=== PATIENT | female | born 1960 | race Caucasian/White ===

== ENCOUNTER 2016-07-05 06:22 | Inpatient (IN) ==
[2016-07-05] MEDS ORDERED: Ipratropium/Albuterol Neb 3 ML IH ONE (06:27)
[2016-07-05] MEDS ORDERED: methylPREDNISolone 125 MG/2 ML VIAL IVP ONE (06:27)
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
[2016-07-05 07:10] LABS: Basophils % 0.4 %; Eosinophils # 0.1 K/mcL (0.0-0.6); Eosinophils % 1.3 %; Hematocrit 39.7 % (35.3-44.9); Hemoglobin 12.1 g/dL (11.5-15.4); Immature Granulocytes % 0.7 % (0-4); Lymphocytes # 1.3 K/mcL (0.6-4.6); Lymphocytes % 15.2 %; Mean Corpuscular HGB Conc 30.5 g/dL (31.6-35.5); Mean Corpuscular Hemoglobin 30.9 pg (28.0-33.3); Mean Corpuscular Volume 101.3 fL (83.0-100.0); Mean Platelet Volume 9.6 fL (9.4-12.4); Monocytes # 0.5 K/mcL (0.0-1.3); Monocytes % 5.8 %; Neutrophils # 6.4 K/mcL (1.6-8.9); Nucleated Red Blood Cells 0.2 /100 WBC (0); Platelet Count 272 K/mcL (140-400); Red Blood Count 3.92 M/mcL (3.82-4.97); Red Cell Distribution Width 14.8 % (11.5-14.5); Segmented Neutrophils % 76.6 %
[2016-07-05 07:27] LABS: BUN/Creatinine Ratio 23 (6-26); Blood Urea Nitrogen 18 mg/dL (7-20); Calcium 8.9 mg/dL (8.6-10.8); Carbon Dioxide 30 mEq/L (19-29); Chloride 105 mEq/L (98-109); Glucose 136 mg/dL (70-99); Osmolality,Calculated 300 (280-300); Sodium 143 mEq/L (136-145); eGFR For African Americans > 60 (> 60); eGFR For Non-African Americans > 60 (> 60)
[2016-07-05] MEDS ORDERED: Furosemide 40 MG/4 ML VIAL IVP ONE (07:47)
[2016-07-05] MEDS ORDERED: Naloxone 0.4 MG/ML INJ IVP PRN (08:41)
[2016-07-05] MEDS ORDERED: *HR* Morphine 2 MG/ML SYRINGE IVP PRN (08:41)
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
[2016-07-05] MEDS: Aspirin 325 MG TABLET PO SCH (10:37)
[2016-07-05] MEDS: Diltiazem CD (24hr) 180 MG CAPSULE PO SCH (10:38)
[2016-07-05] MEDS: Levofloxacin 750 MG/150 ML 750 MG/150 ML BAG IVPB SCH (10:38)
[2016-07-05] MEDS: Furosemide 40 MG TABLET PO SCH (10:38)
[2016-07-05] MEDS: Ipratropium/Albuterol Neb 3 ML IH SCH ×5 (10:43→23:29)
[2016-07-05] MEDS: Acetaminophen 325 MG TABLET PO PRN (12:38)
--- NOTE | 2016-07-05 16:41 | Electrocardiograph Report ---
[address] [address] Test Date: 2016-07-05 Pat Name: Shanda Mccormick Department: 105 Room: 2A Gender: F Manager Federal: : 1960 Requested By: Azam Barillas Order Number: [id number] Reading MD: Mp Shafer Measurements Intervals [place] Rate: 89 P: NE: 0 QRS: 27 QRSD: 91 T: 42 QT: 365 QTc: 412 Interpretive Statements ATRIAL FIBRILLATION LOW QRS VOLTAGE Electronically Signed On 07-05-2016 16:40:05 EST by Mp Shafer
[2016-07-05] MEDS: *HR* Heparin 5,000 UNIT/ML VIAL SQ SCH (16:59)
[2016-07-05] MEDS: MethylPREDNISolone 40 MG/ML VIAL IVP SCH (16:59)
[2016-07-06] MEDS: MethylPREDNISolone 40 MG/ML VIAL IVP SCH ×4 (00:25→21:35)
[2016-07-06] MEDS: *HR* Heparin 5,000 UNIT/ML VIAL SQ SCH ×4 (00:26→21:35)
[2016-07-06] MEDS: Ipratropium/Albuterol Neb 3 ML IH SCH ×7 (00:45→23:14)
[2016-07-06 07:11] LABS: Basophils % 0.1 %; Hematocrit 38.1 % (35.3-44.9); Hemoglobin 11.8 g/dL (11.5-15.4); Immature Granulocytes % 0.9 % (0-4); Mean Corpuscular Hemoglobin 30.8 pg (28.0-33.3); Mean Corpuscular Volume 99.5 fL (83.0-100.0); Mean Platelet Volume 9.8 fL (9.4-12.4); Monocytes # 0.3 K/mcL (0.0-1.3); Monocytes % 3.1 %; Neutrophils # 7.8 K/mcL (1.6-8.9); Nucleated Red Blood Cells 0.2 /100 WBC (0); Platelet Count 289 K/mcL (140-400); Red Blood Count 3.83 M/mcL (3.82-4.97); Red Cell Distribution Width 14.5 % (11.5-14.5); Segmented Neutrophils % 84.9 %
[2016-07-06 07:30] LABS: Alanine Aminotransferase 14 Units/L (0-55); Albumin 2.9 g/dL (3.5-5.0); Albumin/Globulin Ratio 0.6 (1.1-2.2); Alkaline Phosphatase 96 Units/L (38-126); Aspartate Amino Transferase 15 Units/L (5-34); BUN/Creatinine Ratio 22 (6-26); Bilirubin,Total 0.4 mg/dL (0.2-1.2); Blood Urea Nitrogen 16 mg/dL (7-20); Calcium 8.7 mg/dL (8.6-10.8); Carbon Dioxide 29 mEq/L (19-29); Chloride 103 mEq/L (98-109); Cholesterol 104 mg/dL (< 200); Globulin 4.5 g/dL (2.4-3.5); Glucose 179 mg/dL (70-99); HDL Cholesterol 35 mg/dL (40-59); LDL Cholesterol,Calculated 51 mg/dL (0-99); Magnesium 1.9 mg/dL (1.6-2.6); Osmolality,Calculated 300 (280-300); Phosphorous 3.3 mg/dL (2.3-4.7); Potassium 4.1 mEq/L (3.5-4.5); Sodium 142 mEq/L (136-145); Total Protein 7.4 g/dL (6.0-8.3); Triglycerides 92 mg/dL (< 150); eGFR For African Americans > 60 (> 60); eGFR For Non-African Americans > 60 (> 60)
[2016-07-06] MEDS: Diltiazem CD (24hr) 180 MG CAPSULE PO SCH (09:36)
[2016-07-06] MEDS: Furosemide 40 MG TABLET PO SCH (09:36)
[2016-07-06] MEDS: Aspirin 325 MG TABLET PO SCH (09:37)
[2016-07-06] MEDS: Levofloxacin 750 MG/150 ML 750 MG/150 ML BAG IVPB SCH (09:37)
--- NOTE | 2016-07-06 16:38 | Internal Med Progress Note ---
Date of Encounter: 07/06/16 Time of Encounter: 16:35 - Assessment and plan (1) COPD exacerbation Current Visit: Yes Status: Acute Assessment and plan: Continue treatment for COPD exacerbation with systemic steroids, IV Levaquin, nebulizer therapy. Patient is at high risk of developing respiratory failure due to severe COPD. Continue with long-term oxygen therapy. DVT prophylaxis. Patient has a villagomez placed, will d/c villagomez today. Evaluation by physical therapy and local patient had therapy, might benefit from placement upon discharge. (2) TYE (obstructive sleep apnea) Current Visit: Yes Status: Acute Assessment and plan: Will try to qualify her for bipap. Not formally diagnosed with TYE yet. (3) Acute and chronic respiratory failure Current Visit: No Status: Acute Qualifiers: Respiratory failure complication: hypoxia and hypercapnia Qualified Code(s) : J96.21 - Acute and chronic respiratory failure with hypoxia; J96.22 - Acute and chronic respiratory failure with hypercapnia (4) Atrial fibrillation Current Visit: No Status: Acute Qualifiers: Atrial fibrillation type: unspecified Qualified Code(s): I48.91 - Unspecified atrial fibrillation (5) Tobacco use disorder Current Visit: No Status: Acute (6) Morbid obesity Current Visit: Yes Status: Acute Qualifiers: Obesity type: unspecified obesity type Qualified Code(s): E66.01 - Morbid ( severe) obesity due to excess calories - Time Spent With Patient 25 - 35 minutes - Subjective Interval history: 1st encounter with the patient. Still SOB. no fever, no chest pain. - Constitutional Vitals: Temp Pulse Resp BP Pulse Ox 98.2 F 95 22 128/77 92 L 07/06/16 15:49 07/06/16 15:49 07/06/16 15:49 07/06/16 15:49 07/06/16 15:49 General appearance: Present: A&O X 3, morbidly obese, pleasant, no acute distress, answers questions appropriately - Head Head exam: Present: atraumatic, normocephalic - Eye Eye exam: Present: PERRL, conjuntiva pink, sclera anicteric Pupils: Present: PERRL - Neck Neck exam general surgery: Present: supple, trachea midline. Absent: lymphadenopathy - Respiratory Respiratory exam: Present: decreased breath sounds, wheezes. Absent: accessory muscle use, rales, rhonchi - Cardiovascular Cardiovascular exam: Present: RRR, +S1, +S2. Absent: diastolic murmur, gallop, rubs, systolic murmur - GI/Abdominal GI/Abdominal exam: Present: normal bowel sounds, soft, no peritoneal signs. Absent: distended, tenderness - Extremities Exam Extremities exam: Present: warm, radial pulses palpable and symetrical. Absent : calf tenderness, cyanotic, pedal edema - Neurological Exam Neurological exam: Present: CN II-XII intact, oriented X3, no focal deficits. Absent: pronater drift, facial droop, speech deficit - Skin Skin exam: Present: dry, intact Internal Medicine: Result - Labs CBC & Chem 7: 07/06/16 06:03 07/06/16 06:03 Labs: Short CBC 07/06/16 Range/Units 06:03 WBC 9.2 (4.3-11.1) K/mcL Hgb 11.8 (11.5-15.4) g/dL Hct 38.1 (35.3-44.9) % Plt Count 289 (140-400) K/mcL Neutrophils # 7.8 (1.6-8.9) K/mcL BMP 07/06/16 06:03 Sodium 142 Potassium 4.1 Chloride 103 Carbon Dioxide 29 BUN 16 Creatinine 0.73 Glucose 179 H Calcium 8.7 Cardiac Enzymes 07/05/16 Range/Units 21:04 Troponin I 0.00 (0-0.03) ng/mL Liver Function 07/06/16 Range/Units 06:03 Total Bilirubin 0.4 (0.2-1.2) mg/dL AST 15 (5-34) Units/L ALT 14 (0-55) Units/L Alkaline Phosphatase 96 (38-126) Units/L Albumin 2.9 L (3.5-5.0) g/dL Consult Discharge Plan - Plan Referrals: Blanche Caro CNP [Primary Care Provider] - 07/12/16 1:30 pm ()
[2016-07-07] MEDS: Ipratropium/Albuterol Neb 3 ML IH SCH ×6 (04:00→23:20)
[2016-07-07 05:16] LABS: Bilirubin,Urine Negative (Negative); Blood,Urine Negative (Negative); Clarity,Urine Cloudy (Clear); Color,Urine Yellow (Yellow); Glucose,Urine (UA) Normal (Normal); Ketones,Urine Negative (Negative); Leukocyte Esterase,Urine Negative (Negative); Nitrite,Urine Negative (Negative); Protein,Urine Trace mg/dL (Neg-Trace); Specific Gravity,Urine > 1.030 (1.010-1.025); Urobilinogen,Urine Normal (Normal)
[2016-07-07 05:18] LABS: Bacteria,Urine Few per hpf (None-Few); Hyaline Casts,Urine None Seen per lpf (None-Few); RBC,Urine 0-3 per hpf (0-3); Squamous Epithelial Cell,Urine Many per lpf (None-Few)
[2016-07-07] MEDS: Aspirin 325 MG TABLET PO SCH (10:12)
[2016-07-07] MEDS: Diltiazem CD (24hr) 180 MG CAPSULE PO SCH (10:12)
[2016-07-07] MEDS: Levofloxacin 750 MG/150 ML 750 MG/150 ML BAG IVPB SCH (10:13)
[2016-07-07] MEDS: Furosemide 40 MG TABLET PO SCH (10:13)
[2016-07-07] MEDS: *HR* Heparin 5,000 UNIT/ML VIAL SQ SCH ×2 (10:13→17:16)
[2016-07-07] MEDS: MethylPREDNISolone 40 MG/ML VIAL IVP SCH ×2 (10:13→17:16)
--- NOTE | 2016-07-07 15:32 | Internal Med Progress Note ---
Date of Encounter: 07/07/16 Time of Encounter: 15:30 - Assessment and plan (1) COPD exacerbation Current Visit: Yes Status: Acute Assessment and plan: Continue treatment for COPD exacerbation with systemic steroids, IV Levaquin, nebulizer therapy. Patient is at high risk of developing respiratory failure due to severe COPD and morbid obesity with a likely component of TYE.. Continue with long-term oxygen therapy. DVT prophylaxis. Leigh was removed yesterday. Evaluation by physical therapy and occupational therapy noted, they recommend ECF upon discharge. D/W patient. (2) TYE (obstructive sleep apnea) Current Visit: Yes Status: Acute (3) Acute and chronic respiratory failure Current Visit: No Status: Acute Qualifiers: Respiratory failure complication: hypoxia and hypercapnia Qualified Code(s) : J96.21 - Acute and chronic respiratory failure with hypoxia; J96.22 - Acute and chronic respiratory failure with hypercapnia (4) Atrial fibrillation Current Visit: No Status: Acute Qualifiers: Atrial fibrillation type: unspecified Qualified Code(s): I48.91 - Unspecified atrial fibrillation (5) Tobacco use disorder Current Visit: No Status: Acute Assessment and plan: Smoking cessation counselling provided. (6) Morbid obesity Current Visit: Yes Status: Acute Qualifiers: Obesity type: unspecified obesity type Qualified Code(s): E66.01 - Morbid ( severe) obesity due to excess calories - Time Spent With Patient 25 - 35 minutes - Subjective Interval history: Still SOB but better than yesterday.. no fever, no chest pain. PT eval noted. - Constitutional Vitals: Temp Pulse Resp BP Pulse Ox 97.8 F 80 16 129/74 92 L 07/07/16 11:19 07/07/16 11:19 07/07/16 11:19 07/07/16 11:19 07/07/16 11:19 General appearance: Present: A&O X 3, morbidly obese, pleasant, no acute distress, answers questions appropriately - Head Head exam: Present: atraumatic, normocephalic - Eye Eye exam: Present: PERRL, conjuntiva pink, sclera anicteric Pupils: Present: PERRL - Neck Neck exam general surgery: Present: supple, trachea midline. Absent: lymphadenopathy - Respiratory Respiratory exam: Present: decreased breath sounds, wheezes. Absent: accessory muscle use, rales, rhonchi - Cardiovascular Cardiovascular exam: Present: RRR, +S1, +S2. Absent: diastolic murmur, gallop, rubs, systolic murmur - GI/Abdominal GI/Abdominal exam: Present: normal bowel sounds, soft, no peritoneal signs. Absent: distended, tenderness - Extremities Exam Extremities exam: Present: warm, radial pulses palpable and symetrical. Absent : calf tenderness, cyanotic, pedal edema - Neurological Exam Neurological exam: Present: CN II-XII intact, oriented X3, no focal deficits. Absent: pronater drift, facial droop, speech deficit - Skin Skin exam: Present: dry, intact Internal Medicine: Result - Labs CBC & Chem 7: 07/06/16 06:03 07/06/16 06:03 Labs: Urine 07/07/16 Range/Units 04:45 Urine Color Yellow (Yellow) Urine Clarity Cloudy A (Clear) Urine pH 6.0 (5.0-8.0) pH Units Ur Specific [place] > 1.030 H (1.010-1.025) Urine Protein Trace (Neg-Trace) mg/dL Urine Glucose (UA) Normal (Normal) mg/dL Consult Discharge Plan - Plan Referrals: Blanche Caro, PATIENCE [Primary Care Provider] - 07/12/16 1:30 pm ()
[2016-07-08] MEDS: *HR* Heparin 5,000 UNIT/ML VIAL SQ SCH ×4 (00:22→23:34)
[2016-07-08] MEDS: MethylPREDNISolone 40 MG/ML VIAL IVP SCH ×4 (00:23→23:34)
[2016-07-08] MEDS: Ipratropium/Albuterol Neb 3 ML IH SCH ×5 (04:08→20:35)
[2016-07-08 06:55] LABS: Basophils % 0.1 %; Hematocrit 38.9 % (35.3-44.9); Hemoglobin 11.8 g/dL (11.5-15.4); Immature Granulocytes % 0.9 % (0-4); Lymphocytes # 1.2 K/mcL (0.6-4.6); Lymphocytes % 7.6 %; Mean Corpuscular HGB Conc 30.3 g/dL (31.6-35.5); Mean Corpuscular Volume 102.1 fL (83.0-100.0); Mean Platelet Volume 9.8 fL (9.4-12.4); Monocytes # 0.5 K/mcL (0.0-1.3); Monocytes % 3.5 %; Neutrophils # 13.5 K/mcL (1.6-8.9); Platelet Count 294 K/mcL (140-400); Red Blood Count 3.81 M/mcL (3.82-4.97); Red Cell Distribution Width 14.7 % (11.5-14.5); Segmented Neutrophils % 87.9 %
[2016-07-08 07:09] LABS: BUN/Creatinine Ratio 28 (6-26); Blood Urea Nitrogen 23 mg/dL (7-20); Calcium 8.7 mg/dL (8.6-10.8); Carbon Dioxide 30 mEq/L (19-29); Chloride 103 mEq/L (98-109); Glucose 127 mg/dL (70-99); Osmolality,Calculated 299 (280-300); Potassium 4.7 mEq/L (3.5-4.5); Sodium 142 mEq/L (136-145); eGFR For African Americans > 60 (> 60); eGFR For Non-African Americans > 60 (> 60)
[2016-07-08] MEDS: levoFLOXacin 750 MG TABLET PO SCH (09:10)
[2016-07-08] MEDS: Diltiazem CD (24hr) 180 MG CAPSULE PO SCH (09:10)
[2016-07-08] MEDS: Furosemide 40 MG TABLET PO SCH (09:11)
[2016-07-08] MEDS: Aspirin 325 MG TABLET PO SCH (09:11)
--- NOTE | 2016-07-08 10:46 | Discharge Summary ---
Date of Encounter: 07/08/16 Time of Encounter: 10:42 - Discharge Diagnosis (1) COPD exacerbation Priority: Primary Status: Acute (2) TYE (obstructive sleep apnea) Priority: Secondary Status: Acute (3) Acute and chronic respiratory failure Priority: Secondary Status: Acute Qualifiers: Respiratory failure complication: hypoxia and hypercapnia Qualified Code(s) : J96.21 - Acute and chronic respiratory failure with hypoxia; J96.22 - Acute and chronic respiratory failure with hypercapnia (4) Atrial fibrillation Priority: Secondary Status: Acute Qualifiers: Atrial fibrillation type: unspecified Qualified Code(s): I48.91 - Unspecified atrial fibrillation (5) Tobacco use disorder Priority: Secondary Status: Acute (6) Morbid obesity Priority: Secondary Status: Acute Qualifiers: Obesity type: unspecified obesity type Qualified Code(s): E66.01 - Morbid ( severe) obesity due to excess calories - Discharge Medications Prescriptions: Levofloxacin 750 mg PO DAILY #5 tablet PredniSONE [Prednisone] 10 mg PO DAILY #42 tab.ds.pk Home Medications: Aclidinium [place] [Tudorza Pressair] 1 puff IH BID 09/08/15 [History] Albuterol Sulfate [Proair Hfa] 2 puff IH Q4H PRN 09/08/15 [History] Budesonide/Formoterol 160/4.5 [Symbicort 160/4.5] 2 puff IH BIDR 09/08/15 [ History] Furosemide [Lasix] 40 mg PO DAILY 09/08/15 [History] Simvastatin [Zocor] 40 mg PO HS 09/08/15 [History] Aspirin 325 mg PO DAILY #60 tablet 09/19/15 [Rx] Diltiazem CD (24hr) [Cardizem CD] 360 mg PO DAILY #30 cap.er.24h 09/19/15 [Rx] Metoprolol [Lopressor] 50 mg PO BID #60 tablet 09/19/15 [Rx] Albuterol Neb [Proventil Neb] 2.5 mg IH Q4HR 07/05/16 [History] GuaiFENesin ER [Mucinex] 600 mg PO Q12H PRN 07/05/16 [History] Levofloxacin 750 mg PO DAILY #5 tablet 07/08/16 [Rx] PredniSONE [Prednisone] 10 mg PO DAILY #42 tab.ds.pk 07/08/16 [Rx] Allergies/Adverse Reactions: Allergies Penicillins Allergy (Verified 07/05/16 08:16) Rash Date of admission: 07/05/16 08:41 Primary care physician: Blanche Caro CNP Consults: 07/06/16 09:14 Consult to Occupational Therapy [CONS] Routine Comment: Evaluate, develop and implement POC Consult to Physical Therapy [CONS] Routine Comment: Evaluate, develop and implement POC Discharging clinician: Noe Pepe Anticipated date of discharge: 07/08/16 - Patient Status Disposition: Transfer SNF Condition: Good Functional capacity at discharge: uses cane/walker Overall status at discharge: patient is progressing back to baseline - Discharge Instructions Follow Up With: Blanche Caro CNP [Primary Care Provider] - 07/12/16 1:30 pm () Additional Instructions: Follow up with pcp and pulmonology. Needs sleep study as outpatient. - Diet and Activity Activity: as per physical therapy Diet: low salt diet Interval History: PCP: Dr Gatica Claims Adjuster Supervisor : Dr Razo/Dr Ritter. Brief PMH : PreDM, HTN, Dyslipidemia, Paroxysmal Afib not on anticoagulation ( CHADsVaSc 3 but not on A/C as she is non complaint and history of ETOH abuse: risk of fall, Discussed previously by cardiology), morbid obesity. HPI: patient was not feeling well for past 3 days. she has ongoing cough along with SOB. she had also yellowish sputum production. Last night her daughter made chicken at home and as per patient and her daughter there were lot of fumes which made her difficulty in breathing. patient denies chest pain, diarrhea, vomiting or dizziness. Course in ER: noted that basic work up along with Carboxy Hb was done and appears to be in normal limits. Off note : Live bed was found crawling on her body in ER. reason for admission: COPD exacerbation precipitated by Fumes at home. family history non contributory. Hospital course: Ms. Mccormick is a 55 year old female admitted due to COPD exacerbation improved with treatment which included systemic steroids, IV Levaquin, nebulizer therapy. No evidence of pneumonia. Patient is at high risk of developing respiratory failure due to severe COPD and morbid obesity with a likely component of TYE.. Continue with long-term oxygen therapy. Recommend outpatient sleep study and follow up with pulmonology and pcp. Leigh was removed 2 days ago. Leukocytosis likely induced by steroids. Complete course of po levaquin. Resume home meds. Will switch to po prednisone and discharge her today to ECF as recommended by PT. Patient agreed. - Time Spent with Patient Total time spent providing and/or coordinating discharge services: Greater than 30 minutes - Constitutional Vitals: Temp Pulse Resp BP Pulse Ox 98.5 F 87 16 137/85 93 L 07/08/16 07:14 07/08/16 07:14 07/08/16 08:11 07/08/16 07:14 07/08/16 08:11 General appearance: Present: A&O X 3, morbidly obese, pleasant, no acute distress, answers questions appropriately - Head Head exam: Present: atraumatic, normocephalic - Eye Eye exam: Present: PERRL, conjuntiva pink, sclera anicteric Pupils: Present: PERRL - Neck Neck exam general surgery: Present: supple, trachea midline. Absent: lymphadenopathy - Respiratory Respiratory exam: Present: decreased breath sounds. Absent: accessory muscle use, rales, rhonchi, wheezes - Cardiovascular Cardiovascular exam: Present: RRR, +S1, +S2. Absent: diastolic murmur, gallop, rubs, systolic murmur - GI/Abdominal GI/Abdominal exam: Present: normal bowel sounds, soft, no peritoneal signs. Absent: distended, tenderness - Extremities Exam Extremities exam: Present: warm, radial pulses palpable and symetrical. Absent : calf tenderness, cyanotic, pedal edema - Neurological Exam Neurological exam: Present: CN II-XII intact, oriented X3, no focal deficits. Absent: pronater drift, facial droop, speech deficit - Skin Skin exam: Present: dry, intact
--- NOTE | 2016-07-08 10:51 | Physician Discharge Referral ---
ExtendedCare Referral Info Transfer To: ECF Provider in Charge after Transfer: PCP Institutional Level of Care: Skilled - Diagnosis (1) COPD exacerbation Status: Acute (2) TYE (obstructive sleep apnea) Status: Acute (3) Acute and chronic respiratory failure Status: Acute (4) Atrial fibrillation Status: Acute (5) Tobacco use disorder Status: Acute (6) Morbid obesity Status: Acute - Transfer Medications Prescriptions: Levofloxacin 750 mg PO DAILY #5 tablet PredniSONE [Prednisone] 10 mg PO DAILY #42 tab.ds.pk Home Medications: Aclidinium [place] [Tudorza Pressair] 1 puff IH BID 09/08/15 [History] Albuterol Sulfate [Proair Hfa] 2 puff IH Q4H PRN 09/08/15 [History] Budesonide/Formoterol 160/4.5 [Symbicort 160/4.5] 2 puff IH BIDR 09/08/15 [ History] Furosemide [Lasix] 40 mg PO DAILY 09/08/15 [History] Simvastatin [Zocor] 40 mg PO HS 09/08/15 [History] Aspirin 325 mg PO DAILY #60 tablet 09/19/15 [Rx] Diltiazem CD (24hr) [Cardizem CD] 360 mg PO DAILY #30 cap.er.24h 09/19/15 [Rx] Metoprolol [Lopressor] 50 mg PO BID #60 tablet 09/19/15 [Rx] Albuterol Neb [Proventil Neb] 2.5 mg IH Q4HR 07/05/16 [History] GuaiFENesin ER [Mucinex] 600 mg PO Q12H PRN 07/05/16 [History] Levofloxacin 750 mg PO DAILY #5 tablet 07/08/16 [Rx] PredniSONE [Prednisone] 10 mg PO DAILY #42 tab.ds.pk 07/08/16 [Rx] Allergies/Adverse Reactions: Allergies Penicillins Allergy (Verified 07/05/16 08:16) Rash - Respiratory Orders Oxygen / L per min Smoking Cessation: Smoking cessation has been advised. For more information, call the [place] Tobacco Quit Line at 1-394-TWBV-NOW. - Ancillary Orders May use pressure relief devices daily prn, May go on KACY w/family/respon democrat w /meds at nurse discretion PRN, May consult with Dentist, Jacquard Loom Heddles Tier, Cloth Doffer PRN - Advance Directives Code Status: Full Code - Mobility Orders Other ( per PT. Fall precautions.) - Rehabiliation Orders Rehab Orders: ROM Exercises, Evaluation for Physical Therapy, Evaluation for Occupational Therapy - Diet Orders Cardiac CERTIFICATION: I certify that the transfer of the above named patient to an Extended Care Facility is necessary for the continuing treatment of the diagnosis listed. The above information is true and accurate reflection of patient's current condition. Confidential - Redisclosure prohibited without a patient's written consent.
[2016-07-09] MEDS: Ipratropium/Albuterol Neb 3 ML IH SCH ×7 (00:18→22:25)
[2016-07-09 07:06] LABS: Basophils % 0.1 %; Immature Granulocytes % 1.1 % (0-4); Lymphocytes # 1.1 K/mcL (0.6-4.6); Lymphocytes % 8.3 %; Mean Corpuscular HGB Conc 31.6 g/dL (31.6-35.5); Mean Corpuscular Hemoglobin 31.5 pg (28.0-33.3); Mean Corpuscular Volume 99.7 fL (83.0-100.0); Mean Platelet Volume 9.8 fL (9.4-12.4); Monocytes # 0.4 K/mcL (0.0-1.3); Monocytes % 3.3 %; Neutrophils # 11.5 K/mcL (1.6-8.9); Platelet Count 268 K/mcL (140-400); Red Blood Count 3.81 M/mcL (3.82-4.97); Red Cell Distribution Width 14.4 % (11.5-14.5); Segmented Neutrophils % 87.2 %
[2016-07-09 07:29] LABS: BUN/Creatinine Ratio 26 (6-26); Blood Urea Nitrogen 22 mg/dL (7-20); Carbon Dioxide 31 mEq/L (19-29); Chloride 100 mEq/L (98-109); Glucose 150 mg/dL (70-99); Osmolality,Calculated 298 (280-300); Potassium 4.7 mEq/L (3.5-4.5); Sodium 141 mEq/L (136-145); eGFR For African Americans > 60 (> 60); eGFR For Non-African Americans > 60 (> 60)
[2016-07-09] MEDS: Diltiazem CD (24hr) 180 MG CAPSULE PO SCH (09:30)
[2016-07-09] MEDS: *HR* Heparin 5,000 UNIT/ML VIAL SQ SCH ×3 (09:30→23:39)
[2016-07-09] MEDS: levoFLOXacin 750 MG TABLET PO SCH (09:30)
[2016-07-09] MEDS: Aspirin 325 MG TABLET PO SCH (09:30)
[2016-07-09] MEDS: Furosemide 40 MG TABLET PO SCH (09:30)
[2016-07-09] MEDS: MethylPREDNISolone 40 MG/ML VIAL IVP SCH ×3 (09:30→23:39)
--- NOTE | 2016-07-09 15:52 | Internal Med Progress Note ---
Date of Encounter: 07/09/16 Time of Encounter: 07:55 - Assessment and plan (1) COPD exacerbation Current Visit: Yes Status: Acute Assessment and plan: Admitted due to COPD exacerbation responded well to treatment with systemic steroids, IV Levaquin, nebulizer therapy. Patient is at high risk of developing respiratory failure due to severe COPD and morbid obesity with a likely component of TYE.. Continue with long-term oxygen therapy. DVT prophylaxis. Leigh was removed. Evaluation by physical therapy and occupational therapy noted, they recommend ECF upon discharge.Patient was medically discharged yesterday, awaiting placement. Non tachycardic today, afebrile. D/W patient. (2) TYE (obstructive sleep apnea) Current Visit: Yes Status: Acute (3) Acute and chronic respiratory failure Current Visit: No Status: Acute Qualifiers: Respiratory failure complication: hypoxia and hypercapnia Qualified Code(s) : J96.21 - Acute and chronic respiratory failure with hypoxia; J96.22 - Acute and chronic respiratory failure with hypercapnia (4) Atrial fibrillation Current Visit: No Status: Acute Qualifiers: Atrial fibrillation type: unspecified Qualified Code(s): I48.91 - Unspecified atrial fibrillation (5) Tobacco use disorder Current Visit: No Status: Acute (6) Morbid obesity Current Visit: Yes Status: Acute Qualifiers: Obesity type: unspecified obesity type Qualified Code(s): E66.01 - Morbid ( severe) obesity due to excess calories - Subjective Interval history: Still SOB but better than yesterday.. no fever, no chest pain. PT eval noted. - Constitutional Vitals: Temp Pulse Resp BP Pulse Ox 98.4 F 81 18 121/80 94 L 07/09/16 04:16 07/09/16 09:48 07/09/16 12:04 07/09/16 04:16 07/09/16 12:04 General appearance: Present: A&O X 3, morbidly obese, pleasant, no acute distress, answers questions appropriately - Head Head exam: Present: atraumatic, normocephalic - Eye Eye exam: Present: PERRL, conjuntiva pink, sclera anicteric Pupils: Present: PERRL - Neck Neck exam general surgery: Present: supple, trachea midline. Absent: lymphadenopathy - Respiratory Respiratory exam: Present: CTAB. Absent: accessory muscle use, rales, rhonchi, wheezes - Cardiovascular Cardiovascular exam: Present: RRR, +S1, +S2. Absent: diastolic murmur, gallop, rubs, systolic murmur - GI/Abdominal GI/Abdominal exam: Present: normal bowel sounds, soft, no peritoneal signs. Absent: distended, tenderness - Extremities Exam Extremities exam: Present: warm, radial pulses palpable and symetrical. Absent : calf tenderness, cyanotic, pedal edema - Neurological Exam Neurological exam: Present: CN II-XII intact, oriented X3, no focal deficits. Absent: pronater drift, facial droop, speech deficit - Skin Skin exam: Present: dry, intact Internal Medicine: Result - Labs CBC & Chem 7: 07/09/16 06:32 07/09/16 06:32 Labs: Short CBC 07/09/16 Range/Units 06:32 WBC 13.2 H (4.3-11.1) K/mcL Hgb 12.0 (11.5-15.4) g/dL Hct 38.0 (35.3-44.9) % Plt Count 268 (140-400) K/mcL Neutrophils # 11.5 H (1.6-8.9) K/mcL BMP 07/09/16 06:32 Sodium 141 Potassium 4.7 H Chloride 100 Carbon Dioxide 31 H BUN 22 H Creatinine 0.84 Glucose 150 H Calcium 9.0 Consult Discharge Plan - Plan Additional Instructions: Follow up with pcp and pulmonology. Needs sleep study as outpatient. Referrals: Blanche Caro, COFFEE URN ATTENDANT [Primary Care Provider] - (Please follow up with PCP at [facility]) Prescriptions: Levofloxacin 750 mg PO DAILY #5 tablet PredniSONE [Prednisone] 10 mg PO DAILY #42 tab.ds.pk
[2016-07-10] MEDS: Acetaminophen 325 MG TABLET PO PRN (04:09)
[2016-07-10] MEDS: Ipratropium/Albuterol Neb 3 ML IH SCH ×6 (04:31→23:59)
[2016-07-10 07:50] LABS: Basophils % 0.1 %; Hematocrit 37.7 % (35.3-44.9); Hemoglobin 11.7 g/dL (11.5-15.4); Immature Granulocytes % 1.5 % (0-4); Lymphocytes # 0.9 K/mcL (0.6-4.6); Lymphocytes % 7.4 %; Mean Corpuscular Volume 99.7 fL (83.0-100.0); Mean Platelet Volume 9.8 fL (9.4-12.4); Monocytes # 0.4 K/mcL (0.0-1.3); Monocytes % 3.3 %; Neutrophils # 10.1 K/mcL (1.6-8.9); Platelet Count 253 K/mcL (140-400); Red Blood Count 3.78 M/mcL (3.82-4.97); Red Cell Distribution Width 14.1 % (11.5-14.5); Segmented Neutrophils % 87.7 %
[2016-07-10 08:01] LABS: BUN/Creatinine Ratio 30 (6-26); Blood Urea Nitrogen 25 mg/dL (7-20); Calcium 8.5 mg/dL (8.6-10.8); Carbon Dioxide 32 mEq/L (19-29); Chloride 100 mEq/L (98-109); Glucose 146 mg/dL (70-99); Osmolality,Calculated 297 (280-300); Potassium 4.5 mEq/L (3.5-4.5); Sodium 140 mEq/L (136-145); eGFR For African Americans > 60 (> 60); eGFR For Non-African Americans > 60 (> 60)
[2016-07-10] MEDS: Diltiazem CD (24hr) 180 MG CAPSULE PO SCH (09:13)
[2016-07-10] MEDS: Aspirin 325 MG TABLET PO SCH (09:13)
[2016-07-10] MEDS: Furosemide 40 MG TABLET PO SCH (09:13)
[2016-07-10] MEDS: levoFLOXacin 750 MG TABLET PO SCH (09:13)
[2016-07-10] MEDS: MethylPREDNISolone 40 MG/ML VIAL IVP SCH ×2 (09:14→16:50)
[2016-07-10] MEDS: *HR* Heparin 5,000 UNIT/ML VIAL SQ SCH ×2 (09:14→16:50)
--- NOTE | 2016-07-10 13:26 | Internal Med Progress Note ---
Date of Encounter: 07/10/16 Time of Encounter: 09:00 - Assessment and plan (1) COPD exacerbation Current Visit: Yes Status: Acute Assessment and plan: Admitted due to COPD exacerbation responded well to treatment with systemic steroids, IV Levaquin, nebulizer therapy. Patient is at high risk of developing respiratory failure due to severe COPD and morbid obesity with a likely component of TYE.. Continue with long-term oxygen therapy. DVT prophylaxis. Leigh was removed. Evaluation by physical therapy and occupational therapy noted, they recommend ECF upon discharge.Patient was medically discharged 2 days ago, awaiting placement. Non tachycardic today, afebrile. D/W patient. (2) TYE (obstructive sleep apnea) Current Visit: Yes Status: Acute (3) Acute and chronic respiratory failure Current Visit: No Status: Acute Qualifiers: Respiratory failure complication: hypoxia and hypercapnia Qualified Code(s) : J96.21 - Acute and chronic respiratory failure with hypoxia; J96.22 - Acute and chronic respiratory failure with hypercapnia (4) Atrial fibrillation Current Visit: No Status: Acute Qualifiers: Atrial fibrillation type: unspecified Qualified Code(s): I48.91 - Unspecified atrial fibrillation (5) Tobacco use disorder Current Visit: No Status: Acute (6) Morbid obesity Current Visit: Yes Status: Acute Qualifiers: Obesity type: unspecified obesity type Qualified Code(s): E66.01 - Morbid ( severe) obesity due to excess calories - Subjective Interval history: Mils sob, her baseline as per patient. no fever, no chest pain. PT eval noted. - Constitutional Vitals: Temp Pulse Resp BP Pulse Ox 98.2 F 81 16 142/94 94 L 07/10/16 11:50 07/10/16 11:50 07/10/16 11:50 07/10/16 11:50 07/10/16 11:50 General appearance: Present: A&O X 3, morbidly obese, pleasant, no acute distress, answers questions appropriately - Head Head exam: Present: atraumatic, normocephalic - Eye Eye exam: Present: PERRL, conjuntiva pink, sclera anicteric Pupils: Present: PERRL - Neck Neck exam general surgery: Present: supple, trachea midline. Absent: lymphadenopathy - Respiratory Respiratory exam: Present: decreased breath sounds. Absent: accessory muscle use, rales, rhonchi, wheezes - Cardiovascular Cardiovascular exam: Present: RRR, +S1, +S2. Absent: diastolic murmur, gallop, rubs, systolic murmur - GI/Abdominal GI/Abdominal exam: Present: normal bowel sounds, soft, no peritoneal signs. Absent: distended, tenderness - Extremities Exam Extremities exam: Present: warm, radial pulses palpable and symetrical. Absent : calf tenderness, cyanotic, pedal edema - Neurological Exam Neurological exam: Present: CN II-XII intact, oriented X3, no focal deficits. Absent: pronater drift, facial droop, speech deficit - Skin Skin exam: Present: dry, intact Internal Medicine: Result - Labs CBC & Chem 7: 07/10/16 07:09 07/10/16 07:09 Labs: Short CBC 07/10/16 Range/Units 07:09 WBC 11.5 H (4.3-11.1) K/mcL Hgb 11.7 (11.5-15.4) g/dL Hct 37.7 (35.3-44.9) % Plt Count 253 (140-400) K/mcL Neutrophils # 10.1 H (1.6-8.9) K/mcL BMP 07/10/16 07:09 Sodium 140 Potassium 4.5 Chloride 100 Carbon Dioxide 32 H BUN 25 H Creatinine 0.82 Glucose 146 H Calcium 8.5 L Consult Discharge Plan - Plan Additional Instructions: Follow up with pcp and pulmonology. Needs sleep study as outpatient. Referrals: Blanche Caro, RESIDENTIAL INSTRUCTOR [Primary Care Provider] - (Please follow up with PCP at [facility]) Prescriptions: Levofloxacin 750 mg PO DAILY #5 tablet PredniSONE [Prednisone] 10 mg PO DAILY #42 tab.ds.pk
[2016-07-11] MEDS: MethylPREDNISolone 40 MG/ML VIAL IVP SCH ×2 (00:41→09:04)
[2016-07-11] MEDS: *HR* Heparin 5,000 UNIT/ML VIAL SQ SCH ×2 (00:42→09:04)
[2016-07-11] MEDS: Ipratropium/Albuterol Neb 3 ML IH SCH ×3 (03:35→11:37)
[2016-07-11 07:49] LABS: Basophils % 0.2 %; Hematocrit 36.9 % (35.3-44.9); Hemoglobin 11.9 g/dL (11.5-15.4); Immature Granulocytes % 1.7 % (0-4); Lymphocytes # 0.8 K/mcL (0.6-4.6); Lymphocytes % 5.9 %; Mean Corpuscular HGB Conc 32.2 g/dL (31.6-35.5); Mean Corpuscular Hemoglobin 31.9 pg (28.0-33.3); Mean Corpuscular Volume 98.9 fL (83.0-100.0); Mean Platelet Volume 10.2 fL (9.4-12.4); Monocytes # 0.5 K/mcL (0.0-1.3); Monocytes % 3.5 %; Neutrophils # 11.9 K/mcL (1.6-8.9); Platelet Count 254 K/mcL (140-400); Red Blood Count 3.73 M/mcL (3.82-4.97); Red Cell Distribution Width 13.9 % (11.5-14.5); Segmented Neutrophils % 88.7 %
[2016-07-11 08:16] LABS: BUN/Creatinine Ratio 32 (6-26); Blood Urea Nitrogen 24 mg/dL (7-20); Calcium 8.5 mg/dL (8.6-10.8); Carbon Dioxide 32 mEq/L (19-29); Chloride 99 mEq/L (98-109); Glucose 159 mg/dL (70-99); Osmolality,Calculated 297 (280-300); Sodium 140 mEq/L (136-145); eGFR For African Americans > 60 (> 60); eGFR For Non-African Americans > 60 (> 60)
[2016-07-11 08:17] LABS: Potassium 4.6 mEq/L (3.5-4.5)
[2016-07-11] MEDS: Aspirin 325 MG TABLET PO SCH (09:03)
[2016-07-11] MEDS: Furosemide 40 MG TABLET PO SCH (09:03)
[2016-07-11] MEDS: Diltiazem CD (24hr) 180 MG CAPSULE PO SCH (09:04)
[2016-07-11] MEDS: levoFLOXacin 750 MG TABLET PO SCH (09:04)
--- NOTE | 2016-07-11 09:56 | Internal Med Progress Note ---
Date of Encounter: 07/11/16 Time of Encounter: 09:56 - Assessment and plan (1) COPD exacerbation Current Visit: Yes Status: Acute Assessment and plan: Admitted due to COPD exacerbation responded well to treatment with systemic steroids, IV Levaquin, nebulizer therapy. Patient is at high risk of developing respiratory failure due to severe COPD and morbid obesity with a likely component of TYE.. Continue with long-term oxygen therapy. DVT prophylaxis. Leigh was removed. Evaluation by physical therapy and occupational therapy noted, they recommend ECF upon discharge.Patient was medically discharged 3 days ago, awaiting placement. Non tachycardic today, afebrile. D/W patient. (2) TYE (obstructive sleep apnea) Current Visit: Yes Status: Acute (3) Acute and chronic respiratory failure Current Visit: No Status: Acute Qualifiers: Respiratory failure complication: hypoxia and hypercapnia Qualified Code(s) : J96.21 - Acute and chronic respiratory failure with hypoxia; J96.22 - Acute and chronic respiratory failure with hypercapnia (4) Atrial fibrillation Current Visit: No Status: Acute Qualifiers: Atrial fibrillation type: unspecified Qualified Code(s): I48.91 - Unspecified atrial fibrillation (5) Tobacco use disorder Current Visit: No Status: Acute (6) Morbid obesity Current Visit: Yes Status: Acute Qualifiers: Obesity type: unspecified obesity type Qualified Code(s): E66.01 - Morbid ( severe) obesity due to excess calories - Subjective Interval history: No sob, her baseline as per patient. no fever, no chest pain. PT eval noted. - Constitutional Vitals: Temp Pulse Resp BP Pulse Ox 97.5 F L 84 19 144/84 98 07/11/16 07:49 07/11/16 07:49 07/11/16 07:49 07/11/16 07:49 07/11/16 07:49 General appearance: Present: A&O X 3, morbidly obese, pleasant, no acute distress, answers questions appropriately - Head Head exam: Present: atraumatic, normocephalic - Eye Eye exam: Present: PERRL, conjuntiva pink, sclera anicteric Pupils: Present: PERRL - Neck Neck exam general surgery: Present: supple, trachea midline. Absent: lymphadenopathy - Respiratory Respiratory exam: Present: CTAB. Absent: accessory muscle use, rales, rhonchi, wheezes - Cardiovascular Cardiovascular exam: Present: RRR, +S1, +S2. Absent: diastolic murmur, gallop, rubs, systolic murmur - GI/Abdominal GI/Abdominal exam: Present: normal bowel sounds, soft, no peritoneal signs. Absent: distended, tenderness - Extremities Exam Extremities exam: Present: warm, radial pulses palpable and symetrical. Absent : calf tenderness, cyanotic, pedal edema - Neurological Exam Neurological exam: Present: CN II-XII intact, oriented X3, no focal deficits. Absent: pronater drift, facial droop, speech deficit - Skin Skin exam: Present: dry, intact Internal Medicine: Result - Labs CBC & Chem 7: 07/11/16 06:24 07/11/16 06:24 Labs: Short CBC 07/11/16 Range/Units 06:24 WBC 13.4 H (4.3-11.1) K/mcL Hgb 11.9 (11.5-15.4) g/dL Hct 36.9 (35.3-44.9) % Plt Count 254 (140-400) K/mcL Neutrophils # 11.9 H (1.6-8.9) K/mcL BMP 07/11/16 06:24 Sodium 140 Potassium 4.6 H Chloride 99 Carbon Dioxide 32 H BUN 24 H Creatinine 0.76 Glucose 159 H Calcium 8.5 L Consult Discharge Plan - Plan Additional Instructions: Follow up with pcp and pulmonology. Needs sleep study as outpatient. Referrals: Blanche Caro, WRAPPER CASER [Primary Care Provider] - (Please follow up with PCP at [facility]) Prescriptions: Levofloxacin 750 mg PO DAILY #5 tablet PredniSONE [Prednisone] 10 mg PO DAILY #42 tab.ds.pk
[2016-07-11 11:47] VITALS: BP 143/87
--- NOTE | 2016-07-11 15:00 | Physician Discharge Referral ---
Home Health/Hosp Referral Info Transfer to: Home Health Provider in Charge Post Discharge: PCP - Diagnosis (1) COPD exacerbation Status: Acute (2) TYE (obstructive sleep apnea) Status: Acute (3) Acute and chronic respiratory failure Status: Acute (4) Atrial fibrillation Status: Acute (5) Tobacco use disorder Status: Acute (6) Morbid obesity Status: Acute - Respiratory Orders Oxygen / L per min (3) Smoking Cessation: Smoking cessation has been advised. For more information, call the [employer] Quit Line at 5-311-FNEV-NOW. - Diet/Nutrition Diet/Nutrition Orders: Cardiac - Activity Activity Orders: Ambulate (As per PT. Fall precautions) - Services Needed Following services are medically necessary services: Nursing, Home Health Aide, Physical Therapy - Transfer Medications Prescriptions: Levofloxacin 750 mg PO DAILY #5 tablet PredniSONE [Prednisone] 10 mg PO DAILY #42 tab.ds.pk Home Medications: Aclidinium [place] [Tudorza Pressair] 1 puff IH BID 09/08/15 [History] Albuterol Sulfate [Proair Hfa] 2 puff IH Q4H PRN 09/08/15 [History] Budesonide/Formoterol 160/4.5 [Symbicort 160/4.5] 2 puff IH BIDR 09/08/15 [ History] Furosemide [Lasix] 40 mg PO DAILY 09/08/15 [History] Simvastatin [Zocor] 40 mg PO HS 09/08/15 [History] Aspirin 325 mg PO DAILY #60 tablet 09/19/15 [Rx] Diltiazem CD (24hr) [Cardizem CD] 360 mg PO DAILY #30 cap.er.24h 09/19/15 [Rx] Metoprolol [Lopressor] 50 mg PO BID #60 tablet 09/19/15 [Rx] Albuterol Neb [Proventil Neb] 2.5 mg IH Q4HR 07/05/16 [History] GuaiFENesin ER [Mucinex] 600 mg PO Q12H PRN 07/05/16 [History] Levofloxacin 750 mg PO DAILY #5 tablet 07/08/16 [Rx] PredniSONE [Prednisone] 10 mg PO DAILY #42 tab.ds.pk 07/08/16 [Rx] Allergies/Adverse Reactions: Allergies Penicillins Allergy (Verified 07/05/16 08:16) Rash Certification: Further, I certify that my clinical findings support that this patient is homebound (i.e. absences from home require considerable and taxing effort and are for medical reasons or quaker services or infrequently or short duration when for other reasons) because: Homebound Reason: Patient requires assistance of a person or device to safely leave home, Leaving home requires considerable and taxing effort due to condition, Severity of cardiac or pulmonary status limits activity tolerance Attestation: My signature below is to certify that this patient is under my care and that I, or nurse practitioner, or a physician's bindery assistant working with me, has a face-to -face encounter with this patient.
== END 2016-07-11 15:47 | DRG 140 ==
LOC: 2ANU 06:22 → EMEROO 06:22 → SUATTDRO 08:41 → 2ANU 08:51
PROVIDERS: ADMIT Internal Medicine; ATTEND Internal Medicine

== ENCOUNTER 2016-08-04 07:06 | Inpatient (IN) ==
[2016-08-04] MEDS ORDERED: methylPREDNISolone 125 MG/2 ML VIAL IVP ONE (07:11)
[2016-08-04] MEDS ORDERED: Albuterol 2.5 MG/3 ML NEBULIZER IH ONE (07:11)
[2016-08-04] MEDS ORDERED: Albuterol 2.5 MG/3 ML NEBULIZER ONE (07:12)
--- NOTE | 2016-08-04 07:15 | Emergency Department Note ---
Disposition Clinical Impression: Acute exacerbation of chronic obstructive airways disease Disposition: Admitted As Inpatient Condition: Undetermined Referrals: Blanche Caro CNP [Primary Care Provider] - Forms: ED Satisfaction Letter Time of Disposition: 11:22 SOB HPI - General Chief Complaint: ED Shortness of Breath/Dyspnea Stated Complaint: MARICEL Time Seen by Provider: 08/04/16 07:10 Source: patient Mode of arrival: EMS Limitations: no limitations Nursing Notes Reviewed: Yes Vital Signs Reviewed: Yes - History of Present Illness 55-year-old female with extensive history of COPD wearing home oxygen at roughly 3.5 L continuously arrives to [facility] emergency department after experiencing dyspnea over the past 2448 hrs. The patient states that she typically gets to this point has to be brought into the emergency department for further workup. She states that she does want to bother to other people so she does not take care of herself very well. The patient called EMS after having difficulty breathing this morning with an O2 sat initially by EMS of 85%. The patient's face was cyanotic. She was tachypneic and was tripoding. The patient was given 4 DuoNeb prior to arrival in the emergency department which brought her O2 sat very quickly into the upper 80s to low 90s. EMS stated that with any movement of the patient she would desaturate quickly. Upon a transition the patient from the EMS cot to the bed in the emergency department her O2 sat dropped to 80%. The patient remained tachypneic but was able to speak in 2-3 word sentences. The patient denies any chest pain, abdominal pain, focalized weakness, cough, fever, chills. The patient denies any other complaints at this time other than being dyspneic. 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 Severity: moderate, severe Consistency/Duration: constant Improves with: oxygen, rest, bronchodilators Worsens with: movement Known history of: COPD Associated symptoms: Reports: wheezing Treatment prior to arrival: oxygen, bronchodilator Cough present: No Sputum production: No - Related Data Home oxygen amount: 3 liters (3.5 L) Home Medications Medication Instructions Recorded Confirmed Aclidinium [place] [Tudorza 1 puff IH BID 09/08/15 07/05/16 Pressair] Albuterol Sulfate [Proair Hfa] 2 puff IH Q4H PRN 09/08/15 07/05/16 Budesonide/Formoterol 160/4.5 2 puff IH BIDR 09/08/15 07/05/16 [Symbicort 160/4.5] Furosemide [Lasix] 40 mg PO DAILY 09/08/15 07/05/16 Simvastatin [Zocor] 40 mg PO HS 09/08/15 07/05/16 Albuterol Neb [Proventil Neb] 2.5 mg IH Q4HR 07/05/16 07/05/16 GuaiFENesin ER [Mucinex] 600 mg PO Q12H PRN 07/05/16 07/05/16 Previous Rx's Medication Instructions Recorded Aspirin 325 mg PO DAILY #60 tablet 09/19/15 Diltiazem CD (24hr) [Cardizem CD] 360 mg PO DAILY #30 cap.er.24h 09/19/15 Metoprolol [Lopressor] 50 mg PO BID #60 tablet 09/19/15 Levofloxacin 750 mg PO DAILY #5 tablet 07/08/16 PredniSONE [Prednisone] 10 mg PO DAILY #42 tab.ds.pk 07/08/16 Allergies Allergy/AdvReac Type Severity Reaction Status Date / Time Penicillins Allergy Rash Verified 07/05/16 08:16 Review of Systems: Review of Systems Constitutional: Denies fevers, chills, HEENT: Denies headache, Respiratory: Denies cough, sputum change, hemoptysis, admits to dyspnea Cardiac: Denies chest pain, pressure, palpitations, admits to dyspnea on exertion, pedal edema Gastrointestinal: Denies abdominal pain, changes in bowel habits, vomiting, nausea, Genitourinary: Denies dysuria, change in frequency, urgency, Neurologic: Denies headaches, dizziness, syncope, focalized weakness, paraesthesias, weakness Musculoskeletal: Denies back pain, joint pain, myalgias All systems ED: reviewed and negative except as stated. Past Medical History - Past Medical History Attestation: Yes The following information was validated with the patient. Source: patient, old records reviewed Medical history: Reports: COPD, hyperlipidemia, other (CHF) Surgical history: Reports: non-contributory Psychiatric history: Reports: other - Social History Smoking Status: Unknown if ever smoked Smokeless Tobacco Status: No Alcohol use: Reports: unknown Drug use: Reports: unknown Physical Exam Physical Exam: General: Patient alert, in moderate acute respiratory distress, not lethargic HEENT: Head normal inspection, atraumatic, PERRLA, oropharynx grossly intact and normal, trachea midline, no JVD Chest: Nontraumatic, nontender, normal chest rise CV: RRR with no murmurs, rubs, gallops Respiratory: Coarse breath sounds bilaterally with bilateral wheezing, without rhonchi or rales noted. Patient is tachypneic and using accessory muscles. Abdomen: Normal inspection, Normal bowel sounds 4 quadrants, nontender to palpation : Patient deferred Extremities: Normal inspection, full range of motion, appropriate pulses, capillary refill under 2 seconds Neurological: Patient alert and oriented 3, cranial nerves II through XII grossly intact, GCS 15 Skin: Warm, intact, no rashes noted, patient is cyanotic face and the tips of her fingers bilaterally Course Course Narrative: 55-year-old female with extensive history of COPD arrives and O2 sat of 85%. She improved with for a duo nebs in route. In addition that the patient improved very quickly on BiPAP once in the emergency department. EKG does demonstrate atrial fibrillation which is noted previously on EKG from July 05, 2016. The patient denies any known history of atrial fibrillation. - Reevaluation(s) Reevaluation #1: Patient's O2 sat is currently 97% on BiPAP as well as heart rate 88 bpm. The patient feels much better. Awaiting Labs. The Patient Was Given 3 Albuterol Nebulizers As Well As Solu-Medrol. The Patient's Chest X-Ray Demonstrates Improved Markings from Previous Chest X-Ray. The patient does have blunting slightly over the bilateral costophrenic angles but is improved from previous chest x-ray. The patient is doing well on BiPAP. We will admit the patient to the hospital given her hypoxia and severity of symptoms. Patient's EKG does demonstrate atrial fibrillation which is known. Previous analysis and note reviewed the patient's medical record which does state that the patient was not a candidate for anticoagulation given her fall risk, alcohol abuse previously noted on note, and noncompliance with medications. Time: 07:45 Vital Signs Temperature 97.4 F L 08/04/16 07:13 Pulse Rate 109 08/04/16 07:13 Respiratory Rate 37 08/04/16 07:13 Blood Pressure 157/123 08/04/16 07:13 O2 Sat by Pulse Oximetry 85 L 08/04/16 07:13 Temperature 97.4 F L 08/04/16 07:13 Pulse Rate 85 08/04/16 11:00 Respiratory Rate 18 08/04/16 11:00 Blood Pressure 100/69 08/04/16 11:00 O2 Sat by Pulse Oximetry 95 08/04/16 11:00 Oxygen Delivery Oxygen Delivery Bipap Shortness of Breath/Dyspnea - MDM Narrative Medical decision making narrative: Appears to be COPD exacerbation. Patient's CT of the chest was negative. At this time given the patient's hypoxia upon arrival we will admit the patient to the hospital. Accepted by Dr. Bruno. - Medical Records Medical records reviewed: Yes I reviewed the patient's medical records. - Lab Data Lab results reviewed: Yes I reviewed the patient's lab results. Result diagrams: 08/04/16 07:31 08/04/16 07:31 Lab Results 08/04/16 08/04/16 08/04/16 Range/Units 07:31 07:31 07:31 WBC 7.3 (4.3-11.1) K/mcL RBC 4.24 (3.82-4.97) M/mcL Hgb 13.3 (11.5-15.4) g/dL Hct 42.2 (35.3-44.9) % MCV 99.5 (83.0-100.0) fL MCH 31.4 (28.0-33.3) pg MCHC 31.5 L (31.6-35.5) g/dL RDW 15.8 H (11.5-14.5) % Plt Count 230 (140-400) K/mcL MPV 9.9 (9.4-12.4) fL Seg Neutrophils % 66.0 % Band Neutrophils % 10.0 H (0-4) % Lymphocytes % 16.0 % Monocytes % 5.0 % Eosinophils % 2.0 % Metamyelocytes % 1.0 H (0) % Neutrophils # 5.6 (1.6-8.9) K/mcL Lymphocytes # 1.2 (0.6-4.6) K/mcL Monocytes # 0.4 (0.0-1.3) K/mcL Eosinophils # 0.2 (0.0-0.6) K/mcL Hyposegmented Neuts Present A (Not Present) Reactive Lymphocytes Present A (Not Present) Platelet Estimate Normal (Normal) D-Dimer (0-500) ng/mLFEU Sodium 142 (136-145) mEq/L Potassium 4.1 (3.5-4.5) mEq/L Chloride 102 (98-109) mEq/L Carbon Dioxide 32 H (19-29) mEq/L BUN 20 (7-20) mg/dL Creatinine 0.73 (0.57-1.11) mg/dL Est GFR ( Amer) > 60 (> 60) Est GFR (Non-Af Amer) > 60 (> 60) BUN/Creatinine Ratio 27 H (6-26) Glucose 135 H (70-99) mg/dL Calculated Osmolality 299 (280-300) Calcium 9.1 (8.6-10.8) mg/dL Troponin I 0.00 (0-0.03) ng/mL 08/04/16 Range/Units 07:37 WBC (4.3-11.1) K/mcL RBC (3.82-4.97) M/mcL Hgb (11.5-15.4) g/dL Hct (35.3-44.9) % MCV (83.0-100.0) fL MCH (28.0-33.3) pg MCHC (31.6-35.5) g/dL RDW (11.5-14.5) % Plt Count (140-400) K/mcL MPV (9.4-12.4) fL Seg Neutrophils % % Band Neutrophils % (0-4) % Lymphocytes % % Monocytes % % Eosinophils % % Metamyelocytes % (0) % Neutrophils # (1.6-8.9) K/mcL Lymphocytes # (0.6-4.6) K/mcL Monocytes # (0.0-1.3) K/mcL Eosinophils # (0.0-0.6) K/mcL Hyposegmented Neuts (Not Present) Reactive Lymphocytes (Not Present) Platelet Estimate (Normal) D-Dimer 794 H (0-500) ng/mLFEU Sodium (136-145) mEq/L Potassium (3.5-4.5) mEq/L Chloride (98-109) mEq/L Carbon Dioxide (19-29) mEq/L BUN (7-20) mg/dL Creatinine (0.57-1.11) mg/dL Est GFR ( Amer) (> 60) Est GFR (Non-Af Amer) (> 60) BUN/Creatinine Ratio (6-26) Glucose (70-99) mg/dL Calculated Osmolality (280-300) Calcium (8.6-10.8) mg/dL Troponin I (0-0.03) ng/mL - Radiology Data Radiology results reviewed: Yes I reviewed the patient's radiology results.
[2016-08-04 07:54] LABS: BUN/Creatinine Ratio 27 (6-26); Blood Urea Nitrogen 20 mg/dL (7-20); Calcium 9.1 mg/dL (8.6-10.8); Carbon Dioxide 32 mEq/L (19-29); Chloride 102 mEq/L (98-109); Glucose 135 mg/dL (70-99); Osmolality,Calculated 299 (280-300); Potassium 4.1 mEq/L (3.5-4.5); Sodium 142 mEq/L (136-145); eGFR For African Americans > 60 (> 60); eGFR For Non-African Americans > 60 (> 60)
[2016-08-04 07:58] LABS: Hematocrit 42.2 % (35.3-44.9); Hemoglobin 13.3 g/dL (11.5-15.4); Mean Corpuscular HGB Conc 31.5 g/dL (31.6-35.5); Mean Corpuscular Hemoglobin 31.4 pg (28.0-33.3); Mean Corpuscular Volume 99.5 fL (83.0-100.0); Mean Platelet Volume 9.9 fL (9.4-12.4); Monocytes # 0.4 K/mcL (0.0-1.3); Platelet Count 230 K/mcL (140-400); Red Blood Count 4.24 M/mcL (3.82-4.97); Red Cell Distribution Width 15.8 % (11.5-14.5)
--- NOTE | 2016-08-04 08:12 | Emergency Department Note ---
START Narrative - START START: I examined this patient and my medical decision-making was reviewed with the SUPERVISORY CBP OFFICER/PA/Advanced Practice Nurse/Resident Physician. I agree with the documented findings, disposition and treatment plan as described except to the extent set forth below. ED attending note: Patient seen with emergency medicine resident Dr. Pratt. Please see a copy of his note for details of the H&P, evaluation, management and disposition of this patient. We independently had [id number] contact with the patient Briefly: A 55-year-old by EMS history of COPD. Obese. Also CHF. Once 2 days of increasing shortness of breath. Patient was satting 84% And tachycardic. Emergent application of BiPAP in the ED patient vital signs are improving. She is tight and wheezing bilaterally. Laboratory testing pending. Admission anticipated. Triple albuterol as being administered. Provided 45 minutes of critical care services for this patient. Disposition pending
[2016-08-04] MEDS ORDERED: 0.9 % Sodium Chloride 1,000 ML IVC ONE (08:28)
[2016-08-04 08:54] LABS: Eosinophils # 0.2 K/mcL (0.0-0.6); Lymphocytes # 1.2 K/mcL (0.6-4.6); Neutrophils # 5.6 K/mcL (1.6-8.9); Platelet Estimate Normal (Normal)
[2016-08-04 08:55] LABS: Reactive Lymphocytes Present (Not Present)
--- NOTE | 2016-08-04 12:51 | Internal Med History&Physical ---
Date of Encounter: 08/04/16 Time of Encounter: 12:49 Assessment and Plan (1) Acute diastolic (congestive) heart failure Current visit: Yes Status: Acute I will start the patient only 60 mg intravenous daily 1st does now. Leigh catheter will be placed. Strict intake and output. (2) Acute respiratory failure with hypoxia Current visit: Yes Status: Acute Patient is currently on BiPAP FIO2 60% arterial blood gas will be performed now (3) Atrial fibrillation with rapid ventricular response Current visit: Yes Status: Acute Rate is better controlled after improvement of oxygenation. Continue her Cardizem. (4) Acute exacerbation of chronic obstructive airways disease Current visit: Yes Status: Acute Will start the patient on IV steroids Q3 our nebulizer treatments. I will also give the patient Levaquin for acute bronchitis. Internal Medicine - H&P: HPI Chief complaint: sob History of present illness: Ms. Mccormick is a 55 year old female with history of COPD on 3 1/2 L home oxygen presents to the emergency room today with the main complaining of shortness of breath. For the past 5 days patient has been noticing increasing shortness of breath to the point where she was short of breath rest in addition to productive cough will be yellowish sputum and increased chest leaving. Her daughter noted this morning that she is Distressed so she brought her to the emergency room. She was saturating in the 80s on arrival paramedics and ER and therefore she has been placed on BiPAP. She has been more sleepy. During my interview patients is somewhat sleepy but arousal to verbal stimuli oriented times 3 and able to obey orders. She was on 60% FI02. Patient continues to smoke however she mentioned that she had significantly cut down on alcohol drinking. Past Med Surg Social Fam HX - Past Medical History Medical history: COPD, hyperlipidemia, other (CHF) Psychiatric history: other - Past Surgical History Surgical History: non-contributory - Social History Smoking Status: Unknown if ever smoked Smokeless Tobacco Status: No Alcohol use: unknown Drug use: unknown - Family History Mother Living Status: Hx Family Cardiac Disorders: Yes (murmur, HTN) Hx Family Endocrine Disorder: Yes (Hypothyroid, DM) Father Living Status: Hx Family Respiratory Disorders: Yes (Asthma, COPD, Emphysema) Internal Medicine - H&P: Meds Aclidinium [place] [Tudorza Pressair] 1 puff IH BID 09/08/15 [History] Albuterol Sulfate [Proair Hfa] 2 puff IH Q4H PRN 09/08/15 [History] Budesonide/Formoterol 160/4.5 [Symbicort 160/4.5] 2 puff IH BIDR 09/08/15 [ History] Furosemide [Lasix] 40 mg PO DAILY 09/08/15 [History] Simvastatin [Zocor] 40 mg PO HS 09/08/15 [History] Aspirin 325 mg PO DAILY #60 tablet 09/19/15 [Rx] Diltiazem CD (24hr) [Cardizem CD] 360 mg PO DAILY #30 cap.er.24h 09/19/15 [Rx] Metoprolol [Lopressor] 50 mg PO BID #60 tablet 09/19/15 [Rx] Albuterol Neb [Proventil Neb] 2.5 mg IH Q4HR 07/05/16 [History] Allergies Penicillins Allergy (Verified 07/05/16 08:16) Rash All Systems PM: A 10-system review of systems was performed and is negative for pertinent findings except as documented above in the HPI. Review of systems: 10 POINT rview systems is negative except for HPI - Constitutional Vitals: Temp Pulse Resp BP Pulse Ox 97.4 F L 91 28 87/72 95 08/04/16 07:13 08/04/16 12:00 08/04/16 12:00 08/04/16 12:00 08/04/16 12:00 Exam: Gen.: patient is alert oriented not in distress. Cardiac: Normal S1 S2 no additional sounds or murmurs chest: DIMINISHED AIR ENTRY, CHEST WHEEZING EXPIRATORY. Bilateral basal crackles abdomen soft nontender nondistended normal bowel sounds lower extremity: lax calf muscles neuro no focal deficit Internal Med - H&P Results - Labs CBC & Chem 7: 08/04/16 07:31 08/04/16 07:31
[2016-08-04] MEDS: Ipratropium/Albuterol Neb 3 ML IH SCH ×4 (15:15→20:40)
[2016-08-04] MEDS: *HR* Heparin 5,000 UNIT/ML VIAL SQ SCH ×2 (15:48→22:48)
[2016-08-04] MEDS: Furosemide 40 MG/4 ML VIAL IVP SCH (15:48)
[2016-08-04] MEDS: Levofloxacin 750 MG/150 ML 750 MG/150 ML BAG IVPB SCH (15:48)
[2016-08-04 17:10] LABS: Bilirubin,Urine Negative (Negative); Blood,Urine Negative (Negative); Clarity,Urine Clear (Clear); Color,Urine Yellow (Yellow); Glucose,Urine (UA) Normal (Normal); Ketones,Urine Negative (Negative); Leukocyte Esterase,Urine Negative (Negative); Nitrite,Urine Negative (Negative); Protein,Urine Negative (Neg-Trace); Specific Gravity,Urine 1.026 (1.010-1.025); Urobilinogen,Urine Normal (Normal)
[2016-08-04] MEDS: methylPREDNISolone 125 MG/2 ML VIAL IVP SCH ×2 (17:22→22:49)
[2016-08-04 17:54] LABS: ABG Base Excess 8.2 mEq/L (-2.0 to 3.0); ABG HCO3 36.9 mEQ/L (21-27); ABG Oxygen Saturation 100 % (95-98); ABG PH 7.33 pH Units (7.32-7.45); ABG PO2 176 mmHg (85-104)
[2016-08-04 17:55] LABS: ABG PCO2 70 mmHg (35-45); Blood Gas FiO2 60 %
--- NOTE | 2016-08-04 18:40 | Electrocardiograph Report ---
[employer] [facility] Test Date: 2016-08-04 Pat Name: Shanda Mccormick Department: 104 Room: 2N03 Gender: F Commissions Specialist: : [id number] Requested By: Zach Pratt Order Number: [id number] Reading MD: Sana Austin DO Measurements Intervals [place] Rate: 100 P: [place]: 0 QRS: 20 QRSD: 88 T: 36 QT: 367 QTc: 424 Interpretive Statements ATRIAL FIBRILLATION WITH RAPID VENTRICULAR RESPONSE LOW QRS VOLTAGE IN PRECORDIAL LEADS SEPTAL MYOCARDIAL INFARCTION, OF INDETERMINATE AGE Electronically Signed On 08-04-2016 18:38:28 EDT by Sana Austin DO
[2016-08-04] MEDS: Budesonide/Formoterol 160/4.5 MDI IH SCH (20:40)
[2016-08-05] MEDS: Ipratropium/Albuterol Neb 3 ML IH SCH ×9 (00:55→23:55)
[2016-08-05] MEDS: methylPREDNISolone 125 MG/2 ML VIAL IVP SCH ×3 (05:44→21:32)
[2016-08-05] MEDS: *HR* Heparin 5,000 UNIT/ML VIAL SQ SCH ×3 (05:44→21:35)
[2016-08-05 06:00] LABS: Basophils % 0.3 %; Hematocrit 39.8 % (35.3-44.9); Hemoglobin 12.5 g/dL (11.5-15.4); Lymphocytes # 1.1 K/mcL (0.6-4.6); Lymphocytes % 17.6 %; Mean Corpuscular HGB Conc 31.4 g/dL (31.6-35.5); Mean Corpuscular Hemoglobin 31.6 pg (28.0-33.3); Mean Corpuscular Volume 100.5 fL (83.0-100.0); Monocytes # 0.2 K/mcL (0.0-1.3); Monocytes % 2.6 %; Neutrophils # 4.8 K/mcL (1.6-8.9); Platelet Count 227 K/mcL (140-400); Red Blood Count 3.96 M/mcL (3.82-4.97); Red Cell Distribution Width 15.5 % (11.5-14.5); Segmented Neutrophils % 78.5 %
[2016-08-05 06:22] LABS: Macrocytosis Present (Not Present); Reactive Lymphocytes Present (Not Present)
[2016-08-05 06:23] LABS: Polychromasia 1+ (Not Present)
[2016-08-05 06:24] LABS: BUN/Creatinine Ratio 23 (6-26); Blood Urea Nitrogen 16 mg/dL (7-20); Calcium 8.7 mg/dL (8.6-10.8); Carbon Dioxide 30 mEq/L (19-29); Chloride 102 mEq/L (98-109); Glucose 173 mg/dL (70-99); Magnesium 1.8 mg/dL (1.6-2.6); Osmolality,Calculated 293 (280-300); Potassium 4.3 mEq/L (3.5-4.5); Sodium 139 mEq/L (136-145); eGFR For African Americans > 60 (> 60); eGFR For Non-African Americans > 60 (> 60)
[2016-08-05] MEDS: Budesonide/Formoterol 160/4.5 MDI IH SCH (07:50)
[2016-08-05] MEDS ORDERED: Famotidine 20 MG/2 ML VIAL IVP SCH (09:00)
[2016-08-05] MEDS: Diltiazem CD (24hr) 180 MG CAPSULE PO SCH (09:52)
[2016-08-05] MEDS: Aspirin 325 MG TABLET PO SCH (09:52)
[2016-08-05] MEDS: Levofloxacin 750 MG/150 ML 750 MG/150 ML BAG IVPB SCH (09:52)
[2016-08-05] MEDS: Furosemide 40 MG/4 ML VIAL IVP SCH (09:52)
--- NOTE | 2016-08-05 12:59 | Internal Med Progress Note ---
Date of Encounter: 08/04/16 Time of Encounter: 12:57 - Assessment and plan (1) Acute and chronic respiratory failure Current Visit: No Status: Acute Assessment and plan: Likely multifactorial-secondary to COPD exacerbation combined with CHF decompensation Pt improved clinically with aggressive Diuretic and steroid therapy Continue IV steroids and bronchodilator support IV diuresis monitor O2 sat, goal O2 sat: 89-92% monitor daily weights, strict I/Os fluid restricted diet bipap as needed Serial ABG as needed IV abx f/u 2D echo Qualifiers: Respiratory failure complication: hypoxia and hypercapnia Qualified Code(s) : J96.21 - Acute and chronic respiratory failure with hypoxia; J96.22 - Acute and chronic respiratory failure with hypercapnia (2) Acute exacerbation of chronic obstructive airways disease Current Visit: Yes Status: Acute Assessment and plan: as listed above (3) Acute diastolic (congestive) heart failure Current Visit: Yes Status: Acute Assessment and plan: as listed above (4) Atrial fibrillation with rapid ventricular response Current Visit: Yes Status: Acute Assessment and plan: Rate controlled with Cardizem, will continue Patient reports of never being started on any anticoagulation (5) DVT prophylaxis Current Visit: Yes Status: Acute Assessment and plan: Heparin SQ (6) Morbid obesity with BMI of 60.0-69.9, adult Current Visit: Yes Status: Chronic - Subjective Interval history: Pt seen and examined at bedside. Resting in bed, currently saturating well on nasal cannula. Reports of feeling better since admission but still not at baseline. States she has episodes of severe cough with severe respiratory distress. Denies any such episodes since hospitalization but states she does feel that she is having difficulty cough up the mucus. Denies any SOB or chest pain at rest. - Constitutional Vitals: Temp Pulse Resp BP Pulse Ox 97.9 F 86 18 117/82 100 08/05/16 11:29 08/05/16 12:20 08/05/16 11:46 08/05/16 11:29 08/05/16 11:46 General appearance: Present: A&O X 3, morbidly obese, no acute distress, answers questions appropriately - Head Head exam: Present: atraumatic, normocephalic - Eye Eye exam: Present: normal appearance, conjuntiva pink, sclera anicteric - Respiratory Respiratory exam: Absent: respiratory distress, wheezes (bibasilar crackles) - Cardiovascular Cardiovascular exam: Present: RRR, +S1, +S2. Absent: diastolic murmur, gallop, rubs, systolic murmur - GI/Abdominal GI/Abdominal exam: Present: normal bowel sounds, soft, no peritoneal signs. Absent: distended, tenderness - Extremities Exam Extremities exam: Present: warm, radial pulses palpable and symetrical. Absent : calf tenderness (bilateral lower extremity edema), tenderness - Neurological Exam Neurological exam: Present: alert, oriented X3 - Psychiatric Psychiatric exam: Present: normal affect, normal mood Internal Medicine: Result - Labs CBC & Chem 7: 08/05/16 05:33 08/05/16 05:33 Labs: Short CBC 08/05/16 Range/Units 05:33 WBC 6.1 (4.3-11.1) K/mcL Hgb 12.5 (11.5-15.4) g/dL Hct 39.8 (35.3-44.9) % Plt Count 227 (140-400) K/mcL Neutrophils # 4.8 (1.6-8.9) K/mcL BMP 08/05/16 05:33 Sodium 139 Potassium 4.3 Chloride 102 Carbon Dioxide 30 H BUN 16 Creatinine 0.69 Glucose 173 H Calcium 8.7 Cardiac Enzymes 08/04/16 Range/Units 16:30 Troponin I 0.00 (0-0.03) ng/mL Urine 08/04/16 Range/Units 17:06 Urine Color Yellow (Yellow) Urine Clarity Clear (Clear) Urine pH 6.0 (5.0-8.0) pH Units Ur Specific [place] 1.026 H (1.010-1.025) Urine Protein Negative (Neg-Trace) mg/dL Urine Glucose (UA) Normal (Normal) mg/dL - ABG Interpretation ABG results: ABG ABG pH 7.33 pH Units (7.32-7.45) 08/04/16 17:44 ABG pCO2 70 mmHg (35-45) H* 08/04/16 17:44 ABG pO2 176 mmHg (85-104) H 08/04/16 17:44 ABG O2 Saturation 100 % (95-98) H 08/04/16 17:44 PT/INR, D-dimer D-Dimer 794 ng/mLFEU (0-500) H 08/04/16 07:37 Consult Discharge Plan - Plan Referrals: Blanche Caro, TECHNICAL SALES ADVISOR [Primary Care Provider] - (SENT WEB REQUEST ON 08-05-16 @ 3112)
[2016-08-05] MEDS ORDERED: D5% in Water 1,000 ML IVC PRN (15:26)
[2016-08-05] MEDS ORDERED: *HR* Dextrose 50 % in Water (Syg) 50 ML SYRINGE IVP PRN (15:26)
[2016-08-05] MEDS ORDERED: Dextrose Gel 15 GM PO PRN ×2 (15:26)
[2016-08-05] MEDS: Insulin LISPRO 300 UNITS/3 ML VIAL SQ SCH ×2 (16:25→21:33)
[2016-08-05] MEDS: Nystatin POWDER 30 GM BOTTLE TP SCH ×2 (16:25→21:34)
[2016-08-05] MEDS ORDERED: Perflutren Lipid Microsphere 1.3 ML in 0.9 % Sodium Chloride 8.7 ML IVP ONE (17:51)
[2016-08-05] MEDS: Famotidine 20 MG/2 ML VIAL IVP SCH (21:34)
[2016-08-06] MEDS: Ipratropium/Albuterol Neb 3 ML IH SCH ×8 (04:35→23:03)
[2016-08-06] MEDS: *HR* Heparin 5,000 UNIT/ML VIAL SQ SCH ×3 (05:56→20:40)
[2016-08-06] MEDS: methylPREDNISolone 125 MG/2 ML VIAL IVP SCH ×2 (05:56→17:36)
[2016-08-06 07:33] LABS: Basophils % 0.2 %; Eosinophils % 0.4 %; Hematocrit 39.1 % (35.3-44.9); Hemoglobin 11.9 g/dL (11.5-15.4); Immature Granulocytes % 1.5 % (0-4); Lymphocytes # 0.9 K/mcL (0.6-4.6); Lymphocytes % 8.7 %; Mean Corpuscular HGB Conc 30.4 g/dL (31.6-35.5); Mean Corpuscular Hemoglobin 30.7 pg (28.0-33.3); Mean Corpuscular Volume 100.8 fL (83.0-100.0); Mean Platelet Volume 10.4 fL (9.4-12.4); Monocytes # 0.4 K/mcL (0.0-1.3); Monocytes % 3.5 %; Neutrophils # 8.6 K/mcL (1.6-8.9); Platelet Count 246 K/mcL (140-400); Red Blood Count 3.88 M/mcL (3.82-4.97); Red Cell Distribution Width 15.6 % (11.5-14.5); Segmented Neutrophils % 85.7 %
[2016-08-06 07:39] LABS: BUN/Creatinine Ratio 30 (6-26); Blood Urea Nitrogen 24 mg/dL (7-20); Calcium 9.1 mg/dL (8.6-10.8); Carbon Dioxide 29 mEq/L (19-29); Chloride 102 mEq/L (98-109); Glucose 158 mg/dL (70-99); Magnesium 2.1 mg/dL (1.6-2.6); Osmolality,Calculated 299 (280-300); Phosphorous 3.9 mg/dL (2.3-4.7); Sodium 141 mEq/L (136-145); eGFR For African Americans > 60 (> 60); eGFR For Non-African Americans > 60 (> 60)
[2016-08-06 07:44] LABS: Potassium 4.8 mEq/L (3.5-4.5)
[2016-08-06] MEDS: Famotidine 20 MG/2 ML VIAL IVP SCH ×2 (09:02→20:35)
[2016-08-06] MEDS: Aspirin 325 MG TABLET PO SCH (09:02)
[2016-08-06] MEDS: Diltiazem CD (24hr) 180 MG CAPSULE PO SCH (09:03)
[2016-08-06] MEDS: Levofloxacin 750 MG/150 ML 750 MG/150 ML BAG IVPB SCH (09:03)
[2016-08-06] MEDS: Furosemide 40 MG/4 ML VIAL IVP SCH (09:03)
[2016-08-06] MEDS: Nystatin POWDER 30 GM BOTTLE TP SCH ×3 (09:04→20:43)
[2016-08-06] MEDS: Insulin LISPRO 300 UNITS/3 ML VIAL SQ SCH ×4 (09:05→20:43)
[2016-08-06 09:30] LABS: Platelet Estimate Normal (Normal)
--- NOTE | 2016-08-06 09:57 | Internal Med Progress Note ---
Date of Encounter: 08/06/16 Time of Encounter: 09:30 - Assessment and plan (1) Acute and chronic respiratory failure Current Visit: No Status: Acute Assessment and plan: Likely multifactorial-secondary to COPD exacerbation combined with CHF decompensation Pt improved clinically with aggressive Diuretic and steroid therapy Continue IV steroids and bronchodilator support IV diuresis monitor O2 sat, goal O2 sat: 89-92% monitor daily weights, strict I/Os fluid restricted diet bipap as needed Serial ABG as needed IV abx 2D echo done-awaiting report Qualifiers: Respiratory failure complication: hypoxia and hypercapnia Qualified Code(s) : J96.21 - Acute and chronic respiratory failure with hypoxia; J96.22 - Acute and chronic respiratory failure with hypercapnia (2) Acute exacerbation of chronic obstructive airways disease Current Visit: Yes Status: Acute Assessment and plan: as listed above (3) Acute diastolic (congestive) heart failure Current Visit: Yes Status: Acute Assessment and plan: as listed above (4) Atrial fibrillation with rapid ventricular response Current Visit: Yes Status: Acute Assessment and plan: Rate controlled with Cardizem, will continue On asa for anticoagulation (5) DVT prophylaxis Current Visit: Yes Status: Acute Assessment and plan: Heparin SQ (6) Morbid obesity with BMI of 60.0-69.9, adult Current Visit: Yes Status: Chronic - Subjective Interval history: Pt seen and examined at bedside. Resting in bed, currently saturating well on nasal cannula. Reports of feeling better compared to previous day. Patient was evaluated by Physical therapy however patient refused and does not want any further physical therapy evaluation or home health services at this time. - Constitutional Vitals: Temp Pulse Resp BP Pulse Ox 98.8 F 111 16 120/91 96 08/06/16 07:41 08/06/16 07:41 08/06/16 07:44 08/06/16 07:44 08/06/16 07:44 General appearance: Present: A&O X 3, morbidly obese, no acute distress, answers questions appropriately - Head Head exam: Present: atraumatic, normocephalic - Eye Eye exam: Present: conjuntiva pink, sclera anicteric - Respiratory Respiratory exam: Present: wheezes (mild bilateraly expiratory wheezing). Absent: respiratory distress - Cardiovascular Cardiovascular exam: Present: RRR, +S1, +S2. Absent: diastolic murmur, gallop, rubs, systolic murmur - GI/Abdominal GI/Abdominal exam: Present: normal bowel sounds, soft. Absent: tenderness - Extremities Exam Extremities exam: Present: pedal edema, warm, radial pulses palpable and symetrical. Absent: calf tenderness - Neurological Exam Neurological exam: Present: oriented X3 - Psychiatric Psychiatric exam: Present: normal affect, normal mood Internal Medicine: Result - Labs CBC & Chem 7: 08/06/16 06:11 08/06/16 06:11 Labs: Short CBC 08/06/16 Range/Units 06:11 WBC 10.0 D (4.3-11.1) K/mcL Hgb 11.9 (11.5-15.4) g/dL Hct 39.1 (35.3-44.9) % Plt Count 246 (140-400) K/mcL Neutrophils # 8.6 (1.6-8.9) K/mcL BMP 08/06/16 06:11 Sodium 141 Potassium 4.8 H Chloride 102 Carbon Dioxide 29 BUN 24 H Creatinine 0.79 Glucose 158 H Calcium 9.1 - ABG Interpretation ABG results: ABG ABG pH 7.33 pH Units (7.32-7.45) 08/04/16 17:44 ABG pCO2 70 mmHg (35-45) H* 08/04/16 17:44 ABG pO2 176 mmHg (85-104) H 08/04/16 17:44 ABG O2 Saturation 100 % (95-98) H 08/04/16 17:44 PT/INR, D-dimer D-Dimer 794 ng/mLFEU (0-500) H 08/04/16 07:37 Consult Discharge Plan - Plan Referrals: Blanche Caro, STOCK CAR DRIVER [Primary Care Provider] - (SENT WEB REQUEST ON 08-05-16 @ 0495)
--- NOTE | 2016-08-06 11:09 | ECHO - Doppler Report ---
Echo with Imaging Enhancement Agent Name: Shanda Mccormick Date of Study: 08/05/2016 Date: 1960 Ht: 67.0 in Medical Record#: [id number] Age: 55 Wt: 403.0 lb Gender: Female BSA: 2.72 Order #: [id number] Location: [facility] Room #: 2N3 Reading Physician: Ranjana Gifford DO Pricing Strategist: Janett Levy RVT Ordering Physician: Francesca Xavier MD Primary Physician: Blanche Caro CNP Indications: Congestive heart failure, LVEF Impressions: LVEF 65-70%. Normal left ventricular size and systolic function. Definity was given. Indeterminate left venticular diastoic function Mildly dilated RV with normal function. Mild-moderate mitral regurgitation. Moderate tricuspid regurgitation. Severe pulmonary hypertension. Estimated RVSP was 60 mmHg. IVC is dilated. Left Ventricular Wall Motion: Rest Echo Findings All wall segments showed normal motion. Findings: Study Quality * Technically sub-optimal due to body habitus. Left Ventricle * Normal LV chamber size, wall thickness and function. * Indeterminate diastolic function. * LVEF 65-70%. * Definity echo contrast was used. Left Atrium * Normal left atrial size. Aorta * Normally sized aortic root. ECG Findings * Atrial fibrillation. Aortic Valve * No aortic regurgitation. * Aortic valve not well visualized. * No aortic stenosis. Mitral Valve * Normal mitral valve structure. * No mitral stenosis. * Mild-moderate mitral regurgitation. Tricuspid Valve * Tricuspid valve not well visualized. * Moderate tricuspid regurgitation. * Estimated RA pressure is 15 mmHg. * Estimated RVSP is 60 mmHg. * Severe pulmonary hypertension. Pulmonic Valve * Pulmonic valve is not well visualized. * No pulmonic stenosis. * Trace pulmonic regurgitation. Pulmonary Artery * Pulmonary artery not well visualized. Right Ventricle * Mildly dilated with normal function. Right Atrium * Normal right atrial size. Interatrial Septum * No evidence of PFO by color Doppler. IVC * The IVC is dilated. * < 50% respiratory change. Pericardium * There is no pericardial effusion present. History History of Smoking Years 32 Packs 1 09-06-2015 a Previous Echo was performed. Contrast: Definity 1.3 ml in 8.7 ml of saline 2 ml. Measurements: BP: 95/ 73 2D Normal Values IVSd: 1.10 cm 0.6 - 1.0 cm LVIDd: 6.00 cm 3.7 - 5.6 cm LVPWd: .90 cm 0.6 - 1.1 cm LVIDs: 4.80 cm 1.5 - 3.6 cm AO: 2.60 cm < 4.0 cm %FS: 23.80 cm >25 % LA volume: Mitral Valve Peak E:1.07 m/sec Peak E' Lat Keith:14.1 cm/s Peak E' Med Keith:10.7 cm/s E/E' Lat Ratio:7.6 E/E' Med Ratio:10 Tricuspid Valve TV Regurg Peak Grad: 45.00mmHg TV Regurg Peak Keith: 3.36m/sec Updated by Ranjana Gifford on 08/06/2016 11:03:16 AM electronically signed on 08/06/2016 11:05:39 AM with status of Final Wall Motion [place]: 1=Normal, 2=Hypokinesis, 3=Akinesis, 4=Dyskinesis, 5=Aneurysmal, 6=Hyperkinetic, X=Not Visualized (Blank)=Missing
[2016-08-06] MEDS: Budesonide/Formoterol 160/4.5 MDI IH SCH (19:59)
[2016-08-07 03:31] LABS: Basophils % 0.2 %; Hematocrit 38.8 % (35.3-44.9); Hemoglobin 12.2 g/dL (11.5-15.4); Immature Granulocytes % 1.9 % (0-4); Lymphocytes # 1.1 K/mcL (0.6-4.6); Mean Corpuscular HGB Conc 31.4 g/dL (31.6-35.5); Mean Corpuscular Hemoglobin 31.4 pg (28.0-33.3); Mean Platelet Volume 10.2 fL (9.4-12.4); Monocytes # 0.3 K/mcL (0.0-1.3); Monocytes % 3.2 %; Platelet Count 289 K/mcL (140-400); Red Blood Count 3.88 M/mcL (3.82-4.97); Red Cell Distribution Width 15.7 % (11.5-14.5); Segmented Neutrophils % 84.7 %
[2016-08-07 03:46] LABS: BUN/Creatinine Ratio 34 (6-26); Blood Urea Nitrogen 28 mg/dL (7-20); Calcium 9.1 mg/dL (8.6-10.8); Carbon Dioxide 30 mEq/L (19-29); Chloride 101 mEq/L (98-109); Glucose 176 mg/dL (70-99); Magnesium 2.1 mg/dL (1.6-2.6); Osmolality,Calculated 300 (280-300); Phosphorous 4.4 mg/dL (2.3-4.7); Potassium 4.8 mEq/L (3.5-4.5); Sodium 140 mEq/L (136-145); eGFR For African Americans > 60 (> 60); eGFR For Non-African Americans > 60 (> 60)
[2016-08-07] MEDS: Ipratropium/Albuterol Neb 3 ML IH SCH ×5 (04:07→20:33)
[2016-08-07] MEDS: methylPREDNISolone 125 MG/2 ML VIAL IVP SCH ×2 (06:39→17:39)
[2016-08-07] MEDS: *HR* Heparin 5,000 UNIT/ML VIAL SQ SCH ×3 (06:39→21:56)
[2016-08-07] MEDS: Budesonide/Formoterol 160/4.5 MDI IH SCH ×2 (08:26→20:34)
[2016-08-07] MEDS: Insulin LISPRO 300 UNITS/3 ML VIAL SQ SCH ×4 (09:18→21:54)
[2016-08-07] MEDS: Diltiazem CD (24hr) 180 MG CAPSULE PO SCH (09:19)
[2016-08-07] MEDS: Famotidine 20 MG/2 ML VIAL IVP SCH ×2 (09:19→21:57)
[2016-08-07] MEDS: Furosemide 40 MG/4 ML VIAL IVP SCH (09:19)
[2016-08-07] MEDS: Aspirin 325 MG TABLET PO SCH (09:20)
[2016-08-07] MEDS: Levofloxacin 750 MG/150 ML 750 MG/150 ML BAG IVPB SCH (09:20)
--- NOTE | 2016-08-07 09:20 | Internal Med Progress Note ---
Date of Encounter: 08/07/16 Time of Encounter: 09:17 - Assessment and plan (1) Acute and chronic respiratory failure Current Visit: No Status: Acute Assessment and plan: Likely multifactorial-secondary to COPD exacerbation combined with CHF decompensation Pt improved clinically with aggressive Diuretic and steroid therapy Continue IV steroids and bronchodilator support IV diuresis monitor O2 sat, goal O2 sat: 89-92% monitor daily weights, strict I/Os fluid restricted diet bipap as needed Serial ABG as needed IV abx 2D echo: LVEF 65-70%, normal LV size and systolic function. Indeterminate LV diastolic function. Mild to moderate Mitral regurgitation, moderate-TR, severe pulmonary hypertension Likely d/c in am Qualifiers: Respiratory failure complication: hypoxia and hypercapnia Qualified Code(s) : J96.21 - Acute and chronic respiratory failure with hypoxia; J96.22 - Acute and chronic respiratory failure with hypercapnia (2) Acute exacerbation of chronic obstructive airways disease Current Visit: Yes Status: Acute Assessment and plan: as listed above (3) Acute diastolic (congestive) heart failure Current Visit: Yes Status: Acute Assessment and plan: as listed above (4) Atrial fibrillation with rapid ventricular response Current Visit: Yes Status: Acute Assessment and plan: Rate controlled with Cardizem, will continue On asa for anticoagulation (5) DVT prophylaxis Current Visit: Yes Status: Acute Assessment and plan: Heparin SQ (6) Morbid obesity with BMI of 60.0-69.9, adult Current Visit: Yes Status: Chronic - Subjective Interval history: Pt seen and examined at bedside. Resting in bed, currently saturating well on nasal cannula. Reports of feeling better compared to previous day. States she feels better but still not at baseline. Reports of having bed bugs infestation at home, which her daughter is taking care of. Offered marine services technician, but patient declining at this time. Only requesting a ride upon discharge. Patient was evaluated by Physical therapy however patient refused and does not want any further physical therapy evaluation or home health services at this time. - Constitutional Vitals: Temp Pulse Resp BP Pulse Ox 97.8 F 84 16 122/94 93 08/07/16 07:06 08/07/16 07:06 08/07/16 08:29 08/07/16 07:06 08/07/16 08:29 General appearance: Present: A&O X 3, morbidly obese, no acute distress, answers questions appropriately - Head Head exam: Present: atraumatic, normocephalic - Eye Eye exam: Present: normal appearance, conjuntiva pink, sclera anicteric - Respiratory Respiratory exam: Absent: respiratory distress, wheezes (bibasilar crackles) - Cardiovascular Cardiovascular exam: Present: RRR, +S1, +S2. Absent: diastolic murmur, gallop, rubs, systolic murmur - GI/Abdominal GI/Abdominal exam: Present: normal bowel sounds, soft, no peritoneal signs. Absent: distended, tenderness - Extremities Exam Extremities exam: Present: pedal edema, warm, radial pulses palpable and symetrical. Absent: calf tenderness - Neurological Exam Neurological exam: Present: alert, oriented X3 - Psychiatric Psychiatric exam: Present: normal affect, normal mood Internal Medicine: Result - Labs CBC & Chem 7: 08/07/16 02:26 08/07/16 02:35 Labs: Short CBC 08/06/16 08/07/16 Range/Units 06:11 02:26 WBC 10.0 D 10.7 (4.3-11.1) K/mcL Hgb 11.9 12.2 (11.5-15.4) g/dL Hct 39.1 38.8 (35.3-44.9) % Plt Count 246 289 (140-400) K/mcL Neutrophils # 8.6 9.0 H (1.6-8.9) K/mcL BMP 08/07/16 02:35 Sodium 140 Potassium 4.8 H Chloride 101 Carbon Dioxide 30 H BUN 28 H Creatinine 0.82 Glucose 176 H Calcium 9.1 - ABG Interpretation ABG results: ABG ABG pH 7.33 pH Units (7.32-7.45) 08/04/16 17:44 ABG pCO2 70 mmHg (35-45) H* 08/04/16 17:44 ABG pO2 176 mmHg (85-104) H 08/04/16 17:44 ABG O2 Saturation 100 % (95-98) H 08/04/16 17:44 PT/INR, D-dimer D-Dimer 794 ng/mLFEU (0-500) H 08/04/16 07:37 Consult Discharge Plan - Plan Referrals: Blanche Caro, [employer] ROUND LOGGER [Primary Care Provider] - (SENT WEB REQUEST ON 08-05-16 @ 1946)
[2016-08-07] MEDS: Nystatin POWDER 30 GM BOTTLE TP SCH ×3 (09:21→22:12)
[2016-08-08] MEDS: Ipratropium/Albuterol Neb 3 ML IH SCH ×4 (01:14→11:48)
[2016-08-08 03:39] LABS: Basophils # 0.1 K/mcL (0.0-0.2); Basophils % 0.5 %; Hemoglobin 12.5 g/dL (11.5-15.4); Immature Granulocytes % 3.3 % (0-4); Mean Corpuscular HGB Conc 32.1 g/dL (31.6-35.5); Mean Corpuscular Hemoglobin 31.8 pg (28.0-33.3); Mean Corpuscular Volume 99.2 fL (83.0-100.0); Mean Platelet Volume 9.9 fL (9.4-12.4); Monocytes # 0.6 K/mcL (0.0-1.3); Monocytes % 5.4 %; Neutrophils # 9.1 K/mcL (1.6-8.9); Platelet Count 289 K/mcL (140-400); Red Blood Count 3.93 M/mcL (3.82-4.97); Red Cell Distribution Width 15.5 % (11.5-14.5); Segmented Neutrophils % 81.8 %
[2016-08-08 03:56] LABS: BUN/Creatinine Ratio 36 (6-26); Blood Urea Nitrogen 29 mg/dL (7-20); Calcium 9.3 mg/dL (8.6-10.8); Carbon Dioxide 32 mEq/L (19-29); Chloride 102 mEq/L (98-109); Glucose 179 mg/dL (70-99); Magnesium 2.4 mg/dL (1.6-2.6); Osmolality,Calculated 302 (280-300); Phosphorous 4.2 mg/dL (2.3-4.7); Sodium 141 mEq/L (136-145); eGFR For African Americans > 60 (> 60); eGFR For Non-African Americans > 60 (> 60)
[2016-08-08] MEDS: *HR* Heparin 5,000 UNIT/ML VIAL SQ SCH (05:46)
[2016-08-08] MEDS: methylPREDNISolone 125 MG/2 ML VIAL IVP SCH (05:46)
[2016-08-08 07:26] VITALS: BP 108/89
[2016-08-08] MEDS: Furosemide 40 MG/4 ML VIAL IVP SCH (08:17)
[2016-08-08] MEDS: Famotidine 20 MG/2 ML VIAL IVP SCH (08:17)
[2016-08-08] MEDS: Diltiazem CD (24hr) 180 MG CAPSULE PO SCH (08:17)
[2016-08-08] MEDS: Aspirin 325 MG TABLET PO SCH (08:17)
[2016-08-08] MEDS: Levofloxacin 750 MG/150 ML 750 MG/150 ML BAG IVPB SCH (08:18)
[2016-08-08] MEDS: Nystatin POWDER 30 GM BOTTLE TP SCH (08:18)
[2016-08-08] MEDS: Insulin LISPRO 300 UNITS/3 ML VIAL SQ SCH ×2 (08:19→12:05)
[2016-08-08] MEDS: Budesonide/Formoterol 160/4.5 MDI IH SCH (08:52)
--- NOTE | 2016-08-08 10:15 | Discharge Summary ---
Date of Encounter: 08/08/16 Time of Encounter: 09:00 - Discharge Diagnosis (1) Acute and chronic respiratory failure Priority: Primary Status: Acute Qualifiers: Respiratory failure complication: hypoxia and hypercapnia Qualified Code(s) : J96.21 - Acute and chronic respiratory failure with hypoxia; J96.22 - Acute and chronic respiratory failure with hypercapnia (2) Acute exacerbation of chronic obstructive airways disease Priority: Primary Status: Acute (3) Acute diastolic (congestive) heart failure Priority: Primary Status: Acute (4) Atrial fibrillation with rapid ventricular response Priority: Secondary Status: Acute (5) DVT prophylaxis Priority: Secondary Status: Acute (6) Morbid obesity with BMI of 60.0-69.9, adult Priority: Secondary Status: Chronic - Discharge Medications Prescriptions: Furosemide [Lasix] 40 mg PO BID #20 tablet PredniSONE 40 mg PO DAILY #7 tablet Home Medications: Aclidinium [place] [Tudorza Pressair] 1 puff IH BID 09/08/15 [History] Albuterol Sulfate [Proair Hfa] 2 puff IH Q4H PRN 09/08/15 [History] Budesonide/Formoterol 160/4.5 [Symbicort 160/4.5] 2 puff IH BIDR 09/08/15 [ History] Simvastatin [Zocor] 40 mg PO HS 09/08/15 [History] Aspirin 325 mg PO DAILY #60 tablet 09/19/15 [Rx] Diltiazem CD (24hr) [Cardizem CD] 360 mg PO DAILY #30 cap.er.24h 09/19/15 [Rx] Metoprolol [Lopressor] 50 mg PO BID #60 tablet 09/19/15 [Rx] Albuterol Neb [Proventil Neb] 2.5 mg IH Q4HR 07/05/16 [History] Furosemide [Lasix] 40 mg PO BID #20 tablet 08/08/16 [Rx] PredniSONE 40 mg PO DAILY #7 tablet 08/08/16 [Rx] Allergies/Adverse Reactions: Allergies Penicillins Allergy (Verified 07/05/16 08:16) Rash Procedures/tests Complete & Pending: Procedures Performed prior 72 hours Category Date Time Status EV echocardiogram w enhance Routine Y 08/05/16 13:06 Completed Date of admission: 08/04/16 12:48 Primary care physician: Blanche Caro CNP Discharging clinician: Francesca Xavier Anticipated date of discharge: 08/08/16 - Patient Status Disposition: Home, Self-Care Condition: Good Functional capacity at discharge: uses cane/walker Overall status at discharge: patient is back to baseline - Discharge Instructions Follow Up With: Walter Interiano MD [Partnered Physician] - 09/08/16 2:00 pm Blanche Caro CNP [Primary Care Provider] - 08/12/16 9:40 am () Additional Instructions: Please follow up with your primary care physician within one week after your discharge from the hospital. Please follow up with your security incident response specialist within one to two weeks after your discharge from the hospital. Please continue to take oral Prednisone as prescribed. Your home dose of Lasix has been increased to 40mg twice a day, please inform your primary care physician of this change. Please resume all your home medications as prescribed by your primary care physician. Please continue to use Oxygen therapy continuously. - Diet and Activity Activity: resume usual activities as tolerated, wear oxygen at all times Diet: low salt diet Hospital course: Ms. Mccormick is a 55 year old female with PMH of COPD on LTOT, CHF, HLD, Afib, morbid obesity who was admitted for management of respiratory failure secondary to COPD exacerbation and CHF decompensation. She was started on systemic steroids, IV diuretic therapy, IV abx, and bipap support to which she responded well. She was also evaluated by physical therapy but refused further consultation or outpatient services. She was also noted to have bed bugs infestation at home but refused any social media assistant assistance. At this time she is hemodynamically stable, finished 5 days of IV abx, and respiratory status back to baseline. She will be discharged to home with oral steroids and follow up with PCP and security incident response specialist. Patient demonstrates understanding of her diagnosis and agrees with the discharge care plan. - Time Spent with Patient Total time spent providing and/or coordinating discharge services: Greater than 30 minutes - Constitutional Vitals: Temp Pulse Resp BP Pulse Ox 97.9 F 67 22 108/89 92 08/08/16 07:17 08/08/16 07:08/08/16 08:55 08/08/16 07:08/08/16 08:55 General appearance: Present: A&O X 3, morbidly obese, no acute distress, answers questions appropriately - Head Head exam: Present: atraumatic, normocephalic - Eye Eye exam: Present: normal appearance, conjuntiva pink, sclera anicteric - Respiratory Respiratory exam: Present: CTAB. Absent: respiratory distress, wheezes - Cardiovascular Cardiovascular exam: Present: RRR, +S1, +S2. Absent: diastolic murmur, gallop, rubs, systolic murmur - GI/Abdominal GI/Abdominal exam: Present: normal bowel sounds, soft, no peritoneal signs. Absent: distended, tenderness - Extremities Exam Extremities exam: Present: pedal edema, warm, radial pulses palpable and symetrical. Absent: calf tenderness, tenderness - Neurological Exam Neurological exam: Present: alert, oriented X3 - Psychiatric Psychiatric exam: Present: normal affect, normal mood
[2016-08-08 11:31] LABS: CK-MB (CK isoenzymes) 0 % (0-4); CK-MM (CK-isoenzymes) 100 % (96-100)
[2016-08-08] MEDS ORDERED: Famotidine 20 MG TABLET PO SCH (21:00)
[2016-08-09 07:16] LABS: CK Total (Ck Isoenzymes) 32 U/L (20-180); CK-BB (CK isoenzymes) 0 % (0-0)
== END 2016-08-08 12:53 | disposition home or self-care (01) | DRG 194 ==
LOC: EMEROO 07:06 → 2NENU 07:06 → SUATTDRO 12:48 → 2NNU 13:37
PROVIDERS: ADMIT Hospitalist; ATTEND Internal Medicine

== ENCOUNTER 2016-09-03 22:31 | Inpatient (IN) ==
[2016-09-03] MEDS ORDERED: Ipratropium/Albuterol Neb 3 ML IH ONE (22:57)
[2016-09-03] MEDS ORDERED: methylPREDNISolone 125 MG/2 ML VIAL IVP ONE (22:57)
[2016-09-03] MEDS ORDERED: Ipratropium/Albuterol Neb 3 ML ONE (22:58)
[2016-09-03] MEDS ORDERED: 0.9 % Sodium Chloride 500 ML IVC ONE (23:00)
--- NOTE | 2016-09-03 23:09 | Emergency Department Note ---
Disposition Clinical Impression: COPD (chronic obstructive pulmonary disease) Qualifiers: COPD type: unspecified COPD Qualified Code(s): J44.9 - Chronic obstructive pulmonary disease, unspecified Disposition: Admitted As Inpatient Condition: Fair SOB HPI - General Chief Complaint: ED Shortness of Breath/Dyspnea Stated Complaint: SOB Time Seen by Provider: 09/03/16 22:57 Source: patient, EMS Mode of arrival: EMS Limitations: no limitations Nursing Notes Reviewed: Yes Vital Signs Reviewed: Yes - History of Present Illness 55 female history of COPD, diabetes presents for evaluation of shortness of breath. Patient states shortness of breath started approximately 3 or 4 days ago. Notes recent hospitalization and admission over a month ago. Patient's typical and 3/2 L home oxygen. Patient has had a cough. No fevers. No chest pain. Patient has been using her home aerosols as directed without significant relief. No nausea or vomiting. No other symptoms. Patient was hypoxic with saturations in the 70s upon EMS arrival. Improved with 15L NR. Pt Subjective Complaint: shortness of breath, cough Onset (ago): day(s) - Related Data Home Medications Medication Instructions Recorded Confirmed Aclidinium Curlew [Tudorza 1 puff IH BID 09/08/15 09/04/16 Pressair] Albuterol Sulfate [Proair Hfa] 2 puff IH Q4H PRN 09/08/15 09/04/16 Budesonide/Formoterol 160/4.5 2 puff IH BIDR 09/08/15 09/04/16 [Symbicort 160/4.5] Simvastatin [Zocor] 40 mg PO HS 09/08/15 09/04/16 Albuterol Neb [Proventil Neb] 2.5 mg IH Q4HR 07/05/16 09/04/16 Previous Rx's Medication Instructions Recorded Aspirin 325 mg PO DAILY #60 tablet 09/19/15 Diltiazem CD (24hr) [Cardizem CD] 360 mg PO DAILY #30 cap.er.24h 09/19/15 Metoprolol [Lopressor] 50 mg PO BID #60 tablet 09/19/15 Furosemide [Lasix] 40 mg PO BID #20 tablet 08/08/16 Allergies Allergy/AdvReac Type Severity Reaction Status Date / Time Penicillins Allergy Rash Verified 09/03/16 22:33 All systems ED: reviewed and negative except as stated. Constitutional: Reports: as per HPI. Denies: fever Eyes: Reports: as per HPI ENT ED: Reports: as per HPI Cardiovascular: Reports: as per HPI. Denies: chest pain Respiratory: Reports: as per HPI, cough, dyspnea, wheezes Gastrointestinal: Reports: as per HPI. Denies: abdominal pain, nausea, vomiting Genitourinary: Reports: as per HPI Musculoskeletal: Reports: as per HPI Integumentary: Reports: as per HPI Neurological: Reports: as per HPI Psychiatric: Reports: as per HPI Endocrine: Reports: as per HPI Past Medical History - Past Medical History Medical history: Reports: atrial fibrillation, CHF, COPD, hyperlipidemia, other Surgical history: Reports: non-contributory Psychiatric history: Reports: no psych history, other - Social History Smoking Status: Current every day smoker Smokeless Tobacco Status: No Alcohol use: Reports: unknown Drug use: Reports: unknown Physical Exam - General Limitations: no limitations General appearance: alert, obese, other (moderate distress) - Head Head exam: atraumatic, normocephalic, normal inspection - Eye Eye exam: Present: normal appearance, EOMI - ENT ENT exam: normal exam, mucous membranes moist - Neck Neck exam: Present: normal inspection - Chest Chest inspection: Present: normal inspection, symmetric chest wall rise - Respiratory Respiratory exam: Present: wheezes (Diffuse expiratory wheezes with right sided ronchi), accessory muscle use, prolonged expiratory phase - Cardiovascular Cardiovascular exam: Present: tachycardia, irregular rhythm - Abdominal Exam Abdominal exam: Present: soft, Non-Tender - Extremities Exam Extremities exam: Present: normal inspection. Absent: pedal edema - Back Exam Back exam: Present: normal inspection - Neurological Exam Neurological exam: Present: alert, oriented X3 - Skin Skin exam: Present: warm, dry, intact, normal color Course Course Narrative: Patient seen and examined upon arrival via EMS. Patient's oxygen saturation improved with DuoNeb as well as 15 L nonrebreather and round. Patient is not conversational dyspnea. Patient has a long-standing history of COPD. Patient will get basic lab work, EKG, chest x-ray DuoNeb's steroids. Disposition likely admission. - Reevaluation(s) Reevaluation #1: Patient had tachypnea and had increased work of breathing. Patient was placed on BiPAP. Time: 00:14 Reevaluation #2: Patient updated on plan of care. Time: 00:50 Vital Signs Temperature 99.0 F 09/03/16 22:33 Pulse Rate 104 09/03/16 22:33 Respiratory Rate 22 09/03/16 22:33 Blood Pressure 143/89 09/03/16 22:33 O2 Sat by Pulse Oximetry 96 09/03/16 22:33 Temperature 97.4 F L 09/04/16 02:58 Pulse Rate 95 09/04/16 02:58 Respiratory Rate 23 09/04/16 02:58 Blood Pressure 110/75 09/04/16 02:58 O2 Sat by Pulse Oximetry 97 09/04/16 02:58 Oxygen Delivery Oxygen Delivery Bipap Shortness of Breath/Dyspnea - MDM Narrative Medical decision making narrative: 55-year-old female history of COPD presents for evaluation of shortness of breath. Patient responded to aerosols. Patient was given IV steroids. His chest x-ray shows no acute normality. Patient has been admitted for similar symptoms in the past. Patient's EKG shows no acute changes. Patient's lab work shows no leukocytosis. Does have baseline BNP elevation. Patient was given by mouth antibiotics. Given the patient's increased work of breathing and respiratory distress the patient will be admitted to the hospital service for COPD exacerbation. Patient has no risk factors that would suggest any other pathology. Less likely it is a pulmonary embolism or ACS. Patient's symptoms appear to be more consistent with COPD than her BNP. Patient did have an EF of 65% during last hospitalization. - Lab Data Lab results reviewed: Yes I reviewed the patient's lab results. Result diagrams: 09/03/16 23:34 09/03/16 23:34 Lab Results 09/03/16 09/03/16 09/03/16 Range/Units 23:34 23:34 23:34 WBC 10.2 (4.3-11.1) K/mcL RBC 3.86 (3.82-4.97) M/mcL Hgb 12.1 (11.5-15.4) g/dL Hct 38.9 (35.3-44.9) % MCV 100.8 H (83.0-100.0) fL MCH 31.3 (28.0-33.3) pg MCHC 31.1 L (31.6-35.5) g/dL RDW 18.7 H (11.5-14.5) % Plt Count 264 (140-400) K/mcL MPV 9.6 (9.4-12.4) fL Immature Gran % 1.0 (0-4) % Seg Neutrophils % 77.9 % Lymphocytes % 13.3 % Monocytes % 6.5 % Eosinophils % 1.0 % Basophils % 0.3 % Neutrophils # 8.0 (1.6-8.9) K/mcL Lymphocytes # 1.4 (0.6-4.6) K/mcL Monocytes # 0.7 (0.0-1.3) K/mcL Eosinophils # 0.1 (0.0-0.6) K/mcL Basophils # 0.0 (0.0-0.2) K/mcL Nucleated RBCs/100 WBC 1.3 H (0) /100 WBC PT 16.2 H (9.4-12.1) Seconds INR 1.5 APTT 27.0 (26.0-36.0) Seconds VBG pH (7.32-7.42) pH Units VBG pCO2 (41-51) mmHg VBG pO2 (25-40) mmHg VBG HCO3 (21-27) mEq/L Sodium 142 (136-145) mEq/L Potassium 3.5 (3.5-4.5) mEq/L Chloride 101 (98-109) mEq/L Carbon Dioxide 32 H (19-29) mEq/L BUN 19 (7-20) mg/dL Creatinine 0.80 (0.57-1.11) mg/dL Est GFR ( Amer) > 60 (> 60) Est GFR (Non-Af Amer) > 60 (> 60) BUN/Creatinine Ratio 24 (6-26) Glucose 179 H (70-99) mg/dL Calculated Osmolality 301 H (280-300) Calcium 9.1 (8.6-10.8) mg/dL Troponin I (0-0.03) ng/mL B-Natriuretic Peptide (0-100) pg/mL 09/03/16 09/03/16 09/03/16 Range/Units 23:34 23:34 23:34 WBC (4.3-11.1) K/mcL RBC (3.82-4.97) M/mcL Hgb (11.5-15.4) g/dL Hct (35.3-44.9) % MCV (83.0-100.0) fL MCH (28.0-33.3) pg MCHC (31.6-35.5) g/dL RDW (11.5-14.5) % Plt Count (140-400) K/mcL MPV (9.4-12.4) fL Immature Gran % (0-4) % Seg Neutrophils % % Lymphocytes % % Monocytes % % Eosinophils % % Basophils % % Neutrophils # (1.6-8.9) K/mcL Lymphocytes # (0.6-4.6) K/mcL Monocytes # (0.0-1.3) K/mcL Eosinophils # (0.0-0.6) K/mcL Basophils # (0.0-0.2) K/mcL Nucleated RBCs/100 WBC (0) /100 WBC PT (9.4-12.1) Seconds INR APTT (26.0-36.0) Seconds VBG pH 7.32 (7.32-7.42) pH Units VBG pCO2 72 H (41-51) mmHg VBG pO2 70 H (25-40) mmHg VBG HCO3 37.1 H (21-27) mEq/L Sodium (136-145) mEq/L Potassium (3.5-4.5) mEq/L Chloride (98-109) mEq/L Carbon Dioxide (19-29) mEq/L BUN (7-20) mg/dL Creatinine (0.57-1.11) mg/dL Est GFR ( Amer) (> 60) Est GFR (Non-Af Amer) (> 60) BUN/Creatinine Ratio (6-26) Glucose (70-99) mg/dL Calculated Osmolality (280-300) Calcium (8.6-10.8) mg/dL Troponin I 0.00 (0-0.03) ng/mL B-Natriuretic Peptide 425 H (0-100) pg/mL - Radiology Data Radiology results reviewed: Yes I reviewed the patient's radiology results. Chest X-Ray 09/03/16 22:57 IMPRESSION: Mild atelectatic changes and cardiomegaly. No significant worsening since the previous evaluation. D/ / Justyna Molina MD / Justyna Molina MD Interpreting Provider: Justyna Molina MD - EKG Data EKG attestation: Yes I reviewed and interpreted this EKG. Rate: Reports: tachycardia Rhythm: Reports: A.Fib [place]/QRS: Reports: normal Q waves: Reports: v1, v2 Interpretation: Reports: unchanged when compared to prior tracing (date), nonspecific ST-T wave changes Critical Care Time Critical Care Time: Yes Total Critical Care Time: 40 Attestation: Critical care performed: Time is exclusive of separately billable procedures. Time includes: direct patient care, patient reassessment, coordination of patient care, interpretation of data (laboratory data, radiology data, and respiratory data), review of patient's medical records, medical consultation and documentation of patient care. Procedures included in critical care time: Procedures excluded from critical care time: Amy.Latia - [place] Situation: Demographics Background: Presenting Complaint Assessment: Vital Signs, Course and respsone to treatment, Patient/Family Expectation, Pertinant Lab Results Recommendation: Barrier(s) to disposition, Recommendation based on pending studies, treatments, or consults [place] Report Given to: Dr. Chaparro Robbins Repor Time: 00:50 Attestation Statement - Attestation Attestation: I, Nick Pablo MD, personally evaluated this patient and discussed their management with the resident physician. I reviewed the resident's note and agree with the documented findings, medical decision making, and plan of care. 55-year-old female with history of COPD presents to the emergency department by EMS with a complaint of increased difficulty breathing over the past several days but acutely worse this evening. EMS reports on their arrival that the patient's pulse oximetry was in the 70s. She received an albuterol treatment and oxygen in route to the hospital. Patient states that she has had some increased cough. No definite fever. She was last admitted about 3-4 weeks ago for her COPD. She is on home oxygen at 3-1/2 L and uses nebulizer treatments at home. On examination patient is a well-developed morbidly obese female in moderate respiratory distress. She is alert and oriented 3. There is no cyanosis or diaphoresis. Breath sounds are decreased bilaterally with diffuse bilateral expiratory wheezes. Heart is irregularly irregular with a mild tachycardia. Abdomen is soft with normal bowel sounds. Chest x-ray shows some atelectatic changes and cardiomegaly, no significant change from prior chest x-ray. EKG shows atrial fibrillation with RVR with a heart rate of about 110, no significant change from prior EKG. Labs reviewed. Patient received 3 DuoNeb treatments and IV Solu-Medrol here in the emergency department. She was also placed on BiPAP.
[2016-09-03 23:41] LABS: Basophils % 0.3 %; Eosinophils # 0.1 K/mcL (0.0-0.6); Hematocrit 38.9 % (35.3-44.9); Hemoglobin 12.1 g/dL (11.5-15.4); Lymphocytes # 1.4 K/mcL (0.6-4.6); Lymphocytes % 13.3 %; Mean Corpuscular HGB Conc 31.1 g/dL (31.6-35.5); Mean Corpuscular Hemoglobin 31.3 pg (28.0-33.3); Mean Corpuscular Volume 100.8 fL (83.0-100.0); Mean Platelet Volume 9.6 fL (9.4-12.4); Monocytes # 0.7 K/mcL (0.0-1.3); Monocytes % 6.5 %; Nucleated Red Blood Cells 1.3 /100 WBC (0); Platelet Count 264 K/mcL (140-400); Red Blood Count 3.86 M/mcL (3.82-4.97); Red Cell Distribution Width 18.7 % (11.5-14.5); Segmented Neutrophils % 77.9 %
[2016-09-03 23:46] LABS: INR 1.5; Prothrombin Time 16.2 Seconds (9.4-12.1); VBG HCO3 37.1 mEq/L (21-27); VBG PH 7.32 pH Units (7.32-7.42)
[2016-09-03 23:55] LABS: BUN/Creatinine Ratio 24 (6-26); Blood Urea Nitrogen 19 mg/dL (7-20); Calcium 9.1 mg/dL (8.6-10.8); Carbon Dioxide 32 mEq/L (19-29); Chloride 101 mEq/L (98-109); Glucose 179 mg/dL (70-99); Osmolality,Calculated 301 (280-300); Potassium 3.5 mEq/L (3.5-4.5); Sodium 142 mEq/L (136-145); eGFR For African Americans > 60 (> 60); eGFR For Non-African Americans > 60 (> 60)
[2016-09-04] MEDS ORDERED: levoFLOXacin 500 MG TABLET PO ONE (00:11)
[2016-09-04] MEDS: Nystatin POWDER 30 GM BOTTLE TP SCH ×4 (03:16→23:44)
[2016-09-04] MEDS ORDERED: Naloxone 0.4 MG/ML INJ IVP PRN (05:03)
[2016-09-04] MEDS ORDERED: *HR* Morphine 2 MG/ML SYRINGE IVP PRN (05:03)
[2016-09-04] MEDS ORDERED: *HR* Promethazine 25 MG/ML VIAL IVP PRN (05:03)
[2016-09-04] MEDS ORDERED: Bumetanide 1 MG/4 ML VIAL IVP ONE (05:03)
[2016-09-04] MEDS ORDERED: Benzonatate 100 MG CAPSULE PO PRN (05:03)
[2016-09-04] MEDS ORDERED: *HR* LORazepam 0.5 MG TABLET PO PRN (05:03)
[2016-09-04] MEDS ORDERED: Ipratropium Neb 0.5 MG NEBULIZER IH PRN (05:03)
[2016-09-04] MEDS ORDERED: metOLazone 2.5 MG TABLET PO STA (05:03)
--- NOTE | 2016-09-04 05:20 | Internal Med History&Physical ---
Date of Encounter: 09/04/16 Time of Encounter: 05:00 Assessment and Plan (1) Acute exacerbation of chronic obstructive airways disease Current visit: Yes Status: Acute . (2) Acute and chronic respiratory failure with hypercapnia Current visit: Yes Status: Acute . (3) Acute diastolic (congestive) heart failure Current visit: Yes Status: Acute . (4) Atrial fibrillation with rapid ventricular response Current visit: Yes Status: Acute . (5) Morbid obesity with BMI of 60.0-69.9, adult Current visit: Yes Status: Chronic . (6) H/O noncompliance with medical treatment, presenting hazards to health Current visit: Yes Status: Acute . Internal Medicine - H&P: HPI Chief complaint: Difficulty breathing Admitted From: Emergency Dept Plans for Post Hospital Care: Home History of present illness: Ms. Mccormick is a 55 year old female with history significant of COPD/O2 dependent chronic respiratory failure, hypercapnic hypoxic respiratory failure, hypertension, dyslipidemia, paroxysmal atrial fibrillation, diastolic CHF, OA/OP , TYE/OHS, morbid obesity, nicotine dependency, etc.. Patient is admitted to [facility] via emergency department when she presents by EMS services from home with complaints of some decline in ability to breathe in spite of home oxygen therapy and bronchodilator therapies. She was last hospitalized proximately at 3 weeks to this presentation. Diagnoses of admission were similar to today's presentation. She states that her current symptoms progressed over the last several days but acutely worsened on the evening of presentation. She denies currently any fevers chills or sweats. Acknowledges a cough. Denies chest pain. Denies nausea vomiting diarrhea. EMS services at the time of transport noted the patient to be acutely hypoxic with saturations by pulse oximetry in the 70s% range spite of home O2 set at 3.5 L/m nasal cannula. O2 saturations improved with oxygen delivery changed to 15 L per nonrebreather mask and DuoNeb administration. At time of arrival to the ED she was no longer conversationally dyspneic. Findings in the ED: Temperature 99 pulse 79-114 respirations 20-22 BP 112-143/61-89 O2 saturation 96 % on BiPAP. Telemetry and EKG showed no acute ischemic changes. Atrial fibrillation with tachycardic rate nonspecific ST-T wave changes. WBC 10 point hemoglobin 12.1 platelets 264,000. Differential was normal. PT 16.2 INR 1.5 PTT 27. Metabolic panel noted CO2 of 32. BUN 19 creatinine 0.8. Glucose 179 osmolality 301. Venous blood gas pH 7.32 PCO2 72 PO2 70 bicarbonate 37.1. Troponin 0.00 BNP 425. Chest x-ray demonstrated mild atelectatic changes. Cardiomegaly. No significant worsening his previous evaluation. Preliminary impression suggests acute on chronic hypoxic-hypercapnic respiratory failure in a patient with well-defined O2 dependent chronic respiratory failure treated by super-morbid obesity, TYE/OHS, and diastolic CHF. She presents with acute exacerbation of COPD and acute on chronic exacerbation of diastolic CHF in the setting of atrial fibrillation RVR. The patient presents a significant risk to clinically decline and morbidity given her significant history of medical treatment noncompliance, presenting chief complaint and findings and comorbid conditions. Workup and treatments will proceed comprehensively. The patient was visited and interviewed and examined. Cumulative laboratory and radiographic data base will be considered and discussed. Pertinent ancillary medical records including ECW and PCI documentation when available was reviewed and considered. Given the patient's presenting concerns, past medical history, clinical findings and symptoms, she is admitted at this time will undergo further evaluation and disposition. Orders were written as per the computerized physician supervisor order takers system.......................................................................... .................... Consultative opinions will be sought as clinical circumstances justify. Pain management needs will be addressed. Laboratory=radiographic data base will be updated as appropriate. Studies include: Cultures of blood urine sputum, UA, UDS, pt/inr, aptt, ddimer, cardiac injury panel, BNP, metabolic and hematologic panel, magnesium phosphorus, ionized calcium, thyroid panel lipid profile, A1c C-peptide, CRP sedimentation rate, respiratory infection profile, respiratory virus panel, blood gas, lactic acid, serologies, etc. Precautions: Aspiration, fall, delirium protocol/surveillance initiated. Telemetry with continuous hemodynamic monitoring and pulse oximetry initiated. Orthostatic vital signs. Empiric antibiotic coverage: Intravenous Rocephin and azithromycin pending culture data. Special studies: CT/CTA chest, chest x-ray, telemetry, EKG, 2D echo. Pulmonary toilet: Incentive spirometry, aerosol bronchodilator, mucolytic, antitussive, supplemental oxygen. Corticosteroid therapy. CPAP/BiPAP supplemental oxygen delivery. Aerosol Mucomyst therapy. Fluid and electrolyte repletion efforts will proceed. Careful attention to fluid balance and renal recovery will be emphasized. Avoidance of nephrotoxic exposure and adverse drug drug interaction in the setting of impaired renal function will be monitored closely. Acute coronary syndrome protocol/surveillance initiated. Acute heart failure decompensation protocol/surveillance initiated. 7339-6167 mL fluid restriction per 24 hours. No added salt/heart healthy diet restriction. Gentle diuresis with careful attention to total fluid balance and stable hemodynamics. DVT and PUD prophylaxis initiated: PPI therapy, intermittent pneumatic cuffs. Subcutaneous heparin/Lovenox. Early ambulation will be encouraged. Immunization updates recommended. Influenza and pneumococcal vaccinations as part of ongoing preventative healthcare recommendations strongly recommended. Smoking cessation counseling briefly addressed. Patient accepts nicotine substitution during this hospitalization . Advanced care directive discussion briefly addressed. Patient does not declare any healthcare restrictions at this time. Cardiovascular risk appraisal and cardiovascular risk reduction efforts will be emphasized. Physical= occupational therapy may be counseled to evaluate patient's function capacity and progressive mobility if her circumstances justify. Nutrition/dietary education and supplementary diet options counseling may be considered as circumstances justify. Outpatient medication schedules will be reviewed, confirmed and facilitated as appropriate. Reconciliation of home treatments including adjustments, substitutions and reintroduction into the treatment regimen will address necessary maintenance therapies for chronic pre-existing medical conditions. Plan of care has been reviewed and discussed in detail with the patient. Questions addressed. Hospital course dictated by clinical findings, treatment response and potential consultative interventions. Patient is at risk for further acute clinical decline due to her presenting chief complaints and comorbid conditions. Condition is serious. Prognosis is guarded. CODE STATUS is full. Past Med Surg Social Fam HX - Past Medical History Source: old records reviewed Medical history: arthritis, asthma, atrial fibrillation, CHF, COPD (OHS. TYE. O2 dep chronic respiratory failure.), diabetes, GERD, hyperlipidemia, hypertension, osteoporosis, valvular heart disease, other Psychiatric history: no psych history, other - Past Surgical History Surgical History: non-contributory, other - Social History Smoking Status: Current every day smoker Smokeless Tobacco Status: No Alcohol use: rarely Drug use: none, unknown Occupational status: unemployed Current living situation: Home, With Family Activity Level: Independent ambulation, Mostly sedentary Recent Out of Country Travel Within the Last 8 Weeks: No Exposure or Possible Exposure to Illness During Travel: No - Family History Mother Living Status: Hx Family Cardiac Disorders: Yes Hx Family Endocrine Disorder: Yes (Hypothyroid, DM) Father Living Status: Hx Family Respiratory Disorders: Yes (Asthma, COPD, Emphysema) Internal Medicine - H&P: Meds Aclidinium Vernalis [Tudorza Pressair] 1 puff IH BID 09/08/15 [History] Albuterol Sulfate [Proair Hfa] 2 puff IH Q4H PRN 09/08/15 [History] Budesonide/Formoterol 160/4.5 [Symbicort 160/4.5] 2 puff IH BIDR 09/08/15 [ History] Simvastatin [Zocor] 40 mg PO HS 09/08/15 [History] Aspirin 325 mg PO DAILY #60 tablet 09/19/15 [Rx] Diltiazem CD (24hr) [Cardizem CD] 360 mg PO DAILY #30 cap.er.24h 09/19/15 [Rx] Metoprolol [Lopressor] 50 mg PO BID #60 tablet 09/19/15 [Rx] Albuterol Neb [Proventil Neb] 2.5 mg IH Q4HR 07/05/16 [History] Furosemide [Lasix] 40 mg PO DAILY 09/04/16 [History] Allergies Penicillins Allergy (Verified 09/03/16 22:33) Rash All Systems PM: A 10-system review of systems was performed and is negative for pertinent findings except as documented above in the HPI. - Constitutional Constitutional: as per HPI, fatigue, malaise, no chills, no fever(s), no night sweats - EENT Eyes: as per HPI, no change in vision, no discharge, no pain, no photophobia Ears: as per HPI, no ear discharge, no ear pain, no tinnitus Nose, mouth and throat: as per HPI, nasal congestion, post-nasal drip, no dysphagia, no nasal discharge, no neck pain, no sore throat - Cardiovascular Cardiovascular ROS IM: as per HPI, dyspnea, dyspnea on exertion, edema, orthopnea, paroxysmal nocturnal dyspnea, other, no chest pain, no diaphoresis, no lightheadedness, no palpitations, no syncope - Respiratory Respiratory: as per HPI, cough, dyspnea on exertion, wheezing, chest congestion , other, no dyspnea, no excessive phlegm production - Gastrointestinal Gastrointestinal: as per HPI, no abdominal pain, no diarrhea, no hematemesis, no hematochezia, no melena, no nausea, no vomiting - Genitourinary Genitourinary: as per HPI, no change in urinary stream, no dysuria, no flank pain, no hematuria - Musculoskeletal Musculoskeletal ROS IM: as per HPI, no numbness, no tingling - Integumentary Integumentary IM: as per HPI, no rash, no unusual bruising - Neurological Neurological ROS: as per HPI, no confusion, no convulsions, no focal weakness, no numbness, no tingling, no tremor(s) - Psychiatric Psychiatric: as per HPI - Endocrine Endocrine IM: as per HPI - Hematologic/Lymphatic Hematologic/Lymphatic: as per HPI, no easy bruising - Allergic/Immunologic Allergic/Immunologic: as per HPI - Constitutional Vitals: Temp Pulse Resp BP Pulse Ox 97.4 F L 95 23 110/75 97 09/04/16 02:58 09/04/16 02:58 09/04/16 02:58 09/04/16 02:58 09/04/16 02:58 Vital Signs Temp Pulse Resp BP Pulse Ox 09/04/16 02:58 97.4 F L 95 23 110/75 97 09/04/16 01:47 24 112/72 09/04/16 00:15 79 20 112/61 95 09/03/16 23:48 29 95 09/03/16 23:23 98 28 120/84 100 09/03/16 23:01 26 95 09/03/16 22:33 99.0 F 104 22 143/89 96 Intake and Output 09/03/16 09/03/16 09/04/16 15:59 23:59 07:59 Intake Total 500 / 500 Balance 500 / 500 Intake: IV Fluids 500 / 500 0.9 % Sodium Chloride 500 500 / 500 ML @ 1875 mls/hr IVC . Q16M ONE Rx#:[id number] Oral 0 / 0 Other: Weight 170.097 kg 191.6 kg Patient Weight 09/04/16 23:59 Weight 191.6 kg General appearance: Present: mild distress, A&O X 3, obese, answers questions appropriately - Head Head exam: Present: atraumatic, normocephalic - Eye Eye exam: Present: EOMI, PERRL, conjuntiva pink, sclera anicteric Pupils: Present: normal accommodation, PERRL - ENT ENT exam: Present: mucous membranes moist, normal oropharynx - Neck Neck exam general surgery: Present: full ROM, supple, trachea midline. Absent: lymphadenopathy - Respiratory Respiratory exam: Present: accessory muscle use, chest wall tenderness, decreased breath sounds, prolonged expiratory phase, rhonchi, wheezes, tachypnea. Absent: CTAB, rales, stridor - Cardiovascular Cardiovascular exam: Present: distant heart sounds, irregular rhythm, +S1, +S2, tachycardia. Absent: diastolic murmur, gallop, rubs, systolic murmur - GI/Abdominal GI/Abdominal exam: Present: normal bowel sounds, soft, no peritoneal signs. Absent: distended, tenderness - Extremities Exam Extremities exam: Present: warm, radial pulses palpable and symetrical. Absent : calf tenderness, cyanotic, pedal edema - Neurological Exam Neurological exam: Present: alert, altered, CN II-XII intact, oriented X3, no focal deficits. Absent: pronater drift, facial droop, speech deficit - Psychiatric Psychiatric exam: Present: anxious, normal affect, normal mood - Skin Skin exam: Present: dry, intact, warm. Absent: petechiae, rash, urticaria, vesicles Internal Med - H&P Results - Labs CBC & Chem 7: 09/07/16 03:40 09/07/16 03:40 Labs: Short CBC 09/03/16 Range/Units 23:34 WBC 10.2 (4.3-11.1) K/mcL Hgb 12.1 (11.5-15.4) g/dL Hct 38.9 (35.3-44.9) % Plt Count 264 (140-400) K/mcL Neutrophils # 8.0 (1.6-8.9) K/mcL BMP 09/03/16 Range/Units 23:34 Sodium 142 (136-145) mEq/L Potassium 3.5 (3.5-4.5) mEq/L Chloride 101 (98-109) mEq/L Carbon Dioxide 32 H (19-29) mEq/L BUN 19 (7-20) mg/dL Creatinine 0.80 (0.57-1.11) mg/dL Glucose 179 H (70-99) mg/dL Calcium 9.1 (8.6-10.8) mg/dL Cardiac Enzymes 09/03/16 Range/Units 23:34 Troponin I 0.00 (0-0.03) ng/mL Abnormal lab results MCV 100.8 fL (83.0-100.0) H 09/03/16 23:34 MCHC 31.1 g/dL (31.6-35.5) L 09/03/16 23:34 RDW 18.7 % (11.5-14.5) H 09/03/16 23:34 Nucleated RBCs/100 WBC 1.3 /100 WBC (0) H 09/03/16 23:34 PT 16.2 Seconds (9.4-12.1) H 09/03/16 23:34 VBG pCO2 72 mmHg (41-51) H 09/03/16 23:34 VBG pO2 70 mmHg (25-40) H 09/03/16 23:34 VBG HCO3 37.1 mEq/L (21-27) H 09/03/16 23:34 Carbon Dioxide 32 mEq/L (19-29) H 09/03/16 23:34 Glucose 179 mg/dL (70-99) H 09/03/16 23:34 Calculated Osmolality 301 (280-300) H 09/03/16 23:34 B-Natriuretic Peptide 425 pg/mL (0-100) H 09/03/16 23:34 Laboratory Results WBC 10.2 K/mcL (4.3-11.1) 09/03/16 23:34 RBC 3.86 M/mcL (3.82-4.97) 09/03/16 23:34 Hgb 12.1 g/dL (11.5-15.4) 09/03/16 23:34 Hct 38.9 % (35.3-44.9) 09/03/16 23:34 MCV 100.8 fL (83.0-100.0) H 09/03/16 23:34 MCH 31.3 pg (28.0-33.3) 09/03/16 23:34 MCHC 31.1 g/dL (31.6-35.5) L 09/03/16 23:34 RDW 18.7 % (11.5-14.5) H 09/03/16 23:34 Plt Count 264 K/mcL (140-400) 09/03/16 23:34 MPV 9.6 fL (9.4-12.4) 09/03/16 23:34 Immature Gran % 1.0 % (0-4) 09/03/16 23:34 Seg Neutrophils % 77.9 % 09/03/16 23:34 Lymphocytes % 13.3 % 09/03/16 23:34 Monocytes % 6.5 % 09/03/16 23:34 Eosinophils % 1.0 % 09/03/16 23:34 Basophils % 0.3 % 09/03/16 23:34 Neutrophils # 8.0 K/mcL (1.6-8.9) 09/03/16 23:34 Lymphocytes # 1.4 K/mcL (0.6-4.6) 09/03/16 23:34 Monocytes # 0.7 K/mcL (0.0-1.3) 09/03/16 23:34 Eosinophils # 0.1 K/mcL (0.0-0.6) 09/03/16 23:34 Basophils # 0.0 K/mcL (0.0-0.2) 09/03/16 23:34 Nucleated RBCs/100 WBC 1.3 /100 WBC (0) H 09/03/16 23:34 PT 16.2 Seconds (9.4-12.1) H 09/03/16 23:34 INR 1.5 09/03/16 23:34 APTT 27.0 Seconds (26.0-36.0) 09/03/16 23:34 VBG pH 7.32 pH Units (7.32-7.42) 09/03/16 23:34 VBG pCO2 72 mmHg (41-51) H 09/03/16 23:34 VBG pO2 70 mmHg (25-40) H 09/03/16 23:34 VBG HCO3 37.1 mEq/L (21-27) H 09/03/16 23:34 Sodium 142 mEq/L (136-145) 09/03/16 23:34 Potassium 3.5 mEq/L (3.5-4.5) 09/03/16 23:34 Chloride 101 mEq/L (98-109) 09/03/16 23:34 Carbon Dioxide 32 mEq/L (19-29) H 09/03/16 23:34 BUN 19 mg/dL (7-20) 09/03/16 23:34 Creatinine 0.80 mg/dL (0.57-1.11) 09/03/16 23:34 Est GFR ( Amer) > 60 (> 60) 09/03/16 23:34 Est GFR (Non-Af Amer) > 60 (> 60) 09/03/16 23:34 BUN/Creatinine Ratio 24 (6-26) 09/03/16 23:34 Glucose 179 mg/dL (70-99) H 09/03/16 23:34 Calculated Osmolality 301 (280-300) H 09/03/16 23:34 Calcium 9.1 mg/dL (8.6-10.8) 09/03/16 23:34 Troponin I 0.00 ng/mL (0-0.03) 09/03/16 23:34 B-Natriuretic Peptide 425 pg/mL (0-100) H 09/03/16 23:34 Impressions Chest X-Ray 09/03/16 22:57 IMPRESSION: Mild atelectatic changes and cardiomegaly. No significant worsening since the previous evaluation. D/ / Justyna Molina MD / Justyna Molina MD Interpreting Provider: Justyna Molina MD
[2016-09-04] MEDS ORDERED: Promethazine 12.5 MG in 0.9 % Sodium Chloride 50 ML IVPB PRN (05:30)
[2016-09-04 05:47] LABS: Magnesium 1.7 mg/dL (1.6-2.6); Phosphorous 4.8 mg/dL (2.3-4.7)
[2016-09-04] MEDS: *HR* Enoxaparin 40 MG/0.4 ML SYRINGE SQ SCH (05:57)
[2016-09-04] MEDS: methylPREDNISolone 125 MG/2 ML VIAL IVP SCH ×4 (05:57→23:43)
[2016-09-04 06:05] LABS: Amphetamine Screen,Urine Negative ng/mL (Cutoff=1000); Barbiturate Screen,Urine Negative ng/mL (Cutoff=200); Benzodiazepines Screen,Urine Negative ng/mL (Cutoff=200); Cannabinoid Screen,Urine Negative ng/mL (Cutoff = 50); Cocaine Screen,Urine Negative ng/mL (Cutoff= 300); Opiate Screen,Urine Negative ng/mL (Cutoff=300); Phencyclidine Screen,Urine Negative ng/mL (Cutoff=25)
[2016-09-04 06:09] LABS: Thyroid Stimulating Hormone 1.547 mcIU/mL (0.350-4.840)
[2016-09-04 06:32] LABS: Alanine Aminotransferase 11 Units/L (0-55); Albumin 2.7 g/dL (3.5-5.0); Albumin/Globulin Ratio 0.5 (1.1-2.2); Alkaline Phosphatase 108 Units/L (38-126); Bilirubin,Indirect 0.3 mg/dL (0.0-1.2); Bilirubin,Total 0.6 mg/dL (0.2-1.2); Globulin 5.1 g/dL (2.4-3.5); Total Protein 7.8 g/dL (6.0-8.3)
[2016-09-04 06:34] LABS: Aspartate Amino Transferase 26 Units/L (5-34); Bilirubin,Direct 0.3 mg/dL (0.0-0.5); Ethanol < 10 mg/dL (0-10)
[2016-09-04] MEDS: Albuterol 2.5 MG/3 ML NEBULIZER IH SCH ×5 (08:17→23:59)
[2016-09-04] MEDS: (Aclidinium Bromide [Tudorza Pressair] 1 PUFF) IH SCH ×2 (09:00→20:50)
[2016-09-04] MEDS: Nicotine 21 MG PATCH.TD24 TD SCH (09:06)
[2016-09-04] MEDS: Aspirin 325 MG TABLET PO SCH (09:06)
[2016-09-04] MEDS: Furosemide 40 MG TABLET PO SCH ×2 (09:06→20:50)
[2016-09-04] MEDS: Famotidine 20 MG TABLET PO SCH ×2 (09:07→20:50)
[2016-09-04] MEDS: Diltiazem CD (24hr) 180 MG CAPSULE PO SCH (09:07)
[2016-09-04] MEDS ORDERED: Furosemide 40 MG/4 ML VIAL IVP ONE (10:26)
[2016-09-04 11:12] LABS: Bilirubin,Urine Negative (Negative); Blood,Urine Negative (Negative); Clarity,Urine Clear (Clear); Color,Urine Yellow (Yellow); Glucose,Urine (UA) Normal (Normal); Ketones,Urine Negative (Negative); Leukocyte Esterase,Urine Negative (Negative); Nitrite,Urine Negative (Negative); Protein,Urine Negative (Neg-Trace); Specific Gravity,Urine 1.014 (1.010-1.025); Urobilinogen,Urine Normal (Normal)
--- NOTE | 2016-09-04 12:46 | Event Note ---
Date of Encounter: 09/04/16 Time of Encounter: 12:44 Patient is a 55y/o morbidly obese female admitted for acute respiratory distress secondary to COPD exacerbation. Patient seen and examined at bedside. Reports of improvement in her respiratory status. She has underlying CHF for which she is to continue on diuretic therapy. Received one time dose of IV lasix with good urine output. Currently saturating well on nasal cannula and not in any respiratory distress. Asked about her discharge planning and states she feels better since her admission.
--- NOTE | 2016-09-04 17:59 | Electrocardiograph Report ---
[place] [id number] Test Date: 2016-09-03 Pat Name: Shanda Mccormick Department: [id number] Room: 2A38 Gender: F Head Sampler: SAMEER : 1960 Requested By: Paul Jorge Order Number: [id number] Reading MD: Ally Shafer Measurements Intervals [place] Rate: 109 P: OR: 0 QRS: 21 QRSD: 98 T: 85 QT: 323 QTc: 387 Interpretive Statements ATRIAL FIBRILLATION WITH RAPID VENTRICULAR RESPONSE LOW QRS VOLTAGE ANTEROSEPTAL MYOCARDIAL INFARCTION, PROBABLY OLD Electronically Signed On 09-04-2016 17:58:06 EDT by Ally Shafer
[2016-09-04] MEDS: Melatonin 3 MG TABLET PO SCH (20:50)
[2016-09-05 03:10] LABS: Basophils % 0.3 %; Hematocrit 37.6 % (35.3-44.9); Hemoglobin 11.5 g/dL (11.5-15.4); Immature Granulocytes % 1.5 % (0-4); Lymphocytes # 1.1 K/mcL (0.6-4.6); Lymphocytes % 9.4 %; Mean Corpuscular HGB Conc 30.6 g/dL (31.6-35.5); Mean Corpuscular Hemoglobin 31.3 pg (28.0-33.3); Mean Corpuscular Volume 102.2 fL (83.0-100.0); Monocytes # 0.4 K/mcL (0.0-1.3); Monocytes % 3.7 %; Nucleated Red Blood Cells 0.8 /100 WBC (0); Platelet Count 308 K/mcL (140-400); Red Blood Count 3.68 M/mcL (3.82-4.97); Red Cell Distribution Width 17.6 % (11.5-14.5); Segmented Neutrophils % 85.1 %
[2016-09-05 03:25] LABS: BUN/Creatinine Ratio 30 (6-26); Blood Urea Nitrogen 26 mg/dL (7-20); Calcium 9.3 mg/dL (8.6-10.8); Carbon Dioxide 35 mEq/L (19-29); Chloride 96 mEq/L (98-109); Chol/HDL Ratio 3.8 (0-4.9); Cholesterol 98 mg/dL (< 200); Glucose 196 mg/dL (70-99); HDL Cholesterol 26 mg/dL (40-59); LDL Cholesterol,Calculated 59 mg/dL (0-99); Magnesium 1.8 mg/dL (1.6-2.6); Osmolality,Calculated 300 (280-300); Phosphorous 4.4 mg/dL (2.3-4.7); Potassium 3.8 mEq/L (3.5-4.5); Sodium 140 mEq/L (136-145); Triglycerides 63 mg/dL (< 150); eGFR For African Americans > 60 (> 60); eGFR For Non-African Americans > 60 (> 60)
[2016-09-05] MEDS: Albuterol 2.5 MG/3 ML NEBULIZER IH SCH ×6 (03:37→23:43)
[2016-09-05] MEDS: methylPREDNISolone 125 MG/2 ML VIAL IVP SCH ×2 (05:56→12:22)
[2016-09-05] MEDS: *HR* Enoxaparin 40 MG/0.4 ML SYRINGE SQ SCH (05:56)
[2016-09-05] MEDS: *HR* OxyCODONE Immed Rel 5 MG TABLET PO PRN (05:58)
[2016-09-05] MEDS: Diltiazem CD (24hr) 180 MG CAPSULE PO SCH (08:47)
[2016-09-05] MEDS: Famotidine 20 MG TABLET PO SCH ×2 (08:47→21:56)
[2016-09-05] MEDS: Aspirin 325 MG TABLET PO SCH (08:47)
[2016-09-05] MEDS: Furosemide 40 MG TABLET PO SCH (08:47)
[2016-09-05] MEDS: Nicotine 21 MG PATCH.TD24 TD SCH (08:48)
[2016-09-05] MEDS: (Aclidinium Bromide [Tudorza Pressair] 1 PUFF) IH SCH ×2 (08:48→21:58)
[2016-09-05] MEDS: Nystatin POWDER 30 GM BOTTLE TP SCH ×3 (08:49→21:57)
[2016-09-05] MEDS ORDERED: Furosemide 40 MG/4 ML VIAL IVP ONE (12:02)
--- NOTE | 2016-09-05 15:24 | Internal Med Progress Note ---
Date of Encounter: 09/05/16 Time of Encounter: 11:30 - Assessment and plan (1) Acute and chronic respiratory failure with hypercapnia Current Visit: Yes Status: Acute Assessment and plan: Likely multifactorial-secondary to COPD exacerbation combined with CHF decompensation Pt improved clinically with aggressive Diuretic and steroid therapy Continue IV steroids and bronchodilator support IV diuresis monitor O2 sat, goal O2 sat: 89-92% monitor daily weights, strict I/Os fluid restricted diet bipap as needed Serial ABG as needed IV abx 2D echo: LVEF 65-70%, normal LV size and systolic function. Indeterminate LV diastolic function. Mild to moderate Mitral regurgitation, moderate-TR, severe pulmonary hypertension (2) Acute diastolic (congestive) heart failure Current Visit: Yes Status: Acute Assessment and plan: as listed above (3) Acute exacerbation of chronic obstructive airways disease Current Visit: Yes Status: Acute Assessment and plan: as listed above (4) Atrial fibrillation with rapid ventricular response Current Visit: Yes Status: Acute Assessment and plan: Rate controlled with Cardizem ASA for anticoagulation (5) DVT prophylaxis Current Visit: No Status: Acute Assessment and plan: Lovenox SQ (6) Morbid obesity with BMI of 60.0-69.9, adult Current Visit: Yes Status: Chronic (7) TYE (obstructive sleep apnea) Current Visit: No Status: Acute Assessment and plan: bipap at bedtime - Subjective Interval history: Patient seen and examined at bedside. Reports of feeling slightly better however continues to require 6-7L of oxygen while she is reported to be on 3L at home. No overnight issues reported. - Constitutional Vitals: Temp Pulse Resp BP Pulse Ox 97.9 F 93 17 106/70 93 09/05/16 10:32 09/05/16 10:32 09/05/16 10:32 09/05/16 10:32 09/05/16 10:32 General appearance: Present: A&O X 3, morbidly obese, no acute distress, answers questions appropriately - Head Head exam: Present: atraumatic, normocephalic - Eye Eye exam: Present: normal appearance, conjuntiva pink, sclera anicteric - Respiratory Respiratory exam: Absent: respiratory distress, wheezes (bilateral bibasilar crackles) - Cardiovascular Cardiovascular exam: Present: RRR, +S1, +S2. Absent: diastolic murmur, gallop, rubs, systolic murmur - GI/Abdominal GI/Abdominal exam: Present: distended (obese), normal bowel sounds, soft. Absent: tenderness - Extremities Exam Extremities exam: Present: pedal edema, warm, radial pulses palpable and symetrical. Absent: calf tenderness - Neurological Exam Neurological exam: Present: alert, oriented X3 - Psychiatric Psychiatric exam: Present: normal affect, normal mood Internal Medicine: Result - Labs CBC & Chem 7: 09/05/16 02:35 09/05/16 02:35 - ABG Interpretation ABG results: PT/INR, D-dimer PT 16.2 Seconds (9.4-12.1) H 09/03/16 23:34 Consult Discharge Plan - Plan Referrals: Danitza De Leon AU PAIR [Advanced Practice Nurse] - 09/12/16 1:00 pm (Please follow up as schedule...) Blanche Caro, PATIENCE [Advanced Practice Nurse] -
[2016-09-05] MEDS: Furosemide 40 MG/4 ML VIAL IVP SCH (17:53)
[2016-09-05] MEDS: Melatonin 3 MG TABLET PO SCH (21:56)
[2016-09-05] MEDS: MethylPREDNISolone 40 MG/ML VIAL IVP SCH (21:56)
[2016-09-06] MEDS: Albuterol 2.5 MG/3 ML NEBULIZER IH SCH ×5 (04:20→20:30)
[2016-09-06 04:28] LABS: Basophils % 0.2 %; Hematocrit 35.2 % (35.3-44.9); Immature Granulocytes % 1.5 % (0-4); Lymphocytes # 1.2 K/mcL (0.6-4.6); Lymphocytes % 7.6 %; Mean Corpuscular HGB Conc 31.3 g/dL (31.6-35.5); Mean Corpuscular Hemoglobin 31.8 pg (28.0-33.3); Mean Corpuscular Volume 101.7 fL (83.0-100.0); Mean Platelet Volume 10.3 fL (9.4-12.4); Monocytes # 0.7 K/mcL (0.0-1.3); Monocytes % 4.4 %; Neutrophils # 13.6 K/mcL (1.6-8.9); Nucleated Red Blood Cells 0.3 /100 WBC (0); Platelet Count 308 K/mcL (140-400); Red Blood Count 3.46 M/mcL (3.82-4.97); Red Cell Distribution Width 17.6 % (11.5-14.5); Segmented Neutrophils % 86.3 %
[2016-09-06 04:47] LABS: BUN/Creatinine Ratio 39 (6-26); Blood Urea Nitrogen 34 mg/dL (7-20); Calcium 9.2 mg/dL (8.6-10.8); Carbon Dioxide 37 mEq/L (19-29); Chloride 93 mEq/L (98-109); Glucose 184 mg/dL (70-99); Magnesium 1.9 mg/dL (1.6-2.6); Osmolality,Calculated 302 (280-300); Phosphorous 3.3 mg/dL (2.3-4.7); Potassium 3.4 mEq/L (3.5-4.5); Sodium 140 mEq/L (136-145); eGFR For African Americans > 60 (> 60); eGFR For Non-African Americans > 60 (> 60)
[2016-09-06] MEDS: MethylPREDNISolone 40 MG/ML VIAL IVP SCH ×3 (05:03→22:10)
[2016-09-06] MEDS: *HR* OxyCODONE Immed Rel 5 MG TABLET PO PRN (05:06)
[2016-09-06] MEDS: *HR* Enoxaparin 40 MG/0.4 ML SYRINGE SQ SCH (05:06)
[2016-09-06] MEDS: (Aclidinium Bromide [Tudorza Pressair] 1 PUFF) IH SCH ×2 (08:23→20:04)
[2016-09-06] MEDS: Nicotine 21 MG PATCH.TD24 TD SCH (08:23)
[2016-09-06] MEDS: Diltiazem CD (24hr) 180 MG CAPSULE PO SCH (08:35)
[2016-09-06] MEDS: Aspirin 325 MG TABLET PO SCH (08:35)
[2016-09-06] MEDS: Furosemide 40 MG/4 ML VIAL IVP SCH ×2 (08:35→16:07)
[2016-09-06] MEDS: Famotidine 20 MG TABLET PO SCH ×2 (08:36→20:04)
[2016-09-06] MEDS: Nystatin POWDER 30 GM BOTTLE TP SCH ×3 (08:36→20:05)
--- NOTE | 2016-09-06 12:10 | Internal Med Progress Note ---
Date of Encounter: 09/06/16 Time of Encounter: 12:07 - Assessment and plan (1) Acute and chronic respiratory failure with hypercapnia Current Visit: Yes Status: Acute Assessment and plan: Likely multifactorial-secondary to COPD exacerbation combined with CHF decompensation Pt improved clinically with aggressive Diuretic and steroid therapy (continue to taper down steroids, changed to IV q12h) Continue IV steroids and bronchodilator support IV diuresis monitor O2 sat, goal O2 sat: 89-92% monitor daily weights, strict I/Os fluid restricted diet bipap as needed Serial ABG as needed IV abx 2D echo: LVEF 65-70%, normal LV size and systolic function. Indeterminate LV diastolic function. Mild to moderate Mitral regurgitation, moderate-TR, severe pulmonary hypertension (2) Acute diastolic (congestive) heart failure Current Visit: Yes Status: Acute Assessment and plan: as listed above (3) Acute exacerbation of chronic obstructive airways disease Current Visit: Yes Status: Acute Assessment and plan: as listed above (4) Atrial fibrillation with rapid ventricular response Current Visit: Yes Status: Acute Assessment and plan: Rate controlled with Cardizem ASA for anticoagulation (5) DVT prophylaxis Current Visit: No Status: Acute Assessment and plan: Lovenox SQ (6) Morbid obesity with BMI of 60.0-69.9, adult Current Visit: Yes Status: Chronic (7) TYE (obstructive sleep apnea) Current Visit: No Status: Acute Assessment and plan: bipap at bedtime (8) Hypokalemia Current Visit: Yes Status: Acute Assessment and plan: K supplemented continue to monitor electrolytes and replace as needed - Subjective Interval history: Patient seen and examined at bedside. Reports of feeling better compared to previous day. O2 demand is decreasing and getting close to baseline. Patient reports of being on 3.5L O2 at home. No overnight issues reported. - Constitutional Vitals: Temp Pulse Resp BP Pulse Ox 97.8 F 75 18 116/67 91 09/06/16 10:50 09/06/16 10:50 09/06/16 11:50 09/06/16 10:50 09/06/16 11:50 General appearance: Present: A&O X 3, morbidly obese, no acute distress, answers questions appropriately - Head Head exam: Present: atraumatic, normocephalic - Eye Eye exam: Present: normal appearance, conjuntiva pink, sclera anicteric - Respiratory Respiratory exam: Present: decreased breath sounds. Absent: respiratory distress, wheezes - Cardiovascular Cardiovascular exam: Present: RRR, +S1, +S2. Absent: diastolic murmur, gallop, rubs, systolic murmur - GI/Abdominal GI/Abdominal exam: Present: normal bowel sounds, soft, no peritoneal signs. Absent: distended, tenderness - Extremities Exam Extremities exam: Present: warm, radial pulses palpable and symetrical. Absent : calf tenderness, cyanotic, pedal edema - Neurological Exam Neurological exam: Present: alert, oriented X3 - Psychiatric Psychiatric exam: Present: normal affect, normal mood Internal Medicine: Result - Labs CBC & Chem 7: 09/06/16 03:41 09/06/16 03:41 Labs: Short CBC 09/06/16 Range/Units 03:41 WBC 15.8 H (4.3-11.1) K/mcL Hgb 11.0 L (11.5-15.4) g/dL Hct 35.2 L (35.3-44.9) % Plt Count 308 (140-400) K/mcL Neutrophils # 13.6 H (1.6-8.9) K/mcL BMP 09/06/16 03:41 Sodium 140 Potassium 3.4 L Chloride 93 L Carbon Dioxide 37 H BUN 34 H Creatinine 0.87 Glucose 184 H Calcium 9.2 - ABG Interpretation ABG results: PT/INR, D-dimer PT 16.2 Seconds (9.4-12.1) H 09/03/16 23:34 - VTE Documentation of Mechanical Device: Intermittent pneumatic compression device Consult Discharge Plan - Plan Referrals: Danitza De Leon, TERMINOLOGIST [Advanced Practice Nurse] - 09/12/16 1:00 pm (Please follow up as schedule...)
[2016-09-06] MEDS: Melatonin 3 MG TABLET PO SCH (20:04)
[2016-09-07] MEDS: Albuterol 2.5 MG/3 ML NEBULIZER IH SCH ×4 (00:15→14:24)
[2016-09-07 04:21] LABS: Basophils % 0.2 %; Hematocrit 36.3 % (35.3-44.9); Hemoglobin 11.5 g/dL (11.5-15.4); Immature Granulocytes % 2.4 % (0-4); Lymphocytes # 1.2 K/mcL (0.6-4.6); Lymphocytes % 7.7 %; Mean Corpuscular HGB Conc 31.7 g/dL (31.6-35.5); Mean Corpuscular Hemoglobin 32.4 pg (28.0-33.3); Mean Corpuscular Volume 102.3 fL (83.0-100.0); Mean Platelet Volume 10.2 fL (9.4-12.4); Monocytes # 0.6 K/mcL (0.0-1.3); Monocytes % 4.2 %; Neutrophils # 12.8 K/mcL (1.6-8.9); Nucleated Red Blood Cells 0.1 /100 WBC (0); Platelet Count 306 K/mcL (140-400); Red Blood Count 3.55 M/mcL (3.82-4.97); Red Cell Distribution Width 17.7 % (11.5-14.5); Segmented Neutrophils % 85.5 %
[2016-09-07 04:34] LABS: BUN/Creatinine Ratio 40 (6-26); Blood Urea Nitrogen 33 mg/dL (7-20); Calcium 9.2 mg/dL (8.6-10.8); Chloride 91 mEq/L (98-109); Glucose 201 mg/dL (70-99); Magnesium 2.2 mg/dL (1.6-2.6); Osmolality,Calculated 305 (280-300); Phosphorous 4.2 mg/dL (2.3-4.7); Potassium 3.8 mEq/L (3.5-4.5); Sodium 141 mEq/L (136-145); eGFR For African Americans > 60 (> 60); eGFR For Non-African Americans > 60 (> 60)
[2016-09-07 05:00] LABS: Carbon Dioxide 42 mEq/L (19-29)
[2016-09-07] MEDS: Acetaminophen 325 MG TABLET PO PRN (05:45)
[2016-09-07] MEDS: *HR* Enoxaparin 40 MG/0.4 ML SYRINGE SQ SCH (05:45)
[2016-09-07] MEDS: Aspirin 325 MG TABLET PO SCH (08:26)
[2016-09-07] MEDS: Furosemide 40 MG/4 ML VIAL IVP SCH (08:27)
[2016-09-07] MEDS: Diltiazem CD (24hr) 180 MG CAPSULE PO SCH (08:27)
[2016-09-07] MEDS: Nicotine 21 MG PATCH.TD24 TD SCH (08:27)
[2016-09-07] MEDS: (Aclidinium Bromide [Tudorza Pressair] 1 PUFF) IH SCH (08:29)
[2016-09-07] MEDS: Famotidine 20 MG TABLET PO SCH ×2 (08:30→21:16)
[2016-09-07] MEDS: MethylPREDNISolone 40 MG/ML VIAL IVP SCH ×2 (11:07→21:17)
[2016-09-07] MEDS: Nystatin POWDER 30 GM BOTTLE TP SCH ×3 (11:07→21:16)
[2016-09-07] MEDS ORDERED: Albuterol 2.5 MG/3 ML NEBULIZER IH PRN (13:15)
[2016-09-07] MEDS ORDERED: *HR* OxyCODONE Immed Rel 5 MG TABLET PO PRN (13:16)
--- NOTE | 2016-09-07 14:51 | Electrocardiograph Report ---
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
--- NOTE | 2016-09-07 15:20 | Internal Med Progress Note ---
Date of Encounter: 09/07/16 Time of Encounter: 15:18 - Assessment and plan (1) Acute and chronic respiratory failure with hypercapnia Current Visit: Yes Status: Acute Assessment and plan: Likely multifactorial-secondary to COPD exacerbation combined with CHF decompensation Pt improved clinically with aggressive Diuretic and steroid therapy (continue to taper down steroids, changed to IV q12h) Continue IV steroids and bronchodilator support will change to PO diuretics monitor O2 sat, goal O2 sat: 89-92% monitor daily weights, strict I/Os fluid restricted diet bipap as needed Serial ABG as needed IV abx 2D echo: LVEF 65-70%, normal LV size and systolic function. Indeterminate LV diastolic function. Mild to moderate Mitral regurgitation, moderate-TR, severe pulmonary hypertension Noted to have worsening of hypercapnia likely due to noncompliance with bipap support. Patient willing to comply at this time Clinically improving and reports of feeling better (2) Acute diastolic (congestive) heart failure Current Visit: Yes Status: Acute Assessment and plan: as listed above (3) Acute exacerbation of chronic obstructive airways disease Current Visit: Yes Status: Acute Assessment and plan: as listed above (4) Atrial fibrillation with rapid ventricular response Current Visit: Yes Status: Acute Assessment and plan: Rate controlled with Cardizem ASA for anticoagulation (5) DVT prophylaxis Current Visit: No Status: Acute Assessment and plan: Lovenox SQ (6) Morbid obesity with BMI of 60.0-69.9, adult Current Visit: Yes Status: Chronic (7) TYE (obstructive sleep apnea) Current Visit: No Status: Acute Assessment and plan: bipap at bedtime (8) Hypokalemia Current Visit: Yes Status: Resolved - Subjective Interval history: Patient seen and examined at bedside. Reports of feeling better compared to previous day. Noted to be not compliant with bipap support overnight. States she feels better but noted to be hypercapnic on morning labs. Pt educated about the need to be compliant with bipap support and is willing to comply at this time. - Constitutional Vitals: Temp Pulse Resp BP Pulse Ox 97.7 F 85 18 96/68 91 09/07/16 10:55 09/07/16 10:55 09/07/16 10:55 09/07/16 10:55 09/07/16 10:55 General appearance: Present: A&O X 3, morbidly obese, no acute distress, answers questions appropriately - Head Head exam: Present: atraumatic, normocephalic - Eye Eye exam: Present: normal appearance, conjuntiva pink, sclera anicteric - Respiratory Respiratory exam: Absent: respiratory distress, wheezes Additional comments: equal air entry bilaterally - Cardiovascular Cardiovascular exam: Present: RRR, +S1, +S2. Absent: diastolic murmur, gallop, rubs, systolic murmur - GI/Abdominal GI/Abdominal exam: Present: normal bowel sounds, soft, no peritoneal signs. Absent: distended, tenderness - Extremities Exam Extremities exam: Present: pedal edema, warm, radial pulses palpable and symetrical. Absent: calf tenderness, tenderness - Neurological Exam Neurological exam: Present: alert, oriented X3 - Psychiatric Psychiatric exam: Present: normal affect, normal mood Internal Medicine: Result - Labs CBC & Chem 7: 09/07/16 03:40 09/07/16 03:40 Labs: Short CBC 09/07/16 Range/Units 03:40 WBC 15.0 H (4.3-11.1) K/mcL Hgb 11.5 (11.5-15.4) g/dL Hct 36.3 (35.3-44.9) % Plt Count 306 (140-400) K/mcL Neutrophils # 12.8 H (1.6-8.9) K/mcL BMP 09/07/16 03:40 Sodium 141 Potassium 3.8 Chloride 91 L Carbon Dioxide 42 H* BUN 33 H Creatinine 0.83 Glucose 201 H Calcium 9.2 - ABG Interpretation ABG results: PT/INR, D-dimer PT 16.2 Seconds (9.4-12.1) H 09/03/16 23:34 - VTE Documentation of Mechanical Device: Intermittent pneumatic compression device Consult Discharge Plan - Plan Referrals: Danitza De Leon LOCOMOTIVE REPAIRER DIESEL [Advanced Practice Nurse] - 09/12/16 1:00 pm (Please follow up as schedule...)
[2016-09-07] MEDS: Ipratropium/Albuterol Neb 3 ML IH SCH ×3 (16:25→23:12)
[2016-09-07] MEDS: Furosemide 40 MG TABLET PO SCH (16:45)
[2016-09-07] MEDS: Melatonin 3 MG TABLET PO SCH (21:15)
[2016-09-08 03:43] LABS: Basophils # 0.1 K/mcL (0.0-0.2); Basophils % 0.3 %; Hematocrit 36.6 % (35.3-44.9); Hemoglobin 11.7 g/dL (11.5-15.4); Immature Granulocytes % 4.3 % (0-4); Lymphocytes # 1.1 K/mcL (0.6-4.6); Lymphocytes % 7.5 %; Mean Corpuscular Hemoglobin 32.4 pg (28.0-33.3); Mean Corpuscular Volume 101.4 fL (83.0-100.0); Monocytes # 0.7 K/mcL (0.0-1.3); Monocytes % 4.7 %; Platelet Count 303 K/mcL (140-400); Red Blood Count 3.61 M/mcL (3.82-4.97); Red Cell Distribution Width 17.6 % (11.5-14.5); Segmented Neutrophils % 83.2 %
[2016-09-08 03:53] LABS: BUN/Creatinine Ratio 38 (6-26); Blood Urea Nitrogen 30 mg/dL (7-20); Calcium 9.2 mg/dL (8.6-10.8); Carbon Dioxide 39 mEq/L (19-29); Chloride 93 mEq/L (98-109); Glucose 217 mg/dL (70-99); Magnesium 2.5 mg/dL (1.6-2.6); Osmolality,Calculated 305 (280-300); Phosphorous 4.1 mg/dL (2.3-4.7); Sodium 141 mEq/L (136-145); eGFR For African Americans > 60 (> 60); eGFR For Non-African Americans > 60 (> 60)
[2016-09-08 03:57] LABS: Potassium 4.1 mEq/L (3.5-4.5)
[2016-09-08] MEDS: *HR* Enoxaparin 40 MG/0.4 ML SYRINGE SQ SCH (04:59)
[2016-09-08] MEDS: Acetaminophen 325 MG TABLET PO PRN (05:00)
[2016-09-08] MEDS: Ipratropium/Albuterol Neb 3 ML IH SCH ×5 (05:16→20:52)
[2016-09-08] MEDS: Diltiazem CD (24hr) 180 MG CAPSULE PO SCH (09:00)
[2016-09-08] MEDS: Aspirin Enteric Coated 325 MG Tablet PO SCH (09:01)
[2016-09-08] MEDS: Furosemide 40 MG TABLET PO SCH ×2 (09:01→17:12)
[2016-09-08] MEDS: Nicotine 21 MG PATCH.TD24 TD SCH (09:01)
[2016-09-08] MEDS: Famotidine 20 MG TABLET PO SCH ×2 (09:01→20:31)
[2016-09-08] MEDS: MethylPREDNISolone 40 MG/ML VIAL IVP SCH ×2 (09:02→21:15)
[2016-09-08] MEDS: Nystatin POWDER 30 GM BOTTLE TP SCH ×3 (09:03→20:32)
--- NOTE | 2016-09-08 11:27 | Internal Med Progress Note ---
Date of Encounter: 09/08/16 Time of Encounter: 11:05 - Assessment and plan (1) Acute and chronic respiratory failure with hypercapnia Current Visit: Yes Status: Acute (2) Acute diastolic (congestive) heart failure Current Visit: Yes Status: Acute (3) Acute exacerbation of chronic obstructive airways disease Current Visit: Yes Status: Acute (4) Atrial fibrillation with rapid ventricular response Current Visit: Yes Status: Acute (5) DVT prophylaxis Current Visit: No Status: Acute (6) Morbid obesity with BMI of 60.0-69.9, adult Current Visit: Yes Status: Chronic (7) TYE (obstructive sleep apnea) Current Visit: No Status: Acute (8) Hypokalemia Current Visit: Yes Status: Resolved - Subjective Interval history: Patient seen and examined at bedside. Reports of feeling better compared to previous day. Noted to be not compliant with bipap support overnight. States she feels better but noted to be hypercapnic on morning labs. Pt educated about the need to be compliant with bipap support and is willing to comply at this time. - Constitutional Vitals: Temp Pulse Resp BP Pulse Ox 97.6 F 89 18 137/82 92 09/08/16 07:39 09/08/16 07:39 09/08/16 10:58 09/08/16 07:39 09/08/16 10:58 General appearance: Present: A&O X 3, morbidly obese, no acute distress, answers questions appropriately - Head Head exam: Present: atraumatic, normocephalic - Eye Eye exam: Present: normal appearance, conjuntiva pink, sclera anicteric - Respiratory Respiratory exam: Present: decreased breath sounds. Absent: respiratory distress, wheezes - Cardiovascular Cardiovascular exam: Present: RRR, +S1, +S2. Absent: diastolic murmur, gallop, rubs, systolic murmur - GI/Abdominal GI/Abdominal exam: Present: normal bowel sounds, soft, no peritoneal signs. Absent: distended, tenderness - Extremities Exam Extremities exam: Present: pedal edema, warm, radial pulses palpable and symetrical. Absent: calf tenderness - Neurological Exam Neurological exam: Present: alert, oriented X3 - Psychiatric Psychiatric exam: Present: normal affect, normal mood Internal Medicine: Result - Labs CBC & Chem 7: 09/08/16 03:12 09/08/16 03:12 Labs: Short CBC 09/08/16 Range/Units 03:12 WBC 14.5 H (4.3-11.1) K/mcL Hgb 11.7 (11.5-15.4) g/dL Hct 36.6 (35.3-44.9) % Plt Count 303 (140-400) K/mcL Neutrophils # 12.0 H (1.6-8.9) K/mcL BMP 09/08/16 03:12 Sodium 141 Potassium 4.1 Chloride 93 L Carbon Dioxide 39 H BUN 30 H Creatinine 0.79 Glucose 217 H Calcium 9.2 - ABG Interpretation ABG results: PT/INR, D-dimer PT 16.2 Seconds (9.4-12.1) H 09/03/16 23:34 - VTE Documentation of Mechanical Device: Intermittent pneumatic compression device Consult Discharge Plan - Plan Referrals: Danitza De Leon RESIDENTIAL SPECIALIST [Advanced Practice Nurse] - 09/12/16 1:00 pm (Please follow up as schedule...)
--- NOTE | 2016-09-08 13:31 | Internal Med Progress Note ---
Date of Encounter: 09/08/16 Time of Encounter: 13:29 - Assessment and plan (1) Acute and chronic respiratory failure with hypercapnia Current Visit: Yes Status: Acute Assessment and plan: Likely multifactorial-secondary to COPD exacerbation combined with CHF decompensation Pt improved clinically with aggressive Diuretic and steroid therapy (continue to taper down steroids) Continue IV steroids and bronchodilator support Continue PO diuretics monitor O2 sat, goal O2 sat: 89-92% monitor daily weights, strict I/Os fluid restricted diet bipap as needed Serial ABG as needed IV abx 2D echo: LVEF 65-70%, normal LV size and systolic function. Indeterminate LV diastolic function. Mild to moderate Mitral regurgitation, moderate-TR, severe pulmonary hypertension Hypercapnia improving, continue bipap support (2) Acute diastolic (congestive) heart failure Current Visit: Yes Status: Acute Assessment and plan: as listed above (3) Acute exacerbation of chronic obstructive airways disease Current Visit: Yes Status: Acute Assessment and plan: as listed above (4) Atrial fibrillation with rapid ventricular response Current Visit: Yes Status: Acute Assessment and plan: Rate controlled with Cardizem ASA for anticoagulation (5) DVT prophylaxis Current Visit: No Status: Acute Assessment and plan: Lovenox SQ (6) Morbid obesity with BMI of 60.0-69.9, adult Current Visit: Yes Status: Chronic (7) TYE (obstructive sleep apnea) Current Visit: No Status: Acute Assessment and plan: bipap at bedtime (8) Hypokalemia Current Visit: Yes Status: Resolved - Subjective Interval history: Patient seen and examined at bedside. Resting in bed and saturating well on nasal cannula. Reports of being more compliant with bipap which is reflective in her BMP values. Will do bipap qualification testing overnight and if remains stable, likely discharge in am. - Constitutional Vitals: Temp Pulse Resp BP Pulse Ox 98.1 F 86 16 148/79 91 09/08/16 11:52 09/08/16 11:52 09/08/16 11:52 09/08/16 11:52 09/08/16 11:52 General appearance: Present: A&O X 3, morbidly obese, no acute distress, answers questions appropriately - Head Head exam: Present: atraumatic, normocephalic - Eye Eye exam: Present: normal appearance, conjuntiva pink, sclera anicteric - Respiratory Respiratory exam: Present: decreased breath sounds. Absent: respiratory distress, wheezes - Cardiovascular Cardiovascular exam: Present: RRR, +S1, +S2. Absent: diastolic murmur, gallop, rubs, systolic murmur - GI/Abdominal GI/Abdominal exam: Present: normal bowel sounds, soft, no peritoneal signs. Absent: distended, tenderness - Extremities Exam Extremities exam: Present: pedal edema, warm, radial pulses palpable and symetrical. Absent: calf tenderness - Neurological Exam Neurological exam: Present: alert, oriented X3 - Psychiatric Psychiatric exam: Present: normal affect, normal mood Internal Medicine: Result - Labs CBC & Chem 7: 09/08/16 03:12 09/08/16 03:12 Labs: Short CBC 09/08/16 Range/Units 03:12 WBC 14.5 H (4.3-11.1) K/mcL Hgb 11.7 (11.5-15.4) g/dL Hct 36.6 (35.3-44.9) % Plt Count 303 (140-400) K/mcL Neutrophils # 12.0 H (1.6-8.9) K/mcL BMP 09/08/16 03:12 Sodium 141 Potassium 4.1 Chloride 93 L Carbon Dioxide 39 H BUN 30 H Creatinine 0.79 Glucose 217 H Calcium 9.2 - ABG Interpretation ABG results: PT/INR, D-dimer PT 16.2 Seconds (9.4-12.1) H 09/03/16 23:34 - VTE Documentation of Mechanical Device: Intermittent pneumatic compression device Consult Discharge Plan - Plan Referrals: Danitza De Leon TECHNICIAN CHEMICAL CLEANING [Advanced Practice Nurse] - 09/12/16 1:00 pm (Please follow up as schedule...)
[2016-09-08] MEDS: Melatonin 3 MG TABLET PO SCH (20:31)
[2016-09-09] MEDS: Ipratropium/Albuterol Neb 3 ML IH SCH ×7 (00:11→23:57)
[2016-09-09 04:56] LABS: Basophils # 0.1 K/mcL (0.0-0.2); Basophils % 0.3 %; Hematocrit 38.3 % (35.3-44.9); Hemoglobin 11.7 g/dL (11.5-15.4); Immature Granulocytes % 4.8 % (0-4); Lymphocytes # 1.1 K/mcL (0.6-4.6); Lymphocytes % 6.6 %; Mean Corpuscular HGB Conc 30.5 g/dL (31.6-35.5); Mean Corpuscular Volume 101.6 fL (83.0-100.0); Mean Platelet Volume 9.9 fL (9.4-12.4); Monocytes # 0.7 K/mcL (0.0-1.3); Neutrophils # 14.2 K/mcL (1.6-8.9); Platelet Count 299 K/mcL (140-400); Red Blood Count 3.77 M/mcL (3.82-4.97); Red Cell Distribution Width 17.2 % (11.5-14.5); Segmented Neutrophils % 84.3 %
[2016-09-09 05:11] LABS: BUN/Creatinine Ratio 36 (6-26); Blood Urea Nitrogen 28 mg/dL (7-20); Calcium 9.2 mg/dL (8.6-10.8); Chloride 93 mEq/L (98-109); Glucose 202 mg/dL (70-99); Magnesium 2.1 mg/dL (1.6-2.6); Osmolality,Calculated 303 (280-300); Phosphorous 4.6 mg/dL (2.3-4.7); Potassium 4.3 mEq/L (3.5-4.5); Sodium 141 mEq/L (136-145); eGFR For African Americans > 60 (> 60); eGFR For Non-African Americans > 60 (> 60)
[2016-09-09 05:24] LABS: Carbon Dioxide 41 mEq/L (19-29)
[2016-09-09] MEDS: *HR* Enoxaparin 40 MG/0.4 ML SYRINGE SQ SCH (05:58)
[2016-09-09] MEDS: Diltiazem CD (24hr) 180 MG CAPSULE PO SCH (07:50)
[2016-09-09] MEDS: Famotidine 20 MG TABLET PO SCH ×2 (07:50→20:27)
[2016-09-09] MEDS: Furosemide 40 MG TABLET PO SCH ×2 (07:50→17:13)
[2016-09-09] MEDS: Nicotine 21 MG PATCH.TD24 TD SCH (07:51)
[2016-09-09] MEDS: Aspirin Enteric Coated 325 MG Tablet PO SCH (07:51)
[2016-09-09] MEDS: Nystatin POWDER 30 GM BOTTLE TP SCH ×3 (08:01→20:28)
[2016-09-09] MEDS: MethylPREDNISolone 40 MG/ML VIAL IVP SCH ×2 (09:56→21:30)
[2016-09-09] MEDS ORDERED: D5% in Water 1,000 ML IVC PRN (11:52)
[2016-09-09] MEDS ORDERED: Dextrose Gel 15 GM PO PRN ×2 (11:52)
[2016-09-09] MEDS ORDERED: *HR* Dextrose 50 % in Water (Syg) 50 ML SYRINGE IVP PRN (11:52)
[2016-09-09 12:17] LABS: Hemoglobin A1C 6.9 %
--- NOTE | 2016-09-09 13:18 | Internal Med Progress Note ---
Date of Encounter: 09/09/16 Time of Encounter: 10:32 - Assessment and plan (1) Acute and chronic respiratory failure with hypercapnia Current Visit: Yes Status: Acute Assessment and plan: Likely multifactorial-secondary to COPD exacerbation combined with CHF decompensation Pt improved clinically with aggressive Diuretic and steroid therapy (continue to taper down steroids) Continue IV steroids and bronchodilator support Continue PO diuretics monitor O2 sat, goal O2 sat: 89-92% monitor daily weights, strict I/Os fluid restricted diet bipap as needed Serial ABG as needed IV abx 2D echo: LVEF 65-70%, normal LV size and systolic function. Indeterminate LV diastolic function. Mild to moderate Mitral regurgitation, moderate-TR, severe pulmonary hypertension Hypercapnia persists continue bipap support Bipap qualification study overnight Depending on clinical response, will switch to PO prednisone in am. Pt will need long Prednisone taper repeat CXR shows improvement with no pleural effusions (2) Acute diastolic (congestive) heart failure Current Visit: Yes Status: Acute Assessment and plan: as listed above (3) Acute exacerbation of chronic obstructive airways disease Current Visit: Yes Status: Acute Assessment and plan: as listed above (4) Atrial fibrillation with rapid ventricular response Current Visit: Yes Status: Acute Assessment and plan: Rate controlled with Cardizem ASA for anticoagulation (5) DVT prophylaxis Current Visit: No Status: Acute Assessment and plan: Lovenox SQ (6) Morbid obesity with BMI of 60.0-69.9, adult Current Visit: Yes Status: Chronic (7) TYE (obstructive sleep apnea) Current Visit: No Status: Acute Assessment and plan: bipap at bedtime (8) Hypokalemia Current Visit: Yes Status: Resolved - Subjective Interval history: Patient seen and examined with family present at bedside. reported of undergoing bipap study overnight due to which she did not wear [place] bipap which is reflective in her BMP this morning. As per respiratory therapist, the bipap study was done inacurately and she will need to redo the study tonight. This was discussed with the patient. she is to remain on bipap during the day with breaks for meals and undergo bipap qualification study overnight. She agrees with the plan and denies any discomfort at this time. - Constitutional Vitals: Temp Pulse Resp BP Pulse Ox 98.3 F 96 18 118/79 92 09/09/16 10:30 09/09/16 10:30 09/09/16 11:28 09/09/16 10:30 09/09/16 11:28 General appearance: Present: A&O X 3, morbidly obese, no acute distress, answers questions appropriately - Head Head exam: Present: atraumatic, normocephalic - Eye Eye exam: Present: normal appearance, conjuntiva pink, sclera anicteric - Respiratory Respiratory exam: Present: decreased breath sounds. Absent: respiratory distress, wheezes, tachypnea - Cardiovascular Cardiovascular exam: Present: RRR, +S1, +S2. Absent: diastolic murmur, gallop, rubs, systolic murmur - GI/Abdominal GI/Abdominal exam: Present: distended (obese), normal bowel sounds, soft, no peritoneal signs. Absent: tenderness - Extremities Exam Extremities exam: Present: pedal edema, warm, radial pulses palpable and symetrical. Absent: calf tenderness - Neurological Exam Neurological exam: Present: alert, oriented X3 - Psychiatric Psychiatric exam: Present: normal affect, normal mood Internal Medicine: Result - Labs CBC & Chem 7: 09/09/16 04:31 09/09/16 04:31 Labs: Short CBC 09/09/16 Range/Units 04:31 WBC 16.8 H (4.3-11.1) K/mcL Hgb 11.7 (11.5-15.4) g/dL Hct 38.3 (35.3-44.9) % Plt Count 299 (140-400) K/mcL Neutrophils # 14.2 H (1.6-8.9) K/mcL BMP 09/09/16 04:31 Sodium 141 Potassium 4.3 Chloride 93 L Carbon Dioxide 41 H* BUN 28 H Creatinine 0.78 Glucose 202 H Calcium 9.2 - ABG Interpretation ABG results: PT/INR, D-dimer PT 16.2 Seconds (9.4-12.1) H 09/03/16 23:34 - Impressions Impressions Chest X-Ray 09/09/16 08:08 IMPRESSION: 1. Persistently enlarged cardiac silhouette. 2. With minimal prominence of the pulmonary vasculature. 3. No convincing evidence of pleural effusion. D/ / Ivan Breaux MD / Ivan Breaux MD Interpreting Provider: Ivan Breaux MD - VTE Documentation of Mechanical Device: Intermittent pneumatic compression device Consult Discharge Plan - Plan Referrals: Danitza De Leon CNP [Advanced Practice Nurse] - 09/12/16 1:00 pm (Please follow up as schedule...)
[2016-09-09] MEDS: Insulin LISPRO 300 UNITS/3 ML VIAL SQ SCH ×2 (17:13→21:28)
[2016-09-09] MEDS: Melatonin 3 MG TABLET PO SCH (20:27)
[2016-09-10] MEDS: Ipratropium/Albuterol Neb 3 ML IH SCH ×5 (03:53→19:48)
[2016-09-10] MEDS: *HR* Enoxaparin 40 MG/0.4 ML SYRINGE SQ SCH (06:12)
[2016-09-10 08:07] LABS: Basophils # 0.1 K/mcL (0.0-0.2); Basophils % 0.3 %; Eosinophils % 0.1 %; Hemoglobin 12.3 g/dL (11.5-15.4); Immature Granulocytes % 4.2 % (0-4); Lymphocytes % 5.9 %; Mean Corpuscular HGB Conc 32.4 g/dL (31.6-35.5); Mean Corpuscular Hemoglobin 31.3 pg (28.0-33.3); Mean Corpuscular Volume 96.7 fL (83.0-100.0); Mean Platelet Volume 10.1 fL (9.4-12.4); Monocytes # 0.7 K/mcL (0.0-1.3); Monocytes % 3.4 %; Neutrophils # 16.7 K/mcL (1.6-8.9); Platelet Count 298 K/mcL (140-400); Red Blood Count 3.93 M/mcL (3.82-4.97); Red Cell Distribution Width 17.2 % (11.5-14.5); Segmented Neutrophils % 86.1 %
[2016-09-10 08:11] LABS: Lymphocytes # 1.1 K/mcL (0.6-4.6)
[2016-09-10 08:23] LABS: BUN/Creatinine Ratio 38 (6-26); Blood Urea Nitrogen 27 mg/dL (7-20); Calcium 9.2 mg/dL (8.6-10.8); Carbon Dioxide 38 mEq/L (19-29); Chloride 95 mEq/L (98-109); Glucose 161 mg/dL (70-99); Magnesium 2.4 mg/dL (1.6-2.6); Osmolality,Calculated 299 (280-300); Phosphorous 4.2 mg/dL (2.3-4.7); Potassium 4.7 mEq/L (3.5-4.5); Sodium 140 mEq/L (136-145); eGFR For African Americans > 60 (> 60); eGFR For Non-African Americans > 60 (> 60)
[2016-09-10] MEDS: Diltiazem CD (24hr) 180 MG CAPSULE PO SCH (10:18)
[2016-09-10] MEDS: Furosemide 40 MG TABLET PO SCH ×2 (10:18→17:14)
[2016-09-10] MEDS: Aspirin Enteric Coated 325 MG Tablet PO SCH (10:19)
[2016-09-10] MEDS: Famotidine 20 MG TABLET PO SCH ×2 (10:19→22:15)
[2016-09-10] MEDS: Nicotine 21 MG PATCH.TD24 TD SCH (10:20)
[2016-09-10] MEDS: Insulin LISPRO 300 UNITS/3 ML VIAL SQ SCH ×4 (10:20→22:18)
[2016-09-10] MEDS: MethylPREDNISolone 40 MG/ML VIAL IVP SCH ×2 (10:20→22:15)
[2016-09-10] MEDS: Nystatin POWDER 30 GM BOTTLE TP SCH ×3 (10:20→22:17)
--- NOTE | 2016-09-10 14:12 | Internal Med Progress Note ---
Date of Encounter: 09/10/16 Time of Encounter: 12:30 - Assessment and plan (1) Acute and chronic respiratory failure with hypercapnia Current Visit: Yes Status: Acute Assessment and plan: Likely multifactorial-secondary to COPD exacerbation combined with CHF decompensation Pt improved clinically with aggressive Diuretic and steroid therapy (continue to taper down steroids-Will start Prednisone in am) Continue steroids and bronchodilator support Continue PO diuretics monitor O2 sat, goal O2 sat: 89-92% monitor daily weights, strict I/Os fluid restricted diet bipap as needed Serial ABG as needed IV abx 2D echo: LVEF 65-70%, normal LV size and systolic function. Indeterminate LV diastolic function. Mild to moderate Mitral regurgitation, moderate-TR, severe pulmonary hypertension Hypercapnia persists, continue bipap support Bipap qualification study overnight (2) Acute diastolic (congestive) heart failure Current Visit: Yes Status: Acute Assessment and plan: as listed above (3) Acute exacerbation of chronic obstructive airways disease Current Visit: Yes Status: Acute Assessment and plan: as listed above (4) Atrial fibrillation with rapid ventricular response Current Visit: Yes Status: Acute Assessment and plan: Rate controlled with Cardizem ASA for anticoagulation (5) DVT prophylaxis Current Visit: No Status: Acute Assessment and plan: Lovenox SQ (6) Morbid obesity with BMI of 60.0-69.9, adult Current Visit: Yes Status: Chronic (7) TYE (obstructive sleep apnea) Current Visit: No Status: Acute Assessment and plan: bipap at bedtime (8) Hypokalemia Current Visit: Yes Status: Resolved - Subjective Interval history: Patient seen and examined at bedside. Noted to refuse bipap during the day yesterday. Currently in agreement to using bipap. Unable to do the bipap study overnight and will be obtained tonight. Pt clinically improving. Bipap study overnight and likely d/c in am. - Constitutional Vitals: Temp Pulse Resp BP Pulse Ox 98.2 F 73 18 114/77 96 09/10/16 12:05 09/10/16 12:05 09/10/16 12:05 09/10/16 12:05 09/10/16 12:05 General appearance: Present: A&O X 3, morbidly obese, no acute distress, answers questions appropriately - Head Head exam: Present: atraumatic, normocephalic - Eye Eye exam: Present: normal appearance, conjuntiva pink, sclera anicteric - Respiratory Respiratory exam: Present: decreased breath sounds. Absent: respiratory distress, wheezes Additional comments: equal air entry bilaterally-improved from previous day - Cardiovascular Cardiovascular exam: Present: RRR, +S1, +S2. Absent: diastolic murmur, gallop, rubs, systolic murmur - GI/Abdominal GI/Abdominal exam: Present: normal bowel sounds, soft, no peritoneal signs. Absent: distended, tenderness - Extremities Exam Extremities exam: Present: pedal edema, warm, radial pulses palpable and symetrical. Absent: calf tenderness - Neurological Exam Neurological exam: Present: alert, oriented X3 - Psychiatric Psychiatric exam: Present: normal affect, normal mood Internal Medicine: Result - Labs CBC & Chem 7: 09/10/16 07:57 09/10/16 07:57 Labs: Short CBC 09/10/16 Range/Units 07:57 WBC 19.4 H (4.3-11.1) K/mcL Hgb 12.3 (11.5-15.4) g/dL Hct 38.0 (35.3-44.9) % Plt Count 298 (140-400) K/mcL Neutrophils # 16.7 H (1.6-8.9) K/mcL BMP 09/10/16 07:57 Sodium 140 Potassium 4.7 H Chloride 95 L Carbon Dioxide 38 H BUN 27 H Creatinine 0.72 Glucose 161 H Calcium 9.2 - ABG Interpretation ABG results: PT/INR, D-dimer PT 16.2 Seconds (9.4-12.1) H 09/03/16 23:34 - VTE Documentation of Mechanical Device: Intermittent pneumatic compression device Consult Discharge Plan - Plan Referrals: Danitza De Leon PAID SEARCH MARKETING ANALYST [Advanced Practice Nurse] - 09/12/16 1:00 pm (Please follow up as schedule...)
[2016-09-10] MEDS: Melatonin 3 MG TABLET PO SCH (22:15)
[2016-09-10] MEDS: Acetaminophen 325 MG TABLET PO PRN (22:53)
[2016-09-11] MEDS: Ipratropium/Albuterol Neb 3 ML IH SCH ×7 (00:13→23:05)
[2016-09-11] MEDS: *HR* Enoxaparin 40 MG/0.4 ML SYRINGE SQ SCH (05:49)
[2016-09-11 06:12] LABS: Basophils # 0.1 K/mcL (0.0-0.2); Basophils % 0.3 %; Hematocrit 38.4 % (35.3-44.9); Hemoglobin 12.1 g/dL (11.5-15.4); Immature Granulocytes % 3.8 % (0-4); Lymphocytes % 5.2 %; Mean Corpuscular HGB Conc 31.5 g/dL (31.6-35.5); Mean Corpuscular Hemoglobin 31.3 pg (28.0-33.3); Mean Corpuscular Volume 99.2 fL (83.0-100.0); Mean Platelet Volume 9.9 fL (9.4-12.4); Monocytes # 0.5 K/mcL (0.0-1.3); Monocytes % 2.3 %; Neutrophils # 17.7 K/mcL (1.6-8.9); Platelet Count 310 K/mcL (140-400); Red Blood Count 3.87 M/mcL (3.82-4.97); Red Cell Distribution Width 17.3 % (11.5-14.5); Segmented Neutrophils % 88.4 %
[2016-09-11 06:22] LABS: BUN/Creatinine Ratio 37 (6-26); Blood Urea Nitrogen 27 mg/dL (7-20); Carbon Dioxide 36 mEq/L (19-29); Chloride 94 mEq/L (98-109); Glucose 201 mg/dL (70-99); Magnesium 2.3 mg/dL (1.6-2.6); Osmolality,Calculated 299 (280-300); Phosphorous 4.6 mg/dL (2.3-4.7); Potassium 4.5 mEq/L (3.5-4.5); Sodium 139 mEq/L (136-145); eGFR For African Americans > 60 (> 60); eGFR For Non-African Americans > 60 (> 60)
[2016-09-11] MEDS: Diltiazem CD (24hr) 180 MG CAPSULE PO SCH (08:21)
[2016-09-11] MEDS: Furosemide 40 MG TABLET PO SCH ×2 (08:22→16:47)
[2016-09-11] MEDS: Aspirin Enteric Coated 325 MG Tablet PO SCH (08:22)
[2016-09-11] MEDS: predniSONE 20 MG TABLET PO SCH (08:22)
[2016-09-11] MEDS: Famotidine 20 MG TABLET PO SCH ×2 (08:22→21:23)
[2016-09-11] MEDS: Nystatin POWDER 30 GM BOTTLE TP SCH ×3 (08:23→21:24)
[2016-09-11] MEDS: Insulin LISPRO 300 UNITS/3 ML VIAL SQ SCH ×4 (08:23→21:24)
[2016-09-11] MEDS: Nicotine 21 MG PATCH.TD24 TD SCH (08:23)
--- NOTE | 2016-09-11 14:48 | Internal Med Progress Note ---
Date of Encounter: 09/11/16 Time of Encounter: 11:20 - Assessment and plan (1) Acute and chronic respiratory failure with hypercapnia Current Visit: Yes Status: Acute Assessment and plan: Likely multifactorial-secondary to COPD exacerbation combined with CHF decompensation Started Prednisone, will continue long taper Continue steroids and bronchodilator support Continue PO diuretics monitor O2 sat, goal O2 sat: 89-92% monitor daily weights, strict I/Os fluid restricted diet bipap as needed Serial ABG as needed IV abx 2D echo: LVEF 65-70%, normal LV size and systolic function. Indeterminate LV diastolic function. Mild to moderate Mitral regurgitation, moderate-TR, severe pulmonary hypertension Hypercapnia improving, currently at baseline discharge pending Bipap arrangement (2) Acute diastolic (congestive) heart failure Current Visit: Yes Status: Acute Assessment and plan: as listed above (3) Acute exacerbation of chronic obstructive airways disease Current Visit: Yes Status: Acute Assessment and plan: as listed above (4) Atrial fibrillation with rapid ventricular response Current Visit: Yes Status: Acute Assessment and plan: Rate controlled with Cardizem ASA for anticoagulation (5) DVT prophylaxis Current Visit: No Status: Acute Assessment and plan: Lovenox SQ (6) Morbid obesity with BMI of 60.0-69.9, adult Current Visit: Yes Status: Chronic (7) TYE (obstructive sleep apnea) Current Visit: No Status: Acute Assessment and plan: bipap at bedtime (8) Hypokalemia Current Visit: Yes Status: Resolved - Subjective Interval history: Patient seen and examined at bedside. Qualified for home bipap. Currently saturating well on nasal cannula. Discharge pending home bipap arrangement Pt wearing the bipap at bedtime - Constitutional Vitals: Temp Pulse Resp BP Pulse Ox 97.9 F 79 16 123/77 93 09/11/16 10:54 09/11/16 10:54 09/11/16 11:39 09/11/16 10:54 09/11/16 11:39 General appearance: Present: A&O X 3, morbidly obese, no acute distress, answers questions appropriately - Head Head exam: Present: atraumatic, normocephalic - Eye Eye exam: Present: normal appearance, conjuntiva pink, sclera anicteric - Respiratory Respiratory exam: Absent: respiratory distress, wheezes - Cardiovascular Cardiovascular exam: Present: RRR, +S1, +S2. Absent: diastolic murmur, gallop, rubs, systolic murmur - GI/Abdominal GI/Abdominal exam: Present: normal bowel sounds, soft, no peritoneal signs. Absent: distended, tenderness - Extremities Exam Extremities exam: Present: pedal edema, warm, radial pulses palpable and symetrical. Absent: calf tenderness - Neurological Exam Neurological exam: Present: alert, oriented X3 - Psychiatric Psychiatric exam: Present: normal affect, normal mood Internal Medicine: Result - Labs CBC & Chem 7: 09/11/16 05:15 09/11/16 05:15 Labs: Short CBC 09/11/16 Range/Units 05:15 WBC 20.0 H (4.3-11.1) K/mcL Hgb 12.1 (11.5-15.4) g/dL Hct 38.4 (35.3-44.9) % Plt Count 310 (140-400) K/mcL Neutrophils # 17.7 H (1.6-8.9) K/mcL BMP 09/11/16 05:15 Sodium 139 Potassium 4.5 Chloride 94 L Carbon Dioxide 36 H BUN 27 H Creatinine 0.73 Glucose 201 H Calcium 9.0 - ABG Interpretation ABG results: PT/INR, D-dimer PT 16.2 Seconds (9.4-12.1) H 09/03/16 23:34 - VTE Documentation of Mechanical Device: Intermittent pneumatic compression device Consult Discharge Plan - Plan Referrals: Danitza De Leon SEED BUYER [Advanced Practice Nurse] - 09/12/16 1:00 pm (Please follow up as schedule...)
[2016-09-11] MEDS: Melatonin 3 MG TABLET PO SCH (21:23)
[2016-09-11] MEDS: Acetaminophen 325 MG TABLET PO PRN (21:38)
[2016-09-12] MEDS: Ipratropium/Albuterol Neb 3 ML IH SCH ×3 (03:49→11:06)
[2016-09-12 05:02] LABS: Basophils # 0.1 K/mcL (0.0-0.2); Basophils % 0.3 %; Eosinophils % 0.1 %; Hematocrit 36.3 % (35.3-44.9); Hemoglobin 11.4 g/dL (11.5-15.4); Immature Granulocytes % 2.5 % (0-4); Lymphocytes # 2.2 K/mcL (0.6-4.6); Lymphocytes % 11.1 %; Mean Corpuscular HGB Conc 31.4 g/dL (31.6-35.5); Mean Corpuscular Hemoglobin 31.8 pg (28.0-33.3); Mean Corpuscular Volume 101.1 fL (83.0-100.0); Mean Platelet Volume 10.2 fL (9.4-12.4); Monocytes # 1.1 K/mcL (0.0-1.3); Monocytes % 5.6 %; Neutrophils # 15.6 K/mcL (1.6-8.9); Platelet Count 287 K/mcL (140-400); Red Blood Count 3.59 M/mcL (3.82-4.97); Red Cell Distribution Width 17.5 % (11.5-14.5); Segmented Neutrophils % 80.4 %
[2016-09-12 05:15] LABS: BUN/Creatinine Ratio 41 (6-26); Blood Urea Nitrogen 31 mg/dL (7-20); Calcium 8.9 mg/dL (8.6-10.8); Carbon Dioxide 37 mEq/L (19-29); Chloride 97 mEq/L (98-109); Glucose 99 mg/dL (70-99); Magnesium 2.3 mg/dL (1.6-2.6); Osmolality,Calculated 301 (280-300); Phosphorous 4.6 mg/dL (2.3-4.7); Potassium 4.1 mEq/L (3.5-4.5); Sodium 142 mEq/L (136-145); eGFR For African Americans > 60 (> 60); eGFR For Non-African Americans > 60 (> 60)
[2016-09-12] MEDS: *HR* Enoxaparin 40 MG/0.4 ML SYRINGE SQ SCH (06:12)
[2016-09-12] MEDS: Insulin LISPRO 300 UNITS/3 ML VIAL SQ SCH ×2 (08:22→11:44)
[2016-09-12] MEDS: predniSONE 20 MG TABLET PO SCH (08:25)
[2016-09-12] MEDS: Aspirin Enteric Coated 325 MG Tablet PO SCH (08:26)
[2016-09-12] MEDS: Famotidine 20 MG TABLET PO SCH (08:26)
[2016-09-12] MEDS: Nystatin POWDER 30 GM BOTTLE TP SCH (08:27)
[2016-09-12] MEDS: Nicotine 21 MG PATCH.TD24 TD SCH (08:27)
[2016-09-12] MEDS ORDERED: 0.9 % Sodium Chloride 250 ML ONE (08:47)
[2016-09-12 10:18] LABS: ABG Base Excess 12.4 mEq/L (-2.0 to 3.0); ABG HCO3 38.7 mEQ/L (21-27); ABG Oxygen Saturation 96 % (95-98); ABG PCO2 57 mmHg (35-45); ABG PH 7.44 pH Units (7.32-7.45); ABG PO2 80 mmHg (85-104); ABG TCO2 40.4 mEq/L (20-26); Blood Gas Liter Flow 4 L/MIN
--- NOTE | 2016-09-12 11:03 | Discharge Summary ---
Date of Encounter: 09/12/16 Time of Encounter: 09:30 - Discharge Diagnosis (1) Acute and chronic respiratory failure with hypercapnia Priority: Primary Status: Acute (2) Acute diastolic (congestive) heart failure Priority: Secondary Status: Acute (3) Acute exacerbation of chronic obstructive airways disease Priority: Primary Status: Acute (4) Atrial fibrillation with rapid ventricular response Priority: Secondary Status: Chronic (5) DVT prophylaxis Priority: Secondary Status: Acute (6) Morbid obesity with BMI of 60.0-69.9, adult Priority: Secondary Status: Chronic (7) TYE (obstructive sleep apnea) Priority: Secondary Status: Chronic (8) Hypokalemia Priority: Secondary Status: Resolved - Discharge Medications Prescriptions: Pseudoephedrine [Sudafed] 30 mg PO Q4HR PRN #20 tablet PRN Reason: Congestion Furosemide [Lasix] 40 mg PO BIDDIURETIC #20 tablet Home Medications: Aclidinium [place] [Tudorza Pressair] 1 puff IH BID 09/08/15 [History] Albuterol Sulfate [Proair Hfa] 2 puff IH Q4H PRN 09/08/15 [History] Budesonide/Formoterol 160/4.5 [Symbicort 160/4.5] 2 puff IH BIDR 09/08/15 [ History] Simvastatin [Zocor] 40 mg PO HS 09/08/15 [History] Aspirin 325 mg PO DAILY #60 tablet 09/19/15 [Rx] Diltiazem CD (24hr) [Cardizem CD] 360 mg PO DAILY #30 cap.er.24h 09/19/15 [Rx] Metoprolol [Lopressor] 50 mg PO BID #60 tablet 09/19/15 [Rx] Albuterol Neb [Proventil Neb] 2.5 mg IH Q4HR 07/05/16 [History] Furosemide [Lasix] 40 mg PO BIDDIURETIC #20 tablet 09/12/16 [Rx] Pseudoephedrine [Sudafed] 30 mg PO Q4HR PRN #20 tablet 09/12/16 [Rx] Allergies/Adverse Reactions: Allergies Penicillins Allergy (Verified 09/03/16 22:33) Rash Date of admission: 09/05/16 08:09 Primary care physician: PCP NO Discharging clinician: Francesca Xavier Anticipated date of discharge: 09/12/16 - Patient Status Disposition: Home Health Service Condition: Fair Functional capacity at discharge: uses cane/walker Overall status at discharge: patient is back to baseline - Discharge Instructions Follow Up With: Danitza De Leon CNP [Advanced Practice Nurse] - 09/19/16 9:45 am (Please follow up as schedule...) Additional Instructions: Please follow up with your primary care physician within one week after your discharge from the hospital. Please follow up with pulmonology on September 27 at 345pm. Please continue Prednisone as prescribed. Your home dose of lasix has been changed to twice a day. Closely monitor your blood pressure. Hold Metoprolol if your SBP<120. Hold Lasix dose if your SBP<100 Resume all other home medications as prescribed by your primary care physician. Continue bipap support as needed during the day continue bipap support at night. - Diet and Activity Activity: as per physical therapy, wear oxygen at all times Diet: low fat, low cholesterol, low salt diet Hospital course: Ms. Mccormick is a 55 year old female with PMH of COPD on LTOT, CHF, HLD, Afib, morbid obesity who was admitted for management of respiratory failure secondary to COPD exacerbation and CHF decompensation. She was started on systemic steroids, IV diuretic therapy, IV abx, and bipap support to which she responded well. She was noted to have persistent hypercapnia and responded well to bipap support. She qualified for home bipap and will be discharged with bipap. She was noted to be hypotensive but remained clinically asymptomatic. Her repeat BP at this time is 105/70 and she is breathing comfortably on nasal cannula. She is hemodynamically stable and in no respiratory distress. She will be discharged to home with follow up with PCP and Pulmonology. Patient demonstrates understanding of her diagnosis and agree with the discharge care and plan. - Time Spent with Patient Total time spent providing and/or coordinating discharge services: Greater than 30 minutes - Constitutional Vitals: Temp Pulse Resp BP Pulse Ox 98.0 F 74 18 89/63 98 09/12/16 07:44 09/12/16 07:44 09/12/16 07:44 09/12/16 07:44 09/12/16 07:44 General appearance: Present: A&O X 3, morbidly obese, no acute distress, answers questions appropriately - Head Head exam: Present: atraumatic, normocephalic - Eye Eye exam: Present: normal appearance, conjuntiva pink, sclera anicteric - Respiratory Respiratory exam: Present: CTAB. Absent: accessory muscle use, rales, rhonchi, wheezes - Cardiovascular Cardiovascular exam: Present: RRR, +S1, +S2. Absent: diastolic murmur, gallop, rubs, systolic murmur - GI/Abdominal GI/Abdominal exam: Present: normal bowel sounds, soft, no peritoneal signs. Absent: distended, tenderness - Extremities Exam Extremities exam: Present: pedal edema, warm, radial pulses palpable and symetrical. Absent: calf tenderness - Neurological Exam Neurological exam: Present: alert, oriented X3 - Psychiatric Psychiatric exam: Present: normal affect, normal mood - VTE Documentation of Mechanical Device: Intermittent pneumatic compression device
[2016-09-12 11:12] VITALS: BP 96/69
--- NOTE | 2016-09-12 11:15 | Physician Discharge Referral ---
Home Health/Hosp Referral Info Transfer to: Home Health Provider in Charge Post Discharge: PCP - Diagnosis (1) Acute and chronic respiratory failure with hypercapnia Priority: Primary Status: Acute (2) Acute diastolic (congestive) heart failure Priority: Secondary Status: Acute (3) Acute exacerbation of chronic obstructive airways disease Priority: Primary Status: Acute (4) Atrial fibrillation with rapid ventricular response Priority: Secondary Status: Chronic (5) DVT prophylaxis Priority: Secondary Status: Acute (6) Morbid obesity with BMI of 60.0-69.9, adult Priority: Secondary Status: Chronic (7) TYE (obstructive sleep apnea) Priority: Secondary Status: Chronic (8) Hypokalemia Priority: Secondary Status: Resolved - Respiratory Orders Smoking Cessation: Smoking cessation has been advised. For more information, call the [employer] Quit Line at 2-173-PNHZ-NOW. - Services Needed Following services are medically necessary services: Nursing, Home Health Aide, Physical Therapy, Occupational Therapy - Transfer Medications Prescriptions: Pseudoephedrine [Sudafed] 30 mg PO Q4HR PRN #20 tablet PRN Reason: Congestion Furosemide [Lasix] 40 mg PO BIDDIURETIC #20 tablet Home Medications: Aclidinium [place] [Tudorza Pressair] 1 puff IH BID 09/08/15 [History] Albuterol Sulfate [Proair Hfa] 2 puff IH Q4H PRN 09/08/15 [History] Budesonide/Formoterol 160/4.5 [Symbicort 160/4.5] 2 puff IH BIDR 09/08/15 [ History] Simvastatin [Zocor] 40 mg PO HS 09/08/15 [History] Aspirin 325 mg PO DAILY #60 tablet 09/19/15 [Rx] Diltiazem CD (24hr) [Cardizem CD] 360 mg PO DAILY #30 cap.er.24h 09/19/15 [Rx] Metoprolol [Lopressor] 50 mg PO BID #60 tablet 09/19/15 [Rx] Albuterol Neb [Proventil Neb] 2.5 mg IH Q4HR 07/05/16 [History] Furosemide [Lasix] 40 mg PO BIDDIURETIC #20 tablet 09/12/16 [Rx] Pseudoephedrine [Sudafed] 30 mg PO Q4HR PRN #20 tablet 09/12/16 [Rx] Allergies/Adverse Reactions: Allergies Penicillins Allergy (Verified 04/29/17 22:33) Rash Certification: Further, I certify that my clinical findings support that this patient is homebound (i.e. absences from home require considerable and taxing effort and are for medical reasons or bahai services or infrequently or short duration when for other reasons) because: Homebound Reason: Patient requires assistance of a person or device to safely leave home Attestation: My signature below is to certify that this patient is under my care and that I, or nurse practitioner, or a physician's personal assistant working with me, has a face-to -face encounter with this patient.
[2016-09-12] MEDS: Diltiazem CD (24hr) 180 MG CAPSULE PO SCH (11:42)
[2016-09-12] MEDS: Furosemide 40 MG TABLET PO SCH (11:42)
== END 2016-09-12 14:10 | disposition home health service (06) | DRG 140 ==
LOC: EMEROO 22:31 → 2ANU 22:31
PROVIDERS: ADMIT Internal Medicine; ATTEND Internal Medicine

== ENCOUNTER 2016-12-05 | Inpatient (IN) ==
[2016-12-05] MEDS ORDERED: Furosemide 40 MG/4 ML VIAL IVP ONE (00:13)
[2016-12-05] MEDS ORDERED: Ipratropium/Albuterol Neb 3 ML IH ONE (00:13)
[2016-12-05] MEDS ORDERED: methylPREDNISolone 125 MG/2 ML VIAL IVP ONE (00:13)
--- NOTE | 2016-12-05 00:23 | Emergency Department Note ---
Disposition Clinical Impression: Acute exacerbation of chronic obstructive airways disease, Infestation by bed bug Atrial fibrillation Qualifiers: Atrial fibrillation type: chronic Qualified Code(s): I48.2 - Chronic atrial fibrillation Congestive heart failure Qualifiers: Congestive heart failure type: unspecified congestive heart failure type Congestive heart failure chronicity: acute on chronic Qualified Code(s): I50.9 - Heart failure, unspecified Anemia Qualifiers: Anemia type: unspecified type Qualified Code(s): D64.9 - Anemia, unspecified Disposition: Admitted As Inpatient Condition: Fair Forms: ED Satisfaction Letter SOB HPI - General Chief Complaint: ED Shortness of Breath/Dyspnea Stated Complaint: MARICEL Time Seen by Provider: 12/05/16 00:11 Source: patient, family, EMS Mode of arrival: EMS - Related Data Home Medications Medication Instructions Recorded Confirmed Aclidinium [place] [Tudorza 1 puff IH BID 09/08/15 09/04/16 Pressair] Albuterol Sulfate [Proair Hfa] 2 puff IH Q4H PRN 09/08/15 09/04/16 Budesonide/Formoterol 160/4.5 2 puff IH BIDR 09/08/15 09/04/16 [Symbicort 160/4.5] Simvastatin [Zocor] 40 mg PO HS 09/08/15 09/04/16 Albuterol Neb [Proventil Neb] 2.5 mg IH Q4HR 07/05/16 09/04/16 Previous Rx's Medication Instructions Recorded Aspirin 325 mg PO DAILY #60 tablet 09/19/15 Diltiazem CD (24hr) [Cardizem CD] 360 mg PO DAILY #30 cap.er.24h 09/19/15 Metoprolol [Lopressor] 50 mg PO BID #60 tablet 09/19/15 Furosemide [Lasix] 40 mg PO BIDDIURETIC #20 tablet 09/12/16 Pseudoephedrine [Sudafed] 30 mg PO Q4HR PRN #20 tablet 09/12/16 Allergies Allergy/AdvReac Type Severity Reaction Status Date / Time Penicillins Allergy Rash Verified 09/03/16 22:33 Past Medical History - Past Medical History Medical history: Reports: arthritis, asthma, atrial fibrillation, CHF, COPD ( OHS. TYE. O2 dep chronic respiratory failure.), diabetes, GERD, hyperlipidemia, hypertension, osteoporosis, valvular heart disease, other Surgical history: Reports: non-contributory, other Psychiatric history: Reports: no psych history, other - Social History Smoking Status: Current every day smoker Smokeless Tobacco Status: No Alcohol use: Reports: rarely Drug use: Reports: none, unknown Course Course Narrative: Patient presents by squad for treatment of "COPD exacerbation." She states that she has had trouble breathing for the past two days. She also describes chest heaviness that has been constant for the past two days. She denies radiation of this heaviness. She denies numbness or tingling in the extremities. She has had increased lower extremity edema. She denies cough, fever, chills, nausea or vomiting. Per EMS, the patient has a current active bedbug infestation. She has multiple excoriation dorado on her extremities, but no signs of cellulitis. She has diffuse wheezing and decreased air movement bilaterally. She has 2+ pitting edema bilateral feet, knees. Legs do appear to be symmetric. Labs, EKG and x-ray have been ordered. Patient is receiving a DuoNeb treatment that the paramedics started. Another DuoNeb has been ordered as well as Solu-Medrol. Patient's EKG shows atrial fibrillation. This is unchanged compared to previous. Chest x-ray shows stable cardiomegaly and pulmonary vascular congestion. BNP is elevated. H&H are lower than usual. Patient does not have history of anemia. Renal function is normal. Troponin is normal. Oxygen saturation has been above 96% on 2 L. Since receiving the DuoNeb treatments. She has symptomatic improvement. However, given the extensive lower extremity pitting edema, as well as her history of previous respiratory failure. I do feel that this two day COPD exacerbation will not be remedied by one dose of steroids and two DuoNebs. Case was discussed with Dr. Herrera. He has seen the patient and agrees with the assessment and plan to admit. Hospitalist has been contacted. Shortness of Breath/Dyspnea - Medical Records Medical records reviewed: Yes I reviewed the patient's medical records. - Lab Data Lab results reviewed: Yes I reviewed the patient's lab results. Lab results narrative: Laboratory Last Values WBC 11.1 K/mcL (4.3-11.1) 12/05/16 00:58 RBC 3.07 M/mcL (3.82-4.97) L 12/05/16 00:58 Hgb 9.0 g/dL (11.5-15.4) L 12/05/16 00:58 Hct 30.2 % (35.3-44.9) L 12/05/16 00:58 MCV 98.4 fL (83.0-100.0) 12/05/16 00:58 MCH 29.3 pg (28.0-33.3) 12/05/16 00:58 MCHC 29.8 g/dL (31.6-35.5) L 12/05/16 00:58 RDW 15.6 % (11.5-14.5) H 12/05/16 00:58 Plt Count 378 K/mcL (140-400) 12/05/16 00:58 MPV 9.2 fL (9.4-12.4) L 12/05/16 00:58 Immature Gran % 0.7 % (0-4) 12/05/16 00:58 Seg Neutrophils % 80.6 % 12/05/16 00:58 Lymphocytes % 9.9 % 12/05/16 00:58 Monocytes % 6.0 % 12/05/16 00:58 Eosinophils % 2.5 % 12/05/16 00:58 Basophils % 0.3 % 12/05/16 00:58 Neutrophils # 8.9 K/mcL (1.6-8.9) 12/05/16 00:58 Lymphocytes # 1.1 K/mcL (0.6-4.6) 12/05/16 00:58 Monocytes # 0.7 K/mcL (0.0-1.3) 12/05/16 00:58 Eosinophils # 0.3 K/mcL (0.0-0.6) 12/05/16 00:58 Basophils # 0.0 K/mcL (0.0-0.2) 12/05/16 00:58 Nucleated RBCs/100 WBC 0.5 /100 WBC (0) H 12/05/16 00:58 Sodium 142 mEq/L (136-145) 12/05/16 00:58 Potassium 3.9 mEq/L (3.5-4.5) 12/05/16 00:58 Chloride 104 mEq/L (98-109) 12/05/16 00:58 Carbon Dioxide 29 mEq/L (19-29) 12/05/16 00:58 BUN 17 mg/dL (7-20) 12/05/16 00:58 Creatinine 0.78 mg/dL (0.57-1.11) 12/05/16 00:58 Est GFR ( Amer) > 60 (> 60) 12/05/16 00:58 Est GFR (Non-Af Amer) > 60 (> 60) 12/05/16 00:58 BUN/Creatinine Ratio 22 (6-26) 12/05/16 00:58 Glucose 137 mg/dL (70-99) H 12/05/16 00:58 Calculated Osmolality 298 (280-300) 12/05/16 00:58 Calcium 8.8 mg/dL (8.6-10.8) 12/05/16 00:58 Total Bilirubin 0.4 mg/dL (0.2-1.2) 12/05/16 00:58 Direct Bilirubin 0.2 mg/dL (0.0-0.5) 12/05/16 00:58 Indirect Bilirubin 0.2 mg/dL (0.0-1.2) 12/05/16 00:58 AST 17 Units/L (5-34) 12/05/16 00:58 ALT 11 Units/L (0-55) 12/05/16 00:58 Alkaline Phosphatase 93 Units/L (38-126) 12/05/16 00:58 Troponin I 0.00 ng/mL (0-0.03) 12/05/16 00:58 B-Natriuretic Peptide 471 pg/mL (0-100) H 12/05/16 00:58 Serum Total Protein 7.2 g/dL (6.0-8.3) 12/05/16 00:58 Albumin 2.7 g/dL (3.5-5.0) L 12/05/16 00:58 Globulin 4.5 g/dL (2.4-3.5) H 12/05/16 00:58 Albumin/Globulin Ratio 0.6 (1.1-2.2) L 12/05/16 00:58 - Radiology Data Radiology results reviewed: Yes I reviewed the patient's radiology results. Chest X-Ray 12/05/16 00:13 IMPRESSION: Stable cardiomegaly and pulmonary vascular congestion. D/ / Tami Mckeon MD / Tami Mckeon MD Interpreting Provider: Tami Mckeon MD - EKG Data EKG attestation: Yes I reviewed and interpreted this EKG. Rate: Reports: normal Rhythm: Reports: A.Fib When compared to previous EKG there are: no significant changes Interpretation: Reports: unchanged when compared to prior tracing (date), nonspecific ST-T wave changes
[2016-12-05 01:03] LABS: Basophils % 0.3 %; Eosinophils # 0.3 K/mcL (0.0-0.6); Eosinophils % 2.5 %; Hematocrit 30.2 % (35.3-44.9); Immature Granulocytes % 0.7 % (0-4); Lymphocytes # 1.1 K/mcL (0.6-4.6); Lymphocytes % 9.9 %; Mean Corpuscular HGB Conc 29.8 g/dL (31.6-35.5); Mean Corpuscular Hemoglobin 29.3 pg (28.0-33.3); Mean Corpuscular Volume 98.4 fL (83.0-100.0); Mean Platelet Volume 9.2 fL (9.4-12.4); Monocytes # 0.7 K/mcL (0.0-1.3); Neutrophils # 8.9 K/mcL (1.6-8.9); Nucleated Red Blood Cells 0.5 /100 WBC (0); Platelet Count 378 K/mcL (140-400); Red Blood Count 3.07 M/mcL (3.82-4.97); Red Cell Distribution Width 15.6 % (11.5-14.5); Segmented Neutrophils % 80.6 %
[2016-12-05 01:19] LABS: Alanine Aminotransferase 11 Units/L (0-55); Albumin 2.7 g/dL (3.5-5.0); Albumin/Globulin Ratio 0.6 (1.1-2.2); Alkaline Phosphatase 93 Units/L (38-126); Aspartate Amino Transferase 17 Units/L (5-34); BUN/Creatinine Ratio 22 (6-26); Bilirubin,Direct 0.2 mg/dL (0.0-0.5); Bilirubin,Indirect 0.2 mg/dL (0.0-1.2); Bilirubin,Total 0.4 mg/dL (0.2-1.2); Blood Urea Nitrogen 17 mg/dL (7-20); Calcium 8.8 mg/dL (8.6-10.8); Carbon Dioxide 29 mEq/L (19-29); Chloride 104 mEq/L (98-109); Globulin 4.5 g/dL (2.4-3.5); Glucose 137 mg/dL (70-99); Osmolality,Calculated 298 (280-300); Potassium 3.9 mEq/L (3.5-4.5); Sodium 142 mEq/L (136-145); Total Protein 7.2 g/dL (6.0-8.3); eGFR For African Americans > 60 (> 60); eGFR For Non-African Americans > 60 (> 60)
--- NOTE | 2016-12-05 01:32 | Emergency Department Note ---
START Narrative - START START: I examined this patient and my medical decision-making was reviewed with the Resident Physician. I agree with the documented findings, disposition and treatment plan as described except to the extent set forth below. 55-year-old female presents emergency room for shortness of breath. Patient has a history of COPD, active smoker, congestive heart failure. Patient was also found to have bedbugs upon arrival. Patient be admitted for further COPD treatment.
[2016-12-05] MEDS ORDERED: Ipratropium/Albuterol Neb 3 ML IH PRN (02:28)
[2016-12-05] MEDS ORDERED: Naloxone 0.4 MG/ML INJ IVP PRN (02:29)
--- NOTE | 2016-12-05 02:35 | Internal Med History&Physical ---
Date of Encounter: 12/05/16 Time of Encounter: 02:32 Assessment and Plan (1) Acute exacerbation of chronic obstructive airways disease Current visit: Yes Status: Acute duoneb, IV solumedrol, azithromycin (2) CHF (congestive heart failure) Current visit: No Status: Suspected I&O, lasix BID 40mg IV, trend Cr Qualifiers: Congestive heart failure type: diastolic Congestive heart failure chronicity: chronic Qualified Code(s): I50.32 - Chronic diastolic (congestive ) heart failure (3) Acute and chronic respiratory failure Current visit: No Status: Acute uses CPAP evening, NC daytime, treat CHF and COPD Qualifiers: Respiratory failure complication: hypoxia and hypercapnia Qualified Code(s) : J96.21 - Acute and chronic respiratory failure with hypoxia; J96.22 - Acute and chronic respiratory failure with hypercapnia (4) Atrial fibrillation Current visit: Yes Status: Acute continue cardiac meds. Not on AC at home Qualifiers: Atrial fibrillation type: chronic Qualified Code(s): I48.2 - Chronic atrial fibrillation (5) Tobacco use disorder Current visit: No Status: Acute cessation discussed. trial of nicotine patch Internal Medicine - H&P: HPI Chief complaint: SOB History of present illness: Ms. Mccormick is a 55 year old female with hx of AFib, COPD, CHF, Morbid obesity, who presents with acute on chronic respiratory failure 2/2 COPD and CHF exacerbation. At baseline, she uses 2.5 L NC daytime and CPAP qHS. In the last few days, she developed worsening SOB at rest, worse on exertion and needing to bump up her oxygen requirement and duration. She also noticed that she was not urinating as much as prior while on home 40mg BID lasix. She still smokes and requested trial of nicotine patch. In the ED, EKG reviewed by self with AFib rate 96, CXR with interstitial edema. Past Med Surg Social Fam HX - Past Medical History Medical history: arthritis, asthma, atrial fibrillation, CHF, COPD (OHS. TYE. O2 dep chronic respiratory failure.), diabetes, GERD, hyperlipidemia, hypertension, osteoporosis, valvular heart disease, other Psychiatric history: no psych history, other - Past Surgical History Surgical History: non-contributory, other - Social History Smoking Status: Current every day smoker Smokeless Tobacco Status: No Alcohol use: rarely Drug use: none, unknown - Family History Mother Living Status: Hx Family Cardiac Disorders: Yes Hx Family Endocrine Disorder: Yes (Hypothyroid, DM) Father Living Status: Hx Family Respiratory Disorders: Yes (Asthma, COPD, Emphysema) Internal Medicine - H&P: Meds Aclidinium [place] [Tudorza Pressair] 1 puff IH BID 09/08/15 [History] Albuterol Sulfate [Proair Hfa] 2 puff IH Q4H PRN 09/08/15 [History] Budesonide/Formoterol 160/4.5 [Symbicort 160/4.5] 2 puff IH BIDR 09/08/15 [ History] Simvastatin [Zocor] 40 mg PO HS 09/08/15 [History] Aspirin 325 mg PO DAILY #60 tablet 09/19/15 [Rx] Diltiazem CD (24hr) [Cardizem CD] 360 mg PO DAILY #30 cap.er.24h 09/19/15 [Rx] Metoprolol [Lopressor] 50 mg PO BID #60 tablet 09/19/15 [Rx] Albuterol Neb [Proventil Neb] 2.5 mg IH Q4HR 07/05/16 [History] Furosemide [Lasix] 40 mg PO BIDDIURETIC #20 tablet 09/12/16 [Rx] Pseudoephedrine [Sudafed] 30 mg PO Q4HR PRN #20 tablet 09/12/16 [Rx] Allergies Penicillins Allergy (Verified 09/03/16 22:33) Rash All Systems PM: A 10-system review of systems was performed and is negative for pertinent findings except as documented above in the HPI. Review of systems: ROS 14 point review of systems reviewed as best as possible given presentation. Pertinent positive or negative as per HPI or otherwise reviewed as negative - Constitutional Vitals: Temp Pulse Resp BP Pulse Ox 98 F 78 20 121/78 100 12/05/16 00:59 12/05/16 00:59 12/05/16 01:17 12/05/16 00:59 12/05/16 01:17 Exam: General - AAO x 3 Psych - Appropriate affect/speech. No agitation Eyes - LULU. Eye lids intact. No scleral icterus ENT - Oral mucosa pink, dentition intact. External ear clear/dry/intact. No thyromegaly Lymphatics - No cervical/inguinal lympadenopathy Neuro - No gross peripheral or central neuro deficits with intact CN 2-12 exam Heart - Sinus. RRR. S1 and S2 present. No added HS/murmurs appreciated. No elevated JVD appreciated. Lung - Adequate air entry b/l, diffuse wheezes and bibasilar crackles GI - Soft, non-tender. No hepatosplenomegaly/ascities. BS+ - No CVA/suprapubic tenderness or palpable bladder distension Skin - Intact. No rash/petechiae/ecchymosis. Chronic lower extremity edema or skin changes Internal Med - H&P Results - Labs CBC & Chem 7: 12/05/16 00:58 12/05/16 00:58 Labs: Short CBC 12/05/16 Range/Units 00:58 WBC 11.1 (4.3-11.1) K/mcL Hgb 9.0 L (11.5-15.4) g/dL Hct 30.2 L (35.3-44.9) % Plt Count 378 (140-400) K/mcL Neutrophils # 8.9 (1.6-8.9) K/mcL BMP 12/05/16 00:58 Sodium 142 Potassium 3.9 Chloride 104 Carbon Dioxide 29 BUN 17 Creatinine 0.78 Glucose 137 H Calcium 8.8 Cardiac Enzymes 12/05/16 Range/Units 00:58 Troponin I 0.00 (0-0.03) ng/mL Liver Function 12/05/16 Range/Units 00:58 Total Bilirubin 0.4 (0.2-1.2) mg/dL Direct Bilirubin 0.2 (0.0-0.5) mg/dL AST 17 (5-34) Units/L ALT 11 (0-55) Units/L Alkaline Phosphatase 93 (38-126) Units/L Albumin 2.7 L (3.5-5.0) g/dL - Impressions ITS Impressions Chest X-Ray 12/05/16 00:13 IMPRESSION: Stable cardiomegaly and pulmonary vascular congestion. D/ / Tami Mckeon MD / Tami Mckeon MD Interpreting Provider: Tami Mckeon MD
[2016-12-05 02:47] LABS: Bilirubin,Urine Negative (Negative); Blood,Urine Negative (Negative); Clarity,Urine Clear (Clear); Color,Urine Yellow (Yellow); Glucose,Urine (UA) Normal (Normal); Ketones,Urine Negative (Negative); Leukocyte Esterase,Urine Negative (Negative); Nitrite,Urine Negative (Negative); PH,Urine 6.5 pH Units (5.0-8.0); Protein,Urine Negative (Neg-Trace); Specific Gravity,Urine 1.011 (1.010-1.025); Urobilinogen,Urine Normal (Normal)
[2016-12-05] MEDS: Ipratropium/Albuterol Neb 3 ML IH SCH ×4 (04:16→22:15)
[2016-12-05 05:09] LABS: Basophils % 0.3 %; Eosinophils # 0.3 K/mcL (0.0-0.6); Eosinophils % 2.6 %; Hematocrit 29.2 % (35.3-44.9); Immature Granulocytes % 0.7 % (0-4); Lymphocytes # 1.2 K/mcL (0.6-4.6); Lymphocytes % 11.2 %; Mean Corpuscular HGB Conc 30.8 g/dL (31.6-35.5); Mean Corpuscular Hemoglobin 30.5 pg (28.0-33.3); Mean Platelet Volume 9.6 fL (9.4-12.4); Monocytes # 0.7 K/mcL (0.0-1.3); Monocytes % 6.1 %; Neutrophils # 8.7 K/mcL (1.6-8.9); Nucleated Red Blood Cells 0.6 /100 WBC (0); Platelet Count 387 K/mcL (140-400); Red Blood Count 2.95 M/mcL (3.82-4.97); Red Cell Distribution Width 15.6 % (11.5-14.5); Segmented Neutrophils % 79.1 %
[2016-12-05 05:29] LABS: BUN/Creatinine Ratio 19 (6-26); Blood Urea Nitrogen 14 mg/dL (7-20); Calcium 8.7 mg/dL (8.6-10.8); Carbon Dioxide 30 mEq/L (19-29); Chloride 105 mEq/L (98-109); Glucose 122 mg/dL (70-99); Magnesium 1.8 mg/dL (1.6-2.6); Osmolality,Calculated 298 (280-300); Sodium 143 mEq/L (136-145); eGFR For African Americans > 60 (> 60); eGFR For Non-African Americans > 60 (> 60)
[2016-12-05] MEDS: Azithromycin 500 MG in D5% in Water 250 ML IVPB SCH (05:57)
[2016-12-05] MEDS: MethylPREDNISolone 40 MG/ML VIAL IVP SCH ×3 (05:58→17:58)
[2016-12-05] MEDS: *HR* Enoxaparin 40 MG/0.4 ML SYRINGE SQ SCH (05:58)
[2016-12-05] MEDS: Diltiazem CD (24hr) 180 MG CAPSULE PO SCH (09:02)
[2016-12-05] MEDS: Nicotine 14 MG PATCH.TD24 TD SCH (09:02)
[2016-12-05] MEDS: Aspirin 325 MG TABLET PO SCH (09:02)
[2016-12-05] MEDS: Budesonide/Formoterol 160/4.5 MDI IH SCH ×2 (10:46→22:16)
[2016-12-05] MEDS ORDERED: Magnesium Sulfate 2 GM in D5% in Water 100 ML IVPB ONE (11:49)
--- NOTE | 2016-12-05 14:02 | Internal Med Progress Note ---
Date of Encounter: 12/05/16 Time of Encounter: 08:00 - Assessment and plan (1) Acute exacerbation of chronic obstructive airways disease Current Visit: Yes Status: Acute Assessment and plan: We will continue antibiotic, steroid, bronchodilator. Closely monitor patient. O2 supportive treatment. (2) Acute and chronic respiratory failure Current Visit: No Status: Acute Assessment and plan: Due to COPD exacerbation. Treatment as above. Qualifiers: Respiratory failure complication: hypoxia and hypercapnia Qualified Code(s) : J96.21 - Acute and chronic respiratory failure with hypoxia; J96.22 - Acute and chronic respiratory failure with hypercapnia (3) CHF (congestive heart failure) Current Visit: No Status: Suspected Assessment and plan: Previous echo reviewed. EF 65-70%. Continue Lasix, change it to IV 40 mg twice a day. Qualifiers: Congestive heart failure type: diastolic Congestive heart failure chronicity: chronic Qualified Code(s): I50.32 - Chronic diastolic (congestive ) heart failure (4) DVT prophylaxis Current Visit: No Status: Acute Assessment and plan: Lovenox sc (5) Atrial fibrillation Current Visit: Yes Status: Acute Assessment and plan: Patient has a history of chronic A. fib. Heart rate is well controlled. On aspirin 325 mg by mouth daily for anti-coagulation per cardio consult previously (09/11/15). Qualifiers: Atrial fibrillation type: chronic Qualified Code(s): I48.2 - Chronic atrial fibrillation (6) TYE (obstructive sleep apnea) Current Visit: No Status: Chronic Assessment and plan: Continue CPAP during the night (7) Tobacco abuse Current Visit: Yes Status: Acute Assessment and plan: Smoking cessation education. Patient is on nicotine patch - Time Spent With Patient 25 - 35 minutes - Subjective Interval history: Patient is a 55-year-old female admitted for COPD exacerbation. Her past medical history is significant for COPD, CHF, A. fib, tobacco abuse. Patient was seen and examined. She feels that shortness of breath is getting less after treatment. But still in acute respiratory distress. Denies chest pain. Vitals are stable. Will continue current treatment, give magnesium 2 g IV for bronchial spasm. - Constitutional Vitals: Temp Pulse Resp BP Pulse Ox 97.9 F 81 20 108/85 90 12/05/16 11:42 12/05/16 13:31 12/05/16 11:42 12/05/16 11:42 12/05/16 13:31 General appearance: Present: mild distress, A&O X 3, answers questions appropriately - Head Head exam: Present: atraumatic, normocephalic - Eye Eye exam: Present: PERRL, conjuntiva pink, sclera anicteric Pupils: Present: PERRL - Neck Neck exam general surgery: Present: supple, trachea midline. Absent: lymphadenopathy - Respiratory Respiratory exam: Present: CTAB, wheezes (Diffused wheezes bilaterally). Absent : accessory muscle use, rales, rhonchi - Cardiovascular Cardiovascular exam: Present: RRR, +S1, +S2. Absent: diastolic murmur, gallop, rubs, systolic murmur - GI/Abdominal GI/Abdominal exam: Present: normal bowel sounds, soft, no peritoneal signs. Absent: distended, tenderness - Extremities Exam Extremities exam: Present: warm, radial pulses palpable and symetrical. Absent : calf tenderness, cyanotic, pedal edema - Neurological Exam Neurological exam: Present: CN II-XII intact, oriented X3, no focal deficits. Absent: pronater drift, facial droop, speech deficit - Skin Skin exam: Present: dry, intact Internal Medicine: Result - Labs CBC & Chem 7: 12/05/16 04:42 12/05/16 04:42 Labs: Short CBC 12/05/16 Range/Units 04:42 WBC 11.1 (4.3-11.1) K/mcL Hgb 9.0 L (11.5-15.4) g/dL Hct 29.2 L (35.3-44.9) % Plt Count 387 (140-400) K/mcL Neutrophils # 8.7 (1.6-8.9) K/mcL BMP 12/05/16 04:42 Sodium 143 Potassium 4.0 Chloride 105 Carbon Dioxide 30 H BUN 14 Creatinine 0.72 Glucose 122 H Calcium 8.7 Consult Discharge Plan - Plan Referrals: Blanche Caro, [facility] [Primary Care Provider] - (SENT WEB REQUEST ON 12-05-16 @ [id number])
--- NOTE | 2016-12-05 17:57 | Electrocardiograph Report ---
[address] [place] [address] Test Date: 2016-12-05 Pat Name: Shanda Mccormick Department: 103 Room: 2N07 Gender: F Ios Developer: KULWANT : 1960 Requested By: Lynn Travis Order Number: [id number] Reading MD: Ranjana Gifford Measurements Intervals [place] Rate: 96 P: NV: 0 QRS: 29 QRSD: 93 T: 13 QT: 396 QTc: 450 Interpretive Statements ATRIAL FIBRILLATION LOW QRS VOLTAGE POSSIBLE ANTERIOR MYOCARDIAL INFARCTION, PROBABLY OLD ARTIFACT Electronically Signed On 12-05-2016 17:55:47 EDT by Ranjana Gifford
[2016-12-05] MEDS: Furosemide 40 MG/4 ML VIAL IVP SCH (22:22)
[2016-12-06] MEDS: Nystatin POWDER 30 GM BOTTLE TP SCH ×3 (00:11→22:13)
[2016-12-06] MEDS: MethylPREDNISolone 40 MG/ML VIAL IVP SCH ×3 (00:11→22:11)
[2016-12-06] MEDS: Ipratropium/Albuterol Neb 3 ML IH SCH ×4 (03:57→21:41)
[2016-12-06] MEDS: Azithromycin 500 MG in D5% in Water 250 ML IVPB SCH (05:23)
[2016-12-06] MEDS: *HR* Enoxaparin 40 MG/0.4 ML SYRINGE SQ SCH (05:23)
[2016-12-06 06:13] LABS: Hematocrit 28.4 % (35.3-44.9); Hemoglobin 8.5 g/dL (11.5-15.4); Immature Granulocytes % 0.9 % (0-4); Lymphocytes # 0.9 K/mcL (0.6-4.6); Lymphocytes % 7.8 %; Mean Corpuscular HGB Conc 29.9 g/dL (31.6-35.5); Mean Corpuscular Hemoglobin 29.8 pg (28.0-33.3); Mean Corpuscular Volume 99.6 fL (83.0-100.0); Mean Platelet Volume 9.3 fL (9.4-12.4); Monocytes # 0.2 K/mcL (0.0-1.3); Neutrophils # 10.4 K/mcL (1.6-8.9); Nucleated Red Blood Cells 0.2 /100 WBC (0); Platelet Count 359 K/mcL (140-400); Red Blood Count 2.85 M/mcL (3.82-4.97); Red Cell Distribution Width 15.4 % (11.5-14.5); Segmented Neutrophils % 89.3 %
[2016-12-06 06:30] LABS: Hemoglobin A1C 6.3 %
[2016-12-06 06:33] LABS: BUN/Creatinine Ratio 24 (6-26); Blood Urea Nitrogen 18 mg/dL (7-20); Calcium 8.7 mg/dL (8.6-10.8); Carbon Dioxide 32 mEq/L (19-29); Chloride 102 mEq/L (98-109); Glucose 196 mg/dL (70-99); Osmolality,Calculated 297 (280-300); Potassium 4.5 mEq/L (3.5-4.5); Sodium 140 mEq/L (136-145); eGFR For African Americans > 60 (> 60); eGFR For Non-African Americans > 60 (> 60)
[2016-12-06] MEDS: Diltiazem CD (24hr) 180 MG CAPSULE PO SCH (08:06)
[2016-12-06] MEDS: Nicotine 14 MG PATCH.TD24 TD SCH (08:06)
[2016-12-06] MEDS: Aspirin 325 MG TABLET PO SCH (08:06)
[2016-12-06] MEDS: Furosemide 40 MG/4 ML VIAL IVP SCH ×2 (08:07→22:11)
[2016-12-06] MEDS: Budesonide/Formoterol 160/4.5 MDI IH SCH ×2 (10:28→21:41)
--- NOTE | 2016-12-06 14:20 | Cardiology Consult Note ---
Date of Encounter: 12/06/16 Time of Encounter: 14:09 Assessment and Plan (1) Atrial fibrillation Current Visit: Yes Status: Acute Pt is chronically in atrial fibrillation and is rate controlled at this time at 83 bpm per telemetry and there were no signs of RVR during her stay. She is controlled on Diltiazem 360 mg Daily and 50 mg Lopressor BID. She should continue that current afib regimen, For anticoagulation she is on 325mg Daily ASA as she has a history of poor f/u so no other anticoagulation has been set up at this time. Her CHADS-Vasc score is 2 so she is very lost risk. I would recommend she f/u with cardiology in the outpatient setting to talk with her more about anti-coagulation options if she has better compliance of f/u. At this point the afib is rate controlled and she is anticoagulated so there are no other recommendations at this time other than cardiology f/u in the outpatient setting. Cardiology can sign off this patient. Qualifiers: Atrial fibrillation type: chronic Qualified Code(s): I48.2 - Chronic atrial fibrillation (2) Diastolic CHF Current Visit: No Status: Acute She has a chronic history of diastolic CHF due to pulmonary HTN which is controlled with her 40mg lasix BID. She is still on those here and has undergoing adequte diuresis. Would recommend continued diuresis with lasix and for her to continue her lasix regimen and f/u with cardiology about this issue. At this time cardiology can sign off this patient for this problem. Qualifiers: Congestive heart failure chronicity: chronic Qualified Code(s): I50.32 - Chronic diastolic (congestive) heart failure Discussion w patient/family: The assessment and plan as outlined above was discussed with the patient and/or family members who expressed understanding and agreement. All questions were answered. Thank you for involving us in the care of your patient. Please call with any questions. History of Present Illness Consult date: 12/06/16 Requesting physician: Nayely Virgen Consult reason: AFib with RVR Chief complaint: MARICEL History of present illness: Ms. Mccormick is a 55 year old female with PMH of chronic Afib, CHF, hyperlipidemia, COPD who presented to the ED with difficulty breathing. She was diagnosed with an acute COPD exacerbation due to her not taking her medicatios regularly. She states she had a little chest pressure when seen in the ED but has not had any since then. She currently complains of no chest pain today. She does have chronic history of always being in Afib but is rate controlled with Diltiazem and Metoprolol. Due to poor f/u with cardiology she was only placed on 325mg ASA for anticoagulation. For her CHF she is always on 40 mg Lasix BID and that has been continued since her admission. She had a Echo in 2016 that shows 60-70% EF. She states that she continues to smoke cigarettes but has not drank alcohol in 1 month. She has been better about her pcp apointments but has had to reschedule her recent cardiology appointments. She states she is set to f/u with cardiology here in the next month or two and does plan attend that appointment. Pt states her breathing is better now after a few breathing treatments and she has been urinating quite a bit but she has no other complaints today. Past Med Surg Social Fam HX - Past Medical History Medical history: arthritis, asthma, atrial fibrillation, CHF, COPD, diabetes, GERD, hyperlipidemia, hypertension, osteoporosis, valvular heart disease, other Psychiatric history: no psych history, other - Past Surgical History Surgical History: non-contributory, other - Social History Smoking Status: Current every day smoker Packs per day: 1 Smokeless Tobacco Status: No Alcohol use: rarely Drug use: none - Family History Mother Living Status: Hx Family Cardiac Disorders: Yes Hx Family Endocrine Disorder: Yes (Hypothyroid, DM) Father Living Status: Hx Family Respiratory Disorders: Yes (Asthma, COPD, Emphysema) Medications and Allergies Aclidinium [place]rike [Tudorza Pressair] 1 puff IH BID 09/08/15 [History] Albuterol Sulfate [Proair Hfa] 2 puff IH Q4H PRN 09/08/15 [History] Budesonide/Formoterol 160/4.5 [Symbicort 160/4.5] 2 puff IH BIDR 09/08/15 [ History] Simvastatin [Zocor] 40 mg PO HS 09/08/15 [History] Aspirin 325 mg PO DAILY #60 tablet 09/19/15 [Rx] Diltiazem CD (24hr) [Cardizem CD] 360 mg PO DAILY #30 cap.er.24h 09/19/15 [Rx] Metoprolol [Lopressor] 50 mg PO BID #60 tablet 09/19/15 [Rx] Albuterol Neb [Proventil Neb] 2.5 mg IH Q4HR 07/05/16 [History] Furosemide [Lasix] 40 mg PO BIDDIURETIC #20 tablet 09/12/16 [Rx] Pseudoephedrine [Sudafed] 30 mg PO Q4HR PRN #20 tablet 09/12/16 [Rx] Oxygen 4 l .ROUTE AD 12/05/16 [History] Allergies Penicillins Allergy (Verified 09/03/16 22:33) Rash All Systems Review: A 10-system review of systems was performed and is negative for pertinent findings except as documented above in the HPI. - Constitutional Constitutional: no chills, no fatigue, no headache(s), no weakness, no weight gain - EENT Eyes: no blurred vision, no loss of vision Nose, mouth and throat: no dysphagia, no mouth pain, no sore throat - Cardiovascular Cardiovascular: dyspnea on exertion, irregular heart rhythm, leg edema, orthopnea, no chest pain at rest, no chest pain with exertion, no diaphoresis, no lightheadedness, no palpitations, no rapid heart rate, no syncope - Respiratory Respiratory: dyspnea, wheezing, no cough, no hemoptysis - Gastrointestinal Gastrointestinal: no abdominal pain, no constipation, no diarrhea, no hematemesis, no nausea - Genitourinary Genitourinary: no dysuria - Musculoskeletal Musculoskeletal: no abnormal gait, no arthralgias, no back pain - Integumentary Integumentary: no erythema, no rash - Neurological Neurological: no abnormal speech, no dizziness, no focal weakness, no loss of vision - Psychiatric Psychiatric: no anxiety, no depression - Hematological/Lymphatic Hematologic/Lymphatic: no easy bleeding Physical Examination Vital Signs, Last 4 Hours Temp Pulse Resp BP Pulse Ox 12/06/16 11:11 67 12/06/16 11:06 98.5 F 76 16 96/63 4 12/06/16 10:30 20 92 General: Conversant, No Apparent Distress HEENT: Atraumatic, Normocephaly, Mucus Membranes Moist Neck: No JVD, Normal carotid pulses Cardiac: Normal S1 and S2, No Murmur, Other (Irregular rhythm but normal rate) Lungs: Normal Breath Sounds, No Wheeze, Rales, Rhonchi Neuro: Alert and responsive, No focal deficits noted Abdomen: Soft, Non-Tender Skin: No rashes noted on visualized skin Musculoskeletal: No Chest Wall Tenderness Extremities: No Clubbing, No Cyanosis, Normal Pulses, Other (1+ bilateral tibial pitting edema that she states is chronic) Results 12/06/16 05:58 12/06/16 05:58 Lab Results 12/06/16 12/06/16 05:58 05:58 WBC 11.6 H Hgb 8.5 L Hct 28.4 L Plt Count 359 Sodium 140 Potassium 4.5 Chloride 102 Carbon Dioxide 32 H BUN 18 Creatinine 0.75 Glucose 196 H Calcium 8.7 - Imaging and Cardiology Chest Xray: report reviewed, image reviewed - EKG Interpretation EKG results cardiology: personally reviewed, normal ECG, other (Atrial fibrillation rate controlled at 83 bpm) Consult Discharge Plan - Plan Referrals: Walter Interiano MD [Partnered Physician] - 02/08/17 1:00 pm Blanche Caro CNP [Primary Care Provider] - (SENT WEB REQUEST ON 12-05-16 @ [phone])
--- NOTE | 2016-12-06 17:47 | Internal Med Progress Note ---
Date of Encounter: 12/06/16 Time of Encounter: 09:30 - Assessment and plan (1) Acute exacerbation of chronic obstructive airways disease Current Visit: Yes Status: Acute Assessment and plan: Improving slowly O2 is at 4 lit now..usually she take 3.5 at home start tapering IV steroids cont Duoneb no need of abx now..no signs of infection noticed (2) Acute and chronic respiratory failure Current Visit: No Status: Acute Assessment and plan: Due to COPD exacerbation. Treatment as above. improving Qualifiers: Respiratory failure complication: hypoxia and hypercapnia Qualified Code(s) : J96.21 - Acute and chronic respiratory failure with hypoxia; J96.22 - Acute and chronic respiratory failure with hypercapnia (3) Morbid obesity with BMI of 70 and over, adult Current Visit: No Status: Acute (4) Diastolic CHF Current Visit: No Status: Acute Assessment and plan: Improving Echo from 07/22 showed LVEF 65- 70%, Diastolic dysfunction cont IV diuresis with Lasix 40mg BID cont Metoprolol, ASA and statin Qualifiers: Congestive heart failure chronicity: chronic Qualified Code(s): I50.32 - Chronic diastolic (congestive) heart failure (5) Atrial fibrillation Current Visit: Yes Status: Acute Assessment and plan: Chroic permanent A fib rate controlled with Cardizem and Metoprolol her CHADSVAC score 2 - may get benefit anticoagulation Consulted timber estimator to guide us regarding anticoag options nieto mean while cont ASA 325mg Qualifiers: Atrial fibrillation type: chronic Qualified Code(s): I48.2 - Chronic atrial fibrillation (6) Eczema Current Visit: Yes Status: Acute Assessment and plan: started her on hydrocortisone cream Qualifiers: Qualified Code(s): L30.9 - Dermatitis, unspecified (7) DVT prophylaxis Current Visit: No Status: Acute Assessment and plan: on Lovenox - Subjective Interval history: Ms. Mccormikc is a 55 year old female with PMH of chronic Afib, CHF, hyperlipidemia, COPD who presented to the ED with difficulty breathing. She does have COPD exacerbation and CHF exacerbation. Pt was started on aggressive IV diuresis and IV steroids. Pt stated she is feeling little better today, her swelling in the legs also little better. No CP . Still has some SOB and DALE - Constitutional Vitals: Temp Pulse Resp BP Pulse Ox 98.4 F 89 37 90/74 99 12/06/16 16:16 12/06/16 16:16 12/06/16 16:16 12/06/16 16:16 12/06/16 16:16 General appearance: Present: mild distress, A&O X 3, answers questions appropriately - Head Head exam: Present: atraumatic, normal inspection - Neck Neck exam general surgery: Present: supple. Absent: tenderness - Respiratory Respiratory exam: Present: decreased breath sounds, rales, wheezes. Absent: respiratory distress, rhonchi - Cardiovascular Cardiovascular exam: Present: irregular rhythm, +S1, +S2. Absent: systolic murmur - GI/Abdominal GI/Abdominal exam: Present: distended, normal bowel sounds, soft. Absent: tenderness - Extremities Exam Extremities exam: Present: pedal edema (3 + pitting edema), warm. Absent: calf tenderness, tenderness - Neurological Exam Neurological exam: Present: alert, oriented X3 - Psychiatric Psychiatric exam: Present: normal affect, normal mood - Skin Skin exam: Present: excoriation, rash (eczematous raash all extremeties) Internal Medicine: Result - Labs CBC & Chem 7: 12/06/16 05:58 12/06/16 05:58 Labs: Short CBC 12/06/16 Range/Units 05:58 WBC 11.6 H (4.3-11.1) K/mcL Hgb 8.5 L (11.5-15.4) g/dL Hct 28.4 L (35.3-44.9) % Plt Count 359 (140-400) K/mcL Neutrophils # 10.4 H (1.6-8.9) K/mcL BMP 12/06/16 05:58 Sodium 140 Potassium 4.5 Chloride 102 Carbon Dioxide 32 H BUN 18 Creatinine 0.75 Glucose 196 H Calcium 8.7 Consult Discharge Plan - Plan Referrals: Walter Interiano MD [Partnered Physician] - 02/08/17 1:00 pm Blanche Caro CNP [Primary Care Provider] - (SENT WEB REQUEST ON 12-05-16 @ 0862)
[2016-12-06] MEDS ORDERED: Acetaminophen 325 MG TABLET PO PRN (17:58)
[2016-12-07] MEDS: Ipratropium/Albuterol Neb 3 ML IH SCH ×4 (03:44→23:28)
[2016-12-07 05:30] LABS: Basophils % 0.1 %; Hematocrit 28.4 % (35.3-44.9); Hemoglobin 8.3 g/dL (11.5-15.4); Immature Granulocytes % 0.7 % (0-4); Lymphocytes % 5.9 %; Mean Corpuscular HGB Conc 29.2 g/dL (31.6-35.5); Mean Corpuscular Volume 99.3 fL (83.0-100.0); Mean Platelet Volume 9.3 fL (9.4-12.4); Monocytes # 0.5 K/mcL (0.0-1.3); Monocytes % 2.9 %; Neutrophils # 14.5 K/mcL (1.6-8.9); Nucleated Red Blood Cells 0.1 /100 WBC (0); Platelet Count 360 K/mcL (140-400); Red Blood Count 2.86 M/mcL (3.82-4.97); Red Cell Distribution Width 15.4 % (11.5-14.5); Segmented Neutrophils % 90.4 %
[2016-12-07 05:46] LABS: BUN/Creatinine Ratio 31 (6-26); Blood Urea Nitrogen 24 mg/dL (7-20); Calcium 8.6 mg/dL (8.6-10.8); Carbon Dioxide 33 mEq/L (19-29); Chloride 100 mEq/L (98-109); Glucose 171 mg/dL (70-99); Osmolality,Calculated 296 (280-300); Potassium 4.7 mEq/L (3.5-4.5); Sodium 139 mEq/L (136-145); eGFR For African Americans > 60 (> 60); eGFR For Non-African Americans > 60 (> 60)
[2016-12-07] MEDS: *HR* Enoxaparin 40 MG/0.4 ML SYRINGE SQ SCH (06:17)
[2016-12-07] MEDS: Diltiazem CD (24hr) 180 MG CAPSULE PO SCH (09:18)
[2016-12-07] MEDS: Nicotine 14 MG PATCH.TD24 TD SCH (09:19)
[2016-12-07] MEDS: Aspirin 325 MG TABLET PO SCH (09:19)
[2016-12-07] MEDS: MethylPREDNISolone 40 MG/ML VIAL IVP SCH (09:20)
[2016-12-07] MEDS: Furosemide 40 MG/4 ML VIAL IVP SCH ×2 (09:20→19:54)
[2016-12-07] MEDS: Nystatin POWDER 30 GM BOTTLE TP SCH ×2 (09:21→21:01)
[2016-12-07] MEDS: Budesonide/Formoterol 160/4.5 MDI IH SCH ×2 (10:46→23:28)
--- NOTE | 2016-12-07 11:56 | Internal Med Progress Note ---
Date of Encounter: 12/07/16 Time of Encounter: 11:53 - Assessment and plan (1) Acute exacerbation of chronic obstructive airways disease Current Visit: Yes Status: Acute Assessment and plan: Improving slowly O2 is at 4 lit now..usually she take 3.5 at home Cont tapering IV steroids cont Duoneb Pt does have signs of purulent bronchitis , cough with yellowish expectoration, her WBC went up so will start her on Doxycycline x 5 days course (2) Acute and chronic respiratory failure Current Visit: No Status: Acute Assessment and plan: Due to COPD exacerbation. Treatment as above. improving Qualifiers: Respiratory failure complication: hypoxia and hypercapnia Qualified Code(s) : J96.21 - Acute and chronic respiratory failure with hypoxia; J96.22 - Acute and chronic respiratory failure with hypercapnia (3) Bronchitis Current Visit: Yes Status: Acute Assessment and plan: Pt does have signs of purulent bronchitis , cough with yellowish expectoration, her WBC went up so will start her on Doxycycline x 5 days course (4) Diastolic CHF Current Visit: No Status: Acute Assessment and plan: Improving had -2858 -ve fluid balance Echo from 07/22 showed LVEF 65- 70%, Diastolic dysfunction cont IV diuresis with Lasix 40mg BID cont Metoprolol, ASA and statin Qualifiers: Congestive heart failure chronicity: chronic Qualified Code(s): I50.32 - Chronic diastolic (congestive) heart failure (5) Atrial fibrillation Current Visit: Yes Status: Acute Assessment and plan: Chroic permanent A fib rate controlled with Cardizem and Metoprolol her CHADSVAC score 4 with Female, HTN, CHF and DM2 ( HbA1C 6.3) - may get benefit anticoagulation Twister Doffer did evaluate the pt, since she has compliance issues, recommend to cont ASA 325mg now and f/u with Card as an out pt to discuss about anticoag options Pt did mention she stop drinking alcohol for a month Qualifiers: Atrial fibrillation type: chronic Qualified Code(s): I48.2 - Chronic atrial fibrillation (6) Eczema Current Visit: Yes Status: Acute Assessment and plan: cont her on hydrocortisone cream Qualifiers: Qualified Code(s): L30.9 - Dermatitis, unspecified (7) DVT prophylaxis Current Visit: No Status: Acute Assessment and plan: on Lovenox (8) Morbid obesity with BMI of 70 and over, adult Current Visit: No Status: Acute (9) Tobacco dependence Current Visit: Yes Status: Acute Assessment and plan: counseled to quit on nicotine patch (10) Physical deconditioning Current Visit: Yes Status: Acute Assessment and plan: PT / OT eval need SNF placement for short tem PT / OT CM / SW working on it possible d/c in AM - Subjective Interval history: Ms. Mccormick is a 55 year old female with PMH of chronic Afib, CHF, hyperlipidemia, COPD who presented to the ED with difficulty breathing. She does have COPD exacerbation and CHF exacerbation. Pt was started on aggressive IV diuresis and IV steroids. Pt stated she is feeling little better today, her swelling in the legs also little better. No CP . Still has some SOB and DALE. C/ o chills. Still has cough with yellowish expectoration - Constitutional Vitals: Temp Pulse Resp BP Pulse Ox 97.6 F 88 16 115/86 98 12/07/16 10:21 12/07/16 10:21 12/07/16 10:46 12/07/16 10:21 12/07/16 10:46 General appearance: Present: A&O X 3, answers questions appropriately - Head Head exam: Present: atraumatic, normal inspection - Neck Neck exam general surgery: Present: supple. Absent: lymphadenopathy - Respiratory Respiratory exam: Present: decreased breath sounds, rales, wheezes. Absent: respiratory distress, rhonchi - Cardiovascular Cardiovascular exam: Present: irregular rhythm, +S1, +S2. Absent: systolic murmur - GI/Abdominal GI/Abdominal exam: Present: distended, normal bowel sounds, soft. Absent: tenderness - Extremities Exam Extremities exam: Present: pedal edema (3+). Absent: calf tenderness, tenderness - Psychiatric Psychiatric exam: Present: normal affect, normal mood - Skin Skin exam: Present: rash (eczematous) Internal Medicine: Result - Labs CBC & Chem 7: 12/07/16 04:48 12/07/16 04:48 Labs: Short CBC 12/07/16 Range/Units 04:48 WBC 16.1 H (4.3-11.1) K/mcL Hgb 8.3 L (11.5-15.4) g/dL Hct 28.4 L (35.3-44.9) % Plt Count 360 (140-400) K/mcL Neutrophils # 14.5 H (1.6-8.9) K/mcL BMP 12/07/16 04:48 Sodium 139 Potassium 4.7 H Chloride 100 Carbon Dioxide 33 H BUN 24 H Creatinine 0.77 Glucose 171 H Calcium 8.6 - Impressions Impressions Chest X-Ray 12/07/16 08:00 IMPRESSION: Mild congestive heart failure. D/ / 12/07/2016 08:17:24 Jaun Smith MD / carmine Interpreting Provider: Jaun Smith MD Consult Discharge Plan - Plan Referrals: Walter Interiano MD [Partnered Physician] - 02/08/17 1:00 pm Blanche Caro CNP [Primary Care Provider] - (SENT WEB REQUEST ON 12-05-16 @ 1038)
[2016-12-07] MEDS: Doxycycline 100 MG in 0.9 % Sodium Chloride Mini Bag 100 ML IVPB SCH ×2 (12:34→23:24)
[2016-12-08] MEDS: Ipratropium/Albuterol Neb 3 ML IH SCH ×4 (04:34→21:54)
[2016-12-08 05:35] LABS: Basophils % 0.1 %; Hematocrit 29.5 % (35.3-44.9); Hemoglobin 8.7 g/dL (11.5-15.4); Immature Granulocytes % 0.7 % (0-4); Lymphocytes # 1.5 K/mcL (0.6-4.6); Lymphocytes % 9.9 %; Mean Corpuscular HGB Conc 29.5 g/dL (31.6-35.5); Mean Corpuscular Hemoglobin 29.2 pg (28.0-33.3); Mean Platelet Volume 9.4 fL (9.4-12.4); Monocytes # 0.9 K/mcL (0.0-1.3); Monocytes % 6.1 %; Neutrophils # 12.5 K/mcL (1.6-8.9); Nucleated Red Blood Cells 0.1 /100 WBC (0); Platelet Count 370 K/mcL (140-400); Red Blood Count 2.98 M/mcL (3.82-4.97); Red Cell Distribution Width 15.5 % (11.5-14.5); Segmented Neutrophils % 83.2 %
[2016-12-08 05:48] LABS: BUN/Creatinine Ratio 33 (6-26); Blood Urea Nitrogen 27 mg/dL (7-20); Calcium 8.8 mg/dL (8.6-10.8); Chloride 98 mEq/L (98-109); Glucose 167 mg/dL (70-99); Magnesium 2.1 mg/dL (1.6-2.6); Osmolality,Calculated 301 (280-300); Potassium 4.3 mEq/L (3.5-4.5); Sodium 141 mEq/L (136-145); eGFR For African Americans > 60 (> 60); eGFR For Non-African Americans > 60 (> 60)
[2016-12-08 05:50] LABS: Carbon Dioxide 40 mEq/L (19-29)
[2016-12-08] MEDS: *HR* Enoxaparin 40 MG/0.4 ML SYRINGE SQ SCH (06:25)
[2016-12-08] MEDS: Furosemide 40 MG/4 ML VIAL IVP SCH ×2 (08:14→21:19)
[2016-12-08] MEDS: Nicotine 14 MG PATCH.TD24 TD SCH (08:15)
[2016-12-08] MEDS: Aspirin 325 MG TABLET PO SCH (08:15)
[2016-12-08] MEDS: Diltiazem CD (24hr) 180 MG CAPSULE PO SCH (08:15)
[2016-12-08] MEDS: MethylPREDNISolone 40 MG/ML VIAL IVP SCH (08:15)
[2016-12-08] MEDS: Nystatin POWDER 30 GM BOTTLE TP SCH ×2 (08:17→21:20)
[2016-12-08] MEDS: Budesonide/Formoterol 160/4.5 MDI IH SCH ×2 (10:37→21:54)
[2016-12-08] MEDS: Doxycycline 100 MG in 0.9 % Sodium Chloride Mini Bag 100 ML IVPB SCH (11:23)
--- NOTE | 2016-12-08 12:36 | Discharge Summary ---
Date of Encounter: 12/08/16 Time of Encounter: 12:29 - Discharge Diagnosis (1) Acute exacerbation of chronic obstructive airways disease Priority: Primary Status: Acute (2) Acute and chronic respiratory failure Priority: Secondary Status: Acute Qualifiers: Respiratory failure complication: hypoxia and hypercapnia Qualified Code(s) : J96.21 - Acute and chronic respiratory failure with hypoxia; J96.22 - Acute and chronic respiratory failure with hypercapnia (3) Bronchitis Priority: Primary Status: Acute (4) Diastolic CHF Priority: Primary Status: Acute Qualifiers: Congestive heart failure chronicity: chronic Qualified Code(s): I50.32 - Chronic diastolic (congestive) heart failure (5) Atrial fibrillation Priority: Secondary Status: Acute Qualifiers: Atrial fibrillation type: chronic Qualified Code(s): I48.2 - Chronic atrial fibrillation (6) Eczema Priority: Secondary Status: Acute Qualifiers: Qualified Code(s): L30.9 - Dermatitis, unspecified (7) Morbid obesity with BMI of 70 and over, adult Priority: Secondary Status: Acute (8) Tobacco dependence Priority: Secondary Status: Acute (9) Physical deconditioning Priority: Secondary Status: Acute - Discharge Medications Prescriptions: Doxycycline Hyclate 100 mg PO BID #8 tablet predniSONE [PredniSONE] 40 mg PO DAILY #10 tablet Home Medications: Aclidinium [place] [Tudorza Pressair] 1 puff IH BID 09/08/15 [History] Albuterol Sulfate [Proair Hfa] 2 puff IH Q4H PRN 09/08/15 [History] Budesonide/Formoterol 160/4.5 [Symbicort 160/4.5] 2 puff IH BIDR 09/08/15 [ History] Simvastatin [Zocor] 40 mg PO HS 09/08/15 [History] Aspirin 325 mg PO DAILY #60 tablet 09/19/15 [Rx] Diltiazem CD (24hr) [Cardizem CD] 360 mg PO DAILY #30 cap.er.24h 09/19/15 [Rx] Metoprolol [Lopressor] 50 mg PO BID #60 tablet 09/19/15 [Rx] Albuterol Neb [Proventil Neb] 2.5 mg IH Q4HR 07/05/16 [History] Furosemide [Lasix] 40 mg PO BIDDIURETIC #20 tablet 09/12/16 [Rx] Pseudoephedrine [Sudafed] 30 mg PO Q4HR PRN #20 tablet 09/12/16 [Rx] Oxygen 4 l .ROUTE AD 12/05/16 [History] Doxycycline Hyclate 100 mg PO BID #8 tablet 12/08/16 [Rx] Hydrocortisone 1% CREAM [Cortaid] 1 appl TP BID 14 Days 12/08/16 [Rx] Ipratropium/Albuterol Neb [Duoneb] 3 ml IH [id number] PRN inh 12/08/16 [Rx] Nicotine Patch [Nicoderm] 14 mg TD DAILY 12/08/16 [Rx] Nystatin POWDER [Nystop] 1 appl TP BID bottle 12/08/16 [Rx] predniSONE [PredniSONE] 40 mg PO DAILY #10 tablet 12/08/16 [Rx] Allergies/Adverse Reactions: Allergies Penicillins Allergy (Verified 09/03/16 22:33) Rash Date of admission: 12/05/16 03:02 Primary care physician: Blanche Caro CNP Consults: 12/05/16 04:44 Consult to Critical Care Transport Nurse [CONS] Routine Reason for SW Consult: Possible home health needs. 12/06/16 09:35 Consult to Occupational Therapy [CONS] Routine Comment: Evaluate, develop and implement POC Reason for Consult: eval Consult to Physical Therapy [CONS] Routine Comment: Evaluate, develop and implement POC Reason for Consult: eval 12/06/16 10:22 Consult to Cardiology [CONS] Routine Comment: Consulting Provider: Cardiology Christin Reason for Consult: A fib with RVR Call Completed: No - Patient Status Disposition: Transfer SNF Condition: Fair Overall status at discharge: patient is back to baseline - Discharge Instructions Follow Up With: Walter Interiano MD [Partnered Physician] - 02/08/17 1:00 pm Blanche Caro CNP [Primary Care Provider] - (SENT WEB REQUEST ON 12-05-16 @ 0441) Mp Shafer MD [Partnered Physician] - Additional Instructions: need t f/u with PCP in one week Need to f/u with Cardiology in one week Need to f/u with Pulmonary in 1- 2 weeks - Diet and Activity Activity: as per physical therapy Diet: low salt diet Hospital course: Ms. Mccormick is a 55 year old female with PMH of chronic Afib, CHF, hyperlipidemia, COPD who presented to the ED with difficulty breathing. Patient was admitted in the hospital for severe COPD exacerbation as well as acute diastolic heart failure exacerbation. Patient was started on high-dose IV steroids and frequent duonebs. Also she looks severe volume overload, so started her on aggressive IV diuresis with Lasix. Her SOB improved now. She also seems to be having cough with yellowish expectoration with possible purulent bronchitis. So I placed her on Doxycyline 100mg PO BID x 5 days course. She does have chronic A fib which is rate controlled with Cardizem and Metoprolol. However her CHADSVASC score 4, So I consulted Card for anticoagulation options. Pt does have non compliance history , and Chronic alcohol dependence history, so they recommend to continue ASA 325mg for now and follow up with them as an out pt to discuss about further options. Pt was seen by PT / OT here for deconditioning, who recommend ECF placement. So will d/c her to ECF in stable condition today. - Time Spent with Patient Total time spent providing and/or coordinating discharge services: Greater than 30 minutes (Spent 45 minutes on this patient's discharge summary due to complex medical problems and patient needed a lot of education regarding discharge instructions) - Constitutional Vitals: Temp Pulse Resp BP Pulse Ox 98.2 F 74 15 110/78 92 12/08/16 11:45 12/08/16 11:45 12/08/16 11:45 12/08/16 11:45 12/08/16 11:45 General appearance: Present: A&O X 3, answers questions appropriately - Head Head exam: Present: atraumatic, normal inspection, normocephalic - Neck Neck exam general surgery: Present: supple - Respiratory Respiratory exam: Present: decreased breath sounds, wheezes. Absent: respiratory distress, rhonchi - Cardiovascular Cardiovascular exam: Present: irregular rhythm, +S1, +S2. Absent: systolic murmur - GI/Abdominal GI/Abdominal exam: Present: distended, soft. Absent: guarding, rebound, rigid, tenderness - Extremities Exam Extremities exam: Present: pedal edema (improving swelling in both legs). Absent: calf tenderness, tenderness - Neurological Exam Neurological exam: Present: alert, oriented X3 - Psychiatric Psychiatric exam: Present: normal affect, normal mood - Skin Additional comments: eczematous rash
--- NOTE | 2016-12-08 12:40 | Physician Discharge Referral ---
ExtendedCare Referral Info Transfer To: F Provider in Charge after Transfer: PCP Institutional Level of Care: Skilled - Diagnosis (1) Acute exacerbation of chronic obstructive airways disease Status: Acute (2) Acute and chronic respiratory failure Status: Acute (3) Bronchitis Status: Acute (4) Diastolic CHF Status: Acute (5) Atrial fibrillation Status: Acute (6) Eczema Status: Acute (7) Morbid obesity with BMI of 70 and over, adult Status: Acute (8) Tobacco dependence Status: Acute (9) Physical deconditioning Status: Acute - Transfer Medications Prescriptions: Doxycycline Hyclate 100 mg PO BID #8 tablet predniSONE [PredniSONE] 40 mg PO DAILY #10 tablet Home Medications: Aclidinium [place] [Tudorza Pressair] 1 puff IH BID 09/08/15 [History] Albuterol Sulfate [Proair Hfa] 2 puff IH Q4H PRN 09/08/15 [History] Budesonide/Formoterol 160/4.5 [Symbicort 160/4.5] 2 puff IH BIDR 09/08/15 [ History] Simvastatin [Zocor] 40 mg PO HS 09/08/15 [History] Aspirin 325 mg PO DAILY #60 tablet 09/19/15 [Rx] Diltiazem CD (24hr) [Cardizem CD] 360 mg PO DAILY #30 cap.er.24h 09/19/15 [Rx] Metoprolol [Lopressor] 50 mg PO BID #60 tablet 09/19/15 [Rx] Albuterol Neb [Proventil Neb] 2.5 mg IH Q4HR 07/05/16 [History] Furosemide [Lasix] 40 mg PO BIDDIURETIC #20 tablet 09/12/16 [Rx] Pseudoephedrine [Sudafed] 30 mg PO Q4HR PRN #20 tablet 09/12/16 [Rx] Oxygen 4 l .ROUTE AD 12/05/16 [History] Doxycycline Hyclate 100 mg PO BID #8 tablet 12/08/16 [Rx] Hydrocortisone 1% CREAM [Cortaid] 1 appl TP BID 14 Days 12/08/16 [Rx] Ipratropium/Albuterol Neb [Duoneb] 3 ml IH [id number] PRN inh 12/08/16 [Rx] Nicotine Patch [Nicoderm] 14 mg TD DAILY 12/08/16 [Rx] Nystatin POWDER [Nystop] 1 appl TP BID bottle 12/08/16 [Rx] predniSONE [PredniSONE] 40 mg PO DAILY #10 tablet 12/08/16 [Rx] Allergies/Adverse Reactions: Allergies Penicillins Allergy (Verified 09/03/16 22:33) Rash - Respiratory Orders Smoking Cessation: Smoking cessation has been advised. For more information, call the [place] Tobacco Quit Line at 6-853-OFED-NOW. CERTIFICATION: I certify that the transfer of the above named patient to an Extended Care Facility is necessary for the continuing treatment of the diagnosis listed. The above information is true and accurate reflection of patient's current condition. Confidential - Redisclosure prohibited without a patient's written consent.
[2016-12-09] MEDS: Ipratropium/Albuterol Neb 3 ML IH SCH ×2 (04:12→10:07)
[2016-12-09] MEDS: *HR* Enoxaparin 40 MG/0.4 ML SYRINGE SQ SCH (06:49)
[2016-12-09] MEDS: Aspirin 325 MG TABLET PO SCH (09:58)
[2016-12-09] MEDS: Diltiazem CD (24hr) 180 MG CAPSULE PO SCH (09:58)
[2016-12-09] MEDS: Nicotine 14 MG PATCH.TD24 TD SCH (09:59)
[2016-12-09] MEDS: Nystatin POWDER 30 GM BOTTLE TP SCH (10:00)
[2016-12-09] MEDS ORDERED: Furosemide 40 MG TABLET PO SCH (10:00)
[2016-12-09] MEDS: MethylPREDNISolone 40 MG/ML VIAL IVP SCH (10:00)
[2016-12-09] MEDS: Budesonide/Formoterol 160/4.5 MDI IH SCH (10:07)
--- NOTE | 2016-12-09 11:32 | Internal Med Progress Note ---
Date of Encounter: 12/09/16 Time of Encounter: 11:30 - Assessment and plan (1) Acute exacerbation of chronic obstructive airways disease Current Visit: Yes Status: Acute Assessment and plan: Improved..back to baseline O2 is at 3 lit now..usually she take 3.5 at home switched to PO steroids cont Duoneb Cont Doxycycline x 5 days course (2) Acute and chronic respiratory failure Current Visit: No Status: Acute Assessment and plan: Due to COPD exacerbation. Treatment as above. improving Qualifiers: Respiratory failure complication: hypoxia and hypercapnia Qualified Code(s) : J96.21 - Acute and chronic respiratory failure with hypoxia; J96.22 - Acute and chronic respiratory failure with hypercapnia (3) Bronchitis Current Visit: Yes Status: Acute Assessment and plan: Pt does have signs of purulent bronchitis , cough with yellowish expectoration, her WBC went up Cont Doxycycline x 5 days course (4) Diastolic CHF Current Visit: No Status: Acute Assessment and plan: Improved had -4635 -ve fluid balance y/d too changed to PO Lasix Echo from 07/22 showed LVEF 65- 70%, Diastolic dysfunction cont Metoprolol, ASA and statin Qualifiers: Congestive heart failure chronicity: chronic Qualified Code(s): I50.32 - Chronic diastolic (congestive) heart failure (5) Atrial fibrillation Current Visit: Yes Status: Acute Assessment and plan: Chroic permanent A fib rate controlled with Cardizem and Metoprolol her CHADSVAC score 4 with Female, HTN, CHF and DM2 ( HbA1C 6.3) - may get benefit anticoagulation Capacity Management Specialist did evaluate the pt, since she has compliance issues, recommend to cont ASA 325mg now and f/u with Card as an out pt to discuss about anticoag options Pt did mention she stop drinking alcohol for a month Qualifiers: Atrial fibrillation type: chronic Qualified Code(s): I48.2 - Chronic atrial fibrillation (6) Eczema Current Visit: Yes Status: Acute Assessment and plan: cont her on hydrocortisone cream Qualifiers: Qualified Code(s): L30.9 - Dermatitis, unspecified (7) Morbid obesity with BMI of 70 and over, adult Current Visit: No Status: Acute (8) Tobacco dependence Current Visit: Yes Status: Acute Assessment and plan: counseled to quit on nicotine patch (9) Physical deconditioning Current Visit: Yes Status: Acute Assessment and plan: need SNF placement for short tem PT / OT Pt is medically stable to d/c to ECF whenever her pre cert gets approved CM / SW working on it - Subjective Interval history: Ms. Mccormick is a 55 year old female with PMH of chronic Afib, CHF, hyperlipidemia, COPD who presented to the ED with difficulty breathing. She does have COPD exacerbation and CHF exacerbation. Pt was started on aggressive IV diuresis and IV steroids. Pt stated she is feeling little better today, her swelling in the legs also better. No CP . Still has some DALE. Denied any more cough with expectoration. Denied any new complaints. Pt was ready to go to ECF yesterday, but waiting on insurance pre cert. - Constitutional Vitals: Temp Pulse Resp BP Pulse Ox 97.8 F 79 21 126/78 94 12/09/16 07:18 12/09/16 09:55 12/09/16 07:18 12/09/16 07:18 12/09/16 10:41 General appearance: Present: A&O X 3, no acute distress, answers questions appropriately - Head Head exam: Present: atraumatic, normal inspection - Respiratory Respiratory exam: Present: decreased breath sounds, wheezes. Absent: respiratory distress, rhonchi, tachypnea - Cardiovascular Cardiovascular exam: Present: irregular rhythm, +S1, +S2. Absent: systolic murmur - GI/Abdominal GI/Abdominal exam: Present: soft. Absent: guarding, rebound, rigid, tenderness - Extremities Exam Extremities exam: Present: pedal edema (improving edema). Absent: calf tenderness, tenderness - Back Exam Back exam: Absent: CVA tenderness (L), CVA tenderness (R) - Psychiatric Psychiatric exam: Present: normal affect, normal mood Internal Medicine: Result - Labs CBC & Chem 7: 12/08/16 04:43 12/08/16 04:43 Consult Discharge Plan - Plan Additional Instructions: need t f/u with PCP in one week Need to f/u with Cardiology in one week Need to f/u with Pulmonary in 1- 2 weeks Referrals: Walter Interiano MD [Partnered Physician] - 02/08/17 1:00 pm Mp Shafer MD [Partnered Physician] - Blanche Caro CNP [Primary Care Provider] - (SENT WEB REQUEST ON 12-05-16 @ 3521) Prescriptions: Doxycycline Hyclate 100 mg PO BID #8 tablet predniSONE [PredniSONE] 40 mg PO DAILY #10 tablet
[2016-12-09 11:34] VITALS: BP 122/73
[2016-12-09] MEDS: Doxycycline 100 MG in 0.9 % Sodium Chloride Mini Bag 100 ML IVPB SCH ×2 (12:30)
[2016-12-10] MEDS ORDERED: predniSONE 20 MG TABLET PO SCH (09:00)
== END 2016-12-09 15:02 | DRG 140 ==
LOC: 2NNU → EMEROO → 2NNU 04:10
PROVIDERS: ADMIT Internal Medicine Hematology & Oncology; ATTEND Internal Medicine

== ENCOUNTER 2017-01-03 10:57 | Inpatient (IN) ==
[2017-01-03] MEDS ORDERED: Ipratropium/Albuterol Neb 3 ML IH ONE (11:14)
[2017-01-03] MEDS ORDERED: Ipratropium/Albuterol Neb 3 ML ONE (11:20)
--- NOTE | 2017-01-03 11:37 | Emergency Department Note ---
Disposition Clinical Impression: COPD exacerbation Acute respiratory failure Qualifiers: Respiratory failure complication: hypoxia Qualified Code(s): J96.01 - Acute respiratory failure with hypoxia Disposition: Admitted As Inpatient Condition: Fair Referrals: NONE,PCP [Primary Care Provider] - Forms: ED Satisfaction Letter Time of Disposition: 13:54 SOB HPI - General Chief Complaint: ED Shortness of Breath/Dyspnea Stated Complaint: MARICEL Time Seen by Provider: 01/03/17 11:01 Source: patient Limitations: no limitations Nursing Notes Reviewed: Yes Vital Signs Reviewed: Yes - History of Present Illness Patient to the ED with a chief complaint of shortness of breath. Onset last night. Coughing up brown phlegm. No chest pain. History of COPD and CHF. Patient with recent admission for same. EMS states that found her with an O2 sat in the 70s. She improved after 1 DuoNeb and a nonrebreather. - Related Data Home Medications Medication Instructions Recorded Confirmed Aclidinium [place] [Tudorza 1 puff IH BID 09/08/15 12/05/16 Pressair] Albuterol Sulfate [Proair Hfa] 2 puff IH Q4H PRN 09/08/15 12/05/16 Budesonide/Formoterol 160/4.5 2 puff IH BIDR 09/08/15 12/05/16 [Symbicort 160/4.5] Simvastatin [Zocor] 40 mg PO HS 09/08/15 12/05/16 Albuterol Neb [Proventil Neb] 2.5 mg IH Q4HR 07/05/16 12/05/16 Oxygen 4 l .ROUTE AD 12/05/16 12/05/16 Previous Rx's Medication Instructions Recorded Aspirin 325 mg PO DAILY #60 tablet 09/19/15 Diltiazem CD (24hr) [Cardizem CD] 360 mg PO DAILY #30 cap.er.24h 09/19/15 Metoprolol [Lopressor] 50 mg PO BID #60 tablet 09/19/15 Furosemide [Lasix] 40 mg PO BIDDIURETIC #20 tablet 09/12/16 Pseudoephedrine [Sudafed] 30 mg PO Q4HR PRN #20 tablet 09/12/16 Doxycycline Hyclate 100 mg PO BID #8 tablet 12/08/16 Hydrocortisone 1% CREAM [Cortaid] 1 appl TP BID 14 Days 12/08/16 Ipratropium/Albuterol Neb [Duoneb] 3 ml IH [id number] PRN inh 12/08/16 Nicotine Patch [Nicoderm] 14 mg TD DAILY 12/08/16 Nystatin POWDER [Nystop] 1 appl TP BID bottle 12/08/16 predniSONE [PredniSONE] 40 mg PO DAILY #10 tablet 12/08/16 Allergies Allergy/AdvReac Type Severity Reaction Status Date / Time Penicillins Allergy Rash Verified 09/03/16 22:33 All systems ED: reviewed and negative except as stated. Constitutional: Denies: fever Cardiovascular: Denies: chest pain, palpitations Respiratory: Reports: cough, dyspnea, wheezes. Denies: hemoptysis Gastrointestinal: Denies: abdominal pain, vomiting, diarrhea Past Medical History - Past Medical History Medical history: Reports: arthritis, asthma, atrial fibrillation, CHF, COPD, diabetes, GERD, hyperlipidemia, hypertension, osteoporosis, valvular heart disease, other Surgical history: Reports: non-contributory, other Psychiatric history: Reports: no psych history, other - Social History Smoking Status: Current every day smoker Smokeless Tobacco Status: No Alcohol use: Reports: rarely Drug use: Reports: none Physical Exam - General Limitations: no limitations General appearance: alert, in no apparent distress Course Course Narrative: Patient better after nebs, however she still has accessory muscle use and tachypnea. We will trial BiPAP. - Reevaluation(s) Reevaluation #1: Dr Merida accepts Time: 13:43 Reevaluation #2: Patient much improved on BiPAP. More comfortable. Speaking full sentences. Admitted to medicine. Vital Signs Temperature 98.1 F 01/03/17 11:05 Pulse Rate 81 01/03/17 11:05 Respiratory Rate 20 01/03/17 11:05 Blood Pressure 137/80 01/03/17 11:05 O2 Sat by Pulse Oximetry 99 01/03/17 11:05 Temperature 98.1 F 01/03/17 11:05 Pulse Rate 63 01/03/17 13:33 Respiratory Rate 22 01/03/17 13:33 Blood Pressure 137/80 01/03/17 13:33 O2 Sat by Pulse Oximetry 98 01/03/17 13:33 Oxygen Delivery Oxygen Delivery Bipap Shortness of Breath/Dyspnea - Lab Data Result diagrams: 01/03/17 12:55 01/03/17 12:03 Lab Results 01/03/17 01/03/17 01/03/17 Range/Units 12:03 12:03 12:03 WBC (4.3-11.1) K/mcL RBC (3.82-4.97) M/mcL Hgb (11.5-15.4) g/dL Hct (35.3-44.9) % MCV (83.0-100.0) fL MCH (28.0-33.3) pg MCHC (31.6-35.5) g/dL RDW (11.5-14.5) % Plt Count (140-400) K/mcL MPV (9.4-12.4) fL Immature Gran % (0-4) % Seg Neutrophils % % Lymphocytes % % Monocytes % % Eosinophils % % Basophils % % Neutrophils # (1.6-8.9) K/mcL Lymphocytes # (0.6-4.6) K/mcL Monocytes # (0.0-1.3) K/mcL Eosinophils # (0.0-0.6) K/mcL Basophils # (0.0-0.2) K/mcL Nucleated RBCs/100 WBC (0) /100 WBC Immature Plt Fraction (1.1-6.1) % Sodium 144 (136-145) mEq/L Potassium 3.6 (3.5-4.5) mEq/L Chloride 103 (98-109) mEq/L Carbon Dioxide 34 H (19-29) mEq/L BUN 12 (7-20) mg/dL Creatinine 0.76 (0.57-1.11) mg/dL Est GFR ( Amer) > 60 (> 60) Est GFR (Non-Af Amer) > 60 (> 60) BUN/Creatinine Ratio 16 (6-26) Glucose 134 H (70-99) mg/dL Calculated Osmolality 300 (280-300) Lactic Acid 1.1 (0.5-2.2) mmol/L Calcium 9.1 (8.6-10.8) mg/dL Troponin I 0.00 (0-0.03) ng/mL B-Natriuretic Peptide (0-100) pg/mL Ur Specimen Adequacy Urine Color (Yellow) Urine Clarity (Clear) Urine pH (5.0-8.0) pH Units Ur Specific [place] (1.010-1.025) Urine Protein (Neg-Trace) mg/dL Urine Glucose (UA) (Normal) mg/dL Urine Ketones (Negative) mg/dL Urine Blood (Negative) Urine Nitrite (Negative) Urine Bilirubin (Negative) Urine Urobilinogen (Normal) mg/dL Ur Leukocyte Esterase (Negative) Urine Microscopic RBC (0-3) per hpf Urine Microscopic WBC (0-3) per hpf Ur Squamous Epith Cells (None-Few) per lpf Ur Transition Epith Cell (None-Few) per hpf Ur Renal Epithelial Cell (None-Few) per hpf Urine Bacteria (None-Few) per hpf Hyaline Casts Urine Mucus (Few) Ur Culture Indicated? (NO) Specimen Rejected 01/03/17 01/03/17 01/03/17 Range/Units 12:03 12:07 12:15 WBC (4.3-11.1) K/mcL RBC (3.82-4.97) M/mcL Hgb (11.5-15.4) g/dL Hct (35.3-44.9) % MCV (83.0-100.0) fL MCH (28.0-33.3) pg MCHC (31.6-35.5) g/dL RDW (11.5-14.5) % Plt Count (140-400) K/mcL MPV (9.4-12.4) fL Immature Gran % (0-4) % Seg Neutrophils % % Lymphocytes % % Monocytes % % Eosinophils % % Basophils % % Neutrophils # (1.6-8.9) K/mcL Lymphocytes # (0.6-4.6) K/mcL Monocytes # (0.0-1.3) K/mcL Eosinophils # (0.0-0.6) K/mcL Basophils # (0.0-0.2) K/mcL Nucleated RBCs/100 WBC (0) /100 WBC Immature Plt Fraction (1.1-6.1) % Sodium (136-145) mEq/L Potassium (3.5-4.5) mEq/L Chloride (98-109) mEq/L Carbon Dioxide (19-29) mEq/L BUN (7-20) mg/dL Creatinine (0.57-1.11) mg/dL Est GFR ( Amer) (> 60) Est GFR (Non-Af Amer) (> 60) BUN/Creatinine Ratio (6-26) Glucose (70-99) mg/dL Calculated Osmolality (280-300) Lactic Acid (0.5-2.2) mmol/L Calcium (8.6-10.8) mg/dL Troponin I (0-0.03) ng/mL B-Natriuretic Peptide 436 H (0-100) pg/mL Ur Specimen Adequacy Urine Color Yellow (Yellow) Urine Clarity Clear (Clear) Urine pH 7.0 (5.0-8.0) pH Units Ur Specific [place] 1.025 (1.010-1.025) Urine Protein 100 H (Neg-Trace) mg/dL Urine Glucose (UA) Normal (Normal) mg/dL Urine Ketones Trace H (Negative) mg/dL Urine Blood Negative (Negative) Urine Nitrite Negative (Negative) Urine Bilirubin Small H (Negative) Urine Urobilinogen Normal (Normal) mg/dL Ur Leukocyte Esterase Trace H (Negative) Urine Microscopic RBC 0-3 (0-3) per hpf Urine Microscopic WBC 3-5 H (0-3) per hpf Ur Squamous Epith Cells Many H (None-Few) per lpf Ur Transition Epith Cell Few (None-Few) per hpf Ur Renal Epithelial Cell Moderate H (None-Few) per hpf Urine Bacteria Few (None-Few) per hpf Hyaline Casts Test Not Performed Urine Mucus Many H (Few) Ur Culture Indicated? YES A (NO) Specimen Rejected MCV Delta 01/03/17 Range/Units 12:55 WBC 10.1 (4.3-11.1) K/mcL RBC 3.46 L (3.82-4.97) M/mcL Hgb 9.4 L (11.5-15.4) g/dL Hct 32.4 L (35.3-44.9) % MCV 93.6 (83.0-100.0) fL MCH 27.2 L (28.0-33.3) pg MCHC 29.0 L (31.6-35.5) g/dL RDW 16.9 H (11.5-14.5) % Plt Count 404 H (140-400) K/mcL MPV 9.2 L (9.4-12.4) fL Immature Gran % 0.5 (0-4) % Seg Neutrophils % 80.9 % Lymphocytes % 12.4 % Monocytes % 5.0 % Eosinophils % 1.0 % Basophils % 0.2 % Neutrophils # 8.2 (1.6-8.9) K/mcL Lymphocytes # 1.3 (0.6-4.6) K/mcL Monocytes # 0.5 (0.0-1.3) K/mcL Eosinophils # 0.1 (0.0-0.6) K/mcL Basophils # 0.0 (0.0-0.2) K/mcL Nucleated RBCs/100 WBC 0.6 H (0) /100 WBC Immature Plt Fraction 2.1 (1.1-6.1) % Sodium (136-145) mEq/L Potassium (3.5-4.5) mEq/L Chloride (98-109) mEq/L Carbon Dioxide (19-29) mEq/L BUN (7-20) mg/dL Creatinine (0.57-1.11) mg/dL Est GFR ( Amer) (> 60) Est GFR (Non-Af Amer) (> 60) BUN/Creatinine Ratio (6-26) Glucose (70-99) mg/dL Calculated Osmolality (280-300) Lactic Acid (0.5-2.2) mmol/L Calcium (8.6-10.8) mg/dL Troponin I (0-0.03) ng/mL B-Natriuretic Peptide (0-100) pg/mL Ur Specimen Adequacy Urine Color (Yellow) Urine Clarity (Clear) Urine pH (5.0-8.0) pH Units Ur Specific [place] (1.010-1.025) Urine Protein (Neg-Trace) mg/dL Urine Glucose (UA) (Normal) mg/dL Urine Ketones (Negative) mg/dL Urine Blood (Negative) Urine Nitrite (Negative) Urine Bilirubin (Negative) Urine Urobilinogen (Normal) mg/dL Ur Leukocyte Esterase (Negative) Urine Microscopic RBC (0-3) per hpf Urine Microscopic WBC (0-3) per hpf Ur Squamous Epith Cells (None-Few) per lpf Ur Transition Epith Cell (None-Few) per hpf Ur Renal Epithelial Cell (None-Few) per hpf Urine Bacteria (None-Few) per hpf Hyaline Casts Urine Mucus (Few) Ur Culture Indicated? (NO) Specimen Rejected Critical Care Time Critical Care Time: Yes Total Critical Care Time: 40 Attestation: Critical care performed: Time is exclusive of separately billable procedures. Time includes: direct patient care, patient reassessment, coordination of patient care, interpretation of data (laboratory data, radiology data, and respiratory data), review of patient's medical records, medical consultation and documentation of patient care. Procedures included in critical care time: Procedures excluded from critical care time:
[2017-01-03] MEDS ORDERED: methylPREDNISolone 125 MG/2 ML VIAL IVP ONE (11:39)
[2017-01-03 12:16] LABS: Bilirubin,Urine Small (Negative); Blood,Urine Negative (Negative); Clarity,Urine Clear (Clear); Color,Urine Yellow (Yellow); Glucose,Urine (UA) Normal (Normal); Ketones,Urine Trace mg/dL (Negative); Leukocyte Esterase,Urine Trace (Negative); Nitrite,Urine Negative (Negative); Protein,Urine 100 mg/dL (Neg-Trace); Specific Gravity,Urine 1.025 (1.010-1.025); Urobilinogen,Urine Normal (Normal)
[2017-01-03 12:19] LABS: Squamous Epithelial Cell,Urine Many per lpf (None-Few)
[2017-01-03 12:35] LABS: BUN/Creatinine Ratio 16 (6-26); Blood Urea Nitrogen 12 mg/dL (7-20); Calcium 9.1 mg/dL (8.6-10.8); Carbon Dioxide 34 mEq/L (19-29); Chloride 103 mEq/L (98-109); Glucose 134 mg/dL (70-99); Osmolality,Calculated 300 (280-300); Potassium 3.6 mEq/L (3.5-4.5); Sodium 144 mEq/L (136-145); eGFR For African Americans > 60 (> 60); eGFR For Non-African Americans > 60 (> 60)
[2017-01-03 12:39] LABS: Transitional Epi Cells,Urine Few per hpf (None-Few)
[2017-01-03 12:40] LABS: Renal Epithelial Cells,Urine Moderate per hpf (None-Few)
[2017-01-03 12:41] LABS: Mucus,Urine Many (Few)
[2017-01-03 12:42] LABS: Bacteria,Urine Few per hpf (None-Few); RBC,Urine 0-3 per hpf (0-3)
[2017-01-03 13:03] LABS: Basophils % 0.2 %; Eosinophils # 0.1 K/mcL (0.0-0.6); Hematocrit 32.4 % (35.3-44.9); Hemoglobin 9.4 g/dL (11.5-15.4); Immature Granulocytes % 0.5 % (0-4); Immature Platelets 2.1 % (1.1-6.1); Lymphocytes # 1.3 K/mcL (0.6-4.6); Lymphocytes % 12.4 %; Mean Corpuscular Hemoglobin 27.2 pg (28.0-33.3); Mean Corpuscular Volume 93.6 fL (83.0-100.0); Mean Platelet Volume 9.2 fL (9.4-12.4); Monocytes # 0.5 K/mcL (0.0-1.3); Neutrophils # 8.2 K/mcL (1.6-8.9); Nucleated Red Blood Cells 0.6 /100 WBC (0); Platelet Count 404 K/mcL (140-400); Red Blood Count 3.46 M/mcL (3.82-4.97); Red Cell Distribution Width 16.9 % (11.5-14.5); Segmented Neutrophils % 80.9 %
[2017-01-03] MEDS ORDERED: Ondansetron 4 MG/2 ML VIAL IVP PRN (14:42)
[2017-01-03] MEDS ORDERED: Naloxone 0.4 MG/ML INJ IVP PRN (14:42)
[2017-01-03] MEDS ORDERED: D5% in Water 1,000 ML IVC PRN (14:47)
[2017-01-03] MEDS ORDERED: *HR* Dextrose 50 % in Water (Syg) 50 ML SYRINGE IVP PRN (14:47)
[2017-01-03] MEDS ORDERED: Dextrose Gel 15 GM PO PRN ×2 (14:47)
--- NOTE | 2017-01-03 15:01 | Internal Med History&Physical ---
<Sheila Trujillo - Last Filed: 01/03/17 16:13> Date of Encounter: 01/03/17 Time of Encounter: 14:59 Assessment and Plan (1) Acute and chronic respiratory failure Current visit: Yes Status: Acute 1 upon arrival of EMS patient was 70% SPO2. After breathing treatments and oxygen she did improve. Suspect this is related to COPD exacerbation. We will continue with bronchodilators and oxygen as well as steroids 2 patient continues to smoke and encourage patient to stop smoking Qualifiers: Respiratory failure complication: hypoxia and hypercapnia Qualified Code(s) : J96.21 - Acute and chronic respiratory failure with hypoxia; J96.22 - Acute and chronic respiratory failure with hypercapnia (2) Acute exacerbation of chronic obstructive airways disease Current visit: Yes Status: Acute 1 the patient has been expressing increasing shortness of breath for past 24 hours she does continue to smoke and has a history of COPD and CHF. Upon arrival of EMS SPO2 was 70% improved after bronchodilators and oxygen. Encouraged patient to stop smoking. 2 we will continue patient's on BiPAP and titrate to maintain SPO2 greater than 92% 3 continue with bronchodilators 4 continue with steroids IV taper (3) Atrial fibrillation Current visit: No Status: Acute 1 she is rate controlled. We will continue with aspirin cardiazem and metoprolol Qualifiers: Atrial fibrillation type: chronic Qualified Code(s): I48.2 - Chronic atrial fibrillation (4) Congestive heart failure Current visit: No Status: Chronic 1 BNP was 436 chest x-ray did show some central congestion without overt pulmonary edema. We will give 1 dose IV Lasix 80 mg once and continue with oral Lasix 40 mg twice a day 2 continue with oxygen Qualifiers: Congestive heart failure type: unspecified congestive heart failure type Congestive heart failure chronicity: acute on chronic Qualified Code(s): I50.9 - Heart failure, unspecified (5) Tobacco use disorder Current visit: No Status: Acute Encourage patient to stop smoking-nicotine patch (6) TYE (obstructive sleep apnea) Current visit: No Status: Chronic 1 BiPAP (7) DVT prophylaxis Current visit: Yes Status: Acute Lovenox subcutaneous Internal Medicine - H&P: HPI Chief complaint: SOB Admitted From: Emergency Dept Plans for Post Hospital Care: Home History of present illness: Ms. Mccormick is a 56 year old female past medical history of congestive heart failure diastolic COPD I will see dependent atrial fibrillation diabetes GERD hypertension hyperlipidemia.heart disease. This patient was recently admitted in with discharge from this facility on 12/08/16 for COPD exacerbation. According to the patient she began to experience increasing shortness of breath as last night. She is dependent upon oxygen as well as she has used breathing treatments with no improvement of symptoms. She does have a productive cough of brown sputum. She denies any chest pain fevers chills nausea vomiting diarrhea. She did call EMS and upon arrival reported that her oxygen saturation was 70%. Her SPO2 did improve after duoneb and placed on nonrebreather. Upon arrival to the ER SPO2 was 99% on nonrebreather. Lab work was obtained there was no leukocytosis BNP was 436 lactate is 1.1 troponin was 0 chemistry within normal limits chest x-ray showed stable moderate and large cardiac silhouette mild basilar atelectasis central congestion without overt pulmonary edema. She was given steroids placed on BiPAP as well as more breathing treatments. Her respiratory status improved and she has been admitted for further workup and evaluation. Presently patient is not [employer] distress she is on nasal cannula now however her SPO2 is low 90s upper 80s. Lung sounds with scattered expiratory wheezes throughout heart sounds are regular S1-S2 with no rubs clicks gallops murmurs noted. Abdomen soft nontender pedal edema to lower extremities bilaterally however patient states this is chronic. She is hemodynamically stable this time. I reviewed case with who agrees with plan Past Med Surg Social Fam HX - Past Medical History Medical history: arthritis, asthma, atrial fibrillation, CHF, COPD, diabetes, GERD, hyperlipidemia, hypertension, osteoporosis, valvular heart disease, other Psychiatric history: no psych history, other - Past Surgical History Surgical History: non-contributory, other - Social History Smoking Status: Current every day smoker Smokeless Tobacco Status: No Alcohol use: rarely Drug use: none - Family History Mother Living Status: Hx Family Cardiac Disorders: Yes Hx Family Endocrine Disorder: Yes (Hypothyroid, DM) Father Living Status: Hx Family Respiratory Disorders: Yes (Asthma, COPD, Emphysema) Internal Medicine - H&P: Meds Aclidinium [place] [Tudorza Pressair] 1 puff IH BID 09/08/15 [History] Albuterol Sulfate [Proair Hfa] 2 puff IH Q4H PRN 09/08/15 [History] Budesonide/Formoterol 160/4.5 [Symbicort 160/4.5] 2 puff IH BIDR 09/08/15 [ History] Simvastatin [Zocor] 40 mg PO HS 09/08/15 [History] Aspirin 325 mg PO DAILY #60 tablet 09/19/15 [Rx] Diltiazem CD (24hr) [Cardizem CD] 360 mg PO DAILY #30 cap.er.24h 09/19/15 [Rx] Metoprolol [Lopressor] 50 mg PO BID #60 tablet 09/19/15 [Rx] Albuterol Neb [Proventil Neb] 2.5 mg IH Q4HR 07/05/16 [History] Furosemide [Lasix] 40 mg PO BIDDIURETIC #20 tablet 09/12/16 [Rx] Oxygen 4 l .ROUTE AD 12/05/16 [History] Ipratropium/Albuterol Neb [Duoneb] 3 ml IH [id number] PRN inh 12/08/16 [Rx] Nicotine Patch [Nicoderm] 14 mg TD DAILY 12/08/16 [Rx] 3 Allergy/AdvReac Type Severity Reaction Status Date / Time Penicillins Allergy Rash Verified 09/03/16 22:33 All Systems PM: A 10-system review of systems was performed and is negative for pertinent findings except as documented above in the HPI. - Constitutional Constitutional: no chills, no fever(s), no night sweats - EENT Eyes: no change in vision, no discharge, no pain, no photophobia Nose, mouth and throat: no dysphagia, no nasal discharge, no neck pain, no sore throat - Cardiovascular Cardiovascular ROS IM: no chest pain, no diaphoresis, no dyspnea, no lightheadedness, no palpitations, no syncope - Respiratory Respiratory: cough, dyspnea on exertion, change in phlegm color - Gastrointestinal Gastrointestinal: no abdominal pain, no diarrhea, no hematemesis, no hematochezia, no melena, no nausea, no vomiting - Genitourinary Genitourinary: no change in urinary stream, no dysuria, no flank pain, no hematuria - Musculoskeletal Musculoskeletal ROS IM: no numbness, no tingling - Integumentary Integumentary IM: no rash, no unusual bruising - Neurological Neurological ROS: no confusion, no convulsions, no focal weakness, no numbness, no tingling, no tremor(s) - Hematologic/Lymphatic Hematologic/Lymphatic: no easy bruising - Constitutional Vitals: Temp Pulse Resp BP Pulse Ox 98.2 F 63 20 137/80 98 01/03/17 14:28 01/03/17 13:33 01/03/17 14:28 01/03/17 14:28 01/03/17 13:33 General appearance: Present: A&O X 3, answers questions appropriately - Head Head exam: Present: atraumatic, normocephalic - Eye Eye exam: Present: PERRL, conjuntiva pink, sclera anicteric Pupils: Present: PERRL - Neck Neck exam general surgery: Present: supple, trachea midline. Absent: lymphadenopathy - Respiratory Respiratory exam: Present: wheezes. Absent: accessory muscle use, rales, rhonchi - Cardiovascular Cardiovascular exam: Present: RRR, +S1, +S2. Absent: diastolic murmur, gallop, rubs, systolic murmur - GI/Abdominal GI/Abdominal exam: Present: normal bowel sounds, soft, no peritoneal signs. Absent: distended, tenderness - Extremities Exam Extremities exam: Present: warm, radial pulses palpable and symmetrical. Absent : calf tenderness, cyanotic, pedal edema - Neurological Exam Neurological exam: Present: CN II-XII intact, oriented X3, no focal deficits. Absent: pronater drift, facial droop, speech deficit - Skin Skin exam: Present: dry, intact Internal Med - H&P Results - Labs CBC & Chem 7: 01/03/17 12:55 01/03/17 12:03 - Diagnostic Studies Other Images Additional comments: Chest X-Ray 01/03/17 11:14 IMPRESSION: 1. Stable mild to moderate enlargement the cardiac silhouette. 2. Mild basilar atelectasis. 3. Central congestion without overt pulmonary edema. D/ / Erasto Reid MD / Erasto Reid MD Interpreting Provider: Erasto Reid MD <Les Merida - Last Filed: 01/03/17 18:38> Date of Encounter: 01/03/17 Internal Medicine - H&P: HPI History of present illness: Ms. Mccormick is a 56 year old female All Systems PM: A 10-system review of systems was performed and is negative for pertinent findings except as documented above in the HPI. - Constitutional Vitals: Temp Pulse Resp BP Pulse Ox 98.3 F 85 22 106/78 89 01/03/17 15:56 01/03/17 17:03 01/03/17 16:24 01/03/17 16:24 01/03/17 17:03 Internal Med - H&P Results - Labs CBC & Chem 7: 01/03/17 12:55 01/03/17 12:03 - Attending Attestation I have personally seen and examined the patient. Patient is morbidly obese and unfortunately still smokes and highly noncompliant as I suspect. Came in with dyspnea however while she is on BiPAP her lungs sound much better than I expected and there is scattered wheezing and clear chest. I think we should continue the current plan with IV antibiotics and IV steroids and nebulizers. Counseling regarding nicotine abuse provided. Plan discussed with advanced nurse practitioner and agreed
[2017-01-03] MEDS ORDERED: Furosemide 40 MG/4 ML VIAL IVP STA (15:56)
[2017-01-03] MEDS ORDERED: Ipratropium/Albuterol Neb 3 ML IH SCH (16:00)
[2017-01-03] MEDS: Ipratropium/Albuterol Neb 3 ML IH SCH ×2 (16:21→23:55)
[2017-01-03] MEDS: Levofloxacin 750 MG/150 ML 750 MG/150 ML BAG IVPB SCH (16:26)
[2017-01-03] MEDS ORDERED: Furosemide 40 MG TABLET PO SCH (17:00)
--- NOTE | 2017-01-03 17:10 | Electrocardiograph Report ---
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
[2017-01-03] MEDS: methylPREDNISolone 125 MG/2 ML VIAL IVP SCH ×2 (17:24→23:26)
[2017-01-03] MEDS: Insulin LISPRO 300 UNITS/3 ML VIAL SQ SCH ×2 (17:25→20:54)
[2017-01-03] MEDS: (Aclidinium Bromide [Tudorza Pressair] 1 PUFF) IH SCH (20:52)
[2017-01-03] MEDS: Albuterol 2.5 MG/3 ML NEBULIZER IH PRN (21:15)
[2017-01-03] MEDS ORDERED: Budesonide/Formoterol 160/4.5 MDI IH SCH (22:00)
[2017-01-03] MEDS: Melatonin 3 MG TABLET PO PRN (23:26)
[2017-01-04] MEDS: Ipratropium/Albuterol Neb 3 ML IH SCH ×4 (04:24→23:30)
[2017-01-04] MEDS: *HR* Enoxaparin 40 MG/0.4 ML SYRINGE SQ SCH (05:51)
[2017-01-04] MEDS: methylPREDNISolone 125 MG/2 ML VIAL IVP SCH ×4 (05:52→23:49)
[2017-01-04 06:35] LABS: Basophils % 0.1 %
[2017-01-04 06:37] LABS: Hematocrit 31.8 % (35.3-44.9); Hemoglobin 9.4 g/dL (11.5-15.4); Immature Granulocytes % 1.2 % (0-4); Lymphocytes # 0.9 K/mcL (0.6-4.6); Lymphocytes % 8.8 %; Mean Corpuscular HGB Conc 29.6 g/dL (31.6-35.5); Mean Corpuscular Hemoglobin 27.3 pg (28.0-33.3); Mean Corpuscular Volume 92.4 fL (83.0-100.0); Mean Platelet Volume 9.6 fL (9.4-12.4); Monocytes # 0.1 K/mcL (0.0-1.3); Nucleated Red Blood Cells 0.6 /100 WBC (0); Platelet Count 342 K/mcL (140-400); Red Blood Count 3.44 M/mcL (3.82-4.97); Red Cell Distribution Width 16.8 % (11.5-14.5); Segmented Neutrophils % 88.9 %
[2017-01-04 06:40] LABS: BUN/Creatinine Ratio 18 (6-26); Blood Urea Nitrogen 15 mg/dL (7-20); Calcium 9.1 mg/dL (8.6-10.8); Carbon Dioxide 36 mEq/L (19-29); Chloride 101 mEq/L (98-109); Glucose 183 mg/dL (70-99); Magnesium 1.9 mg/dL (1.6-2.6); Osmolality,Calculated 302 (280-300); Potassium 4.3 mEq/L (3.5-4.5); Sodium 143 mEq/L (136-145); eGFR For African Americans > 60 (> 60); eGFR For Non-African Americans > 60 (> 60)
[2017-01-04 06:46] LABS: Neutrophils # 9.1 K/mcL (1.6-8.9)
[2017-01-04 07:58] LABS: Anisocytosis 1+ (Not Present); Hypochromasia Present (Not Present); Platelet Estimate Normal (Normal)
[2017-01-04] MEDS: Albuterol 2.5 MG/3 ML NEBULIZER IH PRN ×2 (08:04→21:16)
[2017-01-04] MEDS: Insulin LISPRO 300 UNITS/3 ML VIAL SQ SCH ×4 (08:59→21:04)
[2017-01-04] MEDS: Diltiazem CD (24hr) 180 MG CAPSULE PO SCH (08:59)
[2017-01-04] MEDS: Levofloxacin 750 MG/150 ML 750 MG/150 ML BAG IVPB SCH (08:59)
[2017-01-04] MEDS: Aspirin 325 MG TABLET PO SCH (09:00)
[2017-01-04] MEDS: (Aclidinium Bromide [Tudorza Pressair] 1 PUFF) IH SCH (09:00)
[2017-01-04] MEDS: Nicotine 14 MG PATCH.TD24 TD SCH (09:00)
[2017-01-04] MEDS: Furosemide 40 MG TABLET PO SCH ×2 (09:00→16:57)
--- NOTE | 2017-01-04 09:17 | Internal Med Progress Note ---
Date of Encounter: 01/04/17 Time of Encounter: 09:15 - Assessment and plan (1) Acute exacerbation of chronic obstructive airways disease Current Visit: Yes Status: Acute Assessment and plan: Acute on chronic hypoxic respiratory failure likely secondary to combination of acute COPD exacerbation due to acute severe bacterial bronchitis with also acute diastolic CHF exacerbation Continue Lasix, strict I's and O's BiPAP as needed Solu-Medrol, duo nebs, Levaquin day 2 (2) Acute and chronic respiratory failure Current Visit: Yes Status: Acute Qualifiers: Respiratory failure complication: hypoxia and hypercapnia Qualified Code(s) : J96.21 - Acute and chronic respiratory failure with hypoxia; J96.22 - Acute and chronic respiratory failure with hypercapnia (3) CHF (congestive heart failure) Current Visit: No Status: Suspected Qualifiers: Congestive heart failure type: diastolic Congestive heart failure chronicity: acute on chronic Qualified Code(s): I50.33 - Acute on chronic diastolic (congestive) heart failure (4) Atrial fibrillation Current Visit: No Status: Acute Assessment and plan: Continue metoprolol and Cardizem Qualifiers: Atrial fibrillation type: chronic Qualified Code(s): I48.2 - Chronic atrial fibrillation (5) Tobacco use disorder Current Visit: No Status: Acute (6) Morbid obesity Current Visit: No Status: Acute (7) TYE (obstructive sleep apnea) Current Visit: No Status: Chronic (8) Acute diastolic (congestive) heart failure Current Visit: No Status: Acute (9) Infestation by bed bug Current Visit: No Status: Acute - Subjective Interval history: Feeling less short of breath, denies any chest pain, no fevers overnight, still bringing up some brownish yellowish phlegm, denies any dysuria, no diarrhea or abdominal pain. No headaches - Constitutional Vitals: Temp Pulse Resp BP Pulse Ox 97.5 F L 82 16 102/64 95 01/04/17 06:58 01/04/17 06:58 01/04/17 08:07 01/04/17 06:58 01/04/17 08:07 General appearance: Present: A&O X 3, morbidly obese, answers questions appropriately - Head Head exam: Present: atraumatic, normocephalic - Eye Eye exam: Present: PERRL, conjuntiva pink, sclera anicteric Pupils: Present: PERRL - Neck Neck exam general surgery: Present: supple, trachea midline. Absent: lymphadenopathy - Respiratory Respiratory exam: Present: decreased breath sounds, CTAB, rales, wheezes. Absent: accessory muscle use, rhonchi - Cardiovascular Cardiovascular exam: Present: RRR, +S1, +S2. Absent: diastolic murmur, gallop, rubs, systolic murmur - GI/Abdominal GI/Abdominal exam: Present: distended, normal bowel sounds, soft, no peritoneal signs. Absent: tenderness - Extremities Exam Extremities exam: Present: pedal edema (Bilateral lower extremity lymphedema), warm, radial pulses palpable and symmetrical. Absent: calf tenderness, cyanotic - Neurological Exam Neurological exam: Present: CN II-XII intact, oriented X3, no focal deficits. Absent: pronater drift, facial droop, speech deficit - Skin Skin exam: Present: dry, intact Internal Medicine: Result - Labs CBC & Chem 7: 01/04/17 06:16 01/04/17 06:16 Labs: Short CBC 01/04/17 Range/Units 06:16 WBC 10.2 (4.3-11.1) K/mcL Hgb 9.4 L (11.5-15.4) g/dL Hct 31.8 L (35.3-44.9) % Plt Count 342 (140-400) K/mcL Neutrophils # 9.1 H (1.6-8.9) K/mcL BMP 01/04/17 06:16 Sodium 143 Potassium 4.3 Chloride 101 Carbon Dioxide 36 H BUN 15 Creatinine 0.82 Glucose 183 H Calcium 9.1 Consult Discharge Plan - Plan Referrals: NONE,PCP [Primary Care Provider] -
[2017-01-04] MEDS: Melatonin 3 MG TABLET PO PRN (23:50)
[2017-01-05] MEDS: Ipratropium/Albuterol Neb 3 ML IH SCH ×2 (04:51→10:23)
[2017-01-05] MEDS: *HR* Enoxaparin 40 MG/0.4 ML SYRINGE SQ SCH (05:46)
[2017-01-05] MEDS: methylPREDNISolone 125 MG/2 ML VIAL IVP SCH (05:46)
--- NOTE | 2017-01-05 07:47 | Discharge Summary ---
Date of Encounter: 01/05/17 Time of Encounter: 07:43 - Discharge Diagnosis (1) Acute exacerbation of chronic obstructive airways disease Priority: Primary Status: Acute Comments: Acute on chronic hypoxic respiratory failure likely secondary to combination of acute COPD exacerbation due to acute severe bacterial bronchitis with also acute diastolic CHF exacerbation (2) Acute and chronic respiratory failure Priority: Primary Status: Acute Qualifiers: Respiratory failure complication: hypoxia and hypercapnia Qualified Code(s) : J96.21 - Acute and chronic respiratory failure with hypoxia; J96.22 - Acute and chronic respiratory failure with hypercapnia (3) CHF (congestive heart failure) Priority: Primary Status: Suspected Qualifiers: Congestive heart failure type: diastolic Congestive heart failure chronicity: acute on chronic Qualified Code(s): I50.33 - Acute on chronic diastolic (congestive) heart failure (4) Atrial fibrillation Priority: Secondary Status: Acute Qualifiers: Atrial fibrillation type: chronic Qualified Code(s): I48.2 - Chronic atrial fibrillation (5) Tobacco use disorder Priority: Secondary Status: Acute (6) Morbid obesity Priority: Secondary Status: Acute (7) TYE (obstructive sleep apnea) Priority: Secondary Status: Chronic (8) Acute diastolic (congestive) heart failure Priority: Primary Status: Acute (9) Infestation by bed bug Priority: Secondary Status: Acute - Discharge Medications Prescriptions: Furosemide [Lasix] 40 mg PO BIDDIURETIC #60 tablet levoFLOXacin [Levaquin] 750 mg PO DAILY #4 tablet predniSONE [PredniSONE] 10 mg PO DAILY 20 Days Home Medications: Aclidinium [address] [Tudorza Pressair] 1 puff IH BID 09/08/15 [History] Albuterol Sulfate [Proair Hfa] 2 puff IH Q4H PRN 09/08/15 [History] Budesonide/Formoterol 160/4.5 [Symbicort 160/4.5] 2 puff IH BIDR 09/08/15 [ History] Simvastatin [Zocor] 40 mg PO HS 09/08/15 [History] Aspirin 325 mg PO DAILY #60 tablet 09/19/15 [Rx] Diltiazem CD (24hr) [Cardizem CD] 360 mg PO DAILY #30 cap.er.24h 09/19/15 [Rx] Metoprolol [Lopressor] 50 mg PO BID #60 tablet 09/19/15 [Rx] Albuterol Neb [Proventil Neb] 2.5 mg IH Q4HR 07/05/16 [History] Oxygen 4 l .ROUTE AD 12/05/16 [History] Ipratropium/Albuterol Neb [Duoneb] 3 ml IH [id number] PRN inh 12/08/16 [Rx] Nicotine Patch [Nicoderm] 14 mg TD DAILY 12/08/16 [Rx] Furosemide [Lasix] 40 mg PO BIDDIURETIC #60 tablet 01/05/17 [Rx] levoFLOXacin [Levaquin] 750 mg PO DAILY #4 tablet 01/05/17 [Rx] predniSONE [PredniSONE] 10 mg PO DAILY 20 Days 01/05/17 [Rx] Allergies/Adverse Reactions: 3 Allergy/AdvReac Type Severity Reaction Status Date / Time Penicillins Allergy Rash Verified 09/03/16 22:33 Date of admission: 01/04/17 10:29 Primary care physician: PCP NONE - Patient Status Disposition: Home, Self-Care Condition: Good Overall status at discharge: patient is back to baseline - Discharge Instructions Follow Up With: NONE,PCP [Primary Care Provider] - Additional Instructions: Follow-up with primary care physician within the next 7 days. Continue prednisone taper, completed 4 more days of Levaquin, continue Lasix at home, oxygen therapy and quit smoking - Diet and Activity Activity: increase activity as tolerated, wear oxygen at all times Diet: diabetic diet Hospital course: Ms. Mccormick is a 56 year old female with a past medical history of diastolic congestive heart failure , COPD oxygen dependent, atrial fibrillation not on anticoagulation, diabetes not insulin-dependent, GERD, hypertension, hyperlipidemia, bedbug infestation ( was on isolation) who was recently admitted and discharged from this facility on 12/08/16 for COPD exacerbation. According to the patient, she began to experience increasing shortness of breath as last night. She is dependent upon oxygen as well as she has used breathing treatments with no improvement of symptoms. She did have a productive cough of brown sputum. She denied any chest pain fevers chills nausea vomiting diarrhea. She did call EMS and upon arrival reported that her oxygen saturation was 70%. Her SPO2 did improve after duoneb and placed on nonrebreather. Upon arrival to the ER SPO2 was 99% on nonrebreather. Lab work was obtained there was no leukocytosis BNP was 436 lactate is 1.1 troponin was 0 chemistry within normal limits chest x-ray showed stable moderate and large cardiac silhouette mild basilar atelectasis central congestion without overt pulmonary edema. She was given Solu-Medrol and placed on BiPAP as well as more breathing treatments. Her respiratory status improved also with the use of Lasix, has received 3 days of Levaquin and is a stable to be discharged. Time spent discussing smoking cessation with patient: 3 to 10 minutes - Time Spent with Patient Total time spent providing and/or coordinating discharge services: Greater than 30 minutes (40 min) - Constitutional Vitals: Temp Pulse Resp BP Pulse Ox 97.8 F 82 16 126/78 96 01/05/17 06:50 01/05/17 06:50 01/05/17 06:50 01/05/17 06:50 01/05/17 06:50 General appearance: Present: A&O X 3, morbidly obese, answers questions appropriately - Head Head exam: Present: atraumatic, normocephalic - Eye Eye exam: Present: PERRL, conjuntiva pink, sclera anicteric Pupils: Present: PERRL - Neck Neck exam general surgery: Present: supple, trachea midline. Absent: lymphadenopathy - Respiratory Respiratory exam: Present: decreased breath sounds, CTAB. Absent: accessory muscle use, rales, rhonchi, wheezes - Cardiovascular Cardiovascular exam: Present: RRR, +S1, +S2. Absent: diastolic murmur, gallop, rubs, systolic murmur - GI/Abdominal GI/Abdominal exam: Present: normal bowel sounds, soft, no peritoneal signs. Absent: distended, tenderness - Extremities Exam Extremities exam: Present: warm, radial pulses palpable and symmetrical. Absent : calf tenderness, cyanotic, pedal edema - Neurological Exam Neurological exam: Present: CN II-XII intact, oriented X3, no focal deficits. Absent: pronater drift, facial droop, speech deficit - Skin Skin exam: Present: dry, intact
--- NOTE | 2017-01-05 07:52 | Physician Discharge Referral ---
Home Health/Hosp Referral Info Transfer to: Home Health Provider in Charge Post Discharge: PCP - Diagnosis (1) Acute exacerbation of chronic obstructive airways disease Status: Acute (2) Acute and chronic respiratory failure Status: Acute (3) CHF (congestive heart failure) Status: Suspected (4) Atrial fibrillation Status: Acute (5) Tobacco use disorder Status: Acute (6) Morbid obesity Status: Acute (7) TYE (obstructive sleep apnea) Status: Chronic (8) Acute diastolic (congestive) heart failure Status: Acute (9) Infestation by bed bug Status: Acute - Respiratory Orders Oxygen / L per min Smoking Cessation: Smoking cessation has been advised. For more information, call the [place] Tobacco Quit Line at 0-545-ERDW-NOW. - Diet/Nutrition Diet/Nutrition Orders: No Added Salt (SELIN) (Diabetic diet) - Services Needed Following services are medically necessary services: Home Health Aide, Physical Therapy Home Care Orders: Follow-up with primary care physician within the next 7 days. Continue prednisone taper, completed 4 more days of Levaquin, continue Lasix at home, oxygen therapy and quit smoking - Transfer Medications Prescriptions: Furosemide [Lasix] 40 mg PO BIDDIURETIC #60 tablet levoFLOXacin [Levaquin] 750 mg PO DAILY #4 tablet predniSONE [PredniSONE] 10 mg PO DAILY 20 Days Home Medications: Aclidinium [place] [Tudorza Pressair] 1 puff IH BID 09/08/15 [History] Albuterol Sulfate [Proair Hfa] 2 puff IH Q4H PRN 09/08/15 [History] Budesonide/Formoterol 160/4.5 [Symbicort 160/4.5] 2 puff IH BIDR 09/08/15 [ History] Simvastatin [Zocor] 40 mg PO HS 09/08/15 [History] Aspirin 325 mg PO DAILY #60 tablet 09/19/15 [Rx] Diltiazem CD (24hr) [Cardizem CD] 360 mg PO DAILY #30 cap.er.24h 09/19/15 [Rx] Metoprolol [Lopressor] 50 mg PO BID #60 tablet 09/19/15 [Rx] Albuterol Neb [Proventil Neb] 2.5 mg IH Q4HR 07/05/16 [History] Oxygen 4 l .ROUTE AD 12/05/16 [History] Ipratropium/Albuterol Neb [Duoneb] 3 ml IH [id number] PRN inh 12/08/16 [Rx] Nicotine Patch [Nicoderm] 14 mg TD DAILY 12/08/16 [Rx] Furosemide [Lasix] 40 mg PO BIDDIURETIC #60 tablet 01/05/17 [Rx] levoFLOXacin [Levaquin] 750 mg PO DAILY #4 tablet 01/05/17 [Rx] predniSONE [PredniSONE] 10 mg PO DAILY 20 Days 01/05/17 [Rx] Allergies/Adverse Reactions: 3 Allergy/AdvReac Type Severity Reaction Status Date / Time Penicillins Allergy Rash Verified 09/03/16 22:33 Certification: Further, I certify that my clinical findings support that this patient is homebound (i.e. absences from home require considerable and taxing effort and are for medical reasons or caodaism services or infrequently or short duration when for other reasons) because: Homebound Reason: Patient requires assistance of a person or device to safely leave home Attestation: My signature below is to certify that this patient is under my care and that I, or nurse practitioner, or a physician's operations and intelligence assistant working with me, has a face-to -face encounter with this patient.
[2017-01-05] MEDS: Nicotine 14 MG PATCH.TD24 TD SCH (08:06)
[2017-01-05] MEDS: Aspirin 325 MG TABLET PO SCH (08:06)
[2017-01-05] MEDS: Furosemide 40 MG TABLET PO SCH (08:06)
[2017-01-05] MEDS: Diltiazem CD (24hr) 180 MG CAPSULE PO SCH (08:06)
[2017-01-05] MEDS: Insulin LISPRO 300 UNITS/3 ML VIAL SQ SCH (08:07)
[2017-01-05] MEDS ORDERED: Levofloxacin 500 MG/100 ML 500 MG/100 ML BAG IVPB SCH (09:00)
[2017-01-05 10:43] VITALS: BP 106/65
== END 2017-01-05 13:52 | disposition home or self-care (01) | DRG 140 ==
LOC: 2NNU 10:57 → EMEROO 10:57 → 2NNU 14:39
PROVIDERS: ADMIT Internal Medicine; ATTEND Internal Medicine

== ENCOUNTER 2017-01-23 09:18 | Inpatient (IN) ==
[2017-01-23] MEDS ORDERED: Ipratropium/Albuterol Neb 3 ML IH ONE (09:19)
--- NOTE | 2017-01-23 09:24 | Emergency Department Note ---
Disposition Clinical Impression: Acute exacerbation of chronic obstructive airways disease Disposition: Admitted As Inpatient Condition: Fair Referrals: NONE,PCP [Primary Care Provider] - Forms: ED Satisfaction Letter Time of Disposition: 10:32 SOB HPI - General Chief Complaint: ED Shortness of Breath/Dyspnea Stated Complaint: MARICEL/COPD Time Seen by Provider: 01/23/17 09:19 Source: patient, EMS Mode of arrival: EMS Limitations: no limitations Nursing Notes Reviewed: Yes Vital Signs Reviewed: Yes - History of Present Illness 56-year-old with a history COPD who has had increasing shortness of breath for the last several days. Patient continues to smoke. On squad arrival significantly dyspneic and placed on BiPAP. Patient has had a cough denies fevers. Patient was given a breathing treatment and Solu-Medrol 125 mg IV by squad Pt Subjective Complaint: shortness of breath, cough Onset (ago): day(s) (Several) Context: recent illness, smoke/fume exposure (Continues to smoke) Severity: moderate Consistency/Duration: constant Improves with: nothing Worsens with: exertion Known history of: COPD Associated symptoms: Reports: cough Treatment prior to arrival: oxygen, bronchodilator, NIPPV, other (Solu-Medrol 125 mg) Cough present: Yes Cough Description: Involuntary Cough Frequency: Intermittent - Related Data Home Medications Medication Instructions Recorded Confirmed Aclidinium [place] [Tudorza 1 puff IH BID 09/08/15 01/23/17 Pressair] Albuterol Sulfate [Proair Hfa] 2 puff IH Q4H PRN 09/08/15 01/23/17 Budesonide/Formoterol 160/4.5 2 puff IH BIDR 09/08/15 01/23/17 [Symbicort 160/4.5] Simvastatin [Zocor] 40 mg PO HS 09/08/15 01/23/17 Albuterol Neb [Proventil Neb] 2.5 mg IH Q4HR 07/05/16 01/23/17 Oxygen 4 l .ROUTE AD 12/05/16 01/23/17 Previous Rx's Medication Instructions Recorded Aspirin 325 mg PO DAILY #60 tablet 09/19/15 Diltiazem CD (24hr) [Cardizem CD] 360 mg PO DAILY #30 cap.er.24h 09/19/15 Metoprolol [Lopressor] 50 mg PO BID #60 tablet 09/19/15 Ipratropium/Albuterol Neb [Duoneb] 3 ml IH [id number] PRN inh 12/08/16 Furosemide [Lasix] 40 mg PO BIDDIURETIC #60 tablet 01/05/17 predniSONE [PredniSONE] 10 mg PO DAILY 20 Days 01/05/17 Allergies Allergy/AdvReac Type Severity Reaction Status Date / Time Penicillins Allergy Rash Verified 09/03/16 22:33 All systems ED: reviewed and negative except as stated. Constitutional: Denies: fever, chills, weakness, weight change Eyes: Denies: eye pain, eye discharge, vision change ENT ED: Denies: ear pain, throat pain, dental pain, hearing loss, epistaxis, congestion, dysphagia Cardiovascular: Denies: chest pain, palpitations, dyspnea on exertion, edema, syncope Respiratory: Reports: cough, dyspnea, wheezes. Denies: hemoptysis, stridor Gastrointestinal: Denies: abdominal pain, nausea, vomiting, diarrhea, constipation, hematemesis, melena, hematochezia Genitourinary: Denies: dysuria, frequency, hematuria, discharge Musculoskeletal: Denies: back pain, neck pain, arthralgia, myalgia Integumentary: Denies: rash, abrasion, lesions Neurological: Denies: headache, weakness, numbness, paresthesias, confusion, abnormal gait, vertigo Psychiatric: Denies: anxiety, depression, suicidal thoughts, homicidal thoughts , auditory hallucinations, visual hallucinations Endocrine: Denies: fatigue Hematological/Lymphatic: Denies: easy bleeding, easy bruising Allergic/Immunologic: Denies: facial swelling, urticaria Past Medical History - Past Medical History Medical history: Reports: arthritis, asthma, atrial fibrillation, CHF, COPD, diabetes, GERD, hyperlipidemia, hypertension, osteoporosis, valvular heart disease, other Surgical history: Reports: non-contributory, other Psychiatric history: Reports: no psych history, other - Social History Smoking Status: Current every day smoker Smokeless Tobacco Status: No Alcohol use: Reports: rarely Drug use: Reports: none Physical Exam - General Limitations: no limitations General appearance: alert, in no apparent distress - Head Head exam: atraumatic, normocephalic, normal inspection - Eye Eye exam: Present: normal appearance, PERRL, EOMI - ENT ENT exam: normal exam, normal oropharynx, mucous membranes moist - Neck Neck exam: Present: normal inspection, full ROM, trachea midline - Chest Chest inspection: Present: normal inspection, symmetric chest wall rise - Respiratory Respiratory exam: Present: wheezes - Cardiovascular Cardiovascular exam: Present: regular rate, normal rhythm, normal heart sounds - Abdominal Exam Abdominal exam: Present: soft, Non-Tender. Absent: tenderness, distention, guarding, rebound, rigidity - Extremities Exam Extremities exam: Present: normal inspection, full ROM. Absent: tenderness, pedal edema - Expanded Lower Extremity Exam Neurovascular/Tendon exam: Absent: motor deficit, sensory deficit, tendon deficit Gait: observed and normal - Back Exam Back exam: Present: normal inspection, full ROM. Absent: tenderness - Neurological Exam Neurological exam: Present: alert, oriented X3 - Psychiatric Psychiatric exam: Present: normal affect, normal mood - Skin Skin exam: Present: warm, dry, intact, normal color Course - Reevaluation(s) Reevaluation #1: 56-year-old with history COPD comes in with increasing shortness of breath. Patient is pulse ox was in the 70s when the squad picked her up and placed her on BiPAP she did improve. Patient will be admitted for further evaluation and treatment. Time: 10:32 - Consultations Consultation #1: Discussed with Dr. Hand, admit Time: 11:09 Vital Signs Temperature 97.9 F 01/23/17 09:19 Pulse Rate 90 01/23/17 09:19 Respiratory Rate 33 01/23/17 09:19 Blood Pressure 131/83 01/23/17 09:19 O2 Sat by Pulse Oximetry 100 01/23/17 09:19 Temperature 97.9 F 01/23/17 09:19 Pulse Rate 92 01/23/17 11:00 Respiratory Rate 30 01/23/17 11:00 Blood Pressure 105/77 01/23/17 11:00 O2 Sat by Pulse Oximetry 99 01/23/17 11:00 Oxygen Delivery Oxygen Delivery Bipap Shortness of Breath/Dyspnea - Lab Data Lab results reviewed: Yes I reviewed the patient's lab results. Result diagrams: 01/23/17 09:46 01/23/17 09:46 Lab Results 01/23/17 01/23/17 01/23/17 Range/Units 09:46 09:46 09:46 WBC 12.1 H (4.3-11.1) K/mcL RBC 3.83 (3.82-4.97) M/mcL Hgb 9.9 L (11.5-15.4) g/dL Hct 35.3 (35.3-44.9) % MCV 92.2 (83.0-100.0) fL MCH 25.8 L (28.0-33.3) pg MCHC 28.0 L (31.6-35.5) g/dL RDW 17.9 H (11.5-14.5) % Plt Count 302 (140-400) K/mcL MPV 9.5 (9.4-12.4) fL Immature Gran % 0.6 (0-4) % Seg Neutrophils % 80.2 % Lymphocytes % 13.2 % Monocytes % 4.6 % Eosinophils % 1.2 % Basophils % 0.2 % Neutrophils # 9.7 H (1.6-8.9) K/mcL Lymphocytes # 1.6 (0.6-4.6) K/mcL Monocytes # 0.6 (0.0-1.3) K/mcL Eosinophils # 0.2 (0.0-0.6) K/mcL Basophils # 0.0 (0.0-0.2) K/mcL Nucleated RBCs/100 WBC 0.2 H (0) /100 WBC ABG pH (7.32-7.45) pH Units ABG pCO2 (35-45) mmHg ABG pO2 (85-104) mmHg ABG HCO3 (21-27) mEq/L ABG Total CO2 (20-26) mEq/L ABG O2 Saturation (95-98) % ABG Base Excess (-2.0 to 3.0) mEq/L Blood Gas Modality Inspired O2 % Sodium 143 (136-145) mEq/L Potassium 4.0 (3.5-4.5) mEq/L Chloride 102 (98-109) mEq/L Carbon Dioxide 35 H (19-29) mEq/L BUN 16 (7-20) mg/dL Creatinine 0.83 (0.57-1.11) mg/dL Est GFR ( Amer) > 60 (> 60) Est GFR (Non-Af Amer) > 60 (> 60) BUN/Creatinine Ratio 19 (6-26) Glucose 149 H (70-99) mg/dL Calculated Osmolality 300 (280-300) Lactic Acid 1.1 (0.5-2.2) mmol/L Calcium 9.1 (8.6-10.8) mg/dL Troponin I (0-0.03) ng/mL B-Natriuretic Peptide (0-100) pg/mL 01/23/17 01/23/17 01/23/17 Range/Units 09:46 09:46 10:02 WBC (4.3-11.1) K/mcL RBC (3.82-4.97) M/mcL Hgb (11.5-15.4) g/dL Hct (35.3-44.9) % MCV (83.0-100.0) fL MCH (28.0-33.3) pg MCHC (31.6-35.5) g/dL RDW (11.5-14.5) % Plt Count (140-400) K/mcL MPV (9.4-12.4) fL Immature Gran % (0-4) % Seg Neutrophils % % Lymphocytes % % Monocytes % % Eosinophils % % Basophils % % Neutrophils # (1.6-8.9) K/mcL Lymphocytes # (0.6-4.6) K/mcL Monocytes # (0.0-1.3) K/mcL Eosinophils # (0.0-0.6) K/mcL Basophils # (0.0-0.2) K/mcL Nucleated RBCs/100 WBC (0) /100 WBC ABG pH 7.34 (7.32-7.45) pH Units ABG pCO2 68 H (35-45) mmHg ABG pO2 192 H (85-104) mmHg ABG HCO3 37 H (21-27) mEq/L ABG Total CO2 38.8 H (20-26) mEq/L ABG O2 Saturation 100 H (95-98) % ABG Base Excess 8.9 H (-2.0 to 3.0) mEq/L Blood Gas Modality BIPAP Inspired O2 60 % Sodium (136-145) mEq/L Potassium (3.5-4.5) mEq/L Chloride (98-109) mEq/L Carbon Dioxide (19-29) mEq/L BUN (7-20) mg/dL Creatinine (0.57-1.11) mg/dL Est GFR ( Amer) (> 60) Est GFR (Non-Af Amer) (> 60) BUN/Creatinine Ratio (6-26) Glucose (70-99) mg/dL Calculated Osmolality (280-300) Lactic Acid (0.5-2.2) mmol/L Calcium (8.6-10.8) mg/dL Troponin I 0.00 (0-0.03) ng/mL B-Natriuretic Peptide 312 H (0-100) pg/mL - Radiology Data Radiology results reviewed: Yes I reviewed the patient's radiology results. Chest X-Ray 01/23/17 09:19 IMPRESSION: Cardiomegaly with mild interstitial pulmonary edema suggesting mild CHF. D/ / Diomeeds Sifuentes MD / Diomedes Sifuentes MD Interpreting Provider: Diomedes Sifuentes MD - EKG Data EKG attestation: Yes I reviewed and interpreted this EKG. Rate: Reports: normal Rhythm: Reports: A.Fib When compared to previous EKG there are: no significant changes (01/03/2017) Interpretation: Reports: no acute changes
[2017-01-23 09:59] LABS: Basophils % 0.2 %; Eosinophils % 1.2 %; Hemoglobin 9.9 g/dL (11.5-15.4); Mean Platelet Volume 9.5 fL (9.4-12.4); Nucleated Red Blood Cells 0.2 /100 WBC (0)
[2017-01-23 10:00] LABS: Hematocrit 35.3 % (35.3-44.9); Immature Granulocytes % 0.6 % (0-4); Lymphocytes # 1.6 K/mcL (0.6-4.6); Lymphocytes % 13.2 %; Mean Corpuscular Hemoglobin 25.8 pg (28.0-33.3); Mean Corpuscular Volume 92.2 fL (83.0-100.0); Monocytes # 0.6 K/mcL (0.0-1.3); Monocytes % 4.6 %; Neutrophils # 9.7 K/mcL (1.6-8.9); Platelet Count 302 K/mcL (140-400); Red Blood Count 3.83 M/mcL (3.82-4.97); Red Cell Distribution Width 17.9 % (11.5-14.5); Segmented Neutrophils % 80.2 %
[2017-01-23 10:02] LABS: Eosinophils # 0.2 K/mcL (0.0-0.6)
[2017-01-23 10:08] LABS: ABG Base Excess 8.9 mEq/L (-2.0 to 3.0); ABG HCO3 37 mEq/L (21-27); ABG Oxygen Saturation 100 % (95-98); ABG PCO2 68 mmHg (35-45); ABG PH 7.34 pH Units (7.32-7.45); ABG PO2 192 mmHg (85-104); ABG TCO2 38.8 mEq/L (20-26)
[2017-01-23 10:09] LABS: Blood Gas FiO2 60 %
[2017-01-23 10:12] LABS: BUN/Creatinine Ratio 19 (6-26); Blood Urea Nitrogen 16 mg/dL (7-20); Calcium 9.1 mg/dL (8.6-10.8); Carbon Dioxide 35 mEq/L (19-29); Chloride 102 mEq/L (98-109); Glucose 149 mg/dL (70-99); Osmolality,Calculated 300 (280-300); Sodium 143 mEq/L (136-145); eGFR For African Americans > 60 (> 60); eGFR For Non-African Americans > 60 (> 60)
[2017-01-23] MEDS ORDERED: Furosemide 40 MG/4 ML VIAL IVP ONE (10:20)
[2017-01-23] MEDS ORDERED: NON-FORMULARY MEDICATION 1 EACH EACH (Oxygen [Oxygen] 4 L) SCH (11:45)
--- NOTE | 2017-01-23 11:55 | Internal Med History&Physical ---
Date of Encounter: 01/23/17 Time of Encounter: 11:00 Assessment and Plan (1) Acute respiratory failure with hypoxia and hypercapnia Current visit: Yes Status: Acute Multi-factorial respiratory failure: 1) acute and chronic diastolic CHF 2) hypertension 3) COPD but no obvious acute exacerbation 4) ongoing tobacco abuse 5) morbid obesity with suspected obesity hypoventilation syndrome I do not see an obvious bacterial infection. Please see discussion below (2) Acute on chronic diastolic CHF (congestive heart failure) Current visit: Yes Status: Acute Patient is acutely in congestive heart failure. Predominantly diastolic type heart failure as indicated above, she also has pulmonary hypertension. She is receiving BiPAP. I increased her Lasix to 80 mg IV twice a day, I also uptitrated her beta thad to Lopressor 50 mg by mouth twice a day. We will continue with BiPAP. She is improving. Need to closely monitor input and output. (3) COPD (chronic obstructive pulmonary disease) Current visit: No Status: Acute She is in respiratory distress but I suspect this is more due to CHF and COPD. She was recently treated for a COPD exacerbation. I do not see wheezing on my exam. I am not convinced she is having further COPD exacerbation. Will attempt diuresis, and reserve further steroids if she does not improve or if her condition worsens. We will use aggressive bronchodilator therapy, add mucolytic's, titrate O2 sat to a level of 90-91%. I would not go much higher than this. Qualifiers: COPD type: unspecified COPD Qualified Code(s): J44.9 - Chronic obstructive pulmonary disease, unspecified (4) TYE (obstructive sleep apnea) Current visit: No Status: Chronic states she has been compliant with her CPAP at night. We will need to continue this. (5) Tobacco abuse Current visit: Yes Status: Acute NicoDerm patch, will need extensive counseling as she absolutely has to quit. I did not psychosocial rehabilitation counselor her in her current state of distress. (6) Hypertension Current visit: Yes Status: Acute I did increase her beta thad as mentioned above, will need to continue to closely monitor and uptitrate medications as able Qualifiers: Hypertension type: essential hypertension Qualified Code(s): I10 - Essential (primary) hypertension (7) Morbid obesity Current visit: No Status: Acute Internal Medicine - H&P: HPI Admitted From: Emergency Dept Plans for Post Hospital Care: Home History of present illness: Ms. Mccormick is a 56 year old female This is a 56-year-old female with multiple medical problems who was just discharged from our facility on 01/05/2017. Please see below for hospital course;; Ms. Mccormick is a 56 year old female with a past medical history of diastolic congestive heart failure , COPD oxygen dependent, atrial fibrillation not on anticoagulation, diabetes not insulin-dependent, GERD, hypertension, hyperlipidemia, bedbug infestation ( was on isolation) who was recently admitted and discharged from this facility on 12/08/16 for COPD exacerbation. According to the patient, she began to experience increasing shortness of breath as last night. She is dependent upon oxygen as well as she has used breathing treatments with no improvement of symptoms. She did have a productive cough of brown sputum. She denied any chest pain fevers chills nausea vomiting diarrhea. She did call EMS and upon arrival reported that her oxygen saturation was 70%. Her SPO2 did improve after duoneb and placed on nonrebreather. Upon arrival to the ER SPO2 was 99% on nonrebreather. Lab work was obtained there was no leukocytosis BNP was 436 lactate is 1.1 troponin was 0 chemistry within normal limits chest x-ray showed stable moderate and large cardiac silhouette mild basilar atelectasis central congestion without overt pulmonary edema. She was given Solu-Medrol and placed on BiPAP as well as more breathing treatments. Her respiratory status improved also with the use of Lasix, has received 3 days of Levaquin and is a stable to be discharged. 01/23: Patient presents with a 3 to four-day history of progressive shortness of breath. She has had a cough productive of white sometimes yellow sputum. No fevers or chills. No chest pain. She states that she has gained lots of weight with increased swelling in her extremities. Patient claims to have been compliant with all her medication and nocturnal CPAP for her sleep apnea. Admit that she does not follow a particular diet. Patient presented to the emergency department in fulminant respiratory distress with vital signs otherwise been fairly stable, requiring BiPAP to maintain sats in the 90s. On exam she was diaphoretic and in respiratory distress. Poor hygiene. Lungs showed crackles bilaterally and occasional rhonchi, heart regular rate and rhythm, extremities showed massive edema with chronic venous stasis changes. Labs showed a white count of 12.1, hemoglobin 9.9. Blood gas 7.34, PO2 68. BUN /creatinine 16 over 0.83, serum bicarbonate 35. Chest x-ray showed mild CHF. Troponin negative. BNP elevated at 312. Review of last echo in July 2016 showed EF of 65-70%, with a dilated right ventricle and pulmonic pressures estimated at 60 mmHg. Patient admits she continues to smoke. Patient is now admitted for acute on chronic diastolic CHF, no obvious evidence of pneumonia, not convinced she is having a COPD exacerbation. It appears to be primarily a fluid issue today, but will reconsider digital steroids if she does not improve. A total of 51 m in critical care time was spent in care and managment of this pt. Past Med Surg Social Fam HX - Past Medical History Medical history: arthritis, asthma, atrial fibrillation, CHF, COPD, diabetes, GERD, hyperlipidemia, hypertension, osteoporosis, valvular heart disease, other Psychiatric history: no psych history, other - Past Surgical History Surgical History: non-contributory, other - Social History Smoking Status: Current every day smoker Smokeless Tobacco Status: No Alcohol use: rarely Drug use: none - Family History Mother Living Status: Hx Family Cardiac Disorders: Yes Hx Family Endocrine Disorder: Yes (Hypothyroid, DM) Father Living Status: Hx Family Respiratory Disorders: Yes (Asthma, COPD, Emphysema) Internal Medicine - H&P: Meds Aclidinium [place] [Tudorza Pressair] 1 puff IH BID 09/08/15 [History] Albuterol Sulfate [Proair Hfa] 2 puff IH Q4H PRN 09/08/15 [History] Budesonide/Formoterol 160/4.5 [Symbicort 160/4.5] 2 puff IH BIDR 09/08/15 [ History] Simvastatin [Zocor] 40 mg PO HS 09/08/15 [History] Aspirin 325 mg PO DAILY #60 tablet 09/19/15 [Rx] Diltiazem CD (24hr) [Cardizem CD] 360 mg PO DAILY #30 cap.er.24h 09/19/15 [Rx] Metoprolol [Lopressor] 50 mg PO BID #60 tablet 09/19/15 [Rx] Albuterol Neb [Proventil Neb] 2.5 mg IH Q4HR 07/05/16 [History] Oxygen 4 l .ROUTE AD 12/05/16 [History] Ipratropium/Albuterol Neb [Duoneb] 3 ml IH [id number] PRN inh 12/08/16 [Rx] Furosemide [Lasix] 40 mg PO BIDDIURETIC #60 tablet 01/05/17 [Rx] predniSONE [PredniSONE] 10 mg PO DAILY 20 Days 01/05/17 [Rx] 3 Allergy/AdvReac Type Severity Reaction Status Date / Time Penicillins Allergy Rash Verified 09/03/16 22:33 All Systems PM: A 10-system review of systems was performed and is negative for pertinent findings except as documented above in the HPI. - Constitutional Vitals: Temp Pulse Resp BP Pulse Ox 97.9 F 92 30 105/77 99 01/23/17 09:19 01/23/17 11:00 01/23/17 11:00 01/23/17 11:00 01/23/17 11:00 General appearance: Present: A&O X 3, morbidly obese Exam: Mod distress wiht increased work of breathing, wearing bipap mask - Head Head exam: Present: atraumatic, normocephalic - Eye Eye exam: Present: PERRL, conjuntiva pink, sclera anicteric Pupils: Present: PERRL - Neck Neck exam general surgery: Present: supple, trachea midline. Absent: lymphadenopathy - Respiratory Respiratory exam: Present: accessory muscle use, rales, respiratory distress, rhonchi. Absent: wheezes - Cardiovascular Cardiovascular exam: Present: RRR, +S1, +S2. Absent: diastolic murmur, gallop, rubs, systolic murmur - GI/Abdominal GI/Abdominal exam: Present: normal bowel sounds, soft, no peritoneal signs. Absent: distended, tenderness - Extremities Exam Extremities exam: Present: pedal edema (tense ptting edema, chronic venous stasis changes, flaking skin), warm, radial pulses palpable and symmetrical. Absent: calf tenderness, cyanotic - Neurological Exam Neurological exam: Present: CN II-XII intact, oriented X3, no focal deficits. Absent: pronater drift, facial droop, speech deficit - Skin Skin exam: Present: diaphoretic, intact Internal Med - H&P Results - Labs CBC & Chem 7: 01/23/17 09:46 01/23/17 09:46 Labs: Short CBC 01/23/17 Range/Units 09:46 WBC 12.1 H (4.3-11.1) K/mcL Hgb 9.9 L (11.5-15.4) g/dL Hct 35.3 (35.3-44.9) % Plt Count 302 (140-400) K/mcL Neutrophils # 9.7 H (1.6-8.9) K/mcL BMP 01/23/17 09:46 Sodium 143 Potassium 4.0 Chloride 102 Carbon Dioxide 35 H BUN 16 Creatinine 0.83 Glucose 149 H Calcium 9.1 Cardiac Enzymes 01/23/17 Range/Units 09:46 Troponin I 0.00 (0-0.03) ng/mL - ABG Interpretation ABG results: 01/23/17 10:02 ABG pH 7.34 ABG pCO2 68 H ABG pO2 192 H ABG HCO3 37 H ABG Total CO2 38.8 H ABG O2 Saturation 100 H ABG Base Excess 8.9 H - Impressions ITS Impressions Chest X-Ray 01/23/17 09:19 IMPRESSION: Cardiomegaly with mild interstitial pulmonary edema suggesting mild CHF. D/ / Diomedes Sifuentes MD / Diomedes Sifuentes MD Interpreting Provider: Diomedes Sifuentes MD
[2017-01-23] MEDS: Nicotine 21 MG PATCH.TD24 TD SCH (14:09)
[2017-01-23] MEDS ORDERED: Furosemide 40 MG/4 ML VIAL IVP SCH (17:00)
[2017-01-23] MEDS: Ipratropium/Albuterol Neb 3 ML IH PRN (17:39)
[2017-01-23] MEDS ORDERED: Furosemide 80 MG in 0.9 % Sodium Chloride 50 ML IVPB SCH (18:00)
[2017-01-23] MEDS: Furosemide 40 MG/4 ML VIAL IVP SCH (18:04)
[2017-01-23] MEDS: Budesonide/Formoterol 160/4.5 MDI IH SCH (20:31)
[2017-01-23] MEDS ORDERED: Melatonin 3 MG TABLET PO ONE (23:10)
[2017-01-24] MEDS: Ipratropium/Albuterol Neb 3 ML IH PRN (04:28)
[2017-01-24] MEDS: *HR* Enoxaparin 40 MG/0.4 ML SYRINGE SQ SCH (05:37)
[2017-01-24 07:23] LABS: Lymphocytes % 7.7 %; Red Cell Distribution Width 17.4 % (11.5-14.5)
[2017-01-24 07:25] LABS: Basophils % 0.1 %; Hematocrit 33.4 % (35.3-44.9); Hemoglobin 9.2 g/dL (11.5-15.4); Immature Granulocytes % 0.6 % (0-4); Lymphocytes # 0.9 K/mcL (0.6-4.6); Mean Corpuscular HGB Conc 27.5 g/dL (31.6-35.5); Mean Corpuscular Hemoglobin 25.2 pg (28.0-33.3); Mean Corpuscular Volume 91.5 fL (83.0-100.0); Mean Platelet Volume 9.9 fL (9.4-12.4); Monocytes # 0.4 K/mcL (0.0-1.3); Monocytes % 3.9 %; Platelet Count 302 K/mcL (140-400); Red Blood Count 3.65 M/mcL (3.82-4.97); Segmented Neutrophils % 87.7 %
[2017-01-24 07:37] LABS: BUN/Creatinine Ratio 24 (6-26); Blood Urea Nitrogen 18 mg/dL (7-20); Carbon Dioxide 30 mEq/L (19-29); Chloride 104 mEq/L (98-109); Glucose 151 mg/dL (70-99); Osmolality,Calculated 301 (280-300); Potassium 4.2 mEq/L (3.5-4.5); Sodium 143 mEq/L (136-145); eGFR For African Americans > 60 (> 60); eGFR For Non-African Americans > 60 (> 60)
[2017-01-24 08:05] LABS: Anisocytosis 1+ (Not Present); Hypochromasia Present (Not Present); Platelet Estimate Normal (Normal)
[2017-01-24] MEDS: Ipratropium/Albuterol Neb 3 ML IH SCH ×5 (08:40→23:20)
[2017-01-24] MEDS: Budesonide/Formoterol 160/4.5 MDI IH SCH ×2 (08:40→20:28)
[2017-01-24] MEDS ORDERED: predniSONE 10 MG TABLET PO SCH (09:00)
[2017-01-24] MEDS: Furosemide 40 MG/4 ML VIAL IVP SCH ×2 (09:25→17:08)
[2017-01-24] MEDS: Aspirin 325 MG TABLET PO SCH (09:25)
[2017-01-24] MEDS: Diltiazem CD (24hr) 180 MG CAPSULE PO SCH (09:25)
[2017-01-24] MEDS: Nicotine 21 MG PATCH.TD24 TD SCH (09:25)
[2017-01-24] MEDS ORDERED: Benzonatate 100 MG CAPSULE PO PRN (10:04)
--- NOTE | 2017-01-24 10:08 | Internal Med Progress Note ---
Date of Encounter: 01/24/17 Time of Encounter: 09:40 - Assessment and plan (1) Acute exacerbation of chronic obstructive airways disease Current Visit: Yes Status: Acute Assessment and plan: Patient noted to have medical noncompliance, did not complete the steroid taper which was prescribed at the time of previous discharge. Noted to be wheezing today. Will start IV steroids along with inhalational acetylcysteine and when necessary Tessalon for hacking cough. Continue scheduled bronchodilators along with supplemental oxygen. Noted to be on 5 L/m via nasal cannula at home. Continue nocturnal CPAP. Supportive care. Patient will likely benefit from home health services with visiting nurse, will consult social work professor. (2) Acute and chronic respiratory failure Current Visit: Yes Status: Acute Assessment and plan: ABG revealed PCO2 of 68. Continue supplemental oxygen along with nocturnal CPAP. Noted to be on home oxygen due to underlying COPD and CHF. Qualifiers: Respiratory failure complication: hypoxia and hypercapnia Qualified Code(s) : J96.21 - Acute and chronic respiratory failure with hypoxia; J96.22 - Acute and chronic respiratory failure with hypercapnia (3) CHF (congestive heart failure) Current Visit: Yes Status: Acute Assessment and plan: Likely has volume overload due to acute on chronic diastolic CHF. Continue IV Lasix along with fluid restriction and urine output monitoring. Noted to have appropriate urine output with net negative fluid balance. Continue beta thad. Telemetry monitoring. Qualifiers: Congestive heart failure type: diastolic Congestive heart failure chronicity: acute on chronic Qualified Code(s): I50.33 - Acute on chronic diastolic (congestive) heart failure (4) Atrial fibrillation Current Visit: Yes Status: Chronic Assessment and plan: Was evaluated by cardiology during her previous admission. Continue Cardizem and metoprolol for rate control. Has not been started on anticoagulation at this time due to noncompliance. Telemetry monitoring. Qualifiers: Atrial fibrillation type: chronic Qualified Code(s): I48.2 - Chronic atrial fibrillation (5) Tobacco use disorder Current Visit: Yes Status: Chronic Assessment and plan: Smoking cessation advised. Continue nicotine transdermal patch as needed. (6) TYE (obstructive sleep apnea) Current Visit: Yes Status: Chronic (7) Hypertension Current Visit: Yes Status: Chronic Qualifiers: Hypertension type: essential hypertension Qualified Code(s): I10 - Essential (primary) hypertension - Subjective Interval history: Reports shortness of breath at rest, coughing bouts, copious uncleared mucus in her airways; no fever/chills, chest pain; - Constitutional Vitals: Temp Pulse Resp BP Pulse Ox 97.8 F 76 21 108/68 96 01/24/17 06:39 01/24/17 06:39 01/24/17 06:39 01/24/17 06:39 01/24/17 09:40 General appearance: Present: A&O X 3, morbidly obese, answers questions appropriately - Respiratory Respiratory exam: Present: rhonchi, wheezes (B/L diffuse wheezing and rhonchi). Absent: accessory muscle use, rales - Cardiovascular Cardiovascular exam: Present: irregular rhythm, +S1, +S2. Absent: diastolic murmur, gallop, rubs, systolic murmur - GI/Abdominal GI/Abdominal exam: Present: normal bowel sounds, soft, no peritoneal signs. Absent: distended, tenderness - Extremities Exam Extremities exam: Present: full ROM, pedal edema (2+ pedal edema B/L), warm, radial pulses palpable and symmetrical. Absent: calf tenderness, cyanotic - Neurological Exam Neurological exam: Present: CN II-XII intact, oriented X3, no focal deficits. Absent: pronater drift, facial droop, speech deficit - Skin Skin exam: Present: dry, intact Internal Medicine: Result - Labs CBC & Chem 7: 01/25/17 07:00 01/25/17 07:00 Labs: Short CBC 01/24/17 Range/Units 06:55 WBC 11.4 H (4.3-11.1) K/mcL Hgb 9.2 L (11.5-15.4) g/dL Hct 33.4 L (35.3-44.9) % Plt Count 302 (140-400) K/mcL Neutrophils # 10.0 H (1.6-8.9) K/mcL BMP 01/24/17 06:55 Sodium 143 Potassium 4.2 Chloride 104 Carbon Dioxide 30 H BUN 18 Creatinine 0.76 Glucose 151 H Calcium 9.0 - ABG Interpretation ABG results: ABG ABG pH 7.34 pH Units (7.32-7.45) 01/23/17 10:02 ABG pCO2 68 mmHg (35-45) H 01/23/17 10:02 ABG pO2 192 mmHg (85-104) H 01/23/17 10:02 ABG O2 Saturation 100 % (95-98) H 01/23/17 10:02 Consult Discharge Plan - Plan Referrals: NONE,PCP [Primary Care Provider] -
[2017-01-24] MEDS: Acetylcysteine 10% 2 ML INHSOL IH SCH ×4 (11:39→23:20)
[2017-01-24] MEDS ORDERED: Ipratropium/Albuterol Neb 3 ML IH SCH (12:00)
[2017-01-24] MEDS: MethylPREDNISolone 40 MG/ML VIAL IVP SCH ×2 (17:08→23:43)
--- NOTE | 2017-01-24 18:28 | Electrocardiograph Report ---
[place] [id number] Test Date: 2017-01-23 Pat Name: Shanda Kyle Department: 104 Room: 2A48 Gender: F [employer] Driver: ANA M : 1960 Requested By: Prudencio Kaplan Order Number: [id number] Reading MD: Ally Shafer Measurements Intervals [place] Rate: 95 P: LA: 0 QRS: 32 QRSD: 87 T: -30 QT: 354 QTc: 407 Interpretive Statements ATRIAL FIBRILLATION LOW QRS VOLTAGE IN PRECORDIAL LEADS POSSIBLE ANTERIOR MYOCARDIAL INFARCTION, PROBABLY OLD ABNORMAL RHYTHM ECG Electronically Signed On 01-24-2017 18:27:09 EDT by Ally Shafer
[2017-01-24] MEDS ORDERED: Melatonin 3 MG TABLET PO ONE ×2 (22:00→23:10)
[2017-01-25] MEDS: Ipratropium/Albuterol Neb 3 ML IH SCH ×5 (04:27→20:23)
[2017-01-25] MEDS: *HR* Enoxaparin 40 MG/0.4 ML SYRINGE SQ SCH (05:10)
[2017-01-25] MEDS: Acetylcysteine 10% 2 ML INHSOL IH SCH ×5 (06:16→20:23)
[2017-01-25 07:44] LABS: BUN/Creatinine Ratio 32 (6-26); Blood Urea Nitrogen 25 mg/dL (7-20); Calcium 9.2 mg/dL (8.6-10.8); Carbon Dioxide 31 mEq/L (19-29); Chloride 98 mEq/L (98-109); Glucose 168 mg/dL (70-99); Osmolality,Calculated 300 (280-300); Potassium 4.2 mEq/L (3.5-4.5); Sodium 141 mEq/L (136-145); eGFR For African Americans > 60 (> 60); eGFR For Non-African Americans > 60 (> 60)
[2017-01-25 07:48] LABS: Basophils % 0.1 %
[2017-01-25 07:49] LABS: Hematocrit 32.1 % (35.3-44.9); Hemoglobin 9.3 g/dL (11.5-15.4); Immature Granulocytes % 0.3 % (0-4); Lymphocytes # 0.8 K/mcL (0.6-4.6); Lymphocytes % 5.6 %; Mean Corpuscular Hemoglobin 26.1 pg (28.0-33.3); Mean Corpuscular Volume 89.9 fL (83.0-100.0); Mean Platelet Volume 9.9 fL (9.4-12.4); Monocytes # 0.2 K/mcL (0.0-1.3); Monocytes % 1.3 %; Neutrophils # 13.4 K/mcL (1.6-8.9); Platelet Count 312 K/mcL (140-400); Red Blood Count 3.57 M/mcL (3.82-4.97); Red Cell Distribution Width 17.4 % (11.5-14.5); Segmented Neutrophils % 92.7 %
[2017-01-25] MEDS: MethylPREDNISolone 40 MG/ML VIAL IVP SCH ×3 (08:41→23:57)
[2017-01-25] MEDS: Nicotine 21 MG PATCH.TD24 TD SCH (08:41)
[2017-01-25] MEDS: Diltiazem CD (24hr) 180 MG CAPSULE PO SCH (08:41)
[2017-01-25] MEDS: Aspirin 325 MG TABLET PO SCH (08:41)
[2017-01-25] MEDS: Furosemide 40 MG/4 ML VIAL IVP SCH ×2 (08:41→16:35)
[2017-01-25] MEDS: Budesonide/Formoterol 160/4.5 MDI IH SCH ×2 (08:53→20:23)
[2017-01-25 09:16] LABS: Hypochromasia Present (Not Present); Platelet Estimate Normal (Normal)
--- NOTE | 2017-01-25 10:03 | Internal Med Progress Note ---
Date of Encounter: 01/25/17 Time of Encounter: 10:01 - Assessment and plan (1) Acute exacerbation of chronic obstructive airways disease Current Visit: Yes Status: Acute Assessment and plan: Improving slowly. Continue IV steroids along with inhalational acetylcysteine and when necessary Tessalon for hacking cough. Continue scheduled bronchodilators along with supplemental oxygen. Leukocytosis noted, likely secondary to IV steroids. Preliminary blood cultures remain negative. Noted to be on 5 L/m via nasal cannula at home. Continue nocturnal CPAP. Supportive care. (2) Acute and chronic respiratory failure Current Visit: Yes Status: Acute Assessment and plan: Continue supplemental oxygen along with nocturnal CPAP. Noted to be on home oxygen due to underlying COPD and CHF. Qualifiers: Respiratory failure complication: hypoxia and hypercapnia Qualified Code(s) : J96.21 - Acute and chronic respiratory failure with hypoxia; J96.22 - Acute and chronic respiratory failure with hypercapnia (3) CHF (congestive heart failure) Current Visit: Yes Status: Acute Assessment and plan: Likely has volume overload due to acute on chronic diastolic CHF. Continue IV Lasix along with fluid restriction and urine output monitoring. Noted to have appropriate urine output with net negative fluid balance. Continue beta thad. Telemetry monitoring. Qualifiers: Congestive heart failure type: diastolic Congestive heart failure chronicity: acute on chronic Qualified Code(s): I50.33 - Acute on chronic diastolic (congestive) heart failure (4) Atrial fibrillation Current Visit: Yes Status: Chronic Assessment and plan: Continue Cardizem and metoprolol for rate control. Has not been started on anticoagulation in the past due to noncompliance. Telemetry monitoring. Qualifiers: Atrial fibrillation type: chronic Qualified Code(s): I48.2 - Chronic atrial fibrillation (5) Tobacco use disorder Current Visit: Yes Status: Chronic (6) Diastolic CHF Current Visit: Yes Status: Chronic Qualifiers: Congestive heart failure chronicity: chronic Qualified Code(s): I50.32 - Chronic diastolic (congestive) heart failure (7) TYE (obstructive sleep apnea) Current Visit: Yes Status: Chronic (8) Hypertension Current Visit: Yes Status: Chronic Qualifiers: Hypertension type: essential hypertension Qualified Code(s): I10 - Essential (primary) hypertension (9) Diabetes mellitus Current Visit: Yes Status: Chronic Assessment and plan: Patient reports she has no history of diabetes, likely has steroid-induced hyperglycemia on glucose intolerance. Start Accu-Chek blood glucose monitoring with sliding scale insulin. Diabetic diet. Check hemoglobin A1c. 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 - Subjective Interval history: Reports improvement in shortness of breath and cough; continues to have intermittent cough; insists that she completed her steroid course at home although pharmacist confirmed she has not filled her prescriptions; no fever/ chills; - Constitutional Vitals: Temp Pulse Resp BP Pulse Ox 97.3 F L 84 18 115/75 92 01/25/17 06:39 01/25/17 06:39 01/25/17 08:57 01/25/17 06:39 01/25/17 08:57 General appearance: Present: A&O X 3, morbidly obese, answers questions appropriately - Respiratory Respiratory exam: Present: decreased breath sounds (coarse breath sounds B/L), rhonchi (B/L wheezing and scattered rhonchi- improving). Absent: accessory muscle use, rales, wheezes - Cardiovascular Cardiovascular exam: Present: irregular rhythm, +S1, +S2. Absent: diastolic murmur, gallop, rubs, systolic murmur - GI/Abdominal GI/Abdominal exam: Present: normal bowel sounds, soft, no peritoneal signs. Absent: distended, tenderness - Extremities Exam Extremities exam: Present: pedal edema, warm, radial pulses palpable and symmetrical. Absent: calf tenderness, cyanotic - Neurological Exam Neurological exam: Present: CN II-XII intact, oriented X3, no focal deficits. Absent: pronater drift, facial droop, speech deficit Internal Medicine: Result - Labs CBC & Chem 7: 01/27/17 05:43 01/27/17 05:43 Labs: Short CBC 01/25/17 Range/Units 07:00 WBC 14.5 H (4.3-11.1) K/mcL Hgb 9.3 L (11.5-15.4) g/dL Hct 32.1 L (35.3-44.9) % Plt Count 312 (140-400) K/mcL Neutrophils # 13.4 H (1.6-8.9) K/mcL BMP 01/25/17 07:00 Sodium 141 Potassium 4.2 Chloride 98 Carbon Dioxide 31 H BUN 25 H Creatinine 0.77 Glucose 168 H Calcium 9.2 - ABG Interpretation ABG results: ABG ABG pH 7.34 pH Units (7.32-7.45) 01/23/17 10:02 ABG pCO2 68 mmHg (35-45) H 01/23/17 10:02 ABG pO2 192 mmHg (85-104) H 01/23/17 10:02 ABG O2 Saturation 100 % (95-98) H 01/23/17 10:02 Consult Discharge Plan - Plan Instructions: How to Stop Smoking (GEN), Chronic Obstructive Pulmonary Disease (DC) Referrals: Anu Will MD [Resident] - 01/31/17 2:00 pm Prescriptions: metFORMIN [Glucophage] 500 mg PO BIDWM #60 tablet predniSONE [PredniSONE] 60 mg PO DAILY 18 Days tablet
[2017-01-25] MEDS ORDERED: Dextrose Gel 15 GM PO PRN ×2 (11:57)
[2017-01-25] MEDS ORDERED: D5% in Water 1,000 ML IVC PRN (11:57)
[2017-01-25] MEDS ORDERED: *HR* Dextrose 50 % in Water (Syg) 50 ML SYRINGE IVP PRN (11:57)
[2017-01-25] MEDS: Insulin LISPRO 300 UNITS/3 ML VIAL SQ SCH ×3 (13:05→22:15)
[2017-01-25 13:10] LABS: Hemoglobin A1C 6.9 %
[2017-01-25] MEDS: Acetaminophen 325 MG TABLET PO PRN (22:14)
[2017-01-25] MEDS: Melatonin 3 MG TABLET PO PRN (23:57)
[2017-01-26] MEDS: Ipratropium/Albuterol Neb 3 ML IH SCH ×7 (00:20→23:41)
[2017-01-26] MEDS: Acetylcysteine 10% 2 ML INHSOL IH SCH ×7 (00:20→23:42)
[2017-01-26 04:37] LABS: Basophils % 0.1 %; Eosinophils % 0.1 %; Hemoglobin 9.5 g/dL (11.5-15.4); Immature Granulocytes % 1.6 % (0-4); Lymphocytes # 1.2 K/mcL (0.6-4.6); Lymphocytes % 6.8 %; Mean Corpuscular HGB Conc 29.7 g/dL (31.6-35.5); Mean Corpuscular Hemoglobin 25.9 pg (28.0-33.3); Mean Corpuscular Volume 87.2 fL (83.0-100.0); Monocytes # 0.4 K/mcL (0.0-1.3); Monocytes % 2.2 %; Neutrophils # 15.3 K/mcL (1.6-8.9); Nucleated Red Blood Cells 0.6 /100 WBC (0); Platelet Count 349 K/mcL (140-400); Red Blood Count 3.67 M/mcL (3.82-4.97); Red Cell Distribution Width 17.5 % (11.5-14.5); Segmented Neutrophils % 89.2 %
[2017-01-26 04:57] LABS: BUN/Creatinine Ratio 35 (6-26); Blood Urea Nitrogen 28 mg/dL (7-20); Calcium 9.2 mg/dL (8.6-10.8); Carbon Dioxide 32 mEq/L (19-29); Chloride 99 mEq/L (98-109); Glucose 180 mg/dL (70-99); Osmolality,Calculated 300 (280-300); Sodium 140 mEq/L (136-145); eGFR For African Americans > 60 (> 60); eGFR For Non-African Americans > 60 (> 60)
[2017-01-26 05:02] LABS: Potassium 4.3 mEq/L (3.5-4.5)
[2017-01-26] MEDS: *HR* Enoxaparin 40 MG/0.4 ML SYRINGE SQ SCH (05:39)
[2017-01-26] MEDS: Budesonide/Formoterol 160/4.5 MDI IH SCH ×2 (08:02→19:35)
[2017-01-26] MEDS: Nicotine 21 MG PATCH.TD24 TD SCH (08:49)
[2017-01-26] MEDS: Diltiazem CD (24hr) 180 MG CAPSULE PO SCH (08:49)
[2017-01-26] MEDS: Aspirin 325 MG TABLET PO SCH (08:49)
[2017-01-26] MEDS: Furosemide 40 MG/4 ML VIAL IVP SCH ×2 (08:51→16:10)
[2017-01-26] MEDS: Insulin LISPRO 300 UNITS/3 ML VIAL SQ SCH ×4 (08:53→21:12)
[2017-01-26] MEDS: MethylPREDNISolone 40 MG/ML VIAL IVP SCH ×2 (09:02→21:12)
--- NOTE | 2017-01-26 09:25 | Internal Med Progress Note ---
Date of Encounter: 01/26/17 Time of Encounter: 09:23 - Assessment and plan (1) Acute exacerbation of chronic obstructive airways disease Status: Acute Assessment and plan: Improving slowly. Taper down IV steroids as tolerated. Continue inhalational acetylcysteine and when necessary Tessalon for hacking cough. Continue scheduled bronchodilators along with supplemental oxygen. Leukocytosis worsening, likely secondary to IV steroids. Preliminary blood cultures remain negative. Noted to be on 5 L/m via nasal cannula at home. Continue nocturnal CPAP. Supportive care. Physical and occupation therapy evaluation pending. shift manager on board. (2) Acute and chronic respiratory failure Status: Acute Assessment and plan: Continue supplemental oxygen along with nocturnal CPAP. Noted to be on home oxygen due to underlying COPD and CHF. Qualifiers: Respiratory failure complication: hypoxia and hypercapnia Qualified Code(s) : J96.21 - Acute and chronic respiratory failure with hypoxia; J96.22 - Acute and chronic respiratory failure with hypercapnia (3) CHF (congestive heart failure) Status: Acute Assessment and plan: Likely has volume overload due to acute on chronic diastolic CHF. Improving clinically. Continue IV Lasix along with fluid restriction and urine output monitoring. Noted to have appropriate urine output with net negative fluid balance. Continue beta thad. Telemetry monitoring. Qualifiers: Congestive heart failure type: diastolic Congestive heart failure chronicity: acute on chronic Qualified Code(s): I50.33 - Acute on chronic diastolic (congestive) heart failure (4) Atrial fibrillation Status: Chronic Assessment and plan: Continue Cardizem and metoprolol for rate control. Has not been started on anticoagulation in the past due to noncompliance. Telemetry monitoring. Qualifiers: Atrial fibrillation type: chronic Qualified Code(s): I48.2 - Chronic atrial fibrillation (5) Tobacco use disorder Status: Chronic (6) TYE (obstructive sleep apnea) Status: Chronic (7) Hypertension Status: Chronic Qualifiers: Hypertension type: essential hypertension Qualified Code(s): I10 - Essential (primary) hypertension (8) Diabetes mellitus Status: Chronic Assessment and plan: Patient reports she has no history of diabetes, likely has steroid-induced hyperglycemia on glucose intolerance. Continue Accu-Chek blood glucose monitoring with basal bolus insulin regimen. Diabetic diet. Blood sugars noted to be improving. Hemoglobin A1c noted to be 6.9%. 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 Absent: accessory muscle use, rales, rhonchi, wheezes - Cardiovascular Cardiovascular exam: Present: RRR, +S1, +S2. Absent: diastolic murmur, gallop, rubs, systolic murmur - GI/Abdominal GI/Abdominal exam: Present: normal bowel sounds, soft (obese), no peritoneal signs. Absent: distended, tenderness - Extremities Exam Extremities exam: Present: full ROM, pedal edema, warm, radial pulses palpable and symmetrical. Absent: calf tenderness, cyanotic - Neurological Exam Neurological exam: Present: CN II-XII intact, oriented X3, no focal deficits. Absent: pronater drift, facial droop, speech deficit Internal Medicine: Result - Labs CBC & Chem 7: 01/27/17 05:43 01/27/17 05:43 Labs: Short CBC 01/26/17 Range/Units 04:21 WBC 17.2 H (4.3-11.1) K/mcL Hgb 9.5 L (11.5-15.4) g/dL Hct 32.0 L (35.3-44.9) % Plt Count 349 (140-400) K/mcL Neutrophils # 15.3 H (1.6-8.9) K/mcL BMP 01/26/17 04:21 Sodium 140 Potassium 4.3 Chloride 99 Carbon Dioxide 32 H BUN 28 H Creatinine 0.79 Glucose 180 H Calcium 9.2 - ABG Interpretation ABG results: ABG ABG pH 7.34 pH Units (7.32-7.45) 01/23/17 10:02 ABG pCO2 68 mmHg (35-45) H 01/23/17 10:02 ABG pO2 192 mmHg (85-104) H 01/23/17 10:02 ABG O2 Saturation 100 % (95-98) H 01/23/17 10:02 Consult Discharge Plan - Plan Instructions: How to Stop Smoking (GEN), Chronic Obstructive Pulmonary Disease (DC) Referrals: Anu Will MD [Resident] - 01/31/17 2:00 pm Prescriptions: metFORMIN [Glucophage] 500 mg PO BIDWM #60 tablet predniSONE [PredniSONE] 60 mg PO DAILY 18 Days tablet
[2017-01-26] MEDS: *HR* Metformin 500 MG TABLET PO SCH ×2 (12:19→17:45)
[2017-01-26] MEDS: Acetaminophen 325 MG TABLET PO PRN (21:20)
[2017-01-26] MEDS: Melatonin 3 MG TABLET PO PRN (23:00)
[2017-01-27] MEDS: Ipratropium/Albuterol Neb 3 ML IH SCH ×4 (04:00→15:36)
[2017-01-27] MEDS: Acetylcysteine 10% 2 ML INHSOL IH SCH ×4 (04:00→15:36)
[2017-01-27 05:58] LABS: Basophils % 0.1 %; Hematocrit 31.7 % (35.3-44.9); Hemoglobin 9.2 g/dL (11.5-15.4); Immature Granulocytes % 0.6 % (0-4); Lymphocytes # 0.8 K/mcL (0.6-4.6); Lymphocytes % 5.3 %; Mean Corpuscular Hemoglobin 25.8 pg (28.0-33.3); Mean Corpuscular Volume 88.8 fL (83.0-100.0); Mean Platelet Volume 9.7 fL (9.4-12.4); Monocytes # 0.4 K/mcL (0.0-1.3); Monocytes % 2.6 %; Neutrophils # 14.2 K/mcL (1.6-8.9); Platelet Count 307 K/mcL (140-400); Red Blood Count 3.57 M/mcL (3.82-4.97); Red Cell Distribution Width 17.2 % (11.5-14.5); Segmented Neutrophils % 91.4 %
[2017-01-27 06:19] LABS: BUN/Creatinine Ratio 39 (6-26); Blood Urea Nitrogen 32 mg/dL (7-20); Calcium 9.2 mg/dL (8.6-10.8); Carbon Dioxide 35 mEq/L (19-29); Chloride 98 mEq/L (98-109); Glucose 178 mg/dL (70-99); Osmolality,Calculated 301 (280-300); Potassium 4.3 mEq/L (3.5-4.5); Sodium 140 mEq/L (136-145); eGFR For African Americans > 60 (> 60); eGFR For Non-African Americans > 60 (> 60)
[2017-01-27] MEDS: *HR* Enoxaparin 40 MG/0.4 ML SYRINGE SQ SCH (06:52)
[2017-01-27] MEDS: Budesonide/Formoterol 160/4.5 MDI IH SCH (07:44)
[2017-01-27] MEDS: MethylPREDNISolone 40 MG/ML VIAL IVP SCH (08:09)
[2017-01-27] MEDS: Aspirin 325 MG TABLET PO SCH (08:10)
[2017-01-27] MEDS: Furosemide 40 MG/4 ML VIAL IVP SCH (08:10)
[2017-01-27] MEDS: *HR* Metformin 500 MG TABLET PO SCH (08:10)
[2017-01-27] MEDS: Nicotine 21 MG PATCH.TD24 TD SCH (08:10)
[2017-01-27] MEDS: Diltiazem CD (24hr) 180 MG CAPSULE PO SCH (08:12)
[2017-01-27] MEDS: Insulin LISPRO 300 UNITS/3 ML VIAL SQ SCH ×2 (08:13→11:31)
[2017-01-27 11:16] VITALS: BP 115/64
--- NOTE | 2017-01-27 15:52 | Discharge Summary ---
Date of Encounter: 01/27/17 Time of Encounter: 15:47 - Discharge Diagnosis (1) Acute exacerbation of chronic obstructive airways disease Priority: Primary Status: Acute (2) Acute and chronic respiratory failure Priority: Primary Status: Acute Qualifiers: Respiratory failure complication: hypoxia and hypercapnia Qualified Code(s) : J96.21 - Acute and chronic respiratory failure with hypoxia; J96.22 - Acute and chronic respiratory failure with hypercapnia (3) CHF (congestive heart failure) Priority: Primary Status: Acute Qualifiers: Congestive heart failure type: diastolic Congestive heart failure chronicity: acute on chronic Qualified Code(s): I50.33 - Acute on chronic diastolic (congestive) heart failure (4) Atrial fibrillation Priority: Secondary Status: Chronic Qualifiers: Atrial fibrillation type: chronic Qualified Code(s): I48.2 - Chronic atrial fibrillation (5) Tobacco use disorder Priority: Secondary Status: Chronic (6) TYE (obstructive sleep apnea) Priority: Secondary Status: Chronic (7) Hypertension Priority: Secondary Status: Chronic Qualifiers: Hypertension type: essential hypertension Qualified Code(s): I10 - Essential (primary) hypertension - Discharge Medications Prescriptions: metFORMIN [Glucophage] 500 mg PO BIDWM #60 tablet predniSONE [PredniSONE] 60 mg PO DAILY 18 Days tablet Home Medications: Aclidinium [place] [Tudorza Pressair] 1 puff IH BID 09/08/15 [History] Albuterol Sulfate [Proair Hfa] 2 puff IH Q4H PRN 09/08/15 [History] Budesonide/Formoterol 160/4.5 [Symbicort 160/4.5] 2 puff IH BIDR 09/08/15 [ History] Simvastatin [Zocor] 40 mg PO HS 09/08/15 [History] Aspirin 325 mg PO DAILY #60 tablet 09/19/15 [Rx] Diltiazem CD (24hr) [Cardizem CD] 360 mg PO DAILY #30 cap.er.24h 09/19/15 [Rx] Metoprolol [Lopressor] 50 mg PO BID #60 tablet 09/19/15 [Rx] Albuterol Neb [Proventil Neb] 2.5 mg IH Q4HR 07/05/16 [History] Oxygen 4 l .ROUTE AD 12/05/16 [History] Ipratropium/Albuterol Neb [Duoneb] 3 ml IH [id number] PRN inh 12/08/16 [Rx] Furosemide [Lasix] 60 mg PO BIDDIURETIC #60 tablet 01/27/17 [Rx] metFORMIN [Glucophage] 500 mg PO BIDWM #60 tablet 01/27/17 [Rx] predniSONE [PredniSONE] 60 mg PO DAILY 18 Days tablet 01/27/17 [Rx] Allergies/Adverse Reactions: 3 Allergy/AdvReac Type Severity Reaction Status Date / Time Penicillins Allergy Rash Verified 09/03/16 22:33 Date of admission: 01/23/17 17:05 Primary care physician: PCP NONE Consults: 01/25/17 11:58 Consult to Science Specialist [CONS] Routine Reason for SW Consult: May need HHS; noncompliant, recurrent admissions 01/26/17 07:31 OT [Consult to Occupational Therapy] [CONS] Routine Comment: Evaluate, develop and implement POC Reason for Consult: Increased Weakness PT [Consult to Physical Therapy] [CONS] Routine Comment: Evaluate, develop and implement POC Reason for Consult: Increased Weakness Discharging clinician: Betty Gonzalez Anticipated date of discharge: 01/27/17 - Patient Status Disposition: Home Health Service Condition: Fair Functional capacity at discharge: uses cane/walker Overall status at discharge: patient is progressing back to baseline - Discharge Instructions Instructions: How to Stop Smoking (GEN), Chronic Obstructive Pulmonary Disease (DC) Follow Up With: Anu Will MD [Resident] - 01/31/17 2:00 pm - Diet and Activity Activity: as per physical therapy, wear oxygen at all times, other (wear CPAP at night) Diet: diabetic diet, low fat, low cholesterol, low salt diet Hospital course: Ms. Kyle is a 56 year old female with the above medical problems, admitted with dyspnea, orthopnea and cough. Patient was noted to be in acute exacerbation of COPD and CHF. Patient was recently discharged from the hospital after being treated for acute COPD on oral antibiotics and steroids, however it is unclear if she filled her prescriptions. No evidence of pneumonia during this admission. She was started on IV diuresis with Lasix along with fluid restriction and urine output monitoring, noted to have appropriate urine output with net negative fluid balance and improvement in her symptoms. Telemetry monitoring remained uneventful. She was also noted to have diffuse wheezing and rhonchi and was started on IV steroids along with bronchodilators, supplemental oxygen and when necessary antitussives and Mucomyst. Patient responded well to this regimen and is currently saturating well on 4 L/m nasal cannula, which is her baseline oxygen requirement at home. She also uses CPAP at nighttime. Medication compliance is reinforced. Smoking cessation was advised. Patient will consider quitting. Patient is noted to have steroid-induced hyperglycemia and hemoglobin A1c was noted to be 6.9%, and she is being discharged on Metformin. Patient is also noted to have multiple missed appointments in the past with her primary care provider and is encouraged to keep her upcoming appointment with the residency clinic. Physical and occupational therapy evaluation was done and recommended home health services, which can only be restarted after her primary care visit. She is otherwise medically stable for discharge. Time spent discussing smoking cessation with patient: 3 to 10 minutes - Time Spent with Patient Total time spent providing and/or coordinating discharge services: Greater than 30 minutes (45 min) - Constitutional Vitals: Temp Pulse Resp BP Pulse Ox 98.4 F 80 19 115/64 95 01/27/17 11:07 01/27/17 11:07 01/27/17 11:07 01/27/17 11:07 01/27/17 11:07 General appearance: Present: A&O X 3, morbidly obese, answers questions appropriately - Respiratory Respiratory exam: Present: CTAB. Absent: accessory muscle use, rales, rhonchi, wheezes
--- NOTE | 2017-01-27 15:54 | Physician Discharge Referral ---
Home Health/Hosp Referral Info Transfer to: Home Health Attending Provider: Betty Gonzalez Provider in Charge Post Discharge: PCP - Diagnosis (1) Acute exacerbation of chronic obstructive airways disease Priority: Primary Status: Acute (2) Acute and chronic respiratory failure Priority: Primary Status: Acute (3) CHF (congestive heart failure) Priority: Primary Status: Acute (4) Atrial fibrillation Priority: Secondary Status: Chronic (5) Tobacco use disorder Priority: Secondary Status: Chronic (6) TYE (obstructive sleep apnea) Priority: Secondary Status: Chronic (7) Hypertension Priority: Secondary Status: Chronic - Respiratory Orders Oxygen / L per min (4-5L/min via [place]) Smoking Cessation: Smoking cessation has been advised. For more information, call the [employer] Tobacco Quit Line at 3-194-MXIH-NOW. - Diet/Nutrition Diet/Nutrition Orders: No Added Salt (SELIN), Cardiac, No Concentrated Sweets ( diabetic) - Activity Activity Orders: Ambulate, Walker - Services Needed Following services are medically necessary services: Nursing, Physical Therapy, Occupational Therapy - Transfer Medications Prescriptions: metFORMIN [Glucophage] 500 mg PO BIDWM #60 tablet predniSONE [PredniSONE] 60 mg PO DAILY 18 Days tablet Home Medications: Aclidinium [place] [Tudorza Pressair] 1 puff IH BID 09/08/15 [History] Albuterol Sulfate [Proair Hfa] 2 puff IH Q4H PRN 09/08/15 [History] Budesonide/Formoterol 160/4.5 [Symbicort 160/4.5] 2 puff IH BIDR 09/08/15 [ History] Simvastatin [Zocor] 40 mg PO HS 09/08/15 [History] Aspirin 325 mg PO DAILY #60 tablet 09/19/15 [Rx] Diltiazem CD (24hr) [Cardizem CD] 360 mg PO DAILY #30 cap.er.24h 09/19/15 [Rx] Metoprolol [Lopressor] 50 mg PO BID #60 tablet 09/19/15 [Rx] Albuterol Neb [Proventil Neb] 2.5 mg IH Q4HR 07/05/16 [History] Oxygen 4 l .ROUTE AD 12/05/16 [History] Ipratropium/Albuterol Neb [Duoneb] 3 ml IH [id number] PRN inh 12/08/16 [Rx] Furosemide [Lasix] 60 mg PO BIDDIURETIC #60 tablet 01/27/17 [Rx] metFORMIN [Glucophage] 500 mg PO BIDWM #60 tablet 01/27/17 [Rx] predniSONE [PredniSONE] 60 mg PO DAILY 18 Days tablet 01/27/17 [Rx] Allergies/Adverse Reactions: 3 Allergy/AdvReac Type Severity Reaction Status Date / Time Penicillins Allergy Rash Verified 09/03/16 22:33 Certification: Further, I certify that my clinical findings support that this patient is homebound (i.e. absences from home require considerable and taxing effort and are for medical reasons or holiness services or infrequently or short duration when for other reasons) because: Homebound Reason: Patient requires assistance of a person or device to safely leave home, Leaving home requires considerable and taxing effort due to condition, Severity of cardiac or pulmonary status limits activity tolerance Attestation: My signature below is to certify that this patient is under my care and that I, or nurse practitioner, or a physician's child and youth program assistant working with me, has a face-to -face encounter with this patient.
[2017-01-27] MEDS ORDERED: FLUARIX QUAD 2017-18 36MOS UP/PF 0.5 ML SYRINGE IM ONE (16:17)
== END 2017-01-27 16:43 | disposition home health service (06) | DRG 194 ==
LOC: EMEROO 09:18 → 2ANU 09:18 → SUATTDRO 17:05
PROVIDERS: ADMIT Internal Medicine; ATTEND Internal Medicine

== ENCOUNTER 2017-02-17 15:41 | Inpatient (IN) ==
--- NOTE | 2017-02-17 15:45 | Emergency Department Note ---
Disposition Clinical Impression: Acute exacerbation of chronic obstructive airways disease, CHF (congestive heart failure) Disposition: Admitted As Inpatient Condition: Fair General Adult HPI - General Chief complaint: ED Shortness of Breath/Dyspnea Stated complaint: resp distress Time Seen by Provider: 02/17/17 15:42 - Related Data Home Medications Medication Instructions Recorded Confirmed Aclidinium [place] [Tudorza 1 puff IH BID 09/08/15 02/17/17 Pressair] Albuterol Sulfate [Proair Hfa] 2 puff IH Q4H PRN 09/08/15 02/17/17 Budesonide/Formoterol 160/4.5 2 puff IH BIDR 09/08/15 02/17/17 [Symbicort 160/4.5] Simvastatin [Zocor] 40 mg PO HS 09/08/15 02/17/17 Albuterol Neb [Proventil Neb] 2.5 mg IH Q4HR 07/05/16 02/17/17 Oxygen 4 l .ROUTE AD 12/05/16 02/17/17 Furosemide [Lasix] 40 mg PO BID 02/17/17 02/17/17 Previous Rx's Medication Instructions Recorded Aspirin 325 mg PO DAILY #60 tablet 09/19/15 Diltiazem CD (24hr) [Cardizem CD] 360 mg PO DAILY #30 cap.er.24h 09/19/15 Metoprolol [Lopressor] 50 mg PO BID #60 tablet 09/19/15 Ipratropium/Albuterol Neb [Duoneb] 3 ml IH [id number] PRN inh 12/08/16 metFORMIN [Glucophage] 500 mg PO BIDWM #60 tablet 01/27/17 Allergies Allergy/AdvReac Type Severity Reaction Status Date / Time Penicillins Allergy Rash Verified 09/03/16 22:33 Past Medical History - Past Medical History Medical history: Reports: arthritis, asthma, atrial fibrillation, CHF, COPD, diabetes, GERD, hyperlipidemia, hypertension, osteoporosis, valvular heart disease, other Surgical history: Reports: non-contributory, other Psychiatric history: Reports: no psych history, other - Social History Smoking Status: Current every day smoker Smokeless Tobacco Status: No Alcohol use: Reports: rarely Drug use: Reports: none Course Vital Signs Temperature 98.2 F 02/17/17 15:43 Pulse Rate 87 02/17/17 15:43 Respiratory Rate 32 02/17/17 15:43 Blood Pressure 114/86 02/17/17 15:43 O2 Sat by Pulse Oximetry 89 02/17/17 15:43 Temperature 96.7 F L 02/18/17 07:51 Pulse Rate 75 02/18/17 07:51 Respiratory Rate 18 02/18/17 08:25 Blood Pressure 111/79 02/18/17 07:51 O2 Sat by Pulse Oximetry 97 02/18/17 08:25 Oxygen Delivery Oxygen Delivery Bipap Medical Decision Making - Lab Data Result diagrams: 02/18/17 05:49 02/18/17 05:49 Lab Results 02/17/17 02/17/17 02/17/17 Range/Units 16:07 16:07 16:07 WBC 12.0 H (4.3-11.1) K/mcL RBC 3.79 L (3.82-4.97) M/mcL Hgb 10.0 L (11.5-15.4) g/dL Hct 34.6 L (35.3-44.9) % MCV 91.3 (83.0-100.0) fL MCH 26.4 L (28.0-33.3) pg MCHC 28.9 L (31.6-35.5) g/dL RDW 21.6 H (11.5-14.5) % Plt Count 268 (140-400) K/mcL MPV 9.7 (9.4-12.4) fL Immature Gran % 0.5 (0-4) % Seg Neutrophils % 77.2 % Lymphocytes % 16.1 % Monocytes % 5.0 % Eosinophils % 0.9 % Basophils % 0.3 % Neutrophils # 9.3 H (1.6-8.9) K/mcL Lymphocytes # 1.9 (0.6-4.6) K/mcL Monocytes # 0.6 (0.0-1.3) K/mcL Eosinophils # 0.1 (0.0-0.6) K/mcL Basophils # 0.0 (0.0-0.2) K/mcL Nucleated RBCs/100 WBC 0.3 H (0) /100 WBC Platelet Estimate Normal (Normal) Hypochromasia Present A (Not Present) Anisocytosis 2+ A (Not Present) PT 14.8 H (9.4-12.1) Seconds INR 1.4 APTT 24.9 L (26.0-36.0) Seconds ABG pH (7.32-7.45) pH Units ABG pCO2 (35-45) mmHg ABG pO2 (85-104) mmHg ABG HCO3 (21-27) mEq/L ABG Total CO2 (20-26) mEq/L ABG O2 Saturation (95-98) % ABG Base Excess (-2 to 3) mEq/L Sodium 144 (136-145) mEq/L Potassium 3.4 L (3.5-4.5) mEq/L Chloride 99 (98-109) mEq/L Carbon Dioxide 35 H (19-29) mEq/L BUN 15 (7-20) mg/dL Creatinine 0.79 (0.57-1.11) mg/dL Est GFR ( Amer) > 60 (> 60) Est GFR (Non-Af Amer) > 60 (> 60) BUN/Creatinine Ratio 19 (6-26) Glucose 169 H (70-99) mg/dL Calculated Osmolality 303 H (280-300) Lactic Acid (0.5-2.2) mmol/L Calcium 9.3 (8.6-10.8) mg/dL Total Bilirubin 0.6 (0.2-1.2) mg/dL Direct Bilirubin 0.3 (0.0-0.5) mg/dL Indirect Bilirubin 0.3 (0.0-1.2) mg/dL AST 11 (5-34) Units/L ALT 8 (0-55) Units/L Alkaline Phosphatase 107 (38-126) Units/L Troponin I (0-0.03) ng/mL B-Natriuretic Peptide (0-100) pg/mL Serum Total Protein 7.2 (6.0-8.3) g/dL Albumin 2.9 L (3.5-5.0) g/dL Globulin 4.3 H (2.4-3.5) g/dL Albumin/Globulin Ratio 0.7 L (1.1-2.2) Urine Color (Yellow) Urine Clarity (Clear) Urine pH (5.0-8.0) pH Units Ur Specific [place] (1.010-1.025) Urine Protein (Neg-Trace) mg/dL Urine Glucose (UA) (Normal) mg/dL Urine Ketones (Negative) mg/dL Urine Blood (Negative) Urine Nitrite (Negative) Urine Bilirubin (Negative) Urine Urobilinogen (Normal) mg/dL Ur Leukocyte Esterase (Negative) Ur Culture Indicated? (NO) 02/17/17 02/17/17 02/17/17 Range/Units 16:07 16:07 16:07 WBC (4.3-11.1) K/mcL RBC (3.82-4.97) M/mcL Hgb (11.5-15.4) g/dL Hct (35.3-44.9) % MCV (83.0-100.0) fL MCH (28.0-33.3) pg MCHC (31.6-35.5) g/dL RDW (11.5-14.5) % Plt Count (140-400) K/mcL MPV (9.4-12.4) fL Immature Gran % (0-4) % Seg Neutrophils % % Lymphocytes % % Monocytes % % Eosinophils % % Basophils % % Neutrophils # (1.6-8.9) K/mcL Lymphocytes # (0.6-4.6) K/mcL Monocytes # (0.0-1.3) K/mcL Eosinophils # (0.0-0.6) K/mcL Basophils # (0.0-0.2) K/mcL Nucleated RBCs/100 WBC (0) /100 WBC Platelet Estimate (Normal) Hypochromasia (Not Present) Anisocytosis (Not Present) PT (9.4-12.1) Seconds INR APTT (26.0-36.0) Seconds ABG pH (7.32-7.45) pH Units ABG pCO2 (35-45) mmHg ABG pO2 (85-104) mmHg ABG HCO3 (21-27) mEq/L ABG Total CO2 (20-26) mEq/L ABG O2 Saturation (95-98) % ABG Base Excess (-2 to 3) mEq/L Sodium (136-145) mEq/L Potassium (3.5-4.5) mEq/L Chloride (98-109) mEq/L Carbon Dioxide (19-29) mEq/L BUN (7-20) mg/dL Creatinine (0.57-1.11) mg/dL Est GFR ( Amer) (> 60) Est GFR (Non-Af Amer) (> 60) BUN/Creatinine Ratio (6-26) Glucose (70-99) mg/dL Calculated Osmolality (280-300) Lactic Acid 2.4 H (0.5-2.2) mmol/L Calcium (8.6-10.8) mg/dL Total Bilirubin (0.2-1.2) mg/dL Direct Bilirubin (0.0-0.5) mg/dL Indirect Bilirubin (0.0-1.2) mg/dL AST (5-34) Units/L ALT (0-55) Units/L Alkaline Phosphatase (38-126) Units/L Troponin I 0.00 (0-0.03) ng/mL B-Natriuretic Peptide 346 H (0-100) pg/mL Serum Total Protein (6.0-8.3) g/dL Albumin (3.5-5.0) g/dL Globulin (2.4-3.5) g/dL Albumin/Globulin Ratio (1.1-2.2) Urine Color (Yellow) Urine Clarity (Clear) Urine pH (5.0-8.0) pH Units Ur Specific [place] (1.010-1.025) Urine Protein (Neg-Trace) mg/dL Urine Glucose (UA) (Normal) mg/dL Urine Ketones (Negative) mg/dL Urine Blood (Negative) Urine Nitrite (Negative) Urine Bilirubin (Negative) Urine Urobilinogen (Normal) mg/dL Ur Leukocyte Esterase (Negative) Ur Culture Indicated? (NO) 02/17/17 02/17/17 02/17/17 Range/Units 16:14 17:45 19:32 WBC (4.3-11.1) K/mcL RBC (3.82-4.97) M/mcL Hgb (11.5-15.4) g/dL Hct (35.3-44.9) % MCV (83.0-100.0) fL MCH (28.0-33.3) pg MCHC (31.6-35.5) g/dL RDW (11.5-14.5) % Plt Count (140-400) K/mcL MPV (9.4-12.4) fL Immature Gran % (0-4) % Seg Neutrophils % % Lymphocytes % % Monocytes % % Eosinophils % % Basophils % % Neutrophils # (1.6-8.9) K/mcL Lymphocytes # (0.6-4.6) K/mcL Monocytes # (0.0-1.3) K/mcL Eosinophils # (0.0-0.6) K/mcL Basophils # (0.0-0.2) K/mcL Nucleated RBCs/100 WBC (0) /100 WBC Platelet Estimate (Normal) Hypochromasia (Not Present) Anisocytosis (Not Present) PT (9.4-12.1) Seconds INR APTT (26.0-36.0) Seconds ABG pH 7.39 (7.32-7.45) pH Units ABG pCO2 59 H (35-45) mmHg ABG pO2 131 H (85-104) mmHg ABG HCO3 36 H (21-27) mEq/L ABG Total CO2 38 H (20-26) mEq/L ABG O2 Saturation 99 H (95-98) % ABG Base Excess 9 H (-2 to 3) mEq/L Sodium (136-145) mEq/L Potassium (3.5-4.5) mEq/L Chloride (98-109) mEq/L Carbon Dioxide (19-29) mEq/L BUN (7-20) mg/dL Creatinine (0.57-1.11) mg/dL Est GFR ( Amer) (> 60) Est GFR (Non-Af Amer) (> 60) BUN/Creatinine Ratio (6-26) Glucose (70-99) mg/dL Calculated Osmolality (280-300) Lactic Acid 1.0 (0.5-2.2) mmol/L Calcium (8.6-10.8) mg/dL Total Bilirubin (0.2-1.2) mg/dL Direct Bilirubin (0.0-0.5) mg/dL Indirect Bilirubin (0.0-1.2) mg/dL AST (5-34) Units/L ALT (0-55) Units/L Alkaline Phosphatase (38-126) Units/L Troponin I (0-0.03) ng/mL B-Natriuretic Peptide (0-100) pg/mL Serum Total Protein (6.0-8.3) g/dL Albumin (3.5-5.0) g/dL Globulin (2.4-3.5) g/dL Albumin/Globulin Ratio (1.1-2.2) Urine Color Yellow (Yellow) Urine Clarity Clear (Clear) Urine pH 7.0 (5.0-8.0) pH Units Ur Specific [place] 1.016 (1.010-1.025) Urine Protein Negative (Neg-Trace) mg/dL Urine Glucose (UA) Normal (Normal) mg/dL Urine Ketones Negative (Negative) mg/dL Urine Blood Negative (Negative) Urine Nitrite Negative (Negative) Urine Bilirubin Negative (Negative) Urine Urobilinogen Normal (Normal) mg/dL Ur Leukocyte Esterase Negative (Negative) Ur Culture Indicated? NO (NO) Critical Care Time Critical Care Time: Yes Total Critical Care Time: 30 Attestation: Patient presented with dyspnea requiring BiPAP therapy. ABG interpretation. Admission Attestation Statement - Attestation Attestation: I examined this patient and my medical decision-making was reviewed with the Resident Physician. I agree with the documented findings, disposition and treatment plan as described except to the extent set forth below. Face to face time provided in conjunction with the resident physician Dr. Ramesh Patient arrives to the treatment area in a wheelchair. She has a history of COPD which is oxygen dependent as well as CHf. She was sent from the residency clinic due to a pulse ox of 78%. Patient is obese but no acute respirator distress on exam.
[2017-02-17] MEDS ORDERED: methylPREDNISolone 125 MG/2 ML VIAL IVP ONE (15:46)
[2017-02-17] MEDS ORDERED: Ipratropium/Albuterol Neb 3 ML IH ONE (15:46)
[2017-02-17] MEDS ORDERED: Furosemide 40 MG/4 ML VIAL IVP ONE (15:46)
[2017-02-17] MEDS ORDERED: Ipratropium/Albuterol Neb 3 ML ONE (15:47)
--- NOTE | 2017-02-17 15:54 | Emergency Department Note ---
Disposition Clinical Impression: Acute exacerbation of chronic obstructive airways disease CHF (congestive heart failure) Qualifiers: Congestive heart failure type: unspecified congestive heart failure type Congestive heart failure chronicity: acute on chronic Qualified Code(s): I50.9 - Heart failure, unspecified Disposition: Admitted As Inpatient Condition: Fair Forms: ED Satisfaction Letter Time of Disposition: 17:02 SOB HPI - General Chief Complaint: ED Shortness of Breath/Dyspnea Stated Complaint: resp distress Time Seen by Provider: 02/17/17 15:42 Nursing Notes Reviewed: Yes Vital Signs Reviewed: Yes - History of Present Illness 56-year-old female past medical history of COPD, CHF, diabetes, morbid obesity presents to the emergency department with what she feels like is a COPD exacerbation. She was sent from the residency clinic with a pulse ox of 78% on 4 L of oxygen via nasal cannula. Patient feels like she may have the flu as she is complaining of myalgias and cough. She also states that she has noticed and some increased swelling in the lower extremity as bilaterally. Patient's complaining of chest tightness and extreme shortness of breath. - Related Data Home Medications Medication Instructions Recorded Confirmed Aclidinium [place] [Tudorza 1 puff IH BID 09/08/15 01/23/17 Pressair] Albuterol Sulfate [Proair Hfa] 2 puff IH Q4H PRN 09/08/15 01/23/17 Budesonide/Formoterol 160/4.5 2 puff IH BIDR 09/08/15 01/23/17 [Symbicort 160/4.5] Simvastatin [Zocor] 40 mg PO HS 09/08/15 01/23/17 Albuterol Neb [Proventil Neb] 2.5 mg IH Q4HR 07/05/16 01/23/17 Oxygen 4 l .ROUTE AD 12/05/16 01/23/17 Furosemide [Lasix] 40 mg PO BID 02/17/17 02/17/17 Previous Rx's Medication Instructions Recorded Aspirin 325 mg PO DAILY #60 tablet 09/19/15 Diltiazem CD (24hr) [Cardizem CD] 360 mg PO DAILY #30 cap.er.24h 09/19/15 Metoprolol [Lopressor] 50 mg PO BID #60 tablet 09/19/15 Ipratropium/Albuterol Neb [Duoneb] 3 ml IH [id number] PRN inh 12/08/16 metFORMIN [Glucophage] 500 mg PO BIDWM #60 tablet 01/27/17 Allergies Allergy/AdvReac Type Severity Reaction Status Date / Time Penicillins Allergy Rash Verified 09/03/16 22:33 All systems ED: reviewed and negative except as stated. Review of Systems: As Per HPI Constitutional: Reports: chills, weakness Eyes: Denies: eye pain ENT ED: Denies: ear pain, congestion Cardiovascular: Reports: chest pain, palpitations, dyspnea on exertion Respiratory: Reports: cough, dyspnea, wheezes Gastrointestinal: Reports: nausea. Denies: vomiting Genitourinary: Denies: urgency, dysuria, frequency Musculoskeletal: Reports: myalgia. Denies: back pain Integumentary: Denies: rash Neurological: Reports: weakness. Denies: headache Endocrine: Reports: fatigue Past Medical History - Past Medical History Medical history: Reports: arthritis, asthma, atrial fibrillation, CHF, COPD, diabetes, GERD, hyperlipidemia, hypertension, osteoporosis, valvular heart disease, other Surgical history: Reports: non-contributory, other Psychiatric history: Reports: no psych history, other - Social History Smoking Status: Current every day smoker Smokeless Tobacco Status: No Alcohol use: Reports: rarely Drug use: Reports: none Physical Exam - General Limitations: other (Morbidly obese female in respiratory distress) General appearance: other (In respiratory distress) - Head Head exam: normocephalic - Eye Eye exam: Absent: scleral icterus, conjunctival injection - ENT ENT exam: mucous membranes moist, other (Poor dentition) - Neck Neck exam: Present: trachea midline. Absent: tenderness, meningismus - Chest Chest inspection: Present: symmetric chest wall rise - Respiratory Respiratory exam: Present: wheezes, accessory muscle use, prolonged expiratory phase - Cardiovascular Cardiovascular exam: Present: regular rate, irregular rhythm - Abdominal Exam Abdominal exam: Present: soft, Non-Tender - Extremities Exam Extremities exam: Present: normal capillary refill, pedal edema (3+ pitting) - Neurological Exam Neurological exam: Present: alert, oriented X3 - Skin Skin exam: Present: warm, dry, intact Course Course Narrative: 56-year-old female presented to the emergency department with shortness of breath and concern for what she thinks is a COPD exacerbation versus exacerbation of her congestive heart failure. As time obtained at electrocardiogram, chest x-ray, but respiratory down to administer 3 duo nebs, administered 125 Solu-Medrol as her physical exam HAD wheezes throughout. We will begin BiPAP as this patient is tACHYPNIC AND hypoxic. We are also obtaining CBC, CMP, troponin, BNP. Patient will require admission to the hospital. We will monitor her respiratory status in the emergency department. - Reevaluation(s) Reevaluation #1: Clinically, patient states that BiPAP HAS helped her with her symptoms and she is now breathing better. Patient does have an elevated BNP of 346. She has had at this level on previous admissions. Her arterial blood gas shows fully compensated respiratory acidosis that is chronic. At this time, I do not believe this patient requires intubation as early intervention by providing BiPAP has really assisted the patient. Patient does have a mild leukocytosis, but chest x-ray does not reveal a consolidation in its concerning for pneumonia at this point. Patient also does have a elevated lactic acid of 2.4, however, this is mildly elevated in this patient appears more wet and dry and she has bilateral pitting edema in the lower extremities. Given this patient 40 mg of Lasix as I believe she has both a mixed component of a CHF exacerbation and COPD exacerbation. Patient was provided 125 mg Solu-Medrol. Chest X-Ray 02/17/17 15:46 IMPRESSION: No acute cardiopulmonary process. D/ / Adele Powell MD / Adele Powell MD Interpreting Provider: Adele Powell MD Vital Signs Temperature 98.2 F 02/17/17 15:43 Pulse Rate 87 02/17/17 15:43 Respiratory Rate 32 02/17/17 15:43 Blood Pressure 114/86 02/17/17 15:43 O2 Sat by Pulse Oximetry 89 02/17/17 15:43 Temperature 98.2 F 02/17/17 15:43 Pulse Rate 87 02/17/17 15:43 Respiratory Rate 30 02/17/17 16:23 Blood Pressure 114/86 02/17/17 15:43 O2 Sat by Pulse Oximetry 96 02/17/17 16:23 Oxygen Delivery Oxygen Delivery Nasal Cannula Time: 16:45 Reevaluation #2: Patient continues to feel like she is improving while on the BiPAP. I will leave her on as we admit her to the floor. Spoke with the hospitalist and they agreed to accept the admission of this patient. I discussed this with the patient and she agreed as well. Patient is currently hemodynamically stable at this time. Her pulse ox is 96% on FiO2 of 30% on BiPAP. Time: 17:02 Vital Signs Temperature 98.2 F 02/17/17 15:43 Pulse Rate 87 02/17/17 15:43 Respiratory Rate 32 02/17/17 15:43 Blood Pressure 114/86 02/17/17 15:43 O2 Sat by Pulse Oximetry 89 02/17/17 15:43 Temperature 98.2 F 02/17/17 15:43 Pulse Rate 87 02/17/17 15:43 Respiratory Rate 30 02/17/17 16:23 Blood Pressure 114/86 02/17/17 15:43 O2 Sat by Pulse Oximetry 96 02/17/17 16:23 Oxygen Delivery Oxygen Delivery Nasal Cannula Shortness of Breath/Dyspnea - Medical Records Medical records reviewed: Yes I reviewed the patient's medical records. - Lab Data Lab results reviewed: Yes I reviewed the patient's lab results. Result diagrams: 02/17/17 16:07 02/17/17 16:07 Lab Results 02/17/17 02/17/17 02/17/17 Range/Units 16:07 16:07 16:07 WBC 12.0 H (4.3-11.1) K/mcL RBC 3.79 L (3.82-4.97) M/mcL Hgb 10.0 L (11.5-15.4) g/dL Hct 34.6 L (35.3-44.9) % MCV 91.3 (83.0-100.0) fL MCH 26.4 L (28.0-33.3) pg MCHC 28.9 L (31.6-35.5) g/dL RDW 21.6 H (11.5-14.5) % Plt Count 268 (140-400) K/mcL MPV 9.7 (9.4-12.4) fL Nucleated RBCs/100 WBC 0.3 H (0) /100 WBC PT 14.8 H (9.4-12.1) Seconds INR 1.4 APTT 24.9 L (26.0-36.0) Seconds ABG pH (7.32-7.45) pH Units ABG pCO2 (35-45) mmHg ABG pO2 (85-104) mmHg ABG HCO3 (21-27) mEq/L ABG Total CO2 (20-26) mEq/L ABG O2 Saturation (95-98) % ABG Base Excess (-2 to 3) mEq/L Sodium 144 (136-145) mEq/L Potassium 3.4 L (3.5-4.5) mEq/L Chloride 99 (98-109) mEq/L Carbon Dioxide 35 H (19-29) mEq/L BUN 15 (7-20) mg/dL Creatinine 0.79 (0.57-1.11) mg/dL Est GFR ( Amer) > 60 (> 60) Est GFR (Non-Af Amer) > 60 (> 60) BUN/Creatinine Ratio 19 (6-26) Glucose 169 H (70-99) mg/dL Calculated Osmolality 303 H (280-300) Lactic Acid (0.5-2.2) mmol/L Calcium 9.3 (8.6-10.8) mg/dL Total Bilirubin 0.6 (0.2-1.2) mg/dL Direct Bilirubin 0.3 (0.0-0.5) mg/dL Indirect Bilirubin 0.3 (0.0-1.2) mg/dL AST 11 (5-34) Units/L ALT 8 (0-55) Units/L Alkaline Phosphatase 107 (38-126) Units/L Troponin I (0-0.03) ng/mL B-Natriuretic Peptide (0-100) pg/mL Serum Total Protein 7.2 (6.0-8.3) g/dL Albumin 2.9 L (3.5-5.0) g/dL Globulin 4.3 H (2.4-3.5) g/dL Albumin/Globulin Ratio 0.7 L (1.1-2.2) 02/17/17 02/17/17 02/17/17 Range/Units 16:07 16:07 16:07 WBC (4.3-11.1) K/mcL RBC (3.82-4.97) M/mcL Hgb (11.5-15.4) g/dL Hct (35.3-44.9) % MCV (83.0-100.0) fL MCH (28.0-33.3) pg MCHC (31.6-35.5) g/dL RDW (11.5-14.5) % Plt Count (140-400) K/mcL MPV (9.4-12.4) fL Nucleated RBCs/100 WBC (0) /100 WBC PT (9.4-12.1) Seconds INR APTT (26.0-36.0) Seconds ABG pH (7.32-7.45) pH Units ABG pCO2 (35-45) mmHg ABG pO2 (85-104) mmHg ABG HCO3 (21-27) mEq/L ABG Total CO2 (20-26) mEq/L ABG O2 Saturation (95-98) % ABG Base Excess (-2 to 3) mEq/L Sodium (136-145) mEq/L Potassium (3.5-4.5) mEq/L Chloride (98-109) mEq/L Carbon Dioxide (19-29) mEq/L BUN (7-20) mg/dL Creatinine (0.57-1.11) mg/dL Est GFR ( Amer) (> 60) Est GFR (Non-Af Amer) (> 60) BUN/Creatinine Ratio (6-26) Glucose (70-99) mg/dL Calculated Osmolality (280-300) Lactic Acid 2.4 H (0.5-2.2) mmol/L Calcium (8.6-10.8) mg/dL Total Bilirubin (0.2-1.2) mg/dL Direct Bilirubin (0.0-0.5) mg/dL Indirect Bilirubin (0.0-1.2) mg/dL AST (5-34) Units/L ALT (0-55) Units/L Alkaline Phosphatase (38-126) Units/L Troponin I 0.00 (0-0.03) ng/mL B-Natriuretic Peptide 346 H (0-100) pg/mL Serum Total Protein (6.0-8.3) g/dL Albumin (3.5-5.0) g/dL Globulin (2.4-3.5) g/dL Albumin/Globulin Ratio (1.1-2.2) 02/17/17 Range/Units 16:14 WBC (4.3-11.1) K/mcL RBC (3.82-4.97) M/mcL Hgb (11.5-15.4) g/dL Hct (35.3-44.9) % MCV (83.0-100.0) fL MCH (28.0-33.3) pg MCHC (31.6-35.5) g/dL RDW (11.5-14.5) % Plt Count (140-400) K/mcL MPV (9.4-12.4) fL Nucleated RBCs/100 WBC (0) /100 WBC PT (9.4-12.1) Seconds INR APTT (26.0-36.0) Seconds ABG pH 7.39 (7.32-7.45) pH Units ABG pCO2 59 H (35-45) mmHg ABG pO2 131 H (85-104) mmHg ABG HCO3 36 H (21-27) mEq/L ABG Total CO2 38 H (20-26) mEq/L ABG O2 Saturation 99 H (95-98) % ABG Base Excess 9 H (-2 to 3) mEq/L Sodium (136-145) mEq/L Potassium (3.5-4.5) mEq/L Chloride (98-109) mEq/L Carbon Dioxide (19-29) mEq/L BUN (7-20) mg/dL Creatinine (0.57-1.11) mg/dL Est GFR ( Amer) (> 60) Est GFR (Non-Af Amer) (> 60) BUN/Creatinine Ratio (6-26) Glucose (70-99) mg/dL Calculated Osmolality (280-300) Lactic Acid (0.5-2.2) mmol/L Calcium (8.6-10.8) mg/dL Total Bilirubin (0.2-1.2) mg/dL Direct Bilirubin (0.0-0.5) mg/dL Indirect Bilirubin (0.0-1.2) mg/dL AST (5-34) Units/L ALT (0-55) Units/L Alkaline Phosphatase (38-126) Units/L Troponin I (0-0.03) ng/mL B-Natriuretic Peptide (0-100) pg/mL Serum Total Protein (6.0-8.3) g/dL Albumin (3.5-5.0) g/dL Globulin (2.4-3.5) g/dL Albumin/Globulin Ratio (1.1-2.2) - Radiology Data Radiology results reviewed: Yes I reviewed the patient's radiology results. - EKG Data EKG attestation: Yes I reviewed and interpreted this EKG. EKG results narrative: 15:52 Ventricular rate 92 bpm, QRS duration 94 ms, QT 374 ms, QTC 424 ms, normal axis. Atrial fibrillation with a ventricular rate of 93 bpm. There are no ischemic ST changes noted in this electrocardiogram. His EKG is nothing different from one performed on 01/23/2017.
[2017-02-17 16:17] LABS: ABG Base Excess 9 mEq/L (-2 to 3); ABG HCO3 36 mEq/L (21-27); ABG Oxygen Saturation 99 % (95-98); ABG PCO2 59 mmHg (35-45); ABG PH 7.39 pH Units (7.32-7.45); ABG PO2 131 mmHg (85-104); ABG TCO2 38 mEq/L (20-26)
[2017-02-17 16:20] LABS: Hematocrit 34.6 % (35.3-44.9); Mean Corpuscular HGB Conc 28.9 g/dL (31.6-35.5)
[2017-02-17 16:22] LABS: Basophils % 0.3 %; Eosinophils # 0.1 K/mcL (0.0-0.6); Eosinophils % 0.9 %; Immature Granulocytes % 0.5 % (0-4); Lymphocytes # 1.9 K/mcL (0.6-4.6); Lymphocytes % 16.1 %; Mean Corpuscular Hemoglobin 26.4 pg (28.0-33.3); Mean Corpuscular Volume 91.3 fL (83.0-100.0); Mean Platelet Volume 9.7 fL (9.4-12.4); Monocytes # 0.6 K/mcL (0.0-1.3); Neutrophils # 9.3 K/mcL (1.6-8.9); Nucleated Red Blood Cells 0.3 /100 WBC (0); Platelet Count 268 K/mcL (140-400); Red Blood Count 3.79 M/mcL (3.82-4.97); Red Cell Distribution Width 21.6 % (11.5-14.5); Segmented Neutrophils % 77.2 %
[2017-02-17 16:27] LABS: INR 1.4; Prothrombin Time 14.8 Seconds (9.4-12.1)
[2017-02-17 16:29] LABS: Activated Partial Thrombo Time 24.9 Seconds (26.0-36.0)
[2017-02-17 16:34] LABS: Alanine Aminotransferase 8 Units/L (0-55); Albumin 2.9 g/dL (3.5-5.0); Albumin/Globulin Ratio 0.7 (1.1-2.2); Alkaline Phosphatase 107 Units/L (38-126); Aspartate Amino Transferase 11 Units/L (5-34); BUN/Creatinine Ratio 19 (6-26); Bilirubin,Direct 0.3 mg/dL (0.0-0.5); Bilirubin,Indirect 0.3 mg/dL (0.0-1.2); Bilirubin,Total 0.6 mg/dL (0.2-1.2); Blood Urea Nitrogen 15 mg/dL (7-20); Calcium 9.3 mg/dL (8.6-10.8); Carbon Dioxide 35 mEq/L (19-29); Chloride 99 mEq/L (98-109); Globulin 4.3 g/dL (2.4-3.5); Glucose 169 mg/dL (70-99); Osmolality,Calculated 303 (280-300); Potassium 3.4 mEq/L (3.5-4.5); Sodium 144 mEq/L (136-145); Total Protein 7.2 g/dL (6.0-8.3); eGFR For African Americans > 60 (> 60); eGFR For Non-African Americans > 60 (> 60)
[2017-02-17 16:53] LABS: Anisocytosis 2+ (Not Present); Hypochromasia Present (Not Present); Platelet Estimate Normal (Normal)
[2017-02-17 17:55] LABS: Bilirubin,Urine Negative (Negative); Blood,Urine Negative (Negative); Clarity,Urine Clear (Clear); Color,Urine Yellow (Yellow); Glucose,Urine (UA) Normal (Normal); Ketones,Urine Negative (Negative); Leukocyte Esterase,Urine Negative (Negative); Nitrite,Urine Negative (Negative); Protein,Urine Negative (Neg-Trace); Specific Gravity,Urine 1.016 (1.010-1.025); Urobilinogen,Urine Normal (Normal)
[2017-02-17] MEDS ORDERED: *HR* Morphine 2 MG/ML SYRINGE IVP PRN (19:53)
[2017-02-17] MEDS ORDERED: Ondansetron 4 MG/2 ML VIAL IVP PRN (19:53)
[2017-02-17] MEDS ORDERED: Naloxone 0.4 MG/ML INJ IVP PRN (19:53)
[2017-02-17] MEDS ORDERED: Acetaminophen 325 MG TABLET PO PRN (19:53)
[2017-02-17] MEDS ORDERED: *HR* Dextrose 50 % in Water (Syg) 50 ML SYRINGE IVP PRN (19:59)
[2017-02-17] MEDS ORDERED: Dextrose Gel 15 GM PO PRN ×2 (19:59)
[2017-02-17] MEDS ORDERED: D5% in Water 1,000 ML IVC PRN (19:59)
--- NOTE | 2017-02-17 20:02 | Internal Med History&Physical ---
<Sheila Trujillo - Last Filed: 02/17/17 23:50> Date of Encounter: 02/17/17 Time of Encounter: 20:02 Assessment and Plan (1) Acute exacerbation of chronic obstructive airways disease Current visit: Yes Status: Acute Patient has been experiencing increasing shortness of breath over the past few days. She does have a history of COPD and she continues to smoke. She presented with oxygen saturation 78% chest x-ray no acute process she had some signs of leukocytosis. She is placed on BiPAP we will continue to wean oxygen down to her home oxygen 4 L nasal cannula to maintain SPO2 greater than 92% 2 continue with steroids to taper 3. Bronchodilators 4 patient was admitted last month for COPD exacerbation she feels once she is weaned off her steroids she is back into exacerbation. Consult pulmonology 5 encourage patient stopped smoking offered nicotine patch which she declined at this time (2) Acute and chronic respiratory failure Current visit: Yes Status: Acute Patient presented hypoxic with SPO2 78% on 4 L nasal cannula. Most likely secondary to COPD exacerbation. Patient does not appear to be fluid overloaded at this time BNP was 346 which is been higher in the past, chest x-ray no acute process, she has chronic lower extremity edema however she states has not been any worse than usual. Lung sounds with scattered wheezes throughout She was placed on BiPAP which we will continue to wean back to her home O2 4 L nasal cannula Consult pulmonology Qualifiers: Respiratory failure complication: hypoxia Qualified Code(s): J96.21 - Acute and chronic respiratory failure with hypoxia (3) CHF (congestive heart failure) Current visit: No Status: Acute 11 we will continue with Lasix 40 mg twice a day 2 low sodium diet 3 monitor intake output daily weights Qualifiers: Congestive heart failure type: diastolic Congestive heart failure chronicity: acute on chronic Qualified Code(s): I50.33 - Acute on chronic diastolic (congestive) heart failure (4) Atrial fibrillation Current visit: No Status: Chronic 1 presently rate controlled we will continue with Cardizem as well as aspirin Qualifiers: Atrial fibrillation type: chronic Qualified Code(s): I48.2 - Chronic atrial fibrillation (5) Tobacco use disorder Current visit: No Status: Chronic Encourage patient to stop smoking and offered nicotine patch which she declined at this time (6) TYE (obstructive sleep apnea) Current visit: No Status: Chronic Continue with BiPAP while sleeping (7) Hypertension Current visit: No Status: Chronic Presently controlled we will continue with home medications Qualifiers: Hypertension type: essential hypertension Qualified Code(s): I10 - Essential (primary) hypertension (8) Diabetes mellitus Current visit: No Status: Chronic Accu-Cheks before meals at bedtime insulin scale insulin will hold oral antidiabetics for now. 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 Kyle is a 56 year old female past medical history of COPD CHF diabetes morbid obesity. According to the patient she has been experiencing increasing shortness of breath on exertion over the past few days. She has chronic cough however she has had increasing sputum production with yellow thick sputum. She continues to smoke daily however since she has been short of breath she has not been able to smoke. She is on chronic oxygen use despite this she continues to be short of breath. She denies any fevers or chills weight loss or weight gain chest pain abdominal pain or lower extremity swelling. She has a state a history of COPD and has been on steroids treatment. She states once she stops taking her steroids about a week later she will have another exacerbation She presented to the residency clinic pulse ox of 78% on 4 L. She was transported over to the ER for further workup and evaluation. Patient was given aggressive breathing treatments as well as steroids and Lasix and placed on BiPAP Workup in the ER revealed CHF versus COPD exacerbation. She has been admitted for further work up evaluation. Presently patient is on BiPAP she does not appear to be any respiratory distress and denies any chest pain. She is hemodynamic in stable at this time. I did review this case with Dr. Acosta agrees with plan. Past Med Surg Social Fam HX - Past Medical History Medical history: arthritis, asthma, atrial fibrillation, CHF, COPD, diabetes, GERD, hyperlipidemia, hypertension, osteoporosis, valvular heart disease, other Psychiatric history: no psych history, other - Past Surgical History Surgical History: non-contributory, other - Social History Smoking Status: Current every day smoker Packs per day: 10 cigs/day Smokeless Tobacco Status: No Alcohol use: rarely Drug use: none - Family History Mother Living Status: Hx Family Cardiac Disorders: Yes Hx Family Endocrine Disorder: Yes (DM) Father Living Status: Hx Family Respiratory Disorders: Yes (Asthma, COPD, Emphysema) Internal Medicine - H&P: Meds Aclidinium [place] [Tudorza Pressair] 1 puff IH BID 09/08/15 [History] Albuterol Sulfate [Proair Hfa] 2 puff IH Q4H PRN 09/08/15 [History] Budesonide/Formoterol 160/4.5 [Symbicort 160/4.5] 2 puff IH BIDR 09/08/15 [ History] Simvastatin [Zocor] 40 mg PO HS 09/08/15 [History] Aspirin 325 mg PO DAILY #60 tablet 09/19/15 [Rx] Diltiazem CD (24hr) [Cardizem CD] 360 mg PO DAILY #30 cap.er.24h 09/19/15 [Rx] Metoprolol [Lopressor] 50 mg PO BID #60 tablet 09/19/15 [Rx] Albuterol Neb [Proventil Neb] 2.5 mg IH Q4HR 07/05/16 [History] Oxygen 4 l .ROUTE AD 12/05/16 [History] Ipratropium/Albuterol Neb [Duoneb] 3 ml IH [id number] PRN inh 12/08/16 [Rx] metFORMIN [Glucophage] 500 mg PO BIDWM #60 tablet 01/27/17 [Rx] Furosemide [Lasix] 40 mg PO BID 02/17/17 [History] 3 Allergy/AdvReac Type Severity Reaction Status Date / Time Penicillins Allergy Rash Verified 09/03/16 22:33 All Systems PM: A 10-system review of systems was performed and is negative for pertinent findings except as documented above in the HPI. - Constitutional Constitutional: excessive sweating, no chills, no fever(s), no night sweats - EENT Eyes: no change in vision, no discharge, no pain, no photophobia Nose, mouth and throat: no dysphagia, no nasal discharge, no neck pain, no sore throat - Cardiovascular Cardiovascular ROS IM: dyspnea, dyspnea on exertion, edema, no chest pain, no diaphoresis, no lightheadedness, no palpitations, no syncope - Respiratory Respiratory: cough, dyspnea on exertion, change in phlegm color - Gastrointestinal Gastrointestinal: no abdominal pain, no diarrhea, no hematemesis, no hematochezia, no melena, no nausea, no vomiting - Genitourinary Genitourinary: no change in urinary stream, no dysuria, no flank pain, no hematuria - Musculoskeletal Musculoskeletal ROS IM: no numbness, no tingling - Integumentary Integumentary IM: no rash, no unusual bruising - Neurological Neurological ROS: no confusion, no convulsions, no focal weakness, no numbness, no tingling, no tremor(s) - Hematologic/Lymphatic Hematologic/Lymphatic: no easy bruising - Constitutional Vitals: Temp Pulse Resp BP Pulse Ox 98.0 F 86 28 103/74 95 02/17/17 18:55 02/17/17 18:55 02/17/17 18:55 02/17/17 18:55 02/17/17 18:55 General appearance: Present: A&O X 3, morbidly obese - Head Head exam: Present: atraumatic, normocephalic - Eye Eye exam: Present: PERRL, conjuntiva pink, sclera anicteric Pupils: Present: PERRL - Neck Neck exam general surgery: Present: supple, trachea midline. Absent: lymphadenopathy - Respiratory Respiratory exam: Present: rhonchi, wheezes. Absent: accessory muscle use, rales - Cardiovascular Cardiovascular exam: Present: RRR, +S1, +S2. Absent: diastolic murmur, gallop, rubs, systolic murmur - GI/Abdominal GI/Abdominal exam: Present: normal bowel sounds, soft, no peritoneal signs. Absent: distended, tenderness - Extremities Exam Extremities exam: Present: warm, radial pulses palpable and symmetrical. Absent : calf tenderness, cyanotic, pedal edema - Neurological Exam Neurological exam: Present: CN II-XII intact, oriented X3, no focal deficits. Absent: pronater drift, facial droop, speech deficit - Skin Skin exam: Present: dry, intact Internal Med - H&P Results - Labs CBC & Chem 7: 02/17/17 16:07 02/17/17 16:07 Labs: Urine 02/17/17 Range/Units 17:45 Urine Color Yellow (Yellow) Urine Clarity Clear (Clear) Urine pH 7.0 (5.0-8.0) pH Units Ur Specific [place] 1.016 (1.010-1.025) Urine Protein Negative (Neg-Trace) mg/dL Urine Glucose (UA) Normal (Normal) mg/dL - Diagnostic Studies Chest x-ray Additional comments: Chest X-Ray 02/17/17 15:46 IMPRESSION: No acute cardiopulmonary process. D/ / Adele Powell MD / Adele Powell MD Interpreting Provider: Adele Powell MD <Olman Acosta - Last Filed: 02/18/17 03:33> Date of Encounter: 02/17/17 Assessment and Plan (1) Hypokalemia Current visit: Yes Status: Acute Likely from cellular shift from bronchodilator use, will replace and follow BMP Internal Medicine - H&P: HPI History of present illness: Ms. Kyle is a 56 year old female All Systems PM: A 10-system review of systems was performed and is negative for pertinent findings except as documented above in the HPI. - Constitutional Vitals: Temp Pulse Resp BP Pulse Ox 98.5 F 90 28 101/67 93 02/17/17 23:40 02/17/17 23:40 02/17/17 23:45 02/17/17 23:40 02/17/17 23:45 Internal Med - H&P Results - Labs CBC & Chem 7: 02/17/17 16:07 02/17/17 16:07 Labs: Cardiac Enzymes 02/17/17 Range/Units 21:35 Troponin I 0.00 (0-0.03) ng/mL Urine 02/17/17 Range/Units 17:45 Urine Color Yellow (Yellow) Urine Clarity Clear (Clear) Urine pH 7.0 (5.0-8.0) pH Units Ur Specific [place] 1.016 (1.010-1.025) Urine Protein Negative (Neg-Trace) mg/dL Urine Glucose (UA) Normal (Normal) mg/dL - Attending Attestation I examined this patient and my medical decision-making was reviewed with the Advanced Practice Nurse. I agree with the documented findings, disposition and treatment plan as described. Patient will require A prolonged course of steroid taper. Olman Acosta MD, MPH Hospitalist
[2017-02-17] MEDS: Budesonide/Formoterol 160/4.5 MDI IH SCH (20:56)
[2017-02-17] MEDS: Albuterol 2.5 MG/3 ML NEBULIZER IH SCH ×2 (20:56→23:45)
[2017-02-17] MEDS: Insulin LISPRO 300 UNITS/3 ML VIAL SQ SCH (21:44)
[2017-02-17] MEDS: Melatonin 3 MG TABLET PO PRN (23:22)
[2017-02-18] MEDS: methylPREDNISolone 125 MG/2 ML VIAL IVP SCH ×5 (00:05→23:22)
[2017-02-18] MEDS: Albuterol 2.5 MG/3 ML NEBULIZER IH SCH ×6 (04:00→23:10)
[2017-02-18] MEDS: *HR* Heparin 5,000 UNIT/ML VIAL SQ SCH ×2 (05:24→16:48)
[2017-02-18 06:03] LABS: Basophils % 0.1 %; Hemoglobin 9.8 g/dL (11.5-15.4)
[2017-02-18 06:04] LABS: Hematocrit 33.8 % (35.3-44.9); Immature Granulocytes % 0.5 % (0-4); Lymphocytes # 0.8 K/mcL (0.6-4.6); Lymphocytes % 8.3 %; Mean Corpuscular Hemoglobin 26.3 pg (28.0-33.3); Mean Corpuscular Volume 90.9 fL (83.0-100.0); Mean Platelet Volume 9.4 fL (9.4-12.4); Monocytes # 0.1 K/mcL (0.0-1.3); Monocytes % 0.9 %; Neutrophils # 9.1 K/mcL (1.6-8.9); Nucleated Red Blood Cells 0.4 /100 WBC (0); Platelet Count 279 K/mcL (140-400); Red Blood Count 3.72 M/mcL (3.82-4.97); Segmented Neutrophils % 90.2 %
[2017-02-18 06:18] LABS: BUN/Creatinine Ratio 24 (6-26); Blood Urea Nitrogen 19 mg/dL (7-20); Calcium 9.2 mg/dL (8.6-10.8); Carbon Dioxide 36 mEq/L (19-29); Chloride 101 mEq/L (98-109); Glucose 229 mg/dL (70-99); Magnesium 1.7 mg/dL (1.6-2.6); Osmolality,Calculated 310 (280-300); Potassium 3.8 mEq/L (3.5-4.5); Sodium 145 mEq/L (136-145); eGFR For African Americans > 60 (> 60); eGFR For Non-African Americans > 60 (> 60)
[2017-02-18 06:47] LABS: Anisocytosis 1+ (Not Present); Hypochromasia Present (Not Present); Macrocytosis Present (Not Present); Platelet Estimate Normal (Normal); Polychromasia 1+ (Not Present)
[2017-02-18] MEDS: Budesonide/Formoterol 160/4.5 MDI IH SCH ×2 (07:43→20:41)
--- NOTE | 2017-02-18 08:43 | Pulmonology Consult Note ---
Date of Encounter: 02/18/17 Time of Encounter: 08:00 Assessment and Plan (1) Acute exacerbation of chronic obstructive airways disease Current Visit: Yes Status: Acute I have explained to patient as long she smoked tobacco noncompliance she will have COPD exacerbation and she understands that. She is on systemic steroid and bronchodilators I will add Spiriva because she takes Tudorza at home and also had azithromycin even though her chest x-ray does not support any evidence of pneumonia but macrolides would help AECOPD. Thank you very much for the consultation and patient is already has a follow-up appointment in the clinic in April according to the patient. (2) Acute and chronic respiratory failure Current Visit: Yes Status: Acute Patient is on noninvasive ventilation/BiPAP and also long-term oxygen therapy to keep SPO2 around 90%. Qualifiers: Respiratory failure complication: hypoxia and hypercapnia Qualified Code(s) : J96.21 - Acute and chronic respiratory failure with hypoxia; J96.22 - Acute and chronic respiratory failure with hypercapnia; J96.22 - Acute and chronic respiratory failure with hypercapnia; J96.22 - Acute and chronic respiratory failure with hypercapnia (3) Morbid obesity Current Visit: No Status: Chronic Weight loss will help, I suspect there is also obesity hypoventilation syndrome (4) Tobacco abuse Current Visit: Yes Status: Chronic Advised patient to quit smoking. (5) Tobacco abuse counseling Current Visit: Yes Status: Chronic (6) Obesity hypoventilation syndrome Current Visit: Yes Status: Chronic Weight loss and patient is on noninvasive ventilation. History of Present Illness Consult date: 02/18/17 Requesting physician: Olman Acosta Reason for consult: COPD Chief complaint: Shortness of breath History of present illness: This is a pleasant 56-year-old female with significant smoking history and continues to smoke tobacco and also with obstructive sleep apnea on BiPAP at home as well as long-term oxygen therapy, was complaining of worsening of her shortness of breath for the past few days. She has been seen in the pulmonary clinic and she is on bronchodilators. She also has history of congestive heart failure and morbid obesity. She is feeling somewhat better this morning with current treatment. She was able to tolerate BiPAP last night. She was found to be hypoxic in the residency clinic. She has history of exacerbation in the past. She has history of noncompliance as well. At this time she denies any other symptoms. She denies any hemoptysis and she has worsening of her wheezing and productive cough. She denies any fevers or chills. She has dyspnea and exertional minimal activities. Past Med Surg Social Fam HX - Past Medical History Medical history: arthritis, asthma, atrial fibrillation, CHF, COPD, diabetes, GERD, hyperlipidemia, hypertension, osteoporosis, valvular heart disease, other Psychiatric history: no psych history, other - Past Surgical History Surgical History: non-contributory, other - Social History Smoking Status: Current every day smoker Packs per day: 10 cigs/day Smokeless Tobacco Status: No Alcohol use: rarely Drug use: none - Family History Mother Living Status: Hx Family Cardiac Disorders: Yes Hx Family Endocrine Disorder: Yes (DM) Father Living Status: Hx Family Respiratory Disorders: Yes (Asthma, COPD, Emphysema) Medications and Allergies Aclidinium [place] [Tudorza Pressair] 1 puff IH BID 09/08/15 [History] Albuterol Sulfate [Proair Hfa] 2 puff IH Q4H PRN 09/08/15 [History] Budesonide/Formoterol 160/4.5 [Symbicort 160/4.5] 2 puff IH BIDR 09/08/15 [ History] Simvastatin [Zocor] 40 mg PO HS 09/08/15 [History] Aspirin 325 mg PO DAILY #60 tablet 09/19/15 [Rx] Diltiazem CD (24hr) [Cardizem CD] 360 mg PO DAILY #30 cap.er.24h 09/19/15 [Rx] Metoprolol [Lopressor] 50 mg PO BID #60 tablet 09/19/15 [Rx] Albuterol Neb [Proventil Neb] 2.5 mg IH Q4HR 07/05/16 [History] Oxygen 4 l .ROUTE AD 12/05/16 [History] Ipratropium/Albuterol Neb [Duoneb] 3 ml IH [id number] PRN inh 12/08/16 [Rx] metFORMIN [Glucophage] 500 mg PO BIDWM #60 tablet 01/27/17 [Rx] Furosemide [Lasix] 40 mg PO BID 02/17/17 [History] 3 Allergy/AdvReac Type Severity Reaction Status Date / Time Penicillins Allergy Rash Verified 09/03/16 22:33 All Systems: A 10-system review of systems was performed and is negative for pertinent findings except as documented above in the HPI. Physical Examination Vital Signs: Vital Signs, Last 4 Hours Temp Pulse Resp BP Pulse Ox 02/18/17 08:25 18 97 02/18/17 07:51 96.7 F L 75 18 111/79 97 General appearance: no acute distress Eyes: nonicteric ENT: oropharynx moist Mallampati (class): 4 Neck: supple, no lymphadenopathy, no JVD Effort: mildly labored Inspection: other (Morbidly obese) Auscultation: bilateral: wheezes Percussion: bilateral: not dull Cardiovascular: regular rate and rhythm Gastrointestinal: normoactive bowel sounds, non-distended Extremities: cyanosis, edema normal mental status, non-focal exam mood appropriate Results - Laboratory Findings CBC and BMP: 02/18/17 05:49 02/18/17 05:49 ABG ABG pH 7.39 pH Units (7.32-7.45) 02/17/17 16:14 ABG pCO2 59 mmHg (35-45) H 02/17/17 16:14 ABG pO2 131 mmHg (85-104) H 02/17/17 16:14 ABG O2 Saturation 99 % (95-98) H 02/17/17 16:14 PT/INR, D-dimer PT 14.8 Seconds (9.4-12.1) H 02/17/17 16:07 Abnormal lab findings: Abnormal lab results RBC 3.72 M/mcL (3.82-4.97) L 02/18/17 05:49 Hgb 9.8 g/dL (11.5-15.4) L 02/18/17 05:49 Hct 33.8 % (35.3-44.9) L 02/18/17 05:49 MCH 26.3 pg (28.0-33.3) L 02/18/17 05:49 MCHC 29.0 g/dL (31.6-35.5) L 02/18/17 05:49 RDW 21.0 % (11.5-14.5) H 02/18/17 05:49 Neutrophils # 9.1 K/mcL (1.6-8.9) H 02/18/17 05:49 Nucleated RBCs/100 WBC 0.4 /100 WBC (0) H 02/18/17 05:49 Polychromasia 1+ (Not Present) A 02/18/17 05:49 Hypochromasia Present (Not Present) A 02/18/17 05:49 Anisocytosis 1+ (Not Present) A 02/18/17 05:49 Macrocytosis Present (Not Present) A 02/18/17 05:49 PT 14.8 Seconds (9.4-12.1) H 02/17/17 16:07 APTT 24.9 Seconds (26.0-36.0) L 02/17/17 16:07 ABG pCO2 59 mmHg (35-45) H 02/17/17 16:14 ABG pO2 131 mmHg (85-104) H 02/17/17 16:14 ABG HCO3 36 mEq/L (21-27) H 02/17/17 16:14 ABG Total CO2 38 mEq/L (20-26) H 02/17/17 16:14 ABG O2 Saturation 99 % (95-98) H 02/17/17 16:14 ABG Base Excess 9 mEq/L (-2 to 3) H 02/17/17 16:14 Carbon Dioxide 36 mEq/L (19-29) H 02/18/17 05:49 Glucose 229 mg/dL (70-99) H 02/18/17 05:49 Calculated Osmolality 310 (280-300) H 02/18/17 05:49 B-Natriuretic Peptide 346 pg/mL (0-100) H 02/17/17 16:07 Albumin 2.9 g/dL (3.5-5.0) L 02/17/17 16:07 Globulin 4.3 g/dL (2.4-3.5) H 02/17/17 16:07 Albumin/Globulin Ratio 0.7 (1.1-2.2) L 02/17/17 16:07 - Diagnostic Findings Chest x-ray: report reviewed, image reviewed Consult Discharge Plan - Plan Referrals: Aleksey Huggins DO [Primary Care Provider] -
[2017-02-18] MEDS: Insulin LISPRO 300 UNITS/3 ML VIAL SQ SCH ×4 (09:56→21:00)
[2017-02-18] MEDS: Diltiazem CD (24hr) 180 MG CAPSULE PO SCH (09:57)
[2017-02-18] MEDS: Azithromycin 250 MG TABLET PO SCH (09:58)
[2017-02-18] MEDS: Aspirin 325 MG TABLET PO SCH (09:58)
[2017-02-18] MEDS: Furosemide 40 MG TABLET PO SCH ×2 (09:58→16:49)
[2017-02-18] MEDS: Tiotropium 18 MCG inhalation IH SCH (11:40)
--- NOTE | 2017-02-18 18:38 | Internal Med Progress Note ---
Date of Encounter: 02/18/17 Time of Encounter: 10:30 - Assessment and plan (1) Acute and chronic respiratory failure Current Visit: Yes Status: Acute Assessment and plan: Continue Duo Nebs, Solu Medrol. Pulm following, appreciat recs, Azithro and Symbicort added. Will monitor respiratory status. Qualifiers: Respiratory failure complication: hypoxia and hypercapnia Qualified Code(s) : J96.21 - Acute and chronic respiratory failure with hypoxia; J96.22 - Acute and chronic respiratory failure with hypercapnia; J96.22 - Acute and chronic respiratory failure with hypercapnia; J96.22 - Acute and chronic respiratory failure with hypercapnia (2) Acute exacerbation of chronic obstructive airways disease Current Visit: Yes Status: Acute (3) Congestive heart failure Current Visit: Yes Status: Chronic Qualifiers: Congestive heart failure type: unspecified congestive heart failure type Congestive heart failure chronicity: acute on chronic Qualified Code(s): I50.9 - Heart failure, unspecified (4) Obesity hypoventilation syndrome Current Visit: Yes Status: Chronic (5) Tobacco abuse Current Visit: Yes Status: Chronic - Subjective Interval history: Patient states she is still short of breath. She had bipap which had no relief of symptoms. She feels most relief with Duo Nebs. - Constitutional Vitals: Temp Pulse Resp BP Pulse Ox 97.6 F 76 20 117/75 98 02/18/17 15:46 02/18/17 15:46 02/18/17 16:28 02/18/17 15:46 02/18/17 16:28 General appearance: Present: A&O X 3, morbidly obese Exam: Lungs: No acute respiratory distress at rest. Positive for dyspnea with prolonged conversation. Poor air exchange, tight breath sounds. CVS: Distant heart sounds, RRR, Ns1/s2 Ext: + bilateral non-pitting edema in lower extremities. Internal Medicine: Result - Labs CBC & Chem 7: 02/18/17 05:49 02/18/17 05:49 Labs: Short CBC 02/18/17 Range/Units 05:49 WBC 10.1 (4.3-11.1) K/mcL Hgb 9.8 L (11.5-15.4) g/dL Hct 33.8 L (35.3-44.9) % Plt Count 279 (140-400) K/mcL Neutrophils # 9.1 H (1.6-8.9) K/mcL BMP 02/18/17 05:49 Sodium 145 Potassium 3.8 Chloride 101 Carbon Dioxide 36 H BUN 19 Creatinine 0.79 Glucose 229 H Calcium 9.2 Cardiac Enzymes 02/17/17 02/18/17 Range/Units 21:35 05:49 Troponin I 0.00 0.00 (0-0.03) ng/mL - ABG Interpretation ABG results: ABG ABG pH 7.39 pH Units (7.32-7.45) 02/17/17 16:14 ABG pCO2 59 mmHg (35-45) H 02/17/17 16:14 ABG pO2 131 mmHg (85-104) H 02/17/17 16:14 ABG O2 Saturation 99 % (95-98) H 02/17/17 16:14 PT/INR, D-dimer PT 14.8 Seconds (9.4-12.1) H 02/17/17 16:07 Consult Discharge Plan - Plan Referrals: Aleksey Huggins DO [Primary Care Provider] -
[2017-02-18] MEDS: Melatonin 3 MG TABLET PO PRN (23:22)
[2017-02-19] MEDS: Albuterol 2.5 MG/3 ML NEBULIZER IH SCH ×6 (04:01→23:54)
[2017-02-19] MEDS: *HR* Heparin 5,000 UNIT/ML VIAL SQ SCH ×2 (06:56→17:17)
[2017-02-19] MEDS: methylPREDNISolone 125 MG/2 ML VIAL IVP SCH ×3 (06:57→17:18)
[2017-02-19 07:18] LABS: Basophils % 0.1 %; Hemoglobin 9.3 g/dL (11.5-15.4); Immature Granulocytes % 0.6 % (0-4); Lymphocytes % 6.3 %; Mean Corpuscular HGB Conc 29.1 g/dL (31.6-35.5); Mean Corpuscular Hemoglobin 26.9 pg (28.0-33.3); Mean Corpuscular Volume 92.5 fL (83.0-100.0); Mean Platelet Volume 9.9 fL (9.4-12.4); Monocytes # 0.4 K/mcL (0.0-1.3); Monocytes % 2.2 %; Neutrophils # 14.6 K/mcL (1.6-8.9); Nucleated Red Blood Cells 0.2 /100 WBC (0); Platelet Count 302 K/mcL (140-400); Red Blood Count 3.46 M/mcL (3.82-4.97); Red Cell Distribution Width 21.2 % (11.5-14.5); Segmented Neutrophils % 90.8 %
[2017-02-19 07:35] LABS: BUN/Creatinine Ratio 31 (6-26); Blood Urea Nitrogen 26 mg/dL (7-20); Calcium 9.6 mg/dL (8.6-10.8); Carbon Dioxide 37 mEq/L (19-29); Chloride 100 mEq/L (98-109); Glucose 229 mg/dL (70-99); Osmolality,Calculated 308 (280-300); Sodium 143 mEq/L (136-145); eGFR For African Americans > 60 (> 60); eGFR For Non-African Americans > 60 (> 60)
[2017-02-19] MEDS: Diltiazem CD (24hr) 180 MG CAPSULE PO SCH (09:51)
[2017-02-19] MEDS: Furosemide 40 MG TABLET PO SCH ×2 (09:52→17:17)
[2017-02-19] MEDS: Azithromycin 250 MG TABLET PO SCH (09:52)
[2017-02-19] MEDS: Aspirin 325 MG TABLET PO SCH (09:52)
[2017-02-19] MEDS: Insulin LISPRO 300 UNITS/3 ML VIAL SQ SCH ×4 (09:54→20:33)
[2017-02-19] MEDS: Budesonide/Formoterol 160/4.5 MDI IH SCH ×2 (10:19→21:40)
[2017-02-19] MEDS: Tiotropium 18 MCG inhalation IH SCH (10:19)
--- NOTE | 2017-02-19 11:14 | Electrocardiograph Report ---
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
--- NOTE | 2017-02-19 22:27 | Internal Med Progress Note ---
Date of Encounter: 02/19/17 Time of Encounter: 13:00 - Assessment and plan (1) Acute and chronic respiratory failure Current Visit: Yes Status: Acute Assessment and plan: Continue Duo Nebs, Solu Medrol, Symicort, azithromycin. Will monitor respiratory status. Anticipate 1-2 more days given patient respiratory status is currently poor. This is worsened by obesity hypoventilation syndrome. Qualifiers: Respiratory failure complication: hypoxia and hypercapnia Qualified Code(s) : J96.21 - Acute and chronic respiratory failure with hypoxia; J96.22 - Acute and chronic respiratory failure with hypercapnia; J96.22 - Acute and chronic respiratory failure with hypercapnia; J96.22 - Acute and chronic respiratory failure with hypercapnia (2) Acute exacerbation of chronic obstructive airways disease Current Visit: Yes Status: Acute Assessment and plan: As above (3) Congestive heart failure Current Visit: Yes Status: Chronic Qualifiers: Congestive heart failure type: unspecified congestive heart failure type Congestive heart failure chronicity: acute on chronic Qualified Code(s): I50.9 - Heart failure, unspecified (4) Obesity hypoventilation syndrome Current Visit: Yes Status: Chronic (5) Tobacco abuse Current Visit: Yes Status: Chronic Assessment and plan: Discussed tobacco cessation with patient. She states she is thinking about giving it up since she is in the hospital so much. - Subjective Interval history: Dyspnea persists. She feels improvement but states she is not ready to go home. She denies fevers/chills, n/v, cough. - Constitutional Vitals: Temp Pulse Resp BP Pulse Ox 97.9 F 92 18 119/55 92 02/19/17 19:18 02/19/17 19:18 02/19/17 19:18 02/19/17 19:18 02/19/17 19:18 General appearance: Present: A&O X 3, morbidly obese Exam: Gen: NAD CVS: RRR, no m/r/g, no JVD Lungs: Poor aeration of lungs, wheezing throughout all lung mcmahon. Breath sounds are absent at bases. Conversationally dyspneic. Abd: truncal obesity, non tender, non-distended. Ext: no edema Internal Medicine: Result - Labs CBC & Chem 7: 02/19/17 06:01 02/19/17 06:01 Labs: Short CBC 02/19/17 Range/Units 06:01 WBC 16.1 H D (4.3-11.1) K/mcL Hgb 9.3 L (11.5-15.4) g/dL Hct 32.0 L (35.3-44.9) % Plt Count 302 (140-400) K/mcL Neutrophils # 14.6 H (1.6-8.9) K/mcL BMP 02/19/17 06:01 Sodium 143 Potassium 5.0 H D Chloride 100 Carbon Dioxide 37 H BUN 26 H Creatinine 0.84 Glucose 229 H Calcium 9.6 - ABG Interpretation ABG results: ABG ABG pH 7.39 pH Units (7.32-7.45) 02/17/17 16:14 ABG pCO2 59 mmHg (35-45) H 02/17/17 16:14 ABG pO2 131 mmHg (85-104) H 02/17/17 16:14 ABG O2 Saturation 99 % (95-98) H 02/17/17 16:14 PT/INR, D-dimer PT 14.8 Seconds (9.4-12.1) H 02/17/17 16:07 Consult Discharge Plan - Plan Referrals: Aleksey Huggins DO [Primary Care Provider] -
[2017-02-19] MEDS: Melatonin 3 MG TABLET PO PRN (23:44)
[2017-02-20] MEDS: methylPREDNISolone 125 MG/2 ML VIAL IVP SCH ×3 (00:30→11:44)
[2017-02-20] MEDS: Albuterol 2.5 MG/3 ML NEBULIZER IH SCH ×3 (03:52→10:30)
[2017-02-20 05:47] LABS: Basophils % 0.1 %; Hematocrit 32.2 % (35.3-44.9); Hemoglobin 9.2 g/dL (11.5-15.4); Immature Granulocytes % 0.9 % (0-4); Lymphocytes # 0.8 K/mcL (0.6-4.6); Lymphocytes % 5.8 %; Mean Corpuscular HGB Conc 28.6 g/dL (31.6-35.5); Mean Corpuscular Hemoglobin 26.1 pg (28.0-33.3); Mean Corpuscular Volume 91.2 fL (83.0-100.0); Mean Platelet Volume 9.5 fL (9.4-12.4); Monocytes # 0.4 K/mcL (0.0-1.3); Monocytes % 2.4 %; Neutrophils # 13.2 K/mcL (1.6-8.9); Nucleated Red Blood Cells 0.1 /100 WBC (0); Platelet Count 274 K/mcL (140-400); Red Blood Count 3.53 M/mcL (3.82-4.97); Red Cell Distribution Width 21.2 % (11.5-14.5); Segmented Neutrophils % 90.8 %
[2017-02-20 05:59] LABS: BUN/Creatinine Ratio 40 (6-26); Blood Urea Nitrogen 32 mg/dL (7-20); Calcium 9.3 mg/dL (8.6-10.8); Carbon Dioxide 34 mEq/L (19-29); Chloride 101 mEq/L (98-109); Glucose 240 mg/dL (70-99); Osmolality,Calculated 309 (280-300); Sodium 142 mEq/L (136-145); eGFR For African Americans > 60 (> 60); eGFR For Non-African Americans > 60 (> 60)
[2017-02-20 06:00] LABS: Potassium 3.9 mEq/L (3.5-4.5)
[2017-02-20] MEDS: *HR* Heparin 5,000 UNIT/ML VIAL SQ SCH ×2 (06:09→18:09)
[2017-02-20 06:17] LABS: Anisocytosis 1+ (Not Present); Hypochromasia Present (Not Present); Polychromasia 1+ (Not Present)
[2017-02-20] MEDS: Insulin LISPRO 300 UNITS/3 ML VIAL SQ SCH ×4 (08:21→20:30)
[2017-02-20] MEDS: Furosemide 40 MG TABLET PO SCH ×2 (08:22→16:45)
[2017-02-20] MEDS: Diltiazem CD (24hr) 180 MG CAPSULE PO SCH (08:22)
[2017-02-20] MEDS: Aspirin 325 MG TABLET PO SCH (08:22)
[2017-02-20] MEDS: Azithromycin 250 MG TABLET PO SCH (08:22)
[2017-02-20] MEDS: Tiotropium 18 MCG inhalation IH SCH (10:30)
[2017-02-20] MEDS: Budesonide/Formoterol 160/4.5 MDI IH SCH ×2 (10:30→20:14)
[2017-02-20] MEDS: Ipratropium/Albuterol Neb 3 ML IH PRN ×2 (15:26→20:14)
[2017-02-20] MEDS: predniSONE 20 MG TABLET PO SCH (18:10)
[2017-02-20] MEDS: Melatonin 3 MG TABLET PO PRN (23:32)
--- NOTE | 2017-02-21 02:29 | Internal Med Progress Note ---
Date of Encounter: 02/20/17 Time of Encounter: 13:26 - Assessment and plan (1) Acute and chronic respiratory failure Current Visit: Yes Status: Acute Assessment and plan: She is near baseline. She has severe COPD and so has dyspnea with minimal exertion. Patient states she feels safe if shes discharged tomorrow. She continues to smoke. Pulmonology was consulted and they have an outpatient visit scheduled with her. She continues to smoke and we discussed cessation for 10 minutes. Qualifiers: Respiratory failure complication: hypoxia and hypercapnia Qualified Code(s) : J96.21 - Acute and chronic respiratory failure with hypoxia; J96.22 - Acute and chronic respiratory failure with hypercapnia; J96.22 - Acute and chronic respiratory failure with hypercapnia; J96.22 - Acute and chronic respiratory failure with hypercapnia (2) Acute exacerbation of chronic obstructive airways disease Current Visit: Yes Status: Acute (3) Congestive heart failure Current Visit: Yes Status: Chronic Qualifiers: Congestive heart failure type: unspecified congestive heart failure type Congestive heart failure chronicity: acute on chronic Qualified Code(s): I50.9 - Heart failure, unspecified (4) Obesity hypoventilation syndrome Current Visit: Yes Status: Chronic (5) Tobacco abuse Current Visit: Yes Status: Chronic - Subjective Interval history: Significantly better than yesterday. She is near her baseline respiratory status on 4L O2. She is not as conversationally dyspneic as yesterday. - Constitutional Vitals: Temp Pulse Resp BP Pulse Ox 97.5 F L 95 28 120/70 96 02/20/17 22:32 02/20/17 22:32 02/20/17 23:37 02/20/17 22:32 02/20/17 23:37 General appearance: Present: A&O X 3, morbidly obese - Head Head exam: Present: atraumatic, normocephalic - Respiratory Additional comments: Poor aeration of lungs, tight wheezing throughout, no rales. - Cardiovascular Cardiovascular exam: Present: RRR, +S1, +S2. Absent: diastolic murmur, gallop, rubs, systolic murmur Internal Medicine: Result - Labs CBC & Chem 7: 02/20/17 05:35 02/20/17 05:35 Labs: Short CBC 02/20/17 Range/Units 05:35 WBC 14.5 H (4.3-11.1) K/mcL Hgb 9.2 L (11.5-15.4) g/dL Hct 32.2 L (35.3-44.9) % Plt Count 274 (140-400) K/mcL Neutrophils # 13.2 H (1.6-8.9) K/mcL BMP 02/20/17 05:35 Sodium 142 Potassium 3.9 D Chloride 101 Carbon Dioxide 34 H BUN 32 H Creatinine 0.81 Glucose 240 H Calcium 9.3 - ABG Interpretation ABG results: ABG ABG pH 7.39 pH Units (7.32-7.45) 02/17/17 16:14 ABG pCO2 59 mmHg (35-45) H 02/17/17 16:14 ABG pO2 131 mmHg (85-104) H 02/17/17 16:14 ABG O2 Saturation 99 % (95-98) H 02/17/17 16:14 PT/INR, D-dimer PT 14.8 Seconds (9.4-12.1) H 02/17/17 16:07 Consult Discharge Plan - Plan Referrals: Aleksey Huggins DO [Primary Care Provider] -
[2017-02-21] MEDS: *HR* Heparin 5,000 UNIT/ML VIAL SQ SCH (06:23)
[2017-02-21 07:19] LABS: Hematocrit 32.7 % (35.3-44.9); Hemoglobin 9.4 g/dL (11.5-15.4); Mean Corpuscular HGB Conc 28.7 g/dL (31.6-35.5); Mean Corpuscular Hemoglobin 26.3 pg (28.0-33.3)
[2017-02-21 07:20] LABS: Mean Corpuscular Volume 91.3 fL (83.0-100.0); Mean Platelet Volume 9.6 fL (9.4-12.4); Nucleated Red Blood Cells 0.2 /100 WBC (0); Platelet Count 284 K/mcL (140-400); Red Blood Count 3.58 M/mcL (3.82-4.97); Red Cell Distribution Width 20.6 % (11.5-14.5)
[2017-02-21 07:23] LABS: BUN/Creatinine Ratio 37 (6-26); Blood Urea Nitrogen 30 mg/dL (7-20); Calcium 9.2 mg/dL (8.6-10.8); Carbon Dioxide 35 mEq/L (19-29); Chloride 100 mEq/L (98-109); Glucose 190 mg/dL (70-99); Osmolality,Calculated 307 (280-300); Potassium 3.9 mEq/L (3.5-4.5); Sodium 143 mEq/L (136-145); eGFR For African Americans > 60 (> 60); eGFR For Non-African Americans > 60 (> 60)
[2017-02-21] MEDS: Budesonide/Formoterol 160/4.5 MDI IH SCH (07:52)
[2017-02-21] MEDS: Ipratropium/Albuterol Neb 3 ML IH PRN ×2 (07:52→13:31)
[2017-02-21] MEDS: Tiotropium 18 MCG inhalation IH SCH (07:54)
[2017-02-21] MEDS: predniSONE 20 MG TABLET PO SCH (07:59)
[2017-02-21] MEDS: Diltiazem CD (24hr) 180 MG CAPSULE PO SCH (07:59)
[2017-02-21] MEDS: Azithromycin 250 MG TABLET PO SCH (07:59)
[2017-02-21] MEDS: Insulin LISPRO 300 UNITS/3 ML VIAL SQ SCH ×2 (07:59→12:37)
[2017-02-21] MEDS: Furosemide 40 MG TABLET PO SCH (07:59)
[2017-02-21] MEDS ORDERED: Aspirin Enteric Coated 325 MG Tablet PO SCH (09:00)
[2017-02-21 09:15] LABS: Lymphocytes # 0.7 K/mcL (0.6-4.6); Monocytes # 0.5 K/mcL (0.0-1.3); Neutrophils # 11.1 K/mcL (1.6-8.9)
[2017-02-21 09:16] LABS: Platelet Estimate Normal (Normal); Polychromasia 1+ (Not Present)
[2017-02-21 09:17] LABS: Anisocytosis 2+ (Not Present)
[2017-02-21 10:36] VITALS: BP 135/90
--- NOTE | 2017-02-21 13:10 | Discharge Summary ---
Date of Encounter: 02/21/17 Time of Encounter: 10:20 - Discharge Diagnosis (1) Acute and chronic respiratory failure Priority: Primary Status: Acute Qualifiers: Respiratory failure complication: hypoxia and hypercapnia Qualified Code(s) : J96.21 - Acute and chronic respiratory failure with hypoxia; J96.22 - Acute and chronic respiratory failure with hypercapnia; J96.22 - Acute and chronic respiratory failure with hypercapnia; J96.22 - Acute and chronic respiratory failure with hypercapnia (2) Acute exacerbation of chronic obstructive airways disease Priority: Secondary Status: Acute (3) Congestive heart failure Priority: Secondary Status: Chronic Qualifiers: Congestive heart failure type: diastolic Congestive heart failure chronicity: chronic Qualified Code(s): I50.32 - Chronic diastolic (congestive ) heart failure (4) Obesity hypoventilation syndrome Priority: Secondary Status: Chronic (5) Tobacco abuse Priority: Secondary Status: Acute - Discharge Medications Prescriptions: Azithromycin [Zithromax] 500 mg PO Q24H #10 tablet predniSONE [PredniSONE] 10 mg PO DAILY 10 Days tablet Home Medications: Aclidinium [place] [Tudorza Pressair] 1 puff IH BID 09/08/15 [History] Albuterol Sulfate [Proair Hfa] 2 puff IH Q4H PRN 09/08/15 [History] Budesonide/Formoterol 160/4.5 [Symbicort 160/4.5] 2 puff IH BIDR 09/08/15 [ History] Simvastatin [Zocor] 40 mg PO HS 09/08/15 [History] Aspirin 325 mg PO DAILY #60 tablet 09/19/15 [Rx] Diltiazem CD (24hr) [Cardizem CD] 360 mg PO DAILY #30 cap.er.24h 09/19/15 [Rx] Metoprolol [Lopressor] 50 mg PO BID #60 tablet 09/19/15 [Rx] Albuterol Neb [Proventil Neb] 2.5 mg IH Q4HR 07/05/16 [History] Oxygen 4 l .ROUTE AD 12/05/16 [History] Ipratropium/Albuterol Neb [Duoneb] 3 ml IH [id number] PRN inh 12/08/16 [Rx] metFORMIN [Glucophage] 500 mg PO BIDWM #60 tablet 01/27/17 [Rx] Furosemide [Lasix] 40 mg PO BID 02/17/17 [History] Azithromycin [Zithromax] 500 mg PO Q24H #10 tablet 02/21/17 [Rx] predniSONE [PredniSONE] 10 mg PO DAILY 10 Days tablet 02/21/17 [Rx] Allergies/Adverse Reactions: 3 Allergy/AdvReac Type Severity Reaction Status Date / Time Penicillins Allergy Rash Verified 09/03/16 22:33 Date of admission: 02/17/17 19:53 Primary care physician: Aleksey Huggins DO Consults: 02/18/17 00:07 Consult to Pulmonology [CONS] Routine Consulting Provider: [facility] [place] Reason for Consult: COPD Time Notified: 00:08 Call Completed: No Discharging clinician: Krystal Tavarez Anticipated date of discharge: 02/21/17 - Patient Status Disposition: Home, Self-Care Condition: Good Functional capacity at discharge: independent ambulation Overall status at discharge: patient is progressing back to baseline - Discharge Instructions Instructions: Acute Respiratory Distress Syndrome (DC), Chronic Obstructive Pulmonary Disease (DC) Follow Up With: Aleksey Huggins DO [Primary Care Provider] - 02/27/17 3:00 pm () Additional Instructions: Follow up with Pulmonology as scheduled - Diet and Activity Activity: increase activity as tolerated, wear oxygen at all times Diet: diabetic diet, low fat, low cholesterol, low salt diet Hospital course: Ms. Kyle is a 56 year old female patient with history of COPD, CHF was admitted with acute on chronic respiratory failure due to acute exacerbation of COPD and CHF. She was treated with Lasix, steroids, O2 supplementation and bronchodilators. She has slowly improved with this treatment regimen and is back on her baseline home oxygen level of 4 L/m. She is feeling much better now and is clinically stable for discharge. She will be discharged on steroid taper and a course of azithromycin. She will follow up with pulmonology after discharge. - Time Spent with Patient Total time spent providing and/or coordinating discharge services: Greater than 30 minutes (32 min) - Constitutional Vitals: Temp Pulse Resp BP Pulse Ox 97.8 F 79 19 135/90 94 02/21/17 10:35 02/21/17 10:35 02/21/17 10:35 02/21/17 10:35 02/21/17 10:35 General appearance: Present: cooperative, A&O X 3, morbidly obese, answers questions appropriately - Respiratory Respiratory exam: Present: decreased breath sounds (decreased air entry bilaterally), prolonged expiratory phase. Absent: accessory muscle use, rales, rhonchi, wheezes - Cardiovascular Cardiovascular exam: Present: RRR, +S1, +S2. Absent: diastolic murmur, gallop, rubs, systolic murmur - GI/Abdominal GI/Abdominal exam: Present: normal bowel sounds, soft, no peritoneal signs. Absent: distended, tenderness - Extremities Exam Extremities exam: Present: warm, radial pulses palpable and symmetrical. Absent : calf tenderness, cyanotic, pedal edema - Neurological Exam Neurological exam: Present: CN II-XII intact, oriented X3, no focal deficits. Absent: facial droop, speech deficit
--- NOTE | 2017-02-21 14:33 | Physician Discharge Referral ---
Home Health/Hosp Referral Info Transfer to: Home Health Provider in Charge Post Discharge: PCP - Diagnosis (1) Acute and chronic respiratory failure Priority: Primary Status: Acute (2) Acute exacerbation of chronic obstructive airways disease Priority: Secondary Status: Acute (3) Congestive heart failure Priority: Secondary Status: Chronic (4) Obesity hypoventilation syndrome Priority: Secondary Status: Chronic (5) Tobacco abuse Priority: Secondary Status: Acute - Respiratory Orders Oxygen / L per min (4) Smoking Cessation: Smoking cessation has been advised. For more information, call the [place] [employer] Quit Line at 7-684-LDGT-NOW. - Diet/Nutrition Diet/Nutrition Orders: Cardiac - Activity Activity Orders: Walker - Services Needed Following services are medically necessary services: Nursing, Physical Therapy, Occupational Therapy - Transfer Medications Prescriptions: Azithromycin [Zithromax] 500 mg PO Q24H #10 tablet predniSONE [PredniSONE] 10 mg PO DAILY 10 Days tablet Home Medications: Aclidinium [place] [Tudorza Pressair] 1 puff IH BID 09/08/15 [History] Albuterol Sulfate [Proair Hfa] 2 puff IH Q4H PRN 09/08/15 [History] Budesonide/Formoterol 160/4.5 [Symbicort 160/4.5] 2 puff IH BIDR 09/08/15 [ History] Simvastatin [Zocor] 40 mg PO HS 09/08/15 [History] Aspirin 325 mg PO DAILY #60 tablet 09/19/15 [Rx] Diltiazem CD (24hr) [Cardizem CD] 360 mg PO DAILY #30 cap.er.24h 09/19/15 [Rx] Metoprolol [Lopressor] 50 mg PO BID #60 tablet 09/19/15 [Rx] Albuterol Neb [Proventil Neb] 2.5 mg IH Q4HR 07/05/16 [History] Oxygen 4 l .ROUTE AD 12/05/16 [History] Ipratropium/Albuterol Neb [Duoneb] 3 ml IH [id number] PRN inh 12/08/16 [Rx] metFORMIN [Glucophage] 500 mg PO BIDWM #60 tablet 01/27/17 [Rx] Furosemide [Lasix] 40 mg PO BID 02/17/17 [History] Azithromycin [Zithromax] 500 mg PO Q24H #10 tablet 02/21/17 [Rx] predniSONE [PredniSONE] 10 mg PO DAILY 10 Days tablet 02/21/17 [Rx] Allergies/Adverse Reactions: 3 Allergy/AdvReac Type Severity Reaction Status Date / Time Penicillins Allergy Rash Verified 09/03/16 22:33 Certification: Further, I certify that my clinical findings support that this patient is homebound (i.e. absences from home require considerable and taxing effort and are for medical reasons or syn[employer] services or infrequently or short duration when for other reasons) because: Homebound Reason: Patient requires assistance of a person or device to safely leave home, Severity of cardiac or pulmonary status limits activity tolerance Attestation: My signature below is to certify that this patient is under my care and that I, or nurse practitioner, or a physician's purchasing administrative assistant working with me, has a face-to -face encounter with this patient.
== END 2017-02-21 14:57 | disposition home or self-care (01) | DRG 133 ==
LOC: 2ANU 15:41 → EMEROO 15:41 → 2ANU 18:11 → SUATTDRO 19:53
PROVIDERS: ADMIT Nurse Practitioner Acute Care; ATTEND Internal Medicine

== ENCOUNTER 2017-03-13 20:35 | Inpatient (IN) ==
[2017-03-13] MEDS ORDERED: methylPREDNISolone 125 MG/2 ML VIAL IVP ONE (20:42)
[2017-03-13] MEDS ORDERED: Ipratropium/Albuterol Neb 3 ML IH ONE (20:42)
[2017-03-13] MEDS ORDERED: Aspirin 81 MG TAB.CHEW PO ONE (20:42)
--- NOTE | 2017-03-13 20:46 | Emergency Department Note ---
Disposition Clinical Impression: COPD exacerbation, CHF exacerbation, Hypercapnic respiratory failure, TYE ( obstructive sleep apnea), Tobacco abuse Disposition: Admitted As Inpatient Condition: Fair Referrals: Aleksey Huggins DO [Primary Care Provider] - Forms: ED Satisfaction Letter Time of Disposition: 22:21 SOB HPI - General Chief Complaint: ED Shortness of Breath/Dyspnea Stated Complaint: ronan Time Seen by Provider: 03/13/17 20:44 Source: EMS Mode of arrival: EMS Limitations: physical limitation (morbid obesity) Nursing Notes Reviewed: Yes Vital Signs Reviewed: Yes - History of Present Illness This is a 56-year-old morbidly obese female presenting with shortness of breath. Patient states she has been getting worse over the last few days. Patient's been on her CPAP all day. Patient is a cigarette smoker with COPD and CHF. Patient does wear 4 L of oxygen at all times. Patient denies any fevers. Patient denies any new coughing. Patient denies any chest pain. Patient does have conversational dyspnea on exam. Patient denies any abdominal pain, vomiting, diarrhea, or urinary symptoms. Pt Subjective Complaint: shortness of breath - Related Data Home Medications Medication Instructions Recorded Confirmed Aclidinium [place] [Tudorza 1 puff IH BID 09/08/15 02/17/17 Pressair] Albuterol Sulfate [Proair Hfa] 2 puff IH Q4H PRN 09/08/15 02/17/17 Budesonide/Formoterol 160/4.5 2 puff IH BIDR 09/08/15 02/17/17 [Symbicort 160/4.5] Simvastatin [Zocor] 40 mg PO HS 09/08/15 02/17/17 Albuterol Neb [Proventil Neb] 2.5 mg IH Q4HR 07/05/16 02/17/17 Oxygen 4 l .ROUTE AD 12/05/16 02/17/17 Furosemide [Lasix] 40 mg PO BID 02/17/17 02/17/17 Previous Rx's Medication Instructions Recorded Aspirin 325 mg PO DAILY #60 tablet 09/19/15 Diltiazem CD (24hr) [Cardizem CD] 360 mg PO DAILY #30 cap.er.24h 09/19/15 Metoprolol [Lopressor] 50 mg PO BID #60 tablet 09/19/15 Ipratropium/Albuterol Neb [Duoneb] 3 ml IH [id number] PRN inh 12/08/16 metFORMIN [Glucophage] 500 mg PO BIDWM #60 tablet 01/27/17 Azithromycin [Zithromax] 500 mg PO Q24H #10 tablet 02/21/17 predniSONE [PredniSONE] 10 mg PO DAILY 10 Days tablet 02/21/17 Allergies Allergy/AdvReac Type Severity Reaction Status Date / Time Penicillins Allergy Rash Verified 09/03/16 22:33 All systems ED: reviewed and negative except as stated. Constitutional: Denies: fever, chills, weakness, weight change Eyes: Denies: eye pain, eye discharge, vision change ENT ED: Denies: ear pain, throat pain, dental pain, hearing loss, epistaxis, congestion, dysphagia Cardiovascular: Reports: dyspnea on exertion. Denies: chest pain, palpitations , edema, syncope Respiratory: Reports: dyspnea, wheezes. Denies: cough, hemoptysis, stridor Gastrointestinal: Denies: abdominal pain, nausea, vomiting, diarrhea, constipation, hematemesis, melena, hematochezia Genitourinary: Denies: dysuria, frequency, hematuria, discharge Musculoskeletal: Denies: back pain, neck pain, arthralgia, myalgia Integumentary: Denies: rash, abrasion, lesions Neurological: Denies: headache, weakness, numbness, paresthesias, confusion, abnormal gait, vertigo Psychiatric: Denies: anxiety, depression, suicidal thoughts, homicidal thoughts , auditory hallucinations, visual hallucinations Endocrine: Denies: fatigue Hematological/Lymphatic: Denies: easy bleeding, easy bruising Allergic/Immunologic: Denies: facial swelling, urticaria Past Medical History - Past Medical History Attestation: Yes The following information was validated with the patient. Source: patient Medical history: Reports: arthritis, asthma, atrial fibrillation, CHF, COPD, diabetes, GERD, hyperlipidemia, hypertension, osteoporosis, valvular heart disease, other Surgical history: Reports: non-contributory, other Psychiatric history: Reports: no psych history, other - Social History Smoking Status: Current every day smoker Smokeless Tobacco Status: No Alcohol use: Reports: rarely Drug use: Reports: none Physical Exam - General Limitations: physical limitation (morbid obesity) General appearance: alert, obese - Head Head exam: atraumatic, normocephalic, normal inspection - Eye Eye exam: Present: normal appearance, PERRL, EOMI - ENT ENT exam: normal exam, normal oropharynx, mucous membranes moist - Expanded ENT Exam External ear exam: Present: normal external inspection Mouth exam: Present: normal external inspection Teeth exam: Present: normal inspection Throat exam: Present: normal inspection - Neck Neck exam: Present: normal inspection, full ROM, trachea midline - Chest Chest inspection: Present: normal inspection, symmetric chest wall rise - Respiratory Respiratory exam: Present: respiratory distress, wheezes, other (rhonchi, conversational dyspnea) - Cardiovascular Cardiovascular exam: Present: normal rhythm, tachycardia, normal heart sounds - Abdominal Exam Abdominal exam: Present: soft, Non-Tender. Absent: tenderness, distention, guarding, rebound, rigidity - Extremities Exam Extremities exam: Present: normal inspection, full ROM, pedal edema. Absent: tenderness - Expanded Upper Extremity Exam Shoulder exam: Present: normal inspection, full ROM Arm exam: Present: normal inspection, full ROM Elbow exam: Present: normal inspection, full ROM Forearm/Wrist exam: Present: normal inspection, full ROM Hand exam: Present: normal inspection, full ROM Vascular exam: Normal: capillary refill, radial pulse - Expanded Lower Extremity Exam Hip/Pelvis exam: Present: normal inspection, full ROM Upper leg exam: Present: normal inspection, full ROM Knee exam: Present: normal inspection, full ROM Lower leg exam: Present: full ROM, swelling Ankle exam: Present: full ROM, swelling Foot/toe exam: Present: normal inspection, full ROM Neurovascular/Tendon exam: Absent: motor deficit, sensory deficit, tendon deficit - Back Exam Back exam: Present: normal inspection, full ROM. Absent: tenderness - Neurological Exam Neurological exam: Present: alert, oriented X3 - Expanded Neurological Exam Patient oriented to: Present: person, place, time Coma Scale Eye Opening: Spontaneous Coma Scale Motor Response: Obeys Commands Coma Scale Verbal Response: Oriented Coma Scale Total: 15 - Psychiatric Psychiatric exam: Present: normal affect, normal mood - Skin Skin exam: Present: warm, intact, normal color, diaphoresis Course - Consultations Consultation #1: I spoke with Dr. Mello white to admit. 22:10. Vital Signs Temperature 97.8 F 03/13/17 20:37 Pulse Rate 113 03/13/17 20:37 Respiratory Rate 38 03/13/17 20:37 Blood Pressure 147/88 03/13/17 20:37 O2 Sat by Pulse Oximetry 80 11/06/17 20:37 Temperature 97.8 F 03/13/17 20:37 Pulse Rate 113 03/13/17 20:37 Respiratory Rate 42 03/13/17 20:57 Blood Pressure 147/88 03/13/17 20:37 O2 Sat by Pulse Oximetry 96 03/13/17 20:57 Oxygen Delivery Oxygen Delivery Non Rebreather Mask Shortness of Breath/Dyspnea - Medical Records Medical records reviewed: Yes I reviewed the patient's medical records. - Lab Data Lab results reviewed: Yes I reviewed the patient's lab results. Result diagrams: 03/13/17 21:04 03/13/17 21:04 Lab Results 03/13/17 03/13/17 03/13/17 Range/Units 20:57 21:04 21:04 WBC 7.4 (4.3-11.1) K/mcL RBC 3.81 L (3.82-4.97) M/mcL Hgb 10.3 L (11.5-15.4) g/dL Hct 35.9 (35.3-44.9) % MCV 94.2 (83.0-100.0) fL MCH 27.0 L (28.0-33.3) pg MCHC 28.7 L (31.6-35.5) g/dL RDW 23.2 H (11.5-14.5) % Plt Count 288 (140-400) K/mcL MPV 9.5 (9.4-12.4) fL Immature Gran % 0.5 (0-4) % Seg Neutrophils % 79.3 % Lymphocytes % 12.5 % Monocytes % 6.3 % Eosinophils % 1.1 % Basophils % 0.3 % Neutrophils # 5.9 (1.6-8.9) K/mcL Lymphocytes # 0.9 (0.6-4.6) K/mcL Monocytes # 0.5 (0.0-1.3) K/mcL Eosinophils # 0.1 (0.0-0.6) K/mcL Basophils # 0.0 (0.0-0.2) K/mcL Nucleated RBCs/100 WBC 0.4 H (0) /100 WBC Platelet Estimate Normal (Normal) Hypochromasia Present A (Not Present) Anisocytosis 3+ A (Not Present) PT (9.4-12.1) Seconds INR APTT (26.0-36.0) Seconds ABG pH 7.23 L (7.32-7.45) pH Units ABG pCO2 90 H* (35-45) mmHg ABG pO2 140 H (85-104) mmHg ABG HCO3 38 H (21-27) mEq/L ABG Total CO2 41 H (20-26) mEq/L ABG O2 Saturation 98 (95-98) % ABG Base Excess 7 H (-2 to 3) mEq/L Sodium 142 (136-145) mEq/L Potassium 3.9 (3.5-4.5) mEq/L Chloride 100 (98-109) mEq/L Carbon Dioxide 33 H (19-29) mEq/L BUN 13 (7-20) mg/dL Creatinine 0.79 (0.57-1.11) mg/dL Est GFR ( Amer) > 60 (> 60) Est GFR (Non-Af Amer) > 60 (> 60) BUN/Creatinine Ratio 16 (6-26) Glucose 177 H (70-99) mg/dL Calculated Osmolality 298 (280-300) Lactic Acid (0.5-2.2) mmol/L Calcium 8.8 (8.6-10.8) mg/dL Total Bilirubin 0.6 (0.2-1.2) mg/dL AST 12 (5-34) Units/L ALT 10 (0-55) Units/L Alkaline Phosphatase 137 H (38-126) Units/L Troponin I (0-0.03) ng/mL B-Natriuretic Peptide (0-100) pg/mL Serum Total Protein 7.3 (6.0-8.3) g/dL Albumin 2.7 L (3.5-5.0) g/dL Globulin 4.6 H (2.4-3.5) g/dL Albumin/Globulin Ratio 0.6 L (1.1-2.2) Person Notif of Ralph Pablo 03/13/17 03/13/17 03/13/17 Range/Units 21:04 21:04 21:04 WBC (4.3-11.1) K/mcL RBC (3.82-4.97) M/mcL Hgb (11.5-15.4) g/dL Hct (35.3-44.9) % MCV (83.0-100.0) fL MCH (28.0-33.3) pg MCHC (31.6-35.5) g/dL RDW (11.5-14.5) % Plt Count (140-400) K/mcL MPV (9.4-12.4) fL Immature Gran % (0-4) % Seg Neutrophils % % Lymphocytes % % Monocytes % % Eosinophils % % Basophils % % Neutrophils # (1.6-8.9) K/mcL Lymphocytes # (0.6-4.6) K/mcL Monocytes # (0.0-1.3) K/mcL Eosinophils # (0.0-0.6) K/mcL Basophils # (0.0-0.2) K/mcL Nucleated RBCs/100 WBC (0) /100 WBC Platelet Estimate (Normal) Hypochromasia (Not Present) Anisocytosis (Not Present) PT (9.4-12.1) Seconds INR APTT (26.0-36.0) Seconds ABG pH (7.32-7.45) pH Units ABG pCO2 (35-45) mmHg ABG pO2 (85-104) mmHg ABG HCO3 (21-27) mEq/L ABG Total CO2 (20-26) mEq/L ABG O2 Saturation (95-98) % ABG Base Excess (-2 to 3) mEq/L Sodium (136-145) mEq/L Potassium (3.5-4.5) mEq/L Chloride (98-109) mEq/L Carbon Dioxide (19-29) mEq/L BUN (7-20) mg/dL Creatinine (0.57-1.11) mg/dL Est GFR ( Amer) (> 60) Est GFR (Non-Af Amer) (> 60) BUN/Creatinine Ratio (6-26) Glucose (70-99) mg/dL Calculated Osmolality (280-300) Lactic Acid 0.8 (0.5-2.2) mmol/L Calcium (8.6-10.8) mg/dL Total Bilirubin (0.2-1.2) mg/dL AST (5-34) Units/L ALT (0-55) Units/L Alkaline Phosphatase (38-126) Units/L Troponin I 0.00 (0-0.03) ng/mL B-Natriuretic Peptide 378 H (0-100) pg/mL Serum Total Protein (6.0-8.3) g/dL Albumin (3.5-5.0) g/dL Globulin (2.4-3.5) g/dL Albumin/Globulin Ratio (1.1-2.2) Person Notif of Crit 03/13/17 Range/Units 21:04 WBC (4.3-11.1) K/mcL RBC (3.82-4.97) M/mcL Hgb (11.5-15.4) g/dL Hct (35.3-44.9) % MCV (83.0-100.0) fL MCH (28.0-33.3) pg MCHC (31.6-35.5) g/dL RDW (11.5-14.5) % Plt Count (140-400) K/mcL MPV (9.4-12.4) fL Immature Gran % (0-4) % Seg Neutrophils % % Lymphocytes % % Monocytes % % Eosinophils % % Basophils % % Neutrophils # (1.6-8.9) K/mcL Lymphocytes # (0.6-4.6) K/mcL Monocytes # (0.0-1.3) K/mcL Eosinophils # (0.0-0.6) K/mcL Basophils # (0.0-0.2) K/mcL Nucleated RBCs/100 WBC (0) /100 WBC Platelet Estimate (Normal) Hypochromasia (Not Present) Anisocytosis (Not Present) PT 15.0 H (9.4-12.1) Seconds INR 1.4 APTT 26.8 (26.0-36.0) Seconds ABG pH (7.32-7.45) pH Units ABG pCO2 (35-45) mmHg ABG pO2 (85-104) mmHg ABG HCO3 (21-27) mEq/L ABG Total CO2 (20-26) mEq/L ABG O2 Saturation (95-98) % ABG Base Excess (-2 to 3) mEq/L Sodium (136-145) mEq/L Potassium (3.5-4.5) mEq/L Chloride (98-109) mEq/L Carbon Dioxide (19-29) mEq/L BUN (7-20) mg/dL Creatinine (0.57-1.11) mg/dL Est GFR ( Amer) (> 60) Est GFR (Non-Af Amer) (> 60) BUN/Creatinine Ratio (6-26) Glucose (70-99) mg/dL Calculated Osmolality (280-300) Lactic Acid (0.5-2.2) mmol/L Calcium (8.6-10.8) mg/dL Total Bilirubin (0.2-1.2) mg/dL AST (5-34) Units/L ALT (0-55) Units/L Alkaline Phosphatase (38-126) Units/L Troponin I (0-0.03) ng/mL B-Natriuretic Peptide (0-100) pg/mL Serum Total Protein (6.0-8.3) g/dL Albumin (3.5-5.0) g/dL Globulin (2.4-3.5) g/dL Albumin/Globulin Ratio (1.1-2.2) Person Notif of Crit - Radiology Data Radiology results reviewed: Yes I reviewed the patient's radiology results. - EKG Data EKG attestation: Yes I reviewed and interpreted this EKG. Rate: Reports: normal Rhythm: Reports: A.Fib [place]/QRS: Reports: normal Interpretation: Reports: nonspecific ST-T wave changes
[2017-03-13 21:03] LABS: ABG Base Excess 7 mEq/L (-2 to 3); ABG HCO3 38 mEq/L (21-27); ABG Oxygen Saturation 98 % (95-98); ABG PCO2 90 mmHg (35-45); ABG PH 7.23 pH Units (7.32-7.45); ABG PO2 140 mmHg (85-104); ABG TCO2 41 mEq/L (20-26)
[2017-03-13 21:12] LABS: Basophils % 0.3 %; Hemoglobin 10.3 g/dL (11.5-15.4); Mean Platelet Volume 9.5 fL (9.4-12.4)
[2017-03-13 21:14] LABS: Eosinophils # 0.1 K/mcL (0.0-0.6); Eosinophils % 1.1 %; Hematocrit 35.9 % (35.3-44.9); Immature Granulocytes % 0.5 % (0-4); Lymphocytes # 0.9 K/mcL (0.6-4.6); Lymphocytes % 12.5 %; Mean Corpuscular HGB Conc 28.7 g/dL (31.6-35.5); Mean Corpuscular Volume 94.2 fL (83.0-100.0); Monocytes # 0.5 K/mcL (0.0-1.3); Monocytes % 6.3 %; Neutrophils # 5.9 K/mcL (1.6-8.9); Nucleated Red Blood Cells 0.4 /100 WBC (0); Platelet Count 288 K/mcL (140-400); Red Blood Count 3.81 M/mcL (3.82-4.97); Red Cell Distribution Width 23.2 % (11.5-14.5); Segmented Neutrophils % 79.3 %
[2017-03-13 21:18] LABS: INR 1.4
[2017-03-13 21:20] LABS: Activated Partial Thrombo Time 26.8 Seconds (26.0-36.0)
[2017-03-13 21:26] LABS: Alanine Aminotransferase 10 Units/L (0-55); Albumin 2.7 g/dL (3.5-5.0); Albumin/Globulin Ratio 0.6 (1.1-2.2); Alkaline Phosphatase 137 Units/L (38-126); Aspartate Amino Transferase 12 Units/L (5-34); BUN/Creatinine Ratio 16 (6-26); Bilirubin,Total 0.6 mg/dL (0.2-1.2); Blood Urea Nitrogen 13 mg/dL (7-20); Calcium 8.8 mg/dL (8.6-10.8); Carbon Dioxide 33 mEq/L (19-29); Chloride 100 mEq/L (98-109); Globulin 4.6 g/dL (2.4-3.5); Glucose 177 mg/dL (70-99); Osmolality,Calculated 298 (280-300); Potassium 3.9 mEq/L (3.5-4.5); Sodium 142 mEq/L (136-145); Total Protein 7.3 g/dL (6.0-8.3); eGFR For African Americans > 60 (> 60); eGFR For Non-African Americans > 60 (> 60)
[2017-03-13 21:30] LABS: Hypochromasia Present (Not Present)
[2017-03-13 21:31] LABS: Anisocytosis 3+ (Not Present); Platelet Estimate Normal (Normal)
[2017-03-13] MEDS ORDERED: Furosemide 40 MG/4 ML VIAL IVP ONE (22:21)
[2017-03-14 00:05] LABS: ABG Base Excess 7 mEq/L (-2 to 3); ABG HCO3 37 mEq/L (21-27); ABG Oxygen Saturation 95 % (95-98); ABG PCO2 80 mmHg (35-45); ABG PH 7.28 pH Units (7.32-7.45); ABG PO2 91 mmHg (85-104); ABG TCO2 40 mEq/L (20-26)
[2017-03-14] MEDS ORDERED: Nitroglycerin 0.4 MG TAB.SUBL SL PRN (00:55)
[2017-03-14] MEDS ORDERED: Acetaminophen 325 MG TABLET PO PRN (00:58)
[2017-03-14] MEDS ORDERED: *HR* Dextrose 50 % in Water (Syg) 50 ML SYRINGE IVP PRN (00:58)
[2017-03-14] MEDS ORDERED: D5% in Water 1,000 ML IVC PRN (00:58)
[2017-03-14] MEDS ORDERED: Ondansetron 4 MG/2 ML VIAL IVP PRN (00:58)
[2017-03-14] MEDS ORDERED: Dextrose Gel 15 GM PO PRN ×2 (00:58)
[2017-03-14] MEDS ORDERED: Naloxone 0.4 MG/ML INJ IVP PRN (00:58)
--- NOTE | 2017-03-14 01:03 | Internal Med History&Physical ---
Date of Encounter: 03/14/17 Time of Encounter: 01:01 Assessment and Plan (1) Acute and chronic respiratory failure Current visit: No Status: Acute Acute on chronic hypoxic hypercapnic respiratory failure secondary to acute diastolic CHF exacerbation/acute pulmonary edema Start Lasix IV 40 mg 3 times a day, strict I's and O's and daily weight Sheila BiPAP, oxygen therapy Omeprazole for GI prophylaxis and sometimes heparin for DVT prophylaxis. The patient will be admitted as inpatient, expected to stay more than 2 minutes. Full code. Time spent on this admission 40 minutes. Qualifiers: Respiratory failure complication: hypoxia and hypercapnia Qualified Code(s) : J96.21 - Acute and chronic respiratory failure with hypoxia; J96.22 - Acute and chronic respiratory failure with hypercapnia; J96.22 - Acute and chronic respiratory failure with hypercapnia; J96.22 - Acute and chronic respiratory failure with hypercapnia (2) Hypoxemic respiratory failure, chronic Current visit: No Status: Acute (3) Hypercapnic respiratory failure Current visit: Yes Status: Acute Qualifiers: Chronicity: acute on chronic Qualified Code(s): J96.22 - Acute and chronic respiratory failure with hypercapnia (4) CHF (congestive heart failure) Current visit: No Status: Acute Qualifiers: Congestive heart failure type: diastolic Congestive heart failure chronicity: acute on chronic Qualified Code(s): I50.33 - Acute on chronic diastolic (congestive) heart failure (5) Pulmonary edema Current visit: No Status: Acute Qualifiers: Chronicity: acute Qualified Code(s): J81.0 - Acute pulmonary edema (6) Atrial fibrillation Current visit: No Status: Chronic Continue metoprolol and diltiazem Qualifiers: Atrial fibrillation type: chronic Qualified Code(s): I48.2 - Chronic atrial fibrillation (7) Tobacco use disorder Current visit: No Status: Chronic Smoking cessation counseling given for 5 min , nicotine patch (8) COPD (chronic obstructive pulmonary disease) Current visit: No Status: Acute acute COPD exacerbation due to possible acute bacterial bronchitis Continue Levaquin and Solu-Medrol Qualifiers: COPD type: unspecified COPD Qualified Code(s): J44.9 - Chronic obstructive pulmonary disease, unspecified (9) Bronchitis Current visit: No Status: Acute (10) Obesity hypoventilation syndrome Current visit: No Status: Chronic Internal Medicine - H&P: HPI Chief complaint: Shortness of breath Admitted From: Emergency Dept History of present illness: Ms. Kyle is a 56 year old female with a past medical history of diastolic CHF , COPD oxygen dependent using 4 L at home, tobacco use, diabetes type 2 not insulin-dependent and atrial fibrillation not on anticoagulation who was recently discharged from this hospital on February 21 where she was treated for COPD exacerbation. The patient mentioned that for the past few days she has been bringing up some yellowish phlegm, becoming more short of breath. Chest x- ray shows vascular congestion and acute pulmonary edema. A pH initially on the ABG showed 7.23 which improved after 7.28 after starting BiPAP, also her PCO2 was 90 and improved down to 80, PO2 was 91. BNP is 378 and she has severe lateral lower extremity edema. Her heart rate was 113, blood pressure 147/88. Is now on the floor on a BiPAP feeling slightly better but still very short of breath. Has been feeling chills but denies any fevers. Past Med Surg Social Fam HX - Past Medical History Medical history: arthritis, asthma, atrial fibrillation (Not on anticoagulation) , CHF (Diastolic), COPD (Oxygen dependent using 4 L continuously), diabetes ( Not insulin-dependent), GERD, hyperlipidemia, hypertension, osteoporosis, valvular heart disease, other (Obstructive sleep apnea using CPAP at home, tobacco use, asthma, GERD, prior infestation with bedbugs) Psychiatric history: no psych history, other - Past Surgical History Surgical History: non-contributory, other - Social History Smoking Status: Current every day smoker Packs per day: 3 cigarettes a day Smokeless Tobacco Status: No Alcohol use: rarely Drug use: none - Family History Mother Living Status: Hx Family Cardiac Disorders: Yes Hx Family Endocrine Disorder: Yes (DM) Father Living Status: Hx Family Respiratory Disorders: Yes (Asthma, COPD, Emphysema) - Additional Family History Additional family history: Mother with diabetes and father with emphysema/asthma Internal Medicine - H&P: Meds Aclidinium [place] [Tudorza Pressair] 1 puff IH BID 09/08/15 [History] Albuterol Sulfate [Proair Hfa] 2 puff IH Q4H PRN 09/08/15 [History] Budesonide/Formoterol 160/4.5 [Symbicort 160/4.5] 2 puff IH BIDR 09/08/15 [ History] Simvastatin [Zocor] 40 mg PO HS 09/08/15 [History] Aspirin 325 mg PO DAILY #60 tablet 09/19/15 [Rx] Diltiazem CD (24hr) [Cardizem CD] 360 mg PO DAILY #30 cap.er.24h 09/19/15 [Rx] Metoprolol [Lopressor] 50 mg PO BID #60 tablet 09/19/15 [Rx] Albuterol Neb [Proventil Neb] 2.5 mg IH Q4HR 07/05/16 [History] Oxygen 4 l .ROUTE AD 12/05/16 [History] Ipratropium/Albuterol Neb [Duoneb] 3 ml IH [id number] PRN inh 12/08/16 [Rx] metFORMIN [Glucophage] 500 mg PO BIDWM #60 tablet 01/27/17 [Rx] Furosemide [Lasix] 40 mg PO BID 02/17/17 [History] 3 Allergy/AdvReac Type Severity Reaction Status Date / Time Penicillins Allergy Rash Verified 09/03/16 22:33 All Systems PM: A 10-system review of systems was performed and is negative for pertinent findings except as documented above in the HPI. Review of systems: No chest pain, other systems out of the 10 reviewed were negative - Constitutional Vitals: Temp Pulse Resp BP Pulse Ox 98.3 F 92 18 108/79 97 03/14/17 00:42 03/14/17 00:42 03/14/17 00:42 03/14/17 00:42 03/14/17 00:42 General appearance: Present: A&O X 3 - Head Head exam: Present: atraumatic, normocephalic - Eye Eye exam: Present: PERRL, conjuntiva pink, sclera anicteric Pupils: Present: PERRL - Neck Neck exam general surgery: Present: supple, trachea midline. Absent: lymphadenopathy - Respiratory Respiratory exam: Present: CTAB, rales (Diffuse crackles, mild diffuse wheezing) . Absent: accessory muscle use, rhonchi, wheezes - Cardiovascular Cardiovascular exam: Present: RRR, +S1, +S2. Absent: diastolic murmur, gallop, rubs, systolic murmur - GI/Abdominal GI/Abdominal exam: Present: normal bowel sounds, soft, no peritoneal signs. Absent: distended, tenderness - Extremities Exam Extremities exam: Present: pedal edema (Severe +3 pitting edema both lower extremities/lymphedema, morbid obesity), warm, radial pulses palpable and symmetrical. Absent: calf tenderness, cyanotic - Neurological Exam Neurological exam: Present: CN II-XII intact, oriented X3, no focal deficits. Absent: pronater drift, facial droop, speech deficit - Skin Skin exam: Present: dry, intact Internal Med - H&P Results - Labs CBC & Chem 7: 03/13/17 21:04 03/13/17 21:04 - ABG Interpretation ABG results: 03/13/17 23:55 ABG pH 7.28 L ABG pCO2 80 H* ABG pO2 91 D ABG HCO3 37 H ABG Total CO2 40 H ABG O2 Saturation 95 ABG Base Excess 7 H
[2017-03-14] MEDS: Nicotine 14 MG PATCH.TD24 TD SCH ×2 (01:37→08:41)
[2017-03-14] MEDS: *HR* Heparin 5,000 UNIT/ML VIAL SQ SCH ×4 (01:37→23:20)
[2017-03-14] MEDS: Levofloxacin 750 MG/150 ML 750 MG/150 ML BAG IVPB SCH (01:38)
[2017-03-14 04:31] LABS: BUN/Creatinine Ratio 19 (6-26); Blood Urea Nitrogen 14 mg/dL (7-20); Calcium 8.7 mg/dL (8.6-10.8); Carbon Dioxide 32 mEq/L (19-29); Chloride 101 mEq/L (98-109); Glucose 205 mg/dL (70-99); Osmolality,Calculated 298 (280-300); Potassium 4.5 mEq/L (3.5-4.5); eGFR For African Americans > 60 (> 60); eGFR For Non-African Americans > 60 (> 60)
[2017-03-14] MEDS: Ipratropium/Albuterol Neb 3 ML IH SCH ×4 (04:32→21:50)
[2017-03-14 04:35] LABS: Sodium 141 mEq/L (136-145)
[2017-03-14] MEDS ORDERED: MethylPREDNISolone 40 MG/ML VIAL IVP SCH (08:00)
[2017-03-14] MEDS: Diltiazem CD (24hr) 180 MG CAPSULE PO SCH (08:38)
[2017-03-14] MEDS: Aspirin 325 MG TABLET PO SCH (08:38)
[2017-03-14] MEDS: Insulin LISPRO 300 UNITS/3 ML VIAL SQ SCH ×4 (08:42→21:46)
[2017-03-14] MEDS: Furosemide 40 MG/4 ML VIAL IVP SCH ×3 (08:57→16:44)
[2017-03-14] MEDS: methylPREDNISolone 125 MG/2 ML VIAL IVP SCH ×2 (16:45→23:21)
[2017-03-14] MEDS: Insulin DETEMIR 100 UNIT/ML X5UNITS SQ SCH ×2 (16:45→21:45)
--- NOTE | 2017-03-14 16:58 | Internal Med Progress Note ---
<Ulises Valera - Last Filed: 03/14/17 17:18> Date of Encounter: 03/14/17 Time of Encounter: 09:45 - Assessment and plan (1) Acute and chronic respiratory failure with hypercapnia Current Visit: No Status: Acute Assessment and plan: O2 qualification, patient desaturates off of bipap, continue bipap Continue Lasix 40mg TID, strict I and O's (2) CHF (congestive heart failure) Current Visit: No Status: Acute Assessment and plan: Continue Lasix, strict I and O's Qualifiers: Congestive heart failure type: diastolic Congestive heart failure chronicity: acute on chronic Qualified Code(s): I50.33 - Acute on chronic diastolic (congestive) heart failure (3) COPD (chronic obstructive pulmonary disease) Current Visit: No Status: Acute Assessment and plan: Duoneb, steroid, bipap, lasix. Qualifiers: COPD type: unspecified COPD Qualified Code(s): J44.9 - Chronic obstructive pulmonary disease, unspecified (4) Hypoxemic respiratory failure, chronic Current Visit: No Status: Acute Assessment and plan: as above pt encouraged today as well as in past hospitalizations to quit smoking ( providing medication/counseling), eat healthier, go to her appointments (5) Pulmonary edema Current Visit: No Status: Acute Assessment and plan: Continue Lasix On Levoquin, qualifies due to need for bipap, productive cough Qualifiers: Chronicity: acute Qualified Code(s): J81.0 - Acute pulmonary edema (6) Atrial fibrillation Current Visit: No Status: Chronic Qualifiers: Atrial fibrillation type: chronic Qualified Code(s): I48.2 - Chronic atrial fibrillation (7) Tobacco abuse Current Visit: Yes Status: Chronic Assessment and plan: Smokes 1/4 ppd On nicotine patch, cravings are mild - Subjective Interval history: Ms. Kyle admitted for acute on chronic respiratory failure secondary to CHF exacerbation, presented to ER yesterday for shortness of breath and productive cough. Dependent on 4L home O2 and 5L CPAP, patient is not yet tolerating bipap weaning. Denies dizziness, chest pain, shortness of breath on bipap, improved cough. - Constitutional Vitals: Temp Pulse Resp BP Pulse Ox 98.2 F 88 27 101/72 97 03/14/17 16:47 03/14/17 16:47 03/14/17 16:47 03/14/17 16:47 03/14/17 16:47 General appearance: Present: A&O X 3, no acute distress - Neck Neck exam general surgery: Present: full ROM - Respiratory Respiratory exam: Present: decreased breath sounds. Absent: rhonchi - Cardiovascular Cardiovascular exam: Present: irregular rhythm, +S1, +S2 - GI/Abdominal GI/Abdominal exam: Present: no peritoneal signs. Absent: tenderness - Skin Skin exam: Present: excoriation (well healing, bilateral forearms) Internal Medicine: Result - Labs CBC & Chem 7: 03/13/17 21:04 03/14/17 03:55 Labs: BMP 03/14/17 03:55 Sodium 141 Potassium 4.5 Chloride 101 Carbon Dioxide 32 H BUN 14 Creatinine 0.74 Glucose 205 H Calcium 8.7 - ABG Interpretation ABG results: ABG ABG pH 7.28 pH Units (7.32-7.45) L 03/13/17 23:55 ABG pCO2 80 mmHg (35-45) H* 03/13/17 23:55 ABG pO2 91 mmHg (85-104) D 03/13/17 23:55 ABG O2 Saturation 95 % (95-98) 03/13/17 23:55 PT/INR, D-dimer PT 15.0 Seconds (9.4-12.1) H 03/13/17 21:04 Consult Discharge Plan - Plan Referrals: Aleksey Huggins DO [Primary Care Provider] - (SENT WEB REQUEST ON 03-14-17 @ 2950) <Al Garcia - Last Filed: 03/14/17 20:32> Date of Encounter: 03/14/17 - Constitutional Vitals: Temp Pulse Resp BP Pulse Ox 98.2 F 89 25 93/69 96 03/14/17 19:52 03/14/17 19:52 03/14/17 19:52 03/14/17 19:52 03/14/17 19:52 Internal Medicine: Result - Labs CBC & Chem 7: 03/13/17 21:04 03/14/17 03:55 Labs: BMP 03/14/17 03:55 Sodium 141 Potassium 4.5 Chloride 101 Carbon Dioxide 32 H BUN 14 Creatinine 0.74 Glucose 205 H Calcium 8.7 - ABG Interpretation ABG results: ABG ABG pH 7.28 pH Units (7.32-7.45) L 03/13/17 23:55 ABG pCO2 80 mmHg (35-45) H* 03/13/17 23:55 ABG pO2 91 mmHg (85-104) D 03/13/17 23:55 ABG O2 Saturation 95 % (95-98) 03/13/17 23:55 PT/INR, D-dimer PT 15.0 Seconds (9.4-12.1) H 03/13/17 21:04 - Attending Attestation I examined this patient and my medical decision-making was reviewed with the Resident Physician, Dr. Ulises Valera. I agree with the documented findings, disposition and treatment plan as described except to the extent set forth below. I have independently obtained history and examined the patient and my findings are summarized below: On exam she is in no acute distress. Appears to be short of breath and dyspnea while talking. Heart tones are regular. Lungs auscultation reveals bilateral expiratory wheezes.. There is lower extremity pitting edema. Plan: IV steroids, IV Lasix. Levaquin for bronchitis. Per chart review she was evaluated by cardiology and deemed to be a poor candidate for anticoagulation for A. fib due to noncompliance and questionable alcohol dependence. At that time she was started on full dose aspirin. We will continue this. For morbid obesity with BMI of 66 we will recommend outpatient follow-up with lifestyle modifications and weight loss regimen.
[2017-03-14] MEDS: Albuterol 2.5 MG/3 ML NEBULIZER IH PRN (18:37)
[2017-03-14] MEDS: Melatonin 3 MG TABLET PO PRN (23:20)
[2017-03-15] MEDS: Levofloxacin 750 MG/150 ML 750 MG/150 ML BAG IVPB SCH (00:29)
[2017-03-15] MEDS: Ipratropium/Albuterol Neb 3 ML IH SCH ×4 (03:33→20:46)
[2017-03-15 05:05] LABS: BUN/Creatinine Ratio 32 (6-26); Calcium 8.9 mg/dL (8.6-10.8); Carbon Dioxide 32 mEq/L (19-29); Chloride 99 mEq/L (98-109); Glucose 219 mg/dL (70-99); Osmolality,Calculated 299 (280-300); Potassium 4.2 mEq/L (3.5-4.5); Sodium 139 mEq/L (136-145); eGFR For African Americans > 60 (> 60); eGFR For Non-African Americans > 60 (> 60)
[2017-03-15 05:15] LABS: Blood Urea Nitrogen 25 mg/dL (7-20)
[2017-03-15] MEDS: methylPREDNISolone 125 MG/2 ML VIAL IVP SCH ×4 (06:26→22:59)
[2017-03-15] MEDS: Albuterol 2.5 MG/3 ML NEBULIZER IH PRN (07:50)
[2017-03-15] MEDS: Aspirin 325 MG TABLET PO SCH (09:28)
[2017-03-15] MEDS: *HR* Heparin 5,000 UNIT/ML VIAL SQ SCH ×3 (09:29→22:59)
[2017-03-15] MEDS: Nicotine 14 MG PATCH.TD24 TD SCH (09:29)
[2017-03-15] MEDS: Insulin DETEMIR 100 UNIT/ML X5UNITS SQ SCH ×2 (09:29→20:37)
[2017-03-15] MEDS: Furosemide 40 MG/4 ML VIAL IVP SCH ×3 (09:30→18:35)
[2017-03-15] MEDS: Diltiazem CD (24hr) 180 MG CAPSULE PO SCH (09:30)
[2017-03-15] MEDS: Insulin LISPRO 300 UNITS/3 ML VIAL SQ SCH ×4 (09:32→22:05)
--- NOTE | 2017-03-15 11:21 | Internal Med Progress Note ---
<Ulises Valera - Last Filed: 03/15/17 11:42> Date of Encounter: 03/15/17 Time of Encounter: 09:45 - Assessment and plan (1) Acute and chronic respiratory failure with hypercapnia Current Visit: No Status: Acute Assessment and plan: patient desaturates off of bipap, continue bipap Continue Lasix 40mg TID, strict I and O's, steroid, duoneb (2) CHF (congestive heart failure) Current Visit: No Status: Acute Assessment and plan: Continue Lasix, strict I and O's Qualifiers: Congestive heart failure type: diastolic Congestive heart failure chronicity: acute on chronic Qualified Code(s): I50.33 - Acute on chronic diastolic (congestive) heart failure (3) COPD (chronic obstructive pulmonary disease) Current Visit: No Status: Acute Assessment and plan: Continue duoneb, steroid, bipap, lasix. Qualifiers: COPD type: unspecified COPD Qualified Code(s): J44.9 - Chronic obstructive pulmonary disease, unspecified (4) Hypoxemic respiratory failure, chronic Current Visit: No Status: Acute Assessment and plan: Please see above (5) Pulmonary edema Current Visit: No Status: Acute Assessment and plan: Continue Lasix, likely CHF Qualifiers: Chronicity: acute Qualified Code(s): J81.0 - Acute pulmonary edema (6) Atrial fibrillation Current Visit: No Status: Chronic Assessment and plan: Paroxysmal afib, not currently symptomatic. On ASA due to Cardiology assessment in prior admission for likely inability to comply to coumadin clinic schedule. Consulting technical services manager for Home Health update. Qualifiers: Atrial fibrillation type: chronic Qualified Code(s): I48.2 - Chronic atrial fibrillation (7) Tobacco abuse Current Visit: Yes Status: Chronic Assessment and plan: Smokes 1/4 ppd On nicotine patch, cravings are mild - Subjective Interval history: Ms. Kyle admitted for acute on chronic respiratory failure secondary to CHF exacerbation, presented to ER yesterday for shortness of breath and productive cough. Dependent on 4L home O2 and 5L CPAP. Patient desaturates to 87 on 4L NC. Bipap saturation 97. Continues to deny dizziness, chest pain, shortness of breath on bipap. Improved cough. - Constitutional Vitals: Temp Pulse Resp BP Pulse Ox 97.5 F L 76 22 106/74 89 03/15/17 07:25 03/15/17 09:20 03/15/17 10:39 03/15/17 07:25 03/15/17 10:39 General appearance: Present: A&O X 3, no acute distress Internal Medicine: Result - Labs CBC & Chem 7: 03/13/17 21:04 03/15/17 04:25 Labs: BMP 03/15/17 04:25 Sodium 139 Potassium 4.2 Chloride 99 Carbon Dioxide 32 H BUN 25 H D Creatinine 0.78 Glucose 219 H Calcium 8.9 - ABG Interpretation ABG results: ABG ABG pH 7.28 pH Units (7.32-7.45) L 03/13/17 23:55 ABG pCO2 80 mmHg (35-45) H* 03/13/17 23:55 ABG pO2 91 mmHg (85-104) D 03/13/17 23:55 ABG O2 Saturation 95 % (95-98) 03/13/17 23:55 PT/INR, D-dimer PT 15.0 Seconds (9.4-12.1) H 03/13/17 21:04 Consult Discharge Plan - Plan Referrals: Avinash Quintanilla DO [Resident] - 03/21/17 10:20 am <Al Garcia - Last Filed: 03/15/17 18:13> Date of Encounter: 03/15/17 - Constitutional Vitals: Temp Pulse Resp BP Pulse Ox 97.9 F 81 27 110/76 94 03/15/17 16:16 03/15/17 16:34 03/15/17 16:34 03/15/17 16:34 03/15/17 16:34 Internal Medicine: Result - Labs CBC & Chem 7: 03/13/17 21:04 03/15/17 04:25 Labs: BMP 03/15/17 04:25 Sodium 139 Potassium 4.2 Chloride 99 Carbon Dioxide 32 H BUN 25 H D Creatinine 0.78 Glucose 219 H Calcium 8.9 - ABG Interpretation ABG results: ABG ABG pH 7.28 pH Units (7.32-7.45) L 03/13/17 23:55 ABG pCO2 80 mmHg (35-45) H* 03/13/17 23:55 ABG pO2 91 mmHg (85-104) D 03/13/17 23:55 ABG O2 Saturation 95 % (95-98) 03/13/17 23:55 PT/INR, D-dimer PT 15.0 Seconds (9.4-12.1) H 03/13/17 21:04 - Attending Attestation I examined this patient and my medical decision-making was reviewed with the Resident Physician, Dr. Ulises Valera. I agree with the documented findings, disposition and treatment plan as described except to the extent set forth below. I have independently obtained history and examined the patient and my findings are summarized below: She has a suboptimal response to IV Lasix 40 mg. Marginal negative fluid balance over the last 24 hours. Slightly symptomatically improved. I will increase Lasix to 60 mg IV 3 times a day.
--- NOTE | 2017-03-15 19:33 | Electrocardiograph Report ---
[address] [address] Test Date: 2017-03-13 Pat Name: Shanda Kyle Department: 102 Room: 2N08 Gender: F Chief Green Officer: Ekp : 1960 Requested By: Farideh Hernandez Order Number: [id number] Reading MD: Travis Pacheco MD Measurements Intervals [place] Rate: 90 P: UT: 0 QRS: 34 QRSD: 96 T: 46 QT: 361 QTc: 409 Interpretive Statements ATRIAL FIBRILLATION LOW QRS VOLTAGE Electronically Signed On 03-15-2017 19:32:20 EST by Travis Pacheco MD
[2017-03-15] MEDS: Melatonin 3 MG TABLET PO PRN (22:59)
[2017-03-16] MEDS: Levofloxacin 750 MG/150 ML 750 MG/150 ML BAG IVPB SCH (00:59)
[2017-03-16] MEDS: Albuterol 2.5 MG/3 ML NEBULIZER IH PRN ×2 (01:28→12:54)
[2017-03-16] MEDS: Ipratropium/Albuterol Neb 3 ML IH SCH ×4 (04:36→22:41)
[2017-03-16 04:43] LABS: Hemoglobin 9.3 g/dL (11.5-15.4); Mean Platelet Volume 9.8 fL (9.4-12.4); Segmented Neutrophils % 90.1 %
[2017-03-16 04:44] LABS: Basophils % 0.1 %; Hematocrit 32.7 % (35.3-44.9); Immature Granulocytes % 0.3 % (0-4); Lymphocytes # 0.8 K/mcL (0.6-4.6); Lymphocytes % 6.7 %; Mean Corpuscular HGB Conc 28.4 g/dL (31.6-35.5); Mean Corpuscular Hemoglobin 26.8 pg (28.0-33.3); Mean Corpuscular Volume 94.2 fL (83.0-100.0); Monocytes # 0.3 K/mcL (0.0-1.3); Monocytes % 2.8 %; Nucleated Red Blood Cells 0.2 /100 WBC (0); Platelet Count 287 K/mcL (140-400); Red Blood Count 3.47 M/mcL (3.82-4.97); Red Cell Distribution Width 22.3 % (11.5-14.5)
[2017-03-16 04:49] LABS: Neutrophils # 10.5 K/mcL (1.6-8.9)
[2017-03-16 05:02] LABS: BUN/Creatinine Ratio 41 (6-26); Blood Urea Nitrogen 33 mg/dL (7-20); Calcium 8.9 mg/dL (8.6-10.8); Carbon Dioxide 33 mEq/L (19-29); Chloride 101 mEq/L (98-109); Glucose 226 mg/dL (70-99); Osmolality,Calculated 310 (280-300); Sodium 143 mEq/L (136-145); eGFR For African Americans > 60 (> 60); eGFR For Non-African Americans > 60 (> 60)
[2017-03-16 05:10] LABS: Potassium 4.5 mEq/L (3.5-4.5)
[2017-03-16 05:26] LABS: Anisocytosis 2+ (Not Present); Hypochromasia Present (Not Present); Platelet Estimate Normal (Normal); Toxic Vacuolation Present (Not Present)
[2017-03-16] MEDS: methylPREDNISolone 125 MG/2 ML VIAL IVP SCH ×3 (06:24→16:55)
[2017-03-16] MEDS: Aspirin 325 MG TABLET PO SCH (07:54)
[2017-03-16] MEDS: Diltiazem CD (24hr) 180 MG CAPSULE PO SCH (07:54)
[2017-03-16] MEDS: *HR* Heparin 5,000 UNIT/ML VIAL SQ SCH ×2 (07:55→16:55)
[2017-03-16] MEDS: Nicotine 14 MG PATCH.TD24 TD SCH (07:55)
[2017-03-16] MEDS: Furosemide 40 MG/4 ML VIAL IVP SCH ×3 (07:55→16:56)
[2017-03-16] MEDS: Insulin LISPRO 300 UNITS/3 ML VIAL SQ SCH ×4 (08:01→21:05)
[2017-03-16] MEDS: Insulin DETEMIR 100 UNIT/ML X5UNITS SQ SCH ×2 (10:20→21:04)
[2017-03-16] MEDS: Budesonide/Formoterol 160/4.5 MDI IH SCH ×2 (15:01→22:41)
--- NOTE | 2017-03-16 15:34 | Internal Med Progress Note ---
<Ulises Valera - Last Filed: 03/16/17 15:48> Date of Encounter: 03/16/17 Time of Encounter: 08:30 - Assessment and plan (1) Acute and chronic respiratory failure with hypercapnia Current Visit: No Status: Acute Assessment and plan: patient saturates at average of 88 on 6L nasal cannula, continue bipap Increase Lasix 60mg TID, strict I and O's, steroid, duoneb Symbicort 160 (2) CHF (congestive heart failure) Current Visit: No Status: Acute Assessment and plan: Continue Lasix, strict I and O's Qualifiers: Congestive heart failure type: diastolic Congestive heart failure chronicity: acute on chronic Qualified Code(s): I50.33 - Acute on chronic diastolic (congestive) heart failure (3) COPD (chronic obstructive pulmonary disease) Current Visit: No Status: Acute Assessment and plan: Continue duoneb, steroid, bipap (6L nasal cannula pt saturation at 88%), lasix ( increased). Qualifiers: COPD type: unspecified COPD Qualified Code(s): J44.9 - Chronic obstructive pulmonary disease, unspecified (4) Hypoxemic respiratory failure, chronic Current Visit: No Status: Acute Assessment and plan: Please see above (5) Pulmonary edema Current Visit: No Status: Acute Assessment and plan: Continue Lasix, likely CHF Qualifiers: Chronicity: acute Qualified Code(s): J81.0 - Acute pulmonary edema (6) Atrial fibrillation Current Visit: No Status: Chronic Assessment and plan: Paroxysmal afib, not currently symptomatic. On ASA due to Cardiology assessment in prior admission for likely inability to comply to coumadin clinic schedule. Consulting hosted services analyst for Home Health update. Qualifiers: Atrial fibrillation type: chronic Qualified Code(s): I48.2 - Chronic atrial fibrillation (7) Tobacco abuse Current Visit: Yes Status: Chronic - Subjective Interval history: Ms. Kyle admitted for acute on chronic respiratory failure secondary to CHF exacerbation, presented to ER yesterday for shortness of breath and productive cough. Dependent on 4L home O2 and 5L CPAP. Bipap saturation 97, 6L nasal cannula saturation 88%. Continues to deny dizziness, chest pain, shortness of breath on bipap. Amanuel get bath tonight. - Constitutional Vitals: Temp Pulse Resp BP Pulse Ox 97.3 F L 88 20 122/80 94 03/16/17 11:32 03/16/17 12:01 03/16/17 12:54 03/16/17 12:01 03/16/17 12:54 General appearance: Present: A&O X 3, no acute distress - Head Head exam: Present: atraumatic - Neck Neck exam general surgery: Present: full ROM - Respiratory Respiratory exam: Present: decreased breath sounds. Absent: respiratory distress - Cardiovascular Cardiovascular exam: Present: RRR, +S1, +S2 Internal Medicine: Result - Labs CBC & Chem 7: 03/16/17 04:38 03/16/17 04:38 Labs: Short CBC 03/16/17 Range/Units 04:38 WBC 11.6 H D (4.3-11.1) K/mcL Hgb 9.3 L (11.5-15.4) g/dL Hct 32.7 L (35.3-44.9) % Plt Count 287 (140-400) K/mcL Neutrophils # 10.5 H (1.6-8.9) K/mcL BMP 03/16/17 04:38 Sodium 143 Potassium 4.5 Chloride 101 Carbon Dioxide 33 H BUN 33 H Creatinine 0.81 Glucose 226 H Calcium 8.9 - ABG Interpretation ABG results: ABG ABG pH 7.28 pH Units (7.32-7.45) L 03/13/17 23:55 ABG pCO2 80 mmHg (35-45) H* 03/13/17 23:55 ABG pO2 91 mmHg (85-104) D 03/13/17 23:55 ABG O2 Saturation 95 % (95-98) 03/13/17 23:55 PT/INR, D-dimer PT 15.0 Seconds (9.4-12.1) H 03/13/17 21:04 Consult Discharge Plan - Plan Referrals: Avinash Quintanilla DO [Resident] - 03/21/17 10:20 am <Al Garcia - Last Filed: 03/16/17 17:21> Date of Encounter: 03/16/17 - Constitutional Vitals: Temp Pulse Resp BP Pulse Ox 97.5 F L 100 27 140/94 94 03/16/17 16:38 03/16/17 16:38 03/16/17 16:38 03/16/17 16:38 03/16/17 16:38 Internal Medicine: Result - Labs CBC & Chem 7: 03/16/17 04:38 03/16/17 04:38 Labs: Short CBC 03/16/17 Range/Units 04:38 WBC 11.6 H D (4.3-11.1) K/mcL Hgb 9.3 L (11.5-15.4) g/dL Hct 32.7 L (35.3-44.9) % Plt Count 287 (140-400) K/mcL Neutrophils # 10.5 H (1.6-8.9) K/mcL BMP 03/16/17 04:38 Sodium 143 Potassium 4.5 Chloride 101 Carbon Dioxide 33 H BUN 33 H Creatinine 0.81 Glucose 226 H Calcium 8.9 - ABG Interpretation ABG results: ABG ABG pH 7.28 pH Units (7.32-7.45) L 03/13/17 23:55 ABG pCO2 80 mmHg (35-45) H* 03/13/17 23:55 ABG pO2 91 mmHg (85-104) D 03/13/17 23:55 ABG O2 Saturation 95 % (95-98) 03/13/17 23:55 PT/INR, D-dimer PT 15.0 Seconds (9.4-12.1) H 03/13/17 21:04 - Attending Attestation I conducted a face to face diagnostic evaluation of this patient and my medical decision-making was reviewed with the Resident Physician, Dr. Ulises Valera. I agree with the documented findings, disposition and treatment plan as described except to the extent set forth below: Patient reports slightly improved shortness of breath. She still requires BiPAP during the day. Her lung sounds are clear with scattered wheezes. Plan: Continue with IV steroids, BiPAP and inhaled bronchodilators. IV Lasix 60 mg 3 times a day.
[2017-03-17] MEDS: Levofloxacin 750 MG/150 ML 750 MG/150 ML BAG IVPB SCH ×2 (00:03→23:23)
[2017-03-17] MEDS: *HR* Heparin 5,000 UNIT/ML VIAL SQ SCH ×4 (00:04→23:23)
[2017-03-17] MEDS: Nystatin POWDER 30 GM BOTTLE TP SCH ×3 (00:04→23:24)
[2017-03-17] MEDS: Melatonin 3 MG TABLET PO PRN ×2 (00:04→20:34)
[2017-03-17] MEDS: methylPREDNISolone 125 MG/2 ML VIAL IVP SCH ×5 (00:04→23:22)
[2017-03-17] MEDS: Ipratropium/Albuterol Neb 3 ML IH SCH ×4 (03:47→21:37)
[2017-03-17 06:13] LABS: Basophils % 0.1 %; Nucleated Red Blood Cells 0.2 /100 WBC (0)
[2017-03-17 06:15] LABS: Hematocrit 30.7 % (35.3-44.9); Hemoglobin 8.8 g/dL (11.5-15.4); Immature Granulocytes % 0.4 % (0-4); Lymphocytes # 0.7 K/mcL (0.6-4.6); Lymphocytes % 6.9 %; Mean Corpuscular HGB Conc 28.7 g/dL (31.6-35.5); Mean Corpuscular Hemoglobin 27.4 pg (28.0-33.3); Mean Corpuscular Volume 95.6 fL (83.0-100.0); Mean Platelet Volume 9.5 fL (9.4-12.4); Monocytes # 0.3 K/mcL (0.0-1.3); Monocytes % 2.7 %; Neutrophils # 8.9 K/mcL (1.6-8.9); Platelet Count 265 K/mcL (140-400); Red Blood Count 3.21 M/mcL (3.82-4.97); Red Cell Distribution Width 21.8 % (11.5-14.5); Segmented Neutrophils % 89.9 %
[2017-03-17 06:26] LABS: BUN/Creatinine Ratio 48 (6-26); Blood Urea Nitrogen 37 mg/dL (7-20); Calcium 8.9 mg/dL (8.6-10.8); Carbon Dioxide 37 mEq/L (19-29); Chloride 100 mEq/L (98-109); Glucose 197 mg/dL (70-99); Osmolality,Calculated 312 (280-300); Potassium 4.4 mEq/L (3.5-4.5); Sodium 144 mEq/L (136-145); eGFR For African Americans > 60 (> 60); eGFR For Non-African Americans > 60 (> 60)
[2017-03-17 06:39] LABS: Anisocytosis 1+ (Not Present); Basophilic Stippling 1+ (Not Present); Hypochromasia Present (Not Present); Macrocytosis Present (Not Present); Platelet Estimate Normal (Normal); Polychromasia 1+ (Not Present)
[2017-03-17] MEDS: Furosemide 40 MG/4 ML VIAL IVP SCH ×3 (08:32→16:58)
[2017-03-17] MEDS: Nicotine 14 MG PATCH.TD24 TD SCH (08:32)
[2017-03-17] MEDS: Diltiazem CD (24hr) 180 MG CAPSULE PO SCH (08:32)
[2017-03-17] MEDS: Aspirin 325 MG TABLET PO SCH (08:32)
[2017-03-17] MEDS: Insulin DETEMIR 100 UNIT/ML X5UNITS SQ SCH ×2 (08:36→20:34)
[2017-03-17] MEDS: Insulin LISPRO 300 UNITS/3 ML VIAL SQ SCH ×4 (08:37→20:34)
[2017-03-17] MEDS: Budesonide/Formoterol 160/4.5 MDI IH SCH ×2 (10:28→21:37)
--- NOTE | 2017-03-17 15:25 | Internal Med Progress Note ---
<Ulises Valera - Last Filed: 03/17/17 15:33> Date of Encounter: 03/17/17 Time of Encounter: 08:45 - Assessment and plan (1) Acute and chronic respiratory failure with hypercapnia Current Visit: No Status: Acute Assessment and plan: Bipap successfully weaned off, patient saturating at 90-93% on 6L nasal cannula. Continue Lasix 60mg TID, strict I and O's, steroid, duoneb Symbicort 160 (2) CHF (congestive heart failure) Current Visit: No Status: Acute Assessment and plan: Continue Lasix, strict I and O's Qualifiers: Congestive heart failure type: diastolic Congestive heart failure chronicity: acute on chronic Qualified Code(s): I50.33 - Acute on chronic diastolic (congestive) heart failure (3) COPD (chronic obstructive pulmonary disease) Current Visit: No Status: Acute Assessment and plan: Continue duoneb, steroid, 6L NC. Qualifiers: COPD type: unspecified COPD Qualified Code(s): J44.9 - Chronic obstructive pulmonary disease, unspecified (4) Hypoxemic respiratory failure, chronic Current Visit: No Status: Acute Assessment and plan: Please see above (5) Pulmonary edema Current Visit: No Status: Acute Assessment and plan: Continue Lasix, likely CHF Qualifiers: Chronicity: acute Qualified Code(s): J81.0 - Acute pulmonary edema (6) Atrial fibrillation Current Visit: No Status: Chronic Assessment and plan: Paroxysmal afib, not currently symptomatic. On ASA due to Cardiology assessment in prior admission for likely inability to comply to coumadin clinic schedule. Qualifiers: Atrial fibrillation type: chronic Qualified Code(s): I48.2 - Chronic atrial fibrillation (7) Tobacco abuse Current Visit: Yes Status: Chronic Assessment and plan: Smokes 1/4 ppd On nicotine patch 14mg TID, cravings continue to be mild while on patch. - Subjective Interval history: Ms. Kyle admitted for acute on chronic respiratory failure secondary to CHF exacerbation, presented to ER yesterday for shortness of breath and productive cough. Dependent on 4L home O2 and 5L CPAP. Tolerating 6L nasal cannula: saturation 90-93%. Pt was able to shower yesterday , able to ambulate for short durations without needing bipap. - Constitutional Vitals: Temp Pulse Resp BP Pulse Ox 97.7 F 100 22 110/76 89 03/17/17 15:19 03/17/17 15:19 03/17/17 15:19 03/17/17 15:19 03/17/17 15:19 General appearance: Present: A&O X 3, no acute distress - Head Head exam: Present: atraumatic - Neck Neck exam general surgery: Present: full ROM. Absent: lymphadenopathy - Respiratory Respiratory exam: Present: decreased breath sounds. Absent: accessory muscle use, wheezes - Cardiovascular Cardiovascular exam: Present: RRR, +S1, +S2 - GI/Abdominal GI/Abdominal exam: Present: no peritoneal signs. Absent: tenderness - Extremities Exam Extremities exam: Present: warm. Absent: calf tenderness, cyanotic Internal Medicine: Result - Labs CBC & Chem 7: 03/17/17 06:07 03/17/17 06:07 Labs: Short CBC 03/17/17 Range/Units 06:07 WBC 9.9 (4.3-11.1) K/mcL Hgb 8.8 L (11.5-15.4) g/dL Hct 30.7 L (35.3-44.9) % Plt Count 265 (140-400) K/mcL Neutrophils # 8.9 (1.6-8.9) K/mcL BMP 03/17/17 06:07 Sodium 144 Potassium 4.4 Chloride 100 Carbon Dioxide 37 H BUN 37 H Creatinine 0.77 Glucose 197 H Calcium 8.9 - ABG Interpretation ABG results: ABG ABG pH 7.28 pH Units (7.32-7.45) L 03/13/17 23:55 ABG pCO2 80 mmHg (35-45) H* 03/13/17 23:55 ABG pO2 91 mmHg (85-104) D 03/13/17 23:55 ABG O2 Saturation 95 % (95-98) 03/13/17 23:55 PT/INR, D-dimer PT 15.0 Seconds (9.4-12.1) H 03/13/17 21:04 Consult Discharge Plan - Plan Referrals: Avinash Quintanilla DO [Resident] - 03/21/17 10:20 am <Al Garcia - Last Filed: 03/17/17 18:25> Date of Encounter: 03/17/17 - Constitutional Vitals: Temp Pulse Resp BP Pulse Ox 97.7 F 89 18 110/76 92 03/17/17 15:19 03/17/17 15:33 03/17/17 16:09 03/17/17 15:19 03/17/17 16:09 Internal Medicine: Result - Labs CBC & Chem 7: 03/17/17 06:07 03/17/17 06:07 Labs: Short CBC 03/17/17 Range/Units 06:07 WBC 9.9 (4.3-11.1) K/mcL Hgb 8.8 L (11.5-15.4) g/dL Hct 30.7 L (35.3-44.9) % Plt Count 265 (140-400) K/mcL Neutrophils # 8.9 (1.6-8.9) K/mcL BMP 03/17/17 06:07 Sodium 144 Potassium 4.4 Chloride 100 Carbon Dioxide 37 H BUN 37 H Creatinine 0.77 Glucose 197 H Calcium 8.9 - ABG Interpretation ABG results: ABG ABG pH 7.28 pH Units (7.32-7.45) L 03/13/17 23:55 ABG pCO2 80 mmHg (35-45) H* 03/13/17 23:55 ABG pO2 91 mmHg (85-104) D 03/13/17 23:55 ABG O2 Saturation 95 % (95-98) 03/13/17 23:55 PT/INR, D-dimer PT 15.0 Seconds (9.4-12.1) H 03/13/17 21:04 - Attending Attestation I conducted a face to face diagnostic evaluation of this patient and my medical decision-making was reviewed with the Resident Physician, Dr. Ulises Valera. I agree with the documented findings, disposition and treatment plan as described except to the extent set forth below: Continue oxygen by nasal cannula, BiPAP as needed. Patient's oxygen saturation is 88-91% on nasal cannula high flow 5 L. Continue diuresis and IV steroids. I have provided smoking cessation counseling today.
[2017-03-18 04:45] LABS: BUN/Creatinine Ratio 45 (6-26); Blood Urea Nitrogen 37 mg/dL (7-20); Calcium 8.9 mg/dL (8.6-10.8); Chloride 95 mEq/L (98-109); Glucose 217 mg/dL (70-99); Osmolality,Calculated 313 (280-300); Sodium 144 mEq/L (136-145); eGFR For African Americans > 60 (> 60); eGFR For Non-African Americans > 60 (> 60)
[2017-03-18 04:48] LABS: Carbon Dioxide 41 mEq/L (19-29)
[2017-03-18] MEDS: methylPREDNISolone 125 MG/2 ML VIAL IVP SCH ×3 (06:41→17:15)
[2017-03-18] MEDS: Ipratropium/Albuterol Neb 3 ML IH SCH ×4 (07:57→22:24)
[2017-03-18] MEDS: Furosemide 40 MG/4 ML VIAL IVP SCH (09:08)
[2017-03-18] MEDS: *HR* Heparin 5,000 UNIT/ML VIAL SQ SCH ×2 (09:09→16:05)
[2017-03-18] MEDS: Insulin LISPRO 300 UNITS/3 ML VIAL SQ SCH ×4 (09:09→20:22)
[2017-03-18] MEDS: Aspirin 325 MG TABLET PO SCH (09:10)
[2017-03-18] MEDS: Diltiazem CD (24hr) 180 MG CAPSULE PO SCH (09:10)
[2017-03-18] MEDS: Insulin DETEMIR 100 UNIT/ML X5UNITS SQ SCH ×2 (09:15→20:23)
[2017-03-18] MEDS: Nicotine 14 MG PATCH.TD24 TD SCH (09:15)
[2017-03-18] MEDS: Nystatin POWDER 30 GM BOTTLE TP SCH ×2 (09:27→20:23)
--- NOTE | 2017-03-18 10:09 | Internal Med Progress Note ---
<Alexis Barbour - Last Filed: 03/18/17 13:09> Date of Encounter: 03/18/17 Time of Encounter: 10:07 - Assessment and plan (1) Acute and chronic respiratory failure with hypercapnia Current Visit: No Status: Acute Assessment and plan: Currently still requiring BiPAP support during the daytime Will continue to try and wean off BiPAP and get her on nasal cannula (takes 4 L @ home) with goal of 88-92% Sp02 Decrease diuresis to 60 IV Lasix BID in setting of contraction alkalosis Continue supportive measures including steroid taper, oxygen, and breathing treatments (2) Acute diastolic (congestive) heart failure Current Visit: No Status: Acute Assessment and plan: Will decrease her Lasix IV 60 mg from TID to BID in setting of contraction alkalosis She has been net negative 6 L overall, continue to track I/O's (3) Atrial fibrillation Current Visit: No Status: Chronic Assessment and plan: Currently rate controlled with HR < 100 over last 24 hours Continue Cardizem 360 mg daily and Metoprolol 50 BID as her blood pressures have remained stable Qualifiers: Atrial fibrillation type: chronic Qualified Code(s): I48.2 - Chronic atrial fibrillation (4) Non-insulin dependent type 2 diabetes mellitus Current Visit: Yes Status: Chronic Assessment and plan: Blood sugars have been below 200 today Continue low dose SSI ACHS accuchecks (5) COPD (chronic obstructive pulmonary disease) Current Visit: No Status: Acute Assessment and plan: Not currently in exacerbation as there is no cough/sputum production Continue home breathing treatments and support with BiPAP/NC Weaning steroids down to 60 mg q12 from q6 Qualifiers: COPD type: unspecified COPD Qualified Code(s): J44.9 - Chronic obstructive pulmonary disease, unspecified (6) Hypertension Current Visit: No Status: Chronic Assessment and plan: Blood pressures stable today Will continue home Cardizem and Lopressor Qualifiers: Hypertension type: essential hypertension Qualified Code(s): I10 - Essential (primary) hypertension (7) Obesity hypoventilation syndrome Current Visit: No Status: Chronic Assessment and plan: BiPAP as needed (8) TYE (obstructive sleep apnea) Current Visit: Yes Status: Chronic Assessment and plan: BiPAP as needed (9) Morbid obesity with BMI of 70 and over, adult Current Visit: No Status: Chronic Assessment and plan: PT/OT consulted and recommended possible SNF placement SW working on [facility] for short term rehab; planning DC for Monday (10) Tobacco abuse Current Visit: No Status: Chronic Assessment and plan: Counseled on smoking cessation Continue with Nicoderm (11) DVT prophylaxis Current Visit: No Status: Acute Assessment and plan: Heparin 5000 units TID - Subjective Interval history: Pt seen and examined. She states her breathing is somewhat improved from yesterday and does not have any pain, nausea, vomiting, diarrhea, or fevers. She is agreeable to going to either [facility] or having home health upon discharge. - Constitutional Vitals: Temp Pulse Resp BP Pulse Ox 97.3 F L 85 19 118/81 96 03/18/17 07:46 03/18/17 09:27 03/18/17 07:46 03/18/17 07:46 03/18/17 09:27 General appearance: Present: cooperative, morbidly obese, no acute distress, answers questions appropriately - Head Head exam: Present: atraumatic, normocephalic - Eye Eye exam: Present: PERRL, conjuntiva pink, sclera anicteric - Neck Neck exam general surgery: Present: supple, trachea midline. Absent: lymphadenopathy - Respiratory Respiratory exam: Present: wheezes. Absent: accessory muscle use, rales, rhonchi - Cardiovascular Cardiovascular exam: Present: distant heart sounds, RRR, +S1, +S2. Absent: diastolic murmur, gallop, rubs, systolic murmur - GI/Abdominal GI/Abdominal exam: Present: normal bowel sounds, soft, no peritoneal signs. Absent: distended, tenderness - Extremities Exam Extremities exam: Present: pedal edema, warm, radial pulses palpable and symmetrical. Absent: calf tenderness, cyanotic - Neurological Exam Neurological exam: Present: alert, oriented X3, no focal deficits. Absent: pronater drift, facial droop, speech deficit - Skin Skin exam: Present: dry, intact Internal Medicine: Result - Labs CBC & Chem 7: 03/17/17 06:07 03/18/17 04:25 Labs: BMP 03/18/17 04:25 Sodium 144 Potassium 4.0 Chloride 95 L Carbon Dioxide 41 H* BUN 37 H Creatinine 0.82 Glucose 217 H Calcium 8.9 - ABG Interpretation ABG results: ABG ABG pH 7.28 pH Units (7.32-7.45) L 03/13/17 23:55 ABG pCO2 80 mmHg (35-45) H* 03/13/17 23:55 ABG pO2 91 mmHg (85-104) D 03/13/17 23:55 ABG O2 Saturation 95 % (95-98) 03/13/17 23:55 PT/INR, D-dimer PT 15.0 Seconds (9.4-12.1) H 03/13/17 21:04 Consult Discharge Plan - Plan Referrals: Avinash Quintanilla DO [Resident] - 03/21/17 10:20 am <Al Garcia - Last Filed: 03/18/17 17:05> Date of Encounter: 03/18/17 - Constitutional Vitals: Temp Pulse Resp BP Pulse Ox 97.4 F L 85 26 131/97 97 03/18/17 16:07 03/18/17 16:07 03/18/17 16:07 03/18/17 16:07 03/18/17 16:07 Internal Medicine: Result - Labs CBC & Chem 7: 03/17/17 06:07 03/18/17 04:25 Labs: BMP 03/18/17 04:25 Sodium 144 Potassium 4.0 Chloride 95 L Carbon Dioxide 41 H* BUN 37 H Creatinine 0.82 Glucose 217 H Calcium 8.9 - ABG Interpretation ABG results: ABG ABG pH 7.28 pH Units (7.32-7.45) L 03/13/17 23:55 ABG pCO2 80 mmHg (35-45) H* 03/13/17 23:55 ABG pO2 91 mmHg (85-104) D 03/13/17 23:55 ABG O2 Saturation 95 % (95-98) 03/13/17 23:55 PT/INR, D-dimer PT 15.0 Seconds (9.4-12.1) H 03/13/17 21:04 - Attending Attestation I conducted a face to face diagnostic evaluation of this patient and my medical decision-making was reviewed with the Resident Physician, Dr Alexis Barbour. I agree with the documented findings, disposition and treatment plan as described except to the extent set forth below: Lung exam with expiratory wheezing. Lower extremity edema slightly improved from yesterday, still 3+ pitting. Plan: Continue with diuresis. Taper steroids.
[2017-03-18] MEDS: Budesonide/Formoterol 160/4.5 MDI IH SCH ×2 (10:21→22:24)
[2017-03-18] MEDS: *HR* Morphine 2 MG/ML SYRINGE IVP PRN (16:05)
[2017-03-18] MEDS ORDERED: Furosemide 40 MG/4 ML VIAL IVP SCH (21:00)
[2017-03-19] MEDS: *HR* Heparin 5,000 UNIT/ML VIAL SQ SCH ×4 (00:14→23:29)
[2017-03-19] MEDS: Melatonin 3 MG TABLET PO PRN ×2 (00:14→23:29)
[2017-03-19] MEDS: Levofloxacin 750 MG/150 ML 750 MG/150 ML BAG IVPB SCH (00:15)
[2017-03-19 03:01] LABS: Hemoglobin 8.8 g/dL (11.5-15.4); Monocytes % 5.6 %
[2017-03-19 03:02] LABS: Basophils % 0.1 %
[2017-03-19 03:03] LABS: Hematocrit 31.5 % (35.3-44.9); Immature Granulocytes % 1.6 % (0-4); Lymphocytes # 0.6 K/mcL (0.6-4.6); Lymphocytes % 8.9 %; Mean Corpuscular HGB Conc 27.9 g/dL (31.6-35.5); Mean Corpuscular Hemoglobin 26.3 pg (28.0-33.3); Mean Platelet Volume 9.4 fL (9.4-12.4); Monocytes # 0.4 K/mcL (0.0-1.3); Nucleated Red Blood Cells 0.4 /100 WBC (0); Platelet Count 257 K/mcL (140-400); Red Blood Count 3.35 M/mcL (3.82-4.97); Red Cell Distribution Width 20.9 % (11.5-14.5); Segmented Neutrophils % 83.8 %
[2017-03-19 03:17] LABS: BUN/Creatinine Ratio 41 (6-26); Blood Urea Nitrogen 36 mg/dL (7-20); Calcium 9.1 mg/dL (8.6-10.8); Chloride 93 mEq/L (98-109); Glucose 203 mg/dL (70-99); Osmolality,Calculated 312 (280-300); Potassium 3.9 mEq/L (3.5-4.5); Sodium 144 mEq/L (136-145); eGFR For African Americans > 60 (> 60); eGFR For Non-African Americans > 60 (> 60)
[2017-03-19 03:22] LABS: Carbon Dioxide 43 mEq/L (19-29)
[2017-03-19 03:36] LABS: Anisocytosis 2+ (Not Present); Macrocytosis Present (Not Present); Microcytosis Present (Not Present); Platelet Estimate Normal (Normal); Polychromasia 1+ (Not Present)
[2017-03-19] MEDS: Ipratropium/Albuterol Neb 3 ML IH SCH ×4 (04:02→21:54)
[2017-03-19] MEDS: methylPREDNISolone 125 MG/2 ML VIAL IVP SCH ×2 (06:47→16:20)
[2017-03-19] MEDS: Diltiazem CD (24hr) 180 MG CAPSULE PO SCH (09:01)
[2017-03-19] MEDS: Aspirin 325 MG TABLET PO SCH (09:01)
[2017-03-19] MEDS: Furosemide 40 MG/4 ML VIAL IVP SCH ×2 (09:01→16:20)
[2017-03-19] MEDS: Nystatin POWDER 30 GM BOTTLE TP SCH ×2 (09:02→20:38)
[2017-03-19] MEDS: Nicotine 14 MG PATCH.TD24 TD SCH (09:02)
[2017-03-19] MEDS: Insulin LISPRO 300 UNITS/3 ML VIAL SQ SCH ×4 (09:03→20:38)
[2017-03-19] MEDS: Insulin DETEMIR 100 UNIT/ML X5UNITS SQ SCH ×2 (09:19→20:39)
--- NOTE | 2017-03-19 10:35 | Internal Med Progress Note ---
<Alexis Barbour - Last Filed: 03/19/17 11:21> Date of Encounter: 03/19/17 Time of Encounter: 10:32 - Assessment and plan (1) Acute and chronic respiratory failure with hypercapnia Current Visit: No Status: Acute Assessment and plan: Currently still requiring BiPAP support during the daytime but currently is on nasal cannula after breakfast Will continue to try and wean off BiPAP and get her on nasal cannula (takes 4 L @ home) with goal of 88-92% Sp02 Decrease diuresis to 40 IV Lasix BID in setting of contraction alkalosis Continue supportive measures including steroid taper, oxygen, and breathing treatments (2) Acute diastolic (congestive) heart failure Current Visit: No Status: Acute Assessment and plan: Will decrease her Lasix IV 40 mg from TID to BID in setting of contraction alkalosis She has been net negative 7 L overall, continue to track I/O's (3) Atrial fibrillation Current Visit: No Status: Chronic Assessment and plan: Currently rate controlled with HR < 100 over last 24 hours Continue Cardizem 360 mg daily and Metoprolol 50 BID as her blood pressures have remained stable Qualifiers: Atrial fibrillation type: chronic Qualified Code(s): I48.2 - Chronic atrial fibrillation (4) Non-insulin dependent type 2 diabetes mellitus Current Visit: Yes Status: Chronic Assessment and plan: Blood sugars have been above 200 today Increase to medium dose SSI ACHS accuchecks (5) COPD (chronic obstructive pulmonary disease) Current Visit: No Status: Acute Assessment and plan: Not currently in exacerbation as there is no cough/sputum production Continue home breathing treatments and support with BiPAP/NC Continue solumedrol at to 60 mg q12 Qualifiers: COPD type: unspecified COPD Qualified Code(s): J44.9 - Chronic obstructive pulmonary disease, unspecified (6) Hypertension Current Visit: No Status: Chronic Assessment and plan: Blood pressures stable today Will continue home Cardizem and Lopressor Qualifiers: Hypertension type: essential hypertension Qualified Code(s): I10 - Essential (primary) hypertension (7) Obesity hypoventilation syndrome Current Visit: No Status: Chronic Assessment and plan: BiPAP as needed (8) TYE (obstructive sleep apnea) Current Visit: Yes Status: Chronic Assessment and plan: BiPAP as needed (9) Morbid obesity with BMI of 70 and over, adult Current Visit: No Status: Chronic Assessment and plan: PT/OT consulted and recommended possible SNF placement SW working on [place] for short term rehab; planning DC for Monday (10) Tobacco abuse Current Visit: No Status: Chronic Assessment and plan: Counseled on smoking cessation Continue with Nicoderm (11) DVT prophylaxis Current Visit: No Status: Acute Assessment and plan: Heparin 5000 units TID - Subjective Interval history: Pt seen and examined. She states her breathing is better than yesterday and she is on 6 L of oxygen and has been off BiPAP since breakfast. She denies any pain anywhere and has no cough or fevers. She had breakfast without any issues of nausea, vomiting or diarrhea. - Constitutional Vitals: Temp Pulse Resp BP Pulse Ox 97.5 F L 89 24 108/81 100 03/19/17 07:58 03/19/17 07:58 03/19/17 07:58 03/19/17 07:58 03/19/17 07:58 General appearance: Present: cooperative, morbidly obese, no acute distress, answers questions appropriately - Head Head exam: Present: atraumatic, normocephalic - Eye Eye exam: Present: PERRL, conjuntiva pink, sclera anicteric - Neck Neck exam general surgery: Present: supple, trachea midline. Absent: lymphadenopathy - Respiratory Respiratory exam: Present: wheezes. Absent: accessory muscle use, rales, rhonchi - Cardiovascular Cardiovascular exam: Present: RRR, +S1, +S2. Absent: diastolic murmur, gallop, rubs, systolic murmur - GI/Abdominal GI/Abdominal exam: Present: normal bowel sounds, soft, no peritoneal signs. Absent: distended, tenderness - Extremities Exam Extremities exam: Present: pedal edema, warm, radial pulses palpable and symmetrical. Absent: calf tenderness, cyanotic - Neurological Exam Neurological exam: Present: alert, oriented X3, no focal deficits. Absent: pronater drift, facial droop, speech deficit - Skin Skin exam: Present: dry, intact Internal Medicine: Result - Labs CBC & Chem 7: 03/19/17 02:41 03/19/17 02:41 Labs: Short CBC 03/19/17 Range/Units 02:41 WBC 7.1 (4.3-11.1) K/mcL Hgb 8.8 L (11.5-15.4) g/dL Hct 31.5 L (35.3-44.9) % Plt Count 257 (140-400) K/mcL Neutrophils # 6.0 (1.6-8.9) K/mcL [facility] 03/19/17 02:41 Sodium 144 Potassium 3.9 Chloride 93 L Carbon Dioxide 43 H* BUN 36 H Creatinine 0.88 Glucose 203 H Calcium 9.1 - ABG Interpretation ABG results: ABG ABG pH 7.28 pH Units (7.32-7.45) L 03/13/17 23:55 ABG pCO2 80 mmHg (35-45) H* 03/13/17 23:55 ABG pO2 91 mmHg (85-104) D 03/13/17 23:55 ABG O2 Saturation 95 % (95-98) 03/13/17 23:55 PT/INR, D-dimer PT 15.0 Seconds (9.4-12.1) H 03/13/17 21:04 Consult Discharge Plan - Plan Referrals: Avinash Quintanilla DO [Resident] - 03/21/17 10:20 am <Al Garcia - Last Filed: 03/19/17 14:34> Date of Encounter: 03/19/17 - Constitutional Vitals: Temp Pulse Resp BP Pulse Ox 98.3 F 88 20 107/69 91 03/19/17 11:24 03/19/17 11:24 03/19/17 11:24 03/19/17 11:24 03/19/17 11:24 Internal Medicine: Result - Labs CBC & Chem 7: 03/19/17 02:41 03/19/17 02:41 Labs: Short CBC 03/19/17 Range/Units 02:41 WBC 7.1 (4.3-11.1) K/mcL Hgb 8.8 L (11.5-15.4) g/dL Hct 31.5 L (35.3-44.9) % Plt Count 257 (140-400) K/mcL Neutrophils # 6.0 (1.6-8.9) K/mcL [facility] 03/19/17 02:41 Sodium 144 Potassium 3.9 Chloride 93 L Carbon Dioxide 43 H* BUN 36 H Creatinine 0.88 Glucose 203 H Calcium 9.1 - ABG Interpretation ABG results: ABG ABG pH 7.28 pH Units (7.32-7.45) L 03/13/17 23:55 ABG pCO2 80 mmHg (35-45) H* 03/13/17 23:55 ABG pO2 91 mmHg (85-104) D 03/13/17 23:55 ABG O2 Saturation 95 % (95-98) 03/13/17 23:55 PT/INR, D-dimer PT 15.0 Seconds (9.4-12.1) H 03/13/17 21:04 - Attending Attestation I conducted a face to face diagnostic evaluation of this patient and my medical decision-making was reviewed with the Resident Physician, Dr Alexis Barbour. I agree with the documented findings, disposition and treatment plan as described except to the extent set forth below: On exam she is in no acute distress. Lung auscultation reveals bilateral expiratory wheezes. There is 2+ lower extremity pitting edema. Plan: Continue IV Lasix, IV Solu-Medrol, inhaled albuterol and ipratropium.
[2017-03-19] MEDS: Budesonide/Formoterol 160/4.5 MDI IH SCH ×2 (10:38→21:55)
[2017-03-19] MEDS: *HR* Morphine 2 MG/ML SYRINGE IVP PRN (12:00)
[2017-03-20] MEDS: Ipratropium/Albuterol Neb 3 ML IH SCH ×4 (03:25→21:48)
[2017-03-20 04:06] LABS: Basophils % 0.2 %; Mean Corpuscular Volume 92.6 fL (83.0-100.0); Monocytes % 6.3 %; Nucleated Red Blood Cells 0.4 /100 WBC (0)
[2017-03-20 04:07] LABS: Hematocrit 31.2 % (35.3-44.9); Hemoglobin 9.1 g/dL (11.5-15.4); Immature Granulocytes % 2.9 % (0-4); Lymphocytes # 0.8 K/mcL (0.6-4.6); Lymphocytes % 8.2 %; Mean Corpuscular HGB Conc 29.2 g/dL (31.6-35.5); Mean Platelet Volume 10.1 fL (9.4-12.4); Monocytes # 0.6 K/mcL (0.0-1.3); Platelet Count 251 K/mcL (140-400); Red Blood Count 3.37 M/mcL (3.82-4.97); Red Cell Distribution Width 20.9 % (11.5-14.5); Segmented Neutrophils % 82.4 %
[2017-03-20 04:08] LABS: Neutrophils # 7.7 K/mcL (1.6-8.9)
[2017-03-20 04:19] LABS: BUN/Creatinine Ratio 45 (6-26); Blood Urea Nitrogen 36 mg/dL (7-20); Calcium 8.9 mg/dL (8.6-10.8); Chloride 93 mEq/L (98-109); Glucose 213 mg/dL (70-99); Osmolality,Calculated 311 (280-300); Potassium 3.9 mEq/L (3.5-4.5); Sodium 143 mEq/L (136-145); eGFR For African Americans > 60 (> 60); eGFR For Non-African Americans > 60 (> 60)
[2017-03-20 04:21] LABS: Carbon Dioxide 45 mEq/L (19-29)
[2017-03-20 04:52] LABS: Hypochromasia Present (Not Present)
[2017-03-20] MEDS: methylPREDNISolone 125 MG/2 ML VIAL IVP SCH ×3 (06:52→18:15)
[2017-03-20] MEDS: Diltiazem CD (24hr) 180 MG CAPSULE PO SCH (08:02)
[2017-03-20] MEDS: Aspirin 325 MG TABLET PO SCH (08:02)
[2017-03-20] MEDS: Furosemide 40 MG/4 ML VIAL IVP SCH (08:03)
[2017-03-20] MEDS: Insulin LISPRO 300 UNITS/3 ML VIAL SQ SCH ×4 (08:03→21:23)
[2017-03-20] MEDS: Nicotine 14 MG PATCH.TD24 TD SCH (08:04)
[2017-03-20] MEDS: Nystatin POWDER 30 GM BOTTLE TP SCH ×2 (08:04→21:22)
[2017-03-20] MEDS: *HR* Heparin 5,000 UNIT/ML VIAL SQ SCH ×3 (08:04→23:08)
[2017-03-20] MEDS: Insulin DETEMIR 100 UNIT/ML X5UNITS SQ SCH ×2 (08:33→21:24)
[2017-03-20] MEDS: Budesonide/Formoterol 160/4.5 MDI IH SCH ×2 (10:57→21:48)
--- NOTE | 2017-03-20 11:10 | Discharge Summary ---
<Ulises Valera - Last Filed: 03/20/17 12:10> Date of Encounter: 03/20/17 Time of Encounter: 08:45 - Discharge Diagnosis (1) Acute and chronic respiratory failure with hypercapnia Priority: Primary Status: Acute (2) CHF (congestive heart failure) Priority: Secondary Status: Acute Qualifiers: Congestive heart failure type: diastolic Congestive heart failure chronicity: acute on chronic Qualified Code(s): I50.33 - Acute on chronic diastolic (congestive) heart failure (3) COPD (chronic obstructive pulmonary disease) Priority: Secondary Status: Acute Qualifiers: COPD type: unspecified COPD Qualified Code(s): J44.9 - Chronic obstructive pulmonary disease, unspecified (4) Hypoxemic respiratory failure, chronic Priority: Secondary Status: Acute (5) Pulmonary edema Priority: Secondary Status: Acute Qualifiers: Chronicity: acute Qualified Code(s): J81.0 - Acute pulmonary edema (6) Atrial fibrillation Priority: Secondary Status: Chronic Qualifiers: Atrial fibrillation type: chronic Qualified Code(s): I48.2 - Chronic atrial fibrillation (7) Tobacco abuse Priority: Secondary Status: Chronic - Discharge Medications Prescriptions: levoFLOXacin [Levaquin] 750 mg PO Q24H 3 Days #3 tablet predniSONE [PredniSONE] 10 mg PO DAILY #30 tablet Home Medications: Aclidinium [place] [Tudorza Pressair] 1 puff IH BID 09/08/15 [History] Albuterol Sulfate [Proair Hfa] 2 puff IH Q4H PRN 09/08/15 [History] Budesonide/Formoterol 160/4.5 [Symbicort 160/4.5] 2 puff IH BIDR 09/08/15 [ History] Simvastatin [Zocor] 40 mg PO HS 09/08/15 [History] Aspirin 325 mg PO DAILY #60 tablet 09/19/15 [Rx] Diltiazem CD (24hr) [Cardizem CD] 360 mg PO DAILY #30 cap.er.24h 09/19/15 [Rx] Metoprolol [Lopressor] 50 mg PO BID #60 tablet 09/19/15 [Rx] Albuterol Neb [Proventil Neb] 2.5 mg IH Q4HR 07/05/16 [History] Oxygen 4 l .ROUTE AD 12/05/16 [History] Ipratropium/Albuterol Neb [Duoneb] 3 ml IH [id number] PRN inh 12/08/16 [Rx] metFORMIN [Glucophage] 500 mg PO BIDWM #60 tablet 01/27/17 [Rx] Furosemide [Lasix] 40 mg PO BID 02/17/17 [History] levoFLOXacin [Levaquin] 750 mg PO Q24H 3 Days #3 tablet 03/20/17 [Rx] predniSONE [PredniSONE] 10 mg PO DAILY #30 tablet 03/20/17 [Rx] Allergies/Adverse Reactions: 3 Allergy/AdvReac Type Severity Reaction Status Date / Time Penicillins Allergy Rash Verified 09/03/16 22:33 Date of admission: 03/14/17 00:58 Primary care physician: Aleksey Huggins DO Consults: 03/14/17 01:02 Consult to Pastoral Services [CONS] Routine Comment: Pt wants to discuss being saved. Consult to Facilities Engineer [CONS] Routine Reason for SW Consult: Home oxygen and PT follow up. 03/15/17 14:59 Consult to Physical Therapy [CONS] Routine Comment: Evaluate, develop and implement POC Reason for Consult: EVAL AND TREAT 03/15/17 15:00 Consult to Occupational Therapy [CONS] Routine Comment: Evaluate, develop and implement POC Reason for Consult: EVAL AND TREAT - Patient Status Disposition: Home, Self-Care Functional capacity at discharge: wheelchair bound (morbid obesity; can stand and march in place, but cannot ambulate significantly) Overall status at discharge: patient is progressing back to baseline - Discharge Instructions Follow Up With: Avinash Quintanilla DO [Resident] - 03/21/17 10:20 am Additional Instructions: Referral to ECF/SNF documented; patient preference [facility] but no placement; trying to encourage to consider different SNF as patient not ready for discharge home. Pt to f/u with PCP within 1-2 weeks. Pt has ASSIGNMENT CLERK for respiratory, needs to call her ASSIGNMENT CLERK to make sure they visit on her regular schedule now that she is discharged. - Diet and Activity Diet: diabetic diet, low salt diet Hospital course: Ms. Shanda Kyle is a 56 y/o female with past medical history of diastolic CHF , COPDdependent on 4L nasal cannula at home, 5L CPAP at night, concurrent tobacco use, type 2 diabetesnon-insulin dependent, aFib on ASA, not anticoagulated due to compliance issues according to past cardiology visits. She was recently admitted for COPD exacerbation 02/21/17; she presented to ED with productive cough and shortness of breath and admitted for respiratory failure with hypoxia likely secondary to CHF and volume overload. Patient was given bipap, Lasix, antibiotics, duoneb therapy. Aggressiveness of diuresis and weaning capped by patients comorbid obesity and kidney tolerance. Ultimately patient improved on saturation, bipap discontinued, was able to saturate +90% on 6L. Referral to ECF/SNF documented; patient preference [facility] but no placement; trying to encourage to consider different SNF as patient not ready for discharge home. - Time Spent with Patient Total time spent providing and/or coordinating discharge services: - Constitutional Vitals: Temp Pulse Resp BP Pulse Ox 98.2 F 82 19 110/82 94 03/20/17 06:41 03/20/17 08:20 03/20/17 06:41 03/20/17 06:41 03/20/17 08:29 General appearance: Present: cooperative, morbidly obese, no acute distress, answers questions appropriately - Head Head exam: Present: atraumatic - Neck Neck exam general surgery: Present: full ROM - Respiratory Respiratory exam: Present: decreased breath sounds, CTAB. Absent: rhonchi - GI/Abdominal GI/Abdominal exam: Present: no peritoneal signs. Absent: tenderness - Expanded Lower Extremities Exam Lower Leg exam: Absent: Alden's sign, swelling, tenderness Gait: Present: observed and normal (limited by significant obesity) <Al Garcia - Last Filed: 03/20/17 18:14> Date of Encounter: 03/20/17 Date of admission: 03/14/17 00:58 Primary care physician: Aleksey Huggins DO Consults: 03/14/17 01:02 Consult to Pastoral Services [CONS] Routine Comment: Pt wants to discuss being saved. Consult to Facilities Engineer [CONS] Routine Reason for SW Consult: Home oxygen and PT follow up. 03/15/17 14:59 Consult to Physical Therapy [CONS] Routine Comment: Evaluate, develop and implement POC Reason for Consult: EVAL AND TREAT 03/15/17 15:00 Consult to Occupational Therapy [CONS] Routine Comment: Evaluate, develop and implement POC Reason for Consult: EVAL AND TREAT Hospital course: Ms. Kyle is a 56 year old female - Time Spent with Patient Total time spent providing and/or coordinating discharge services: - Constitutional Vitals: Temp Pulse Resp BP Pulse Ox 97.8 F 92 19 106/74 96 03/20/17 16:30 03/20/17 16:30 03/20/17 16:33 03/20/17 16:30 03/20/17 16:33 - Attending Attestation I conducted a face to face diagnostic evaluation of this patient and my medical decision-making was reviewed with the Resident Physician, Dr. Ulises Valera. I agree with the documented findings, disposition and treatment plan as described except to the extent set forth below: The patient is not stable for discharge home. I think it would be an unsafe home discharge at this point due to debilitation secondary to morbid obesity and shortness of breath secondary to respiratory failure due to COPD and CHF. We referred the patient to ECF.
--- NOTE | 2017-03-20 12:09 | Physician Discharge Referral ---
ExtendedCare Referral Info Transfer To: SNF/ECF Provider in Charge: Dr. Garcia Provider in Charge after Transfer: Other Institutional Level of Care: Intermediate - Diagnosis (1) Acute and chronic respiratory failure with hypercapnia Status: Acute (2) CHF (congestive heart failure) Status: Acute (3) COPD (chronic obstructive pulmonary disease) Status: Acute (4) Hypoxemic respiratory failure, chronic Status: Acute (5) Pulmonary edema Status: Acute (6) Atrial fibrillation Status: Chronic (7) Tobacco abuse Status: Chronic - Transfer Medications Prescriptions: levoFLOXacin [Levaquin] 750 mg PO Q24H 3 Days #3 tablet predniSONE [PredniSONE] 10 mg PO DAILY #30 tablet Home Medications: Aclidinium [place] [Tudorza Pressair] 1 puff IH BID 09/08/15 [History] Albuterol Sulfate [Proair Hfa] 2 puff IH Q4H PRN 09/08/15 [History] Budesonide/Formoterol 160/4.5 [Symbicort 160/4.5] 2 puff IH BIDR 09/08/15 [ History] Simvastatin [Zocor] 40 mg PO HS 09/08/15 [History] Aspirin 325 mg PO DAILY #60 tablet 09/19/15 [Rx] Diltiazem CD (24hr) [Cardizem CD] 360 mg PO DAILY #30 cap.er.24h 09/19/15 [Rx] Metoprolol [Lopressor] 50 mg PO BID #60 tablet 09/19/15 [Rx] Albuterol Neb [Proventil Neb] 2.5 mg IH Q4HR 07/05/16 [History] Oxygen 4 l .ROUTE AD 12/05/16 [History] Ipratropium/Albuterol Neb [Duoneb] 3 ml IH [id number] PRN inh 12/08/16 [Rx] metFORMIN [Glucophage] 500 mg PO BIDWM #60 tablet 01/27/17 [Rx] Furosemide [Lasix] 40 mg PO BID 02/17/17 [History] levoFLOXacin [Levaquin] 750 mg PO Q24H 3 Days #3 tablet 03/20/17 [Rx] predniSONE [PredniSONE] 10 mg PO DAILY #30 tablet 03/20/17 [Rx] Allergies/Adverse Reactions: 3 Allergy/AdvReac Type Severity Reaction Status Date / Time Penicillins Allergy Rash Verified 09/03/16 22:33 - Respiratory Orders Smoking Cessation: Smoking cessation has been advised. For more information, call the [place] Tobacco Quit Line at 2-183-MXND-NOW. CERTIFICATION: I certify that the transfer of the above named patient to an Extended Care Facility is necessary for the continuing treatment of the diagnosis listed. The above information is true and accurate reflection of patient's current condition. Confidential - Redisclosure prohibited without a patient's written consent.
[2017-03-20] MEDS: predniSONE 20 MG TABLET PO SCH (18:59)
[2017-03-20] MEDS ORDERED: levoFLOXacin 750 MG TABLET PO SCH (22:00)
[2017-03-20] MEDS: Melatonin 3 MG TABLET PO PRN (23:08)
[2017-03-21] MEDS: Ipratropium/Albuterol Neb 3 ML IH SCH ×2 (04:00→10:48)
[2017-03-21 06:54] LABS: Blood Urea Nitrogen 31 mg/dL (7-20); Chloride 94 mEq/L (98-109); Potassium 3.8 mEq/L (3.5-4.5); Sodium 142 mEq/L (136-145)
[2017-03-21 06:55] LABS: BUN/Creatinine Ratio 45 (6-26); Calcium 8.7 mg/dL (8.6-10.8); Glucose 161 mg/dL (70-99); Osmolality,Calculated 304 (280-300); eGFR For African Americans > 60 (> 60); eGFR For Non-African Americans > 60 (> 60)
[2017-03-21 06:56] LABS: Basophils % 0.2 %; Hematocrit 31.7 % (35.3-44.9); Immature Granulocytes % 2.1 % (0-4); Lymphocytes % 10.6 %; Mean Corpuscular HGB Conc 28.4 g/dL (31.6-35.5); Mean Corpuscular Hemoglobin 26.5 pg (28.0-33.3); Mean Corpuscular Volume 93.2 fL (83.0-100.0); Mean Platelet Volume 9.6 fL (9.4-12.4); Monocytes # 0.6 K/mcL (0.0-1.3); Monocytes % 5.8 %; Neutrophils # 7.6 K/mcL (1.6-8.9); Nucleated Red Blood Cells 0.5 /100 WBC (0); Platelet Count 229 K/mcL (140-400); Red Cell Distribution Width 21.1 % (11.5-14.5); Segmented Neutrophils % 81.3 %
[2017-03-21 07:08] LABS: Carbon Dioxide 46 mEq/L (19-29)
[2017-03-21 08:11] LABS: Basophilic Stippling 1+ (Not Present)
[2017-03-21 08:12] LABS: Anisocytosis 1+ (Not Present); Hypochromasia Present (Not Present); Platelet Estimate Normal (Normal)
[2017-03-21] MEDS: Aspirin 325 MG TABLET PO SCH (08:41)
[2017-03-21] MEDS: *HR* Heparin 5,000 UNIT/ML VIAL SQ SCH (08:42)
[2017-03-21] MEDS: Insulin DETEMIR 100 UNIT/ML X5UNITS SQ SCH (08:42)
[2017-03-21] MEDS: Insulin LISPRO 300 UNITS/3 ML VIAL SQ SCH ×2 (08:42→12:00)
[2017-03-21] MEDS: Nicotine 14 MG PATCH.TD24 TD SCH (08:43)
[2017-03-21] MEDS: Diltiazem CD (24hr) 180 MG CAPSULE PO SCH (08:43)
[2017-03-21] MEDS: predniSONE 20 MG TABLET PO SCH (08:44)
[2017-03-21] MEDS: Nystatin POWDER 30 GM BOTTLE TP SCH (08:44)
[2017-03-21] MEDS ORDERED: Furosemide 40 MG/4 ML VIAL IVP SCH (09:00)
[2017-03-21] MEDS: Budesonide/Formoterol 160/4.5 MDI IH SCH (10:47)
--- NOTE | 2017-03-21 11:28 | Internal Med Progress Note ---
<Ulises Valera - Last Filed: 03/21/17 13:44> Date of Encounter: 03/21/17 Time of Encounter: 09:00 - Assessment and plan (1) Acute and chronic respiratory failure with hypercapnia Status: Acute Assessment and plan: Pt stable on 5L NC, saturating 90-93% Will discharge to home (discharge hospital course in discharge note) with Lasix 60mg BID, increased from her home rx 40mg Home meds reconciled, will taper on Prednisone and give final dose of Levoquin. (2) CHF (congestive heart failure) Status: Acute Assessment and plan: Discharging with Lasix 60mg BID; low-salt diet Qualifiers: Congestive heart failure type: diastolic Congestive heart failure chronicity: acute on chronic Qualified Code(s): I50.33 - Acute on chronic diastolic (congestive) heart failure (3) COPD (chronic obstructive pulmonary disease) Status: Acute Assessment and plan: Not currently in exacerbation as there is no cough/sputum production Has home O2, 4L during day, 5L with CPAP, continue. Prednisone taper. Continue home COPD meds. Qualifiers: COPD type: unspecified COPD Qualified Code(s): J44.9 - Chronic obstructive pulmonary disease, unspecified (4) Hypoxemic respiratory failure, chronic Status: Acute Assessment and plan: Please see above (5) Pulmonary edema Status: Acute Assessment and plan: Continue Lasix, likely CHF Qualifiers: Chronicity: acute Qualified Code(s): J81.0 - Acute pulmonary edema (6) Atrial fibrillation Status: Chronic Assessment and plan: Shoveler has her on ASA (coumadin had not been initiated due to compliance with coumadin clinic low), will continue ASA as home med on discharge. Qualifiers: Atrial fibrillation type: chronic Qualified Code(s): I48.2 - Chronic atrial fibrillation (7) Tobacco abuse Status: Chronic Assessment and plan: Smokes 1/4 ppd On nicotine patch 14mg TID, cravings continue to be mild while on patch. To f/u with PCP regarding smoking cessation. Discussion regarding smokin cessation held through hospital course. - Subjective Interval history: Ms. Kyle admitted for acute on chronic respiratory failure secondary to CHF exacerbation, presented to ER yesterday for shortness of breath and productive cough. Dependent on 4L home O2 and 5L CPAP. Tolerating 5L nasal cannula: saturation 90-93%. Is not short of breath, wants to go home. Able to maintain saturation [id number] with PT at bedside. Discharge note as per 03/20/17. - Constitutional Vitals: Temp Pulse Resp BP Pulse Ox 98.0 F 79 18 123/86 91 03/21/17 07:52 03/21/17 07:52 03/21/17 10:48 03/21/17 07:52 03/21/17 10:48 General appearance: Present: cooperative, morbidly obese, no acute distress, answers questions appropriately - Head Head exam: Present: atraumatic - Neck Neck exam general surgery: Present: full ROM - Respiratory Respiratory exam: Present: decreased breath sounds, rhonchi (L, non-worsening) - Cardiovascular Cardiovascular exam: Present: RRR, +S1, +S2 - GI/Abdominal GI/Abdominal exam: Present: no peritoneal signs. Absent: tenderness - Skin Skin exam: Present: excoriation (old excoriations, (pt says from her [place])) Internal Medicine: Result - Labs CBC & Chem 7: 03/21/17 06:28 03/21/17 06:28 Labs: Short CBC 03/21/17 Range/Units 06:28 WBC 9.4 (4.3-11.1) K/mcL Hgb 9.0 L (11.5-15.4) g/dL Hct 31.7 L (35.3-44.9) % Plt Count 229 (140-400) K/mcL Neutrophils # 7.6 (1.6-8.9) K/mcL BMP 03/21/17 06:28 Sodium 142 Potassium 3.8 Chloride 94 L Carbon Dioxide 46 H* BUN 31 H Creatinine 0.69 Glucose 161 H Calcium 8.7 - ABG Interpretation ABG results: ABG ABG pH 7.28 pH Units (7.32-7.45) L 03/13/17 23:55 ABG pCO2 80 mmHg (35-45) H* 03/13/17 23:55 ABG pO2 91 mmHg (85-104) D 03/13/17 23:55 ABG O2 Saturation 95 % (95-98) 03/13/17 23:55 PT/INR, D-dimer PT 15.0 Seconds (9.4-12.1) H 03/13/17 21:04 Consult Discharge Plan - Plan Instructions: Furosemide (By mouth), Prednisone (By mouth), Nicotine (Absorbed through the skin), Levofloxacin (By mouth), Budesonide/Formoterol (By breathing) , Heart Failure (DC), Acute Respiratory Distress Syndrome (DC) Referrals: Beckie Girard DO [Resident] - 03/27/17 3:00 pm Prescriptions: Budesonide/Formoterol 160/4.5 [Symbicort 160/4.5] 2 puff IH BIDR #1 hfa.aer.ad Furosemide [Lasix] 60 mg PO BID #45 tablet levoFLOXacin [Levaquin] 750 mg PO Q24H 3 Days #3 tablet Nicotine Patch [Nicoderm] 14 mg TD DAILY #30 patch.td24 predniSONE [PredniSONE] 10 mg PO DAILY #30 tablet <Al Garcia - Last Filed: 03/21/17 18:02> Date of Encounter: 03/21/17 - Constitutional Vitals: Temp Pulse Resp BP Pulse Ox 98.2 F 79 22 129/84 90 03/21/17 11:29 03/21/17 07:52 03/21/17 11:29 03/21/17 11:29 03/21/17 15:03 Internal Medicine: Result - Labs CBC & Chem 7: 03/21/17 06:28 03/21/17 06:28 Labs: Short CBC 03/21/17 Range/Units 06:28 WBC 9.4 (4.3-11.1) K/mcL Hgb 9.0 L (11.5-15.4) g/dL Hct 31.7 L (35.3-44.9) % Plt Count 229 (140-400) K/mcL Neutrophils # 7.6 (1.6-8.9) K/mcL BMP 03/21/17 06:28 Sodium 142 Potassium 3.8 Chloride 94 L Carbon Dioxide 46 H* BUN 31 H Creatinine 0.69 Glucose 161 H Calcium 8.7 - ABG Interpretation ABG results: ABG ABG pH 7.28 pH Units (7.32-7.45) L 03/13/17 23:55 ABG pCO2 80 mmHg (35-45) H* 03/13/17 23:55 ABG pO2 91 mmHg (85-104) D 03/13/17 23:55 ABG O2 Saturation 95 % (95-98) 03/13/17 23:55 PT/INR, D-dimer PT 15.0 Seconds (9.4-12.1) H 03/13/17 21:04 - Attending Attestation I conducted a face to face diagnostic evaluation of this patient and my medical decision-making was reviewed with the Resident Physician, Dr. Ulises Valera. I agree with the documented findings, disposition and treatment plan as described except to the extent set forth below: Patient's shortness of breath has improved. She is saturating in the low 90s on nasal cannula. We made the referral to 2 nursing homes in the area and her admission was declined. She refuses to make any other referrals to nursing homes and wants to be discharged home. I counseled her extensively about the the health benefits of smoking cessation. The patient will be discharged home with home health.
[2017-03-21 11:34] VITALS: BP 129/84
--- NOTE | 2017-03-21 14:35 | Physician Discharge Referral ---
Home Health/Hosp Referral Info Transfer to: Home Health Attending Provider: Dr. Garcia Provider in Charge Post Discharge: Other - Diagnosis (1) Acute and chronic respiratory failure with hypercapnia Status: Acute (2) CHF (congestive heart failure) Status: Acute (3) COPD (chronic obstructive pulmonary disease) Status: Acute (4) Hypoxemic respiratory failure, chronic Status: Acute (5) Pulmonary edema Status: Acute (6) Atrial fibrillation Status: Chronic (7) Tobacco abuse Status: Chronic - Respiratory Orders Smoking Cessation: Smoking cessation has been advised. For more information, call the [place] Tobacco Quit Line at 8-460-MEAA-NOW. - Transfer Medications Prescriptions: Budesonide/Formoterol 160/4.5 [Symbicort 160/4.5] 2 puff IH BIDR #1 hfa.aer.ad Furosemide [Lasix] 60 mg PO BID #45 tablet levoFLOXacin [Levaquin] 750 mg PO Q24H 3 Days #3 tablet Nicotine Patch [Nicoderm] 14 mg TD DAILY #30 patch.td24 predniSONE [PredniSONE] 10 mg PO DAILY #30 tablet Home Medications: Aclidinium [place] [Tudorza Pressair] 1 puff IH BID 09/08/15 [History] Albuterol Sulfate [Proair Hfa] 2 puff IH Q4H PRN 09/08/15 [History] Budesonide/Formoterol 160/4.5 [Symbicort 160/4.5] 2 puff IH BIDR 09/08/15 [ History] Simvastatin [Zocor] 40 mg PO HS 09/08/15 [History] Aspirin 325 mg PO DAILY #60 tablet 09/19/15 [Rx] Diltiazem CD (24hr) [Cardizem CD] 360 mg PO DAILY #30 cap.er.24h 09/19/15 [Rx] Metoprolol [Lopressor] 50 mg PO BID #60 tablet 09/19/15 [Rx] Albuterol Neb [Proventil Neb] 2.5 mg IH Q4HR 07/05/16 [History] Oxygen 4 l .ROUTE AD 12/05/16 [History] Ipratropium/Albuterol Neb [Duoneb] 3 ml IH [id number] PRN inh 12/08/16 [Rx] metFORMIN [Glucophage] 500 mg PO BIDWM #60 tablet 01/27/17 [Rx] Furosemide [Lasix] 40 mg PO BID 02/17/17 [History] levoFLOXacin [Levaquin] 750 mg PO Q24H 3 Days #3 tablet 03/20/17 [Rx] predniSONE [PredniSONE] 10 mg PO DAILY #30 tablet 03/20/17 [Rx] Budesonide/Formoterol 160/4.5 [Symbicort 160/4.5] 2 puff IH BIDR #1 hfa.aer.ad 03/21/17 [Rx] Furosemide [Lasix] 60 mg PO BID #45 tablet 03/21/17 [Rx] Nicotine Patch [Nicoderm] 14 mg TD DAILY #30 patch.td24 03/21/17 [Rx] Allergies/Adverse Reactions: 3 Allergy/AdvReac Type Severity Reaction Status Date / Time Penicillins Allergy Rash Verified 09/03/16 22:33 Certification: Further, I certify that my clinical findings support that this patient is homebound (i.e. absences from home require considerable and taxing effort and are for medical reasons or sikhism services or infrequently or short duration when for other reasons) because: Homebound Reason: Severity of cardiac or pulmonary status limits activity tolerance Attestation: My signature below is to certify that this patient is under my care and that I, or nurse practitioner, or a physician's periodicals library assistant working with me, has a face-to -face encounter with this patient.
[2017-03-21] MEDS ORDERED: Furosemide 40 MG TABLET PO SCH (17:00)
== END 2017-03-21 14:26 | disposition home health service (06) | DRG 133 ==
LOC: EMEROO 20:35 → 2NNU 20:35 → SUATTDRO 03-14 00:58
PROVIDERS: ADMIT Internal Medicine; ATTEND Internal Medicine

== ENCOUNTER 2017-03-21 21:39 | Inpatient (IN) ==
[2017-03-21] MEDS ORDERED: Ipratropium/Albuterol Neb 3 ML IH ONE (21:41)
[2017-03-21] MEDS ORDERED: methylPREDNISolone 125 MG/2 ML VIAL IVP ONE (21:41)
[2017-03-21] MEDS ORDERED: Nitroglycerin 0.4 MG TAB.SUBL SL PRN (21:42)
--- NOTE | 2017-03-21 21:43 | Emergency Department Note ---
Disposition Clinical Impression: CHF exacerbation Qualifiers: Congestive heart failure type: unspecified congestive heart failure type Qualified Code(s): I50.9 - Heart failure, unspecified Disposition: Admitted As Inpatient Condition: Good General Adult HPI - General Chief complaint: ED Shortness of Breath/Dyspnea Stated complaint: difficulty breathing Time Seen by Provider: 03/21/17 21:41 Source: patient, EMS Mode of arrival: EMS Limitations: no limitations Nursing Notes Reviewed: Yes Vital Signs Reviewed: Yes - History of Present Illness HPI Narrative: Patient presents for acute respiratory distress. Patient was discharged from the hospital earlier today. At home was to Make with the pulse ox of 68% on 5 L nasal cannula. Upon presenting to the emergency department she is on a nonrebreather with an albuterol treatment going. Patient has diffuse rails throughout all lung mcmahon. Occasional wheezes. Patient states that she did not believe she was ready to be discharged and was discharged to early. Patient has not had specific fevers or chills. - Related Data Home Medications Medication Instructions Recorded Confirmed Aclidinium [place] [Tudorza 1 puff IH BID 09/08/15 03/21/17 Pressair] Albuterol Sulfate [Proair Hfa] 2 puff IH Q4H PRN 09/08/15 03/21/17 Simvastatin [Zocor] 40 mg PO HS 09/08/15 03/21/17 Albuterol Neb [Proventil Neb] 2.5 mg IH Q4HR 07/05/16 03/21/17 Oxygen 4 l .ROUTE AD 12/05/16 03/21/17 predniSONE [PredniSONE] See Taper PO DAILY 03/21/17 03/21/17 Previous Rx's Medication Instructions Recorded Aspirin 325 mg PO DAILY #60 tablet 09/19/15 Diltiazem CD (24hr) [Cardizem CD] 360 mg PO DAILY #30 cap.er.24h 09/19/15 Metoprolol [Lopressor] 50 mg PO BID #60 tablet 09/19/15 Ipratropium/Albuterol Neb [Duoneb] 3 ml IH [id number] PRN inh 12/08/16 metFORMIN [Glucophage] 500 mg PO BIDWM #60 tablet 01/27/17 levoFLOXacin [Levaquin] 750 mg PO Q24H 3 Days #3 tablet 03/20/17 Budesonide/Formoterol 160/4.5 2 puff IH BIDR #1 hfa.aer.ad 03/21/17 [Symbicort 160/4.5] Furosemide [Lasix] 60 mg PO BID #45 tablet 03/21/17 Nicotine Patch [Nicoderm] 14 mg TD DAILY #30 patch.td24 03/21/17 Allergies Allergy/AdvReac Type Severity Reaction Status Date / Time Penicillins Allergy Rash Verified 03/21/17 21:50 Review of Systems: CONSTITUTIONAL: No weight loss, fever, chills, weakness or fatigue. HEENT: Eyes: No visual changes. Ears, Nose, Throat: No hearing loss, difficulty talking or unable to swallow. SKIN: No rash or itching. CARDIOVASCULAR: Chest tightness -swelling of the extremities RESPIRATORY: Shortness of breath GASTROINTESTINAL: No anorexia, nausea, vomiting or diarrhea. No abdominal pain or blood. GENITOURINARY: No burning on urination or hematuria. NEUROLOGICAL: No headache, dizziness, syncope, paralysis, ataxia, numbness or tingling in the extremities. No change in bowel or bladder control. MUSCULOSKELETAL: No muscle pain, back pain, joint pain or stiffness. Past Medical History - Past Medical History Medical history: Reports: arthritis, asthma, atrial fibrillation (Not on anticoagulation), CHF (Diastolic), COPD (Oxygen dependent using 4 L continuously ), diabetes (Not insulin-dependent), GERD, hyperlipidemia, hypertension, osteoporosis, valvular heart disease, other (Obstructive sleep apnea using CPAP at home, tobacco use, asthma, GERD, prior infestation with bedbugs) Surgical history: Reports: non-contributory, other Psychiatric history: Reports: no psych history, other - Social History Smoking Status: Current every day smoker Smokeless Tobacco Status: No Alcohol use: Reports: rarely Drug use: Reports: none Physical Exam General appearance: Respiratory distress, speaking in 2 syllables Eyes: anicteric sclerae, moist conjunctivae; PERRL HENT: Atraumatic; oropharynx clear with moist mucous membranes and no mucosal ulcerations Neck: Normal inspection; Trachea midline; FROM, supple Lungs: Diffuse rales with occasional wheezing in the anterior lung mcmahon CV: RRR, no MRGs Abdomen: Soft, non-tender; no rebound or gaurding Extremities: Significant swelling to lower extremities Skin: Normal temperature; no rash, ulcers or lesions Psych: Appropriate mood and affect Neuro: alert and alert; moving all extremities Course - Reevaluation(s) Reevaluation #1: Improvedafter initial BiPAP nitroglycerin and albuterol. Lasix held secondary to elevated BUN/creatinine ratio. She will be admitted for further evaluation and management. - Consultations Consultation #1: Discussed with hospitalist. Patient accepted for admission Vital Signs Respiratory Rate 30 03/21/17 21:40 O2 Sat by Pulse Oximetry 90 03/21/17 21:40 Temperature 97.9 F 03/22/17 01:20 Pulse Rate 91 03/22/17 01:20 Respiratory Rate 24 03/22/17 01:20 Blood Pressure 112/59 03/22/17 01:20 O2 Sat by Pulse Oximetry 95 03/22/17 01:20 Oxygen Delivery Oxygen Delivery Bipap Medical Decision Making - Medical Records Medical records reviewed: Yes I reviewed the patient's medical records. - Lab Data Lab results reviewed: Yes I reviewed the patient's lab results. Result diagrams: 03/21/17 22:27 03/21/17 22:27 Lab Results 03/21/17 03/21/17 03/21/17 Range/Units 22:27 22:27 22:27 WBC 14.0 H (4.3-11.1) K/mcL RBC 3.61 L (3.82-4.97) M/mcL Hgb 9.8 L (11.5-15.4) g/dL Hct 33.7 L (35.3-44.9) % MCV 93.4 (83.0-100.0) fL MCH 27.1 L (28.0-33.3) pg MCHC 29.1 L (31.6-35.5) g/dL RDW 21.3 H (11.5-14.5) % Plt Count 269 (140-400) K/mcL MPV 9.7 (9.4-12.4) fL Immature Gran % 3.6 (0-4) % Seg Neutrophils % 77.4 % Lymphocytes % 11.3 % Monocytes % 7.3 % Eosinophils % 0.1 % Basophils % 0.3 % Neutrophils # 10.8 H (1.6-8.9) K/mcL Lymphocytes # 1.6 (0.6-4.6) K/mcL Monocytes # 1.0 (0.0-1.3) K/mcL Eosinophils # 0.0 (0.0-0.6) K/mcL Basophils # 0.0 (0.0-0.2) K/mcL Nucleated RBCs/100 WBC 0.5 H (0) /100 WBC PT (9.4-12.1) Seconds INR ABG pH (7.32-7.45) pH Units ABG pCO2 (35-45) mmHg ABG pO2 (85-104) mmHg ABG HCO3 (21-27) mEq/L ABG Total CO2 (20-26) mEq/L ABG O2 Saturation (95-98) % ABG Base Excess (-2 to 3) mEq/L Sodium 143 (136-145) mEq/L Potassium 3.6 (3.5-4.5) mEq/L Chloride 95 L (98-109) mEq/L Carbon Dioxide 38 H (19-29) mEq/L BUN 29 H (7-20) mg/dL Creatinine 0.78 (0.57-1.11) mg/dL Est GFR ( Amer) > 60 (> 60) Est GFR (Non-Af Amer) > 60 (> 60) BUN/Creatinine Ratio 37 H (6-26) Glucose 314 H (70-99) mg/dL Calculated Osmolality 314 H (280-300) Calcium 9.0 (8.6-10.8) mg/dL Troponin I 0.01 (0-0.03) ng/mL B-Natriuretic Peptide (0-100) pg/mL Person Notif of Crit 03/21/17 03/21/17 03/21/17 Range/Units 22:27 22:27 22:39 WBC (4.3-11.1) K/mcL RBC (3.82-4.97) M/mcL Hgb (11.5-15.4) g/dL Hct (35.3-44.9) % MCV (83.0-100.0) fL MCH (28.0-33.3) pg MCHC (31.6-35.5) g/dL RDW (11.5-14.5) % Plt Count (140-400) K/mcL MPV (9.4-12.4) fL Immature Gran % (0-4) % Seg Neutrophils % % Lymphocytes % % Monocytes % % Eosinophils % % Basophils % % Neutrophils # (1.6-8.9) K/mcL Lymphocytes # (0.6-4.6) K/mcL Monocytes # (0.0-1.3) K/mcL Eosinophils # (0.0-0.6) K/mcL Basophils # (0.0-0.2) K/mcL Nucleated RBCs/100 WBC (0) /100 WBC PT 12.9 H (9.4-12.1) Seconds INR 1.2 ABG pH 7.38 (7.32-7.45) pH Units ABG pCO2 71 H* (35-45) mmHg ABG pO2 69 L (85-104) mmHg ABG HCO3 42 H (21-27) mEq/L ABG Total CO2 44 H (20-26) mEq/L ABG O2 Saturation 92 L (95-98) % ABG Base Excess 14 H (-2 to 3) mEq/L Sodium (136-145) mEq/L Potassium (3.5-4.5) mEq/L Chloride (98-109) mEq/L Carbon Dioxide (19-29) mEq/L BUN (7-20) mg/dL Creatinine (0.57-1.11) mg/dL Est GFR ( Amer) (> 60) Est GFR (Non-Af Amer) (> 60) BUN/Creatinine Ratio (6-26) Glucose (70-99) mg/dL Calculated Osmolality (280-300) Calcium (8.6-10.8) mg/dL Troponin I (0-0.03) ng/mL B-Natriuretic Peptide 495 H (0-100) pg/mL Person Notif of Ralph JORDAN - Radiology Data Radiology results reviewed: Yes I reviewed the patient's radiology results. - EKG Data EKG #1 EKG attestation: Yes I reviewed and interpreted this EKG. EKG results narrative: EKG shows atrial fibrillation with RVR. Ventricular rate of 122. QRS 91. QTC 363. No significant ST elevations or depressions. EKG with a rapid rate compared to previous of 03/13/17.
--- NOTE | 2017-03-21 21:54 | Emergency Department Note ---
START Narrative - START START: I examined this patient and my medical decision-making was reviewed with the Resident Physician. I agree with the documented findings, disposition and treatment plan as described except to the extent set forth below. 56 year old female presents to the ED via EMS for respiratory distress and was most recently admitted to the hospitla one week ago and discharged from the ED today. She had an increase in her oxygen requirement to 5LNC contnously. Errol was seen by EMS at 68% with oxygen supplementation and states that once she had a breathing treatment and placed on a NRB she was up to 93% although she has diffuse wheezing and posterior lower rales. We will place her on a bipap and lasix/nitro therapy and curently she is in afib rvr with rate of 132. She has a history of afib but it is typically rate controlled. We will admit to medicine after stablilxing patient.
[2017-03-21] MEDS ORDERED: *HR* Morphine 2 MG/ML SYRINGE IVP ONE (22:26)
[2017-03-21] MEDS ORDERED: Ondansetron 4 MG/2 ML VIAL IVP ONE (22:27)
[2017-03-21 22:38] LABS: Basophils % 0.3 %; Eosinophils % 0.1 %; Hematocrit 33.7 % (35.3-44.9); Hemoglobin 9.8 g/dL (11.5-15.4); Immature Granulocytes % 3.6 % (0-4); Lymphocytes # 1.6 K/mcL (0.6-4.6); Lymphocytes % 11.3 %; Mean Corpuscular HGB Conc 29.1 g/dL (31.6-35.5); Mean Corpuscular Hemoglobin 27.1 pg (28.0-33.3); Mean Corpuscular Volume 93.4 fL (83.0-100.0); Mean Platelet Volume 9.7 fL (9.4-12.4); Monocytes % 7.3 %; Nucleated Red Blood Cells 0.5 /100 WBC (0); Platelet Count 269 K/mcL (140-400); Red Blood Count 3.61 M/mcL (3.82-4.97); Red Cell Distribution Width 21.3 % (11.5-14.5); Segmented Neutrophils % 77.4 %
[2017-03-21 22:39] LABS: Neutrophils # 10.8 K/mcL (1.6-8.9)
[2017-03-21 22:41] LABS: INR 1.2; Prothrombin Time 12.9 Seconds (9.4-12.1)
[2017-03-21 22:48] LABS: ABG Base Excess 14 mEq/L (-2 to 3); ABG HCO3 42 mEq/L (21-27); ABG Oxygen Saturation 92 % (95-98); ABG PCO2 71 mmHg (35-45); ABG PH 7.38 pH Units (7.32-7.45); ABG PO2 69 mmHg (85-104); ABG TCO2 44 mEq/L (20-26)
[2017-03-21 22:50] LABS: BUN/Creatinine Ratio 37 (6-26); Blood Urea Nitrogen 29 mg/dL (7-20); Carbon Dioxide 38 mEq/L (19-29); Chloride 95 mEq/L (98-109); Glucose 314 mg/dL (70-99); Osmolality,Calculated 314 (280-300); Potassium 3.6 mEq/L (3.5-4.5); Sodium 143 mEq/L (136-145); eGFR For African Americans > 60 (> 60); eGFR For Non-African Americans > 60 (> 60)
--- NOTE | 2017-03-22 01:34 | Internal Med History&Physical ---
<Johnnie Mccann - Last Filed: 03/22/17 02:16> Date of Encounter: 03/22/17 Time of Encounter: 01:29 Assessment and Plan (1) Acute and chronic respiratory failure Current visit: Yes Status: Acute - Likely secondary to COPD exacerbation given history of present illness, physical exam findings - Other possible etiologies include CHF exacerbation and recent hospital discharge at this afternoon versus obesity hypoventilation syndrome versus infectious etiology - ABG in the emergency department showed respiratory acidosis with CO2 of 71 - Patient currently tolerating BiPAP without complaints - We will start methylprednisone 60 mg every 6 hours, Zithromax 500 mg daily - Increase her Lasix from 60 PO to 60 IV twice a day Qualifiers: Respiratory failure complication: hypoxia and hypercapnia Qualified Code(s) : J96.21 - Acute and chronic respiratory failure with hypoxia; J96.22 - Acute and chronic respiratory failure with hypercapnia; J96.22 - Acute and chronic respiratory failure with hypercapnia; J96.22 - Acute and chronic respiratory failure with hypercapnia (2) Acute exacerbation of chronic obstructive airways disease Current visit: Yes Status: Acute - Management and workup as above - Wheezing on physical exam with complaint of productive cough - Steroids, azithromycin, DuoNeb's (3) CHF (congestive heart failure) Current visit: Yes Status: Chronic - Chronic diastolic heart failure secondary to pulmonary hypertension - Multiple hospital admissions in the past, including most recently discharge of yesterday afternoon - BNP elevated at 400s. Was 500s last week - We will increase dose of Lasix, however or likely etiology of COPD exacerbation Qualifiers: Congestive heart failure type: diastolic Congestive heart failure chronicity: acute on chronic Qualified Code(s): I50.33 - Acute on chronic diastolic (congestive) heart failure (4) Atrial fibrillation Current visit: Yes Status: Chronic - EKG showing atrial fibrillation. Patient was initially tachycardic on presentation, however with improved oxygenation heart rate has returned to rate controlled - Continue home beta thad - Patient is not on anticoagulation Qualifiers: Atrial fibrillation type: chronic Qualified Code(s): I48.2 - Chronic atrial fibrillation (5) Tobacco use disorder Current visit: Yes Status: Chronic - Patient states that she has quit smoking as of this afternoon - Patient encouraged to continue this - Nicotine patch ordered (6) Morbid obesity Current visit: Yes Status: Chronic Morbid obesity contributing to multiple health conditions - Patient highly encouraged to lose weight as outpatient through diet and exercise (7) TYE (obstructive sleep apnea) Current visit: Yes Status: Chronic - Clinically sleep apnea versus obesity hypoventilation syndrome and pulmonary hypertension which leads to her diastolic heart failure - Patient will be kept on BiPAP tonight (8) Diabetes mellitus Current visit: Yes Status: Chronic - A1c of 6.9% in January - blood glucose of 314 emergency department - Likely moderately elevated in the settings of prednisone use - Cover with sliding insulin scale and monitor with continued steroid use - Diabetic diet Qualifiers: Diabetes mellitus type: type 2 Diabetes mellitus complication status: with hyperglycemia Diabetes mellitus intermission coordinator insulin use: without fci use Qualified Code(s): E11.65 - Type 2 diabetes mellitus with hyperglycemia (9) DVT prophylaxis Current visit: Yes Status: Acute - Heparin 5000 units every 8 hours Internal Medicine - H&P: HPI Chief complaint: Shortness of breath Admitted From: Emergency Dept Plans for Post Hospital Care: Home History of present illness: Ms. Kyle is a 56 year old female was recently discharged from [facility] this afternoon to being treated for acute on chronic respiratory failure secondary to likely CHF exacerbation with underlying COPD. She states that she was discharged home today and when she arrived home she continued to feel short of breath despite using her 5 L of oxygen via nasal cannula. She denies symptoms of fevers, chest pain, orthopnea, nausea, vomiting, abdominal pain, lower showing swelling other than baseline. She does admit to a productive cough with yellow thin to thick sputum that is chronically present as well as some palpitations. She states she was short of breath at rest and with exertion. She was unable to fill her prescriptions of Levaquin or prednisone upon discharge. She was reportedly saturating in the 70s when EMS arrived. In the emergency department, where signs significant for pulse 132, respiratory rate 36, saturating 90% oxygen on 3 L nasal cannula. She was placed on BiPAP. Labs were significant for a white blood cell count of 14, mild anemia, respiratory acidosis with partial metabolic alkalosis compensation on ABG, glucose of 314, BNP of 495. Chest x-ray done showed interstitial edema or possibly airway inflammation such as bronchitis. Past Med Surg Social Fam HX - Past Medical History Medical history: arthritis, asthma, atrial fibrillation, CHF, COPD, diabetes, GERD, hyperlipidemia, hypertension, osteoporosis, valvular heart disease, other Psychiatric history: no psych history - Past Surgical History Surgical History: non-contributory, other - Social History Smoking Status: Current every day smoker Smokeless Tobacco Status: No Alcohol use: rarely Drug use: none - Family History Mother Living Status: Hx Family Cardiac Disorders: Yes Hx Family Endocrine Disorder: Yes (DM) Father Living Status: Hx Family Respiratory Disorders: Yes (Asthma, COPD, Emphysema) Internal Medicine - H&P: Meds Aclidinium [place] [Tudorza Pressair] 1 puff IH BID 09/08/15 [History] Albuterol Sulfate [Proair Hfa] 2 puff IH Q4H PRN 09/08/15 [History] Simvastatin [Zocor] 40 mg PO HS 09/08/15 [History] Aspirin 325 mg PO DAILY #60 tablet 09/19/15 [Rx] Diltiazem CD (24hr) [Cardizem CD] 360 mg PO DAILY #30 cap.er.24h 09/19/15 [Rx] Metoprolol [Lopressor] 50 mg PO BID #60 tablet 09/19/15 [Rx] Albuterol Neb [Proventil Neb] 2.5 mg IH Q4HR 07/05/16 [History] Oxygen 4 l .ROUTE AD 12/05/16 [History] Ipratropium/Albuterol Neb [Duoneb] 3 ml IH [id number] PRN inh 12/08/16 [Rx] metFORMIN [Glucophage] 500 mg PO BIDWM #60 tablet 01/27/17 [Rx] levoFLOXacin [Levaquin] 750 mg PO Q24H 3 Days #3 tablet 03/20/17 [Rx] Budesonide/Formoterol 160/4.5 [Symbicort 160/4.5] 2 puff IH BIDR #1 hfa.aer.ad 03/21/17 [Rx] Furosemide [Lasix] 60 mg PO BID #45 tablet 03/21/17 [Rx] Nicotine Patch [Nicoderm] 14 mg TD DAILY #30 patch.td24 03/21/17 [Rx] predniSONE [PredniSONE] See Taper PO DAILY 03/21/17 [History] 3 Allergy/AdvReac Type Severity Reaction Status Date / Time Penicillins Allergy Rash Verified 03/21/17 21:50 All Systems PM: A 10-system review of systems was performed and is negative for pertinent findings except as documented above in the HPI. - Constitutional Constitutional: no anorexia, no chills, no excessive sweating, no fatigue, no fever(s) - Cardiovascular Cardiovascular ROS IM: dyspnea, dyspnea on exertion, edema, palpitations, no chest pain, no diaphoresis, no lightheadedness, no orthopnea - Respiratory Respiratory: cough, dyspnea, dyspnea on exertion, no excessive phlegm production , no change in phlegm color - Gastrointestinal Gastrointestinal: no abdominal pain, no constipation, no diarrhea, no nausea, no vomiting - Genitourinary Genitourinary: no dysuria - Neurological Neurological ROS: no numbness, no tingling, no weakness - Constitutional Vitals: Temp Pulse Resp BP Pulse Ox 97.9 F 91 24 112/59 95 03/22/17 01:20 03/22/17 01:20 03/22/17 01:20 03/22/17 01:20 03/22/17 01:20 Exam: Gen.: Vitals noted. No acute distress. AAOx3. Resting comfortably on BiPAP. Speaking in full sentances. HEENT: PERRL, oropharynx clear, Normocephalic, atraumatic, MMM Cardiac: Irregularly irregular rhythm, no murmur, +S1/S2 Pulmonary: Decreased chest exapansion, wheezes on left. Decreased breath sounds at bases, equal chest expansion Abdomen: soft, nontender, BS noted, no guarding MSK: ROM intact, no joint swelling noted Extremities: b/l LE edema, 1+ pitting, nontender calf, no cyanosis or clubbing Neuro: A&Ox3, moves all extremities, no focal deficits Psych: Appropriate mood and behavior Internal Med - H&P Results - Labs CBC & Chem 7: 03/21/17 22:27 03/21/17 22:27 <Cony Barbour - Last Filed: 03/22/17 04:17> Date of Encounter: 03/22/17 Internal Medicine - H&P: HPI History of present illness: Ms. Kyle is a 56 year old female All Systems PM: A 10-system review of systems was performed and is negative for pertinent findings except as documented above in the HPI. - Constitutional Vitals: Temp Pulse Resp BP Pulse Ox 97.9 F 91 24 112/59 95 03/22/17 01:20 03/22/17 01:20 03/22/17 01:20 03/22/17 01:20 03/22/17 01:20 Internal Med - H&P Results - Labs CBC & Chem 7: 03/21/17 22:27 03/21/17 22:27 - Attending Attestation I have seen and examined the patient independently. I have discussed with resident physician Dr. Mccann regarding the management plan. Agree with the documentation. Pt has Hx of COPD, present with increased SOB with wheezing, consider COPD exacerbation. Pt also has A Fib on lasix at home, also consider CHF exacerbation as there is increased BNP (especially on this obese pt) and will place her iv lasix, fluid restriction, strict I/O. Place pt on BipAP for COPD/ CHF exacerbation, TYE, obesity hypoventilation syndrome.
[2017-03-22] MEDS ORDERED: Ondansetron 4 MG/2 ML VIAL IVP PRN (01:40)
[2017-03-22] MEDS ORDERED: Naloxone 0.4 MG/ML INJ IVP PRN (01:40)
[2017-03-22] MEDS ORDERED: Acetaminophen 325 MG TABLET PO PRN (01:40)
[2017-03-22] MEDS ORDERED: Ipratropium/Albuterol Neb 3 ML IH PRN (01:42)
[2017-03-22] MEDS ORDERED: *HR* Dextrose 50 % in Water (Syg) 50 ML SYRINGE IVP PRN (01:43)
[2017-03-22] MEDS ORDERED: Dextrose Gel 15 GM PO PRN ×2 (01:43)
[2017-03-22] MEDS ORDERED: D5% in Water 1,000 ML IVC PRN (01:43)
[2017-03-22] MEDS: Ketoconazole 2% CRM 15 GM TUBE TP SCH ×3 (02:49→21:12)
[2017-03-22] MEDS ORDERED: Albuterol 2.5 MG/3 ML NEBULIZER IH SCH (04:00)
[2017-03-22 04:43] LABS: Hemoglobin 9.3 g/dL (11.5-15.4); Monocytes % 1.9 %
[2017-03-22 04:44] LABS: Basophils % 0.2 %; Hematocrit 32.8 % (35.3-44.9); Immature Granulocytes % 3.8 % (0-4); Lymphocytes # 0.6 K/mcL (0.6-4.6); Mean Corpuscular HGB Conc 28.4 g/dL (31.6-35.5); Mean Corpuscular Hemoglobin 26.3 pg (28.0-33.3); Mean Corpuscular Volume 92.9 fL (83.0-100.0); Mean Platelet Volume 10.5 fL (9.4-12.4); Monocytes # 0.2 K/mcL (0.0-1.3); Neutrophils # 11.1 K/mcL (1.6-8.9); Nucleated Red Blood Cells 0.4 /100 WBC (0); Platelet Count 266 K/mcL (140-400); Red Blood Count 3.53 M/mcL (3.82-4.97); Red Cell Distribution Width 21.2 % (11.5-14.5); Segmented Neutrophils % 89.1 %
[2017-03-22 05:02] LABS: BUN/Creatinine Ratio 36 (6-26); Blood Urea Nitrogen 25 mg/dL (7-20); Calcium 8.6 mg/dL (8.6-10.8); Chloride 97 mEq/L (98-109); Glucose 273 mg/dL (70-99); Osmolality,Calculated 314 (280-300); Potassium 4.3 mEq/L (3.5-4.5); Sodium 145 mEq/L (136-145); eGFR For African Americans > 60 (> 60); eGFR For Non-African Americans > 60 (> 60)
[2017-03-22 05:04] LABS: Carbon Dioxide 40 mEq/L (19-29)
[2017-03-22] MEDS: *HR* Heparin 5,000 UNIT/ML VIAL SQ SCH ×3 (05:17→21:12)
[2017-03-22 05:25] LABS: Hypochromasia Present (Not Present); Platelet Estimate Normal (Normal)
[2017-03-22] MEDS: Ipratropium/Albuterol Neb 3 ML IH SCH ×3 (07:43→22:46)
[2017-03-22] MEDS: Budesonide/Formoterol 160/4.5 MDI IH SCH ×2 (07:43→22:46)
[2017-03-22] MEDS: Insulin LISPRO 300 UNITS/3 ML VIAL SQ SCH ×4 (08:30→21:13)
[2017-03-22] MEDS: Diltiazem CD (24hr) 180 MG CAPSULE PO SCH (08:30)
[2017-03-22] MEDS: Aspirin 325 MG TABLET PO SCH (08:30)
[2017-03-22] MEDS: Nicotine 14 MG PATCH.TD24 TD SCH (08:31)
[2017-03-22] MEDS: methylPREDNISolone 125 MG/2 ML VIAL IVP SCH ×3 (08:31→23:14)
[2017-03-22] MEDS ORDERED: Furosemide 40 MG TABLET PO SCH (09:00)
[2017-03-22] MEDS ORDERED: SODIUM CHLORIDE 0.9% IVPB SCH (09:00)
[2017-03-22] MEDS ORDERED: Azithromycin 250 MG TABLET PO SCH (09:00)
[2017-03-22] MEDS ORDERED: FUROSEMIDE IVPB SCH (09:00)
[2017-03-22] MEDS: levoFLOXacin 750 MG TABLET PO SCH (11:06)
[2017-03-22] MEDS: Furosemide 40 MG/4 ML VIAL IVP SCH ×2 (11:06→16:42)
--- NOTE | 2017-03-22 13:11 | Electrocardiograph Report ---
[address] [address] Test Date: 2017-03-21 Pat Name: Shanda Kyle Department: 104 Room: 2A26 Gender: F Material Manager: KULWANT : 1960 Requested By: Nathan Nguyen Order Number: [id number] Reading MD: Travis Pacheco MD Measurements Intervals [place] Rate: 122 P: MN: 0 QRS: 30 QRSD: 91 T: 17 QT: 290 QTc: 363 Interpretive Statements ATRIAL FIBRILLATION WITH RAPID VENTRICULAR RESPONSE LOW QRS VOLTAGE IN PRECORDIAL LEADS Electronically Signed On 03-22-2017 13:10:25 EST by Travis Pacheco MD
--- NOTE | 2017-03-22 13:14 | Electrocardiograph Report ---
[address] [place], [place] [address] Test Date: 2017-03-22 Pat Name: Shanda Kyle Department: 112 Room: 2A26 Gender: F Relay Operator: : 1960 Requested By: Cony Barbour Order Number: [id number] Reading MD: Travis Pacheco MD Measurements Intervals [place] Rate: 94 P: NV: 0 QRS: 39 QRSD: 87 T: 12 QT: 343 QTc: 395 Interpretive Statements ATRIAL FIBRILLATION LOW QRS VOLTAGE IN PRECORDIAL LEADS Electronically Signed On 03-22-2017 13:12:55 EST by Travis Pacheco MD
--- NOTE | 2017-03-22 16:16 | Internal Med Progress Note ---
<Ulises Valera - Last Filed: 03/22/17 18:21> Date of Encounter: 03/22/17 Time of Encounter: 11:00 - Assessment and plan (1) Acute respiratory failure with hypoxia Current Visit: Yes Status: Acute Assessment and plan: Very recent readmit. Last admission's discharge disposition sought SNF/ECF; no placement x3 days. Discharged on home health, pt returned and admitted before end of day. Respiratory acidosis on ABG, retaining CO2. Tolerating Bipap. Methylprednisone 60mg q6hr, on Zithromax. Lasix 60mg IV. Strict I's and O's. (2) CHF (congestive heart failure) Current Visit: Yes Status: Chronic Assessment and plan: Contributing in part to patient's respiratory failure, BNP >400 on admission Will diurese on Lasix 60mg IV. Recent echo 08/05/16 shows LVEF +65%; severe pulmonary hypertension, indeterminate diastolic dysfunction. Qualifiers: Congestive heart failure type: diastolic Congestive heart failure chronicity: acute on chronic Qualified Code(s): I50.33 - Acute on chronic diastolic (congestive) heart failure (3) Atrial fibrillation Current Visit: Yes Status: Chronic Assessment and plan: On ASA, and rate control; Coumadin considered, however, pt hx of non-compliance with coumadin clinic. Continue to monitor. Qualifiers: Atrial fibrillation type: chronic Qualified Code(s): I48.2 - Chronic atrial fibrillation (4) Non-insulin dependent type 2 diabetes mellitus Current Visit: No Status: Chronic Assessment and plan: A1c of 6.9% 01/25/17 On SSI, will continue to monitor closely, given steroid use (5) TYE (obstructive sleep apnea) Current Visit: Yes Status: Chronic Assessment and plan: Uses 5L cpap at home Bipap at bedside tonight. (6) Tobacco use disorder Current Visit: Yes Status: Chronic Assessment and plan: Was given nicotine patch 14mg throughout hospital course 1 week ago, tolerated smoking cessation with mild cravings. However, on discharge, pt states she smoked a cigarette (had been discharged with Rx and instructions to use nicotine patch), and within moments became short of breath. (7) DVT prophylaxis Current Visit: Yes Status: Acute Assessment and plan: Heparin 5000U sq q8 for DVT prophylaxis - Subjective Interval history: Ms. Kyle, past medical history of COPD, CHF, morbid obesity, non-insulin dependent DM2, readmit after a few hours discharge yesterday. Pt was saturating in COPD low 90s range prior to discharge, tolerating 5L.. Pt endorses she became short of breath after smoking a cigarette when she got home. Currently saturating in mid-80s on 5L NC, bipap at bedside. Not yet ready to wean off of bipap. Pt denies chest pain, is relatively comfortable on 5L NC but will likely need bipap throughout the night. - Constitutional Vitals: Temp Pulse Resp BP Pulse Ox 98.7 F 84 26 116/70 96 03/22/17 11:23 03/22/17 11:23 03/22/17 11:23 03/22/17 11:23 03/22/17 11:23 General appearance: Present: A&O X 3, morbidly obese - Head Head exam: Present: atraumatic - Neck Neck exam general surgery: Present: full ROM. Absent: lymphadenopathy - Respiratory Respiratory exam: Present: decreased breath sounds, rhonchi (L on expiration, persistent) - Cardiovascular Cardiovascular exam: Present: irregular rhythm, +S1, +S2 - GI/Abdominal GI/Abdominal exam: Present: no peritoneal signs. Absent: tenderness - Extremities Exam Extremities exam: Present: tenderness, warm - Skin Skin exam: Present: abrasion (old, well healing, bilateral forearms) Internal Medicine: Result - Labs CBC & Chem 7: 03/22/17 04:09 03/22/17 04:09 - ABG Interpretation ABG results: ABG ABG pH 7.38 pH Units (7.32-7.45) 03/21/17 22:39 ABG pCO2 71 mmHg (35-45) H* 03/21/17 22:39 ABG pO2 69 mmHg (85-104) L 03/21/17 22:39 ABG O2 Saturation 92 % (95-98) L 03/21/17 22:39 PT/INR, D-dimer PT 12.9 Seconds (9.4-12.1) H 03/21/17 22:27 Consult Discharge Plan - Plan Referrals: Aleksey Huggins DO [Primary Care Provider] - <Al Garcia - Last Filed: 03/22/17 18:58> Date of Encounter: 03/22/17 - Constitutional Vitals: Temp Pulse Resp BP Pulse Ox 98.4 F 106 17 111/79 90 03/22/17 16:28 03/22/17 16:28 03/22/17 16:28 03/22/17 16:28 03/22/17 16:28 Internal Medicine: Result - Labs CBC & Chem 7: 03/22/17 04:09 03/22/17 04:09 - ABG Interpretation ABG results: ABG ABG pH 7.38 pH Units (7.32-7.45) 03/21/17 22:39 ABG pCO2 71 mmHg (35-45) H* 03/21/17 22:39 ABG pO2 69 mmHg (85-104) L 03/21/17 22:39 ABG O2 Saturation 92 % (95-98) L 03/21/17 22:39 PT/INR, D-dimer PT 12.9 Seconds (9.4-12.1) H 03/21/17 22:27 - Attending Attestation I conducted a face to face diagnostic evaluation of this patient and my medical decision-making was reviewed with the Resident Physician, Dr. Ulises Valera. I agree with the documented findings, disposition and treatment plan as described except to the extent set forth below: Patient was discharged yesterday. She admits to smoking 1 cigarette when she went home. She states that she got short of breath and called an ambulance. On exam she is in no acute distress. Lungs are clear with good breath sounds bilaterally. Heart is regular. Plan: I encouraged smoking cessation. We will start discharge planning to subacute rehabilitation since the patient does not have the resources necessary to care for herself at home given the degree of disability secondary to COPD and CHF and morbid obesity.
[2017-03-22] MEDS ORDERED: Melatonin 3 MG TABLET PO ONE (21:56)
[2017-03-22] MEDS: *HR* HYDROcodone/Acet 5/325 mg TABLET PO PRN (23:26)
[2017-03-23] MEDS: Ipratropium/Albuterol Neb 3 ML IH SCH ×4 (03:51→22:46)
[2017-03-23] MEDS: *HR* Heparin 5,000 UNIT/ML VIAL SQ SCH ×3 (06:16→22:26)
[2017-03-23 08:00] LABS: BUN/Creatinine Ratio 40 (6-26); Blood Urea Nitrogen 30 mg/dL (7-20); Calcium 8.9 mg/dL (8.6-10.8); Chloride 94 mEq/L (98-109); Glucose 294 mg/dL (70-99); Osmolality,Calculated 313 (280-300); Potassium 4.6 mEq/L (3.5-4.5); Sodium 143 mEq/L (136-145); eGFR For African Americans > 60 (> 60); eGFR For Non-African Americans > 60 (> 60)
[2017-03-23 08:01] LABS: Carbon Dioxide 44 mEq/L (19-29)
[2017-03-23 08:26] LABS: Hematocrit 30.8 % (35.3-44.9); Hemoglobin 9.2 g/dL (11.5-15.4); Mean Corpuscular HGB Conc 29.9 g/dL (31.6-35.5); Mean Corpuscular Hemoglobin 26.9 pg (28.0-33.3); Mean Corpuscular Volume 90.1 fL (83.0-100.0); Mean Platelet Volume 11.4 fL (9.4-12.4); Nucleated Red Blood Cells 0.1 /100 WBC (0); Platelet Count 256 K/mcL (140-400); Red Blood Count 3.42 M/mcL (3.82-4.97); Red Cell Distribution Width 21.7 % (11.5-14.5)
[2017-03-23] MEDS: Insulin LISPRO 300 UNITS/3 ML VIAL SQ SCH ×4 (08:33→22:27)
[2017-03-23] MEDS: Furosemide 40 MG/4 ML VIAL IVP SCH ×2 (08:34→17:38)
[2017-03-23] MEDS: methylPREDNISolone 125 MG/2 ML VIAL IVP SCH ×2 (08:35→17:38)
[2017-03-23 08:59] LABS: Lymphocytes # 1.4 K/mcL (0.6-4.6)
[2017-03-23 09:00] LABS: Macrocytosis Present (Not Present); Neutrophils # 11.9 K/mcL (1.6-8.9); Platelet Estimate Normal (Normal); Polychromasia 1+ (Not Present); Smudge Cells Present (Not Present)
[2017-03-23] MEDS: Budesonide/Formoterol 160/4.5 MDI IH SCH ×2 (10:28→22:46)
[2017-03-23] MEDS: Nicotine 14 MG PATCH.TD24 TD SCH (10:46)
[2017-03-23] MEDS: Ketoconazole 2% CRM 15 GM TUBE TP SCH ×2 (10:47→22:26)
[2017-03-23] MEDS: levoFLOXacin 750 MG TABLET PO SCH (10:48)
[2017-03-23] MEDS: Aspirin 325 MG TABLET PO SCH (10:48)
[2017-03-23] MEDS: Diltiazem CD (24hr) 180 MG CAPSULE PO SCH (10:48)
--- NOTE | 2017-03-23 17:02 | Internal Med Progress Note ---
Date of Encounter: 03/23/17 Time of Encounter: 16:57 - Assessment and plan (1) Acute respiratory failure with hypoxia and hypercapnia Current Visit: No Status: Acute Assessment and plan: BiPAP PRN during day time and continuous at night time (2) Acute exacerbation of chronic obstructive airways disease Current Visit: Yes Status: Acute Assessment and plan: Cont IV steroids + Broncho dilators Cont O2 BiPAP PRN during day time and continuous at night time (3) Bronchitis Current Visit: No Status: Acute Assessment and plan: mostly bacterial cont empirical abx Levofloxacin (4) Acute on chronic diastolic CHF (congestive heart failure) Current Visit: No Status: Acute Assessment and plan: cont aggressive IV diuresis cont ASA + BB + Statin (5) Tobacco abuse Current Visit: No Status: Chronic Assessment and plan: counseled to quit on nicotine patch (6) Diabetes mellitus Current Visit: Yes Status: Chronic Assessment and plan: on ISS Qualifiers: Diabetes mellitus type: type 2 Diabetes mellitus complication status: with hyperglycemia 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 Mccormick is a 56 y/o F with known PMH of Morbid obese, HTN, Diastolic CHF, chronic hypoxic resp failure on 5 lit consuelo eo2 dependent, chronic hypaercapneic resp failure, uses BiPAP at home , who has multiple hospitalization almost every month here with COPD exacerbation , hypoventilation syndrome now she presented to ER 2 days ago right after she d/c home from hospital. Pt did mention she did have severe SOB and DALE initially which improved now. However she does not think she is base line yet. Denied any CP. - Constitutional Vitals: Temp Pulse Resp BP Pulse Ox 99.0 F 84 18 114/70 97 03/23/17 16:12 03/23/17 16:12 03/23/17 16:12 03/23/17 16:12 03/23/17 16:12 General appearance: Present: A&O X 3, morbidly obese, answers questions appropriately - Head Head exam: Present: atraumatic, normal inspection - Respiratory Respiratory exam: Present: decreased breath sounds, wheezes (moderate). Absent : rales, respiratory distress, rhonchi - Cardiovascular Cardiovascular exam: Present: RRR, +S1, +S2. Absent: systolic murmur - GI/Abdominal GI/Abdominal exam: Present: distended, normal bowel sounds, soft. Absent: rebound, rigid, tenderness - Extremities Exam Extremities exam: Present: pedal edema (2+). Absent: calf tenderness, tenderness - Back Exam Back exam: Absent: CVA tenderness (L), CVA tenderness (R) - Psychiatric Psychiatric exam: Present: normal affect, normal mood Internal Medicine: Result - Labs CBC & Chem 7: 03/23/17 07:18 03/23/17 07:18 Labs: Short CBC 03/23/17 Range/Units 07:18 WBC 13.5 H (4.3-11.1) K/mcL Hgb 9.2 L (11.5-15.4) g/dL Hct 30.8 L (35.3-44.9) % Plt Count 256 (140-400) K/mcL Neutrophils # 11.9 H (1.6-8.9) K/mcL BMP 03/23/17 07:18 Sodium 143 Potassium 4.6 H Chloride 94 L Carbon Dioxide 44 H* BUN 30 H Creatinine 0.75 Glucose 294 H Calcium 8.9 - ABG Interpretation ABG results: ABG ABG pH 7.38 pH Units (7.32-7.45) 03/21/17 22:39 ABG pCO2 71 mmHg (35-45) H* 03/21/17 22:39 ABG pO2 69 mmHg (85-104) L 03/21/17 22:39 ABG O2 Saturation 92 % (95-98) L 03/21/17 22:39 PT/INR, D-dimer PT 12.9 Seconds (9.4-12.1) H 03/21/17 22:27 Consult Discharge Plan - Plan Referrals: Aleksey Huggins DO [Primary Care Provider] - (WEB REQUEST SENT ON 03/23/17)
[2017-03-23] MEDS: *HR* HYDROcodone/Acet 5/325 mg TABLET PO PRN (22:26)
[2017-03-23] MEDS ORDERED: Melatonin 3 MG TABLET PO ONE (23:54)
[2017-03-24] MEDS: methylPREDNISolone 125 MG/2 ML VIAL IVP SCH ×2 (00:04→09:27)
[2017-03-24] MEDS: Ipratropium/Albuterol Neb 3 ML IH SCH ×3 (03:59→15:21)
[2017-03-24 04:29] LABS: Hematocrit 31.4 % (35.3-44.9); Hemoglobin 9.1 g/dL (11.5-15.4); Mean Corpuscular Hemoglobin 26.6 pg (28.0-33.3); Mean Corpuscular Volume 91.8 fL (83.0-100.0); Mean Platelet Volume 10.5 fL (9.4-12.4); Nucleated Red Blood Cells 0.4 /100 WBC (0); Platelet Count 279 K/mcL (140-400); Red Blood Count 3.42 M/mcL (3.82-4.97); Red Cell Distribution Width 21.7 % (11.5-14.5)
[2017-03-24 04:43] LABS: BUN/Creatinine Ratio 43 (6-26); Blood Urea Nitrogen 32 mg/dL (7-20); Calcium 8.7 mg/dL (8.6-10.8); Chloride 93 mEq/L (98-109); Glucose 293 mg/dL (70-99); Osmolality,Calculated 314 (280-300); Potassium 4.1 mEq/L (3.5-4.5); Sodium 143 mEq/L (136-145); eGFR For African Americans > 60 (> 60); eGFR For Non-African Americans > 60 (> 60)
[2017-03-24 04:45] LABS: Carbon Dioxide 40 mEq/L (19-29)
[2017-03-24 05:02] LABS: Anisocytosis 2+ (Not Present); Hypochromasia Present (Not Present); Lymphocytes # 1.6 K/mcL (0.6-4.6); Macrocytosis Present (Not Present); Microcytosis Present (Not Present); Monocytes # 0.3 K/mcL (0.0-1.3); Neutrophils # 14.3 K/mcL (1.6-8.9); Platelet Estimate Normal (Normal); Polychromasia 1+ (Not Present); Reactive Lymphocytes Present (Not Present)
[2017-03-24] MEDS: *HR* Heparin 5,000 UNIT/ML VIAL SQ SCH ×3 (05:35→20:11)
[2017-03-24] MEDS: Furosemide 40 MG/4 ML VIAL IVP SCH (09:28)
[2017-03-24] MEDS: Diltiazem CD (24hr) 180 MG CAPSULE PO SCH (09:28)
[2017-03-24] MEDS: levoFLOXacin 750 MG TABLET PO SCH (09:28)
[2017-03-24] MEDS: Insulin LISPRO 300 UNITS/3 ML VIAL SQ SCH ×4 (09:29→20:11)
[2017-03-24] MEDS: Nicotine 14 MG PATCH.TD24 TD SCH (09:29)
[2017-03-24] MEDS: Aspirin 325 MG TABLET PO SCH (09:29)
[2017-03-24] MEDS: Budesonide/Formoterol 160/4.5 MDI IH SCH (10:32)
[2017-03-24] MEDS: Ketoconazole 2% CRM 15 GM TUBE TP SCH ×2 (13:07→20:11)
--- NOTE | 2017-03-24 15:25 | Internal Med Progress Note ---
Date of Encounter: 03/24/17 Time of Encounter: 15:23 - Assessment and plan (1) Acute respiratory failure with hypoxia and hypercapnia Current Visit: No Status: Acute Assessment and plan: BiPAP PRN during day time and continuous at night time Cont duoneb and Steroids Pt does use 5 lit O2 at home..currently on 5 lit here (2) Acute exacerbation of chronic obstructive airways disease Current Visit: Yes Status: Acute Assessment and plan: Start tapering IV steroids + Broncho dilators Cont O2 BiPAP PRN during day time and continuous at night time (3) Bronchitis Current Visit: No Status: Acute Assessment and plan: mostly bacterial cont empirical abx Levofloxacin (4) Acute on chronic diastolic CHF (congestive heart failure) Current Visit: No Status: Acute Assessment and plan: cont aggressive IV diuresis cont ASA + BB + Statin (5) Tobacco abuse Current Visit: No Status: Chronic Assessment and plan: counseled to quit on nicotine patch (6) Diabetes mellitus Current Visit: Yes Status: Chronic Assessment and plan: on ISS Qualifiers: Diabetes mellitus type: type 2 Diabetes mellitus complication status: with hyperglycemia Diabetes mellitus prison insulin use: without 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 Mccormick is a 56 y/o F with known PMH of Morbid obese, HTN, Diastolic CHF, chronic hypoxic resp failure on 5 lit consuelo eo2 dependent, chronic hypaercapneic resp failure, uses BiPAP at home , who has multiple hospitalization almost every month here with COPD exacerbation , hypoventilation syndrome now she presented to ER 2 days ago right after she d/c home from hospital. Pt did mention she did have severe SOB and DALE upon admission. Today she feels little better. Still c/o SOB and DALE.. Denied any CP. - Constitutional Vitals: Temp Pulse Resp BP Pulse Ox 98.5 F 90 22 123/73 92 03/24/17 11:15 03/24/17 11:15 03/24/17 15:21 03/24/17 11:15 03/24/17 15:21 General appearance: Present: A&O X 3, morbidly obese, answers questions appropriately - Head Head exam: Present: atraumatic, normal inspection - Neck Neck exam general surgery: Present: supple - Respiratory Respiratory exam: Present: decreased breath sounds, wheezes (moderate). Absent : rales, respiratory distress, rhonchi - Cardiovascular Cardiovascular exam: Present: RRR, +S1, +S2. Absent: systolic murmur, tachycardia - GI/Abdominal GI/Abdominal exam: Present: normal bowel sounds, soft. Absent: rebound, rigid, tenderness - Extremities Exam Extremities exam: Present: pedal edema (2+). Absent: calf tenderness, tenderness - Back Exam Back exam: Absent: CVA tenderness (L), CVA tenderness (R) - Neurological Exam Neurological exam: Present: alert, oriented X3 - Psychiatric Psychiatric exam: Present: normal affect, normal mood Internal Medicine: Result - Labs CBC & Chem 7: 03/24/17 03:38 03/24/17 03:38 Labs: Short CBC 03/24/17 Range/Units 03:38 WBC 16.3 H (4.3-11.1) K/mcL Hgb 9.1 L (11.5-15.4) g/dL Hct 31.4 L (35.3-44.9) % Plt Count 279 (140-400) K/mcL Neutrophils # 14.3 H (1.6-8.9) K/mcL BMP 03/24/17 03:38 Sodium 143 Potassium 4.1 Chloride 93 L Carbon Dioxide 40 H* BUN 32 H Creatinine 0.74 Glucose 293 H Calcium 8.7 - ABG Interpretation ABG results: ABG ABG pH 7.38 pH Units (7.32-7.45) 03/21/17 22:39 ABG pCO2 71 mmHg (35-45) H* 03/21/17 22:39 ABG pO2 69 mmHg (85-104) L 03/21/17 22:39 ABG O2 Saturation 92 % (95-98) L 03/21/17 22:39 PT/INR, D-dimer PT 12.9 Seconds (9.4-12.1) H 03/21/17 22:27 Consult Discharge Plan - Plan Referrals: Aleksey Huggins DO [Primary Care Provider] - (WEB REQUEST SENT ON 03/23/17)
[2017-03-24 16:11] VITALS: BP 112/74
--- NOTE | 2017-03-24 16:48 | Discharge Summary ---
Date of Encounter: 03/24/17 Time of Encounter: 16:42 - Discharge Diagnosis (1) Acute respiratory failure with hypoxia and hypercapnia Priority: Primary Status: Acute (2) Acute exacerbation of chronic obstructive airways disease Priority: Primary Status: Acute (3) Bronchitis Priority: Secondary Status: Acute (4) Acute on chronic diastolic CHF (congestive heart failure) Priority: Secondary Status: Acute (5) Tobacco abuse Priority: Secondary Status: Chronic (6) Diabetes mellitus Priority: Secondary Status: Chronic Qualifiers: Diabetes mellitus type: type 2 Diabetes mellitus complication status: with hyperglycemia 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: without shelter use Qualified Code(s): E11.65 - Type 2 diabetes mellitus with hyperglycemia (7) Obesity hypoventilation syndrome Priority: Secondary Status: Chronic (8) Morbid obesity with BMI of 60.0-69.9, adult Priority: Secondary Status: Chronic - Discharge Medications Prescriptions: HYDROcodone/Acet 5/325 mg [[place] 5-325 mg] 1 tab PO Q6HR PRN #20 tablet PRN Reason: Moderate Pain (4-6) predniSONE [PredniSONE] 40 mg PO BIDWM #18 tablet Home Medications: Aclidinium [place] [Tudorza Pressair] 1 puff IH BID 09/08/15 [History] Albuterol Sulfate [Proair Hfa] 2 puff IH Q4H PRN 09/08/15 [History] Simvastatin [Zocor] 40 mg PO HS 09/08/15 [History] Aspirin 325 mg PO DAILY #60 tablet 09/19/15 [Rx] Diltiazem CD (24hr) [Cardizem CD] 360 mg PO DAILY #30 cap.er.24h 09/19/15 [Rx] Metoprolol [Lopressor] 50 mg PO BID #60 tablet 09/19/15 [Rx] Albuterol Neb [Proventil Neb] 2.5 mg IH Q4HR 07/05/16 [History] Ipratropium/Albuterol Neb [Duoneb] 3 ml IH [id number] PRN inh 12/08/16 [Rx] metFORMIN [Glucophage] 500 mg PO BIDWM #60 tablet 01/27/17 [Rx] Budesonide/Formoterol 160/4.5 [Symbicort 160/4.5] 2 puff IH BIDR #1 hfa.aer.ad 03/21/17 [Rx] Furosemide [Lasix] 60 mg PO BID #45 tablet 03/21/17 [Rx] Nicotine Patch [Nicoderm] 14 mg TD DAILY #30 patch.td24 03/21/17 [Rx] Docusate [Colace] 100 mg PO BID PRN capsule 03/24/17 [Rx] HYDROcodone/Acet 5/325 mg [[place] 5-325 mg] 1 tab PO Q6HR PRN #20 tablet [Rx] Oxygen 5 l .ROUTE AD #0 03/24/17 [Rx] levoFLOXacin [Levaquin] 750 mg PO Q24H 3 Days #1 tablet 03/24/17 [Rx] predniSONE [PredniSONE] 40 mg PO BIDWM #18 tablet 03/24/17 [Rx] Allergies/Adverse Reactions: 3 Allergy/AdvReac Type Severity Reaction Status Date / Time Penicillins Allergy Rash Verified 03/21/17 21:50 Date of admission: 03/22/17 04:19 Primary care physician: Aleksey Huggins DO Consults: 03/23/17 08:58 Consult to Occupational Therapy [CONS] Routine Comment: Evaluate, develop and implement POC Reason for Consult: eval for ecf Consult to Physical Therapy [CONS] Routine Comment: Evaluate, develop and implement POC Reason for Consult: eval for ecf 03/23/17 08:59 Consult to Shipping Room Supervisor [CONS] Routine Reason for SW Consult: ecf - Patient Status Disposition: Transfer SNF Condition: Good Overall status at discharge: patient is progressing back to baseline - Discharge Instructions Follow Up With: Aleksey Huggins DO [Primary Care Provider] - (WEB REQUEST SENT ON 03/23/17) - Diet and Activity Activity: as per physical therapy, increase activity as tolerated Diet: low salt diet Hospital course: Ms. Mccormick is a 56 y/o F with known PMH of Morbid obese, HTN, Diastolic CHF, chronic hypoxic resp failure on 5 lit consuelo eo2 dependent, chronic hypaercapneic resp failure, uses BiPAP at home , who has multiple hospitalization almost every month here with COPD exacerbation , hypoventilation syndrome now she presented to ER with progressively worsening SOB and DALE, on same day right after she d/c home from hospital. Pt was admitted here again for acute on chronic hypoxic resp failure, acute COPD exacerbation and acute diastolic CHF exacerbation. Pt was started on aggressive IV diuresis with Lasix 60mg BID, high dose IV steroids with Solumedrol 60mg Q8hr. Her symptoms started improving slowly. She also has social issues, unable to take care of herself, which putting her into resp failure and frequent hospitalizations here. She did agree this time to go to ECF for short term PT / OT and supervision care. Our SW/ CM worked with her insurance for ECF placement, finally she got a bed available at [facility] today. So will d/c her ECF in stable condition. However I recommend her nursing staff to keep continuing Lasix at 60mg BID , and Prednisone 40mg BID continue tapering. - Time Spent with Patient Total time spent providing and/or coordinating discharge services: - Constitutional Vitals: Temp Pulse Resp BP Pulse Ox 98.4 F 97 22 112/74 90 03/24/17 16:07 03/24/17 16:07 03/24/17 16:07 03/24/17 16:07 03/24/17 16:07 General appearance: Present: A&O X 3, morbidly obese, answers questions appropriately - Head Head exam: Present: atraumatic, normal inspection - Respiratory Respiratory exam: Present: decreased breath sounds, wheezes (moderate). Absent : rales, respiratory distress, rhonchi - Cardiovascular Cardiovascular exam: Present: RRR, +S1, +S2. Absent: systolic murmur - GI/Abdominal GI/Abdominal exam: Present: normal bowel sounds, soft. Absent: rebound, rigid, tenderness - Extremities Exam Extremities exam: Present: pedal edema (1-2+). Absent: calf tenderness, tenderness - Back Exam Back exam: Absent: CVA tenderness (L), CVA tenderness (R) - Neurological Exam Neurological exam: Present: alert, oriented X3 - Psychiatric Psychiatric exam: Present: normal affect, normal mood
--- NOTE | 2017-03-24 16:50 | Physician Discharge Referral ---
ExtendedCare Referral Info Transfer To: ecf Provider in Charge after Transfer: PCP Institutional Level of Care: Skilled - Diagnosis (1) Acute respiratory failure with hypoxia and hypercapnia Status: Acute (2) Acute exacerbation of chronic obstructive airways disease Status: Acute (3) Bronchitis Status: Acute (4) Acute on chronic diastolic CHF (congestive heart failure) Status: Acute (5) Tobacco abuse Status: Chronic (6) Diabetes mellitus Status: Chronic (7) Obesity hypoventilation syndrome Status: Chronic (8) Morbid obesity with BMI of 60.0-69.9, adult Status: Chronic - Transfer Medications Prescriptions: HYDROcodone/Acet 5/325 mg [[place] 5-325 mg] 1 tab PO Q6HR PRN #20 tablet PRN Reason: Moderate Pain (4-6) predniSONE [PredniSONE] 40 mg PO BIDWM #18 tablet Home Medications: Aclidinium [place] [Tudorza Pressair] 1 puff IH BID 09/08/15 [History] Albuterol Sulfate [Proair Hfa] 2 puff IH Q4H PRN 09/08/15 [History] Simvastatin [Zocor] 40 mg PO HS 09/08/15 [History] Aspirin 325 mg PO DAILY #60 tablet 09/19/15 [Rx] Diltiazem CD (24hr) [Cardizem CD] 360 mg PO DAILY #30 cap.er.24h 09/19/15 [Rx] Metoprolol [Lopressor] 50 mg PO BID #60 tablet 09/19/15 [Rx] Albuterol Neb [Proventil Neb] 2.5 mg IH Q4HR 07/05/16 [History] Ipratropium/Albuterol Neb [Duoneb] 3 ml IH [id number] PRN inh 12/08/16 [Rx] metFORMIN [Glucophage] 500 mg PO BIDWM #60 tablet 01/27/17 [Rx] Budesonide/Formoterol 160/4.5 [Symbicort 160/4.5] 2 puff IH BIDR #1 hfa.aer.ad 03/21/17 [Rx] Furosemide [Lasix] 60 mg PO BID #45 tablet 03/21/17 [Rx] Nicotine Patch [Nicoderm] 14 mg TD DAILY #30 patch.td24 03/21/17 [Rx] Docusate [Colace] 100 mg PO BID PRN capsule 03/24/17 [Rx] HYDROcodone/Acet 5/325 mg [[place] 5-325 mg] 1 tab PO Q6HR PRN #20 tablet [Rx] Oxygen 5 l .ROUTE AD #0 03/24/17 [Rx] levoFLOXacin [Levaquin] 750 mg PO Q24H 3 Days #1 tablet 03/24/17 [Rx] predniSONE [PredniSONE] 40 mg PO BIDWM #18 tablet 03/24/17 [Rx] Allergies/Adverse Reactions: 3 Allergy/AdvReac Type Severity Reaction Status Date / Time Penicillins Allergy Rash Verified 03/21/17 21:50 - Respiratory Orders Smoking Cessation: Smoking cessation has been advised. For more information, call the [place] Tobacco Quit Line at 3-703-MVVQNOW. CERTIFICATION: I certify that the transfer of the above named patient to an Extended Care Facility is necessary for the continuing treatment of the diagnosis listed. The above information is true and accurate reflection of patient's current condition. Confidential - Redisclosure prohibited without a patient's written consent.
[2017-03-24] MEDS ORDERED: Furosemide 20 MG/2 ML VIAL IVP SCH (17:00)
[2017-03-24] MEDS ORDERED: MethylPREDNISolone 40 MG/ML VIAL IVP SCH (18:00)
== END 2017-03-24 20:15 | DRG 140 ==
LOC: 2ANU 21:39 → EMEROO 21:39 → 2ANU 03-22 00:24 → SUATTDRO 03-22 04:19
PROVIDERS: ADMIT Internal Medicine; ATTEND Internal Medicine

== ENCOUNTER 2017-04-21 14:35 | Inpatient (IN) ==
[2017-04-21] MEDS ORDERED: methylPREDNISolone 125 MG/2 ML VIAL IVP ONE (14:41)
[2017-04-21] MEDS ORDERED: Ipratropium/Albuterol Neb 3 ML IH ONE (14:41)
[2017-04-21] MEDS ORDERED: Vancomycin 1,000 MG VIAL IVPB STA (14:41)
[2017-04-21] MEDS ORDERED: Cefepime HCl 2,000 MG in Water for inj. (sterile) 20 ML IVP ONE (14:41)
[2017-04-21 15:00] LABS: Basophils % 0.2 %; Hematocrit 32.1 % (35.3-44.9); Hemoglobin 9.7 g/dL (11.5-15.4); Immature Granulocytes % 1.3 % (0-4); Lymphocytes # 2.1 K/mcL (0.6-4.6); Lymphocytes % 9.1 %; Mean Corpuscular HGB Conc 30.2 g/dL (31.6-35.5); Mean Corpuscular Hemoglobin 28.4 pg (28.0-33.3); Mean Corpuscular Volume 93.9 fL (83.0-100.0); Mean Platelet Volume 9.5 fL (9.4-12.4); Monocytes # 1.4 K/mcL (0.0-1.3); Monocytes % 5.9 %; Neutrophils # 19.5 K/mcL (1.6-8.9); Nucleated Red Blood Cells 0.5 /100 WBC (0); Platelet Count 433 K/mcL (140-400); Red Blood Count 3.42 M/mcL (3.82-4.97); Red Cell Distribution Width 23.4 % (11.5-14.5); Segmented Neutrophils % 83.5 %
[2017-04-21 15:11] LABS: BUN/Creatinine Ratio 25 (6-26); Basophils # 0.1 K/mcL (0.0-0.2); Blood Urea Nitrogen 21 mg/dL (7-20); Calcium 9.3 mg/dL (8.6-10.8); Carbon Dioxide 29 mEq/L (19-29); Chloride 97 mEq/L (98-109); Glucose 186 mg/dL (70-99); Osmolality,Calculated 296 (280-300); Potassium 3.4 mEq/L (3.5-4.5); Sodium 139 mEq/L (136-145); eGFR For African Americans > 60 (> 60); eGFR For Non-African Americans > 60 (> 60)
--- NOTE | 2017-04-21 15:13 | Emergency Department Note ---
Disposition Clinical Impression: COPD exacerbation, Respiratory distress CHF (congestive heart failure) Qualifiers: Congestive heart failure type: unspecified congestive heart failure type Congestive heart failure chronicity: acute on chronic Qualified Code(s): I50.9 - Heart failure, unspecified Disposition: Admitted As Inpatient Condition: Fair Time of Disposition: 15:49 SOB HPI - General Chief Complaint: ED Shortness of Breath/Dyspnea Stated Complaint: MARICEL Time Seen by Provider: 04/21/17 14:41 Source: patient Limitations: no limitations Nursing Notes Reviewed: Yes Vital Signs Reviewed: Yes - History of Present Illness Presents with shortness of breath which began 2 days ago gradually and is constant and worse with exertion and she does have a history of COPD and did have a similar episode one month ago and was admitted to the hospital at that time and she denies any fever which was recorded but she has felt warm. Does have some cough. No rhinorrhea sneeze. Does have blurred vision. No blood in the urine or stool. No pain or swelling or numbness of extremities. No skin rash or bruising of the skin. I did review the previous record. Social history : No smoking. She does use CPAP at night - Related Data Home Medications Medication Instructions Recorded Confirmed Aclidinium [place] [Tudorza 1 puff IH BID 09/08/15 03/21/17 Pressair] Albuterol Sulfate [Proair Hfa] 2 puff IH Q4H PRN 09/08/15 03/21/17 Simvastatin [Zocor] 40 mg PO HS 09/08/15 03/21/17 Albuterol Neb [Proventil Neb] 2.5 mg IH Q4HR 07/05/16 03/21/17 Previous Rx's Medication Instructions Recorded Aspirin 325 mg PO DAILY #60 tablet 09/19/15 Diltiazem CD (24hr) [Cardizem CD] 360 mg PO DAILY #30 cap.er.24h 09/19/15 Metoprolol [Lopressor] 50 mg PO BID #60 tablet 09/19/15 Ipratropium/Albuterol Neb [Duoneb] 3 ml IH [id number] PRN inh 12/08/16 metFORMIN [Glucophage] 500 mg PO BIDWM #60 tablet 01/27/17 Budesonide/Formoterol 160/4.5 2 puff IH BIDR #1 hfa.aer.ad 03/21/17 [Symbicort 160/4.5] Furosemide [Lasix] 60 mg PO BID #45 tablet 03/21/17 Nicotine Patch [Nicoderm] 14 mg TD DAILY #30 patch.td24 03/21/17 Docusate [Colace] 100 mg PO BID PRN capsule 03/24/17 HYDROcodone/Acet 5/325 mg [[place] 1 tab PO Q6HR PRN #20 tablet 03/24/17 5-325 mg] Oxygen 5 l .ROUTE AD #0 03/24/17 levoFLOXacin [Levaquin] 750 mg PO Q24H 3 Days #1 tablet 03/24/17 predniSONE [PredniSONE] 40 mg PO BIDWM #18 tablet 03/24/17 Allergies Allergy/AdvReac Type Severity Reaction Status Date / Time Penicillins Allergy Rash Verified 03/21/17 21:50 Review of Systems: As Per HPI Past Medical History - Past Medical History Medical history: Reports: arthritis, asthma, atrial fibrillation, CHF, COPD, diabetes, GERD, hyperlipidemia, hypertension, osteoporosis, valvular heart disease, other Surgical history: Reports: non-contributory, other Psychiatric history: Reports: no psych history - Social History Smoking Status: Former smoker Smokeless Tobacco Status: No Alcohol use: Reports: rarely Drug use: Reports: none Physical Exam CONSTITUTIONAL: Alert and oriented X3, tachypnea, moderate to severe respiratory distress, oxygen saturation 93% on a nonrebreather mask HEAD: Normocephalic; atraumatic. EYES: PERRL, no scleral icterus. NOSE: The nose is normal in appearance without rhinorrhea RESP: Normal chest excursion with respiration; breath sounds with bilateral wheezing which is symmetric CARD: Regular rhythm, without murmurs, rub or gallop ABD: Non-distended; non-tender, soft,without rigidity, rebound or guarding SKIN: Normal for age and race; warm and dry; no apparent lesions extremities: no pain of lower extremities, they are symmetric - General Limitations: no limitations General appearance: alert, in no apparent distress Course Vital Signs Temperature 98.3 F 04/21/17 14:37 Pulse Rate 102 04/21/17 14:37 Respiratory Rate 26 04/21/17 14:37 Blood Pressure 127/107 04/21/17 14:37 O2 Sat by Pulse Oximetry 89 04/21/17 14:37 Temperature 98.6 F 04/21/17 19:38 Pulse Rate 90 04/21/17 19:38 Respiratory Rate 26 04/21/17 20:25 Blood Pressure 113/69 04/21/17 19:38 O2 Sat by Pulse Oximetry 90 04/21/17 20:25 Oxygen Delivery Oxygen Delivery Nasal Cannula Shortness of Breath/Dyspnea - MDM Narrative Medical decision making narrative: I did review the patient's EKG which does show atrial fibrillation with a rate of 82 without acute ischemic changes. I did compared to a previous EKG from last month but also does show atrial fibrillation. The patient received 3 DuoNeb treatments, BiPAP, labs, chest x-ray and will be watched closely on the monitor admitted to the hospital. I did write for Solu-Medrol, as well as medication for hospital-acquired pneumonia including cefepime and vancomycin 1514 I did review the x-ray was does have the appearance of the left lower lobe infiltrate 1529 The case was discussed with the hospitalist and the patient has undergone surgery on antibiotics. The BNP is elevated slightly however I feel this is more likely to be from an infectious etiology causing worsening and the COPD as opposed to purely congestive heart failure however that is certainly one consideration the patient will receive IV Lasix and nitroglycerin paste. The patient is admitted to the hospital. Critical care time: 45 minutes 1547 - Medical Records Medical records reviewed: Yes I reviewed the patient's medical records. - Lab Data Lab results reviewed: Yes I reviewed the patient's lab results. Result diagrams: 04/21/17 14:45 04/21/17 14:45 Lab Results 04/21/17 04/21/17 04/21/17 Range/Units 14:45 14:45 14:45 WBC 23.4 H (4.3-11.1) K/mcL RBC 3.42 L (3.82-4.97) M/mcL Hgb 9.7 L (11.5-15.4) g/dL Hct 32.1 L (35.3-44.9) % MCV 93.9 (83.0-100.0) fL MCH 28.4 (28.0-33.3) pg MCHC 30.2 L (31.6-35.5) g/dL RDW 23.4 H (11.5-14.5) % Plt Count 433 H (140-400) K/mcL MPV 9.5 (9.4-12.4) fL Immature Gran % 1.3 (0-4) % Seg Neutrophils % 83.5 % Lymphocytes % 9.1 % Monocytes % 5.9 % Eosinophils % 0.0 % Basophils % 0.2 % Neutrophils # 19.5 H (1.6-8.9) K/mcL Lymphocytes # 2.1 (0.6-4.6) K/mcL Monocytes # 1.4 H (0.0-1.3) K/mcL Eosinophils # 0.0 (0.0-0.6) K/mcL Basophils # 0.1 (0.0-0.2) K/mcL Nucleated RBCs/100 WBC 0.5 H (0) /100 WBC Platelet Estimate Slight increase H (Normal) Polychromasia 2+ A (Not Present) Anisocytosis 3+ A (Not Present) Sodium 139 (136-145) mEq/L Potassium 3.4 L (3.5-4.5) mEq/L Chloride 97 L (98-109) mEq/L Carbon Dioxide 29 (19-29) mEq/L BUN 21 H (7-20) mg/dL Creatinine 0.83 (0.57-1.11) mg/dL Est GFR ( Amer) > 60 (> 60) Est GFR (Non-Af Amer) > 60 (> 60) BUN/Creatinine Ratio 25 (6-26) Glucose 186 H (70-99) mg/dL POC Glucose (58-89) Calculated Osmolality 296 (280-300) Calcium 9.3 (8.6-10.8) mg/dL Troponin I 0.00 (0-0.03) ng/mL B-Natriuretic Peptide (0-100) pg/mL 04/21/17 04/21/17 Range/Units 14:45 16:43 WBC (4.3-11.1) K/mcL RBC (3.82-4.97) M/mcL Hgb (11.5-15.4) g/dL Hct (35.3-44.9) % MCV (83.0-100.0) fL MCH (28.0-33.3) pg MCHC (31.6-35.5) g/dL RDW (11.5-14.5) % Plt Count (140-400) K/mcL MPV (9.4-12.4) fL Immature Gran % (0-4) % Seg Neutrophils % % Lymphocytes % % Monocytes % % Eosinophils % % Basophils % % Neutrophils # (1.6-8.9) K/mcL Lymphocytes # (0.6-4.6) K/mcL Monocytes # (0.0-1.3) K/mcL Eosinophils # (0.0-0.6) K/mcL Basophils # (0.0-0.2) K/mcL Nucleated RBCs/100 WBC (0) /100 WBC Platelet Estimate (Normal) Polychromasia (Not Present) Anisocytosis (Not Present) Sodium (136-145) mEq/L Potassium (3.5-4.5) mEq/L Chloride (98-109) mEq/L Carbon Dioxide (19-29) mEq/L BUN (7-20) mg/dL Creatinine (0.57-1.11) mg/dL Est GFR ( Amer) (> 60) Est GFR (Non-Af Amer) (> 60) BUN/Creatinine Ratio (6-26) Glucose (70-99) mg/dL POC Glucose 185 H (58-89) Calculated Osmolality (280-300) Calcium (8.6-10.8) mg/dL Troponin I (0-0.03) ng/mL B-Natriuretic Peptide 654 H (0-100) pg/mL - Radiology Data Radiology results reviewed: Yes I reviewed the patient's radiology results. Critical Care Time Critical Care Time: Yes Total Critical Care Time: 45 Attestation: 45 minutes of critical care time was spent with the patient came in in severe respiratory distress and was placed on BiPAP administration of 3 DuoNeb, IV steroids, advance line antibiotics in discussion with the hospitalist and reassessment.
[2017-04-21 15:44] LABS: Anisocytosis 3+ (Not Present); Polychromasia 2+ (Not Present)
[2017-04-21] MEDS ORDERED: Nitroglycerin 1 INCH/GM PACKET TP ONE (15:50)
[2017-04-21] MEDS ORDERED: Furosemide 40 MG/4 ML VIAL IVP ONE (15:50)
[2017-04-21] MEDS ORDERED: Vancomycin 1,000 MG in D5% in Water 250 ML IVPB ONE (16:00)
[2017-04-21] MEDS ORDERED: Naloxone 0.4 MG/ML INJ IVP PRN (18:30)
[2017-04-21] MEDS ORDERED: Ipratropium/Albuterol Neb 3 ML IH PRN (18:32)
--- NOTE | 2017-04-21 18:41 | Internal Med History&Physical ---
Date of Encounter: 04/21/17 Time of Encounter: 18:40 Assessment and Plan (1) HCAP (healthcare-associated pneumonia) Current visit: Yes Status: Acute Pneumonia in setting of recent hospitalization - subjective fevers, leukocytosis , productive cough - cefepime and vanc given in ED - continue cefepime - Blood cultures pending - Continue O2 and BIPAP PRN (2) Acute exacerbation of chronic obstructive airways disease Current visit: No Status: Acute Patient wheezing on exam. - Treatment for HCAP as above - Prednisone 40mg daily - Duonebs and PRN albuterol - Continue home tudorza and symbicort (3) Acute and chronic respiratory failure Current visit: No Status: Acute Multifactorial - HCAP, COPD, CHF exacerbation, obesity hypoventilation - Treat as above Qualifiers: Respiratory failure complication: hypoxia and hypercapnia Qualified Code(s) : J96.21 - Acute and chronic respiratory failure with hypoxia; J96.22 - Acute and chronic respiratory failure with hypercapnia; J96.22 - Acute and chronic respiratory failure with hypercapnia; J96.22 - Acute and chronic respiratory failure with hypercapnia (4) Atrial fibrillation Current visit: No Status: Chronic Continue home rate control meds Qualifiers: Atrial fibrillation type: chronic Qualified Code(s): I48.2 - Chronic atrial fibrillation (5) Congestive heart failure Current visit: Yes Status: Chronic IV lasix 40mg BID, holding home lasix dose. Qualifiers: Congestive heart failure type: unspecified congestive heart failure type Congestive heart failure chronicity: acute on chronic Qualified Code(s): I50.9 - Heart failure, unspecified (6) Anemia Current visit: No Status: Acute Chronic issue. Monitor hgb daily. Qualifiers: Anemia type: unspecified type Qualified Code(s): D64.9 - Anemia, unspecified (7) Tobacco abuse Current visit: No Status: Chronic Continue home nicotine patch, has not smoked in one month (8) Non-insulin dependent type 2 diabetes mellitus Current visit: No Status: Chronic Hold metformin while admitted. - [facility] Internal Medicine - H&P: HPI Chief complaint: Shortness of breath Admitted From: Emergency Dept Plans for Post Hospital Care: Home History of present illness: Ms. Kyle is a 56 year old female with history of COPD and CHF, recent hospitalization for COPD exacerbation, who presented to the ED this afternoon with complaint of shortness of breath. She developed cough productive of reddish sputum two days ago, thought she was getting a cold. She was chilled and then sweaty but did not take her temperature. She developed pleuritic chest pain and worsening cough and shortness of breath. She uses 5L home O2 continuous and BIPAP at night because of chronic respiratory failure. She was nauseated but has not vomited or had diarrhea. She denies urinary symptoms. In the ED CXR was concerning for pneumonia as well as CHF exacerbation. Past Med Surg Social Fam HX - Past Medical History Medical history: arthritis, asthma, atrial fibrillation, CHF, COPD, diabetes, GERD, hyperlipidemia, hypertension, osteoporosis, valvular heart disease, other Psychiatric history: no psych history - Past Surgical History Surgical History: non-contributory, other - Social History Smoking Status: Former smoker Smokeless Tobacco Status: No Alcohol use: rarely Drug use: none - Family History Mother Living Status: Hx Family Cardiac Disorders: Yes Hx Family Endocrine Disorder: Yes (DM) Father Living Status: Hx Family Respiratory Disorders: Yes (Asthma, COPD, Emphysema) Internal Medicine - H&P: Meds Aclidinium [place] [Tudorza Pressair] 1 puff IH BID 09/08/15 [History] Albuterol Sulfate [Proair Hfa] 2 puff IH Q4H PRN 09/08/15 [History] Simvastatin [Zocor] 40 mg PO HS 09/08/15 [History] Aspirin 325 mg PO DAILY #60 tablet 09/19/15 [Rx] Diltiazem CD (24hr) [Cardizem CD] 360 mg PO DAILY #30 cap.er.24h 09/19/15 [Rx] Metoprolol [Lopressor] 50 mg PO BID #60 tablet 09/19/15 [Rx] Albuterol Neb [Proventil Neb] 2.5 mg IH Q4HR 07/05/16 [History] Ipratropium/Albuterol Neb [Duoneb] 3 ml IH [id number] PRN inh 12/08/16 [Rx] metFORMIN [Glucophage] 500 mg PO BIDWM #60 tablet 01/27/17 [Rx] Budesonide/Formoterol 160/4.5 [Symbicort 160/4.5] 2 puff IH BIDR #1 hfa.aer.ad 03/21/17 [Rx] Furosemide [Lasix] 60 mg PO BID #45 tablet 03/21/17 [Rx] Nicotine Patch [Nicoderm] 14 mg TD DAILY #30 patch.td24 03/21/17 [Rx] Docusate [Colace] 100 mg PO BID PRN capsule 03/24/17 [Rx] HYDROcodone/Acet 5/325 mg [[place] 5-325 mg] 1 tab PO Q6HR PRN #20 tablet [Rx] Oxygen 5 l .ROUTE AD #0 03/24/17 [Rx] levoFLOXacin [Levaquin] 750 mg PO Q24H 3 Days #1 tablet 03/24/17 [Rx] predniSONE [PredniSONE] 40 mg PO BIDWM #18 tablet 03/24/17 [Rx] 3 Allergy/AdvReac Type Severity Reaction Status Date / Time Penicillins Allergy Rash Verified 03/21/17 21:50 All Systems PM: A 10-system review of systems was performed and is negative for pertinent findings except as documented above in the HPI. - Constitutional Vitals: Temp Pulse Resp BP Pulse Ox 98.3 F 75 17 111/90 94 04/21/17 16:40 04/21/17 16:40 04/21/17 16:40 04/21/17 16:40 04/21/17 16:40 General appearance: Present: A&O X 3, morbidly obese, pleasant - Head Head exam: Present: atraumatic - Eye Eye exam: Present: EOMI, sclera anicteric - ENT ENT exam: Present: mucous membranes moist - Neck Neck exam general surgery: Present: supple - Respiratory Respiratory exam: Present: decreased breath sounds, wheezes - Cardiovascular Cardiovascular exam: Present: RRR. Absent: diastolic murmur, gallop, rubs, systolic murmur - GI/Abdominal GI/Abdominal exam: Present: normal bowel sounds, soft. Absent: distended, tenderness - Extremities Exam Extremities exam: Present: pedal edema (3+ bilateral) - Neurological Exam Neurological exam: Present: no focal deficits - Skin Skin exam: Absent: rash Internal Med - H&P Results - Labs CBC & Chem 7: 04/21/17 14:45 04/21/17 14:45
[2017-04-21] MEDS ORDERED: D5% in Water 1,000 ML IVC PRN (18:52)
[2017-04-21] MEDS ORDERED: *HR* Dextrose 50 % in Water (Syg) 50 ML SYRINGE IVP PRN (18:52)
[2017-04-21] MEDS ORDERED: Dextrose Gel 15 GM PO PRN ×2 (18:52)
[2017-04-21] MEDS: Albuterol 2.5 MG/3 ML NEBULIZER IH SCH ×2 (20:22→23:40)
[2017-04-21] MEDS: Budesonide/Formoterol 160/4.5 MDI IH SCH (20:23)
[2017-04-21] MEDS: Insulin LISPRO 300 UNITS/3 ML VIAL SQ SCH (21:53)
[2017-04-21] MEDS: (Aclidinium Bromide [Tudorza Pressair] 1 PUFF) IH SCH (22:01)
[2017-04-21] MEDS: Cefepime HCl 2,000 MG in Water for inj. (sterile) 20 ML IVP SCH (23:51)
[2017-04-21] MEDS: Furosemide 40 MG/4 ML VIAL IVP SCH (23:51)
[2017-04-21] MEDS: *HR* Heparin 5,000 UNIT/ML VIAL SQ SCH (23:51)
[2017-04-21] MEDS: Melatonin 3 MG TABLET PO PRN (23:57)
[2017-04-22 01:38] LABS: Basophils % 0.2 %; Hematocrit 30.4 % (35.3-44.9); Hemoglobin 9.2 g/dL (11.5-15.4); Immature Granulocytes % 1.6 % (0-4); Immature Platelets 4.4 % (1.1-6.1); Lymphocytes % 5.4 %; Mean Corpuscular HGB Conc 30.3 g/dL (31.6-35.5); Mean Corpuscular Hemoglobin 28.6 pg (28.0-33.3); Mean Corpuscular Volume 94.4 fL (83.0-100.0); Mean Platelet Volume 10.3 fL (9.4-12.4); Monocytes # 0.5 K/mcL (0.0-1.3); Monocytes % 2.5 %; Neutrophils # 16.9 K/mcL (1.6-8.9); Nucleated Red Blood Cells 0.4 /100 WBC (0); Platelet Count 433 K/mcL (140-400); Red Blood Count 3.22 M/mcL (3.82-4.97); Red Cell Distribution Width 23.3 % (11.5-14.5); Segmented Neutrophils % 90.3 %
[2017-04-22 01:50] LABS: BUN/Creatinine Ratio 26 (6-26); Blood Urea Nitrogen 27 mg/dL (7-20); Calcium 9.6 mg/dL (8.6-10.8); Carbon Dioxide 29 mEq/L (19-29); Chloride 96 mEq/L (98-109); Glucose 319 mg/dL (70-99); Osmolality,Calculated 301 (280-300); Potassium 3.8 mEq/L (3.5-4.5); Sodium 137 mEq/L (136-145); eGFR For African Americans > 60 (> 60); eGFR For Non-African Americans 56 (> 60)
[2017-04-22 02:03] LABS: Anisocytosis 2+ (Not Present); Polychromasia 1+ (Not Present)
[2017-04-22] MEDS: Albuterol 2.5 MG/3 ML NEBULIZER IH SCH ×5 (04:11→21:32)
[2017-04-22] MEDS: Insulin LISPRO 300 UNITS/3 ML VIAL SQ SCH ×4 (08:11→21:26)
[2017-04-22] MEDS: Cefepime HCl 2,000 MG in Water for inj. (sterile) 20 ML IVP SCH ×3 (08:11→23:11)
[2017-04-22] MEDS: Aspirin 325 MG TABLET PO SCH (08:12)
[2017-04-22] MEDS: Diltiazem CD (24hr) 180 MG CAPSULE PO SCH (08:12)
[2017-04-22] MEDS: Furosemide 40 MG/4 ML VIAL IVP SCH ×2 (08:12→20:17)
[2017-04-22] MEDS: *HR* Heparin 5,000 UNIT/ML VIAL SQ SCH ×3 (08:12→23:11)
[2017-04-22] MEDS: predniSONE 20 MG TABLET PO SCH (08:13)
[2017-04-22] MEDS: Budesonide/Formoterol 160/4.5 MDI IH SCH ×2 (08:41→21:32)
[2017-04-22] MEDS ORDERED: Nicotine 14 MG PATCH.TD24 TD SCH (09:00)
--- NOTE | 2017-04-22 09:38 | Internal Med Progress Note ---
Date of Encounter: 04/22/17 Time of Encounter: 09:36 - Assessment and plan (1) Hypoxemic respiratory failure, chronic Current Visit: No Status: Acute Assessment and plan: Acute on chronic hypoxic respiratory failure secondary to acute diastolic CHF exacerbation in combination with acute COPD exacerbation due to healthcare associated pneumonia present upon admission Heart rate was more than 100 and WBC was 23.4 Continue Lasix IV, strict I's and O's, daily weight Continue prednisone, cefepime day 2 (the patient received 1 dose of vancomycin at the ER), she is improving only on cefepime, consider other antibiotic agents if needed DuoNeb's, BiPAP (2) Acute on chronic diastolic CHF (congestive heart failure) Current Visit: No Status: Acute (3) HCAP (healthcare-associated pneumonia) Current Visit: Yes Status: Acute (4) Acute exacerbation of chronic obstructive airways disease Current Visit: No Status: Acute (5) Sepsis Current Visit: No Status: Resolved Qualifiers: Sepsis type: sepsis due to unspecified organism Qualified Code(s): A41.9 - Sepsis, unspecified organism (6) Atrial fibrillation Current Visit: No Status: Chronic Assessment and plan: Continue metoprolol, diltiazem, aspirin Qualifiers: Atrial fibrillation type: chronic Qualified Code(s): I48.2 - Chronic atrial fibrillation (7) Tobacco use disorder Current Visit: No Status: Chronic Assessment and plan: Smoking cessation counseling, nicotine patch (8) TYE (obstructive sleep apnea) Current Visit: No Status: Chronic (9) Hypokalemia Current Visit: No Status: Acute Assessment and plan: Resolved (10) Diabetes mellitus Current Visit: No Status: Chronic Assessment and plan: Insulin sliding scale Qualifiers: Diabetes mellitus type: type 2 Diabetes mellitus complication status: with hyperglycemia Diabetes mellitus mcfp insulin use: without terminal block assembler use Qualified Code(s): E11.65 - Type 2 diabetes mellitus with hyperglycemia - Subjective Interval history: Feeling less short of breath, bringing up some yellowish phlegm, no chest pain, no fevers, no abdominal pain or dysuria. - Constitutional Vitals: Temp Pulse Resp BP Pulse Ox 98.6 F 81 16 101/68 91 04/22/17 07:00 04/22/17 07:00 04/22/17 08:41 04/22/17 07:00 04/22/17 08:41 General appearance: Present: A&O X 3, morbidly obese, pleasant - Head Head exam: Present: atraumatic, normocephalic - Eye Eye exam: Present: PERRL, conjuntiva pink, sclera anicteric Pupils: Present: PERRL - Neck Neck exam general surgery: Present: supple, trachea midline. Absent: lymphadenopathy - Respiratory Respiratory exam: Present: decreased breath sounds, CTAB. Absent: accessory muscle use, rales, rhonchi, wheezes - Cardiovascular Cardiovascular exam: Present: RRR, +S1, +S2. Absent: diastolic murmur, gallop, rubs, systolic murmur - GI/Abdominal GI/Abdominal exam: Present: normal bowel sounds, soft, no peritoneal signs. Absent: distended, tenderness - Extremities Exam Extremities exam: Present: pedal edema (+2 pitting edema in both lower extremities), warm, radial pulses palpable and symmetrical. Absent: calf tenderness, cyanotic - Neurological Exam Neurological exam: Present: CN II-XII intact, oriented X3, no focal deficits. Absent: pronater drift, facial droop, speech deficit - Skin Skin exam: Present: dry, intact Internal Medicine: Result - Labs CBC & Chem 7: 04/22/17 00:37 04/22/17 00:37 Labs: Short CBC 04/22/17 Range/Units 00:37 WBC 18.7 H (4.3-11.1) K/mcL Hgb 9.2 L (11.5-15.4) g/dL Hct 30.4 L (35.3-44.9) % Plt Count 433 H (140-400) K/mcL Neutrophils # 16.9 H (1.6-8.9) K/mcL BMP 04/22/17 00:37 Sodium 137 Potassium 3.8 Chloride 96 L Carbon Dioxide 29 BUN 27 H Creatinine 1.02 Glucose 319 H Calcium 9.6 Cardiac Enzymes 04/21/17 04/22/17 04/22/17 Range/Units 21:57 00:37 06:36 Troponin I 0.01 0.00 0.01 (0-0.03) ng/mL Consult Discharge Plan - Plan Referrals: Aleksey Huggins DO [Primary Care Provider] -
[2017-04-22] MEDS: (Aclidinium Bromide [Tudorza Pressair] 1 PUFF) IH SCH ×2 (11:07→20:19)
[2017-04-22] MEDS: Nicotine 14 MG PATCH.TD24 TD SCH (20:17)
[2017-04-22] MEDS: Melatonin 3 MG TABLET PO PRN (23:11)
[2017-04-23] MEDS: Albuterol 2.5 MG/3 ML NEBULIZER IH SCH ×7 (00:09→23:55)
[2017-04-23] MEDS: Budesonide/Formoterol 160/4.5 MDI IH SCH ×2 (08:25→20:10)
[2017-04-23] MEDS: Diltiazem CD (24hr) 180 MG CAPSULE PO SCH (09:40)
[2017-04-23] MEDS: predniSONE 20 MG TABLET PO SCH (09:40)
[2017-04-23] MEDS: *HR* Heparin 5,000 UNIT/ML VIAL SQ SCH ×2 (09:40→16:33)
[2017-04-23] MEDS: Furosemide 40 MG/4 ML VIAL IVP SCH ×2 (09:40→16:33)
[2017-04-23] MEDS: Aspirin 325 MG TABLET PO SCH (09:40)
[2017-04-23] MEDS: Insulin LISPRO 300 UNITS/3 ML VIAL SQ SCH ×4 (09:40→20:26)
--- NOTE | 2017-04-23 09:40 | Internal Med Progress Note ---
Date of Encounter: 04/23/17 Time of Encounter: 09:38 - Assessment and plan (1) Hypoxemic respiratory failure, chronic Current Visit: No Status: Acute Assessment and plan: Acute on chronic hypoxic respiratory failure secondary to acute diastolic CHF exacerbation in combination with acute COPD exacerbation due to healthcare associated pneumonia present upon admission Heart rate was more than 100 and WBC was 23.4 Continue Lasix IV, strict I's and O's, daily weight Continue prednisone, cefepime day 3 (the patient received 1 dose of vancomycin at the ER), she is improving only on cefepime, consider other antibiotic agents if needed DuoNeb's, BiPAP (2) Acute on chronic diastolic CHF (congestive heart failure) Current Visit: No Status: Acute (3) HCAP (healthcare-associated pneumonia) Current Visit: Yes Status: Acute (4) Acute exacerbation of chronic obstructive airways disease Current Visit: No Status: Acute (5) Sepsis Current Visit: No Status: Resolved Qualifiers: Sepsis type: sepsis due to unspecified organism Qualified Code(s): A41.9 - Sepsis, unspecified organism (6) Atrial fibrillation Current Visit: No Status: Chronic Assessment and plan: Continue metoprolol, diltiazem, aspirin Qualifiers: Atrial fibrillation type: chronic Qualified Code(s): I48.2 - Chronic atrial fibrillation (7) Tobacco use disorder Current Visit: No Status: Chronic Assessment and plan: Smoking cessation counseling, nicotine patch (8) TYE (obstructive sleep apnea) Current Visit: No Status: Chronic (9) Hypokalemia Current Visit: No Status: Acute Assessment and plan: Resolved (10) Diabetes mellitus Current Visit: No Status: Chronic Assessment and plan: Insulin sliding scale Qualifiers: Diabetes mellitus type: type 2 Diabetes mellitus complication status: with hyperglycemia Diabetes mellitus senior living insulin use: without terminal gauger supervisor use Qualified Code(s): E11.65 - Type 2 diabetes mellitus with hyperglycemia - Subjective Interval history: Feeling slightly better, less short of breath, bringing up some yellowish phlegm , no chest pain, no fevers, no abdominal pain or dysuria. - Constitutional Vitals: Temp Pulse Resp BP Pulse Ox 97.8 F 80 21 98/68 98 04/23/17 07:43 04/23/17 07:43 04/23/17 07:43 04/23/17 07:43 04/23/17 03:47 General appearance: Present: A&O X 3, morbidly obese, pleasant Exam: - Head Head exam: Present: atraumatic, normocephalic - Eye Eye exam: Present: PERRL, conjuntiva pink, sclera anicteric Pupils: Present: PERRL - Neck Neck exam general surgery: Present: supple, trachea midline. Absent: lymphadenopathy - Respiratory Respiratory exam: Present: decreased breath sounds, CTAB. Absent: accessory muscle use, rales, rhonchi, wheezes - Cardiovascular Cardiovascular exam: Present: RRR, +S1, +S2. Absent: diastolic murmur, gallop, rubs, systolic murmur - GI/Abdominal GI/Abdominal exam: Present: normal bowel sounds, soft, no peritoneal signs. Absent: distended, tenderness - Extremities Exam Extremities exam: Present: pedal edema (+2 pitting edema in both lower extremities, lymphedema evidenced in both lower extremities), warm, radial pulses palpable and symmetrical. Absent: calf tenderness, cyanotic - Neurological Exam Neurological exam: Present: CN II-XII intact, oriented X3, no focal deficits. Absent: pronater drift, facial droop, speech deficit - Skin Skin exam: Present: dry, intact Internal Medicine: Result - Labs CBC & Chem 7: 04/22/17 00:37 04/22/17 00:37 Consult Discharge Plan - Plan Referrals: Aleksey Huggins DO [Primary Care Provider] -
[2017-04-23] MEDS: *HR* HYDROcodone/Acet 5/325 mg TABLET PO PRN ×2 (09:43→20:25)
[2017-04-23 09:47] LABS: Hematocrit 29.4 % (35.3-44.9); Hemoglobin 8.6 g/dL (11.5-15.4); Mean Corpuscular HGB Conc 29.3 g/dL (31.6-35.5); Mean Corpuscular Volume 95.8 fL (83.0-100.0); Mean Platelet Volume 9.6 fL (9.4-12.4); Platelet Count 398 K/mcL (140-400); Red Blood Count 3.07 M/mcL (3.82-4.97)
[2017-04-23 09:59] LABS: BUN/Creatinine Ratio 38 (6-26); Calcium 9.4 mg/dL (8.6-10.8); Carbon Dioxide 29 mEq/L (19-29); Chloride 99 mEq/L (98-109); Glucose 259 mg/dL (70-99); Osmolality,Calculated 311 (280-300); Potassium 3.8 mEq/L (3.5-4.5); Sodium 141 mEq/L (136-145); eGFR For African Americans > 60 (> 60); eGFR For Non-African Americans 54 (> 60)
[2017-04-23 10:00] LABS: Blood Urea Nitrogen 40 mg/dL (7-20)
[2017-04-23] MEDS: (Aclidinium Bromide [Tudorza Pressair] 1 PUFF) IH SCH ×2 (11:08→20:26)
[2017-04-23] MEDS: Cefepime HCl 2,000 MG in Water for inj. (sterile) 20 ML IVP SCH ×2 (13:21→16:34)
[2017-04-23] MEDS: Nicotine 14 MG PATCH.TD24 TD SCH (18:34)
[2017-04-24] MEDS: Cefepime HCl 2,000 MG in Water for inj. (sterile) 20 ML IVP SCH ×4 (00:03→23:18)
[2017-04-24] MEDS: Melatonin 3 MG TABLET PO PRN ×2 (00:04→23:18)
[2017-04-24] MEDS: *HR* Heparin 5,000 UNIT/ML VIAL SQ SCH ×4 (00:04→23:17)
[2017-04-24] MEDS: Albuterol 2.5 MG/3 ML NEBULIZER IH SCH ×6 (03:32→23:20)
[2017-04-24 04:46] LABS: Hemoglobin 8.7 g/dL (11.5-15.4)
[2017-04-24 04:47] LABS: Hematocrit 30.2 % (35.3-44.9); Mean Corpuscular HGB Conc 28.8 g/dL (31.6-35.5); Mean Corpuscular Hemoglobin 27.9 pg (28.0-33.3); Mean Corpuscular Volume 96.8 fL (83.0-100.0); Platelet Count 407 K/mcL (140-400); Red Blood Count 3.12 M/mcL (3.82-4.97); Red Cell Distribution Width 22.7 % (11.5-14.5)
[2017-04-24 04:57] LABS: BUN/Creatinine Ratio 47 (6-26); Blood Urea Nitrogen 40 mg/dL (7-20); Calcium 9.3 mg/dL (8.6-10.8); Carbon Dioxide 31 mEq/L (19-29); Chloride 101 mEq/L (98-109); Glucose 199 mg/dL (70-99); Osmolality,Calculated 307 (280-300); Potassium 3.7 mEq/L (3.5-4.5); Sodium 141 mEq/L (136-145); eGFR For African Americans > 60 (> 60); eGFR For Non-African Americans > 60 (> 60)
[2017-04-24] MEDS: Budesonide/Formoterol 160/4.5 MDI IH SCH ×2 (07:54→20:08)
[2017-04-24] MEDS: Diltiazem CD (24hr) 180 MG CAPSULE PO SCH (07:55)
[2017-04-24] MEDS: predniSONE 20 MG TABLET PO SCH (07:55)
[2017-04-24] MEDS: Aspirin 325 MG TABLET PO SCH (07:55)
[2017-04-24] MEDS: Furosemide 40 MG/4 ML VIAL IVP SCH ×3 (08:00→15:40)
[2017-04-24] MEDS: Insulin LISPRO 300 UNITS/3 ML VIAL SQ SCH ×4 (08:15→20:33)
--- NOTE | 2017-04-24 09:06 | Internal Med Progress Note ---
Date of Encounter: 04/24/17 Time of Encounter: 09:04 - Assessment and plan (1) Hypoxemic respiratory failure, chronic Current Visit: No Status: Acute Assessment and plan: Acute on chronic hypoxic respiratory failure secondary to acute diastolic CHF exacerbation in combination with acute COPD exacerbation due to healthcare associated pneumonia present upon admission Heart rate was more than 100 and WBC was 23.4 Increase dose of Lasix IV up to 40 mg times a day, strict I's and O's, daily weight Continue prednisone, cefepime day 4 (the patient received 1 dose of vancomycin at the ER) Start Levaquin DuoNeb's, BiPAP (2) Acute on chronic diastolic CHF (congestive heart failure) Current Visit: No Status: Acute (3) HCAP (healthcare-associated pneumonia) Current Visit: Yes Status: Acute (4) Acute exacerbation of chronic obstructive airways disease Current Visit: No Status: Acute (5) Sepsis Current Visit: No Status: Resolved Qualifiers: Sepsis type: sepsis due to unspecified organism Qualified Code(s): A41.9 - Sepsis, unspecified organism (6) Atrial fibrillation Current Visit: No Status: Chronic Assessment and plan: Continue metoprolol, diltiazem, aspirin Qualifiers: Atrial fibrillation type: chronic Qualified Code(s): I48.2 - Chronic atrial fibrillation (7) Tobacco use disorder Current Visit: No Status: Chronic Assessment and plan: Smoking cessation counseling, nicotine patch (8) TYE (obstructive sleep apnea) Current Visit: No Status: Chronic (9) Hypokalemia Current Visit: No Status: Acute Assessment and plan: Resolved (10) Diabetes mellitus Current Visit: No Status: Chronic Assessment and plan: Insulin sliding scale Qualifiers: Diabetes mellitus type: type 2 Diabetes mellitus complication status: with hyperglycemia Diabetes mellitus oil heaterman insulin use: without oil heaterman use Qualified Code(s): E11.65 - Type 2 diabetes mellitus with hyperglycemia - Subjective Interval history: Feeling more short of breath, bringing up some yellowish phlegm, no chest pain, no fevers, no abdominal pain or dysuria. - Constitutional Vitals: Temp Pulse Resp BP Pulse Ox 97.5 F L 81 18 122/81 99 04/24/17 06:56 04/24/17 06:56 04/24/17 07:54 04/24/17 06:56 04/24/17 07:54 General appearance: Present: A&O X 3, morbidly obese, pleasant Exam: - Head Head exam: Present: atraumatic, normocephalic - Eye Eye exam: Present: PERRL, conjuntiva pink, sclera anicteric Pupils: Present: PERRL - Neck Neck exam general surgery: Present: supple, trachea midline. Absent: lymphadenopathy - Respiratory Respiratory exam: Present: decreased breath sounds, CTAB. Absent: accessory muscle use, rales, rhonchi, wheezes - Cardiovascular Cardiovascular exam: Present: RRR, +S1, +S2. Absent: diastolic murmur, gallop, rubs, systolic murmur - GI/Abdominal GI/Abdominal exam: Present: normal bowel sounds, soft, no peritoneal signs. Absent: distended, tenderness - Extremities Exam Extremities exam: Present: pedal edema (+2 pitting edema in both lower extremities, lymphedema evidenced in both lower extremities), warm, radial pulses palpable and symmetrical. Absent: calf tenderness, cyanotic - Neurological Exam Neurological exam: Present: CN II-XII intact, oriented X3, no focal deficits. Absent: pronater drift, facial droop, speech deficit - Skin Skin exam: Present: dry, intact Internal Medicine: Result - Labs CBC & Chem 7: 04/24/17 04:08 04/24/17 04:08 Labs: Short CBC 04/23/17 04/24/17 Range/Units 09:35 04:08 WBC 20.4 H 20.6 H (4.3-11.1) K/mcL Hgb 8.6 L 8.7 L (11.5-15.4) g/dL Hct 29.4 L 30.2 L (35.3-44.9) % Plt Count 398 407 H (140-400) K/mcL [facility] 04/23/17 04/24/17 09:35 04:08 Sodium 141 141 Potassium 3.8 3.7 Chloride 99 101 Carbon Dioxide 29 31 H BUN 40 H D 40 H Creatinine 1.06 0.86 Glucose 259 H 199 H Calcium 9.4 9.3 Consult Discharge Plan - Plan Referrals: Aleksey Huggins DO [Primary Care Provider] -
[2017-04-24] MEDS: Levofloxacin 750 MG/150 ML 750 MG/150 ML BAG IVPB SCH (11:30)
--- NOTE | 2017-04-24 16:53 | Electrocardiograph Report ---
[address] [address] Test Date: 2017-04-21 Pat Name: Shanda Kyle Department: 104 Room: 2A33 Gender: F Binder Technician: JUANA : 1960 Requested By: Theodore Carmichael Order Number: [id number] Reading MD: Mp Shafer Measurements Intervals [place] Rate: 82 P: MN: 0 QRS: 37 QRSD: 95 T: 134 QT: 359 QTc: 397 Interpretive Statements ATRIAL FIBRILLATION LOW QRS VOLTAGE IN PRECORDIAL LEADS NONSPECIFIC ST & T-WAVE ABNORMALITY Electronically Signed On 04-24-2017 16:52:14 EST by Mp Shafer
[2017-04-24] MEDS: (Aclidinium Bromide [Tudorza Pressair] 1 PUFF) IH SCH (19:34)
[2017-04-24] MEDS: Nicotine 14 MG PATCH.TD24 TD SCH (20:32)
[2017-04-25] MEDS: Albuterol 2.5 MG/3 ML NEBULIZER IH SCH ×5 (03:40→20:43)
[2017-04-25 05:08] LABS: BUN/Creatinine Ratio 42 (6-26); Blood Urea Nitrogen 31 mg/dL (7-20); Calcium 9.4 mg/dL (8.6-10.8); Carbon Dioxide 33 mEq/L (19-29); Chloride 102 mEq/L (98-109); Glucose 141 mg/dL (70-99); Osmolality,Calculated 305 (280-300); Potassium 3.8 mEq/L (3.5-4.5); Red Cell Distribution Width 22.5 % (11.5-14.5); Sodium 143 mEq/L (136-145); eGFR For African Americans > 60 (> 60); eGFR For Non-African Americans > 60 (> 60)
[2017-04-25 05:10] LABS: Hematocrit 30.6 % (35.3-44.9); Hemoglobin 8.9 g/dL (11.5-15.4); Mean Corpuscular HGB Conc 29.1 g/dL (31.6-35.5); Mean Corpuscular Hemoglobin 28.6 pg (28.0-33.3); Mean Corpuscular Volume 98.4 fL (83.0-100.0); Mean Platelet Volume 9.6 fL (9.4-12.4); Platelet Count 390 K/mcL (140-400); Red Blood Count 3.11 M/mcL (3.82-4.97)
[2017-04-25] MEDS: Insulin LISPRO 300 UNITS/3 ML VIAL SQ SCH ×4 (06:39→20:14)
--- NOTE | 2017-04-25 07:24 | Internal Med Progress Note ---
<Mau Arriaza - Last Filed: 04/25/17 15:01> Date of Encounter: 04/25/17 Time of Encounter: 09:23 - Assessment and plan (1) HCAP (healthcare-associated pneumonia) Current Visit: Yes Status: Acute (2) Acute exacerbation of chronic obstructive airways disease Current Visit: Yes Status: Acute (3) Acute on chronic diastolic CHF (congestive heart failure) Current Visit: Yes Status: Acute (4) Hypokalemia Current Visit: No Status: Acute Assessment and plan: Resolved (5) Hypoxemic respiratory failure, chronic Current Visit: Yes Status: Acute Assessment and plan: Acute on chronic hypoxic respiratory failure secondary to acute diastolic CHF exacerbation in combination with acute COPD exacerbation due to healthcare associated pneumonia present upon admission Heart rate was more than 100 and WBC was 23.4 Increase dose of Lasix IV up to 40 mg times a day, strict I's and O's, daily weight I/O up 250 Due to increased SOB will continue prednisone, cefepime day 5 (the patient received 1 dose of vancomycin at the ER) Start Levaquin Continue DuoNeb's, BiPAP Will continue to treat (6) Tobacco abuse Current Visit: No Status: Acute (7) Atrial fibrillation Current Visit: No Status: Chronic Assessment and plan: Continue metoprolol, diltiazem, aspirin Qualifiers: Atrial fibrillation type: chronic Qualified Code(s): I48.2 - Chronic atrial fibrillation (8) Diabetes mellitus Current Visit: Yes Status: Chronic Assessment and plan: Insulin sliding scale Qualifiers: Diabetes mellitus type: type 2 Diabetes mellitus complication status: with hyperglycemia Diabetes mellitus senior care insulin use: without continuous churn buttermaker use Qualified Code(s): E11.65 - Type 2 diabetes mellitus with hyperglycemia (9) TYE (obstructive sleep apnea) Current Visit: Yes Status: Chronic (10) Sepsis Current Visit: Yes Status: Resolved Qualifiers: Sepsis type: sepsis due to unspecified organism Qualified Code(s): A41.9 - Sepsis, unspecified organism - Time Spent With Patient 25 - 35 minutes - Subjective Interval history: Feeling more short of breath and now having pain in her right side when she takes deep breaths, still brining up yellowish sputum, no chest pain or fevers or abdominal pain or dysuria. Pt ready to go home and wants to go to [facility] wants to stay in [place] and not go back to [place]. - Constitutional Vitals: Temp Pulse Resp BP Pulse Ox 97.8 F 88 21 100/67 97 04/25/17 03:26 04/25/17 03:26 04/25/17 03:40 04/25/17 03:40 04/25/17 03:40 General appearance: Present: A&O X 3, morbidly obese, pleasant - Eye Eye exam: Present: PERRL, conjuntiva pink, sclera anicteric Pupils: Present: PERRL - Respiratory Respiratory exam: Present: rhonchi (Mild on the right lower base), wheezes ( Mild in all lung mcmahon). Absent: accessory muscle use, chest wall tenderness, decreased breath sounds, prolonged expiratory phase, rales, respiratory distress - Cardiovascular Cardiovascular exam: Present: RRR, +S1, +S2. Absent: diastolic murmur, gallop, rubs, systolic murmur - GI/Abdominal GI/Abdominal exam: Present: normal bowel sounds, soft, no peritoneal signs. Absent: distended, tenderness - Extremities Exam Extremities exam: Present: pedal edema (2+ Edema), warm, radial pulses palpable and symmetrical. Absent: calf tenderness, cyanotic - Back Exam Back exam: Present: full ROM. Absent: CVA tenderness (L), CVA tenderness (R), vertebral tenderness - Neurological Exam Neurological exam: Present: CN II-XII intact, oriented X3, no focal deficits. Absent: pronater drift, facial droop, speech deficit - Skin Skin exam: Present: dry, intact Internal Medicine: Result - Labs CBC & Chem 7: 04/25/17 04:38 04/25/17 04:38 Labs: Short CBC 04/25/17 Range/Units 04:38 WBC 19.2 H (4.3-11.1) K/mcL Hgb 8.9 L (11.5-15.4) g/dL Hct 30.6 L (35.3-44.9) % Plt Count 390 (140-400) K/mcL [facility] 04/25/17 04:38 Sodium 143 Potassium 3.8 Chloride 102 Carbon Dioxide 33 H BUN 31 H Creatinine 0.74 Glucose 141 H Calcium 9.4 Consult Discharge Plan - Plan Referrals: Aleksey Huggins DO [Primary Care Provider] - (web request sent on 04/24/17) <Jose Juan-Ricky Dorsey - Last Filed: 04/25/17 15:36> Date of Encounter: 04/25/17 - Constitutional Vitals: Temp Pulse Resp BP Pulse Ox 98.5 F 66 18 98/67 96 04/25/17 11:11 04/25/17 11:11 04/25/17 11:24 04/25/17 11:11 04/25/17 11:24 Internal Medicine: Result - Labs CBC & Chem 7: 04/25/17 04:38 04/25/17 04:38 Labs: Short CBC 04/25/17 Range/Units 04:38 WBC 19.2 H (4.3-11.1) K/mcL Hgb 8.9 L (11.5-15.4) g/dL Hct 30.6 L (35.3-44.9) % Plt Count 390 (140-400) K/mcL [facility] 04/25/17 04:38 Sodium 143 Potassium 3.8 Chloride 102 Carbon Dioxide 33 H BUN 31 H Creatinine 0.74 Glucose 141 H Calcium 9.4 - Attending Attestation I examined this patient and my medical decision-making was reviewed with the Resident Physician. I agree with the documented findings, disposition and treatment plan as described except to the extent set forth below. Patient is a 56-year-old female with past medical history of asthma, CHF, COPD, diabetes, hyperlipidemia and hypertension. Admitted for healthcare associated pneumonia and COPD and CHF exacerbation. Currently on Lasix and DuoNeb breathing treatment. Patient is also on cefepime and Levaquin. No acute events or complaints at present.
[2017-04-25] MEDS: Budesonide/Formoterol 160/4.5 MDI IH SCH ×2 (07:32→20:43)
[2017-04-25] MEDS: Cefepime HCl 2,000 MG in Water for inj. (sterile) 20 ML IVP SCH ×2 (07:43→17:13)
[2017-04-25] MEDS: Aspirin 325 MG TABLET PO SCH (07:45)
[2017-04-25] MEDS: Furosemide 40 MG/4 ML VIAL IVP SCH ×3 (07:45→17:13)
[2017-04-25] MEDS: Diltiazem CD (24hr) 180 MG CAPSULE PO SCH (07:46)
[2017-04-25] MEDS: Levofloxacin 750 MG/150 ML 750 MG/150 ML BAG IVPB SCH (07:46)
[2017-04-25] MEDS: *HR* Heparin 5,000 UNIT/ML VIAL SQ SCH ×2 (07:46→17:12)
[2017-04-25] MEDS: predniSONE 20 MG TABLET PO SCH (07:46)
[2017-04-25] MEDS: *HR* HYDROcodone/Acet 5/325 mg TABLET PO PRN (07:49)
[2017-04-25] MEDS: Nicotine 14 MG PATCH.TD24 TD SCH (20:06)
[2017-04-26] MEDS: Cefepime HCl 2,000 MG in Water for inj. (sterile) 20 ML IVP SCH ×2 (00:05→08:23)
[2017-04-26] MEDS: *HR* Heparin 5,000 UNIT/ML VIAL SQ SCH ×3 (00:07→17:50)
[2017-04-26] MEDS: Melatonin 3 MG TABLET PO PRN (00:10)
[2017-04-26] MEDS: Albuterol 2.5 MG/3 ML NEBULIZER IH SCH ×7 (00:15→23:42)
[2017-04-26 04:59] LABS: Hemoglobin 8.4 g/dL (11.5-15.4); Mean Corpuscular Hemoglobin 28.5 pg (28.0-33.3); Mean Corpuscular Volume 98.3 fL (83.0-100.0); Mean Platelet Volume 9.9 fL (9.4-12.4); Nucleated Red Blood Cells 1.2 /100 WBC (0); Platelet Count 346 K/mcL (140-400); Red Blood Count 2.95 M/mcL (3.82-4.97); Red Cell Distribution Width 22.3 % (11.5-14.5)
[2017-04-26 06:12] LABS: Anisocytosis 1+ (Not Present); Lymphocytes # 3.5 K/mcL (0.6-4.6); Monocytes # 0.4 K/mcL (0.0-1.3); Neutrophils # 15.5 K/mcL (1.6-8.9); Platelet Estimate Normal (Normal)
[2017-04-26 06:13] LABS: Poikilocytosis 1+ (Not Present); Polychromasia 1+ (Not Present)
[2017-04-26] MEDS: Budesonide/Formoterol 160/4.5 MDI IH SCH ×2 (07:30→20:15)
[2017-04-26] MEDS: Insulin LISPRO 300 UNITS/3 ML VIAL SQ SCH ×4 (08:15→20:02)
--- NOTE | 2017-04-26 08:15 | Internal Med Progress Note ---
<Mau Arriaza - Last Filed: 04/26/17 14:12> Date of Encounter: 04/26/17 Time of Encounter: 09:00 - Assessment and plan (1) Hypoxemic respiratory failure, chronic Current Visit: Yes Status: Acute Assessment and plan: Acute on chronic hypoxic respiratory failure secondary to acute diastolic CHF exacerbation in combination with acute COPD exacerbation due to healthcare associated pneumonia present upon admission Heart rate was more than 100 and WBC was 23.4 Increase dose of Lasix IV up to 40 mg times a day, strict I's and O's, daily weight I/O up 250 Due to increased SOB will continue prednisone, cefepime day 5 (the patient received 1 dose of vancomycin at the ER) Start Levaquin Continue DuoNeb's, BiPAP Will continue to treat plan for DC tomorrow to home. She already has home O2 and Bi-Pap set up. (2) HCAP (healthcare-associated pneumonia) Current Visit: Yes Status: Acute (3) Acute exacerbation of chronic obstructive airways disease Current Visit: Yes Status: Acute (4) Acute on chronic diastolic CHF (congestive heart failure) Current Visit: Yes Status: Acute (5) Hypokalemia Current Visit: No Status: Acute Assessment and plan: Resolved (6) Tobacco abuse Current Visit: No Status: Acute (7) Atrial fibrillation Current Visit: No Status: Chronic Assessment and plan: Continue metoprolol, diltiazem, aspirin Qualifiers: Atrial fibrillation type: chronic Qualified Code(s): I48.2 - Chronic atrial fibrillation (8) Diabetes mellitus Current Visit: Yes Status: Chronic Assessment and plan: Insulin sliding scale Qualifiers: Diabetes mellitus type: type 2 Diabetes mellitus complication status: with hyperglycemia Diabetes mellitus prison insulin use: without intermediate teacher use Qualified Code(s): E11.65 - Type 2 diabetes mellitus with hyperglycemia (9) TYE (obstructive sleep apnea) Current Visit: Yes Status: Chronic (10) Sepsis Current Visit: Yes Status: Resolved Qualifiers: Sepsis type: sepsis due to unspecified organism Qualified Code(s): A41.9 - Sepsis, unspecified organism - Subjective Interval history: Feeling more short of breath and now having pain in her right side when she takes deep breaths, still brining up yellowish sputum, no chest pain or fevers or abdominal pain or dysuria. Pt ready to go home and wants to go to [facility] wants to stay in [place] and not go back to [place]. - Constitutional Vitals: Temp Pulse Resp BP Pulse Ox 97.7 F 73 18 106/65 90 04/26/17 07:49 04/26/17 07:49 04/26/17 07:49 04/26/17 07:49 04/26/17 07:49 General appearance: Present: A&O X 3, morbidly obese, pleasant - Head Head exam: Present: atraumatic, normocephalic - Eye Eye exam: Present: PERRL, conjuntiva pink, sclera anicteric Pupils: Present: PERRL - Neck Neck exam general surgery: Present: supple, trachea midline. Absent: lymphadenopathy - Respiratory Respiratory exam: Present: wheezes (Bilaterally though all lung mcmahon). Absent : accessory muscle use, rales, rhonchi - Cardiovascular Cardiovascular exam: Present: RRR, +S1, +S2. Absent: diastolic murmur, gallop, rubs, systolic murmur - Extremities Exam Extremities exam: Present: pedal edema (2+ bilaterally), warm, radial pulses palpable and symmetrical. Absent: calf tenderness, cyanotic - Neurological Exam Neurological exam: Present: CN II-XII intact, oriented X3, no focal deficits. Absent: pronater drift, facial droop, speech deficit - Skin Skin exam: Present: dry, intact Internal Medicine: Result - Labs CBC & Chem 7: 04/26/17 04:20 04/25/17 04:38 Labs: Short CBC 04/26/17 Range/Units 04:20 WBC 19.4 H (4.3-11.1) K/mcL Hgb 8.4 L (11.5-15.4) g/dL Hct 29.0 L (35.3-44.9) % Plt Count 346 (140-400) K/mcL Neutrophils # 15.5 H (1.6-8.9) K/mcL Consult Discharge Plan - Plan Referrals: Aleksey Huggins DO [Primary Care Provider] - (web request sent on 04/24/17) <Jose Juan-Ricky Dorsey - Last Filed: 04/26/17 14:37> Date of Encounter: 04/26/17 - Constitutional Vitals: Temp Pulse Resp BP Pulse Ox 97.9 F 76 17 105/59 95 04/26/17 11:46 04/26/17 11:46 04/26/17 11:46 04/26/17 11:46 04/26/17 11:46 Internal Medicine: Result - Labs CBC & Chem 7: 04/26/17 04:20 04/25/17 04:38 Labs: Short CBC 04/26/17 Range/Units 04:20 WBC 19.4 H (4.3-11.1) K/mcL Hgb 8.4 L (11.5-15.4) g/dL Hct 29.0 L (35.3-44.9) % Plt Count 346 (140-400) K/mcL Neutrophils # 15.5 H (1.6-8.9) K/mcL - Attending Attestation I examined this patient and my medical decision-making was reviewed with the Resident Physician. I agree with the documented findings, disposition and treatment plan as described except to the extent set forth below. I seen and examined the patient. Patient states she feels better. She is tolerating BiPAP well at night. Currently at baseline O2 requirements. Anticipate discharge tomorrow in a.m. No other acute events or complaints.
[2017-04-26] MEDS: predniSONE 20 MG TABLET PO SCH (08:22)
[2017-04-26] MEDS: Aspirin 325 MG TABLET PO SCH (08:22)
[2017-04-26] MEDS: Diltiazem CD (24hr) 180 MG CAPSULE PO SCH (08:22)
[2017-04-26] MEDS: Furosemide 40 MG/4 ML VIAL IVP SCH ×3 (08:22→17:50)
[2017-04-26] MEDS: Levofloxacin 750 MG/150 ML 750 MG/150 ML BAG IVPB SCH (08:24)
[2017-04-26] MEDS ORDERED: cefTRIAXone 2,000 MG in Water for inj. (sterile) 20 ML IVP SCH (14:00)
--- NOTE | 2017-04-26 14:31 | Discharge Summary ---
<Mau Arriaza - Last Filed: 04/26/17 14:59> Date of Encounter: 04/26/17 Time of Encounter: 08:00 - Discharge Diagnosis (1) Hypoxemic respiratory failure, chronic Priority: Primary Status: Acute (2) HCAP (healthcare-associated pneumonia) Priority: Primary Status: Acute (3) Acute exacerbation of chronic obstructive airways disease Priority: Primary Status: Acute (4) Acute on chronic diastolic CHF (congestive heart failure) Priority: Primary Status: Acute (5) Hypokalemia Priority: Primary Status: Acute (6) Tobacco abuse Priority: Primary Status: Acute (7) Atrial fibrillation Priority: Secondary Status: Chronic Qualifiers: Atrial fibrillation type: chronic Qualified Code(s): I48.2 - Chronic atrial fibrillation (8) Diabetes mellitus Priority: Primary Status: Chronic Qualifiers: Diabetes mellitus type: type 2 Diabetes mellitus complication status: with hyperglycemia Diabetes mellitus long-term insulin use: without truck terminal manager use Qualified Code(s): E11.65 - Type 2 diabetes mellitus with hyperglycemia (9) TYE (obstructive sleep apnea) Priority: Secondary Status: Chronic (10) Sepsis Priority: Primary Status: Resolved Qualifiers: Sepsis type: sepsis due to unspecified organism Qualified Code(s): A41.9 - Sepsis, unspecified organism - Discharge Medications Prescriptions: Cefdinir [Omnicef] 300 mg PO DAILY #5 capsule Levofloxacin [Levaquin] 750 mg PO DAILY #5 tablet predniSONE [PredniSONE] 40 mg PO DAILY #10 tablet Home Medications: Aclidinium [place] [Tudorza Pressair] 1 puff IH BID 09/08/15 [History] Albuterol Sulfate [Proair Hfa] 2 puff IH Q4H PRN 09/08/15 [History] Simvastatin [Zocor] 40 mg PO HS 09/08/15 [History] Aspirin 325 mg PO DAILY #60 tablet 09/19/15 [Rx] Diltiazem CD (24hr) [Cardizem CD] 360 mg PO DAILY #30 cap.er.24h 09/19/15 [Rx] Metoprolol [Lopressor] 50 mg PO BID #60 tablet 09/19/15 [Rx] Ipratropium/Albuterol Neb [Duoneb] 3 ml IH [id number] PRN inh 12/08/16 [Rx] metFORMIN [Glucophage] 500 mg PO BIDWM #60 tablet 01/27/17 [Rx] Furosemide [Lasix] 60 mg PO BID #45 tablet 03/21/17 [Rx] Docusate [Colace] 100 mg PO BID PRN capsule 03/24/17 [Rx] Oxygen 5 l .ROUTE AD #0 03/24/17 [Rx] Fluticasone/Vilanterol [Breo Ellipta 100-25 Mcg INH] 1 puff IH DAILY 04/22/17 [ History] Albuterol Neb [Proventil Neb] 2.5 mg IH [id number] inhsol 04/26/17 [Rx] Budesonide/Formoterol 160/4.5 [Symbicort 160/4.5] 2 puff IH BIDR inhaler [Rx] Cefdinir [Omnicef] 300 mg PO DAILY #5 capsule 04/26/17 [Rx] HYDROcodone/Acet 5/325 mg [[place] 5-325 mg] 1 tab PO Q6HR PRN tablet 04/26/17 [ Rx] Insulin LISPRO [HumaLOG] 0 units SQ TIDAC vial 04/26/17 [Rx] Levofloxacin [Levaquin] 750 mg PO DAILY #5 tablet 04/26/17 [Rx] Melatonin 3 mg PO HS PRN tablet 04/26/17 [Rx] Nicotine Patch [Nicoderm] 14 mg TD Q24H patch.td24 04/26/17 [Rx] predniSONE [PredniSONE] 40 mg PO DAILY #10 tablet 04/26/17 [Rx] Allergies/Adverse Reactions: 3 Allergy/AdvReac Type Severity Reaction Status Date / Time Penicillins Allergy Rash Verified 03/21/17 21:50 Date of admission: 04/21/17 18:30 Primary care physician: Aleksey Huggins DO Consults: 04/21/17 19:40 Consult to Stable Helper [CONS] Routine Reason for SW Consult: advance directives 04/23/17 09:38 Consult to Occupational Therapy [CONS] Routine Comment: Evaluate, develop and implement POC Reason for Consult: eval Consult to Physical Therapy [CONS] Routine Comment: Evaluate, develop and implement POC Reason for Consult: eval Discharging clinician: Jorge Leal Anticipated date of discharge: 04/27/17 - Patient Status Disposition: Home, Self-Care Condition: Fair Functional capacity at discharge: independent ambulation Overall status at discharge: patient is back to baseline - Discharge Instructions Follow Up With: Aleksey Huggins DO [Primary Care Provider] - (web request sent on 04/24/17) Additional Instructions: Consider trending her CBC to be sure her white blood cell count normalized. - Diet and Activity Activity: resume usual activities as tolerated Diet: advance to your usual diet Interval History: Pt is doing well today she is no longer as short of breath . No longer having any fevers or chills. Some pain dysuria or any pain anywhere else. She is having no nausea or vomiting. Said the breathing overall is better. She is having his BiPAP less than what she first arrived. Hospital course: Ms. Kyle is a 56 year old female who presented to the emergency department on 04/21/17 for 2 days of gradually worsening shortness of breath worse with exertion. She did have history of COPD she was admitted for a similar episode approximately one month ago. Patient does use CPAP at night and does have oxygen at home. In the ED patient was given 3 DuoNeb treatments started on BiPAP. As well as having an x-ray that showed left lower lobe infiltrate shows an elevated BNP she was admitted to the hospitalist service at this time while receiving IV Lasix and nitroglycerin paste as well as starting antibiotics. Due to patient's recent stay at a nursing facility she was diagnosed with hospital-acquired pneumonia and they started cefepime and Levaquin. Vancomycin was given in the emergency department and then stop. Blood cultures were pending but denied up growing anything. Patient did have an elevated white count and this is being trended and did trend down from when she first arrived. She was also diagnosed with acute exacerbation of COPD started on prednisone 40 mg daily as well as to an albuterol when necessary as well as starting BiPAP as needed. Patient does have atrial fibrillation but she is on no meds. She also had CHF she was given 40 mg of Lasix twice daily. Patient got 5 days worth of Levaquin and cefepime. On day 5 she was changed to Rocephin from cefepime but continued on the Levaquin. She will get 5 days of these antibiotics we will send her home with 5 days of Levaquin as well as Omnicef to continue her age Treatment. We will also send her home with five-day high-dose 40 mg of prednisone. To help with the COPD exacerbation. Patient does have BiPAP as well as DuoNeb nebs at home. She also has home oxygen if needed. Constipation going to the [facility]CF and she preferred going home and she has also felt home. Patient is now stable and doing well she is discharged home in stable condition. Time spent discussing smoking cessation with patient: more than 10 minutes - Time Spent with Patient Total time spent providing and/or coordinating discharge services: Greater than 30 minutes - Constitutional Vitals: Temp Pulse Resp BP Pulse Ox 97.9 F 76 17 105/59 95 04/26/17 11:46 04/26/17 11:46 04/26/17 11:46 04/26/17 11:46 04/26/17 11:46 General appearance: Present: A&O X 3, morbidly obese, pleasant - Head Head exam: Present: atraumatic, normocephalic - Eye Eye exam: Present: PERRL, conjuntiva pink, sclera anicteric Pupils: Present: PERRL - Neck Neck exam general surgery: Present: supple, trachea midline. Absent: lymphadenopathy - Respiratory Respiratory exam: Present: wheezes (Bilaterally in the lungs throughout.). Absent: accessory muscle use, rales, rhonchi - Cardiovascular Cardiovascular exam: Present: RRR, +S1, +S2. Absent: diastolic murmur, gallop, rubs, systolic murmur - GI/Abdominal GI/Abdominal exam: Present: normal bowel sounds, soft, no peritoneal signs. Absent: distended, tenderness - Extremities Exam Extremities exam: Present: pedal edema (Chronic 2+ pitting edema.), warm, radial pulses palpable and symmetrical. Absent: calf tenderness, cyanotic - Neurological Exam Neurological exam: Present: CN II-XII intact, oriented X3, no focal deficits. Absent: pronater drift, facial droop, speech deficit - Skin Skin exam: Present: dry, intact <Jose Juan-Ricky Dorsey - Last Filed: 04/26/17 15:17> Date of Encounter: 04/26/17 Date of admission: 04/21/17 18:30 Primary care physician: Aleksey Huggins DO Consults: 04/21/17 19:40 Consult to Stable Helper [CONS] Routine Reason for SW Consult: advance directives 04/23/17 09:38 Consult to Occupational Therapy [CONS] Routine Comment: Evaluate, develop and implement POC Reason for Consult: eval Consult to Physical Therapy [CONS] Routine Comment: Evaluate, develop and implement POC Reason for Consult: eval Hospital course: Ms. Kyle is a 56 year old female - Time Spent with Patient Total time spent providing and/or coordinating discharge services: - Constitutional Vitals: Temp Pulse Resp BP Pulse Ox 97.9 F 76 17 105/59 95 04/26/17 11:46 04/26/17 11:46 04/26/17 11:46 04/26/17 11:46 04/26/17 11:46 - Attending Attestation I examined this patient and my medical decision-making was reviewed with the Resident Physician. I agree with the documented findings, disposition and treatment plan as described except to the extent set forth below.
[2017-04-26] MEDS: Nicotine 14 MG PATCH.TD24 TD SCH (19:59)
[2017-04-27] MEDS: *HR* Heparin 5,000 UNIT/ML VIAL SQ SCH ×2 (00:24→09:43)
[2017-04-27] MEDS: Albuterol 2.5 MG/3 ML NEBULIZER IH SCH ×3 (04:14→11:38)
[2017-04-27] MEDS: Budesonide/Formoterol 160/4.5 MDI IH SCH (07:57)
[2017-04-27 08:17] LABS: Hematocrit 30.5 % (35.3-44.9); Hemoglobin 8.9 g/dL (11.5-15.4); Mean Corpuscular HGB Conc 29.2 g/dL (31.6-35.5); Mean Corpuscular Hemoglobin 28.3 pg (28.0-33.3); Mean Corpuscular Volume 97.1 fL (83.0-100.0); Mean Platelet Volume 9.4 fL (9.4-12.4); Monocytes # 1.1 K/mcL (0.0-1.3); Nucleated Red Blood Cells 0.9 /100 WBC (0); Platelet Count 372 K/mcL (140-400); Red Blood Count 3.14 M/mcL (3.82-4.97); Red Cell Distribution Width 22.6 % (11.5-14.5)
[2017-04-27] MEDS: Insulin LISPRO 300 UNITS/3 ML VIAL SQ SCH (08:19)
--- NOTE | 2017-04-27 08:20 | Internal Med Progress Note ---
<Jorge Leal - Last Filed: 04/27/17 08:21> Date of Encounter: 04/27/17 Time of Encounter: 08:00 - Assessment and plan (1) Sepsis Current Visit: Yes Status: Resolved Assessment and plan: Sepsis secondary to acute COPD exacerbation and acute on chronic congestive heart failure Acute on chronic hypoxic respiratory failure secondary to acute diastolic CHF exacerbation in combination with acute COPD exacerbation due to healthcare associated pneumonia present upon admission Heart rate was more than 100 and WBC was 23.4 at admission patient's breathing status improved with IV Lasix, DuoNeb's, IV antibiotics, and steroids Patient safe for discharge with continued steroids, antibiotics, and returning home dose Lasix Continue patient home oxygen, DuoNeb, BiPAP Plan for DC today She already has home O2 and Bi-Pap set up. Qualifiers: Sepsis type: sepsis due to unspecified organism Qualified Code(s): A41.9 - Sepsis, unspecified organism (2) Hypoxemic respiratory failure, chronic Current Visit: Yes Status: Chronic Assessment and plan: Acute respiratory failure secondary to acute on chronic CHF and COPD exacerbation Plan as above (3) HCAP (healthcare-associated pneumonia) Current Visit: Yes Status: Acute Assessment and plan: Patient received IV antibiotics of Levaquin, cefepime, ceftriaxone, and vancomycin on hospital. Antibiotics were T escalated as appropriate Safe for discharge home with oral Levaquin and Omnicef (4) Acute exacerbation of chronic obstructive airways disease Current Visit: Yes Status: Acute Assessment and plan: Secondary to healthcare acquired pneumonia Plan as above (5) Acute on chronic diastolic CHF (congestive heart failure) Current Visit: Yes Status: Acute Assessment and plan: Patient improved with IV Lasix on hospital. Safe for discharge with continuing home dose of Lasix at 60 mg twice a day by mouth (6) Atrial fibrillation Current Visit: No Status: Chronic Assessment and plan: Continue metoprolol, diltiazem, aspirin Qualifiers: Atrial fibrillation type: chronic Qualified Code(s): I48.2 - Chronic atrial fibrillation (7) Diabetes mellitus Current Visit: Yes Status: Chronic Assessment and plan: Insulin sliding scale Qualifiers: Diabetes mellitus type: type 2 Diabetes mellitus complication status: with hyperglycemia Diabetes mellitus music promoter insulin use: without assisted use Qualified Code(s): E11.65 - Type 2 diabetes mellitus with hyperglycemia (8) TYE (obstructive sleep apnea) Current Visit: Yes Status: Chronic (9) Tobacco abuse Current Visit: No Status: Acute Assessment and plan: Encourage smoking cessation - Subjective Interval history: Patient continued do well this morning. She is sitting comfortably in bed. Has no complaints of worsening shortness of breath, fever, chest pain. She feels safe for discharge. - Constitutional Vitals: Temp Pulse Resp BP Pulse Ox 97.6 F 93 16 112/70 99 04/27/17 07:00 04/27/17 07:00 04/27/17 07:57 04/27/17 07:00 04/27/17 07:57 General appearance: Present: A&O X 3, morbidly obese, pleasant Exam: General: Cooperative, pleasant, no acute distress, alert and oriented 3, answers questions appropriately HEENT: Normocephalic, atraumatic, neck supple, trachea midline, Conjunctiva pink , sclera anicteric, oral mucosa moist Respiratory: No accessory muscle usage, slight, diffuse wheezing present diffusely, rhonchi present Cardiovascular: Regular rate and rhythm, S1 and S2 present, no murmurs/rubs/ gallops/clicks appreciated GI/abdominal: Nondistended, nontender, soft, normal bowel sounds, no peritoneal signs Extremities: No calf tenderness, noncyanotic, 2+ pedal edema appreciated, warm, lower extremity pulses palpable and symmetrical Neurological: Alert and oriented 3, no facial droop, no focal deficits Skin: Dry, intact, normal color Internal Medicine: Result - Labs CBC & Chem 7: 04/27/17 08:10 04/25/17 04:38 Consult Discharge Plan - Plan Additional Instructions: Consider trending her CBC to be sure her white blood cell count normalized. Referrals: Aleksey Huggins DO [Primary Care Provider] - (web request sent on 04/24/17) Prescriptions: Cefdinir [Omnicef] 300 mg PO DAILY #5 capsule Levofloxacin [Levaquin] 750 mg PO DAILY #5 tablet RX: predniSONE [PredniSONE] 40 mg PO DAILY #10 tablet <Ricky Bettencourt - Last Filed: 04/27/17 09:54> Date of Encounter: 04/27/17 - Constitutional Vitals: Temp Pulse Resp BP Pulse Ox 97.6 F 93 16 112/70 99 04/27/17 07:00 04/27/17 07:00 04/27/17 07:57 04/27/17 07:00 04/27/17 07:57 Internal Medicine: Result - Labs CBC & Chem 7: 04/27/17 08:10 04/25/17 04:38 Labs: Short CBC 04/27/17 Range/Units 08:10 WBC 17.5 H (4.3-11.1) K/mcL Hgb 8.9 L (11.5-15.4) g/dL Hct 30.5 L (35.3-44.9) % Plt Count 372 (140-400) K/mcL Neutrophils # 13.7 H (1.6-8.9) K/mcL - Attending Attestation I examined this patient and my medical decision-making was reviewed with the Resident Physician. I agree with the documented findings, disposition and treatment plan as described except to the extent set forth below. I have seen and examined the patient. No new complaints. States she feels better. Stable for discharge home today. Patient is being discharged with Levaquin and Omnicef. Advised to continue DuoNeb breathing treatment at home. Advised to continue BiPAP and O2 via nasal cannula at home. Bilateral good air entry with no wheezing.
[2017-04-27] MEDS ORDERED: Furosemide 40 MG TABLET PO SCH (08:30)
[2017-04-27 08:33] LABS: Basophilic Stippling 1+ (Not Present); Lymphocytes # 2.8 K/mcL (0.6-4.6); Neutrophils # 13.7 K/mcL (1.6-8.9); Platelet Estimate Normal (Normal); Polychromasia 2+ (Not Present); Reactive Lymphocytes Present (Not Present)
--- NOTE | 2017-04-27 08:46 | Physician Discharge Referral ---
<MelJorge - Last Filed: 04/27/17 08:43> Home Health/Hosp Referral Info Transfer to: Home Health Provider in Charge Post Discharge: PCP - Diagnosis (1) Sepsis Priority: Primary Status: Resolved (2) Hypoxemic respiratory failure, chronic Priority: Primary Status: Chronic (3) HCAP (healthcare-associated pneumonia) Priority: Primary Status: Acute (4) Acute exacerbation of chronic obstructive airways disease Priority: Primary Status: Acute (5) Acute on chronic diastolic CHF (congestive heart failure) Priority: Primary Status: Acute (6) Atrial fibrillation Priority: Primary Status: Chronic (7) Diabetes mellitus Priority: Primary Status: Chronic (8) TYE (obstructive sleep apnea) Priority: Primary Status: Chronic (9) Tobacco abuse Priority: Primary Status: Acute - Respiratory Orders Oxygen / L per min (5 L/min) Smoking Cessation: Smoking cessation has been advised. For more information, call the [place] Tobacco Quit Line at 1-559-JZOK-NOW. - Diet/Nutrition Diet/Nutrition Orders: No Added Salt (SELIN), Cardiac - Activity Activity Orders: Ambulate - Services Needed Following services are medically necessary services: Nursing, Home Health Aide, Physical Therapy, Occupational Therapy - Transfer Medications Prescriptions: Cefdinir [Omnicef] 300 mg PO DAILY #5 capsule Levofloxacin [Levaquin] 750 mg PO DAILY #5 tablet RX: predniSONE [PredniSONE] 40 mg PO DAILY #10 tablet Home Medications: RX: Aclidinium [place] [Tudorza Pressair] 1 puff IH BID 09/08/15 [History] RX: Albuterol Sulfate [Proair Hfa] 2 puff IH Q4H PRN 09/08/15 [History] RX: Simvastatin [Zocor] 40 mg PO HS 09/08/15 [History] RX: Aspirin 325 mg PO DAILY #60 tablet 09/19/15 [Rx] RX: Diltiazem CD (24hr) [Cardizem CD] 360 mg PO DAILY #30 cap.er.24h 09/19/15 [ Rx] RX: Metoprolol [Lopressor] 50 mg PO BID #60 tablet 09/19/15 [Rx] RX: Ipratropium/Albuterol Neb [Duoneb] 3 ml IH [id number] PRN inh 12/08/16 [Rx] RX: metFORMIN [Glucophage] 500 mg PO BIDWM #60 tablet 01/27/17 [Rx] RX: Furosemide [Lasix] 60 mg PO BID #45 tablet 03/21/17 [Rx] RX: Docusate [Colace] 100 mg PO BID PRN capsule 03/24/17 [Rx] RX: Oxygen 5 l .ROUTE AD #0 03/24/17 [Rx] RX: Fluticasone/Vilanterol [Breo Ellipta 100-25 Mcg INH] 1 puff IH DAILY [History] Cefdinir [Omnicef] 300 mg PO DAILY #5 capsule 04/26/17 [Rx] Levofloxacin [Levaquin] 750 mg PO DAILY #5 tablet 04/26/17 [Rx] RX: Albuterol Neb [Proventil Neb] 2.5 mg IH [id number] inhsol 04/26/17 [Rx] RX: Budesonide/Formoterol 160/4.5 [Symbicort 160/4.5] 2 puff IH BIDR inhaler [Rx] RX: HYDROcodone/Acet 5/325 mg [[place] 5-325 mg] 1 tab PO Q6HR PRN tablet [Rx] RX: Insulin LISPRO [HumaLOG] 0 units SQ TIDAC vial 04/26/17 [Rx] RX: Melatonin 3 mg PO HS PRN tablet 04/26/17 [Rx] RX: Nicotine Patch [Nicoderm] 14 mg TD Q24H patch.td24 04/26/17 [Rx] RX: predniSONE [PredniSONE] 40 mg PO DAILY #10 tablet 04/26/17 [Rx] Allergies/Adverse Reactions: 3 Allergy/AdvReac Type Severity Reaction Status Date / Time Penicillins Allergy Rash Verified 03/21/17 21:50 Certification: Further, I certify that my clinical findings support that this patient is homebound (i.e. absences from home require considerable and taxing effort and are for medical reasons or adventist services or infrequently or short duration when for other reasons) because: Homebound Reason: Leaving home requires considerable and taxing effort due to condition, Severity of cardiac or pulmonary status limits activity tolerance Attestation: My signature below is to certify that this patient is under my care and that I, or nurse practitioner, or a physician's junior assistant manager working with me, has a face-to -face encounter with this patient. <Ricky Bettencourt - Last Filed: 04/27/17 09:54> - Respiratory Orders Smoking Cessation: Smoking cessation has been advised. For more information, call the [place] Tobacco Quit Line at 3-209-AKAW-NOW. Certification: Further, I certify that my clinical findings support that this patient is homebound (i.e. absences from home require considerable and taxing effort and are for medical reasons or adventist services or infrequently or short duration when for other reasons) because: Attestation: My signature below is to certify that this patient is under my care and that I, or nurse practitioner, or a physician's junior assistant manager working with me, has a face-to -face encounter with this patient.
[2017-04-27] MEDS ORDERED: Cefdinir 300 MG CAPSULE PO SCH (09:00)
[2017-04-27] MEDS ORDERED: levoFLOXacin 750 MG TABLET PO SCH (09:00)
[2017-04-27] MEDS: predniSONE 20 MG TABLET PO SCH (09:43)
[2017-04-27] MEDS: Diltiazem CD (24hr) 180 MG CAPSULE PO SCH (09:44)
[2017-04-27] MEDS: Aspirin 325 MG TABLET PO SCH (09:44)
[2017-04-27 10:52] VITALS: BP 137/83
[2017-04-27] MEDS: *HR* HYDROcodone/Acet 5/325 mg TABLET PO PRN (10:56)
== END 2017-04-27 12:05 | disposition home or self-care (01) | DRG 720 ==
LOC: 2ANU 14:35 → EMEROO 14:35 → 2ANU 16:36
PROVIDERS: ADMIT Internal Medicine; ATTEND Internal Medicine

== ENCOUNTER 2017-07-04 14:31 | Inpatient (IN) ==
--- NOTE | 2017-07-04 14:35 | Emergency Department Note ---
Disposition Clinical Impression: Hypercapnic respiratory failure, CHF exacerbation Disposition: Admitted As Inpatient Condition: Good Referrals: Aleksey Huggins DO [Primary Care Provider] - Forms: ED Satisfaction Letter General Adult HPI - General Chief complaint: ED Shortness of Breath/Dyspnea Stated complaint: ronan Time Seen by Provider: 07/04/17 14:33 - Related Data Home Medications Medication Instructions Recorded Confirmed Aclidinium Clark [Tudorza 1 puff IH BID 09/08/15 04/22/17 Pressair] Albuterol Sulfate [Proair Hfa] 2 puff IH Q4H PRN 09/08/15 04/22/17 Simvastatin [Zocor] 40 mg PO HS 09/08/15 04/22/17 Fluticasone/Vilanterol [Breo 1 puff IH DAILY 04/22/17 04/22/17 Ellipta 100-25 Mcg INH] Previous Rx's Medication Instructions Recorded Aspirin 325 mg PO DAILY #60 tablet 09/19/15 Diltiazem CD (24hr) [Cardizem CD] 360 mg PO DAILY #30 cap.er.24h 09/19/15 Metoprolol [Lopressor] 50 mg PO BID #60 tablet 09/19/15 Ipratropium/Albuterol Neb [Duoneb] 3 ml IH [id number] PRN inh 12/08/16 metFORMIN [Glucophage] 500 mg PO BIDWM #60 tablet 01/27/17 Furosemide [Lasix] 60 mg PO BID #45 tablet 03/21/17 Docusate [Colace] 100 mg PO BID PRN capsule 03/24/17 Oxygen 5 l .ROUTE AD #0 03/24/17 Albuterol Neb [Proventil Neb] 2.5 mg IH [id number] inhsol 04/26/17 Budesonide/Formoterol 160/4.5 2 puff IH BIDR inhaler 04/26/17 [Symbicort 160/4.5] Cefdinir [Omnicef] 300 mg PO DAILY #5 capsule 04/26/17 HYDROcodone/Acet 5/325 mg [[place] 1 tab PO Q6HR PRN tablet 04/26/17 5-325 mg] Insulin LISPRO [HumaLOG] 0 units SQ TIDAC vial 04/26/17 Levofloxacin [Levaquin] 750 mg PO DAILY #5 tablet 04/26/17 Melatonin 3 mg PO HS PRN tablet 04/26/17 Nicotine Patch [Nicoderm] 14 mg TD Q24H patch.td24 04/26/17 predniSONE [PredniSONE] 40 mg PO DAILY #10 tablet 04/26/17 Allergies Allergy/AdvReac Type Severity Reaction Status Date / Time Penicillins Allergy Rash Verified 03/21/17 21:50 Past Medical History - Past Medical History Medical history: Reports: arthritis, asthma, atrial fibrillation, CHF, COPD, diabetes, GERD, hyperlipidemia, hypertension, osteoporosis, valvular heart disease, other Surgical history: Reports: non-contributory, other Psychiatric history: Reports: no psych history - Social History Smoking Status: Former smoker Smokeless Tobacco Status: No Alcohol use: Reports: rarely Drug use: Reports: none Course Vital Signs Temperature 97.7 F 07/04/17 14:35 Pulse Rate 85 07/04/17 14:35 Respiratory Rate 32 07/04/17 14:35 Blood Pressure 124/107 07/04/17 14:35 O2 Sat by Pulse Oximetry 98 07/04/17 14:35 Temperature 97.7 F 07/04/17 14:46 Pulse Rate 77 07/04/17 17:11 Respiratory Rate 22 07/04/17 17:53 Blood Pressure 114/83 07/04/17 17:11 O2 Sat by Pulse Oximetry 98 07/04/17 17:53 Oxygen Delivery Oxygen Delivery Bipap Medical Decision Making - Lab Data Result diagrams: 07/04/17 14:31 07/04/17 14:31 Lab Results 07/04/17 07/04/17 07/04/17 Range/Units 14:31 14:31 14:31 WBC 11.0 (4.3-11.1) K/mcL RBC 3.55 L (3.82-4.97) M/mcL Hgb 9.0 L (11.5-15.4) g/dL Hct 33.3 L (35.3-44.9) % MCV 93.8 (83.0-100.0) fL MCH 25.4 L (28.0-33.3) pg MCHC 27.0 L (31.6-35.5) g/dL RDW 18.8 H (11.5-14.5) % Plt Count 519 H (140-400) K/mcL MPV 9.8 (9.4-12.4) fL Immature Gran % 0.5 (0-4) % Seg Neutrophils % 68.2 % Lymphocytes % 18.8 % Monocytes % 10.3 % Eosinophils % 1.7 % Basophils % 0.5 % Neutrophils # 7.5 (1.6-8.9) K/mcL Lymphocytes # 2.1 (0.6-4.6) K/mcL Monocytes # 1.1 (0.0-1.3) K/mcL Eosinophils # 0.2 (0.0-0.6) K/mcL Basophils # 0.1 (0.0-0.2) K/mcL Nucleated RBCs/100 WBC 2.0 H (0) /100 WBC Platelet Estimate Slight increase H (Normal) Polychromasia 1+ A (Not Present) Hypochromasia Present A (Not Present) Anisocytosis 2+ A (Not Present) VBG pH (7.32-7.42) pH Units VBG pCO2 (41-51) mmHg VBG pO2 (25-50) mmHg VBG HCO3 (21-27) mEq/L Sodium 140 (136-145) mEq/L Potassium 3.7 (3.5-5.1) mEq/L Chloride 94 L (98-107) mEq/L Carbon Dioxide 37 H (23-29) mEq/L BUN 21 H (6-20) mg/dL Creatinine 1.04 (0.60-1.20) mg/dL Est GFR ( Amer) > 60 (> 60) Est GFR (Non-Af Amer) 55 L (> 60) BUN/Creatinine Ratio 20 (6-26) Glucose 164 H (70-105) mg/dL Calculated Osmolality 297 (280-300) Lactic Acid 3.7 H (0.5-2.2) mmol/L Calcium 9.0 (8.6-10.3) mg/dL Troponin I (< 0.04) ng/mL B-Natriuretic Peptide (Less than 100) pg/mL Person Notif of Crit 07/04/17 07/04/17 07/04/17 Range/Units 14:31 14:31 15:46 WBC (4.3-11.1) K/mcL RBC (3.82-4.97) M/mcL Hgb (11.5-15.4) g/dL Hct (35.3-44.9) % MCV (83.0-100.0) fL MCH (28.0-33.3) pg MCHC (31.6-35.5) g/dL RDW (11.5-14.5) % Plt Count (140-400) K/mcL MPV (9.4-12.4) fL Immature Gran % (0-4) % Seg Neutrophils % % Lymphocytes % % Monocytes % % Eosinophils % % Basophils % % Neutrophils # (1.6-8.9) K/mcL Lymphocytes # (0.6-4.6) K/mcL Monocytes # (0.0-1.3) K/mcL Eosinophils # (0.0-0.6) K/mcL Basophils # (0.0-0.2) K/mcL Nucleated RBCs/100 WBC (0) /100 WBC Platelet Estimate (Normal) Polychromasia (Not Present) Hypochromasia (Not Present) Anisocytosis (Not Present) VBG pH 7.22 L (7.32-7.42) pH Units VBG pCO2 104 H* (41-51) mmHg VBG pO2 144 H (25-50) mmHg VBG HCO3 43 H (21-27) mEq/L Sodium (136-145) mEq/L Potassium (3.5-5.1) mEq/L Chloride (98-107) mEq/L Carbon Dioxide (23-29) mEq/L BUN (6-20) mg/dL Creatinine (0.60-1.20) mg/dL Est GFR ( Amer) (> 60) Est GFR (Non-Af Amer) (> 60) BUN/Creatinine Ratio (6-26) Glucose (70-105) mg/dL Calculated Osmolality (280-300) Lactic Acid (0.5-2.2) mmol/L Calcium (8.6-10.3) mg/dL Troponin I < 0.03 (< 0.04) ng/mL B-Natriuretic Peptide 863 H (Less than 100) pg/mL Person Notif of Crit 07/04/17 07/04/17 Range/Units 16:58 17:37 WBC (4.3-11.1) K/mcL RBC (3.82-4.97) M/mcL Hgb (11.5-15.4) g/dL Hct (35.3-44.9) % MCV (83.0-100.0) fL MCH (28.0-33.3) pg MCHC (31.6-35.5) g/dL RDW (11.5-14.5) % Plt Count (140-400) K/mcL MPV (9.4-12.4) fL Immature Gran % (0-4) % Seg Neutrophils % % Lymphocytes % % Monocytes % % Eosinophils % % Basophils % % Neutrophils # (1.6-8.9) K/mcL Lymphocytes # (0.6-4.6) K/mcL Monocytes # (0.0-1.3) K/mcL Eosinophils # (0.0-0.6) K/mcL Basophils # (0.0-0.2) K/mcL Nucleated RBCs/100 WBC (0) /100 WBC Platelet Estimate (Normal) Polychromasia (Not Present) Hypochromasia (Not Present) Anisocytosis (Not Present) VBG pH 7.17 L* (7.32-7.42) pH Units VBG pCO2 119 H* (41-51) mmHg VBG pO2 100 H (25-50) mmHg VBG HCO3 43 H (21-27) mEq/L Sodium (136-145) mEq/L Potassium (3.5-5.1) mEq/L Chloride (98-107) mEq/L Carbon Dioxide (23-29) mEq/L BUN (6-20) mg/dL Creatinine (0.60-1.20) mg/dL Est GFR ( Amer) (> 60) Est GFR (Non-Af Amer) (> 60) BUN/Creatinine Ratio (6-26) Glucose (70-105) mg/dL Calculated Osmolality (280-300) Lactic Acid 1.1 (0.5-2.2) mmol/L Calcium (8.6-10.3) mg/dL Troponin I (< 0.04) ng/mL B-Natriuretic Peptide (Less than 100) pg/mL Person Notif of Crit DR MICHAEL Critical Care Time Critical Care Time: Yes Total Critical Care Time: 30 Attestation: The high probability of a clinically significant, sudden or life threatening deterioration of the [] system(s) required my full and direct attention, intervention and personal management. The aggregate critical care time was [] minutes. This time is in addition to time spent performing reported procedures but includes the following: [] Data Review and interpretation [] Patient assessment and monitoring of vital signs [] Documentation [] Medication orders and management Attestation Statement - Attestation Attestation: I examined this patient and my medical decision-making was reviewed with the Resident Physician. I agree with the documented findings, disposition and treatment plan as described except to the extent set forth below. [id number] time provided Patient arrives by EMS with increased work of breathing. She is on BiPAP prehospital. Morbidly obese with tachypnea on exam. Seen in conjunction with the resident physician Dr. Michael
[2017-07-04] MEDS ORDERED: methylPREDNISolone 125 MG/2 ML VIAL IVP ONE (14:36)
[2017-07-04] MEDS ORDERED: Ipratropium/Albuterol Neb 3 ML IH ONE ×2 (14:36→17:45)
[2017-07-04] MEDS ORDERED: Furosemide 40 MG/4 ML VIAL IVP ONE (14:36)
[2017-07-04 15:04] LABS: Basophils % 0.5 %
[2017-07-04 15:05] LABS: Basophils # 0.1 K/mcL (0.0-0.2); Eosinophils # 0.2 K/mcL (0.0-0.6); Eosinophils % 1.7 %; Hematocrit 33.3 % (35.3-44.9); Immature Granulocytes % 0.5 % (0-4); Lymphocytes # 2.1 K/mcL (0.6-4.6); Lymphocytes % 18.8 %; Mean Corpuscular Hemoglobin 25.4 pg (28.0-33.3); Mean Corpuscular Volume 93.8 fL (83.0-100.0); Mean Platelet Volume 9.8 fL (9.4-12.4); Monocytes # 1.1 K/mcL (0.0-1.3); Monocytes % 10.3 %; Neutrophils # 7.5 K/mcL (1.6-8.9); Platelet Count 519 K/mcL (140-400); Red Blood Count 3.55 M/mcL (3.82-4.97); Red Cell Distribution Width 18.8 % (11.5-14.5); Segmented Neutrophils % 68.2 %
--- NOTE | 2017-07-04 15:07 | Emergency Department Note ---
Disposition Clinical Impression: Hypercapnic respiratory failure Qualifiers: Chronicity: acute Qualified Code(s): J96.02 - Acute respiratory failure with hypercapnia CHF exacerbation Qualifiers: Heart failure type: unspecified Qualified Code(s): I50.9 - Heart failure, unspecified Disposition: Admitted As Inpatient Condition: Good Referrals: Aleksey Huggins DO [Primary Care Provider] - Forms: ED Satisfaction Letter SOB HPI - General Chief Complaint: ED Shortness of Breath/Dyspnea Stated Complaint: ronan Time Seen by Provider: 07/04/17 14:33 Source: patient, EMS Mode of arrival: EMS Limitations: no limitations Nursing Notes Reviewed: Yes Vital Signs Reviewed: Yes - History of Present Illness Patient with a history of COPD and CHF presents to the emergency department for evaluation of shortness of breath. Patient was using 4 L of home oxygen as well as at home CPAP. Patient was found with pulse ox in the mid 70s. Patient was placed on BiPAP by squad with improvement to 80%. Patient was transitioned to our BiPAP and is in the mid 90s. The patient has normal mentation. Able to communicate and states that this is been going on for last couple of days. Patient is unsure whether this is her COPD or her CHF. Patient does have significant edema to the lower extremities. - Related Data Home Medications Medication Instructions Recorded Confirmed Aclidinium [place] [Tudorza 1 puff IH BID 09/08/15 04/22/17 Pressair] Albuterol Sulfate [Proair Hfa] 2 puff IH Q4H PRN 09/08/15 04/22/17 Simvastatin [Zocor] 40 mg PO HS 09/08/15 04/22/17 Fluticasone/Vilanterol [Breo 1 puff IH DAILY 04/22/17 04/22/17 Ellipta 100-25 Mcg INH] Previous Rx's Medication Instructions Recorded Aspirin 325 mg PO DAILY #60 tablet 09/19/15 Diltiazem CD (24hr) [Cardizem CD] 360 mg PO DAILY #30 cap.er.24h 09/19/15 Metoprolol [Lopressor] 50 mg PO BID #60 tablet 09/19/15 Ipratropium/Albuterol Neb [Duoneb] 3 ml IH [id number] PRN inh 12/08/16 metFORMIN [Glucophage] 500 mg PO BIDWM #60 tablet 01/27/17 Furosemide [Lasix] 60 mg PO BID #45 tablet 03/21/17 Docusate [Colace] 100 mg PO BID PRN capsule 03/24/17 Oxygen 5 l .ROUTE AD #0 03/24/17 Albuterol Neb [Proventil Neb] 2.5 mg IH [id number] inhsol 04/26/17 Budesonide/Formoterol 160/4.5 2 puff IH BIDR inhaler 04/26/17 [Symbicort 160/4.5] Cefdinir [Omnicef] 300 mg PO DAILY #5 capsule 04/26/17 HYDROcodone/Acet 5/325 mg [[place] 1 tab PO Q6HR PRN tablet 04/26/17 5-325 mg] Insulin LISPRO [HumaLOG] 0 units SQ TIDAC vial 04/26/17 Levofloxacin [Levaquin] 750 mg PO DAILY #5 tablet 04/26/17 Melatonin 3 mg PO HS PRN tablet 04/26/17 Nicotine Patch [Nicoderm] 14 mg TD Q24H patch.td24 04/26/17 predniSONE [PredniSONE] 40 mg PO DAILY #10 tablet 04/26/17 Allergies Allergy/AdvReac Type Severity Reaction Status Date / Time Penicillins Allergy Rash Verified 03/21/17 21:50 Limitations: ROS unobtainable due to patients medical condition Past Medical History - Past Medical History Medical history: Reports: arthritis, asthma, atrial fibrillation, CHF, COPD, diabetes, GERD, hyperlipidemia, hypertension, osteoporosis, valvular heart disease, other Surgical history: Reports: non-contributory, other Psychiatric history: Reports: no psych history - Social History Smoking Status: Former smoker Smokeless Tobacco Status: No Alcohol use: Reports: rarely Drug use: Reports: none Physical Exam General: Patient placed on BiPAP and her pulse ox is increased to 90%. Head: Normocephalic Atraumatic Eyes: PERRL, EOMI ENT: Airway patent, no stridor Neck: supple, no meningismus Chest: Decreased lung sounds bilaterally with rales at bases Cardiac: Regular rhythm Abdomen: soft, nontender, nondistended; no guarding, rebound, or tenderness to percussion Musculoskeletal: +3 pitting edema to the lower extremities. Skin: No rash, normal skin tone Neuro: Alert and Oriented to person, place but becomes winded with further questioning. No focal deficit, Course - Reevaluation(s) Reevaluation #1: Patient was reevaluated. The patient is awakened able to follow commands. Patient is able to open her eyes to touch and is able to give thumbs up. The patient does not appear to need intubation at this time. Will repeat VBG with the pending lactate. - Consultations Consultation #1: Discussed with hospitalist. Patient accepted for admission. Vital Signs Temperature 97.7 F 07/04/17 14:35 Pulse Rate 85 07/04/17 14:35 Respiratory Rate 32 07/04/17 14:35 Blood Pressure 124/107 07/04/17 14:35 O2 Sat by Pulse Oximetry 98 07/04/17 14:35 Temperature 97.7 F 07/04/17 14:46 Pulse Rate 77 07/04/17 17:11 Respiratory Rate 24 07/04/17 17:11 Blood Pressure 114/83 07/04/17 17:11 O2 Sat by Pulse Oximetry 100 07/04/17 17:11 Oxygen Delivery Oxygen Delivery Bipap Shortness of Breath/Dyspnea - Medical Records Medical records reviewed: Yes I reviewed the patient's medical records. - Lab Data Lab results reviewed: Yes I reviewed the patient's lab results. Result diagrams: 07/04/17 14:31 07/04/17 14:31 Lab Results 07/04/17 07/04/17 07/04/17 Range/Units 14:31 14:31 14:31 WBC 11.0 (4.3-11.1) K/mcL RBC 3.55 L (3.82-4.97) M/mcL Hgb 9.0 L (11.5-15.4) g/dL Hct 33.3 L (35.3-44.9) % MCV 93.8 (83.0-100.0) fL MCH 25.4 L (28.0-33.3) pg MCHC 27.0 L (31.6-35.5) g/dL RDW 18.8 H (11.5-14.5) % Plt Count 519 H (140-400) K/mcL MPV 9.8 (9.4-12.4) fL Immature Gran % 0.5 (0-4) % Seg Neutrophils % 68.2 % Lymphocytes % 18.8 % Monocytes % 10.3 % Eosinophils % 1.7 % Basophils % 0.5 % Neutrophils # 7.5 (1.6-8.9) K/mcL Lymphocytes # 2.1 (0.6-4.6) K/mcL Monocytes # 1.1 (0.0-1.3) K/mcL Eosinophils # 0.2 (0.0-0.6) K/mcL Basophils # 0.1 (0.0-0.2) K/mcL Nucleated RBCs/100 WBC 2.0 H (0) /100 WBC Platelet Estimate Slight increase H (Normal) Polychromasia 1+ A (Not Present) Hypochromasia Present A (Not Present) Anisocytosis 2+ A (Not Present) VBG pH (7.32-7.42) pH Units VBG pCO2 (41-51) mmHg VBG pO2 (25-50) mmHg VBG HCO3 (21-27) mEq/L Sodium 140 (136-145) mEq/L Potassium 3.7 (3.5-5.1) mEq/L Chloride 94 L (98-107) mEq/L Carbon Dioxide 37 H (23-29) mEq/L BUN 21 H (6-20) mg/dL Creatinine 1.04 (0.60-1.20) mg/dL Est GFR ( Amer) > 60 (> 60) Est GFR (Non-Af Amer) 55 L (> 60) BUN/Creatinine Ratio 20 (6-26) Glucose 164 H (70-105) mg/dL Calculated Osmolality 297 (280-300) Lactic Acid 3.7 H (0.5-2.2) mmol/L Calcium 9.0 (8.6-10.3) mg/dL Troponin I (< 0.04) ng/mL B-Natriuretic Peptide (Less than 100) pg/mL 07/04/17 07/04/17 07/04/17 Range/Units 14:31 14:31 15:46 WBC (4.3-11.1) K/mcL RBC (3.82-4.97) M/mcL Hgb (11.5-15.4) g/dL Hct (35.3-44.9) % MCV (83.0-100.0) fL MCH (28.0-33.3) pg MCHC (31.6-35.5) g/dL RDW (11.5-14.5) % Plt Count (140-400) K/mcL MPV (9.4-12.4) fL Immature Gran % (0-4) % Seg Neutrophils % % Lymphocytes % % Monocytes % % Eosinophils % % Basophils % % Neutrophils # (1.6-8.9) K/mcL Lymphocytes # (0.6-4.6) K/mcL Monocytes # (0.0-1.3) K/mcL Eosinophils # (0.0-0.6) K/mcL Basophils # (0.0-0.2) K/mcL Nucleated RBCs/100 WBC (0) /100 WBC Platelet Estimate (Normal) Polychromasia (Not Present) Hypochromasia (Not Present) Anisocytosis (Not Present) VBG pH 7.22 L (7.32-7.42) pH Units VBG pCO2 104 H* (41-51) mmHg VBG pO2 144 H (25-50) mmHg VBG HCO3 43 H (21-27) mEq/L Sodium (136-145) mEq/L Potassium (3.5-5.1) mEq/L Chloride (98-107) mEq/L Carbon Dioxide (23-29) mEq/L BUN (6-20) mg/dL Creatinine (0.60-1.20) mg/dL Est GFR ( Amer) (> 60) Est GFR (Non-Af Amer) (> 60) BUN/Creatinine Ratio (6-26) Glucose (70-105) mg/dL Calculated Osmolality (280-300) Lactic Acid (0.5-2.2) mmol/L Calcium (8.6-10.3) mg/dL Troponin I < 0.03 (< 0.04) ng/mL B-Natriuretic Peptide 863 H (Less than 100) pg/mL 07/04/17 Range/Units 16:58 WBC (4.3-11.1) K/mcL RBC (3.82-4.97) M/mcL Hgb (11.5-15.4) g/dL Hct (35.3-44.9) % MCV (83.0-100.0) fL MCH (28.0-33.3) pg MCHC (31.6-35.5) g/dL RDW (11.5-14.5) % Plt Count (140-400) K/mcL MPV (9.4-12.4) fL Immature Gran % (0-4) % Seg Neutrophils % % Lymphocytes % % Monocytes % % Eosinophils % % Basophils % % Neutrophils # (1.6-8.9) K/mcL Lymphocytes # (0.6-4.6) K/mcL Monocytes # (0.0-1.3) K/mcL Eosinophils # (0.0-0.6) K/mcL Basophils # (0.0-0.2) K/mcL Nucleated RBCs/100 WBC (0) /100 WBC Platelet Estimate (Normal) Polychromasia (Not Present) Hypochromasia (Not Present) Anisocytosis (Not Present) VBG pH (7.32-7.42) pH Units VBG pCO2 (41-51) mmHg VBG pO2 (25-50) mmHg VBG HCO3 (21-27) mEq/L Sodium (136-145) mEq/L Potassium (3.5-5.1) mEq/L Chloride (98-107) mEq/L Carbon Dioxide (23-29) mEq/L BUN (6-20) mg/dL Creatinine (0.60-1.20) mg/dL Est GFR ( Amer) (> 60) Est GFR (Non-Af Amer) (> 60) BUN/Creatinine Ratio (6-26) Glucose (70-105) mg/dL Calculated Osmolality (280-300) Lactic Acid 1.1 (0.5-2.2) mmol/L Calcium (8.6-10.3) mg/dL Troponin I (< 0.04) ng/mL B-Natriuretic Peptide (Less than 100) pg/mL - Radiology Data Radiology results reviewed: Yes I reviewed the patient's radiology results. - EKG Data EKG attestation: Yes I reviewed and interpreted this EKG. EKG results narrative: EKG shows A. fib with ventricular rate of 81. No significant ST elevations or depressions. No change from previous of 04/21/17.
[2017-07-04 15:11] LABS: BUN/Creatinine Ratio 20 (6-26); Blood Urea Nitrogen 21 mg/dL (6-20); Carbon Dioxide 37 mEq/L (23-29); Chloride 94 mEq/L (98-107); Glucose 164 mg/dL (70-105); Osmolality,Calculated 297 (280-300); Potassium 3.7 mEq/L (3.5-5.1); Sodium 140 mEq/L (136-145); eGFR For African Americans > 60 (> 60); eGFR For Non-African Americans 55 (> 60)
[2017-07-04 15:27] LABS: Anisocytosis 2+ (Not Present); Polychromasia 1+ (Not Present)
[2017-07-04 15:28] LABS: Hypochromasia Present (Not Present)
[2017-07-04 15:49] LABS: VBG HCO3 43 mEq/L (21-27); VBG PCO2 104 mmHg (41-51); VBG PH 7.22 pH Units (7.32-7.42); VBG PO2 144 mmHg (25-50)
[2017-07-04 17:46] LABS: VBG HCO3 43 mEq/L (21-27); VBG PCO2 119 mmHg (41-51); VBG PH 7.17 pH Units (7.32-7.42); VBG PO2 100 mmHg (25-50)
--- NOTE | 2017-07-04 21:56 | Internal Med History&Physical ---
<WaleskaTheron bennett - Last Filed: 07/05/17 02:42> Date of Encounter: 07/05/17 Time of Encounter: 21:56 Assessment and Plan (1) Acute and chronic respiratory failure Current visit: Yes Status: Acute Pt in acute on chronic respiratory failure likely 2/2 to CHF exacerbation, possible COPD exacerbation as well Pt requiring BiPAP VBG: pH 7.22/pco2 104/po2 144/hco3 43, repeat 7.17/119/100/43 RT consulted Plan: continue BiPAP treat underlying causes: CHF: lasix COPD: breathing treatments, abx, steroids consider pulmonology consult Qualifiers: Respiratory failure complication: hypercapnia Qualified Code(s): J96.22 - Acute and chronic respiratory failure with hypercapnia (2) Acute on chronic diastolic CHF (congestive heart failure) Current visit: Yes Status: Acute acute exacerbation of chronic diastolic CHF CXR showed: "Vascular engorgement and cephalization is demonstrated with bilateral peribronchial cuffing and perivascular haziness. Bibasilar consolidation and bilateral pleural effusion." BNP: 863 Last Echo July 2016 "LVEF 65-70%. Normal left ventricular size and systolic function. Definity was given. Indeterminate left venticular diastoic function Mildly dilated RV with normal function. Mild-moderate mitral regurgitation. Moderate tricuspid regurgitation. Severe pulmonary hypertension. Estimated RVSP was 60 mmHg. IVC is dilated. Left Ventricular Wall Motion: Rest Echo Findings All wall segments showed normal motion." Patient received 40mg IV lasix in the ED Plan: patient is on 60mg PO lasix BID. Start 60mg IV BID lasix consider repeat ECHO (3) Acute exacerbation of chronic obstructive airways disease Current visit: No Status: Acute Possible COPD exacerbation on top of CHF Lungs sound more wheezy than crackly, but CXR, edema, and BNP point to CHF Plan: continue duonebs start IV solumedrol 60 Q8H with plans to ween Start Azithromycin 500mg IV Q24H (4) Tobacco abuse Current visit: Yes Status: Chronic Pt on nicotine patch at home. Plan: continue nicotine patch (5) HLD (hyperlipidemia) Current visit: Yes Status: Acute COntinue home statin Qualifiers: Hyperlipidemia type: pure hypercholesterolemia Qualified Code(s): E78.00 - Pure hypercholesterolemia, unspecified; E78.0 - Pure hypercholesterolemia (6) Atrial fibrillation Current visit: Yes Status: Chronic Rate controlled. Continue home diltiazem continue home aspirin. Pt not on home anticoagulation. CHADSVASC: 4: female, CHF, HTN, DM Qualifiers: Atrial fibrillation type: chronic Qualified Code(s): I48.2 - Chronic atrial fibrillation (7) Morbid obesity with BMI of 70 and over, adult Current visit: Yes Status: Chronic (8) Anemia Current visit: Yes Status: Acute Hx of chronic anemia. Patient appears at baseline. continue to monitor. Qualifiers: Anemia type: unspecified type Qualified Code(s): D64.9 - Anemia, unspecified (9) Non-insulin dependent type 2 diabetes mellitus Current visit: Yes Status: Chronic Not on home medications Glucose 164 continue to monitor Start SSI, accuchecks ACHS, diabetic diet (10) DVT prophylaxis Current visit: Yes Status: Acute Sub Q lovennox 40mg daily Internal Medicine - H&P: HPI Chief complaint: Shortness of Breath Admitted From: Emergency Dept Plans for Post Hospital Care: Home History of present illness: Ms. Kyle is a 56 year old female C PMHx of COPD on 4L home O2 and CPAP, dCHF , a fib, DM, GERD, HLD, HTN, Moderate MR and TR, Severe Pulmonary HTN who was brought in by EMS for SOB. She was foudn with a pulse ox in the 70s in the field. She was placed on BiPAP. Patient was transitioned to ED biPAPA and was sating int he low 90s. Patient somnolent at time but arousable and able to communicate answer questions appropriately. Lab work in the ED was significant fro normal WBC, hgb/hct at baseline for pt, bicarb 37, LA 3.7 repeat 1.1, negative troponin, BNP 863, and VBG of pH 7.22/pco2 104/po2 144/hco3 43, repeat 7.17/119/100/43. CXR showed: "Vascular engorgement and cephalization is demonstrated with bilateral peribronchial cuffing and perivascular haziness. Bibasilar consolidation and bilateral pleural effusion." Patient received Duonebs, 40mg IV lasix, and 125mg Solumedrol in the ED. Past Med Surg Social Fam HX - Past Medical History Medical history: arthritis, asthma, atrial fibrillation, CHF, COPD, diabetes, GERD, hyperlipidemia, hypertension, osteoporosis, valvular heart disease, other Psychiatric history: no psych history - Past Surgical History Surgical History: non-contributory, other - Social History Smoking Status: Former smoker Smokeless Tobacco Status: No Alcohol use: rarely Drug use: none - Family History Mother Living Status: Hx Family Cardiac Disorders: Yes Hx Family Endocrine Disorder: Yes (DM) Father Living Status: Hx Family Respiratory Disorders: Yes (Asthma, COPD, Emphysema) Internal Medicine - H&P: Meds Albuterol Sulfate [Proair Hfa] 2 puff IH Q4H PRN 09/08/15 [History] Simvastatin [Zocor] 40 mg PO HS 09/08/15 [History] Aspirin 325 mg PO DAILY #60 tablet 09/19/15 [Rx] Diltiazem CD (24hr) [Cardizem CD] 360 mg PO DAILY #30 cap.er.24h 09/19/15 [Rx] Metoprolol [Lopressor] 50 mg PO BID #60 tablet 09/19/15 [Rx] Ipratropium/Albuterol Neb [Duoneb] 3 ml IH [id number] PRN inh 12/08/16 [Rx] Furosemide [Lasix] 60 mg PO BID #45 tablet 03/21/17 [Rx] Fluticasone/Vilanterol [Breo Ellipta 100-25 Mcg INH] 1 puff IH DAILY 04/22/17 [ History] Albuterol Neb [Proventil Neb] 2.5 mg IH [id number] inhsol 04/26/17 [Rx] Melatonin 3 mg PO HS PRN tablet 04/26/17 [Rx] Nicotine Patch [Nicoderm] 14 mg TD Q24H patch.td24 04/26/17 [Rx] Oxygen 5 l NS AD 07/04/17 [History] 3 Allergy/AdvReac Type Severity Reaction Status Date / Time Penicillins Allergy Rash Verified 03/21/17 21:50 All Systems PM: A 14-system review of systems was performed and is negative for pertinent findings except as documented above in the HPI. - Constitutional Vitals: Temp Pulse Resp BP Pulse Ox 97.7 F 72 29 102/70 95 07/04/17 14:46 07/04/17 19:28 07/04/17 19:28 07/04/17 19:28 07/04/17 19:28 General appearance: Present: A&O X 3, morbidly obese, no acute distress, answers questions appropriately - Head Head exam: Present: atraumatic, normocephalic - Eye Eye exam: Present: PERRL, conjuntiva pink, sclera anicteric Pupils: Present: PERRL - Neck Neck exam general surgery: Present: supple, trachea midline - Respiratory Respiratory exam: Present: decreased breath sounds, rales, rhonchi, wheezes. Absent: accessory muscle use, CTAB - Cardiovascular Cardiovascular exam: Present: irregular rhythm - GI/Abdominal GI/Abdominal exam: Present: normal bowel sounds, soft, no peritoneal signs. Absent: distended, tenderness - Extremities Exam Extremities exam: Present: pedal edema, warm, radial pulses palpable and symmetrical. Absent: calf tenderness, cyanotic - Neurological Exam Neurological exam: Present: oriented X3, no focal deficits. Absent: facial droop, speech deficit - Skin Skin exam: Present: dry, intact Internal Med - H&P Results - Labs CBC & Chem 7: 07/04/17 14:31 07/04/17 14:31 <Danish Shelley P - Last Filed: 07/05/17 05:18> Date of Encounter: 07/05/17 Internal Medicine - H&P: HPI History of present illness: Ms. Kyle is a 56 year old female All Systems PM: A 10-system review of systems was performed and is negative for pertinent findings except as documented above in the HPI. - Constitutional Vitals: Temp Pulse Resp BP Pulse Ox 97.7 F 72 28 102/70 97 07/04/17 14:46 07/04/17 19:28 07/05/17 03:05 07/04/17 19:28 07/05/17 03:05 Internal Med - H&P Results - Labs CBC & Chem 7: 07/04/17 14:31 07/04/17 14:31 - Attending Attestation I examined this patient and my medical decision-making was reviewed with the Resident Physician. I agree with the documented findings, disposition and treatment plan as described except to the extent set forth below. 55/mL Morbidly obese. Admitted with worsening shortness of breath. Known to have a COPD/diastolic CHF exacerbation. Plan: IV diuresis. BiPAP Admitted as inpatient. Close monitoring of the respiratory status. I have examined this patient in the emergency room department room #3.
[2017-07-04] MEDS ORDERED: Furosemide 20 MG/2 ML VIAL IVP ONE (22:11)
[2017-07-04] MEDS: Ipratropium/Albuterol Neb 3 ML IH SCH (23:34)
[2017-07-05] MEDS: Azithromycin 500 MG in D5% in Water 250 ML IVPB SCH (00:06)
[2017-07-05] MEDS: methylPREDNISolone 125 MG/2 ML VIAL IVP SCH ×3 (00:07→17:38)
[2017-07-05] MEDS ORDERED: *HR* Dextrose 50 % in Water (Syg) 50 ML SYRINGE IVP PRN (01:24)
[2017-07-05] MEDS ORDERED: Dextrose Gel 15 GM/37.5 ML TUBE PO PRN ×2 (01:24)
[2017-07-05] MEDS ORDERED: D5% in Water 1,000 ML IVC PRN (01:24)
[2017-07-05] MEDS: Ipratropium/Albuterol Neb 3 ML IH SCH ×6 (03:03→23:52)
[2017-07-05 05:29] LABS: ABG Base Excess 13 mEq/L (-2 to 3); ABG HCO3 43 mEq/L (21-27); ABG Oxygen Saturation 97 % (95-98); ABG PCO2 91 mmHg (35-45); ABG PH 7.28 pH Units (7.32-7.45); ABG PO2 108 mmHg (85-104); ABG TCO2 46 mEq/L (20-26)
[2017-07-05 07:38] LABS: Basophils % 0.1 %; Hemoglobin 8.2 g/dL (11.5-15.4); Red Cell Distribution Width 19.1 % (11.5-14.5); Segmented Neutrophils % 91.9 %
[2017-07-05 07:39] LABS: Hematocrit 29.9 % (35.3-44.9); Immature Granulocytes % 0.3 % (0-4); Lymphocytes # 0.8 K/mcL (0.6-4.6); Lymphocytes % 5.7 %; Mean Corpuscular HGB Conc 27.4 g/dL (31.6-35.5); Mean Corpuscular Hemoglobin 25.1 pg (28.0-33.3); Mean Corpuscular Volume 91.4 fL (83.0-100.0); Mean Platelet Volume 9.8 fL (9.4-12.4); Monocytes # 0.3 K/mcL (0.0-1.3); Neutrophils # 13.1 K/mcL (1.6-8.9); Nucleated Red Blood Cells 0.9 /100 WBC (0); Platelet Count 424 K/mcL (140-400); Red Blood Count 3.27 M/mcL (3.82-4.97)
[2017-07-05 09:33] LABS: BUN/Creatinine Ratio 25 (6-26); Blood Urea Nitrogen 25 mg/dL (6-20); Calcium 8.6 mg/dL (8.6-10.3); Carbon Dioxide 41 mEq/L (23-29); Chloride 95 mEq/L (98-107); Glucose 147 mg/dL (70-105); Osmolality,Calculated 299 (280-300); Potassium 3.6 mEq/L (3.5-5.1); Sodium 141 mEq/L (136-145); eGFR For African Americans > 60 (> 60); eGFR For Non-African Americans 56 (> 60)
[2017-07-05] MEDS: Insulin LISPRO 300 UNITS/3 ML VIAL SQ SCH ×4 (09:37→22:07)
[2017-07-05] MEDS: Furosemide 40 MG/4 ML VIAL IVP SCH ×2 (10:09→17:37)
[2017-07-05] MEDS: Aspirin 325 MG TABLET PO SCH (10:09)
[2017-07-05] MEDS: Nicotine 14 MG PATCH.TD24 TD SCH (10:09)
[2017-07-05] MEDS: Diltiazem CD (24hr) 180 MG CAPSULE PO SCH (10:10)
[2017-07-05] MEDS: *HR* Enoxaparin 40 MG/0.4 ML SYRINGE SQ SCH (10:10)
--- NOTE | 2017-07-05 10:55 | Internal Med Progress Note ---
Date of Encounter: 07/05/17 Time of Encounter: 10:49 - Assessment and plan (1) Acute and chronic respiratory failure Current Visit: Yes Status: Acute Assessment and plan: Acute on chronic hypoxic and hypercapnic respiratory failure secondary to acute COPD exacerbation triggered by possible acute bacterial bronchitis in combination of acute diastolic CHF exacerbation Continue Lasix IV 60 mg twice a day, strict I's and daily weight Solu-Medrol IV, start Rocephin Check a respiratory viral panel Continue BiPAP [place] nebs Chest x-ray showed findings of congestive heart failure Qualifiers: Respiratory failure complication: hypercapnia Qualified Code(s): J96.22 - Acute and chronic respiratory failure with hypercapnia (2) Acute on chronic diastolic CHF (congestive heart failure) Current Visit: Yes Status: Acute (3) HLD (hyperlipidemia) Current Visit: Yes Status: Acute Qualifiers: Hyperlipidemia type: pure hypercholesterolemia Qualified Code(s): E78.00 - Pure hypercholesterolemia, unspecified; E78.0 - Pure hypercholesterolemia (4) Non-insulin dependent type 2 diabetes mellitus Current Visit: Yes Status: Chronic (5) Tobacco abuse Current Visit: Yes Status: Chronic Assessment and plan: Smoking cessation counseling, nicotine patch (6) Hypertension Current Visit: No Status: Chronic Qualifiers: Hypertension type: essential hypertension Qualified Code(s): I10 - Essential (primary) hypertension (7) Morbid obesity Current Visit: No Status: Chronic (8) TYE (obstructive sleep apnea) Current Visit: No Status: Chronic (9) Diabetes mellitus Current Visit: No Status: Chronic Assessment and plan: Insulin sliding scale Qualifiers: Diabetes mellitus type: type 2 Diabetes mellitus complication status: with hyperglycemia Diabetes mellitus long-term insulin use: without long term care pharmacist use Qualified Code(s): E11.65 - Type 2 diabetes mellitus with hyperglycemia - Subjective Interval history: Feeling very short of breath, bringing up yellowish phlegm, complaining of chills but no fevers recorded, no abdominal pain, no diarrhea or dysuria. No chest pain - Constitutional Vitals: Temp Pulse Resp BP Pulse Ox 97.7 F 88 19 102/75 89 07/04/17 14:46 07/05/17 09:39 07/05/17 09:39 07/05/17 09:39 07/05/17 09:41 General appearance: Present: A&O X 3, morbidly obese, no acute distress, answers questions appropriately - Head Head exam: Present: atraumatic, normocephalic - Eye Eye exam: Present: PERRL, conjuntiva pink, sclera anicteric Pupils: Present: PERRL - Neck Neck exam general surgery: Present: supple, trachea midline. Absent: lymphadenopathy - Respiratory Respiratory exam: Present: CTAB, rales, wheezes (Diffuse crackles or wheezing). Absent: accessory muscle use, rhonchi - Cardiovascular Cardiovascular exam: Present: RRR, +S1, +S2. Absent: diastolic murmur, gallop, rubs, systolic murmur - GI/Abdominal GI/Abdominal exam: Present: normal bowel sounds, soft, no peritoneal signs. Absent: distended, tenderness - Extremities Exam Extremities exam: Present: pedal edema (+3 nonpitting edema), warm, radial pulses palpable and symmetrical. Absent: calf tenderness, cyanotic - Neurological Exam Neurological exam: Present: CN II-XII intact, oriented X3, no focal deficits. Absent: pronater drift, facial droop, speech deficit Additional comments: Leigh catheter in place - Skin Skin exam: Present: dry, intact Internal Medicine: Result - Labs CBC & Chem 7: 07/05/17 07:09 07/05/17 07:09 Labs: Short CBC 07/05/17 Range/Units 07:09 WBC 14.3 H (4.3-11.1) K/mcL Hgb 8.2 L (11.5-15.4) g/dL Hct 29.9 L (35.3-44.9) % Plt Count 424 H (140-400) K/mcL Neutrophils # 13.1 H (1.6-8.9) K/mcL BMP 07/05/17 07:09 Sodium 141 Potassium 3.6 Chloride 95 L Carbon Dioxide 41 H* BUN 25 H Creatinine 1.02 Glucose 147 H Calcium 8.6 - ABG Interpretation ABG results: ABG ABG pH 7.28 pH Units (7.32-7.45) L 07/05/17 05:15 ABG pCO2 91 mmHg (35-45) H* 07/05/17 05:15 ABG pO2 108 mmHg (85-104) H 07/05/17 05:15 ABG O2 Saturation 97 % (95-98) 07/05/17 05:15 Consult Discharge Plan - Plan Referrals: Aleksey Huggins DO [Primary Care Provider] -
[2017-07-05] MEDS: cefTRIAXone 1,000 MG in Water for inj. (sterile) 20 ML 10 ML IVPB SCH (13:00)
[2017-07-05 13:39] LABS: Adenovirus Not Detected (Not Detect); Bordetella Pertussis Not Detected (Not Detect); Chlamydophila pneumoniae Not Detected (Not Detect); Coronavirus 229E Not Detected (Not Detect); Coronavirus HKU1 Not Detected (Not Detect); Coronavirus NL63 Not Detected (Not Detect); Coronavirus OC43 Not Detected (Not Detect); Human Metapneumovirus Not Detected (Not Detect); Human Rhinovirus/Enterovirus Not Detected (Not Detect); Influenza A Subtype 2009 H1 Not Detected (Not Detect); Influenza A Untypeable Not Detected (Not Detect); Influenza B Not Detected (Not Detect); Mycoplasma pneumoniae Not Detected (Not Detect); Parainfluenza Virus 1 Not Detected (Not Detect); Parainfluenza Virus 2 Not Detected (Not Detect); Parainfluenza Virus 3 Not Detected (Not Detect); Parainfluenza Virus 4 Not Detected (Not Detect); Respiratory Syncytial Virus Not Detected (Not Detect)
[2017-07-06] MEDS: methylPREDNISolone 125 MG/2 ML VIAL IVP SCH ×3 (00:15→16:44)
[2017-07-06] MEDS: Azithromycin 500 MG in D5% in Water 250 ML IVPB SCH (00:15)
[2017-07-06] MEDS: Nystatin POWDER 30 GM BOTTLE TP SCH ×3 (00:15→21:57)
[2017-07-06] MEDS: Ipratropium/Albuterol Neb 3 ML IH SCH ×5 (03:28→19:33)
[2017-07-06 05:28] LABS: ABG Base Excess 16 mEq/L (-2 to 3); ABG HCO3 44 mEq/L (21-27); ABG Oxygen Saturation 94 % (95-98); ABG PCO2 78 mmHg (35-45); ABG PH 7.36 pH Units (7.32-7.45); ABG PO2 79 mmHg (85-104); ABG TCO2 46 mEq/L (20-26); Blood Gas Modality BiLevel; Blood Gas PEEP 8 cm H2O
[2017-07-06] MEDS: *HR* Enoxaparin 40 MG/0.4 ML SYRINGE SQ SCH (06:04)
[2017-07-06 07:00] LABS: Hematocrit 29.6 % (35.3-44.9); Mean Corpuscular Hemoglobin 24.8 pg (28.0-33.3); Mean Corpuscular Volume 91.6 fL (83.0-100.0); Mean Platelet Volume 10.2 fL (9.4-12.4); Platelet Count 433 K/mcL (140-400); Red Blood Count 3.23 M/mcL (3.82-4.97); Red Cell Distribution Width 19.5 % (11.5-14.5)
[2017-07-06] MEDS: cefTRIAXone 1,000 MG in Water for inj. (sterile) 20 ML 10 ML IVPB SCH (08:26)
[2017-07-06] MEDS: Nicotine 14 MG PATCH.TD24 TD SCH (08:27)
[2017-07-06] MEDS: Insulin LISPRO 300 UNITS/3 ML VIAL SQ SCH ×4 (08:27→21:58)
[2017-07-06] MEDS: Diltiazem CD (24hr) 180 MG CAPSULE PO SCH (08:28)
[2017-07-06] MEDS: Aspirin 325 MG TABLET PO SCH (08:29)
[2017-07-06] MEDS: Furosemide 40 MG/4 ML VIAL IVP SCH ×2 (08:29→16:31)
[2017-07-06 08:46] LABS: Calcium 8.6 mg/dL (8.6-10.3); Potassium 3.6 mEq/L (3.5-5.1)
--- NOTE | 2017-07-06 10:18 | Internal Med Progress Note ---
<Hermann Wong - Last Filed: 07/06/17 10:14> Date of Encounter: 07/06/17 Time of Encounter: 09:50 - Assessment and plan (1) Acute and chronic respiratory failure Current Visit: Yes Status: Acute Assessment and plan: Acute on chronic hypoxic and hypercapnic respiratory failure secondary to acute COPD exacerbation triggered by possible acute bacterial bronchitis in combination of acute diastolic CHF exacerbation. Respiratory viral panal is negative. ABG is improving with pH 7.36 pCO2=78 pO2=79 1. Continue Lasix IV 60 mg twice a day 2. strict I's and daily weight 3. Continue Solu-Medrol IV and Rocephin Day 2 4. Continue BiPAP and DUOnebs Chest x-ray showed findings of congestive heart failure Qualifiers: Respiratory failure complication: hypercapnia Qualified Code(s): J96.22 - Acute and chronic respiratory failure with hypercapnia (2) Acute on chronic diastolic CHF (congestive heart failure) Current Visit: Yes Status: Acute Assessment and plan: CXR show findings of CHF. Continue lasix as stated above. (3) Morbid obesity Current Visit: No Status: Chronic (4) Tobacco abuse Current Visit: No Status: Acute Assessment and plan: Smoking cessation counseling, nicotine patch (5) Hypertension Current Visit: No Status: Chronic Qualifiers: Hypertension type: essential hypertension Qualified Code(s): I10 - Essential (primary) hypertension (6) Non-insulin dependent type 2 diabetes mellitus Current Visit: Yes Status: Chronic Assessment and plan: Continue accuchecks and start insulin sliding scale (7) HLD (hyperlipidemia) Current Visit: Yes Status: Acute Qualifiers: Hyperlipidemia type: pure hypercholesterolemia Qualified Code(s): E78.00 - Pure hypercholesterolemia, unspecified; E78.0 - Pure hypercholesterolemia - Time Spent With Patient 25 - 35 minutes - Subjective Interval history: The patient was seen and evaluated at bedside. She is alert and afebrile and appears in no acute distress. Patient states she is feeling better today. She admits cough and feeling "wheezy" but denies any shortness of breath or difficulty breathing. She is on 15L of oxygen at this time and does not feel ready to wean that down. She stated that the swelling in her lower extremitites are improving. She denies any fever, headaches, vision changes, chest pain, abdominal pain, numbness or tingling, or any weaknesses. - Constitutional Vitals: Temp Pulse Resp BP Pulse Ox 98.5 F 68 20 91/52 86 07/06/17 06:00 07/06/17 06:00 07/06/17 06:00 07/06/17 06:00 07/06/17 06:00 General appearance: Present: A&O X 3, morbidly obese, no acute distress, answers questions appropriately - Head Head exam: Present: atraumatic, normocephalic - Eye Eye exam: Present: PERRL, conjuntiva pink, sclera anicteric - ENT ENT exam: Present: mucous membranes dry - Respiratory Respiratory exam: Present: rales, wheezes. Absent: accessory muscle use, respiratory distress, rhonchi, tachypnea - Expanded Respiratory Exam Location: rales: Left, Right, Upper, Lower, wheezes: Left, Right, Upper, Lower - Cardiovascular Cardiovascular exam: Present: RRR, +S1, +S2. Absent: diastolic murmur, gallop, rubs, systolic murmur - GI/Abdominal GI/Abdominal exam: Present: normal bowel sounds, soft, no peritoneal signs. Absent: distended, tenderness - Additional comments: Leigh catheter is in place - Extremities Exam Extremities exam: Present: calf tenderness (Calf tenderness to palpation), pedal edema (+3 nonpitting edema), warm, radial pulses palpable and symmetrical. Absent: cyanotic, tenderness Additional comments: Bilateral lower extremities are very dry. - Neurological Exam Neurological exam: Present: CN II-XII intact, oriented X3, no focal deficits. Absent: pronater drift, facial droop, speech deficit - Skin Skin exam: Present: dry, intact Internal Medicine: Result - Labs CBC & Chem 7: 07/06/17 06:19 07/06/17 06:19 Labs: Short CBC 07/06/17 Range/Units 06:19 WBC 12.2 H (4.3-11.1) K/mcL Hgb 8.0 L (11.5-15.4) g/dL Hct 29.6 L (35.3-44.9) % Plt Count 433 H (140-400) K/mcL BMP 07/06/17 06:19 Sodium 139 Potassium 3.6 Chloride 93 L Carbon Dioxide 40 H* BUN 37 H Creatinine 1.22 H Glucose 210 H Calcium 8.6 - ABG Interpretation ABG results: ABG ABG pH 7.36 pH Units (7.32-7.45) 07/06/17 05:23 ABG pCO2 78 mmHg (35-45) H* 07/06/17 05:23 ABG pO2 79 mmHg (85-104) L 07/06/17 05:23 ABG O2 Saturation 94 % (95-98) L 07/06/17 05:23 Consult Discharge Plan - Plan Referrals: Aleksey Huggins DO [Primary Care Provider] - <Everton Stoll H - Last Filed: 07/06/17 13:09> Date of Encounter: 07/06/17 - Assessment and plan (1) Acute and chronic respiratory failure Current Visit: Yes Status: Acute Qualifiers: Respiratory failure complication: hypercapnia Qualified Code(s): J96.22 - Acute and chronic respiratory failure with hypercapnia (2) Acute on chronic diastolic CHF (congestive heart failure) Current Visit: Yes Status: Acute (3) HLD (hyperlipidemia) Current Visit: Yes Status: Acute Qualifiers: Hyperlipidemia type: pure hypercholesterolemia Qualified Code(s): E78.00 - Pure hypercholesterolemia, unspecified; E78.0 - Pure hypercholesterolemia (4) Non-insulin dependent type 2 diabetes mellitus Current Visit: Yes Status: Chronic (5) Tobacco abuse Current Visit: Yes Status: Chronic (6) Hypertension Current Visit: No Status: Chronic Qualifiers: Hypertension type: essential hypertension Qualified Code(s): I10 - Essential (primary) hypertension (7) Morbid obesity Current Visit: No Status: Chronic (8) TYE (obstructive sleep apnea) Current Visit: No Status: Chronic (9) Diabetes mellitus Current Visit: No Status: Chronic Qualifiers: Diabetes mellitus type: type 2 Diabetes mellitus complication status: with hyperglycemia Diabetes mellitus assisted insulin use: without assisted use Qualified Code(s): E11.65 - Type 2 diabetes mellitus with hyperglycemia - Constitutional Vitals: Temp Pulse Resp BP Pulse Ox 98.4 F 84 18 89/57 94 07/06/17 11:04 07/06/17 11:04 07/06/17 11:38 07/06/17 11:04 07/06/17 11:38 Internal Medicine: Result - Labs CBC & Chem 7: 07/06/17 06:19 07/06/17 06:19 Labs: Short CBC 07/06/17 Range/Units 06:19 WBC 12.2 H (4.3-11.1) K/mcL Hgb 8.0 L (11.5-15.4) g/dL Hct 29.6 L (35.3-44.9) % Plt Count 433 H (140-400) K/mcL BMP 07/06/17 06:19 Sodium 139 Potassium 3.6 Chloride 93 L Carbon Dioxide 40 H* BUN 37 H Creatinine 1.22 H Glucose 210 H Calcium 8.6 - ABG Interpretation ABG results: ABG ABG pH 7.36 pH Units (7.32-7.45) 07/06/17 05:23 ABG pCO2 78 mmHg (35-45) H* 07/06/17 05:23 ABG pO2 79 mmHg (85-104) L 07/06/17 05:23 ABG O2 Saturation 94 % (95-98) L 07/06/17 05:23 - Attending Attestation Still requiring high amount of oxygen. Hypertension, consider CT scan of the chest if pneumonia is suspected I examined this patient and my medical decision-making was reviewed with the Resident Physician. I agree with the documented findings, disposition and treatment plan as described except to the extent set forth below.
[2017-07-07] MEDS: Azithromycin 500 MG in D5% in Water 250 ML IVPB SCH ×2 (00:06→23:58)
[2017-07-07] MEDS: Melatonin 3 MG TABLET PO PRN ×2 (00:07→23:59)
[2017-07-07] MEDS: methylPREDNISolone 125 MG/2 ML VIAL IVP SCH ×3 (01:35→21:51)
[2017-07-07] MEDS: Ipratropium/Albuterol Neb 3 ML IH SCH ×7 (03:16→23:14)
[2017-07-07 05:28] LABS: Basophils % 0.1 %
[2017-07-07 05:29] LABS: Hematocrit 28.1 % (35.3-44.9); Hemoglobin 7.8 g/dL (11.5-15.4); Immature Granulocytes % 1.2 % (0-4); Lymphocytes # 0.5 K/mcL (0.6-4.6); Lymphocytes % 4.6 %; Mean Corpuscular HGB Conc 27.8 g/dL (31.6-35.5); Mean Corpuscular Hemoglobin 25.4 pg (28.0-33.3); Mean Corpuscular Volume 91.5 fL (83.0-100.0); Mean Platelet Volume 9.9 fL (9.4-12.4); Monocytes # 0.5 K/mcL (0.0-1.3); Monocytes % 4.6 %; Neutrophils # 10.2 K/mcL (1.6-8.9); Nucleated Red Blood Cells 0.6 /100 WBC (0); Platelet Count 380 K/mcL (140-400); Red Blood Count 3.07 M/mcL (3.82-4.97); Red Cell Distribution Width 19.1 % (11.5-14.5); Segmented Neutrophils % 89.5 %
[2017-07-07 05:41] LABS: BUN/Creatinine Ratio 39 (6-26); Blood Urea Nitrogen 43 mg/dL (6-20); Calcium 8.1 mg/dL (8.6-10.3); Carbon Dioxide 39 mEq/L (23-29); Chloride 94 mEq/L (98-107); Glucose 260 mg/dL (70-105); Osmolality,Calculated 310 (280-300); Potassium 3.6 mEq/L (3.5-5.1); Sodium 140 mEq/L (136-145); eGFR For African Americans > 60 (> 60); eGFR For Non-African Americans 52 (> 60)
[2017-07-07 06:03] LABS: Hypochromasia Present (Not Present); Platelet Estimate Normal (Normal); Polychromasia 1+ (Not Present)
[2017-07-07 06:04] LABS: Anisocytosis 1+ (Not Present)
[2017-07-07 06:06] LABS: Poikilocytosis 1+ (Not Present)
[2017-07-07] MEDS: *HR* Enoxaparin 40 MG/0.4 ML SYRINGE SQ SCH (06:15)
[2017-07-07] MEDS: Insulin LISPRO 300 UNITS/3 ML VIAL SQ SCH ×4 (07:59→21:51)
[2017-07-07] MEDS: Furosemide 40 MG/4 ML VIAL IVP SCH ×3 (08:00→17:11)
[2017-07-07] MEDS: Nystatin POWDER 30 GM BOTTLE TP SCH ×2 (08:01→21:52)
[2017-07-07] MEDS: Diltiazem CD (24hr) 180 MG CAPSULE PO SCH ×2 (08:04→14:33)
[2017-07-07] MEDS: cefTRIAXone 1,000 MG in Water for inj. (sterile) 20 ML 10 ML IVPB SCH (09:15)
[2017-07-07] MEDS: Aspirin 325 MG TABLET PO SCH (09:15)
[2017-07-07] MEDS: Nicotine 14 MG PATCH.TD24 TD SCH (09:15)
--- NOTE | 2017-07-07 10:09 | Electrocardiograph Report ---
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
--- NOTE | 2017-07-07 11:26 | Internal Med Progress Note ---
<Hermann Wong - Last Filed: 07/07/17 11:24> Date of Encounter: 07/07/17 Time of Encounter: 09:00 - Assessment and plan (1) Acute and chronic respiratory failure Current Visit: Yes Status: Acute Assessment and plan: Acute on chronic hypoxic and hypercapnic respiratory failure secondary to acute COPD exacerbation triggered by possible acute bacterial bronchitis in combination of acute diastolic CHF exacerbation. Respiratory viral panal is negative. ABG is improving with pH 7.36 pCO2=78 pO2=79 1. Continue Lasix IV 60 mg twice a day 2. strict I's and daily weight 3. Continue Solu-Medrol IV and Rocephin Day 3. Azithromycin Day 3 4. Continue BiPAP and DUOnebs Chest x-ray showed findings of congestive heart failure Qualifiers: Respiratory failure complication: hypercapnia Qualified Code(s): J96.22 - Acute and chronic respiratory failure with hypercapnia (2) Acute on chronic diastolic CHF (congestive heart failure) Current Visit: Yes Status: Acute Assessment and plan: CXR show findings of CHF. Continue lasix as stated above. (3) Morbid obesity Current Visit: No Status: Chronic (4) Tobacco abuse Current Visit: No Status: Acute Assessment and plan: Smoking cessation counseling, nicotine patch. (5) Hypertension Current Visit: No Status: Chronic Qualifiers: Hypertension type: essential hypertension Qualified Code(s): I10 - Essential (primary) hypertension (6) Non-insulin dependent type 2 diabetes mellitus Current Visit: Yes Status: Chronic Assessment and plan: Continue accuchecks and start insulin sliding scale (7) HLD (hyperlipidemia) Current Visit: Yes Status: Acute Qualifiers: Hyperlipidemia type: pure hypercholesterolemia Qualified Code(s): E78.00 - Pure hypercholesterolemia, unspecified; E78.0 - Pure hypercholesterolemia - Subjective Interval history: The patient was seen and evaluated at bedside. Patient was eating breakfast. She is alert and afebrile and appears in no acute distress. Patient states she is feeling better today. She admits cough and feeling "wheezy" but denies any shortness of breath or difficulty breathing. She is on 12L of oxygen [place] at this time. She stated that the swelling in her lower extremitites are improving. She denies any fever, headaches, vision changes, chest pain, abdominal pain, numbness or tingling, or any weaknesses. - Constitutional Vitals: Temp Pulse Resp BP Pulse Ox 98.5 F 83 19 96/66 97 07/07/17 06:38 07/07/17 06:38 07/07/17 06:38 07/07/17 06:38 07/07/17 06:38 General appearance: Present: A&O X 3, morbidly obese, no acute distress, answers questions appropriately - Eye Eye exam: Present: PERRL, conjuntiva pink, sclera anicteric Pupils: Present: PERRL - ENT ENT exam: Present: mucous membranes dry - Neck Neck exam general surgery: Present: supple, trachea midline. Absent: lymphadenopathy - Respiratory Respiratory exam: Present: rales, wheezes. Absent: accessory muscle use, rhonchi - Expanded Respiratory Exam Location: rales: Left, Right, Upper, Lower, wheezes: Left, Right, Upper, Lower - Cardiovascular Cardiovascular exam: Present: +S1, +S2, tachycardia. Absent: gallop, rubs, systolic murmur - GI/Abdominal GI/Abdominal exam: Present: normal bowel sounds, soft, no peritoneal signs. Absent: distended, tenderness - Additional comments: Leigh catheters in place. Urine is yellow with no blood - Extremities Exam Extremities exam: Present: pedal edema (+3 pitting edema), warm, radial pulses palpable and symmetrical. Absent: calf tenderness, cyanotic - Neurological Exam Neurological exam: Present: CN II-XII intact, oriented X3, no focal deficits. Absent: pronater drift, facial droop, speech deficit - Skin Skin exam: Present: dry, intact Internal Medicine: Result - Labs CBC & Chem 7: 07/07/17 04:22 07/07/17 04:22 Labs: Short CBC 07/07/17 Range/Units 04:22 WBC 11.4 H (4.3-11.1) K/mcL Hgb 7.8 L (11.5-15.4) g/dL Hct 28.1 L (35.3-44.9) % Plt Count 380 (140-400) K/mcL Neutrophils # 10.2 H (1.6-8.9) K/mcL BMP 07/07/17 04:22 Sodium 140 Potassium 3.6 Chloride 94 L Carbon Dioxide 39 H BUN 43 H Creatinine 1.10 Glucose 260 H Calcium 8.1 L - ABG Interpretation ABG results: ABG ABG pH 7.36 pH Units (7.32-7.45) 07/06/17 05:23 ABG pCO2 78 mmHg (35-45) H* 07/06/17 05:23 ABG pO2 79 mmHg (85-104) L 07/06/17 05:23 ABG O2 Saturation 94 % (95-98) L 07/06/17 05:23 Consult Discharge Plan - Plan Instructions: Heart Failure (DC) Referrals: Aleksey Huggins DO [Primary Care Provider] - <Everton Stoll H - Last Filed: 07/07/17 13:43> Date of Encounter: 07/07/17 - Assessment and plan (1) Acute and chronic respiratory failure Current Visit: Yes Status: Acute Qualifiers: Respiratory failure complication: hypercapnia Qualified Code(s): J96.22 - Acute and chronic respiratory failure with hypercapnia (2) Acute on chronic diastolic CHF (congestive heart failure) Current Visit: Yes Status: Acute (3) HLD (hyperlipidemia) Current Visit: Yes Status: Acute Qualifiers: Hyperlipidemia type: pure hypercholesterolemia Qualified Code(s): E78.00 - Pure hypercholesterolemia, unspecified; E78.0 - Pure hypercholesterolemia (4) Non-insulin dependent type 2 diabetes mellitus Current Visit: Yes Status: Chronic (5) Tobacco abuse Current Visit: Yes Status: Chronic (6) Hypertension Current Visit: No Status: Chronic Qualifiers: Hypertension type: essential hypertension Qualified Code(s): I10 - Essential (primary) hypertension (7) Morbid obesity Current Visit: No Status: Chronic (8) TYE (obstructive sleep apnea) Current Visit: No Status: Chronic (9) Diabetes mellitus Current Visit: No Status: Chronic Qualifiers: Diabetes mellitus type: type 2 Diabetes mellitus complication status: with hyperglycemia Diabetes mellitus residential insulin use: without residential use Qualified Code(s): E11.65 - Type 2 diabetes mellitus with hyperglycemia - Constitutional Vitals: Temp Pulse Resp BP Pulse Ox 98.5 F 102 23 111/82 100 07/07/17 11:48 07/07/17 11:48 07/07/17 11:48 07/07/17 11:48 07/07/17 11:48 Internal Medicine: Result - Labs CBC & Chem 7: 07/07/17 04:22 07/07/17 04:22 Labs: Short CBC 07/07/17 Range/Units 04:22 WBC 11.4 H (4.3-11.1) K/mcL Hgb 7.8 L (11.5-15.4) g/dL Hct 28.1 L (35.3-44.9) % Plt Count 380 (140-400) K/mcL Neutrophils # 10.2 H (1.6-8.9) K/mcL BMP 07/07/17 04:22 Sodium 140 Potassium 3.6 Chloride 94 L Carbon Dioxide 39 H BUN 43 H Creatinine 1.10 Glucose 260 H Calcium 8.1 L - ABG Interpretation ABG results: ABG ABG pH 7.36 pH Units (7.32-7.45) 07/06/17 05:23 ABG pCO2 78 mmHg (35-45) H* 07/06/17 05:23 ABG pO2 79 mmHg (85-104) L 07/06/17 05:23 ABG O2 Saturation 94 % (95-98) L 07/06/17 05:23 - Attending Attestation decrease solumedrol down to 40 mg BID BIPAP qualification ordered ECF recommended by PT change lasix to 40 mg IV TID I examined this patient and my medical decision-making was reviewed with the Resident Physician. I agree with the documented findings, disposition and treatment plan as described except to the extent set forth below.
[2017-07-08] MEDS: Ipratropium/Albuterol Neb 3 ML IH SCH ×6 (03:15→23:07)
[2017-07-08] MEDS: *HR* Enoxaparin 40 MG/0.4 ML SYRINGE SQ SCH (05:09)
[2017-07-08 05:32] LABS: Basophils % 0.1 %
[2017-07-08 05:34] LABS: Hematocrit 29.4 % (35.3-44.9); Hemoglobin 7.9 g/dL (11.5-15.4); Immature Granulocytes % 1.4 % (0-4); Lymphocytes # 0.5 K/mcL (0.6-4.6); Lymphocytes % 4.8 %; Mean Corpuscular HGB Conc 26.9 g/dL (31.6-35.5); Mean Corpuscular Hemoglobin 24.7 pg (28.0-33.3); Mean Corpuscular Volume 91.9 fL (83.0-100.0); Mean Platelet Volume 10.1 fL (9.4-12.4); Monocytes # 0.5 K/mcL (0.0-1.3); Monocytes % 5.1 %; Neutrophils # 9.2 K/mcL (1.6-8.9); Nucleated Red Blood Cells 1.3 /100 WBC (0); Platelet Count 366 K/mcL (140-400); Red Cell Distribution Width 18.7 % (11.5-14.5); Segmented Neutrophils % 88.6 %
[2017-07-08 05:52] LABS: BUN/Creatinine Ratio 53 (6-26); Blood Urea Nitrogen 37 mg/dL (6-20); Calcium 8.2 mg/dL (8.6-10.3); Carbon Dioxide 40 mEq/L (23-29); Chloride 94 mEq/L (98-107); Glucose 252 mg/dL (70-105); Osmolality,Calculated 303 (280-300); Potassium 3.8 mEq/L (3.5-5.1); Sodium 138 mEq/L (136-145); eGFR For African Americans > 60 (> 60); eGFR For Non-African Americans > 60 (> 60)
[2017-07-08 06:15] LABS: Anisocytosis 2+ (Not Present); Hypochromasia Present (Not Present); Macrocytosis Present (Not Present); Microcytosis Present (Not Present); Polychromasia 1+ (Not Present)
[2017-07-08 06:16] LABS: Stomatocytes 1+ (Not Present)
[2017-07-08 06:17] LABS: Large Platelets Present (Not Present); Platelet Estimate Normal (Normal)
[2017-07-08] MEDS: Acetaminophen 325 MG TABLET PO PRN (08:26)
[2017-07-08] MEDS: methylPREDNISolone 125 MG/2 ML VIAL IVP SCH ×2 (08:27→22:49)
[2017-07-08] MEDS: Diltiazem CD (24hr) 180 MG CAPSULE PO SCH (08:27)
[2017-07-08] MEDS: Furosemide 40 MG/4 ML VIAL IVP SCH ×3 (08:28→16:35)
[2017-07-08] MEDS: Nystatin POWDER 30 GM BOTTLE TP SCH ×2 (08:29→22:49)
[2017-07-08] MEDS: Aspirin 325 MG TABLET PO SCH (08:29)
[2017-07-08] MEDS: cefTRIAXone 1,000 MG in Water for inj. (sterile) 20 ML 10 ML IVPB SCH (08:29)
[2017-07-08] MEDS: Nicotine 14 MG PATCH.TD24 TD SCH (08:33)
[2017-07-08] MEDS: Insulin LISPRO 300 UNITS/3 ML VIAL SQ SCH ×4 (08:35→22:48)
--- NOTE | 2017-07-08 11:50 | Internal Med Progress Note ---
Date of Encounter: 07/08/17 Time of Encounter: 11:47 - Assessment and plan (1) Acute and chronic respiratory failure Current Visit: Yes Status: Acute Assessment and plan: Acute on chronic hypoxic and hypercapnic respiratory failure secondary to acute COPD exacerbation triggered by possible acute bacterial bronchitis in combination of acute diastolic CHF exacerbation. Respiratory viral panel was negative. ABG is improving with pH 7.36 pCO2=78 pO2=79 1. Continue Lasix IV 40 mg TID 2. strict I's and daily weight 3. Continue Solu-Medrol IV and Rocephin Day 4. COmpleted doses of Azithromycin 4. Continue BiPAP and DUOnebs Chest x-ray showed findings of congestive heart failure Qualifiers: Respiratory failure complication: hypercapnia Qualified Code(s): J96.22 - Acute and chronic respiratory failure with hypercapnia (2) Acute on chronic diastolic CHF (congestive heart failure) Current Visit: Yes Status: Acute Assessment and plan: CXR show findings of CHF. Continue lasix as stated above. (3) HLD (hyperlipidemia) Current Visit: Yes Status: Acute Qualifiers: Hyperlipidemia type: pure hypercholesterolemia Qualified Code(s): E78.00 - Pure hypercholesterolemia, unspecified; E78.0 - Pure hypercholesterolemia (4) Non-insulin dependent type 2 diabetes mellitus Current Visit: Yes Status: Chronic Assessment and plan: Continue accuchecks and start insulin sliding scale (5) Tobacco abuse Current Visit: Yes Status: Chronic Assessment and plan: Smoking cessation counseling, nicotine patch (6) Hypertension Current Visit: No Status: Chronic Qualifiers: Hypertension type: essential hypertension Qualified Code(s): I10 - Essential (primary) hypertension (7) Morbid obesity Current Visit: No Status: Chronic (8) TYE (obstructive sleep apnea) Current Visit: No Status: Chronic - Subjective Interval history: Feeling less short of breath, bringing up less yellowish phlegm, not complaining of chills anymore, fevers recorded, no abdominal pain, no diarrhea or dysuria. No chest pain - Constitutional Vitals: Temp Pulse Resp BP Pulse Ox 97.6 F 97 23 114/82 99 07/08/17 11:00 07/08/17 11:00 07/08/17 11:00 07/08/17 11:00 07/08/17 11:00 General appearance: Present: A&O X 3, morbidly obese, no acute distress, answers questions appropriately Exam: - Head Head exam: Present: atraumatic, normocephalic - Eye Eye exam: Present: PERRL, conjuntiva pink, sclera anicteric Pupils: Present: PERRL - Neck Neck exam general surgery: Present: supple, trachea midline. Absent: lymphadenopathy - Respiratory Respiratory exam: Present: CTAB, rales, wheezes (Diffuse crackles or wheezing). Absent: accessory muscle use, rhonchi - Cardiovascular Cardiovascular exam: Present: RRR, +S1, +S2. Absent: diastolic murmur, gallop, rubs, systolic murmur - GI/Abdominal GI/Abdominal exam: Present: normal bowel sounds, soft, no peritoneal signs. Absent: distended, tenderness - Extremities Exam Extremities exam: Present: pedal edema (+3 nonpitting edema), warm, radial pulses palpable and symmetrical. Absent: calf tenderness, cyanotic - Neurological Exam Neurological exam: Present: CN II-XII intact, oriented X3, no focal deficits. Absent: pronater drift, facial droop, speech deficit Additional comments: Leigh catheter in place Internal Medicine: Result - Labs CBC & Chem 7: 07/08/17 05:02 07/08/17 05:02 Labs: Short CBC 07/08/17 Range/Units 05:02 WBC 10.4 (4.3-11.1) K/mcL Hgb 7.9 L (11.5-15.4) g/dL Hct 29.4 L (35.3-44.9) % Plt Count 366 (140-400) K/mcL Neutrophils # 9.2 H (1.6-8.9) K/mcL BMP 07/08/17 05:02 Sodium 138 Potassium 3.8 Chloride 94 L Carbon Dioxide 40 H* BUN 37 H Creatinine 0.70 Glucose 252 H Calcium 8.2 L - ABG Interpretation ABG results: ABG ABG pH 7.36 pH Units (7.32-7.45) 07/06/17 05:23 ABG pCO2 78 mmHg (35-45) H* 07/06/17 05:23 ABG pO2 79 mmHg (85-104) L 07/06/17 05:23 ABG O2 Saturation 94 % (95-98) L 07/06/17 05:23 Consult Discharge Plan - Plan Instructions: Heart Failure (DC) Referrals: Aleksey Huggins DO [Primary Care Provider] -
[2017-07-08] MEDS: Melatonin 3 MG TABLET PO PRN (22:48)
[2017-07-09] MEDS: Ipratropium/Albuterol Neb 3 ML IH SCH ×6 (03:28→23:58)
[2017-07-09] MEDS: *HR* Enoxaparin 40 MG/0.4 ML SYRINGE SQ SCH (05:08)
[2017-07-09 08:25] LABS: BUN/Creatinine Ratio 45 (6-26); Blood Urea Nitrogen 35 mg/dL (6-20); Calcium 8.5 mg/dL (8.6-10.3); Carbon Dioxide 41 mEq/L (23-29); Chloride 93 mEq/L (98-107); Glucose 211 mg/dL (70-105); Osmolality,Calculated 304 (280-300); Potassium 4.1 mEq/L (3.5-5.1); Sodium 140 mEq/L (136-145); eGFR For African Americans > 60 (> 60); eGFR For Non-African Americans > 60 (> 60)
[2017-07-09] MEDS: Aspirin 325 MG TABLET PO SCH (08:26)
[2017-07-09] MEDS: cefTRIAXone 1,000 MG in Water for inj. (sterile) 20 ML 10 ML IVPB SCH (08:26)
[2017-07-09] MEDS: Diltiazem CD (24hr) 180 MG CAPSULE PO SCH (08:26)
[2017-07-09] MEDS: Furosemide 40 MG/4 ML VIAL IVP SCH ×3 (08:26→16:54)
[2017-07-09] MEDS: methylPREDNISolone 125 MG/2 ML VIAL IVP SCH (08:26)
[2017-07-09] MEDS: Nystatin POWDER 30 GM BOTTLE TP SCH ×2 (08:27→21:31)
[2017-07-09] MEDS: Insulin LISPRO 300 UNITS/3 ML VIAL SQ SCH ×4 (08:27→21:32)
[2017-07-09] MEDS: Nicotine 14 MG PATCH.TD24 TD SCH (08:27)
--- NOTE | 2017-07-09 10:27 | Internal Med Progress Note ---
Date of Encounter: 07/09/17 Time of Encounter: 10:26 - Assessment and plan (1) Acute and chronic respiratory failure Current Visit: Yes Status: Acute Assessment and plan: Acute on chronic hypoxic and hypercapnic respiratory failure secondary to acute COPD exacerbation triggered by possible acute bacterial bronchitis in combination of acute diastolic CHF exacerbation. Respiratory viral panel was negative. ABG is improving with pH 7.36 pCO2=78 pO2=79 1. Continue Lasix IV 40 mg TID 2. strict I's and daily weight 3. Continue Solu-Medrol IV and Rocephin Day 5. COmpleted doses of Azithromycin 4. Continue BiPAP and DUOnebs Chest x-ray showed findings of congestive heart failure Qualifiers: Respiratory failure complication: hypercapnia Qualified Code(s): J96.22 - Acute and chronic respiratory failure with hypercapnia (2) Acute on chronic diastolic CHF (congestive heart failure) Current Visit: Yes Status: Acute Assessment and plan: CXR show findings of CHF. Continue lasix as stated above. (3) HLD (hyperlipidemia) Current Visit: Yes Status: Acute Qualifiers: Hyperlipidemia type: pure hypercholesterolemia Qualified Code(s): E78.00 - Pure hypercholesterolemia, unspecified; E78.0 - Pure hypercholesterolemia (4) Non-insulin dependent type 2 diabetes mellitus Current Visit: Yes Status: Chronic Assessment and plan: Continue accuchecks and start insulin sliding scale (5) Tobacco abuse Current Visit: Yes Status: Chronic Assessment and plan: Smoking cessation counseling, nicotine patch (6) Hypertension Current Visit: No Status: Chronic Qualifiers: Hypertension type: essential hypertension Qualified Code(s): I10 - Essential (primary) hypertension (7) Morbid obesity Current Visit: No Status: Chronic (8) TYE (obstructive sleep apnea) Current Visit: No Status: Chronic - Subjective Interval history: Feeling better and less short of breath, coughing less and bringing up less yellowish phlegm, not complaining of chills anymore, fevers recorded, no abdominal pain, no diarrhea or dysuria. No chest pain - Constitutional Vitals: Temp Pulse Resp BP Pulse Ox 97.9 F 85 16 109/77 97 07/09/17 07:29 07/09/17 07:29 07/09/17 07:29 07/09/17 07:29 07/09/17 07:29 General appearance: Present: A&O X 3, morbidly obese, no acute distress, answers questions appropriately Exam: - Head Head exam: Present: atraumatic, normocephalic - Eye Eye exam: Present: PERRL, conjuntiva pink, sclera anicteric Pupils: Present: PERRL - Neck Neck exam general surgery: Present: supple, trachea midline. Absent: lymphadenopathy - Respiratory Respiratory exam: Present: CTAB, rales, wheezes (Diffuse crackles or wheezing). Absent: accessory muscle use, rhonchi - Cardiovascular Cardiovascular exam: Present: RRR, +S1, +S2. Absent: diastolic murmur, gallop, rubs, systolic murmur - GI/Abdominal GI/Abdominal exam: Present: normal bowel sounds, soft, no peritoneal signs. Absent: distended, tenderness - Extremities Exam Extremities exam: Present: pedal edema (+3 nonpitting edema), warm, radial pulses palpable and symmetrical. Absent: calf tenderness, cyanotic - Neurological Exam Neurological exam: Present: CN II-XII intact, oriented X3, no focal deficits. Absent: pronater drift, facial droop, speech deficit Additional comments: Leigh catheter in place Internal Medicine: Result - Labs CBC & Chem 7: 07/08/17 05:02 07/09/17 06:45 Labs: BMP 07/09/17 06:45 Sodium 140 Potassium 4.1 Chloride 93 L Carbon Dioxide 41 H* BUN 35 H Creatinine 0.77 Glucose 211 H Calcium 8.5 L - ABG Interpretation ABG results: ABG ABG pH 7.36 pH Units (7.32-7.45) 07/06/17 05:23 ABG pCO2 78 mmHg (35-45) H* 07/06/17 05:23 ABG pO2 79 mmHg (85-104) L 07/06/17 05:23 ABG O2 Saturation 94 % (95-98) L 07/06/17 05:23 Consult Discharge Plan - Plan Instructions: Heart Failure (DC) Referrals: Aleksey Huggins DO [Primary Care Provider] -
[2017-07-09] MEDS: Melatonin 3 MG TABLET PO PRN (23:23)
[2017-07-10] MEDS: Acetaminophen 325 MG TABLET PO PRN (02:54)
[2017-07-10] MEDS: Ipratropium/Albuterol Neb 3 ML IH SCH ×6 (03:33→23:31)
[2017-07-10] MEDS: *HR* Enoxaparin 40 MG/0.4 ML SYRINGE SQ SCH (05:26)
[2017-07-10] MEDS: Aspirin 325 MG TABLET PO SCH (08:25)
[2017-07-10] MEDS: Diltiazem CD (24hr) 180 MG CAPSULE PO SCH (08:25)
[2017-07-10] MEDS: Furosemide 40 MG/4 ML VIAL IVP SCH ×4 (08:26→21:14)
[2017-07-10] MEDS: cefTRIAXone 1,000 MG in Water for inj. (sterile) 20 ML 10 ML IVPB SCH (08:26)
[2017-07-10] MEDS: Nicotine 14 MG PATCH.TD24 TD SCH (08:28)
[2017-07-10] MEDS: Insulin LISPRO 300 UNITS/3 ML VIAL SQ SCH ×3 (08:28→20:11)
[2017-07-10] MEDS: Nystatin POWDER 30 GM BOTTLE TP SCH ×2 (08:29→21:18)
[2017-07-10] MEDS ORDERED: MethylPREDNISolone 40 MG/ML VIAL IVP SCH (09:00)
--- NOTE | 2017-07-10 09:32 | Discharge Summary ---
Orders not resulted at time of discharge: Pending orders 07/06/17 04:00 ABG [Arterial Blood Gas] AM 0400 Date of Encounter: 07/10/17 Time of Encounter: 09:28 - Discharge Diagnosis (1) Acute and chronic respiratory failure Priority: Primary Status: Acute Comments: Acute on chronic hypoxic and hypercapnic respiratory failure secondary to acute COPD exacerbation triggered by possible acute bacterial bronchitis in combination of acute diastolic CHF exacerbation. Qualifiers: Respiratory failure complication: hypercapnia Qualified Code(s): J96.22 - Acute and chronic respiratory failure with hypercapnia (2) Acute on chronic diastolic CHF (congestive heart failure) Priority: Primary Status: Acute (3) HLD (hyperlipidemia) Priority: Primary Status: Acute Qualifiers: Hyperlipidemia type: pure hypercholesterolemia Qualified Code(s): E78.00 - Pure hypercholesterolemia, unspecified; E78.0 - Pure hypercholesterolemia (4) Non-insulin dependent type 2 diabetes mellitus Priority: Primary Status: Chronic (5) Tobacco abuse Priority: Primary Status: Chronic (6) Hypertension Priority: Primary Status: Chronic Qualifiers: Hypertension type: essential hypertension Qualified Code(s): I10 - Essential (primary) hypertension (7) Morbid obesity Priority: Primary Status: Chronic (8) TYE (obstructive sleep apnea) Priority: Primary Status: Chronic Hospital course: Ms. Kyle is a 56 year old female slick a PMHx of chronic respiratory failure/ COPD on 4L home O2 and CPAP, dCHF, a fib, DM not insulin-dependent, GERD, HLD, HTN, Moderate MR and TR, Severe Pulmonary HTN who was brought in by EMS for SOB. She was found with a pulse ox in the 70s in the field. She was placed on BiPAP. Patient was transitioned to ED biPAPA and was sating in the low 90s. Patient wassomnolent at time but arousable and able to communicate answer questions appropriately. Lab work in the ED was significant for bicarb 37, LA 3.7 repeat 1.1, negative troponin, BNP 863, and VBG of pH 7.22/pco2 104/po2 144/ hco3 43, repeat 7.17/119/100/43. CXR showed: "Vascular engorgement and cephalization is demonstrated with bilateral peribronchial cuffing and perivascular haziness. Bibasilar consolidation and bilateral pleural effusion. " Patient received Duonebs, 40mg IV lasix, and 125mg Solumedrol in the ED. The patient was continued on Solu-Medrol, Rocephin and her Lasix was switched to 40 mg 3 times a day as a patient was developing episodes of hypotension in the morning and her Cardizem and Lopressor were held because of that reason. He is a stable to be discharged of the moment. Continue prednisone taper, 2 more days of cefdinir. Continue Lasix - Time Spent with Patient Total time spent providing and/or coordinating discharge services: Greater than 30 minutes (40 min) - Discharge Medications Prescriptions: Cefdinir [Omnicef] 300 mg PO BID #4 capsule predniSONE [PredniSONE] 10 mg PO DAILY 16 Days tablet Home Medications: Albuterol Sulfate [Proair Hfa] 2 puff IH Q4H PRN 09/08/15 [History] Simvastatin [Zocor] 40 mg PO HS 09/08/15 [History] Aspirin 325 mg PO DAILY #60 tablet 09/19/15 [Rx] Diltiazem CD (24hr) [Cardizem CD] 360 mg PO DAILY #30 cap.er.24h 09/19/15 [Rx] Metoprolol [Lopressor] 50 mg PO BID #60 tablet 09/19/15 [Rx] Ipratropium/Albuterol Neb [Duoneb] 3 ml IH [id number] PRN inh 12/08/16 [Rx] Fluticasone/Vilanterol [Breo Ellipta 100-25 Mcg INH] 1 puff IH DAILY 04/22/17 [ History] Albuterol Neb [Proventil Neb] 2.5 mg IH [id number] inhsol 04/26/17 [Rx] Melatonin 3 mg PO HS PRN tablet 04/26/17 [Rx] Nicotine Patch [Nicoderm] 14 mg TD Q24H patch.td24 04/26/17 [Rx] Oxygen 5 l NS AD 07/04/17 [History] Cefdinir [Omnicef] 300 mg PO BID #4 capsule 07/10/17 [Rx] Furosemide [Lasix] 40 mg PO TID #45 tablet 07/10/17 [Rx] predniSONE [PredniSONE] 10 mg PO DAILY 16 Days tablet 07/10/17 [Rx] Allergies/Adverse Reactions: 3 Allergy/AdvReac Type Severity Reaction Status Date / Time Penicillins Allergy Rash Verified 03/21/17 21:50 Date of admission: 07/05/17 05:18 Primary care physician: Aleksey Huggins DO Consults: 07/06/17 07:27 Consult to Volumetric Weigher [CONS] Routine Reason for SW Consult: needs BSC on discharge. 07/06/17 15:16 Consult to Occupational Therapy [CONS] Routine Comment: Evaluate, develop and implement POC Reason for Consult: Patient wants rehab at discharge Consult to Physical Therapy [CONS] Routine Comment: Evaluate, develop and implement POC Reason for Consult: Patient wants rehab at discharge 07/07/17 13:39 Consult to Respiratory Therapy [CONS] Routine Reason for Consult: bipap qualification Call Completed: No - Constitutional Vitals: Temp Pulse Resp BP Pulse Ox 98.1 F 82 26 114/59 91 07/10/17 07:24 07/10/17 07:24 07/10/17 07:34 07/10/17 07:34 07/10/17 07:34 General appearance: Present: A&O X 3, morbidly obese, no acute distress, answers questions appropriately Exam: General appearance: Present: A&O X 3, morbidly obese, no acute distress, answers questions appropriately Exam: - Head Head exam: Present: atraumatic, normocephalic - Eye Eye exam: Present: PERRL, conjuntiva pink, sclera anicteric Pupils: Present: PERRL - Neck Neck exam general surgery: Present: supple, trachea midline. Absent: lymphadenopathy - Respiratory Respiratory exam: Present: CTAB, rales, wheezes (Diffuse crackles or wheezing). Absent: accessory muscle use, rhonchi - Cardiovascular Cardiovascular exam: Present: RRR, +S1, +S2. Absent: diastolic murmur, gallop, rubs, systolic murmur - GI/Abdominal GI/Abdominal exam: Present: normal bowel sounds, soft, no peritoneal signs. Absent: distended, tenderness - Extremities Exam Extremities exam: Present: pedal edema (+3 nonpitting edema), warm, radial pulses palpable and symmetrical. Absent: calf tenderness, cyanotic - Neurological Exam Neurological exam: Present: CN II-XII intact, oriented X3, no focal deficits. Absent: pronater drift, facial droop, speech deficit Additional comments: Leigh catheter in place - Patient Status Disposition: Transfer SNF Condition: Good Overall status at discharge: patient is progressing back to baseline - Discharge Instructions Instructions: Heart Failure (DC) Follow Up With: Aleksey Huggins DO [Primary Care Provider] - Additional Instructions: Decrease fluid intake. Continue with Lasix 40 mg 3 times a day. Prednisone taper as follows: 40 mg daily for 4 days, 30 mg for 4 days, 20 mg for 4 days and 10 mg for 4 days. Complete 2 more days of cefdinir - Diet and Activity Activity: increase activity as tolerated Diet: low fat, low cholesterol
--- NOTE | 2017-07-10 09:40 | Physician Discharge Referral ---
ExtendedCare Referral Info Provider in Charge after Transfer: PCP Institutional Level of Care: Skilled - Diagnosis (1) Acute and chronic respiratory failure Status: Acute (2) Acute on chronic diastolic CHF (congestive heart failure) Status: Acute (3) HLD (hyperlipidemia) Status: Acute (4) Non-insulin dependent type 2 diabetes mellitus Status: Chronic (5) Tobacco abuse Status: Chronic (6) Hypertension Status: Chronic (7) Morbid obesity Status: Chronic (8) TYE (obstructive sleep apnea) Status: Chronic - Transfer Medications Prescriptions: Cefdinir [Omnicef] 300 mg PO BID #4 capsule predniSONE [PredniSONE] 10 mg PO DAILY 16 Days tablet Home Medications: Albuterol Sulfate [Proair Hfa] 2 puff IH Q4H PRN 09/08/15 [History] Simvastatin [Zocor] 40 mg PO HS 09/08/15 [History] Aspirin 325 mg PO DAILY #60 tablet 09/19/15 [Rx] Diltiazem CD (24hr) [Cardizem CD] 360 mg PO DAILY #30 cap.er.24h 09/19/15 [Rx] Metoprolol [Lopressor] 50 mg PO BID #60 tablet 09/19/15 [Rx] Ipratropium/Albuterol Neb [Duoneb] 3 ml IH [id number] PRN inh 12/08/16 [Rx] Fluticasone/Vilanterol [Breo Ellipta 100-25 Mcg INH] 1 puff IH DAILY 04/22/17 [ History] Albuterol Neb [Proventil Neb] 2.5 mg IH [id number] inhsol 04/26/17 [Rx] Melatonin 3 mg PO HS PRN tablet 04/26/17 [Rx] Nicotine Patch [Nicoderm] 14 mg TD Q24H patch.td24 04/26/17 [Rx] Oxygen 5 l NS AD 07/04/17 [History] Cefdinir [Omnicef] 300 mg PO BID #4 capsule 07/10/17 [Rx] Furosemide [Lasix] 40 mg PO TID #45 tablet 07/10/17 [Rx] predniSONE [PredniSONE] 10 mg PO DAILY 16 Days tablet 07/10/17 [Rx] Allergies/Adverse Reactions: 3 Allergy/AdvReac Type Severity Reaction Status Date / Time Penicillins Allergy Rash Verified 03/21/17 21:50 - Respiratory Orders Smoking Cessation: Smoking cessation has been advised. For more information, call the [place] Tobacco Quit Line at 9-072-BBVG-NOW. - Advance Directives Code Status: Full Code - Treatments List/Other: Decrease fluid intake. Continue with Lasix 40 mg 3 times a day. Prednisone taper as follows: 40 mg daily for 4 days, 30 mg for 4 days, 20 mg for 4 days and 10 mg for 4 days. Complete 2 more days of cefdinir - Diet Orders No Added Salt (SELIN) CERTIFICATION: I certify that the transfer of the above named patient to an Extended Care Facility is necessary for the continuing treatment of the diagnosis listed. The above information is true and accurate reflection of patient's current condition. Confidential - Redisclosure prohibited without a patient's written consent.
--- NOTE | 2017-07-10 12:56 | Internal Med Progress Note ---
Date of Encounter: 07/10/17 Time of Encounter: 12:52 - Assessment and plan (1) Acute and chronic respiratory failure Current Visit: Yes Status: Acute Assessment and plan: Acute on chronic hypoxic and hypercapnic respiratory failure secondary to acute COPD exacerbation triggered by possible acute bacterial bronchitis in combination of acute diastolic CHF exacerbation. Respiratory viral panel was negative. ABG is improving with pH 7.36 pCO2=78 pO2=79 still desaturating down to the 70s 1. Continue Lasix IV 40 mg TID 2. strict I's and daily weight 3. Increase dose of Solu-Medrol IV and Rocephin Day 6. COmpleted doses of Azithromycin 4. Continue BiPAP and DUOnebs ORDER CTA CHEST Chest x-ray showed findings of congestive heart failure Qualifiers: Respiratory failure complication: hypercapnia Qualified Code(s): J96.22 - Acute and chronic respiratory failure with hypercapnia (2) Acute on chronic diastolic CHF (congestive heart failure) Current Visit: Yes Status: Acute Assessment and plan: CXR show findings of CHF. Continue lasix as stated above. (3) HLD (hyperlipidemia) Current Visit: Yes Status: Acute Qualifiers: Hyperlipidemia type: pure hypercholesterolemia Qualified Code(s): E78.00 - Pure hypercholesterolemia, unspecified; E78.0 - Pure hypercholesterolemia (4) Non-insulin dependent type 2 diabetes mellitus Current Visit: Yes Status: Chronic Assessment and plan: Continue accuchecks and start insulin sliding scale (5) Tobacco abuse Current Visit: Yes Status: Chronic Assessment and plan: Smoking cessation counseling, nicotine patch (6) Hypertension Current Visit: No Status: Chronic Qualifiers: Hypertension type: essential hypertension Qualified Code(s): I10 - Essential (primary) hypertension (7) Morbid obesity Current Visit: No Status: Chronic (8) TYE (obstructive sleep apnea) Current Visit: No Status: Chronic - Subjective Interval history: Feeling still short of breath, coughing and bringing up phlegm, not complaining of chills anymore, fevers recorded, no abdominal pain, no diarrhea or dysuria. No chest pain - Constitutional Vitals: Temp Pulse Resp BP Pulse Ox 98.3 F 84 20 114/76 92 07/10/17 11:50 07/10/17 11:50 07/10/17 11:50 07/10/17 11:50 07/10/17 12:34 General appearance: Present: A&O X 3, morbidly obese, no acute distress, answers questions appropriately Exam: - Head Head exam: Present: atraumatic, normocephalic - Eye Eye exam: Present: PERRL, conjuntiva pink, sclera anicteric Pupils: Present: PERRL - Neck Neck exam general surgery: Present: supple, trachea midline. Absent: lymphadenopathy - Respiratory Respiratory exam: Present: CTAB, rales, wheezes (Diffuse crackles or wheezing). Absent: accessory muscle use, rhonchi - Cardiovascular Cardiovascular exam: Present: RRR, +S1, +S2. Absent: diastolic murmur, gallop, rubs, systolic murmur - GI/Abdominal GI/Abdominal exam: Present: normal bowel sounds, soft, no peritoneal signs. Absent: distended, tenderness - Extremities Exam Extremities exam: Present: pedal edema (+3 nonpitting edema), warm, radial pulses palpable and symmetrical. Absent: calf tenderness, cyanotic - Neurological Exam Neurological exam: Present: CN II-XII intact, oriented X3, no focal deficits. Absent: pronater drift, facial droop, speech deficit Additional comments: Leigh catheter in place Internal Medicine: Result - Labs CBC & Chem 7: 07/08/17 05:02 07/09/17 06:45 - ABG Interpretation ABG results: ABG ABG pH 7.36 pH Units (7.32-7.45) 07/06/17 05:23 ABG pCO2 78 mmHg (35-45) H* 07/06/17 05:23 ABG pO2 79 mmHg (85-104) L 07/06/17 05:23 ABG O2 Saturation 94 % (95-98) L 07/06/17 05:23 Consult Discharge Plan - Plan Instructions: Heart Failure (DC) Additional Instructions: Decrease fluid intake. Continue with Lasix 40 mg 3 times a day. Prednisone taper as follows: 40 mg daily for 4 days, 30 mg for 4 days, 20 mg for 4 days and 10 mg for 4 days. Complete 2 more days of cefdinir Referrals: Aleksey Huggins DO [Primary Care Provider] - Prescriptions: Cefdinir [Omnicef] 300 mg PO BID #4 capsule predniSONE [PredniSONE] 10 mg PO DAILY 16 Days tablet
--- NOTE | 2017-07-10 15:34 | Pulmonology Consult Note ---
Date of Encounter: 07/10/17 Time of Encounter: 03:30 Past Med Surg Social Fam HX - Past Medical History Medical history: arthritis, asthma, atrial fibrillation, CHF, COPD, diabetes, GERD, hyperlipidemia, hypertension, osteoporosis, valvular heart disease, other Psychiatric history: no psych history - Past Surgical History Surgical History: non-contributory, other - Social History Smoking Status: Former smoker Smokeless Tobacco Status: No Alcohol use: rarely Drug use: none - Family History Mother Living Status: Hx Family Cardiac Disorders: Yes Hx Family Endocrine Disorder: Yes (DM) Father Living Status: Hx Family Respiratory Disorders: Yes (Asthma, COPD, Emphysema) Medications and Allergies Albuterol Sulfate [Proair Hfa] 2 puff IH Q4H PRN 09/08/15 [History] Simvastatin [Zocor] 40 mg PO HS 09/08/15 [History] Aspirin 325 mg PO DAILY #60 tablet 09/19/15 [Rx] Diltiazem CD (24hr) [Cardizem CD] 360 mg PO DAILY #30 cap.er.24h 09/19/15 [Rx] Metoprolol [Lopressor] 50 mg PO BID #60 tablet 09/19/15 [Rx] Ipratropium/Albuterol Neb [Duoneb] 3 ml IH [id number] PRN inh 12/08/16 [Rx] Fluticasone/Vilanterol [Breo Ellipta 100-25 Mcg INH] 1 puff IH DAILY 04/22/17 [ History] Albuterol Neb [Proventil Neb] 2.5 mg IH [id number] inhsol 04/26/17 [Rx] Melatonin 3 mg PO HS PRN tablet 04/26/17 [Rx] Nicotine Patch [Nicoderm] 14 mg TD Q24H patch.td24 04/26/17 [Rx] Oxygen 5 l NS AD 07/04/17 [History] Cefdinir [Omnicef] 300 mg PO BID #4 capsule 07/10/17 [Rx] Furosemide [Lasix] 40 mg PO TID #45 tablet 07/10/17 [Rx] predniSONE [PredniSONE] 10 mg PO DAILY 16 Days tablet 07/10/17 [Rx] 3 Allergy/AdvReac Type Severity Reaction Status Date / Time Penicillins Allergy Rash Verified 03/21/17 21:50 All Systems: The remainder of the systems were reviewed and are negative Physical Examination Vital Signs: Vital Signs, Last 4 Hours Temp Pulse Resp BP Pulse Ox 07/10/17 12:34 92 07/10/17 11:50 98.3 F 84 20 114/76 92 Results - Laboratory Findings CBC and BMP: 07/08/17 05:02 07/09/17 06:45 ABG ABG pH 7.36 pH Units (7.32-7.45) 07/06/17 05:23 ABG pCO2 78 mmHg (35-45) H* 07/06/17 05:23 ABG pO2 79 mmHg (85-104) L 07/06/17 05:23 ABG O2 Saturation 94 % (95-98) L 07/06/17 05:23 Abnormal lab findings: Abnormal lab results RBC 3.20 M/mcL (3.82-4.97) L 07/08/17 05:02 Hgb 7.9 g/dL (11.5-15.4) L 07/08/17 05:02 Hct 29.4 % (35.3-44.9) L 07/08/17 05:02 MCH 24.7 pg (28.0-33.3) L 07/08/17 05:02 MCHC 26.9 g/dL (31.6-35.5) L 07/08/17 05:02 RDW 18.7 % (11.5-14.5) H 07/08/17 05:02 Neutrophils # 9.2 K/mcL (1.6-8.9) H 07/08/17 05:02 Lymphocytes # 0.5 K/mcL (0.6-4.6) L 07/08/17 05:02 Nucleated RBCs/100 WBC 1.3 /100 WBC (0) H 07/08/17 05:02 Large Platelets Present (Not Present) A 07/08/17 05:02 Polychromasia 1+ (Not Present) A 07/08/17 05:02 Hypochromasia Present (Not Present) A 07/08/17 05:02 Poikilocytosis 1+ (Not Present) A 07/07/17 04:22 Anisocytosis 2+ (Not Present) A 07/08/17 05:02 Microcytosis Present (Not Present) A 07/08/17 05:02 Macrocytosis Present (Not Present) A 07/08/17 05:02 Stomatocytes 1+ (Not Present) A 07/08/17 05:02 ABG pCO2 78 mmHg (35-45) H* 07/06/17 05:23 ABG pO2 79 mmHg (85-104) L 07/06/17 05:23 ABG HCO3 44 mEq/L (21-27) H 07/06/17 05:23 ABG Total CO2 46 mEq/L (20-26) H 07/06/17 05:23 ABG O2 Saturation 94 % (95-98) L 07/06/17 05:23 ABG Base Excess 16 mEq/L (-2 to 3) H 07/06/17 05:23 VBG pH 7.17 pH Units (7.32-7.42) L* 07/04/17 17:37 VBG pCO2 119 mmHg (41-51) H* 07/04/17 17:37 VBG pO2 100 mmHg (25-50) H 07/04/17 17:37 VBG HCO3 43 mEq/L (21-27) H 07/04/17 17:37 Chloride 93 mEq/L (98-107) L 07/09/17 06:45 Carbon Dioxide 41 mEq/L (23-29) H* 07/09/17 06:45 BUN 35 mg/dL (6-20) H 07/09/17 06:45 BUN/Creatinine Ratio 45 (6-26) H 07/09/17 06:45 Glucose 211 mg/dL (70-105) H 07/09/17 06:45 POC Glucose 249 (58-89) H 07/09/17 20:54 Calculated Osmolality 304 (280-300) H 07/09/17 06:45 Calcium 8.5 mg/dL (8.6-10.3) L 07/09/17 06:45 B-Natriuretic Peptide 863 pg/mL (Less than 100) H 07/04/17 14:31 - Clinical Findings Intake & Output: Intake & Output 07/09/17 07/10/17 07/10/17 23:59 07:59 15:59 Intake Total 420 / 420 Output Total 2650 / 2650 1100 / 1100 1700 / 1700 Balance -2650 / -2650 -1100 / -1100 -1280 / -1280 Weight 204.1 kg Consult Discharge Plan - Plan Instructions: Heart Failure (DC) Additional Instructions: Decrease fluid intake. Continue with Lasix 40 mg 3 times a day. Prednisone taper as follows: 40 mg daily for 4 days, 30 mg for 4 days, 20 mg for 4 days and 10 mg for 4 days. Complete 2 more days of cefdinir Referrals: Aleksey Huggins DO [Primary Care Provider] - Prescriptions: Cefdinir [Omnicef] 300 mg PO BID #4 capsule predniSONE [PredniSONE] 10 mg PO DAILY 16 Days tablet
[2017-07-10 16:00] LABS: Basophils % 0.2 %; Hemoglobin 8.7 g/dL (11.5-15.4); Monocytes % 5.1 %
[2017-07-10] MEDS ORDERED: MetroNIDAZOLE 500 MG/100 ML 500 MG/100 ML BAG IVPB SCH (16:00)
[2017-07-10] MEDS ORDERED: Levofloxacin 750 MG/150 ML 750 MG/150 ML BAG IVPB SCH (16:00)
[2017-07-10] MEDS ORDERED: Cefepime HCl 1,000 MG in Water for inj. (sterile) 20 ML 10 ML IVPB SCH (16:00)
[2017-07-10 16:01] LABS: Hematocrit 31.5 % (35.3-44.9); Immature Granulocytes % 2.4 % (0-4); Lymphocytes # 0.8 K/mcL (0.6-4.6); Lymphocytes % 6.5 %; Mean Corpuscular HGB Conc 27.6 g/dL (31.6-35.5); Mean Corpuscular Hemoglobin 24.8 pg (28.0-33.3); Mean Corpuscular Volume 89.7 fL (83.0-100.0); Mean Platelet Volume 10.1 fL (9.4-12.4); Monocytes # 0.7 K/mcL (0.0-1.3); Neutrophils # 10.9 K/mcL (1.6-8.9); Platelet Count 439 K/mcL (140-400); Red Blood Count 3.51 M/mcL (3.82-4.97); Red Cell Distribution Width 18.6 % (11.5-14.5); Segmented Neutrophils % 85.8 %
[2017-07-10] MEDS: MethylPREDNISolone 40 MG/ML VIAL IVP SCH ×2 (16:21→20:15)
[2017-07-10 16:40] LABS: Anisocytosis 1+ (Not Present); Hypochromasia Present (Not Present)
[2017-07-10 16:41] LABS: Platelet Estimate Normal (Normal)
[2017-07-10 16:46] LABS: BUN/Creatinine Ratio 53 (6-26); Blood Urea Nitrogen 38 mg/dL (6-20); Calcium 8.9 mg/dL (8.6-10.3); Carbon Dioxide 44 mEq/L (23-29); Chloride 92 mEq/L (98-107); Glucose 257 mg/dL (70-105); Osmolality,Calculated 308 (280-300); Potassium 4.6 mEq/L (3.5-5.1); Sodium 140 mEq/L (136-145); eGFR For African Americans > 60 (> 60); eGFR For Non-African Americans > 60 (> 60)
[2017-07-10 16:53] LABS: ABG Base Excess 20 mEq/L (-2 to 3); ABG HCO3 47 mEq/L (21-27); ABG Oxygen Saturation 95 % (95-98); ABG PCO2 72 mmHg (35-45); ABG PH 7.43 pH Units (7.32-7.45); ABG PO2 79 mmHg (85-104); ABG TCO2 49 mEq/L (20-26)
--- NOTE | 2017-07-10 16:59 | Pulmonology Consult Note ---
<Ulises Valera - Last Filed: 07/10/17 17:56> Date of Encounter: 07/10/17 Time of Encounter: 15:00 Assessment and Plan (1) Acute and chronic respiratory failure Current Visit: Yes Status: Acute ABG 07/10: 7.42, saturating well on 18/12 bipap continue steroid: solu-medrol 40mg IVP qid Diurese with Lasix 40mg IVP BID NPO - speech eval Percussive therapy Cont Vanc, starting Aztreonam/allergy to Zosyn in record; cont flagyl Qualifiers: Respiratory failure complication: hypercapnia Qualified Code(s): J96.22 - Acute and chronic respiratory failure with hypercapnia (2) Acute on chronic diastolic CHF (congestive heart failure) Current Visit: Yes Status: Acute CXR shows cardiomegaly. CTA shows bilateral pleural effusions with right basilar atelectasis. (3) Morbid obesity with BMI of 70 and over, adult Current Visit: Yes Status: Chronic Guarded prognosis if patient needs intubation, potentially difficult cpap weaning. Patient tolerating 18/12 bipap with acceptable ABG (7.42) (4) Non-insulin dependent type 2 diabetes mellitus Current Visit: Yes Status: Chronic (5) Tobacco abuse Current Visit: Yes Status: Chronic Continues to smoke, reports 2-3 cigarettes every few days. Has been on NRT, 14mg TD daily. (6) DVT prophylaxis Current Visit: Yes Status: Acute Continue lovenox. History of Present Illness Consult date: 07/10/17 Requesting physician: Everton Stoll Reason for consult: dyspnea Chief complaint: Acute resp failure History of present illness: Interval history: Admitted 07/04: 56F, on 4L home O2/cpap at night, [facility] for ronan. Pulse ox 70s before arrival; placed on bipap. Workup: acute on chronic resp failure with hypoxia and hypercapnia in setting of acute on chronic COPD exacerbation. PMH: severe pulm htn, copd, non-insulin dep DM, diastolic CHF Tx'd with steroids, lasix, rocephin; initially stable on the to be dc'd to ECF, however, patient desaturated to 70s on nasal cannula. Patient seen today, mild labored breathing on bipap /. ABG pending. Past Med Surg Social Fam HX - Past Medical History Medical history: arthritis, asthma, atrial fibrillation, CHF, COPD, diabetes, GERD, hyperlipidemia, hypertension, osteoporosis, valvular heart disease, other Psychiatric history: no psych history - Past Surgical History Surgical History: non-contributory, other - Social History Smoking Status: Former smoker Smokeless Tobacco Status: No Alcohol use: rarely Drug use: none - Family History Mother Living Status: Hx Family Cardiac Disorders: Yes Hx Family Endocrine Disorder: Yes (DM) Father Living Status: Hx Family Respiratory Disorders: Yes (Asthma, COPD, Emphysema) Medications and Allergies Albuterol Sulfate [Proair Hfa] 2 puff IH Q4H PRN 09/08/15 [History] Simvastatin [Zocor] 40 mg PO HS 09/08/15 [History] Aspirin 325 mg PO DAILY #60 tablet 09/19/15 [Rx] Diltiazem CD (24hr) [Cardizem CD] 360 mg PO DAILY #30 cap.er.24h 09/19/15 [Rx] Metoprolol [Lopressor] 50 mg PO BID #60 tablet 09/19/15 [Rx] Ipratropium/Albuterol Neb [Duoneb] 3 ml IH [id number] PRN inh 12/08/16 [Rx] Fluticasone/Vilanterol [Breo Ellipta 100-25 Mcg INH] 1 puff IH DAILY 04/22/17 [ History] Albuterol Neb [Proventil Neb] 2.5 mg IH [id number] inhsol 04/26/17 [Rx] Melatonin 3 mg PO HS PRN tablet 04/26/17 [Rx] Nicotine Patch [Nicoderm] 14 mg TD Q24H patch.td24 04/26/17 [Rx] Oxygen 5 l NS AD 07/04/17 [History] Cefdinir [Omnicef] 300 mg PO BID #4 capsule 07/10/17 [Rx] Furosemide [Lasix] 40 mg PO TID #45 tablet 07/10/17 [Rx] predniSONE [PredniSONE] 10 mg PO DAILY 16 Days tablet 07/10/17 [Rx] 3 Allergy/AdvReac Type Severity Reaction Status Date / Time Penicillins Allergy Rash Verified 03/21/17 21:50 All Systems: The remainder of the systems were reviewed and are negative - Constitutional Constitutional: lethargy - Cardiovascular Cardiovascular: dyspnea - Respiratory Respiratory: dyspnea Physical Examination Vital Signs: Vital Signs, Last 4 Hours Temp Pulse Resp BP Pulse Ox 07/10/17 16:10 98.3 F 80 18 106/76 89 07/10/17 15:34 35 114/76 88 General appearance: alert, lethargic Eyes: nonicteric Effort: mildly labored Auscultation: bilateral: diminished breath sounds Cardiovascular: regular rate and rhythm Integumentary: other (lips cyanotic) Extremities: edema (trace) Musculoskeletal: no deformities non-focal exam Results - Laboratory Findings CBC and BMP: 07/10/17 15:35 07/10/17 15:35 ABG ABG pH 7.43 pH Units (7.32-7.45) 07/10/17 16:48 ABG pCO2 72 mmHg (35-45) H* 07/10/17 16:48 ABG pO2 79 mmHg (85-104) L 07/10/17 16:48 ABG O2 Saturation 95 % (95-98) 07/10/17 16:48 Abnormal lab findings: Abnormal lab results WBC 12.7 K/mcL (4.3-11.1) H 07/10/17 15:35 RBC 3.51 M/mcL (3.82-4.97) L 07/10/17 15:35 Hgb 8.7 g/dL (11.5-15.4) L 07/10/17 15:35 Hct 31.5 % (35.3-44.9) L 07/10/17 15:35 MCH 24.8 pg (28.0-33.3) L 07/10/17 15:35 MCHC 27.6 g/dL (31.6-35.5) L 07/10/17 15:35 RDW 18.6 % (11.5-14.5) H 07/10/17 15:35 Plt Count 439 K/mcL (140-400) H 07/10/17 15:35 Neutrophils # 10.9 K/mcL (1.6-8.9) H 07/10/17 15:35 Nucleated RBCs/100 WBC 2.0 /100 WBC (0) H 07/10/17 15:35 Large Platelets Present (Not Present) A 07/08/17 05:02 Polychromasia 1+ (Not Present) A 07/08/17 05:02 Hypochromasia Present (Not Present) A 07/10/17 15:35 Poikilocytosis 1+ (Not Present) A 07/07/17 04:22 Anisocytosis 1+ (Not Present) A 07/10/17 15:35 Microcytosis Present (Not Present) A 07/08/17 05:02 Macrocytosis Present (Not Present) A 07/08/17 05:02 Stomatocytes 1+ (Not Present) A 07/08/17 05:02 ABG pCO2 72 mmHg (35-45) H* 07/10/17 16:48 ABG pO2 79 mmHg (85-104) L 07/10/17 16:48 ABG HCO3 47 mEq/L (21-27) H 07/10/17 16:48 ABG Total CO2 49 mEq/L (20-26) H 07/10/17 16:48 ABG Base Excess 20 mEq/L (-2 to 3) H 07/10/17 16:48 VBG pH 7.17 pH Units (7.32-7.42) L* 07/04/17 17:37 VBG pCO2 119 mmHg (41-51) H* 07/04/17 17:37 VBG pO2 100 mmHg (25-50) H 07/04/17 17:37 VBG HCO3 43 mEq/L (21-27) H 07/04/17 17:37 Chloride 92 mEq/L (98-107) L 07/10/17 15:35 Carbon Dioxide 44 mEq/L (23-29) H* 07/10/17 15:35 BUN 38 mg/dL (6-20) H 07/10/17 15:35 BUN/Creatinine Ratio 53 (6-26) H 07/10/17 15:35 Glucose 257 mg/dL (70-105) H 07/10/17 15:35 POC Glucose 296 (58-89) H 07/10/17 16:16 Calculated Osmolality 308 (280-300) H 07/10/17 15:35 B-Natriuretic Peptide 863 pg/mL (Less than 100) H 07/04/17 14:31 - Clinical Findings Intake & Output: Intake & Output 07/10/17 07/10/17 07/10/17 07:59 15:59 23:59 Intake Total 420 / 420 Output Total 1100 / 1100 1700 / 1700 900 / 900 Balance -1100 / -1100 -1280 / -1280 -900 / -900 Weight 204.1 kg Consult Discharge Plan - Plan Instructions: Heart Failure (DC) Additional Instructions: Decrease fluid intake. Continue with Lasix 40 mg 3 times a day. Prednisone taper as follows: 40 mg daily for 4 days, 30 mg for 4 days, 20 mg for 4 days and 10 mg for 4 days. Complete 2 more days of cefdinir Referrals: Aleksey Huggins DO [Primary Care Provider] - Prescriptions: Cefdinir [Omnicef] 300 mg PO BID #4 capsule predniSONE [PredniSONE] 10 mg PO DAILY 16 Days tablet <Smita Jensen S - Last Filed: 07/10/17 21:26> Date of Encounter: 07/10/17 All Systems: The remainder of the systems were reviewed and are negative Physical Examination Vital Signs: Vital Signs, Last 4 Hours Resp BP Pulse Ox 07/10/17 20:16 22 106/76 95 Results - Laboratory Findings CBC and BMP: 07/10/17 15:35 07/10/17 15:35 ABG ABG pH 7.43 pH Units (7.32-7.45) 07/10/17 16:48 ABG pCO2 72 mmHg (35-45) H* 07/10/17 16:48 ABG pO2 79 mmHg (85-104) L 07/10/17 16:48 ABG O2 Saturation 95 % (95-98) 07/10/17 16:48 Abnormal lab findings: Abnormal lab results WBC 12.7 K/mcL (4.3-11.1) H 07/10/17 15:35 RBC 3.51 M/mcL (3.82-4.97) L 07/10/17 15:35 Hgb 8.7 g/dL (11.5-15.4) L 07/10/17 15:35 Hct 31.5 % (35.3-44.9) L 07/10/17 15:35 MCH 24.8 pg (28.0-33.3) L 07/10/17 15:35 MCHC 27.6 g/dL (31.6-35.5) L 07/10/17 15:35 RDW 18.6 % (11.5-14.5) H 07/10/17 15:35 Plt Count 439 K/mcL (140-400) H 07/10/17 15:35 Neutrophils # 10.9 K/mcL (1.6-8.9) H 07/10/17 15:35 Nucleated RBCs/100 WBC 2.0 /100 WBC (0) H 07/10/17 15:35 Large Platelets Present (Not Present) A 07/08/17 05:02 Polychromasia 1+ (Not Present) A 07/08/17 05:02 Hypochromasia Present (Not Present) A 07/10/17 15:35 Poikilocytosis 1+ (Not Present) A 07/07/17 04:22 Anisocytosis 1+ (Not Present) A 07/10/17 15:35 Microcytosis Present (Not Present) A 07/08/17 05:02 Macrocytosis Present (Not Present) A 07/08/17 05:02 Stomatocytes 1+ (Not Present) A 07/08/17 05:02 ABG pCO2 72 mmHg (35-45) H* 07/10/17 16:48 ABG pO2 79 mmHg (85-104) L 07/10/17 16:48 ABG HCO3 47 mEq/L (21-27) H 07/10/17 16:48 ABG Total CO2 49 mEq/L (20-26) H 07/10/17 16:48 ABG Base Excess 20 mEq/L (-2 to 3) H 07/10/17 16:48 VBG pH 7.17 pH Units (7.32-7.42) L* 07/04/17 17:37 VBG pCO2 119 mmHg (41-51) H* 07/04/17 17:37 VBG pO2 100 mmHg (25-50) H 07/04/17 17:37 VBG HCO3 43 mEq/L (21-27) H 07/04/17 17:37 Chloride 92 mEq/L (98-107) L 07/10/17 15:35 Carbon Dioxide 44 mEq/L (23-29) H* 07/10/17 15:35 BUN 38 mg/dL (6-20) H 07/10/17 15:35 BUN/Creatinine Ratio 53 (6-26) H 07/10/17 15:35 Glucose 257 mg/dL (70-105) H 07/10/17 15:35 POC Glucose 296 (58-89) H 07/10/17 16:16 Calculated Osmolality 308 (280-300) H 07/10/17 15:35 B-Natriuretic Peptide 863 pg/mL (Less than 100) H 07/04/17 14:31 - Clinical Findings Intake & Output: Intake & Output 07/10/17 07/10/17 07/10/17 07:59 15:59 23:59 Intake Total 420 / 420 Output Total 1100 / 1100 1700 / 1700 900 / 900 Balance -1100 / -1100 -1280 / -1280 -900 / -900 Weight 204.1 kg - Attending Attestation I saw and evaluated this patient and my medical decision-making was reviewed with the Resident Physician. I agree with the documented findings, disposition and treatment plan as described except to the extent set forth below. We independently had [id number] contact with the patient I spent 32 minutes of Critical Care time with this patient. It involved decision making of high complexity to assess, manipulate, and support vital organ system failure and/or to prevent further life threatening deterioration of the patient's condition. The time involved in the performance of separately reportable procedures was not counted toward critical care time. Patient seen and examined at bedside Labs, radiology, chart personally reviewed. 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 To Continue BIPAP 24/04 will change to AVAPS if that gives increased tidal volume . ABG looks stable Cards:Acute On Chronic Diastolic heart failure will diurese will change PO lopressor to IV lopressor . FEN-GI: NPO patient has aspiration risk Renal: Labs and output reviewed ID: [id number] will continue broad spectrum antibiotics Vanc, Aztreonam and flagyl Heme/Onc:Labs reviewed Endo: Glucose Monitored Integ/MSK: Skin Care per routine ICU Nursing Protocol to prevent ulcers. Lines: All lines examined without evidence of infection : Dispo: Patient is critically ill high risk of worsening respiratory failure requiring intubation . CODE:Full Code
[2017-07-10] MEDS ORDERED: Melatonin 3 MG TABLET PO PRN (19:30)
[2017-07-10] MEDS ORDERED: D5% in Water 1,000 ML IVC PRN (19:30)
[2017-07-10] MEDS ORDERED: *HR* Dextrose 50 % in Water (Syg) 50 ML SYRINGE IVP PRN (19:30)
[2017-07-10] MEDS ORDERED: Dextrose Gel 15 GM/37.5 ML TUBE PO PRN ×2 (19:30)
[2017-07-10] MEDS ORDERED: *HR* Metoprolol 5 MG/5 ML VIAL IVP ONE (20:10)
[2017-07-11] MEDS ORDERED: Aztreonam 1,000 MG in 0.9 % Sodium Chloride Mini Bag 100 ML IVPB SCH
[2017-07-11] MEDS: MetroNIDAZOLE 500 MG/100 ML 500 MG/100 ML BAG IVPB SCH ×3 (00:40→15:41)
[2017-07-11] MEDS: *HR* Metoprolol 5 MG/5 ML VIAL IVP SCH ×4 (00:41→17:54)
[2017-07-11] MEDS: Ipratropium/Albuterol Neb 3 ML IH SCH ×6 (03:15→23:30)
[2017-07-11 03:56] LABS: Red Cell Distribution Width 18.6 % (11.5-14.5)
[2017-07-11 03:57] LABS: Mean Corpuscular HGB Conc 27.6 g/dL (31.6-35.5); Mean Corpuscular Hemoglobin 24.6 pg (28.0-33.3); Mean Corpuscular Volume 89.2 fL (83.0-100.0); Mean Platelet Volume 10.2 fL (9.4-12.4); Platelet Count 376 K/mcL (140-400); Red Blood Count 3.25 M/mcL (3.82-4.97)
[2017-07-11 04:29] LABS: Chloride 92 mEq/L (98-107); Potassium 4.1 mEq/L (3.5-5.1); Sodium 142 mEq/L (136-145)
[2017-07-11 04:31] LABS: BUN/Creatinine Ratio 67 (6-26); Blood Urea Nitrogen 37 mg/dL (6-20); Calcium 8.7 mg/dL (8.6-10.3); Carbon Dioxide 45 mEq/L (23-29); Glucose 230 mg/dL (70-105); Osmolality,Calculated 310 (280-300); eGFR For African Americans > 60 (> 60); eGFR For Non-African Americans > 60 (> 60)
[2017-07-11] MEDS: *HR* Enoxaparin 40 MG/0.4 ML SYRINGE SQ SCH (05:27)
[2017-07-11] MEDS: Insulin LISPRO 300 UNITS/3 ML VIAL SQ SCH ×4 (07:42→21:34)
[2017-07-11] MEDS: Aspirin 325 MG TABLET PO SCH (07:46)
[2017-07-11] MEDS: Diltiazem CD (24hr) 180 MG CAPSULE PO SCH (07:48)
[2017-07-11] MEDS: MethylPREDNISolone 40 MG/ML VIAL IVP SCH ×4 (07:52→21:30)
[2017-07-11] MEDS: Nicotine 14 MG PATCH.TD24 TD SCH (07:53)
[2017-07-11] MEDS ORDERED: Furosemide 40 MG/4 ML VIAL IVP SCH (08:00)
[2017-07-11] MEDS: Nystatin POWDER 30 GM BOTTLE TP SCH ×2 (08:02→21:34)
--- NOTE | 2017-07-11 08:47 | Pulmonology Progress Note ---
<Juan Diego Moreira - Last Filed: 07/11/17 10:50> Date of Encounter: 07/11/17 Time of Encounter: 07:00 Assessment and Plan (1) Acute and chronic respiratory failure Current Visit: Yes Status: Acute Basline home 4L supplemental O2 continuously with CPAP at night. In the setting of severe pulmonary hypertension, COPD. Pulse ox reportedly in 70's at home on EMS arrival. Continue BiPap wean. If patient can eventually tolerate Oxymask for 10-15 minutes, Then awake bronchoscpy at bedside to evaluate left bronchi. Consider awake intubation with precedex if needed. Empiric antibiotics Vancomycin Flagyl Aggressive lung clearance measures: DuoNeb bronchodilator IH NAC mucolytic SoluMedrol Manual chest percussive therapy Encourage strong coughing NPO diet given BiPap dependency and aspiration risk. Qualifiers: Respiratory failure complication: hypercapnia Qualified Code(s): J96.22 - Acute and chronic respiratory failure with hypercapnia (2) Acute on chronic diastolic CHF (congestive heart failure) Current Visit: Yes Status: Acute Echo 07/2016: LVEF 65-70% with LV diastolic dysfunction, tricuspid regurgitation. Severe pulmonary hypertension (60mmHg). Cardiomegaly on CXR. CTA BL pleural effusion with right basilar atelectasis. (3) COPD (chronic obstructive pulmonary disease) Current Visit: No Status: Acute 30 pk yr hx of smoking. Plan as above. Qualifiers: COPD type: unspecified COPD Qualified Code(s): J44.9 - Chronic obstructive pulmonary disease, unspecified (4) Morbid obesity with BMI of 70 and over, adult Current Visit: Yes Status: Chronic Guarded prognosis if patient needs intubation; likely a difficult intubation both with patient's anatomy as well as her low pulmonary resurve. Potentially difficult cpap weaning for extubation. Patient tolerating BiPap at this time. (5) Non-insulin dependent type 2 diabetes mellitus Current Visit: Yes Status: Chronic On sliding scale insulin while in the ICU. (6) Tobacco abuse Current Visit: No Status: Acute Hx 1ppd x 30yr. Reportedly quit smoking tobacco 1 month ago. Discussed with the patient the need to continue tobacco abstinence notably in the setting of her current medical condition. (7) Atrial fibrillation Current Visit: Yes Status: Chronic Hx chronic atrial fibrillation. Currently NSR. Home meds: metoprolol 50mg PO BID, cardizem CD 360mg PO daily Cover with lopressor 5mg IV and cardizem Qualifiers: Atrial fibrillation type: chronic Qualified Code(s): I48.2 - Chronic atrial fibrillation (8) DVT prophylaxis Current Visit: Yes Status: Acute Lovenox Subjective Principal diagnosis: Acute on chronic respiratory failure Interval history: Hospital day 6/ICU day 2 Patient remains BiPap dependent. Her BiPap settings are being weaned down as more lung is recruited. AM CXR shows persistent complete left lung white-out. Will attempt awake bronchoscopy today if patient is able to eventually tolerate a 10-15 minute trial off BiPap and on OxyMask. Continue empiric antibiotic coverage. Patient is requesting food; discussed with her the seriousness of her condition, her inability to be off BiPap for PO intake, her high risk of aspiration, and the need to remain NPO to protect her lungs. She expressed understanding. Objective PUL Vital signs: Last Vital Signs Temp 97.8 F 07/11/17 04:00 Pulse 87 07/11/17 08:00 Resp 20 07/11/17 08:00 BP 99/70 07/11/17 08:00 Pulse Ox 98 07/11/17 08:00 General appearance: no acute distress, alert Eyes: nonicteric ENT: oropharynx moist Neck: supple Effort: normal Auscultation: left: diminished breath sounds, right: wheezes Cardiovascular: regular rate and rhythm Gastrointestinal: normoactive bowel sounds, soft, non-tender, non-distended, other (obese) Integumentary: normal Extremities: no cyanosis, no edema, no clubbing, pink and warm, pulses normal, no ischemia or petechiae Musculoskeletal: no deformities normal mental status, non-focal exam, pupils equal and round, motor strength normal and symmetric mood appropriate Results - Laboratory Findings CBC and BMP: 07/11/17 02:59 07/11/17 02:59 ABG ABG pH 7.43 pH Units (7.32-7.45) 07/10/17 16:48 ABG pCO2 72 mmHg (35-45) H* 07/10/17 16:48 ABG pO2 79 mmHg (85-104) L 07/10/17 16:48 ABG O2 Saturation 95 % (95-98) 07/10/17 16:48 Abnormal lab findings: Abnormal lab results RBC 3.25 M/mcL (3.82-4.97) L 07/11/17 02:59 Hgb 8.0 g/dL (11.5-15.4) L 07/11/17 02:59 Hct 29.0 % (35.3-44.9) L 07/11/17 02:59 MCH 24.6 pg (28.0-33.3) L 07/11/17 02:59 MCHC 27.6 g/dL (31.6-35.5) L 07/11/17 02:59 RDW 18.6 % (11.5-14.5) H 07/11/17 02:59 Neutrophils # 10.9 K/mcL (1.6-8.9) H 07/10/17 15:35 Nucleated RBCs/100 WBC 2.0 /100 WBC (0) H 07/10/17 15:35 Large Platelets Present (Not Present) A 07/08/17 05:02 Polychromasia 1+ (Not Present) A 07/08/17 05:02 Hypochromasia Present (Not Present) A 07/10/17 15:35 Poikilocytosis 1+ (Not Present) A 07/07/17 04:22 Anisocytosis 1+ (Not Present) A 07/10/17 15:35 Microcytosis Present (Not Present) A 07/08/17 05:02 Macrocytosis Present (Not Present) A 07/08/17 05:02 Stomatocytes 1+ (Not Present) A 07/08/17 05:02 ABG pCO2 72 mmHg (35-45) H* 07/10/17 16:48 ABG pO2 79 mmHg (85-104) L 07/10/17 16:48 ABG HCO3 47 mEq/L (21-27) H 07/10/17 16:48 ABG Total CO2 49 mEq/L (20-26) H 07/10/17 16:48 ABG Base Excess 20 mEq/L (-2 to 3) H 07/10/17 16:48 VBG pH 7.17 pH Units (7.32-7.42) L* 07/04/17 17:37 VBG pCO2 119 mmHg (41-51) H* 07/04/17 17:37 VBG pO2 100 mmHg (25-50) H 07/04/17 17:37 VBG HCO3 43 mEq/L (21-27) H 07/04/17 17:37 Chloride 92 mEq/L (98-107) L 07/11/17 02:59 Carbon Dioxide 45 mEq/L (23-29) H* 07/11/17 02:59 BUN 37 mg/dL (6-20) H 07/11/17 02:59 Creatinine 0.55 mg/dL (0.60-1.20) L 07/11/17 02:59 BUN/Creatinine Ratio 67 (6-26) H 07/11/17 02:59 Glucose 230 mg/dL (70-105) H 07/11/17 02:59 POC Glucose 237 (58-89) H 07/10/17 19:57 Calculated Osmolality 310 (280-300) H 07/11/17 02:59 B-Natriuretic Peptide 863 pg/mL (Less than 100) H 07/04/17 14:31 - Clinical Findings Intake & Output: Intake & Output 07/10/17 07/11/17 07/11/17 23:59 07:59 15:59 Intake Total 100 / 100 Output Total 1100 / 1100 1900 / 1900 Balance -1100 / -1100 -1800 / -1800 Weight 204 kg 201.4 kg Consult Discharge Plan - Plan Instructions: Heart Failure (DC) Additional Instructions: Decrease fluid intake. Continue with Lasix 40 mg 3 times a day. Prednisone taper as follows: 40 mg daily for 4 days, 30 mg for 4 days, 20 mg for 4 days and 10 mg for 4 days. Complete 2 more days of cefdinir Referrals: Aleksey Huggins DO [Primary Care Provider] - Prescriptions: Cefdinir [Omnicef] 300 mg PO BID #4 capsule predniSONE [PredniSONE] 10 mg PO DAILY 16 Days tablet <Smita Jensen - Last Filed: 07/11/17 21:29> Date of Encounter: 07/11/17 Objective PUL Vital signs: Last Vital Signs Temp 98.8 F 07/11/17 20:23 Pulse 89 07/11/17 21:00 Resp 25 07/11/17 21:00 BP 107/86 07/11/17 21:00 Pulse Ox 95 07/11/17 21:00 Results - Laboratory Findings CBC and BMP: 07/11/17 02:59 07/11/17 02:59 ABG ABG pH 7.43 pH Units (7.32-7.45) 07/10/17 16:48 ABG pCO2 72 mmHg (35-45) H* 07/10/17 16:48 ABG pO2 79 mmHg (85-104) L 07/10/17 16:48 ABG O2 Saturation 95 % (95-98) 07/10/17 16:48 PT/INR, D-dimer PT 15.5 Seconds (9.4-12.1) H 07/11/17 09:10 Abnormal lab findings: Abnormal lab results RBC 3.25 M/mcL (3.82-4.97) L 07/11/17 02:59 Hgb 8.0 g/dL (11.5-15.4) L 07/11/17 02:59 Hct 29.0 % (35.3-44.9) L 07/11/17 02:59 MCH 24.6 pg (28.0-33.3) L 07/11/17 02:59 MCHC 27.6 g/dL (31.6-35.5) L 07/11/17 02:59 RDW 18.6 % (11.5-14.5) H 07/11/17 02:59 Neutrophils # 10.9 K/mcL (1.6-8.9) H 07/10/17 15:35 Nucleated RBCs/100 WBC 2.0 /100 WBC (0) H 07/10/17 15:35 Large Platelets Present (Not Present) A 07/08/17 05:02 Polychromasia 1+ (Not Present) A 07/08/17 05:02 Hypochromasia Present (Not Present) A 07/10/17 15:35 Poikilocytosis 1+ (Not Present) A 07/07/17 04:22 Anisocytosis 1+ (Not Present) A 07/10/17 15:35 Microcytosis Present (Not Present) A 07/08/17 05:02 Macrocytosis Present (Not Present) A 07/08/17 05:02 Stomatocytes 1+ (Not Present) A 07/08/17 05:02 PT 15.5 Seconds (9.4-12.1) H 07/11/17 09:10 ABG pCO2 72 mmHg (35-45) H* 07/10/17 16:48 ABG pO2 79 mmHg (85-104) L 07/10/17 16:48 ABG HCO3 47 mEq/L (21-27) H 07/10/17 16:48 ABG Total CO2 49 mEq/L (20-26) H 07/10/17 16:48 ABG Base Excess 20 mEq/L (-2 to 3) H 07/10/17 16:48 VBG pH 7.17 pH Units (7.32-7.42) L* 07/04/17 17:37 VBG pCO2 119 mmHg (41-51) H* 07/04/17 17:37 VBG pO2 100 mmHg (25-50) H 07/04/17 17:37 VBG HCO3 43 mEq/L (21-27) H 07/04/17 17:37 Chloride 92 mEq/L (98-107) L 07/11/17 02:59 Carbon Dioxide 45 mEq/L (23-29) H* 07/11/17 02:59 BUN 37 mg/dL (6-20) H 07/11/17 02:59 Creatinine 0.55 mg/dL (0.60-1.20) L 07/11/17 02:59 BUN/Creatinine Ratio 67 (6-26) H 07/11/17 02:59 Glucose 230 mg/dL (70-105) H 07/11/17 02:59 POC Glucose 237 (58-89) H 07/10/17 19:57 Calculated Osmolality 310 (280-300) H 07/11/17 02:59 B-Natriuretic Peptide 863 pg/mL (Less than 100) H 07/04/17 14:31 - Clinical Findings Intake & Output: Intake & Output 07/11/17 07/11/17 07/11/17 07:59 15:59 23:59 Intake Total 600 / 600 720 / 720 1200 / 1200 Output Total 1900 / 1900 1800 / 1800 1000 / 1000 Balance -1300 / -1300 -1080 / -1080 200 / 200 Weight 201.4 kg - Attending Attestation - Attending Attestation I saw and evaluated this patient and my medical decision-making was reviewed with the Resident Physician. I agree with the documented findings, disposition and treatment plan as described except to the extent set forth below. We independently had [id number]-ia-[id number] contact with the patient I spent 35 minutes of Critical Care time with this patient. It involved decision making of high complexity to assess, manipulate, and support vital organ system failure and/or to prevent further life threatening deterioration of the patient's condition. The time involved in the performance of separately reportable procedures was not counted toward critical care time. Patient seen and examined at bedside Labs, radiology, chart personally reviewed. 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 To Continue BIPAP 18/ will change to AVAPS if that gives increased tidal volume . ABG looks stable . Patient has COPD but this doesnt look like COPD exacerbation . 07/11 : Repeat CXR still with left lung collapse , ultrasound of the chest didnt show any significant pocket of fluid to tap . Will keep her NPO will attempt bronchoscopy tomorrow with high flow mask as conservative measures seems not working today after percussor therapy she coughed up some will continue with BIPAP to give breaks to clear liquid diet Cards:Acute On Chronic Diastolic heart failure will diurese will change PO lopressor to IV lopressor . If the Blood pressure tolerates will start on IV cardizem FEN-GI: To give BIPAP breaks with clear liquid diet Renal: Labs and output reviewed ID: [id number] will continue broad spectrum antibiotics Vanc, Aztreonam and flagyl Heme/Onc:Labs reviewed Endo: Glucose Monitored Integ/MSK: Skin Care per routine ICU Nursing Protocol to prevent ulcers. Lines: All lines examined without evidence of infection : Dispo: Patient is critically ill high risk of worsening respiratory failure requiring intubation . CODE:Full Code
[2017-07-11 09:39] LABS: INR 1.4; Prothrombin Time 15.5 Seconds (9.4-12.1)
[2017-07-11] MEDS: Pantoprazole 40 MG VIAL IVP SCH (09:52)
[2017-07-11] MEDS: Furosemide 40 MG/4 ML VIAL IVP SCH ×2 (09:56→21:31)
[2017-07-11] MEDS: Acetylcysteine 10% 2 ML INHSOL IH SCH ×5 (11:17→23:30)
[2017-07-11] MEDS: Cefepime HCl 1,000 MG in Water for inj. (sterile) 20 ML 20 ML IVP SCH ×2 (12:34→21:26)
[2017-07-12] MEDS: *HR* Metoprolol 5 MG/5 ML VIAL IVP SCH ×5 (00:02→23:04)
[2017-07-12] MEDS: MetroNIDAZOLE 500 MG/100 ML 500 MG/100 ML BAG IVPB SCH ×4 (00:06→23:04)
[2017-07-12] MEDS: Cefepime HCl 1,000 MG in Water for inj. (sterile) 20 ML 20 ML IVP SCH ×3 (03:51→20:03)
[2017-07-12] MEDS: Ipratropium/Albuterol Neb 3 ML IH SCH ×6 (04:11→23:14)
[2017-07-12] MEDS: Acetylcysteine 10% 2 ML INHSOL IH SCH ×6 (04:11→23:15)
[2017-07-12] MEDS: *HR* Enoxaparin 40 MG/0.4 ML SYRINGE SQ SCH (05:33)
[2017-07-12] MEDS ORDERED: Ketorolac 15 MG/ML VIAL IVP ONE (05:37)
[2017-07-12 06:01] LABS: Hemoglobin 7.9 g/dL (11.5-15.4); Immature Granulocytes % 1.6 % (0-4); Nucleated Red Blood Cells 1.5 /100 WBC (0)
[2017-07-12 06:02] LABS: Basophils % 0.1 %; Hematocrit 28.6 % (35.3-44.9); Lymphocytes # 0.5 K/mcL (0.6-4.6); Lymphocytes % 6.5 %; Mean Corpuscular HGB Conc 27.6 g/dL (31.6-35.5); Mean Corpuscular Hemoglobin 24.6 pg (28.0-33.3); Mean Corpuscular Volume 89.1 fL (83.0-100.0); Mean Platelet Volume 9.9 fL (9.4-12.4); Monocytes # 0.5 K/mcL (0.0-1.3); Monocytes % 5.6 %; Neutrophils # 6.9 K/mcL (1.6-8.9); Platelet Count 340 K/mcL (140-400); Red Blood Count 3.21 M/mcL (3.82-4.97); Segmented Neutrophils % 86.2 %
[2017-07-12 06:16] LABS: Anisocytosis 2+ (Not Present)
[2017-07-12 06:17] LABS: Hypochromasia Present (Not Present); Macrocytosis Present (Not Present); Microcytosis Present (Not Present); Platelet Estimate Normal (Normal); Polychromasia 2+ (Not Present)
[2017-07-12 06:22] LABS: BUN/Creatinine Ratio 62 (6-26); Blood Urea Nitrogen 31 mg/dL (6-20); Calcium 8.8 mg/dL (8.6-10.3); Carbon Dioxide 45 mEq/L (23-29); Chloride 92 mEq/L (98-107); Glucose 209 mg/dL (70-105); Osmolality,Calculated 307 (280-300); Potassium 3.7 mEq/L (3.5-5.1); Sodium 142 mEq/L (136-145); eGFR For African Americans > 60 (> 60); eGFR For Non-African Americans > 60 (> 60)
[2017-07-12] MEDS: Furosemide 40 MG/4 ML VIAL IVP SCH ×2 (08:53→20:05)
[2017-07-12] MEDS: MethylPREDNISolone 40 MG/ML VIAL IVP SCH ×4 (08:54→20:06)
[2017-07-12] MEDS: Nicotine 14 MG PATCH.TD24 TD SCH (08:55)
[2017-07-12] MEDS ORDERED: *HR* Metoprolol 5 MG/5 ML VIAL IVP ONE (08:56)
[2017-07-12] MEDS: Insulin LISPRO 300 UNITS/3 ML VIAL SQ SCH ×4 (09:00→20:06)
[2017-07-12] MEDS: Dexmedetomidine HCl 400 MCG/100 ML MLS IVC SCH ×2 (09:04→23:18)
[2017-07-12] MEDS: Aspirin 325 MG TABLET PO SCH (09:05)
[2017-07-12] MEDS: Pantoprazole 40 MG VIAL IVP SCH (09:06)
[2017-07-12] MEDS: Nystatin POWDER 30 GM BOTTLE TP SCH ×2 (09:06→20:07)
[2017-07-12] MEDS: Diltiazem CD (24hr) 180 MG CAPSULE PO SCH (09:06)
--- NOTE | 2017-07-12 11:08 | Pulmonology Progress Note ---
<Juan Diego Moreira - Last Filed: 07/12/17 11:26> Date of Encounter: 07/12/17 Time of Encounter: 07:00 Assessment and Plan (1) Acute and chronic respiratory failure Current Visit: Yes Status: Acute Basline home 4L supplemental O2 continuously with CPAP at night. In the setting of severe pulmonary hypertension, COPD. Pulse ox reportedly in 70's at home on EMS arrival. Bronchoscopy 07/12 suctioned copious mucous secretions in left bronchi. Continue BiPap wean to venti mask and eventual nasal cannulae. Empiric antibiotics Vancomycin Flagyl Aggressive lung clearance measures: DuoNeb bronchodilator IH NAC mucolytic SoluMedrol Manual chest percussive therapy Encourage strong coughing Clear liquid diet given BiPap dependency and aspiration risk. Microbiology: Left lung BAL samples pending. Qualifiers: Respiratory failure complication: hypercapnia Qualified Code(s): J96.22 - Acute and chronic respiratory failure with hypercapnia (2) Acute on chronic diastolic CHF (congestive heart failure) Current Visit: Yes Status: Acute Echo 07/2016: LVEF 65-70% with LV diastolic dysfunction, tricuspid regurgitation. Severe pulmonary hypertension (60mmHg). Cardiomegaly on CXR. CTA BL pleural effusion with right basilar atelectasis. (3) COPD (chronic obstructive pulmonary disease) Current Visit: No Status: Acute 30 pk yr hx of smoking. Quit smoking 1 month ago. Plan as above. Qualifiers: COPD type: unspecified COPD Qualified Code(s): J44.9 - Chronic obstructive pulmonary disease, unspecified (4) Morbid obesity with BMI of 70 and over, adult Current Visit: Yes Status: Chronic Guarded prognosis if patient needs intubation; likely a difficult intubation both with patient's anatomy as well as her low pulmonary reserve. Potentially difficult CPAP weaning for extubation. Patient tolerating BiPap at this time with intermittent Venti mask. (5) Non-insulin dependent type 2 diabetes mellitus Current Visit: Yes Status: Chronic On sliding scale insulin while in the ICU. (6) Tobacco abuse Current Visit: No Status: Acute Hx 1ppd x 30yr. Reportedly quit smoking tobacco 1 month ago. Discussed with the patient the need to continue tobacco abstinence notably in the setting of her current medical condition. (7) Atrial fibrillation Current Visit: Yes Status: Chronic Hx chronic atrial fibrillation. Currently NSR. Home meds: metoprolol 50mg PO BID, cardizem CD 360mg PO daily Cover with lopressor 5mg IV. Qualifiers: Atrial fibrillation type: chronic Qualified Code(s): I48.2 - Chronic atrial fibrillation (8) DVT prophylaxis Current Visit: Yes Status: Acute Lovenox Subjective Principal diagnosis: Acute on chronic respiratory failure Interval history: Hospital day 7/ICU day 3 Patient is incrementally improving. Now tolerates 1-2 hrs on Venti mask. Patient was too unstable for bronchoscopy yesterday. Awake bronchoscopy today showed copious mucous plugging which were irrigated and suctioned. Pateint placed on BiPap post-bronchoscopy for lung recruitment. As soon as the bronchoscopy was complete, patient was requesting food. She has a diet of clear liquids. We again discussed lung protective measures in the context of her need for BiPap and likely contribution of eating solids while on BiPap contributing to her current respiratory status. Continue empiric antibiotic coverage. Objective PUL Vital signs: Last Vital Signs Temp 98.1 F 07/12/17 08:00 Pulse 78 07/12/17 10:11 Resp 25 07/12/17 10:11 BP 133/90 07/12/17 10:11 Pulse Ox 97 07/12/17 10:11 General appearance: no acute distress, alert ENT: oropharynx moist Neck: supple Effort: normal, other (exam performed pre-bronchoscopy) Auscultation: bilateral: diminished breath sounds, wheezes (faint on left.), other (improved though diminished aeration on left.) Cardiovascular: regular rate and rhythm Gastrointestinal: normoactive bowel sounds, soft, non-tender, non-distended Integumentary: normal Extremities: no cyanosis, no edema, no clubbing, pink and warm, pulses normal, no ischemia or petechiae Musculoskeletal: no deformities normal mental status, non-focal exam, pupils equal and round mood appropriate Results - Laboratory Findings CBC and BMP: 07/12/17 05:45 07/12/17 05:45 ABG ABG pH 7.43 pH Units (7.32-7.45) 07/10/17 16:48 ABG pCO2 72 mmHg (35-45) H* 07/10/17 16:48 ABG pO2 79 mmHg (85-104) L 07/10/17 16:48 ABG O2 Saturation 95 % (95-98) 07/10/17 16:48 PT/INR, D-dimer PT 15.5 Seconds (9.4-12.1) H 07/11/17 09:10 Abnormal lab findings: Abnormal lab results RBC 3.21 M/mcL (3.82-4.97) L 07/12/17 05:45 Hgb 7.9 g/dL (11.5-15.4) L 07/12/17 05:45 Hct 28.6 % (35.3-44.9) L 07/12/17 05:45 MCH 24.6 pg (28.0-33.3) L 07/12/17 05:45 MCHC 27.6 g/dL (31.6-35.5) L 07/12/17 05:45 RDW 19.0 % (11.5-14.5) H 07/12/17 05:45 Lymphocytes # 0.5 K/mcL (0.6-4.6) L 07/12/17 05:45 Nucleated RBCs/100 WBC 1.5 /100 WBC (0) H 07/12/17 05:45 Large Platelets Present (Not Present) A 07/08/17 05:02 Polychromasia 2+ (Not Present) A 07/12/17 05:45 Hypochromasia Present (Not Present) A 07/12/17 05:45 Poikilocytosis 1+ (Not Present) A 07/07/17 04:22 Anisocytosis 2+ (Not Present) A 07/12/17 05:45 Microcytosis Present (Not Present) A 07/12/17 05:45 Macrocytosis Present (Not Present) A 07/12/17 05:45 Stomatocytes 1+ (Not Present) A 07/08/17 05:02 PT 15.5 Seconds (9.4-12.1) H 07/11/17 09:10 ABG pCO2 72 mmHg (35-45) H* 07/10/17 16:48 ABG pO2 79 mmHg (85-104) L 07/10/17 16:48 ABG HCO3 47 mEq/L (21-27) H 07/10/17 16:48 ABG Total CO2 49 mEq/L (20-26) H 07/10/17 16:48 ABG Base Excess 20 mEq/L (-2 to 3) H 07/10/17 16:48 VBG pH 7.17 pH Units (7.32-7.42) L* 07/04/17 17:37 VBG pCO2 119 mmHg (41-51) H* 07/04/17 17:37 VBG pO2 100 mmHg (25-50) H 07/04/17 17:37 VBG HCO3 43 mEq/L (21-27) H 07/04/17 17:37 Chloride 92 mEq/L (98-107) L 07/12/17 05:45 Carbon Dioxide 45 mEq/L (23-29) H* 07/12/17 05:45 BUN 31 mg/dL (6-20) H 07/12/17 05:45 Creatinine 0.50 mg/dL (0.60-1.20) L 07/12/17 05:45 BUN/Creatinine Ratio 62 (6-26) H 07/12/17 05:45 Glucose 209 mg/dL (70-105) H 07/12/17 05:45 POC Glucose 227 (58-89) H 07/11/17 19:13 Calculated Osmolality 307 (280-300) H 07/12/17 05:45 B-Natriuretic Peptide 863 pg/mL (Less than 100) H 07/04/17 14:31 - Microbiology Findings Microbiology Findings: Microbiology, Last 48 Hours 07/10/17 16:31 Blood Culture - Preliminary Peripheral Venipuncture No growth. 07/10/17 16:31 Blood Culture - Preliminary Peripheral Venipuncture No growth. - Clinical Findings Intake & Output: Intake & Output 07/11/17 07/12/17 07/12/17 23:59 07:59 15:59 Intake Total 1220 / 1220 340 / 340 Output Total 1000 / 1000 2400 / 2400 Balance 220 / 220 -2060 / -2060 Weight 205 kg Consult Discharge Plan - Plan Instructions: Heart Failure (DC) Additional Instructions: Decrease fluid intake. Continue with Lasix 40 mg 3 times a day. Prednisone taper as follows: 40 mg daily for 4 days, 30 mg for 4 days, 20 mg for 4 days and 10 mg for 4 days. Complete 2 more days of cefdinir Referrals: Aleksey Huggins DO [Primary Care Provider] - Prescriptions: Cefdinir [Omnicef] 300 mg PO BID #4 capsule predniSONE [PredniSONE] 10 mg PO DAILY 16 Days tablet <Smita Jensen S - Last Filed: 07/12/17 21:31> Date of Encounter: 07/12/17 Objective PUL Vital signs: Last Vital Signs Temp 98.1 F 07/12/17 20:08 Pulse 93 07/12/17 20:00 Resp 26 07/12/17 20:00 BP 134/75 07/12/17 20:00 Pulse Ox 91 07/12/17 20:00 Results - Laboratory Findings CBC and BMP: 07/12/17 05:45 07/12/17 05:45 ABG ABG pH 7.43 pH Units (7.32-7.45) 07/10/17 16:48 ABG pCO2 72 mmHg (35-45) H* 07/10/17 16:48 ABG pO2 79 mmHg (85-104) L 07/10/17 16:48 ABG O2 Saturation 95 % (95-98) 07/10/17 16:48 PT/INR, D-dimer PT 15.5 Seconds (9.4-12.1) H 07/11/17 09:10 Abnormal lab findings: Abnormal lab results RBC 3.21 M/mcL (3.82-4.97) L 07/12/17 05:45 Hgb 7.9 g/dL (11.5-15.4) L 07/12/17 05:45 Hct 28.6 % (35.3-44.9) L 07/12/17 05:45 MCH 24.6 pg (28.0-33.3) L 07/12/17 05:45 MCHC 27.6 g/dL (31.6-35.5) L 07/12/17 05:45 RDW 19.0 % (11.5-14.5) H 07/12/17 05:45 Lymphocytes # 0.5 K/mcL (0.6-4.6) L 07/12/17 05:45 Nucleated RBCs/100 WBC 1.5 /100 WBC (0) H 07/12/17 05:45 Large Platelets Present (Not Present) A 07/08/17 05:02 Polychromasia 2+ (Not Present) A 07/12/17 05:45 Hypochromasia Present (Not Present) A 07/12/17 05:45 Poikilocytosis 1+ (Not Present) A 07/07/17 04:22 Anisocytosis 2+ (Not Present) A 07/12/17 05:45 Microcytosis Present (Not Present) A 07/12/17 05:45 Macrocytosis Present (Not Present) A 07/12/17 05:45 Stomatocytes 1+ (Not Present) A 07/08/17 05:02 PT 15.5 Seconds (9.4-12.1) H 07/11/17 09:10 ABG pCO2 72 mmHg (35-45) H* 07/10/17 16:48 ABG pO2 79 mmHg (85-104) L 07/10/17 16:48 ABG HCO3 47 mEq/L (21-27) H 07/10/17 16:48 ABG Total CO2 49 mEq/L (20-26) H 07/10/17 16:48 ABG Base Excess 20 mEq/L (-2 to 3) H 07/10/17 16:48 VBG pH 7.46 pH Units (7.32-7.42) H 07/12/17 17:59 VBG pCO2 70 mmHg (41-51) H* 07/12/17 17:59 VBG HCO3 50 mEq/L (21-27) H 07/12/17 17:59 Chloride 92 mEq/L (98-107) L 07/12/17 05:45 Carbon Dioxide 45 mEq/L (23-29) H* 07/12/17 05:45 BUN 31 mg/dL (6-20) H 07/12/17 05:45 Creatinine 0.50 mg/dL (0.60-1.20) L 07/12/17 05:45 BUN/Creatinine Ratio 62 (6-26) H 07/12/17 05:45 Glucose 209 mg/dL (70-105) H 07/12/17 05:45 POC Glucose 227 (58-89) H 07/11/17 19:13 Calculated Osmolality 307 (280-300) H 07/12/17 05:45 B-Natriuretic Peptide 863 pg/mL (Less than 100) H 07/04/17 14:31 Pleural Appearance Bloody (Clear) A 07/12/17 08:47 - Microbiology Findings Microbiology Findings: Microbiology, Last 48 Hours 07/12/17 08:47 Gram Stain - Final Lung - Left 07/10/17 16:31 Blood Culture - Preliminary Peripheral Venipuncture No growth. 07/10/17 16:31 Blood Culture - Preliminary Peripheral Venipuncture No growth. - Clinical Findings Intake & Output: Intake & Output 07/12/17 07/12/17 07/12/17 07:59 15:59 23:59 Intake Total 360 / 360 720 / 720 600 / 600 Output Total 2400 / 2400 1300 / 1300 225 / 225 Balance -2040 / -2040 -580 / -580 375 / 375 Weight 205 kg - Attending Attestation - Attending Attestation I saw and evaluated this patient and my medical decision-making was reviewed with the Resident Physician. I agree with the documented findings, disposition and treatment plan as described except to the extent set forth below. We independently had [id number] contact with the patient I spent 32 minutes of Critical Care time with this patient. It involved decision making of high complexity to assess, manipulate, and support vital organ system failure and/or to prevent further life threatening deterioration of the patient's condition. The time involved in the performance of separately reportable procedures was not counted toward critical care time. Patient seen and examined at bedside Labs, radiology, chart personally reviewed. WOOD CALKER:Patient is conscious oriented x 3 Pulm:Patient V/Q mismatch is due to Left lung collapse with little bit of aeration of left upper lung looks like she is aspirating will need bronchoscopy at some time with patient is BIPAP dependent will hold off Bronchoscopy for now will try conservative measures Q 4 PERCUSSIVE therapy for 48 hrs when she gets breaks of BIPAP will encourage incentive Spirometry , patient has fluid overlaod with bilateral pleural effusion will diuresis as tolerated will consult IR to tap for pleural fluid tomorrow . To Continue BIPAP 24/04 will change to AVAPS if that gives increased tidal volume . ABG looks stable . Patient has COPD but this doesnt look like COPD exacerbation . 07/11 : Repeat CXR still with left lung collapse , ultrasound of the chest didnt show any significant pocket of fluid to tap . Will keep her NPO will attempt bronchoscopy tomorrow with high flow mask as conservative measures seems not working today after percussor therapy she coughed up some will continue with BIPAP to give breaks to clear liquid diet 07/12 Did bronchoscopy under local anaesthesia suctioned mucus plug from the left main stem bronchus and mucus plug from EMILIA bronchus and LLL bronchus put on AVAPS with EPAP of 12 after 4 hrs repeat CXR didnt show any improvement i increased the EPAP to 16 cm H2O and IPAP to 24 cm H2O . Cards:Acute On Chronic Diastolic heart failure to continue diuresis FEN-GI: To give BIPAP breaks with clear liquid diet if tolerated Renal: Labs and output reviewed ID: [id number] will continue broad spectrum antibiotics Vanc, Aztreonam and flagyl Heme/Onc:Labs reviewed Endo: Glucose Monitored Integ/MSK: Skin Care per routine ICU Nursing Protocol to prevent ulcers. Lines: All lines examined without evidence of infection : Dispo: Patient is critically ill high risk of worsening respiratory failure requiring intubation . CODE:Full Code
[2017-07-12] MEDS ORDERED: Furosemide 40 MG/4 ML VIAL IVP SCH (11:15)
[2017-07-12 18:02] LABS: Blood Gas PEEP 16 cm H2O; Blood Gas Pressure Support 24 cm H2O; VBG HCO3 50 mEq/L (21-27); VBG PCO2 70 mmHg (41-51); VBG PH 7.46 pH Units (7.32-7.42); VBG PO2 32 mmHg (25-50)
[2017-07-12] MEDS: Acetaminophen 325 MG TABLET PO PRN (20:55)
[2017-07-12 21:00] LABS: Appearance of Pleural Fl Bloody (Clear)
[2017-07-13] MEDS: Dexmedetomidine HCl 400 MCG/100 ML MLS IVC SCH ×3 (00:05→23:28)
[2017-07-13] MEDS: Cefepime HCl 1,000 MG in Water for inj. (sterile) 20 ML 20 ML IVP SCH ×3 (03:08→19:58)
[2017-07-13] MEDS: Acetylcysteine 10% 2 ML INHSOL IH SCH ×6 (04:02→23:18)
[2017-07-13] MEDS: Ipratropium/Albuterol Neb 3 ML IH SCH ×6 (04:02→23:18)
[2017-07-13 04:36] LABS: ABG Base Excess 19 mEq/L (-2 to 3); ABG HCO3 45 mEq/L (21-27); ABG Oxygen Saturation 95 % (95-98); ABG PCO2 58 mmHg (35-45); ABG PH 7.49 pH Units (7.32-7.45); ABG PO2 71 mmHg (85-104); ABG TCO2 46 mEq/L (20-26)
[2017-07-13] MEDS: *HR* Metoprolol 5 MG/5 ML VIAL IVP SCH ×4 (05:03→23:30)
[2017-07-13] MEDS: *HR* Enoxaparin 40 MG/0.4 ML SYRINGE SQ SCH (05:03)
[2017-07-13 05:22] LABS: Basophils % 0.1 %; Immature Granulocytes % 1.3 % (0-4)
[2017-07-13 05:24] LABS: Hematocrit 28.9 % (35.3-44.9); Hemoglobin 8.1 g/dL (11.5-15.4); Lymphocytes # 0.4 K/mcL (0.6-4.6); Lymphocytes % 4.3 %; Mean Corpuscular Hemoglobin 24.6 pg (28.0-33.3); Mean Corpuscular Volume 87.8 fL (83.0-100.0); Monocytes # 0.4 K/mcL (0.0-1.3); Monocytes % 3.9 %; Nucleated Red Blood Cells 1.1 /100 WBC (0); Platelet Count 358 K/mcL (140-400); Red Blood Count 3.29 M/mcL (3.82-4.97); Red Cell Distribution Width 19.3 % (11.5-14.5); Segmented Neutrophils % 90.4 %
[2017-07-13 05:30] LABS: BUN/Creatinine Ratio 56 (6-26); Blood Urea Nitrogen 29 mg/dL (6-20); Calcium 8.7 mg/dL (8.6-10.3); Carbon Dioxide 44 mEq/L (23-29); Chloride 91 mEq/L (98-107); Glucose 209 mg/dL (70-105); Osmolality,Calculated 304 (280-300); Potassium 3.5 mEq/L (3.5-5.1); Sodium 141 mEq/L (136-145); eGFR For African Americans > 60 (> 60); eGFR For Non-African Americans > 60 (> 60)
[2017-07-13 05:31] LABS: Neutrophils # 8.8 K/mcL (1.6-8.9)
[2017-07-13 06:04] LABS: Hypochromasia Present (Not Present); Macrocytosis Present (Not Present); Polychromasia 1+ (Not Present)
[2017-07-13 06:05] LABS: Anisocytosis 1+ (Not Present)
[2017-07-13 06:06] LABS: Spherocytes 1+ (Not Present)
[2017-07-13 06:09] LABS: Platelet Estimate Normal (Normal); Stomatocytes 1+ (Not Present)
[2017-07-13] MEDS: Diltiazem CD (24hr) 180 MG CAPSULE PO SCH (07:56)
[2017-07-13] MEDS: Aspirin 325 MG TABLET PO SCH (07:56)
[2017-07-13] MEDS: MethylPREDNISolone 40 MG/ML VIAL IVP SCH ×5 (07:57→19:59)
[2017-07-13] MEDS: Pantoprazole 40 MG VIAL IVP SCH (07:57)
[2017-07-13] MEDS: Furosemide 40 MG/4 ML VIAL IVP SCH ×2 (07:57→19:59)
[2017-07-13] MEDS: MetroNIDAZOLE 500 MG/100 ML 500 MG/100 ML BAG IVPB SCH ×3 (07:58→23:30)
[2017-07-13] MEDS: Insulin LISPRO 300 UNITS/3 ML VIAL SQ SCH ×5 (07:58→20:16)
[2017-07-13] MEDS: Nicotine 14 MG PATCH.TD24 TD SCH (08:01)
[2017-07-13] MEDS: Nystatin POWDER 30 GM BOTTLE TP SCH ×2 (08:41→23:28)
--- NOTE | 2017-07-13 08:46 | Pulmonology Progress Note ---
<Juan Diego Moreira - Last Filed: 07/13/17 12:02> Date of Encounter: 07/13/17 Time of Encounter: 07:00 Assessment and Plan (1) Acute and chronic respiratory failure Current Visit: Yes Status: Acute Basline home 4L supplemental O2 continuously with CPAP at night. In the setting of severe pulmonary hypertension, COPD. Pulse ox reportedly in 70's at home on EMS arrival. Bronchoscopy 07/12 suctioned copious mucous secretions in left bronchi. CXR not improved after bronchoscopy and multiple hours on BiPap for lung recruitment. Continue BiPap wean to venti mask and eventual nasal cannulae. Empiric antibiotics Vancomycin Flagyl Cefepime Aggressive lung clearance measures: DuoNeb bronchodilator IH NAC mucolytic SoluMedrol Manual chest percussive therapy Encourage strong coughing Continue gentle diuresis to minimize pulmonary edema. Clear liquid diet given BiPap dependency and aspiration risk. Electrolyte protocol. Diet: clear liquid Microbiology: Left lung BAL samples pending. Continue discussions and await patient's decision regarding intubation with potential for trach. Qualifiers: Respiratory failure complication: hypercapnia Qualified Code(s): J96.22 - Acute and chronic respiratory failure with hypercapnia (2) Acute on chronic diastolic CHF (congestive heart failure) Current Visit: Yes Status: Acute Echo 07/2016: LVEF 65-70% with LV diastolic dysfunction, tricuspid regurgitation. Severe pulmonary hypertension (60mmHg). Cardiomegaly on CXR. CTA BL pleural effusion with right basilar atelectasis. (3) COPD (chronic obstructive pulmonary disease) Current Visit: No Status: Acute 30 pk yr hx of smoking. Quit smoking 1 month ago. Plan as above. Qualifiers: COPD type: unspecified COPD Qualified Code(s): J44.9 - Chronic obstructive pulmonary disease, unspecified (4) Morbid obesity with BMI of 70 and over, adult Current Visit: Yes Status: Chronic Guarded prognosis if patient needs intubation; likely a difficult intubation both with patient's anatomy as well as her low pulmonary reserve. Potentially difficult CPAP weaning for extubation. Patient tolerating BiPap at this time with intermittent Venti mask. (5) Non-insulin dependent type 2 diabetes mellitus Current Visit: Yes Status: Chronic On sliding scale insulin while in the ICU. (6) Tobacco abuse Current Visit: No Status: Acute Hx 1ppd x 30yr. Reportedly quit smoking tobacco 1 month ago. Discussed with the patient the need to continue tobacco abstinence notably in the setting of her current medical condition. (7) Atrial fibrillation Current Visit: Yes Status: Chronic Hx chronic atrial fibrillation. Currently NSR. Home meds: metoprolol 50mg PO BID, cardizem CD 360mg PO daily Cover with lopressor 5mg IV. Qualifiers: Atrial fibrillation type: chronic Qualified Code(s): I48.2 - Chronic atrial fibrillation (8) DVT prophylaxis Current Visit: Yes Status: Acute Lovenox Subjective Principal diagnosis: Acute on chronic respiratory failure Interval history: Hospital day 8/ICU day 4 No acute events overnight. Patient still BiPap dependent. When on venti mask, she slowly desaturates. She successfully underwent awake bronchoscopy yesterday morning. After clearance of mucus from the left mainstem bronchus and 6hrs of BiPap, her chest x-ray and symptoms did not improve. Suspect the patient may need greater control of ventilatory pressures with intubation. Patient has minimal pulmonary reserve making intubation in the OR the optimal choice. Concern for difficult extubation. Have discussed with patient in detail her current failure on BiPap, her likely need for intubation, the high risk of failure to extubate, and the potential for eventual trach. She is considering her options and will let us know her decision. She remains full code. Objective PUL Vital signs: Last Vital Signs Temp 98.3 F 07/13/17 07:23 Pulse 95 07/13/17 08:00 Resp 28 07/13/17 08:00 BP 138/95 07/13/17 08:00 Pulse Ox 92 07/13/17 08:00 General appearance: no acute distress, alert Eyes: nonicteric ENT: oropharynx moist Neck: supple Effort: normal Auscultation: bilateral: diminished breath sounds Cardiovascular: regular rate and rhythm Gastrointestinal: normoactive bowel sounds Integumentary: normal Extremities: no cyanosis, no edema, no clubbing, pink and warm, pulses normal, no ischemia or petechiae Musculoskeletal: no deformities normal mental status, non-focal exam, pupils equal and round, motor strength normal and symmetric mood appropriate Results - Laboratory Findings CBC and BMP: 07/13/17 04:00 07/13/17 04:00 ABG ABG pH 7.49 pH Units (7.32-7.45) H 07/13/17 04:33 ABG pCO2 58 mmHg (35-45) H 07/13/17 04:33 ABG pO2 71 mmHg (85-104) L 07/13/17 04:33 ABG O2 Saturation 95 % (95-98) 07/13/17 04:33 PT/INR, D-dimer PT 15.5 Seconds (9.4-12.1) H 07/11/17 09:10 Abnormal lab findings: Abnormal lab results RBC 3.29 M/mcL (3.82-4.97) L 07/13/17 04:00 Hgb 8.1 g/dL (11.5-15.4) L 07/13/17 04:00 Hct 28.9 % (35.3-44.9) L 07/13/17 04:00 MCH 24.6 pg (28.0-33.3) L 07/13/17 04:00 MCHC 28.0 g/dL (31.6-35.5) L 07/13/17 04:00 RDW 19.3 % (11.5-14.5) H 07/13/17 04:00 Lymphocytes # 0.4 K/mcL (0.6-4.6) L 07/13/17 04:00 Nucleated RBCs/100 WBC 1.1 /100 WBC (0) H 07/13/17 04:00 Large Platelets Present (Not Present) A 07/08/17 05:02 Polychromasia 1+ (Not Present) A 07/13/17 04:00 Hypochromasia Present (Not Present) A 07/13/17 04:00 Poikilocytosis 1+ (Not Present) A 07/07/17 04:22 Anisocytosis 1+ (Not Present) A 07/13/17 04:00 Microcytosis Present (Not Present) A 07/12/17 05:45 Macrocytosis Present (Not Present) A 07/13/17 04:00 Spherocytes 1+ (Not Present) A 07/13/17 04:00 Stomatocytes 1+ (Not Present) A 07/13/17 04:00 PT 15.5 Seconds (9.4-12.1) H 07/11/17 09:10 ABG pH 7.49 pH Units (7.32-7.45) H 07/13/17 04:33 ABG pCO2 58 mmHg (35-45) H 07/13/17 04:33 ABG pO2 71 mmHg (85-104) L 07/13/17 04:33 ABG HCO3 45 mEq/L (21-27) H 07/13/17 04:33 ABG Total CO2 46 mEq/L (20-26) H 07/13/17 04:33 ABG Base Excess 19 mEq/L (-2 to 3) H 07/13/17 04:33 VBG pH 7.46 pH Units (7.32-7.42) H 07/12/17 17:59 VBG pCO2 70 mmHg (41-51) H* 07/12/17 17:59 VBG HCO3 50 mEq/L (21-27) H 07/12/17 17:59 Chloride 91 mEq/L (98-107) L 07/13/17 04:00 Carbon Dioxide 44 mEq/L (23-29) H* 07/13/17 04:00 BUN 29 mg/dL (6-20) H 07/13/17 04:00 Creatinine 0.52 mg/dL (0.60-1.20) L 07/13/17 04:00 BUN/Creatinine Ratio 56 (6-26) H 07/13/17 04:00 Glucose 209 mg/dL (70-105) H 07/13/17 04:00 POC Glucose 240 (58-89) H 07/12/17 19:10 Calculated Osmolality 304 (280-300) H 07/13/17 04:00 B-Natriuretic Peptide 863 pg/mL (Less than 100) H 07/04/17 14:31 Pleural Appearance Bloody (Clear) A 07/12/17 08:47 - Microbiology Findings Microbiology Findings: Microbiology, Last 48 Hours 07/12/17 08:47 Gram Stain - Final Lung - Left 07/10/17 16:31 Blood Culture - Preliminary Peripheral Venipuncture No growth. 07/10/17 16:31 Blood Culture - Preliminary Peripheral Venipuncture No growth. - Clinical Findings Intake & Output: Intake & Output 07/12/17 07/13/17 07/13/17 23:59 07:59 15:59 Intake Total 1130 / 1130 420 / 420 Output Total 2325 / 2325 600 / 600 Balance -1195 / -1195 -180 / -180 Weight 201.8 kg Consult Discharge Plan - Plan Instructions: Heart Failure (DC) Additional Instructions: Decrease fluid intake. Continue with Lasix 40 mg 3 times a day. Prednisone taper as follows: 40 mg daily for 4 days, 30 mg for 4 days, 20 mg for 4 days and 10 mg for 4 days. Complete 2 more days of cefdinir Referrals: Aleksey Huggins DO [Primary Care Provider] - Prescriptions: Cefdinir [Omnicef] 300 mg PO BID #4 capsule predniSONE [PredniSONE] 10 mg PO DAILY 16 Days tablet <Smita Jensen S - Last Filed: 07/13/17 22:34> Date of Encounter: 07/13/17 Objective PUL Vital signs: Last Vital Signs Temp 98.8 F 07/13/17 21:15 Pulse 92 07/13/17 21:44 Resp 34 07/13/17 21:44 BP 165/104 07/13/17 21:44 Pulse Ox 97 07/13/17 21:44 Results - Laboratory Findings CBC and BMP: 07/13/17 04:00 07/13/17 21:00 ABG ABG pH 7.49 pH Units (7.32-7.45) H 07/13/17 04:33 ABG pCO2 58 mmHg (35-45) H 07/13/17 04:33 ABG pO2 71 mmHg (85-104) L 07/13/17 04:33 ABG O2 Saturation 95 % (95-98) 07/13/17 04:33 PT/INR, D-dimer PT 15.5 Seconds (9.4-12.1) H 07/11/17 09:10 Abnormal lab findings: Abnormal lab results RBC 3.29 M/mcL (3.82-4.97) L 07/13/17 04:00 Hgb 8.1 g/dL (11.5-15.4) L 07/13/17 04:00 Hct 28.9 % (35.3-44.9) L 07/13/17 04:00 MCH 24.6 pg (28.0-33.3) L 07/13/17 04:00 MCHC 28.0 g/dL (31.6-35.5) L 07/13/17 04:00 RDW 19.3 % (11.5-14.5) H 07/13/17 04:00 Lymphocytes # 0.4 K/mcL (0.6-4.6) L 07/13/17 04:00 Nucleated RBCs/100 WBC 1.1 /100 WBC (0) H 07/13/17 04:00 Large Platelets Present (Not Present) A 07/08/17 05:02 Polychromasia 1+ (Not Present) A 07/13/17 04:00 Hypochromasia Present (Not Present) A 07/13/17 04:00 Poikilocytosis 1+ (Not Present) A 07/07/17 04:22 Anisocytosis 1+ (Not Present) A 07/13/17 04:00 Microcytosis Present (Not Present) A 07/12/17 05:45 Macrocytosis Present (Not Present) A 07/13/17 04:00 Spherocytes 1+ (Not Present) A 07/13/17 04:00 Stomatocytes 1+ (Not Present) A 07/13/17 04:00 PT 15.5 Seconds (9.4-12.1) H 07/11/17 09:10 ABG pH 7.49 pH Units (7.32-7.45) H 07/13/17 04:33 ABG pCO2 58 mmHg (35-45) H 07/13/17 04:33 ABG pO2 71 mmHg (85-104) L 07/13/17 04:33 ABG HCO3 45 mEq/L (21-27) H 07/13/17 04:33 ABG Total CO2 46 mEq/L (20-26) H 07/13/17 04:33 ABG Base Excess 19 mEq/L (-2 to 3) H 07/13/17 04:33 VBG pH 7.45 pH Units (7.32-7.42) H 07/13/17 22:07 VBG pCO2 71 mmHg (41-51) H* 07/13/17 22:07 VBG pO2 77 mmHg (25-50) H 07/13/17 22:07 VBG HCO3 49 mEq/L (21-27) H 07/13/17 22:07 Chloride 91 mEq/L (98-107) L 07/13/17 04:00 Carbon Dioxide 44 mEq/L (23-29) H* 07/13/17 04:00 BUN 29 mg/dL (6-20) H 07/13/17 04:00 Creatinine 0.52 mg/dL (0.60-1.20) L 07/13/17 04:00 BUN/Creatinine Ratio 56 (6-26) H 07/13/17 04:00 Glucose 209 mg/dL (70-105) H 07/13/17 04:00 POC Glucose 240 (58-89) H 07/12/17 19:10 Calculated Osmolality 304 (280-300) H 07/13/17 04:00 Venous Ioniz Calcium 0.98 mmol/L (1.15-1.35) L 07/13/17 22:07 B-Natriuretic Peptide 863 pg/mL (Less than 100) H 07/04/17 14:31 Pleural Appearance Bloody (Clear) A 07/12/17 08:47 - Microbiology Findings Microbiology Findings: Microbiology, Last 48 Hours 07/12/17 08:47 Acid Fast Stain - Final Other-Specify in Comments 07/12/17 08:47 Gram Stain - Final Lung - Left Respiratory Culture - Preliminary Gram Positive Rods 07/10/17 16:31 Blood Culture - Preliminary Peripheral Venipuncture No growth. 07/10/17 16:31 Blood Culture - Preliminary Peripheral Venipuncture No growth. - Clinical Findings Intake & Output: Intake & Output 07/13/17 07/13/17 07/13/17 07:59 15:59 23:59 Intake Total 420 / 420 790 / 790 620 / 620 Output Total 600 / 600 3550 / 3550 275 / 275 Balance -180 / -180 -2760 / -2760 345 / 345 - Attending Attestation - Attending Attestation I saw and evaluated this patient and my medical decision-making was reviewed with the Resident Physician. I agree with the documented findings, disposition and treatment plan as described except to the extent set forth below. We independently had [id number] contact with the patient I spent 32 minutes of Critical Care time with this patient. It involved decision making of high complexity to assess, manipulate, and support vital organ system failure and/or to prevent further life threatening deterioration of the patient's condition. The time involved in the performance of separately reportable procedures was not counted toward critical care time. Patient seen and examined at bedside Labs, radiology, chart personally reviewed. [employer] CIRCULAR:Patient is conscious oriented x 3 Pulm:Patient V/Q mismatch is due to Left lung collapse with little bit of aeration of left upper lung looks like she is aspirating will need bronchoscopy at some time with patient is BIPAP dependent will hold off Bronchoscopy for now will try conservative measures Q 4 PERCUSSIVE therapy for 48 hrs when she gets breaks of BIPAP will encourage incentive Spirometry , patient has fluid overlaod with bilateral pleural effusion will diuresis as tolerated will consult IR to tap for pleural fluid tomorrow . To Continue BIPAP 18/12 will change to AVAPS if that gives increased tidal volume . ABG looks stable . Patient has COPD but this doesnt look like COPD exacerbation . 07/11 : Repeat CXR still with left lung collapse , ultrasound of the chest didnt show any significant pocket of fluid to tap . Will keep her NPO will attempt bronchoscopy tomorrow with high flow mask as conservative measures seems not working today after percussor therapy she coughed up some will continue with BIPAP to give breaks to clear liquid diet 07/12 Did bronchoscopy under local anaesthesia suctioned mucus plug from the left main stem bronchus and mucus plug from EMILIA bronchus and LLL bronchus put on AVAPS with EPAP of 12 after 4 hrs repeat CXR didnt show any improvement i increased the EPAP to 16 cm H2O and IPAP to 24 cm H2O . 3 not much in CXR it looks like it might getting into chronic collapse will diurese the the better lung will continue EPAP of 16 with IPAP of 24 will shift her position to right side to reduce the Right to left shunt will give breaks for clear liquid diet . If patient needs intubation will need in an controlled environment . Will continue conservative management will hold off repeat bronchoscopy . Cards:Acute On Chronic Diastolic heart failure to continue diuresis FEN-GI: To give BIPAP breaks with clear liquid diet if tolerated Renal: Labs and output reviewed ID: [id number] will continue broad spectrum antibiotics Vanc, Aztreonam and flagyl Heme/Onc:Labs reviewed Endo: Glucose Monitored Integ/MSK: Skin Care per routine ICU Nursing Protocol to prevent ulcers. Lines: All lines examined without evidence of infection : Dispo: Patient is critically ill high risk of worsening respiratory failure requiring intubation . CODE:Full Code
[2017-07-13] MEDS ORDERED: Potassium Phosphate 44 MEQ in 0.9 % Sodium Chloride 250 ML IVPB PRN (10:55)
[2017-07-13] MEDS ORDERED: Furosemide 40 MG/4 ML VIAL IVP ONE (10:55)
[2017-07-13 12:44] LABS: VBG Ionized Calcium 0.97 mmol/L (1.15-1.35)
[2017-07-13 13:09] LABS: Magnesium 1.8 mg/dL (1.6-2.6); Phosphorous 3.9 mg/dL (2.7-4.5)
[2017-07-13] MEDS ORDERED: Potassium Chloride Elixir 20 MEQ/15 ML UDC PO ONE (14:50)
[2017-07-13 21:55] LABS: Potassium 3.8 mEq/L (3.5-5.1)
[2017-07-13 22:18] LABS: VBG HCO3 49 mEq/L (21-27); VBG Ionized Calcium 0.98 mmol/L (1.15-1.35); VBG PCO2 71 mmHg (41-51); VBG PH 7.45 pH Units (7.32-7.42); VBG PO2 77 mmHg (25-50)
[2017-07-13] MEDS: Acetaminophen 325 MG TABLET PO PRN (23:45)
[2017-07-14] MEDS: Cefepime HCl 1,000 MG in Water for inj. (sterile) 20 ML 20 ML IVP SCH ×3 (03:30→20:08)
[2017-07-14] MEDS: Acetylcysteine 10% 2 ML INHSOL IH SCH ×6 (04:08→23:41)
[2017-07-14] MEDS: Ipratropium/Albuterol Neb 3 ML IH SCH ×6 (04:08→23:41)
[2017-07-14 04:57] LABS: VBG Ionized Calcium 1.01 mmol/L (1.15-1.35)
[2017-07-14] MEDS: *HR* Enoxaparin 40 MG/0.4 ML SYRINGE SQ SCH (05:09)
[2017-07-14] MEDS: *HR* Metoprolol 5 MG/5 ML VIAL IVP SCH ×3 (05:09→18:20)
[2017-07-14 05:15] LABS: BUN/Creatinine Ratio 49 (6-26); Blood Urea Nitrogen 25 mg/dL (6-20); Calcium 8.6 mg/dL (8.6-10.3); Carbon Dioxide 45 mEq/L (23-29); Chloride 93 mEq/L (98-107); Glucose 190 mg/dL (70-105); Osmolality,Calculated 297 (280-300); Potassium 3.6 mEq/L (3.5-5.1); Sodium 139 mEq/L (136-145); eGFR For African Americans > 60 (> 60); eGFR For Non-African Americans > 60 (> 60)
[2017-07-14] MEDS: Nicotine 14 MG PATCH.TD24 TD SCH (07:51)
[2017-07-14] MEDS: Pantoprazole 40 MG VIAL IVP SCH (07:52)
[2017-07-14] MEDS: MetroNIDAZOLE 500 MG/100 ML 500 MG/100 ML BAG IVPB SCH ×2 (07:52→16:23)
[2017-07-14] MEDS: MethylPREDNISolone 40 MG/ML VIAL IVP SCH ×4 (07:52→20:08)
[2017-07-14] MEDS: Furosemide 40 MG/4 ML VIAL IVP SCH ×2 (07:52→20:09)
[2017-07-14] MEDS: Insulin LISPRO 300 UNITS/3 ML VIAL SQ SCH ×4 (07:56→20:09)
[2017-07-14] MEDS: Nystatin POWDER 30 GM BOTTLE TP SCH ×2 (08:02→20:10)
--- NOTE | 2017-07-14 09:49 | Pulmonology Progress Note ---
<Juan Diego Moreira - Last Filed: 07/14/17 12:26> Date of Encounter: 07/14/17 Time of Encounter: 07:30 Assessment and Plan (1) Acute and chronic respiratory failure Current Visit: Yes Status: Acute Basline home 4L supplemental O2 continuously with CPAP at night. In the setting of severe pulmonary hypertension, COPD. Pulse ox reportedly in 70's at home on EMS arrival. Bronchoscopy 07/12 suctioned copious mucous secretions in left bronchi. CXR not improved after bronchoscopy and multiple hours on BiPap for lung recruitment. Continue BiPap wean to venti mask and eventual nasal cannulae. Empiric antibiotics Vancomycin Flagyl Cefepime Aggressive lung clearance measures: DuoNeb bronchodilator IH NAC mucolytic SoluMedrol Manual chest percussive therapy Encourage strong coughing Continue gentle diuresis to minimize pulmonary edema. Clear liquid diet given BiPap dependency and aspiration risk. Electrolyte protocol. Diet: clear liquid Microbiology: Blood culture 07/10 (-) @ 48hrs Left lung BAL 07/12: g+ anam, acid fast (-) Continue discussions and await patient's decision regarding intubation with potential for trach. Qualifiers: Respiratory failure complication: hypercapnia Qualified Code(s): J96.22 - Acute and chronic respiratory failure with hypercapnia (2) Acute on chronic diastolic CHF (congestive heart failure) Current Visit: Yes Status: Acute Echo 07/2016: LVEF 65-70% with LV diastolic dysfunction, tricuspid regurgitation. Severe pulmonary hypertension (60mmHg). Cardiomegaly on CXR. CTA BL pleural effusion with right basilar atelectasis. (3) COPD (chronic obstructive pulmonary disease) Current Visit: No Status: Acute 30 pk yr hx of smoking. Quit smoking 1 month ago. Plan as above. Qualifiers: COPD type: unspecified COPD Qualified Code(s): J44.9 - Chronic obstructive pulmonary disease, unspecified (4) Morbid obesity with BMI of 70 and over, adult Current Visit: Yes Status: Chronic Guarded prognosis if patient needs intubation; likely a difficult intubation both with patient's anatomy as well as her low pulmonary reserve. Potentially difficult CPAP weaning for extubation. Patient tolerating BiPap at this time with intermittent Venti mask. (5) Non-insulin dependent type 2 diabetes mellitus Current Visit: Yes Status: Chronic On sliding scale insulin while in the ICU. (6) Tobacco abuse Current Visit: No Status: Acute Hx 1ppd x 30yr. Reportedly quit smoking tobacco 1 month ago. Discussed with the patient the need to continue tobacco abstinence notably in the setting of her current medical condition. (7) Atrial fibrillation Current Visit: Yes Status: Chronic Hx chronic atrial fibrillation. Currently NSR. Home meds: metoprolol 50mg PO BID, cardizem CD 360mg PO daily Cover with lopressor 5mg IV. Qualifiers: Atrial fibrillation type: chronic Qualified Code(s): I48.2 - Chronic atrial fibrillation (8) DVT prophylaxis Current Visit: Yes Status: Acute Lovenox Subjective Principal diagnosis: Acute on chronic respiratory failure Interval history: Hospital day 9/ICU day 5 No acute events overnight. Patient still BiPap dependent. When on venti mask, she slowly desaturates. No change in chest x-ray or symptoms this morning. Patient has not yet come to a conclusion regarding intubation and/or tracheostomy. Objective PUL Vital signs: Last Vital Signs Temp 97.5 F L 07/14/17 07:10 Pulse 106 07/14/17 09:00 Resp 23 07/14/17 09:00 BP 146/89 07/14/17 09:00 Pulse Ox 95 07/14/17 07:52 Results - Laboratory Findings CBC and BMP: 07/13/17 04:00 07/14/17 04:00 ABG ABG pH 7.49 pH Units (7.32-7.45) H 07/13/17 04:33 ABG pCO2 58 mmHg (35-45) H 07/13/17 04:33 ABG pO2 71 mmHg (85-104) L 07/13/17 04:33 ABG O2 Saturation 95 % (95-98) 07/13/17 04:33 PT/INR, D-dimer PT 15.5 Seconds (9.4-12.1) H 07/11/17 09:10 Abnormal lab findings: Abnormal lab results RBC 3.29 M/mcL (3.82-4.97) L 07/13/17 04:00 Hgb 8.1 g/dL (11.5-15.4) L 07/13/17 04:00 Hct 28.9 % (35.3-44.9) L 07/13/17 04:00 MCH 24.6 pg (28.0-33.3) L 07/13/17 04:00 MCHC 28.0 g/dL (31.6-35.5) L 07/13/17 04:00 RDW 19.3 % (11.5-14.5) H 07/13/17 04:00 Lymphocytes # 0.4 K/mcL (0.6-4.6) L 07/13/17 04:00 Nucleated RBCs/100 WBC 1.1 /100 WBC (0) H 07/13/17 04:00 Large Platelets Present (Not Present) A 07/08/17 05:02 Polychromasia 1+ (Not Present) A 07/13/17 04:00 Hypochromasia Present (Not Present) A 07/13/17 04:00 Poikilocytosis 1+ (Not Present) A 07/07/17 04:22 Anisocytosis 1+ (Not Present) A 07/13/17 04:00 Microcytosis Present (Not Present) A 07/12/17 05:45 Macrocytosis Present (Not Present) A 07/13/17 04:00 Spherocytes 1+ (Not Present) A 07/13/17 04:00 Stomatocytes 1+ (Not Present) A 07/13/17 04:00 PT 15.5 Seconds (9.4-12.1) H 07/11/17 09:10 ABG pH 7.49 pH Units (7.32-7.45) H 07/13/17 04:33 ABG pCO2 58 mmHg (35-45) H 07/13/17 04:33 ABG pO2 71 mmHg (85-104) L 07/13/17 04:33 ABG HCO3 45 mEq/L (21-27) H 07/13/17 04:33 ABG Total CO2 46 mEq/L (20-26) H 07/13/17 04:33 ABG Base Excess 19 mEq/L (-2 to 3) H 07/13/17 04:33 VBG pH 7.45 pH Units (7.32-7.42) H 07/13/17 22:07 VBG pCO2 71 mmHg (41-51) H* 07/13/17 22:07 VBG pO2 77 mmHg (25-50) H 07/13/17 22:07 VBG HCO3 49 mEq/L (21-27) H 07/13/17 22:07 Chloride 93 mEq/L (98-107) L 07/14/17 04:00 Carbon Dioxide 45 mEq/L (23-29) H* 07/14/17 04:00 BUN 25 mg/dL (6-20) H 07/14/17 04:00 Creatinine 0.51 mg/dL (0.60-1.20) L 07/14/17 04:00 BUN/Creatinine Ratio 49 (6-26) H 07/14/17 04:00 Glucose 190 mg/dL (70-105) H 07/14/17 04:00 POC Glucose 274 (58-89) H 07/13/17 19:34 Venous Ioniz Calcium 1.01 mmol/L (1.15-1.35) L 07/14/17 04:54 B-Natriuretic Peptide 863 pg/mL (Less than 100) H 07/04/17 14:31 Pleural Appearance Bloody (Clear) A 07/12/17 08:47 - Microbiology Findings Microbiology Findings: Microbiology, Last 48 Hours 07/12/17 08:47 Acid Fast Stain - Final Other-Specify in Comments 07/12/17 08:47 Gram Stain - Final Lung - Left Respiratory Culture - Preliminary Gram Positive Rods 07/10/17 16:31 Blood Culture - Preliminary Peripheral Venipuncture No growth. 07/10/17 16:31 Blood Culture - Preliminary Peripheral Venipuncture No growth. - Clinical Findings Intake & Output: Intake & Output 07/13/17 07/14/17 07/14/17 23:59 07:59 15:59 Intake Total 890 / 890 230 / 230 100 / 100 Output Total 1375 / 1375 625 / 625 1300 / 1300 Balance -485 / -485 -395 / -395 -1200 / -1200 Weight 201.7 kg Consult Discharge Plan - Plan Instructions: Heart Failure (DC) Additional Instructions: Decrease fluid intake. Continue with Lasix 40 mg 3 times a day. Prednisone taper as follows: 40 mg daily for 4 days, 30 mg for 4 days, 20 mg for 4 days and 10 mg for 4 days. Complete 2 more days of cefdinir Referrals: Aleksey Huggins DO [Primary Care Provider] - Prescriptions: Cefdinir [Omnicef] 300 mg PO BID #4 capsule predniSONE [PredniSONE] 10 mg PO DAILY 16 Days tablet <Smita Jensen - Last Filed: 07/14/17 22:31> Date of Encounter: 07/14/17 Objective PUL Vital signs: Last Vital Signs Temp 98.4 F 07/14/17 18:50 Pulse 87 07/14/17 21:00 Resp 30 07/14/17 21:00 BP 133/88 07/14/17 21:00 Pulse Ox 96 07/14/17 21:00 Results - Laboratory Findings CBC and BMP: 07/13/17 04:00 07/14/17 04:00 ABG ABG pH 7.49 pH Units (7.32-7.45) H 07/13/17 04:33 ABG pCO2 58 mmHg (35-45) H 07/13/17 04:33 ABG pO2 71 mmHg (85-104) L 07/13/17 04:33 ABG O2 Saturation 95 % (95-98) 07/13/17 04:33 PT/INR, D-dimer PT 15.5 Seconds (9.4-12.1) H 07/11/17 09:10 Abnormal lab findings: Abnormal lab results RBC 3.29 M/mcL (3.82-4.97) L 07/13/17 04:00 Hgb 8.1 g/dL (11.5-15.4) L 07/13/17 04:00 Hct 28.9 % (35.3-44.9) L 07/13/17 04:00 MCH 24.6 pg (28.0-33.3) L 07/13/17 04:00 MCHC 28.0 g/dL (31.6-35.5) L 07/13/17 04:00 RDW 19.3 % (11.5-14.5) H 07/13/17 04:00 Lymphocytes # 0.4 K/mcL (0.6-4.6) L 07/13/17 04:00 Nucleated RBCs/100 WBC 1.1 /100 WBC (0) H 07/13/17 04:00 Large Platelets Present (Not Present) A 07/08/17 05:02 Polychromasia 1+ (Not Present) A 07/13/17 04:00 Hypochromasia Present (Not Present) A 07/13/17 04:00 Poikilocytosis 1+ (Not Present) A 07/07/17 04:22 Anisocytosis 1+ (Not Present) A 07/13/17 04:00 Microcytosis Present (Not Present) A 07/12/17 05:45 Macrocytosis Present (Not Present) A 07/13/17 04:00 Spherocytes 1+ (Not Present) A 07/13/17 04:00 Stomatocytes 1+ (Not Present) A 07/13/17 04:00 PT 15.5 Seconds (9.4-12.1) H 07/11/17 09:10 ABG pH 7.49 pH Units (7.32-7.45) H 07/13/17 04:33 ABG pCO2 58 mmHg (35-45) H 07/13/17 04:33 ABG pO2 71 mmHg (85-104) L 07/13/17 04:33 ABG HCO3 45 mEq/L (21-27) H 07/13/17 04:33 ABG Total CO2 46 mEq/L (20-26) H 07/13/17 04:33 ABG Base Excess 19 mEq/L (-2 to 3) H 07/13/17 04:33 VBG pCO2 80 mmHg (41-51) H* 07/14/17 17:15 VBG pO2 181 mmHg (25-50) H 07/14/17 17:15 VBG HCO3 48 mEq/L (21-27) H 07/14/17 17:15 Chloride 93 mEq/L (98-107) L 07/14/17 04:00 Carbon Dioxide 45 mEq/L (23-29) H* 07/14/17 04:00 BUN 25 mg/dL (6-20) H 07/14/17 04:00 Creatinine 0.51 mg/dL (0.60-1.20) L 07/14/17 04:00 BUN/Creatinine Ratio 49 (6-26) H 07/14/17 04:00 Glucose 190 mg/dL (70-105) H 07/14/17 04:00 POC Glucose 274 (58-89) H 07/13/17 19:34 Venous Ioniz Calcium 1.01 mmol/L (1.15-1.35) L 07/14/17 17:31 B-Natriuretic Peptide 863 pg/mL (Less than 100) H 07/04/17 14:31 Pleural Appearance Bloody (Clear) A 07/12/17 08:47 - Microbiology Findings Microbiology Findings: Microbiology, Last 48 Hours 07/12/17 08:47 Gram Stain - Final Lung - Left Respiratory Culture - Final Corynebacterium striatum 07/12/17 08:47 Acid Fast Stain - Final Other-Specify in Comments - Clinical Findings Intake & Output: Intake & Output 07/14/17 07/14/17 07/14/17 07:59 15:59 23:59 Intake Total 230 / 230 1320 / 1320 1300 / 1300 Output Total 625 / 625 2150 / 2150 2150 / 2150 Balance -395 / -395 -830 / -830 -850 / -850 Weight 201.7 kg 199 kg - Attending Attestation - Attending Attestation I saw and evaluated this patient and my medical decision-making was reviewed with the Resident Physician. I agree with the documented findings, disposition and treatment plan as described except to the extent set forth below. We independently had [id number] contact with the patient I spent 32 minutes of Critical Care time with this patient. It involved decision making of high complexity to assess, manipulate, and support vital organ system failure and/or to prevent further life threatening deterioration of the patient's condition. The time involved in the performance of separately reportable procedures was not counted toward critical care time. Patient seen and examined at bedside Labs, radiology, chart personally reviewed. 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 To Continue BIPAP 24/04 will change to AVAPS if that gives increased tidal volume . ABG looks stable . Patient has COPD but this doesnt look like COPD exacerbation . 07/11 : Repeat CXR still with left lung collapse , ultrasound of the chest didnt show any significant pocket of fluid to tap . Will keep her NPO will attempt bronchoscopy tomorrow with high flow mask as conservative measures seems not working today after percussor therapy she coughed up some will continue with BIPAP to give breaks to clear liquid diet 07/12 Did bronchoscopy under local anaesthesia suctioned mucus plug from the left main stem bronchus and mucus plug from EMILIA bronchus and LLL bronchus put on AVAPS with EPAP of 12 after 4 hrs repeat CXR didnt show any improvement i increased the EPAP to 16 cm H2O and IPAP to 24 cm H2O . 07/13 not much in CXR it looks like it might getting into chronic collapse will diurese the the better lung will continue EPAP of 16 with IPAP of 24 will shift her position to right side to reduce the Right to left shunt will give breaks for clear liquid diet . If patient needs intubation will need in an controlled environment . Will continue conservative management will hold off repeat bronchoscopy . 07/14 ;Patient first day her FIO2 dropped to 60% with that V/Q mismatch was stable with saturation between 94-96% she tolerated off BIPAP the longest so far today will continue the diuresis and BIPAP with same settings tried send her to CT scan when she lied flat she desaturated because of her heavy size she has to lie flat in the scanner to fit in . Cards:Acute On Chronic Diastolic heart failure to continue diuresis as tolerated FEN-GI: To give BIPAP breaks with clear liquid diet if tolerated Renal: Labs and output reviewed ID: [email or web address] will continue broad spectrum antibiotics Vanc, Aztreonam and flagyl BAL growing corynebactrium striatum Heme/Onc:Labs reviewed Endo: Glucose Monitored Integ/MSK: Skin Care per routine ICU Nursing Protocol to prevent ulcers. Lines: All lines examined without evidence of infection : Dispo: Patient is critically ill high risk of worsening respiratory failure requiring intubation . CODE:Full Code
[2017-07-14] MEDS: Dexmedetomidine HCl 400 MCG/100 ML MLS IVC SCH ×2 (10:00→20:09)
[2017-07-14] MEDS: Aspirin 325 MG TABLET PO SCH (10:33)
[2017-07-14] MEDS: Diltiazem CD (24hr) 180 MG CAPSULE PO SCH (10:34)
[2017-07-14 17:20] LABS: VBG HCO3 48 mEq/L (21-27); VBG PCO2 80 mmHg (41-51); VBG PH 7.39 pH Units (7.32-7.42); VBG PO2 181 mmHg (25-50)
[2017-07-14 17:33] LABS: VBG Ionized Calcium 1.01 mmol/L (1.15-1.35)
[2017-07-15] MEDS: MetroNIDAZOLE 500 MG/100 ML 500 MG/100 ML BAG IVPB SCH ×3 (00:04→18:38)
[2017-07-15] MEDS: *HR* Metoprolol 5 MG/5 ML VIAL IVP SCH ×4 (00:06→18:37)
[2017-07-15 01:44] LABS: VBG Ionized Calcium 0.98 mmol/L (1.15-1.35)
[2017-07-15] MEDS: Acetylcysteine 10% 2 ML INHSOL IH SCH ×5 (03:39→19:48)
[2017-07-15] MEDS: Ipratropium/Albuterol Neb 3 ML IH SCH ×5 (03:39→19:47)
[2017-07-15 03:41] LABS: Hematocrit 27.9 % (35.3-44.9); Hemoglobin 7.7 g/dL (11.5-15.4); Mean Corpuscular HGB Conc 27.6 g/dL (31.6-35.5)
[2017-07-15 03:43] LABS: Immature Granulocytes % 1.5 % (0-4); Lymphocytes # 0.3 K/mcL (0.6-4.6); Mean Corpuscular Hemoglobin 24.5 pg (28.0-33.3); Mean Corpuscular Volume 88.9 fL (83.0-100.0); Mean Platelet Volume 10.3 fL (9.4-12.4); Monocytes # 0.4 K/mcL (0.0-1.3); Monocytes % 3.7 %; Nucleated Red Blood Cells 0.8 /100 WBC (0); Platelet Count 303 K/mcL (140-400); Red Blood Count 3.14 M/mcL (3.82-4.97); Red Cell Distribution Width 19.2 % (11.5-14.5); Segmented Neutrophils % 91.8 %
[2017-07-15 03:53] LABS: Neutrophils # 9.7 K/mcL (1.6-8.9)
[2017-07-15 04:15] LABS: Anisocytosis 2+ (Not Present); Hypochromasia Present (Not Present); Microcytosis Present (Not Present); Platelet Estimate Normal (Normal); Poikilocytosis 1+ (Not Present)
[2017-07-15] MEDS: Cefepime HCl 1,000 MG in Water for inj. (sterile) 20 ML 20 ML IVP SCH ×3 (04:16→20:02)
[2017-07-15] MEDS: Dexmedetomidine HCl 400 MCG/100 ML MLS IVC SCH ×2 (04:17→19:57)
[2017-07-15 04:34] LABS: Phosphorous 3.3 mg/dL (2.7-4.5)
[2017-07-15 04:45] LABS: BUN/Creatinine Ratio 43 (6-26); Blood Urea Nitrogen 22 mg/dL (6-20); Calcium 8.6 mg/dL (8.6-10.3); Carbon Dioxide 45 mEq/L (23-29); Chloride 92 mEq/L (98-107); Glucose 208 mg/dL (70-105); Osmolality,Calculated 301 (280-300); Potassium 3.6 mEq/L (3.5-5.1); Sodium 141 mEq/L (136-145); eGFR For African Americans > 60 (> 60); eGFR For Non-African Americans > 60 (> 60)
[2017-07-15 04:46] LABS: ABG Base Excess 21 mEq/L (-2 to 3); ABG HCO3 49 mEq/L (21-27); ABG Oxygen Saturation 80 % (95-98); ABG PCO2 79 mmHg (35-45); ABG PH 7.41 pH Units (7.32-7.45); ABG PO2 47 mmHg (85-104); ABG TCO2 52 mEq/L (20-26); Blood Gas Modality NIV
[2017-07-15 04:55] LABS: ABG Base Excess 22 mEq/L (-2 to 3); ABG HCO3 50 mEq/L (21-27); ABG Oxygen Saturation 82 % (95-98); ABG PCO2 81 mmHg (35-45); ABG PO2 50 mmHg (85-104); ABG TCO2 52 mEq/L (20-26); Blood Gas Modality NIV
[2017-07-15] MEDS: *HR* Enoxaparin 40 MG/0.4 ML SYRINGE SQ SCH (06:15)
--- NOTE | 2017-07-15 08:45 | Pulmonology Progress Note ---
Date of Encounter: 07/15/17 Time of Encounter: 07:30 Assessment and Plan (1) Acute respiratory failure with hypoxia and hypercapnia Current Visit: No Status: Acute Patient is on BIPAP tolerating well has compensated respiratory acidosis secondary to acute on chronic diastolic congestive heart failure , pneumonia , COPD ,Super Morbid obesity To give breaks as tolerated . (2) Acute on chronic diastolic CHF (congestive heart failure) Current Visit: Yes Status: Acute To continue diuresis as tolerated , patient is on electrolyte protocol . A fiB control with betablocker. (3) Lung collapse Current Visit: Yes Status: Acute Patient had bronchoscopy which shows mucus plug in the left main stem bronchus with some mucus plug in EMILIA and LLL bronchus with BAL growing corynebacterium striatum will consult ID on monday . CXR today showed re expansion of left lung with some right lower lobe consolidation with effusion will continue doing percussor therapy . (4) COPD (chronic obstructive pulmonary disease) Current Visit: Yes Status: Acute To continue bronchodilators and steroids will descalate steroids Qualifiers: COPD type: chronic bronchitis Chronic bronchitis type: unspecified Qualified Code(s): J42 - Unspecified chronic bronchitis (5) Morbid obesity with BMI of 70 and over, adult Current Visit: Yes Status: Chronic Patient has huge restriction of thoracic cavity due to morbid obesity contributing to hypoxemia Subjective Principal diagnosis: Acute on chronic respiratory failure Interval history: Patient tolerated clear liquid diet yesterday , says she had a good night sleep , still when she lies flat she desaturates could not send her for CT scan chest , say shortness of breadth is slight better , denies any chest pain or tightness still has some cough and sputum production , denies any other symptoms . Objective PUL Vital signs: Last Vital Signs Temp 98.2 F 07/15/17 08:03 Pulse 82 07/15/17 08:25 Resp 22 07/15/17 07:51 BP 113/91 07/15/17 07:51 Pulse Ox 95 07/15/17 07:51 Effort: mildly labored Auscultation: bilateral: diminished breath sounds, other (scattered crackles ) Cardiovascular: irregular rhythm Gastrointestinal: soft, non-tender, other (obese ) Extremities: edema Results - Laboratory Findings CBC and BMP: 07/15/17 03:10 07/15/17 03:10 ABG ABG pH 7.40 pH Units (7.32-7.45) 07/15/17 04:50 ABG pCO2 81 mmHg (35-45) H* 07/15/17 04:50 ABG pO2 50 mmHg (85-104) L* 07/15/17 04:50 ABG O2 Saturation 82 % (95-98) L 07/15/17 04:50 PT/INR, D-dimer PT 15.5 Seconds (9.4-12.1) H 07/11/17 09:10 Abnormal lab findings: Abnormal lab results RBC 3.14 M/mcL (3.82-4.97) L 07/15/17 03:10 Hgb 7.7 g/dL (11.5-15.4) L 07/15/17 03:10 Hct 27.9 % (35.3-44.9) L 07/15/17 03:10 MCH 24.5 pg (28.0-33.3) L 07/15/17 03:10 MCHC 27.6 g/dL (31.6-35.5) L 07/15/17 03:10 RDW 19.2 % (11.5-14.5) H 07/15/17 03:10 Neutrophils # 9.7 K/mcL (1.6-8.9) H 07/15/17 03:10 Lymphocytes # 0.3 K/mcL (0.6-4.6) L 07/15/17 03:10 Nucleated RBCs/100 WBC 0.8 /100 WBC (0) H 07/15/17 03:10 Large Platelets Present (Not Present) A 07/08/17 05:02 Polychromasia 1+ (Not Present) A 07/13/17 04:00 Hypochromasia Present (Not Present) A 07/15/17 03:10 Poikilocytosis 1+ (Not Present) A 07/15/17 03:10 Anisocytosis 2+ (Not Present) A 07/15/17 03:10 Microcytosis Present (Not Present) A 07/15/17 03:10 Macrocytosis Present (Not Present) A 07/13/17 04:00 Spherocytes 1+ (Not Present) A 07/13/17 04:00 Stomatocytes 1+ (Not Present) A 07/13/17 04:00 PT 15.5 Seconds (9.4-12.1) H 07/11/17 09:10 ABG pCO2 81 mmHg (35-45) H* 07/15/17 04:50 ABG pO2 50 mmHg (85-104) L* 07/15/17 04:50 ABG HCO3 50 mEq/L (21-27) H 07/15/17 04:50 ABG Total CO2 52 mEq/L (20-26) H 07/15/17 04:50 ABG O2 Saturation 82 % (95-98) L 07/15/17 04:50 ABG Base Excess 22 mEq/L (-2 to 3) H 07/15/17 04:50 VBG pCO2 80 mmHg (41-51) H* 07/14/17 17:15 VBG pO2 181 mmHg (25-50) H 07/14/17 17:15 VBG HCO3 48 mEq/L (21-27) H 07/14/17 17:15 Chloride 92 mEq/L (98-107) L 07/15/17 03:10 Carbon Dioxide 45 mEq/L (23-29) H* 07/15/17 03:10 BUN 22 mg/dL (6-20) H 07/15/17 03:10 Creatinine 0.51 mg/dL (0.60-1.20) L 07/15/17 03:10 BUN/Creatinine Ratio 43 (6-26) H 07/15/17 03:10 Glucose 208 mg/dL (70-105) H 07/15/17 03:10 POC Glucose 300 (58-89) H 07/14/17 18:45 Calculated Osmolality 301 (280-300) H 07/15/17 03:10 Venous Ioniz Calcium 0.98 mmol/L (1.15-1.35) L 07/15/17 01:40 B-Natriuretic Peptide 863 pg/mL (Less than 100) H 07/04/17 14:31 Pleural Appearance Bloody (Clear) A 07/12/17 08:47 - Microbiology Findings Microbiology Findings: Microbiology, Last 48 Hours 07/12/17 08:47 Gram Stain - Final Lung - Left Respiratory Culture - Final Corynebacterium striatum 07/12/17 08:47 Acid Fast Stain - Final Other-Specify in Comments - Clinical Findings Intake & Output: Intake & Output 07/14/17 07/15/1718 23:59 07:59 15:59 Intake Total 1780 / 1780 230 / 230 250 / 250 Output Total 2475 / 2475 600 / 600 200 / 200 Balance -695 / -695 -370 / -370 50 / 50 Weight 197.9 kg Consult Discharge Plan - Plan Instructions: Heart Failure (DC) Additional Instructions: Decrease fluid intake. Continue with Lasix 40 mg 3 times a day. Prednisone taper as follows: 40 mg daily for 4 days, 30 mg for 4 days, 20 mg for 4 days and 10 mg for 4 days. Complete 2 more days of cefdinir Referrals: Aleksey Huggins DO [Primary Care Provider] - Prescriptions: Cefdinir [Omnicef] 300 mg PO BID #4 capsule predniSONE [PredniSONE] 10 mg PO DAILY 16 Days tablet
[2017-07-15] MEDS: Nicotine 14 MG PATCH.TD24 TD SCH (08:57)
[2017-07-15] MEDS: Diltiazem CD (24hr) 180 MG CAPSULE PO SCH (08:58)
[2017-07-15] MEDS: Aspirin 325 MG TABLET PO SCH (08:58)
[2017-07-15] MEDS: Pantoprazole 40 MG VIAL IVP SCH (08:58)
[2017-07-15] MEDS: Furosemide 40 MG/4 ML VIAL IVP SCH ×2 (08:58→20:01)
[2017-07-15] MEDS: Insulin LISPRO 300 UNITS/3 ML VIAL SQ SCH ×4 (08:59→19:58)
[2017-07-15] MEDS: Nystatin POWDER 30 GM BOTTLE TP SCH ×2 (08:59→20:03)
[2017-07-15 16:41] LABS: VBG Ionized Calcium 1.04 mmol/L (1.15-1.35)
[2017-07-15] MEDS: MethylPREDNISolone 40 MG/ML VIAL IVP SCH (18:37)
[2017-07-16] MEDS: MetroNIDAZOLE 500 MG/100 ML 500 MG/100 ML BAG IVPB SCH ×4 (00:24→23:51)
[2017-07-16] MEDS: *HR* Metoprolol 5 MG/5 ML VIAL IVP SCH ×5 (00:24→23:52)
[2017-07-16] MEDS: Dexmedetomidine HCl 400 MCG/100 ML MLS IVC SCH ×2 (00:26→19:34)
[2017-07-16] MEDS: Acetylcysteine 10% 2 ML INHSOL IH SCH ×6 (00:38→20:53)
[2017-07-16] MEDS: Ipratropium/Albuterol Neb 3 ML IH SCH ×6 (00:38→20:57)
[2017-07-16 03:55] LABS: VBG Ionized Calcium 0.99 mmol/L (1.15-1.35)
[2017-07-16] MEDS: Cefepime HCl 1,000 MG in Water for inj. (sterile) 20 ML 20 ML IVP SCH ×3 (04:58→19:34)
[2017-07-16] MEDS: MethylPREDNISolone 40 MG/ML VIAL IVP SCH ×2 (06:10→17:24)
[2017-07-16] MEDS: *HR* Enoxaparin 40 MG/0.4 ML SYRINGE SQ SCH (06:10)
--- NOTE | 2017-07-16 07:46 | Pulmonology Progress Note ---
Date of Encounter: 07/16/17 Time of Encounter: 07:30 Assessment and Plan (1) Acute respiratory failure with hypoxia and hypercapnia Current Visit: No Status: Acute Patient is on BIPAP tolerating well has compensated respiratory acidosis secondary to acute on chronic diastolic congestive heart failure , pneumonia , COPD ,Super Morbid obesity To give breaks as tolerated . (2) Acute on chronic diastolic CHF (congestive heart failure) Current Visit: Yes Status: Acute To continue diuresis as tolerated , patient is on electrolyte protocol . A fiB control with calcium channel thad (3) Lung collapse Current Visit: Yes Status: Acute Patient had bronchoscopy which shows mucus plug in the left main stem bronchus with some mucus plug in EMILIA and LLL bronchus with BAL growing corynebacterium striatum will consult ID on monday . CXR today showed re expansion of left lung with some right lower lobe consolidation with effusion will continue doing percussor therapy . 07/16 Left lung opened up yesterday when she is more stable will send her for CT scan w/o contrast (4) COPD (chronic obstructive pulmonary disease) Current Visit: Yes Status: Acute To continue bronchodilators and steroids will descalate steroids Qualifiers: COPD type: chronic bronchitis Chronic bronchitis type: mixed simple and mucopurulent Qualified Code(s): J41.8 - Mixed simple and mucopurulent chronic bronchitis (5) Morbid obesity with BMI of 70 and over, adult Current Visit: Yes Status: Chronic Patient has huge restriction of thoracic cavity due to morbid obesity contributing to hypoxemia (6) Pneumonia Current Visit: Yes Status: Acute BAL growing corynebacterium striatum will start descalating antibiotics . Qualifiers: Pneumonia type: aspiration pneumonia Laterality: left Lung location: unspecified part of lung Qualified Code(s): J69.0 - Pneumonitis due to inhalation of food and vomit Subjective Principal diagnosis: Acute on chronic respiratory failure Interval history: Patient tolerated clear liquid diet yesterday , says she had a good night sleep , still when she lies flat she desaturates could not send her for CT scan chest , say shortness of breadth is slight better , denies any chest pain or tightness still has some cough and sputum production , denies any other symptoms . 07/16 Patient tolerated off BIPAP yesterday for almost 8 hrs , patient says her shortness of breadth is slowly getting better , has cough and she is bring up sputum , denies any chest pain or palpitations Objective PUL Vital signs: Last Vital Signs Temp 98.0 F 07/16/17 03:45 Pulse 80 07/16/17 06:00 Resp 20 07/16/17 06:00 BP 125/88 07/16/17 06:00 Pulse Ox 94 07/16/17 06:00 Effort: mildly labored Auscultation: bilateral: diminished breath sounds, wheezes Gastrointestinal: other (obese abdomen) Extremities: edema Results - Laboratory Findings CBC and BMP: 07/16/17 08:25 07/16/17 08:25 ABG ABG pH 7.40 pH Units (7.32-7.45) 07/15/17 04:50 ABG pCO2 81 mmHg (35-45) H* 07/15/17 04:50 ABG pO2 50 mmHg (85-104) L* 07/15/17 04:50 ABG O2 Saturation 82 % (95-98) L 07/15/17 04:50 PT/INR, D-dimer PT 15.5 Seconds (9.4-12.1) H 07/11/17 09:10 Abnormal lab findings: Abnormal lab results RBC 3.14 M/mcL (3.82-4.97) L 07/15/17 03:10 Hgb 7.7 g/dL (11.5-15.4) L 07/15/17 03:10 Hct 27.9 % (35.3-44.9) L 07/15/17 03:10 MCH 24.5 pg (28.0-33.3) L 07/15/17 03:10 MCHC 27.6 g/dL (31.6-35.5) L 07/15/17 03:10 RDW 19.2 % (11.5-14.5) H 07/15/17 03:10 Neutrophils # 9.7 K/mcL (1.6-8.9) H 07/15/17 03:10 Lymphocytes # 0.3 K/mcL (0.6-4.6) L 07/15/17 03:10 Nucleated RBCs/100 WBC 0.8 /100 WBC (0) H 07/15/17 03:10 Large Platelets Present (Not Present) A 07/08/17 05:02 Polychromasia 1+ (Not Present) A 07/13/17 04:00 Hypochromasia Present (Not Present) A 07/15/17 03:10 Poikilocytosis 1+ (Not Present) A 07/15/17 03:10 Anisocytosis 2+ (Not Present) A 07/15/17 03:10 Microcytosis Present (Not Present) A 07/15/17 03:10 Macrocytosis Present (Not Present) A 07/13/17 04:00 Spherocytes 1+ (Not Present) A 07/13/17 04:00 Stomatocytes 1+ (Not Present) A 07/13/17 04:00 PT 15.5 Seconds (9.4-12.1) H 07/11/17 09:10 ABG pCO2 81 mmHg (35-45) H* 07/15/17 04:50 ABG pO2 50 mmHg (85-104) L* 07/15/17 04:50 ABG HCO3 50 mEq/L (21-27) H 07/15/17 04:50 ABG Total CO2 52 mEq/L (20-26) H 07/15/17 04:50 ABG O2 Saturation 82 % (95-98) L 07/15/17 04:50 ABG Base Excess 22 mEq/L (-2 to 3) H 07/15/17 04:50 VBG pCO2 80 mmHg (41-51) H* 07/14/17 17:15 VBG pO2 181 mmHg (25-50) H 07/14/17 17:15 VBG HCO3 48 mEq/L (21-27) H 07/14/17 17:15 Chloride 92 mEq/L (98-107) L 07/15/17 03:10 Carbon Dioxide 45 mEq/L (23-29) H* 07/15/17 03:10 BUN 22 mg/dL (6-20) H 07/15/17 03:10 Creatinine 0.51 mg/dL (0.60-1.20) L 07/15/17 03:10 BUN/Creatinine Ratio 43 (6-26) H 07/15/17 03:10 Glucose 208 mg/dL (70-105) H 07/15/17 03:10 POC Glucose 108 (58-89) H 07/15/17 18:41 Calculated Osmolality 301 (280-300) H 07/15/17 03:10 Venous Ioniz Calcium 0.99 mmol/L (1.15-1.35) L 07/16/17 03:50 B-Natriuretic Peptide 863 pg/mL (Less than 100) H 07/04/17 14:31 Pleural Appearance Bloody (Clear) A 07/12/17 08:47 - Microbiology Findings Microbiology Findings: Microbiology, Last 48 Hours 07/10/17 16:31 Blood Culture - Final Peripheral Venipuncture No growth. 07/10/17 16:31 Blood Culture - Final Peripheral Venipuncture No growth. 07/12/17 08:47 Gram Stain - Final Lung - Left Respiratory Culture - Final Corynebacterium striatum - Clinical Findings Intake & Output: Intake & Output 07/15/17 07/15/17 07/16/17 15:59 23:59 08:59 Intake Total 790 / 790 800 / 800 230 / 230 Output Total 1800 / 1800 2750 / 2750 350 / 350 Balance -1010 / -1010 -1950 / -1950 -120 / -120 Weight 194.9 kg Consult Discharge Plan - Plan Instructions: Heart Failure (DC) Additional Instructions: Decrease fluid intake. Continue with Lasix 40 mg 3 times a day. Prednisone taper as follows: 40 mg daily for 4 days, 30 mg for 4 days, 20 mg for 4 days and 10 mg for 4 days. Complete 2 more days of cefdinir Referrals: Aleksey Huggins DO [Primary Care Provider] - Prescriptions: Cefdinir [Omnicef] 300 mg PO BID #4 capsule predniSONE [PredniSONE] 10 mg PO DAILY 16 Days tablet
[2017-07-16] MEDS: Nicotine 14 MG PATCH.TD24 TD SCH (07:58)
[2017-07-16] MEDS: Aspirin 325 MG TABLET PO SCH (07:59)
[2017-07-16] MEDS: Diltiazem CD (24hr) 180 MG CAPSULE PO SCH (07:59)
[2017-07-16] MEDS: Furosemide 40 MG/4 ML VIAL IVP SCH ×2 (08:00→19:34)
[2017-07-16] MEDS: Pantoprazole 40 MG VIAL IVP SCH (08:00)
[2017-07-16] MEDS: Insulin LISPRO 300 UNITS/3 ML VIAL SQ SCH ×4 (08:42→19:36)
[2017-07-16] MEDS: Nystatin POWDER 30 GM BOTTLE TP SCH ×2 (08:43→19:35)
[2017-07-16 08:47] LABS: VBG Ionized Calcium 1.02 mmol/L (1.15-1.35)
[2017-07-16 09:08] LABS: Basophils % 0.1 %
[2017-07-16 09:10] LABS: Hematocrit 30.9 % (35.3-44.9); Hemoglobin 8.3 g/dL (11.5-15.4); Immature Granulocytes % 1.2 % (0-4); Lymphocytes # 0.5 K/mcL (0.6-4.6); Mean Corpuscular HGB Conc 26.9 g/dL (31.6-35.5); Mean Corpuscular Hemoglobin 24.3 pg (28.0-33.3); Mean Corpuscular Volume 90.4 fL (83.0-100.0); Mean Platelet Volume 10.2 fL (9.4-12.4); Monocytes # 0.6 K/mcL (0.0-1.3); Monocytes % 3.6 %; Nucleated Red Blood Cells 0.5 /100 WBC (0); Platelet Count 299 K/mcL (140-400); Red Blood Count 3.42 M/mcL (3.82-4.97); Red Cell Distribution Width 19.5 % (11.5-14.5); Segmented Neutrophils % 92.1 %
[2017-07-16 09:14] LABS: Neutrophils # 15.8 K/mcL (1.6-8.9)
[2017-07-16 09:25] LABS: BUN/Creatinine Ratio 41 (6-26); Blood Urea Nitrogen 20 mg/dL (6-20); Calcium 8.9 mg/dL (8.6-10.3); Carbon Dioxide > 45 mEq/L (23-29); Chloride 93 mEq/L (98-107); Glucose 167 mg/dL (70-105); Magnesium 1.9 mg/dL (1.6-2.6); Osmolality,Calculated 298 (280-300); Potassium 3.9 mEq/L (3.5-5.1); Sodium 141 mEq/L (136-145); eGFR For African Americans > 60 (> 60); eGFR For Non-African Americans > 60 (> 60)
[2017-07-16 09:45] LABS: Hypochromasia Present (Not Present)
[2017-07-16 09:46] LABS: Anisocytosis 1+ (Not Present); Platelet Estimate Normal (Normal)
[2017-07-17] MEDS: Acetylcysteine 10% 2 ML INHSOL IH SCH ×5 (00:34→23:09)
[2017-07-17] MEDS: Ipratropium/Albuterol Neb 3 ML IH SCH ×7 (00:34→23:09)
[2017-07-17] MEDS: Cefepime HCl 1,000 MG in Water for inj. (sterile) 20 ML 20 ML IVP SCH (04:33)
[2017-07-17] MEDS: Dexmedetomidine HCl 400 MCG/100 ML MLS IVC SCH (04:34)
[2017-07-17] MEDS: *HR* Enoxaparin 40 MG/0.4 ML SYRINGE SQ SCH (05:51)
[2017-07-17] MEDS: *HR* Metoprolol 5 MG/5 ML VIAL IVP SCH ×4 (05:52→23:20)
[2017-07-17] MEDS: MethylPREDNISolone 40 MG/ML VIAL IVP SCH (05:52)
[2017-07-17] MEDS ORDERED: Aminoglycoside Consult 1 EACH MC ONE (07:44)
--- NOTE | 2017-07-17 08:23 | Pulmonology Progress Note ---
<Walter Interiano M - Last Filed: 07/17/17 13:10> Date of Encounter: 07/17/17 Objective PUL Vital signs: Last Vital Signs Temp 99.1 F 07/17/17 12:00 Pulse 98 07/17/17 13:00 Resp 28 07/17/17 13:00 BP 112/84 07/17/17 13:00 Pulse Ox 93 07/17/17 13:00 Results - Laboratory Findings CBC and BMP: 07/17/17 11:45 07/16/17 08:25 ABG ABG pH 7.40 pH Units (7.32-7.45) 07/15/17 04:50 ABG pCO2 81 mmHg (35-45) H* 07/15/17 04:50 ABG pO2 50 mmHg (85-104) L* 07/15/17 04:50 ABG O2 Saturation 82 % (95-98) L 07/15/17 04:50 PT/INR, D-dimer PT 15.5 Seconds (9.4-12.1) H 07/11/17 09:10 Abnormal lab findings: Abnormal lab results WBC 17.0 K/mcL (4.3-11.1) H 07/17/17 11:45 RBC 3.42 M/mcL (3.82-4.97) L 07/17/17 11:45 Hgb 8.4 g/dL (11.5-15.4) L 07/17/17 11:45 Hct 31.1 % (35.3-44.9) L 07/17/17 11:45 MCH 24.6 pg (28.0-33.3) L 07/17/17 11:45 MCHC 27.0 g/dL (31.6-35.5) L 07/17/17 11:45 RDW 19.9 % (11.5-14.5) H 07/17/17 11:45 Neutrophils # 15.5 K/mcL (1.6-8.9) H 07/17/17 11:45 Lymphocytes # 0.4 K/mcL (0.6-4.6) L 07/17/17 11:45 Nucleated RBCs/100 WBC 0.5 /100 WBC (0) H 07/17/17 11:45 Large Platelets Present (Not Present) A 07/08/17 05:02 Polychromasia 1+ (Not Present) A 07/13/17 04:00 Hypochromasia Present (Not Present) A 07/17/17 11:45 Poikilocytosis 1+ (Not Present) A 07/15/17 03:10 Anisocytosis 1+ (Not Present) A 07/17/17 11:45 Microcytosis Present (Not Present) A 07/15/17 03:10 Macrocytosis Present (Not Present) A 07/13/17 04:00 Spherocytes 1+ (Not Present) A 07/13/17 04:00 Stomatocytes 1+ (Not Present) A 07/13/17 04:00 PT 15.5 Seconds (9.4-12.1) H 07/11/17 09:10 ABG pCO2 81 mmHg (35-45) H* 07/15/17 04:50 ABG pO2 50 mmHg (85-104) L* 07/15/17 04:50 ABG HCO3 50 mEq/L (21-27) H 07/15/17 04:50 ABG Total CO2 52 mEq/L (20-26) H 07/15/17 04:50 ABG O2 Saturation 82 % (95-98) L 07/15/17 04:50 ABG Base Excess 22 mEq/L (-2 to 3) H 07/15/17 04:50 VBG pCO2 80 mmHg (41-51) H* 07/14/17 17:15 VBG pO2 181 mmHg (25-50) H 07/14/17 17:15 VBG HCO3 48 mEq/L (21-27) H 07/14/17 17:15 Chloride 93 mEq/L (98-107) L 07/16/17 08:25 Carbon Dioxide > 45 mEq/L (23-29) H* 07/16/17 08:25 Creatinine 0.49 mg/dL (0.60-1.20) L 07/16/17 08:25 BUN/Creatinine Ratio 41 (6-26) H 07/16/17 08:25 Glucose 167 mg/dL (70-105) H 07/16/17 08:25 POC Glucose 224 (58-89) H 07/17/17 11:28 Venous Ioniz Calcium 1.02 mmol/L (1.15-1.35) L 07/16/17 08:45 B-Natriuretic Peptide 863 pg/mL (Less than 100) H 07/04/17 14:31 Pleural Appearance Bloody (Clear) A 07/12/17 08:47 - Microbiology Findings Microbiology Findings: Microbiology, Last 48 Hours 07/10/17 16:31 Blood Culture - Final Peripheral Venipuncture No growth. 07/10/17 16:31 Blood Culture - Final Peripheral Venipuncture No growth. - Clinical Findings Intake & Output: Intake & Output 07/16/17 07/17/17 07/17/17 23:59 07:59 15:59 Intake Total 570 / 570 320 / 320 250 / 250 Output Total 2275 / 2275 200 / 200 800 / 800 Balance -1705 / -1705 120 / 120 -550 / -550 Weight 197.1 kg Consult Discharge Plan - Plan Instructions: Heart Failure (DC) Additional Instructions: Decrease fluid intake. Continue with Lasix 40 mg 3 times a day. Prednisone taper as follows: 40 mg daily for 4 days, 30 mg for 4 days, 20 mg for 4 days and 10 mg for 4 days. Complete 2 more days of cefdinir Referrals: Aleksey Huggins DO [Primary Care Provider] - Prescriptions: Cefdinir [Omnicef] 300 mg PO BID #4 capsule predniSONE [PredniSONE] 10 mg PO DAILY 16 Days tablet - Attending Attestation I examined this patient and my medical decision-making was reviewed with the Resident Physician. I agree with the documented findings, disposition and treatment plan as described except to the extent set forth below. Patient seen and examined. Labs, radiology, chart personally reviewed. 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 Continue noninvasive ventilation. I have explained to patient about important of early mobilization and also sent spirometry. Cardiovascular: stable GI: Nutrition per dietary and GI prophylaxis per routine Heme: DVT prophylaxis per routine ID: Continue antibiotics and plan to de-escalation Renal; urine out put and renal funtion reviewed Endorcine: blood glucose is monitored Lines: all lines checked and no evidence of infections Skin: skin care to prevent pressure ulcers per nursing routine care Continue monitoring ICU was patients having multiple comorbidities and potential for deterioration especially her respiratory system. <Aleksey Huggisn - Last Filed: 07/17/17 14:47> Date of Encounter: 07/17/17 Time of Encounter: 09:00 Assessment and Plan (1) Acute respiratory failure with hypoxia and hypercapnia Current Visit: Yes Status: Acute Cont O2 via NC at requisite level; attempting to taper down to baseline level ( 5LPM at home) Encouraged and educated on use of IS Cont BiPAP as needed during day and necessarily at night Change NAC schedule to q8h Cont IV Vanco due to C. striatum (07/12/17 from BAL) D/c other antibiotics Will follow WBC; 17k this afternoon Begin to taper steroids; convert to PO today Cont IV Lasix and fluid restriction (2) Acute on chronic diastolic CHF (congestive heart failure) Current Visit: Yes Status: Acute Plans as above A-fib rate controlled with CCB (3) HCAP (healthcare-associated pneumonia) Current Visit: Yes Status: Acute RLL; has been on broad-spectrum antibiotics; de-escalate to IV Vancomycin due to isolated C. striatum (4) COPD (chronic obstructive pulmonary disease) Current Visit: Yes Status: Acute Mucus plug found on BAL; C. striatum isolated plans as above Qualifiers: COPD type: chronic bronchitis Chronic bronchitis type: mixed simple and mucopurulent Qualified Code(s): J41.8 - Mixed simple and mucopurulent chronic bronchitis (5) Lung collapse Current Visit: Yes Status: Acute L lung showed re-expansion on follow up XR after BAL (6) Atrial fibrillation Current Visit: Yes Status: Chronic Rate controlled; CCB as above [id number] = 4; not on oral anticoagulant, suspect due to chronic anemia Qualifiers: Atrial fibrillation type: paroxysmal Qualified Code(s): I48.0 - Paroxysmal atrial fibrillation (7) Morbid obesity with BMI of 60.0-69.9, adult Current Visit: Yes Status: Chronic Contributor to respiratory status (8) Non-insulin dependent type 2 diabetes mellitus Current Visit: Yes Status: Chronic Starting diabetic diet Escalated SSI to medium dose scale add Basal per 24h need (9) Decubitus ulcer Current Visit: Yes Status: Acute Low grade with no signs of infection -- approximately 1.5 x 1.5 cm Cont to monitor, cont Nystatin for barrier, and encourage positional changes Consider wound care consult in subsequent days if any worsening noted on exam Qualifiers: Pressure ulcer location: buttock Pressure ulcer stage: stage 1 Laterality : left Qualified Code(s): L89.321 - Pressure ulcer of left buttock, stage 1 (10) DVT prophylaxis Current Visit: Yes Status: Acute Sub Q Lovenox Subjective Principal diagnosis: Acute on chronic respiratory failure Interval history: Comfortable in bed with HOB elevated. Saturating low 90s on 15Lpm high flow via nasal cannula. Desaturates conversationally and speaks in interrupted sentences. No fevers or overnight events. Desires full diet. Nursing mentions acute decubitus skin breakdown near gluteal fold. Objective PUL Vital signs: Last Vital Signs Temp 98.9 F 07/17/17 04:48 Pulse 85 07/17/17 07:00 Resp 20 07/17/17 07:00 BP 148/72 07/17/17 07:00 Pulse Ox 98 07/17/17 07:00 General appearance: no acute distress Eyes: nonicteric ENT: oropharynx moist Effort: mildly labored (with conversation; desaturates concurrently) Auscultation: bilateral: wheezes (transient wheeze; difficult auscultation) Cardiovascular: irregular rhythm Integumentary: decubitus ulcer (small abrasive/erosive skin break without acute signs of infection near left gluteal fold; area about 1.5x1.5cm) Extremities: pulses normal, edema (mildly edematous b/l LE; concurrent morbidly obese habitus) mood appropriate, affect normal Results - Laboratory Findings CBC and BMP: 07/17/17 11:45 07/16/17 08:25 ABG ABG pH 7.40 pH Units (7.32-7.45) 07/15/17 04:50 ABG pCO2 81 mmHg (35-45) H* 07/15/17 04:50 ABG pO2 50 mmHg (85-104) L* 07/15/17 04:50 ABG O2 Saturation 82 % (95-98) L 07/15/17 04:50 PT/INR, D-dimer PT 15.5 Seconds (9.4-12.1) H 07/11/17 09:10 Abnormal lab findings: Abnormal lab results WBC 17.1 K/mcL (4.3-11.1) H D 07/16/17 08:25 RBC 3.42 M/mcL (3.82-4.97) L 07/16/17 08:25 Hgb 8.3 g/dL (11.5-15.4) L 07/16/17 08:25 Hct 30.9 % (35.3-44.9) L 07/16/17 08:25 MCH 24.3 pg (28.0-33.3) L 07/16/17 08:25 MCHC 26.9 g/dL (31.6-35.5) L 07/16/17 08:25 RDW 19.5 % (11.5-14.5) H 07/16/17 08:25 Neutrophils # 15.8 K/mcL (1.6-8.9) H 07/16/17 08:25 Lymphocytes # 0.5 K/mcL (0.6-4.6) L 07/16/17 08:25 Nucleated RBCs/100 WBC 0.5 /100 WBC (0) H 07/16/17 08:25 Large Platelets Present (Not Present) A 07/08/17 05:02 Polychromasia 1+ (Not Present) A 07/13/17 04:00 Hypochromasia Present (Not Present) A 07/16/17 08:25 Poikilocytosis 1+ (Not Present) A 07/15/17 03:10 Anisocytosis 1+ (Not Present) A 07/16/17 08:25 Microcytosis Present (Not Present) A 07/15/17 03:10 Macrocytosis Present (Not Present) A 07/13/17 04:00 Spherocytes 1+ (Not Present) A 07/13/17 04:00 Stomatocytes 1+ (Not Present) A 07/13/17 04:00 PT 15.5 Seconds (9.4-12.1) H 07/11/17 09:10 ABG pCO2 81 mmHg (35-45) H* 07/15/17 04:50 ABG pO2 50 mmHg (85-104) L* 07/15/17 04:50 ABG HCO3 50 mEq/L (21-27) H 07/15/17 04:50 ABG Total CO2 52 mEq/L (20-26) H 07/15/17 04:50 ABG O2 Saturation 82 % (95-98) L 07/15/17 04:50 ABG Base Excess 22 mEq/L (-2 to 3) H 07/15/17 04:50 VBG pCO2 80 mmHg (41-51) H* 07/14/17 17:15 VBG pO2 181 mmHg (25-50) H 07/14/17 17:15 VBG HCO3 48 mEq/L (21-27) H 07/14/17 17:15 Chloride 93 mEq/L (98-107) L 07/16/17 08:25 Carbon Dioxide > 45 mEq/L (23-29) H* 07/16/17 08:25 Creatinine 0.49 mg/dL (0.60-1.20) L 07/16/17 08:25 BUN/Creatinine Ratio 41 (6-26) H 07/16/17 08:25 Glucose 167 mg/dL (70-105) H 07/16/17 08:25 POC Glucose 189 (58-89) H 07/17/17 07:15 Venous Ioniz Calcium 1.02 mmol/L (1.15-1.35) L 07/16/17 08:45 B-Natriuretic Peptide 863 pg/mL (Less than 100) H 07/04/17 14:31 Pleural Appearance Bloody (Clear) A 07/12/17 08:47 - Microbiology Findings Microbiology Findings: Microbiology, Last 48 Hours 07/10/17 16:31 Blood Culture - Final Peripheral Venipuncture No growth. 07/10/17 16:31 Blood Culture - Final Peripheral Venipuncture No growth. - Clinical Findings Intake & Output: Intake & Output 07/16/17 07/17/17 07/17/17 23:59 07:59 15:59 Intake Total 570 / 570 320 / 320 Output Total 2275 / 2275 200 / 200 Balance -1705 / -1705 120 / 120 Weight 197.1 kg
[2017-07-17] MEDS: Insulin LISPRO 300 UNITS/3 ML VIAL SQ SCH ×4 (08:48→19:46)
[2017-07-17] MEDS: MetroNIDAZOLE 500 MG/100 ML 500 MG/100 ML BAG IVPB SCH (08:48)
[2017-07-17] MEDS: Aspirin 325 MG TABLET PO SCH (08:49)
[2017-07-17] MEDS: Nicotine 14 MG PATCH.TD24 TD SCH (08:49)
[2017-07-17] MEDS: Diltiazem CD (24hr) 180 MG CAPSULE PO SCH (08:49)
[2017-07-17] MEDS: Nystatin POWDER 30 GM BOTTLE TP SCH ×2 (08:50→19:34)
[2017-07-17] MEDS: Furosemide 40 MG/4 ML VIAL IVP SCH ×2 (08:50→19:33)
[2017-07-17] MEDS: Pantoprazole 40 MG VIAL IVP SCH (08:50)
[2017-07-17] MEDS ORDERED: D5% in Water 1,000 ML IVC PRN (10:39)
[2017-07-17] MEDS ORDERED: Dextrose Gel 15 GM/37.5 ML TUBE PO PRN ×2 (10:39)
[2017-07-17] MEDS ORDERED: *HR* Dextrose 50 % in Water (Syg) 50 ML SYRINGE IVP PRN (10:39)
[2017-07-17 11:58] LABS: Basophils % 0.1 %; Mean Platelet Volume 9.9 fL (9.4-12.4); Red Cell Distribution Width 19.9 % (11.5-14.5)
[2017-07-17 11:59] LABS: Hematocrit 31.1 % (35.3-44.9); Hemoglobin 8.4 g/dL (11.5-15.4); Immature Granulocytes % 2.1 % (0-4); Lymphocytes % 2.6 %; Mean Corpuscular Hemoglobin 24.6 pg (28.0-33.3); Mean Corpuscular Volume 90.9 fL (83.0-100.0); Platelet Count 275 K/mcL (140-400); Red Blood Count 3.42 M/mcL (3.82-4.97); Segmented Neutrophils % 91.4 %
[2017-07-17 12:00] LABS: Lymphocytes # 0.4 K/mcL (0.6-4.6); Monocytes # 0.7 K/mcL (0.0-1.3); Monocytes % 3.8 %; Neutrophils # 15.5 K/mcL (1.6-8.9); Nucleated Red Blood Cells 0.5 /100 WBC (0)
[2017-07-17 12:05] LABS: Platelet Estimate Normal (Normal)
[2017-07-17 12:06] LABS: Anisocytosis 1+ (Not Present); Hypochromasia Present (Not Present)
[2017-07-18] MEDS: Ipratropium/Albuterol Neb 3 ML IH SCH ×5 (03:39→20:56)
[2017-07-18 03:59] LABS: Basophils % 0.1 %; Hemoglobin 7.7 g/dL (11.5-15.4)
[2017-07-18 04:01] LABS: Hematocrit 27.6 % (35.3-44.9); Immature Granulocytes % 1.5 % (0-4); Lymphocytes # 0.9 K/mcL (0.6-4.6); Lymphocytes % 5.2 %; Mean Corpuscular HGB Conc 27.9 g/dL (31.6-35.5); Mean Corpuscular Hemoglobin 25.3 pg (28.0-33.3); Mean Corpuscular Volume 90.8 fL (83.0-100.0); Mean Platelet Volume 9.9 fL (9.4-12.4); Monocytes # 1.2 K/mcL (0.0-1.3); Monocytes % 6.6 %; Neutrophils # 15.2 K/mcL (1.6-8.9); Nucleated Red Blood Cells 0.5 /100 WBC (0); Platelet Count 231 K/mcL (140-400); Red Blood Count 3.04 M/mcL (3.82-4.97); Red Cell Distribution Width 20.1 % (11.5-14.5); Segmented Neutrophils % 86.6 %
[2017-07-18 04:24] LABS: Anisocytosis 1+ (Not Present); Hypochromasia Present (Not Present); Platelet Estimate Normal (Normal)
[2017-07-18] MEDS: *HR* Metoprolol 5 MG/5 ML VIAL IVP SCH ×4 (06:13→23:23)
[2017-07-18] MEDS: *HR* Enoxaparin 40 MG/0.4 ML SYRINGE SQ SCH (06:13)
--- NOTE | 2017-07-18 07:04 | Pulmonology Progress Note ---
<Walter Interiano M - Last Filed: 07/18/17 08:47> Date of Encounter: 07/18/17 Objective PUL Vital signs: Last Vital Signs Temp 98.3 F 07/18/17 08:00 Pulse 79 07/18/17 06:00 Resp 20 07/18/17 08:04 BP 105/61 07/18/17 06:00 Pulse Ox 94 07/18/17 08:04 Results - Laboratory Findings CBC and BMP: 07/18/17 03:44 07/16/17 08:25 ABG ABG pH 7.40 pH Units (7.32-7.45) 07/15/17 04:50 ABG pCO2 81 mmHg (35-45) H* 07/15/17 04:50 ABG pO2 50 mmHg (85-104) L* 07/15/17 04:50 ABG O2 Saturation 82 % (95-98) L 07/15/17 04:50 PT/INR, D-dimer PT 15.5 Seconds (9.4-12.1) H 07/11/17 09:10 Abnormal lab findings: Abnormal lab results WBC 17.6 K/mcL (4.3-11.1) H 07/18/17 03:44 RBC 3.04 M/mcL (3.82-4.97) L 07/18/17 03:44 Hgb 7.7 g/dL (11.5-15.4) L 07/18/17 03:44 Hct 27.6 % (35.3-44.9) L 07/18/17 03:44 MCH 25.3 pg (28.0-33.3) L 07/18/17 03:44 MCHC 27.9 g/dL (31.6-35.5) L 07/18/17 03:44 RDW 20.1 % (11.5-14.5) H 07/18/17 03:44 Neutrophils # 15.2 K/mcL (1.6-8.9) H 07/18/17 03:44 Nucleated RBCs/100 WBC 0.5 /100 WBC (0) H 07/18/17 03:44 Large Platelets Present (Not Present) A 07/08/17 05:02 Polychromasia 1+ (Not Present) A 07/13/17 04:00 Hypochromasia Present (Not Present) A 07/18/17 03:44 Poikilocytosis 1+ (Not Present) A 07/15/17 03:10 Anisocytosis 1+ (Not Present) A 07/18/17 03:44 Microcytosis Present (Not Present) A 07/15/17 03:10 Macrocytosis Present (Not Present) A 07/13/17 04:00 Spherocytes 1+ (Not Present) A 07/13/17 04:00 Stomatocytes 1+ (Not Present) A 07/13/17 04:00 PT 15.5 Seconds (9.4-12.1) H 07/11/17 09:10 ABG pCO2 81 mmHg (35-45) H* 07/15/17 04:50 ABG pO2 50 mmHg (85-104) L* 07/15/17 04:50 ABG HCO3 50 mEq/L (21-27) H 07/15/17 04:50 ABG Total CO2 52 mEq/L (20-26) H 07/15/17 04:50 ABG O2 Saturation 82 % (95-98) L 07/15/17 04:50 ABG Base Excess 22 mEq/L (-2 to 3) H 07/15/17 04:50 VBG pCO2 80 mmHg (41-51) H* 07/14/17 17:15 VBG pO2 181 mmHg (25-50) H 07/14/17 17:15 VBG HCO3 48 mEq/L (21-27) H 07/14/17 17:15 Chloride 93 mEq/L (98-107) L 07/16/17 08:25 Carbon Dioxide > 45 mEq/L (23-29) H* 07/16/17 08:25 Creatinine 0.49 mg/dL (0.60-1.20) L 07/16/17 08:25 BUN/Creatinine Ratio 41 (6-26) H 07/16/17 08:25 Glucose 167 mg/dL (70-105) H 07/16/17 08:25 POC Glucose 233 (58-89) H 07/17/17 19:36 Venous Ioniz Calcium 1.02 mmol/L (1.15-1.35) L 07/16/17 08:45 B-Natriuretic Peptide 863 pg/mL (Less than 100) H 07/04/17 14:31 Pleural Appearance Bloody (Clear) A 07/12/17 08:47 - Microbiology Findings Microbiology Findings: Microbiology, Last 48 Hours 07/10/17 16:31 Blood Culture - Final Peripheral Venipuncture No growth. 07/10/17 16:31 Blood Culture - Final Peripheral Venipuncture No growth. - Clinical Findings Intake & Output: Intake & Output 07/17/17 07/18/17 07/18/17 23:59 07:59 15:59 Intake Total 450 / 450 Output Total 400 / 400 300 / 300 125 / 125 Balance 50 / 50 -300 / -300 -125 / -125 Weight 198.3 kg Consult Discharge Plan - Plan Instructions: Heart Failure (DC) Additional Instructions: Decrease fluid intake. Continue with Lasix 40 mg 3 times a day. Prednisone taper as follows: 40 mg daily for 4 days, 30 mg for 4 days, 20 mg for 4 days and 10 mg for 4 days. Complete 2 more days of cefdinir Referrals: Aleksey Huggins DO [Primary Care Provider] - Prescriptions: Cefdinir [Omnicef] 300 mg PO BID #4 capsule predniSONE [PredniSONE] 10 mg PO DAILY 16 Days tablet - Attending Attestation I examined this patient and my medical decision-making was reviewed with the Resident Physician. I agree with the documented findings, disposition and treatment plan as described except to the extent set forth below. Patient seen and examined. Labs, radiology, chart personally reviewed. 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 Patient is tolerating noninvasive ventilation and I am hoping with incentive spirometry and bronchodilators atelectasis.. She will need a follow-up images. Cardiovascular: stable and can be transferred to the floor. GI: Nutrition per dietary and GI prophylaxis per routine Heme: DVT prophylaxis per routine ID: Continue antibiotics and plan to de-escalation Renal; urine out put and renal funtion reviewed Endorcine: blood glucose is monitored Lines: all lines checked and no evidence of infections Skin: skin care to prevent pressure ulcers per nursing routine care <Aleksey Huggins - Last Filed: 07/18/17 11:02> Date of Encounter: 07/18/17 Time of Encounter: 07:31 Assessment and Plan (1) Acute respiratory failure with hypoxia and hypercapnia Current Visit: Yes Status: Acute Cont O2 via NC at requisite level; attempting to taper down to baseline level ( 5LPM at home) Encouraged and educated on use of IS Cont BiPAP as needed during day and necessarily at night Cont NAC schedule to q8h Cont IV Vanco due to C. striatum (07/12/17 from BAL) Follow WBC; 17.6k this AM Begin to taper steroids; converted to PO yesterday (on day 2 of taper) -- 40 mg daily for 4 days, 30 mg for 4 days, 20 mg for 4 days, and 10 mg for 4 days Negative fluid balance (-380) -- Cont IV Lasix and fluid restriction -- Monitor BMP in AM (2) Acute on chronic diastolic CHF (congestive heart failure) Current Visit: Yes Status: Acute Plans as above A-fib rate controlled with CCB (3) Atrial fibrillation Current Visit: Yes Status: Chronic Still dysrhythmic Rate controlled; CCB as above [id number] = 4; not on oral anticoagulant, suspect due to chronic anemia -- trending Hgb which is down overnight -- poor follow up; may need hospital consultation considering this fact Qualifiers: Atrial fibrillation type: paroxysmal Qualified Code(s): I48.0 - Paroxysmal atrial fibrillation (4) HCAP (healthcare-associated pneumonia) Current Visit: Yes Status: Acute RLL; has been on broad-spectrum antibiotics; de-escalate to IV Vancomycin due to isolated C. striatum -- Vancomycin day 7 -- Afebrile overnight -- Likely continue until day 10 (5) COPD (chronic obstructive pulmonary disease) Current Visit: Yes Status: Acute Mucus plug found on BAL; C. striatum isolated plans as above Qualifiers: COPD type: chronic bronchitis Chronic bronchitis type: mixed simple and mucopurulent Qualified Code(s): J41.8 - Mixed simple and mucopurulent chronic bronchitis (6) Lung collapse Current Visit: Yes Status: Acute L lung showed re-expansion on follow up XR after BAL (7) Anemia Current Visit: Yes Status: Acute 7.7 this AM; clinically stable Continue to follow hgb and monitor on telemetry Qualifiers: Anemia type: unspecified type Qualified Code(s): D64.9 - Anemia, unspecified (8) Morbid obesity with BMI of 60.0-69.9, adult Current Visit: Yes Status: Chronic Contributor to respiratory status PT saw and worked with patient 07/17/17 -- continue PT for duration of hospitalization -- Likely SNF disposition on discharge, supported by PT recommendations (9) Non-insulin dependent type 2 diabetes mellitus Current Visit: Yes Status: Chronic On diabetic diet Cont medium dose SSI Add basal insulin -- Detemir 10U HS (10) Decubitus ulcer Current Visit: Yes Status: Acute Low grade with no signs of infection -- approximately 1.5 x 1.5 cm; stable exam Cont to monitor, cont Nystatin for barrier, and encourage positional changes Consider wound care consult in subsequent days if any worsening noted on exam Care per nursing protocol Qualifiers: Pressure ulcer location: buttock Pressure ulcer stage: stage 1 Laterality : left Qualified Code(s): L89.321 - Pressure ulcer of left buttock, stage 1 (11) DVT prophylaxis Current Visit: Yes Status: Acute Sub Q Lovenox Subjective Principal diagnosis: Acute on chronic respiratory failure Interval history: Comfortable in bed with HOB elevated. Currently saturating high 90s on BiPAP; otherwise has been saturating low 90s on 15Lpm high flow via nasal cannula. Worked with PT yesterday; PT recommends ultimate SNF disposition. No fevers or overnight events. Pt comfortable at this time. Plan to transfer to other telemetry unit today. Objective PUL Vital signs: Last Vital Signs Temp 98.0 F 07/18/17 05:05 Pulse 79 07/18/17 06:00 Resp 20 07/18/17 06:00 BP 105/61 07/18/17 06:00 Pulse Ox 99 07/18/17 06:00 CONSTITUTIONAL: Alert and oriented X3, in no apparent distress HEAD: Normocephalic; atraumatic. EYES: PERRL, no scleral icterus, no drainage, no conjunctival injection NOSE: The nose is normal in appearance without rhinorrhea Oropharynx: pink/moist RESP: NRD without use of accessory musculature, CTA b/l with no wheezes/rales/ rhonchi CARD: distant heart sounds, irregular rhythm, without murmurs, rubs, or gallop ABD: soft, non-tender SKIN: stable decubitus erosion (stage 1 without change from prior exam) EXT: DP/Rad pulses 2+ and symmetrical; no lateralizing edema PSYCH: good mood/affect Results - Laboratory Findings CBC and BMP: 07/18/17 03:44 07/16/17 08:25 ABG ABG pH 7.40 pH Units (7.32-7.45) 07/15/17 04:50 ABG pCO2 81 mmHg (35-45) H* 07/15/17 04:50 ABG pO2 50 mmHg (85-104) L* 07/15/17 04:50 ABG O2 Saturation 82 % (95-98) L 07/15/17 04:50 PT/INR, D-dimer PT 15.5 Seconds (9.4-12.1) H 07/11/17 09:10 Abnormal lab findings: Abnormal lab results WBC 17.6 K/mcL (4.3-11.1) H 07/18/17 03:44 RBC 3.04 M/mcL (3.82-4.97) L 07/18/17 03:44 Hgb 7.7 g/dL (11.5-15.4) L 07/18/17 03:44 Hct 27.6 % (35.3-44.9) L 07/18/17 03:44 MCH 25.3 pg (28.0-33.3) L 07/18/17 03:44 MCHC 27.9 g/dL (31.6-35.5) L 07/18/17 03:44 RDW 20.1 % (11.5-14.5) H 07/18/17 03:44 Neutrophils # 15.2 K/mcL (1.6-8.9) H 07/18/17 03:44 Nucleated RBCs/100 WBC 0.5 /100 WBC (0) H 07/18/17 03:44 Large Platelets Present (Not Present) A 07/08/17 05:02 Polychromasia 1+ (Not Present) A 07/13/17 04:00 Hypochromasia Present (Not Present) A 07/18/17 03:44 Poikilocytosis 1+ (Not Present) A 07/15/17 03:10 Anisocytosis 1+ (Not Present) A 07/18/17 03:44 Microcytosis Present (Not Present) A 07/15/17 03:10 Macrocytosis Present (Not Present) A 07/13/17 04:00 Spherocytes 1+ (Not Present) A 07/13/17 04:00 Stomatocytes 1+ (Not Present) A 07/13/17 04:00 PT 15.5 Seconds (9.4-12.1) H 07/11/17 09:10 ABG pCO2 81 mmHg (35-45) H* 07/15/17 04:50 ABG pO2 50 mmHg (85-104) L* 07/15/17 04:50 ABG HCO3 50 mEq/L (21-27) H 07/15/17 04:50 ABG Total CO2 52 mEq/L (20-26) H 07/15/17 04:50 ABG O2 Saturation 82 % (95-98) L 07/15/17 04:50 ABG Base Excess 22 mEq/L (-2 to 3) H 07/15/17 04:50 VBG pCO2 80 mmHg (41-51) H* 07/14/17 17:15 VBG pO2 181 mmHg (25-50) H 07/14/17 17:15 VBG HCO3 48 mEq/L (21-27) H 07/14/17 17:15 Chloride 93 mEq/L (98-107) L 07/16/17 08:25 Carbon Dioxide > 45 mEq/L (23-29) H* 07/16/17 08:25 Creatinine 0.49 mg/dL (0.60-1.20) L 07/16/17 08:25 BUN/Creatinine Ratio 41 (6-26) H 07/16/17 08:25 Glucose 167 mg/dL (70-105) H 07/16/17 08:25 POC Glucose 233 (58-89) H 07/17/17 19:36 Venous Ioniz Calcium 1.02 mmol/L (1.15-1.35) L 07/16/17 08:45 B-Natriuretic Peptide 863 pg/mL (Less than 100) H 07/04/17 14:31 Pleural Appearance Bloody (Clear) A 07/12/17 08:47 - Microbiology Findings Microbiology Findings: Microbiology, Last 48 Hours 07/10/17 16:31 Blood Culture - Final Peripheral Venipuncture No growth. 07/10/17 16:31 Blood Culture - Final Peripheral Venipuncture No growth. - Clinical Findings Intake & Output: Intake & Output 07/17/17 07/17/17 07/18/17 15:59 23:59 07:59 Intake Total 250 / 250 450 / 450 Output Total 800 / 800 400 / 400 300 / 300 Balance -550 / -550 50 / 50 -300 / -300 Weight 198.3 kg
[2017-07-18] MEDS: Insulin LISPRO 300 UNITS/3 ML VIAL SQ SCH ×4 (07:55→20:00)
[2017-07-18] MEDS: Furosemide 40 MG/4 ML VIAL IVP SCH ×2 (07:56→19:59)
[2017-07-18] MEDS: Diltiazem CD (24hr) 180 MG CAPSULE PO SCH (07:56)
[2017-07-18] MEDS: Aspirin 325 MG TABLET PO SCH (07:57)
[2017-07-18] MEDS: Nicotine 14 MG PATCH.TD24 TD SCH (07:57)
[2017-07-18] MEDS: predniSONE 20 MG TABLET PO SCH (07:57)
[2017-07-18] MEDS: Nystatin POWDER 30 GM BOTTLE TP SCH ×2 (07:58→20:01)
[2017-07-18] MEDS: Acetylcysteine 10% 2 ML INHSOL IH SCH ×2 (08:03→15:32)
[2017-07-18] MEDS ORDERED: predniSONE 20 MG TABLET PO SCH (09:00)
[2017-07-19] MEDS: Acetylcysteine 10% 2 ML INHSOL IH SCH ×4 (00:14→23:01)
[2017-07-19] MEDS: Ipratropium/Albuterol Neb 3 ML IH SCH ×8 (00:14→23:00)
[2017-07-19] MEDS: *HR* Metoprolol 5 MG/5 ML VIAL IVP SCH ×4 (00:26→17:53)
[2017-07-19] MEDS: *HR* Enoxaparin 40 MG/0.4 ML SYRINGE SQ SCH (05:14)
--- NOTE | 2017-07-19 07:38 | Pulmonology Progress Note ---
<Walter Interiano M - Last Filed: 07/19/17 07:42> Date of Encounter: 07/19/17 Objective PUL Vital signs: Last Vital Signs Temp 98.3 F 07/19/17 03:21 Pulse 69 07/19/17 03:33 Resp 24 07/19/17 03:52 BP 106/68 07/19/17 03:52 Pulse Ox 95 07/19/17 03:52 Results - Laboratory Findings CBC and BMP: 07/18/17 03:44 07/16/17 08:25 ABG ABG pH 7.40 pH Units (7.32-7.45) 07/15/17 04:50 ABG pCO2 81 mmHg (35-45) H* 07/15/17 04:50 ABG pO2 50 mmHg (85-104) L* 07/15/17 04:50 ABG O2 Saturation 82 % (95-98) L 07/15/17 04:50 PT/INR, D-dimer PT 15.5 Seconds (9.4-12.1) H 07/11/17 09:10 Abnormal lab findings: Abnormal lab results WBC 17.6 K/mcL (4.3-11.1) H 07/18/17 03:44 RBC 3.04 M/mcL (3.82-4.97) L 07/18/17 03:44 Hgb 7.7 g/dL (11.5-15.4) L 07/18/17 03:44 Hct 27.6 % (35.3-44.9) L 07/18/17 03:44 MCH 25.3 pg (28.0-33.3) L 07/18/17 03:44 MCHC 27.9 g/dL (31.6-35.5) L 07/18/17 03:44 RDW 20.1 % (11.5-14.5) H 07/18/17 03:44 Neutrophils # 15.2 K/mcL (1.6-8.9) H 07/18/17 03:44 Nucleated RBCs/100 WBC 0.5 /100 WBC (0) H 07/18/17 03:44 Large Platelets Present (Not Present) A 07/08/17 05:02 Polychromasia 1+ (Not Present) A 07/13/17 04:00 Hypochromasia Present (Not Present) A 07/18/17 03:44 Poikilocytosis 1+ (Not Present) A 07/15/17 03:10 Anisocytosis 1+ (Not Present) A 07/18/17 03:44 Microcytosis Present (Not Present) A 07/15/17 03:10 Macrocytosis Present (Not Present) A 07/13/17 04:00 Spherocytes 1+ (Not Present) A 07/13/17 04:00 Stomatocytes 1+ (Not Present) A 07/13/17 04:00 PT 15.5 Seconds (9.4-12.1) H 07/11/17 09:10 ABG pCO2 81 mmHg (35-45) H* 07/15/17 04:50 ABG pO2 50 mmHg (85-104) L* 07/15/17 04:50 ABG HCO3 50 mEq/L (21-27) H 07/15/17 04:50 ABG Total CO2 52 mEq/L (20-26) H 07/15/17 04:50 ABG O2 Saturation 82 % (95-98) L 07/15/17 04:50 ABG Base Excess 22 mEq/L (-2 to 3) H 07/15/17 04:50 VBG pCO2 80 mmHg (41-51) H* 07/14/17 17:15 VBG pO2 181 mmHg (25-50) H 07/14/17 17:15 VBG HCO3 48 mEq/L (21-27) H 07/14/17 17:15 Chloride 93 mEq/L (98-107) L 07/16/17 08:25 Carbon Dioxide > 45 mEq/L (23-29) H* 07/16/17 08:25 Creatinine 0.49 mg/dL (0.60-1.20) L 07/16/17 08:25 BUN/Creatinine Ratio 41 (6-26) H 07/16/17 08:25 Glucose 167 mg/dL (70-105) H 07/16/17 08:25 POC Glucose 242 (58-89) H 07/18/17 18:43 Venous Ioniz Calcium 1.02 mmol/L (1.15-1.35) L 07/16/17 08:45 B-Natriuretic Peptide 863 pg/mL (Less than 100) H 07/04/17 14:31 Pleural Appearance Bloody (Clear) A 07/12/17 08:47 - Clinical Findings Intake & Output: Intake & Output 07/18/17 07/18/17 07/19/17 15:59 23:59 07:59 Intake Total 250 / 250 250 / 250 Output Total 1225 / 1225 1925 / 1925 100 / 100 Balance -1225 / -1225 -1675 / -1675 150 / 150 Weight 194 kg Consult Discharge Plan - Plan Instructions: Heart Failure (DC) Additional Instructions: Decrease fluid intake. Continue with Lasix 40 mg 3 times a day. Prednisone taper as follows: 40 mg daily for 4 days, 30 mg for 4 days, 20 mg for 4 days and 10 mg for 4 days. Complete 2 more days of cefdinir Referrals: Aleksey Huggins DO [Primary Care Provider] - Prescriptions: Cefdinir [Omnicef] 300 mg PO BID #4 capsule predniSONE [PredniSONE] 10 mg PO DAILY 16 Days tablet - Attending Attestation I examined this patient and my medical decision-making was reviewed with the Resident Physician. I agree with the documented findings, disposition and treatment plan as described except to the extent set forth below. Patient seen and examined. Labs, radiology, chart personally reviewed. 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 Patient is tolerating noninvasive ventilation. Continue incentive spirometry and need follow-up images. Cardiovascular: stable GI: Nutrition per dietary and GI prophylaxis per routine Heme: DVT prophylaxis per routine ID: Continue antibiotics and plan to de-escalation Renal; urine out put and renal funtion reviewed Endorcine: blood glucose is monitored Lines: all lines checked and no evidence of infections Skin: skin care to prevent pressure ulcers per nursing routine care Patient is still awaiting to be transferred to the floor. <Aleksey Huggins - Last Filed: 07/19/17 11:55> Date of Encounter: 07/19/17 Time of Encounter: 07:38 Assessment and Plan (1) Acute respiratory failure with hypoxia and hypercapnia Current Visit: Yes Status: Acute Cont O2 via NC at requisite level; attempting to taper down to baseline level ( 5LPM at home) Encouraged and educated on use of IS Cont BiPAP as needed during day and necessarily at night Cont NAC schedule to q8h Complete course of IV Vanco (today is day 10 of 10) Follow WBC; pending Tapering steroids; (on day 3 of taper) -- 40 mg daily for 4 days, 30 mg for 4 days, 20 mg for 4 days, and 10 mg for 4 days Negative fluid balance (-2950) -- Cont IV Lasix and fluid restriction -- Monitor BMP in qAM (2) Acute on chronic diastolic CHF (congestive heart failure) Current Visit: Yes Status: Acute Plans as above no signs of volume overload negative fluid balance; unclear if charting of PO intake is fully accurate as patient is requesting for fluid restriction to be loosened (3) Atrial fibrillation Current Visit: Yes Status: Chronic Still dysrhythmic Rate controlled; CCB as above [id number] = 4; not on oral anticoagulant, suspect due to chronic anemia -- trending Hgb which is down overnight; will likely need to see this controlled or stabilized before consideration of anticoag tx -- poor follow up; may need hospital consultation Qualifiers: Atrial fibrillation type: paroxysmal Qualified Code(s): I48.0 - Paroxysmal atrial fibrillation (4) HCAP (healthcare-associated pneumonia) Current Visit: Yes Status: Acute RLL; has been on broad-spectrum antibiotics; de-escalate to IV Vancomycin due to isolated C. striatum -- Vancomycin day 10 -- Afebrile overnight -- Stable respiratory status (5) COPD (chronic obstructive pulmonary disease) Current Visit: Yes Status: Acute Mucus plug found on BAL; C. striatum isolated plans as above Qualifiers: COPD type: chronic bronchitis Chronic bronchitis type: mixed simple and mucopurulent Qualified Code(s): J41.8 - Mixed simple and mucopurulent chronic bronchitis (6) Lung collapse Current Visit: Yes Status: Acute L lung showed re-expansion on follow up XR after BAL (7) Anemia Current Visit: Yes Status: Acute 7.7 this AM; clinically stable Continue to follow hgb and monitor on telemetry CBC pending Qualifiers: Anemia type: unspecified type Qualified Code(s): D64.9 - Anemia, unspecified (8) Morbid obesity with BMI of 60.0-69.9, adult Current Visit: Yes Status: Chronic Contributor to respiratory status PT saw and worked with patient 07/17/17 -- continue PT for duration of hospitalization -- Likely SNF disposition on discharge, supported by PT recommendations (9) Non-insulin dependent type 2 diabetes mellitus Current Visit: Yes Status: Chronic On diabetic diet Cont medium dose SSI Add basal insulin -- Detemir 10U HS (10) Decubitus ulcer Current Visit: Yes Status: Acute Low grade with no signs of infection -- approximately 1.5 x 1.0 cm; stable exam Cont to monitor, cont Nystatin for barrier, and encourage positional changes Consider wound care consult in subsequent days if any worsening noted on exam Care per nursing protocol Qualifiers: Pressure ulcer location: buttock Pressure ulcer stage: stage 1 Laterality : left Qualified Code(s): L89.321 - Pressure ulcer of left buttock, stage 1 (11) Urinary incontinence Current Visit: Yes Status: Acute Patient is receiving Lasix for dCHF and has negative fluid balance Has been catheterized for strict I/O monitoring Attempted removal of Villagomez last PM resulting in incontinence; Villagomez was soon replaced -- patient is presently immobile due to habitus and deconditioning; PT is working with patient and expects her to be ambulatory in next few days Catheter is having some dysfunction with retention that is not otherwise present ; nursing notes occasional obstructive clots, but otherwise normal colored urine Spoke with Urology (Dr. Mariano) who does not feel patient has true retention or pathologic hematuria -- incontinence attributed to bladder spasm and clots attributed to traumatic recatheterization -- requests call for formal consult if any gross hematuria or persistent urinary discoloration is present Qualifiers: Urinary Incontinence type: unspecified incontinence Qualified Code(s): R32 - Unspecified urinary incontinence (12) DVT prophylaxis Current Visit: Yes Status: Acute Sub Q Lovenox; cont at current dose despite weight due to recent low hgb Subjective Principal diagnosis: Acute on chronic respiratory failure Interval history: Comfortable in bed with HOB elevated. Currently saturating high 90s on BiPAP; otherwise has been saturating low 90s on 15Lpm high flow via nasal cannula. Villagomez removed prior PM and subsequently replaced. Pt subjectively feeling better; states continues sputum production which is appearing thinner. Desires increase in fluid intake allowance. No other acute concerns per patient or staff at this time. Pending transfer to step down unit. Objective PUL Vital signs: Last Vital Signs Temp 98.3 F 07/19/17 03:21 Pulse 69 07/19/17 03:33 Resp 24 07/19/17 03:52 BP 106/68 07/19/17 03:52 Pulse Ox 95 07/19/17 03:52 CONSTITUTIONAL: Alert and oriented X3, well-nourished, well appearing, in no apparent distress HEAD: Normocephalic; atraumatic. EYES: PERRL, no scleral icterus, no drainage, no conjunctival injection, no conjunctival pallor NOSE: The nose is normal in appearance without rhinorrhea Oropharynx: pink/moist RESP: NRD without use of accessory musculature, speaks full sentences without dyspneic interruption, does desaturate (high 80s) with physical effort (rolling) , CTA b/l with no wheezes/rales/rhonchi CARD: normal rate, irregular rhythm; no murmurs, rubs, or gallop ABD: grossly normal, soft, non-tender : villagomez catheter in place SKIN: no pallor/diaphoresis,mottling,jaundice,cyanosis; small unchanged skin abrasion near left gluteal fold (stage 1 ulcer without signs of infection -- 1.5 cm x 1 cm) EXT: Rad pulses 2+ and symmetrical; no lateralizing edema; no other lesions seen PSYCH: appropriate mood/affect Results - Laboratory Findings CBC and BMP: 07/19/17 08:15 07/19/17 08:15 ABG ABG pH 7.40 pH Units (7.32-7.45) 07/15/17 04:50 ABG pCO2 81 mmHg (35-45) H* 07/15/17 04:50 ABG pO2 50 mmHg (85-104) L* 07/15/17 04:50 ABG O2 Saturation 82 % (95-98) L 07/15/17 04:50 PT/INR, D-dimer PT 15.5 Seconds (9.4-12.1) H 07/11/17 09:10 Abnormal lab findings: Abnormal lab results WBC 17.6 K/mcL (4.3-11.1) H 07/18/17 03:44 RBC 3.04 M/mcL (3.82-4.97) L 07/18/17 03:44 Hgb 7.7 g/dL (11.5-15.4) L 07/18/17 03:44 Hct 27.6 % (35.3-44.9) L 07/18/17 03:44 MCH 25.3 pg (28.0-33.3) L 07/18/17 03:44 MCHC 27.9 g/dL (31.6-35.5) L 07/18/17 03:44 RDW 20.1 % (11.5-14.5) H 07/18/17 03:44 Neutrophils # 15.2 K/mcL (1.6-8.9) H 07/18/17 03:44 Nucleated RBCs/100 WBC 0.5 /100 WBC (0) H 07/18/17 03:44 Large Platelets Present (Not Present) A 07/08/17 05:02 Polychromasia 1+ (Not Present) A 07/13/17 04:00 Hypochromasia Present (Not Present) A 07/18/17 03:44 Poikilocytosis 1+ (Not Present) A 07/15/17 03:10 Anisocytosis 1+ (Not Present) A 07/18/17 03:44 Microcytosis Present (Not Present) A 07/15/17 03:10 Macrocytosis Present (Not Present) A 07/13/17 04:00 Spherocytes 1+ (Not Present) A 07/13/17 04:00 Stomatocytes 1+ (Not Present) A 07/13/17 04:00 PT 15.5 Seconds (9.4-12.1) H 07/11/17 09:10 ABG pCO2 81 mmHg (35-45) H* 07/15/17 04:50 ABG pO2 50 mmHg (85-104) L* 07/15/17 04:50 ABG HCO3 50 mEq/L (21-27) H 07/15/17 04:50 ABG Total CO2 52 mEq/L (20-26) H 07/15/17 04:50 ABG O2 Saturation 82 % (95-98) L 07/15/17 04:50 ABG Base Excess 22 mEq/L (-2 to 3) H 07/15/17 04:50 VBG pCO2 80 mmHg (41-51) H* 07/14/17 17:15 VBG pO2 181 mmHg (25-50) H 07/14/17 17:15 VBG HCO3 48 mEq/L (21-27) H 07/14/17 17:15 Chloride 93 mEq/L (98-107) L 07/16/17 08:25 Carbon Dioxide > 45 mEq/L (23-29) H* 07/16/17 08:25 Creatinine 0.49 mg/dL (0.60-1.20) L 07/16/17 08:25 BUN/Creatinine Ratio 41 (6-26) H 07/16/17 08:25 Glucose 167 mg/dL (70-105) H 07/16/17 08:25 POC Glucose 242 (58-89) H 07/18/17 18:43 Venous Ioniz Calcium 1.02 mmol/L (1.15-1.35) L 07/16/17 08:45 B-Natriuretic Peptide 863 pg/mL (Less than 100) H 07/04/17 14:31 Pleural Appearance Bloody (Clear) A 07/12/17 08:47 - Clinical Findings Intake & Output: Intake & Output 07/18/17 07/18/17 07/19/17 15:59 23:59 07:59 Intake Total 250 / 250 250 / 250 Output Total 1225 / 1225 1925 / 1925 100 / 100 Balance -1225 / -1225 -1675 / -1675 150 / 150 Weight 194 kg - VTE Documentation of Mechanical Device: Intermittent pneumatic compression device
[2017-07-19] MEDS: Insulin LISPRO 300 UNITS/3 ML VIAL SQ SCH ×4 (08:21→21:35)
[2017-07-19] MEDS: Diltiazem CD (24hr) 180 MG CAPSULE PO SCH (08:24)
[2017-07-19] MEDS: Aspirin 325 MG TABLET PO SCH (08:24)
[2017-07-19] MEDS: predniSONE 20 MG TABLET PO SCH (08:25)
[2017-07-19] MEDS: Nicotine 14 MG PATCH.TD24 TD SCH (08:25)
[2017-07-19] MEDS: Furosemide 40 MG/4 ML VIAL IVP SCH ×2 (08:25→21:37)
[2017-07-19] MEDS: Nystatin POWDER 30 GM BOTTLE TP SCH ×2 (08:27→21:37)
[2017-07-19 09:22] LABS: Basophils % 0.1 %; Eosinophils % 0.4 %; Hemoglobin 7.9 g/dL (11.5-15.4); Nucleated Red Blood Cells 0.5 /100 WBC (0)
[2017-07-19 09:25] LABS: Eosinophils # 0.1 K/mcL (0.0-0.6); Hematocrit 29.5 % (35.3-44.9); Immature Granulocytes % 1.7 % (0-4); Lymphocytes # 1.9 K/mcL (0.6-4.6); Lymphocytes % 11.3 %; Mean Corpuscular HGB Conc 26.8 g/dL (31.6-35.5); Mean Corpuscular Volume 93.4 fL (83.0-100.0); Mean Platelet Volume 10.8 fL (9.4-12.4); Monocytes # 1.2 K/mcL (0.0-1.3); Neutrophils # 13.4 K/mcL (1.6-8.9); Platelet Count 227 K/mcL (140-400); Red Blood Count 3.16 M/mcL (3.82-4.97); Red Cell Distribution Width 20.5 % (11.5-14.5); Segmented Neutrophils % 79.5 %
[2017-07-19 09:51] LABS: BUN/Creatinine Ratio 51 (6-26); Blood Urea Nitrogen 22 mg/dL (6-20); Carbon Dioxide > 45 mEq/L (23-29); Chloride 96 mEq/L (98-107); Glucose 103 mg/dL (70-105); Osmolality,Calculated 310 (280-300); Potassium 3.2 mEq/L (3.5-5.1); Sodium 148 mEq/L (136-145); eGFR For African Americans > 60 (> 60); eGFR For Non-African Americans > 60 (> 60)
[2017-07-19 10:47] LABS: Anisocytosis 1+ (Not Present); Hypochromasia Present (Not Present); Platelet Estimate Normal (Normal); Polychromasia 1+ (Not Present)
[2017-07-19 11:02] LABS: Calcium 8.4 mg/dL (8.6-10.3)
--- NOTE | 2017-07-19 13:42 | Internal Med Progress Note ---
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 CT chest showed: 1. No acute pulmonary artery embolism. 2. Indeterminate endobronchial foci within the distal left mainstem bronchus and origin to the right middle lobe with associated dense regions of consolidation and volume loss. 3. Bilateral pleural effusions with right basilar atelectasis or developing infection. (2) Acute on chronic diastolic CHF (congestive heart failure) Current Visit: Yes Status: Acute (3) Atrial fibrillation Current Visit: Yes Status: Chronic Assessment and plan: Still dysrhythmic Rate controlled; CCB as above [id number] = 4; not on oral anticoagulant, suspect due to chronic anemia -- trending Hgb which is down overnight; will likely need to see this controlled or stabilized before consideration of anticoag tx -- poor follow up Qualifiers: Atrial fibrillation type: paroxysmal Qualified Code(s): I48.0 - Paroxysmal atrial fibrillation (4) HCAP (healthcare-associated pneumonia) Current Visit: Yes Status: Acute (5) COPD (chronic obstructive pulmonary disease) Current Visit: Yes Status: Acute Assessment and plan: Steroids Qualifiers: COPD type: chronic bronchitis Chronic bronchitis type: mixed simple and mucopurulent Qualified Code(s): J41.8 - Mixed simple and mucopurulent chronic bronchitis (6) Lung collapse Current Visit: Yes Status: Acute (7) Anemia Current Visit: Yes Status: Acute Assessment and plan: Stable Qualifiers: Anemia type: unspecified type Qualified Code(s): D64.9 - Anemia, unspecified (8) Morbid obesity with BMI of 60.0-69.9, adult Current Visit: Yes Status: Chronic (9) Non-insulin dependent type 2 diabetes mellitus Current Visit: Yes Status: Chronic Assessment and plan: Insulin sliding scale Levemir 10 units (10) Decubitus ulcer Current Visit: Yes Status: Acute Assessment and plan: LoLow grade with no signs of infection -- approximately 1.5 x 1.0 cm; stable exam Cont to monitor, cont Nystatin for barrier, and encourage positional changes Consider wound care consultw grade with no signs of infection -- approximately 1.5 x 1.0 cm; stable exam Cont to monitor, cont Nystatin for barrier, and encourage positional changes Consider wound care consulted Qualifiers: Pressure ulcer location: buttock Pressure ulcer stage: stage 1 Laterality : left Qualified Code(s): L89.321 - Pressure ulcer of left buttock, stage 1 (11) Urinary incontinence Current Visit: Yes Status: Acute Assessment and plan: ncontinence attributed to bladder spasm and clots attributed to traumatic recatheterization. Needs Urology follow up as outpatient, formal consult if any gross hematuria or persistent urinary discoloration is present Qualifiers: Urinary Incontinence type: unspecified incontinence Qualified Code(s): R32 - Unspecified urinary incontinence (12) DVT prophylaxis Current Visit: Yes Status: Acute Assessment and plan: lovenox - Subjective Interval history: Feeling less short of breath, coughing and bringing up less phlegm, not complaining of chills anymore, fevers recorded, no abdominal pain, no diarrhea or dysuria. No chest pain - Constitutional Vitals: Temp Pulse Resp BP Pulse Ox 97.9 F 83 22 91/79 93 07/19/17 08:00 07/19/17 10:52 07/19/17 08:00 07/19/17 08:00 07/19/17 08:00 General appearance: Present: A&O X 3, morbidly obese, no acute distress, answers questions appropriately - Head Head exam: Present: atraumatic, normocephalic - Eye Eye exam: Present: PERRL, conjuntiva pink, sclera anicteric Pupils: Present: PERRL - Neck Neck exam general surgery: Present: supple, trachea midline. Absent: lymphadenopathy - Respiratory Respiratory exam: Present: CTAB, rales (right basilar crackles). Absent: accessory muscle use, rhonchi, wheezes - Cardiovascular Cardiovascular exam: Present: RRR, +S1, +S2. Absent: diastolic murmur, gallop, rubs, systolic murmur - GI/Abdominal GI/Abdominal exam: Present: distended, normal bowel sounds, soft, no peritoneal signs. Absent: tenderness - Extremities Exam Extremities exam: Present: pedal edema (+3 pitting edema improving in both lower extremities), warm, radial pulses palpable and symmetrical. Absent: calf tenderness, cyanotic - Neurological Exam Neurological exam: Present: CN II-XII intact, oriented X3, no focal deficits. Absent: pronater drift, facial droop, speech deficit - Skin Skin exam: Present: dry, intact Internal Medicine: Result - Labs CBC & Chem 7: 07/19/17 08:15 07/19/17 08:15 Labs: Short CBC 07/19/17 Range/Units 08:15 WBC 16.8 H (4.3-11.1) K/mcL Hgb 7.9 L (11.5-15.4) g/dL Hct 29.5 L (35.3-44.9) % Plt Count 227 (140-400) K/mcL Neutrophils # 13.4 H (1.6-8.9) K/mcL BMP 07/19/17 08:15 Sodium 148 H Potassium 3.2 L Chloride 96 L Carbon Dioxide > 45 H* BUN 22 H Creatinine 0.43 L Glucose 103 Calcium 8.4 L - ABG Interpretation ABG results: ABG ABG pH 7.40 pH Units (7.32-7.45) 07/15/17 04:50 ABG pCO2 81 mmHg (35-45) H* 07/15/17 04:50 ABG pO2 50 mmHg (85-104) L* 07/15/17 04:50 ABG O2 Saturation 82 % (95-98) L 07/15/17 04:50 PT/INR, D-dimer PT 15.5 Seconds (9.4-12.1) H 07/11/17 09:10 - VTE Documentation of Mechanical Device: Intermittent pneumatic compression device Consult Discharge Plan - Plan Instructions: Heart Failure (DC) Additional Instructions: Decrease fluid intake. Continue with Lasix 40 mg 3 times a day. Prednisone taper as follows: 40 mg daily for 4 days, 30 mg for 4 days, 20 mg for 4 days and 10 mg for 4 days. Complete 2 more days of cefdinir Referrals: Aleksey Huggins DO [Primary Care Provider] - Prescriptions: Cefdinir [Omnicef] 300 mg PO BID #4 capsule predniSONE [PredniSONE] 10 mg PO DAILY 16 Days tablet
[2017-07-19] MEDS: Lactulose Oral Soln 20 GM/30 ML UDC PO SCH ×2 (16:59→17:53)
[2017-07-19] MEDS ORDERED: D5% in Water 1,000 ML IVC PRN (19:59)
[2017-07-19] MEDS ORDERED: *HR* Dextrose 50 % in Water (Syg) 50 ML SYRINGE IVP PRN (19:59)
[2017-07-19] MEDS ORDERED: Acetaminophen 325 MG TABLET PO PRN (19:59)
[2017-07-19] MEDS ORDERED: Dextrose Gel 15 GM/37.5 ML TUBE PO PRN ×2 (19:59)
[2017-07-19] MEDS ORDERED: Melatonin 3 MG TABLET PO PRN (19:59)
[2017-07-19] MEDS ORDERED: Insulin DETEMIR 100 UNIT/ML X5UNITS SQ SCH (21:00)
[2017-07-19] MEDS: Insulin DETEMIR 100 UNIT/ML X5UNITS SQ SCH ×2 (21:34→21:42)
[2017-07-20] MEDS: Ipratropium/Albuterol Neb 3 ML IH SCH ×6 (03:35→23:16)
[2017-07-20] MEDS: *HR* Metoprolol 5 MG/5 ML VIAL IVP SCH ×2 (05:38)
[2017-07-20] MEDS: *HR* Enoxaparin 40 MG/0.4 ML SYRINGE SQ SCH (05:38)
--- NOTE | 2017-07-20 08:11 | Pulmonology Progress Note ---
<Walter Interiano M - Last Filed: 07/20/17 09:40> Date of Encounter: 07/20/17 Objective PUL Vital signs: Last Vital Signs Temp 98.7 F 07/20/17 09:17 Pulse 67 07/20/17 08:00 Resp 21 07/20/17 07:06 BP 111/69 07/20/17 00:00 Pulse Ox 96 07/20/17 07:06 Results - Laboratory Findings CBC and BMP: 07/20/17 09:00 07/19/17 08:15 ABG ABG pH 7.40 pH Units (7.32-7.45) 07/15/17 04:50 ABG pCO2 81 mmHg (35-45) H* 07/15/17 04:50 ABG pO2 50 mmHg (85-104) L* 07/15/17 04:50 ABG O2 Saturation 82 % (95-98) L 07/15/17 04:50 PT/INR, D-dimer PT 15.5 Seconds (9.4-12.1) H 07/11/17 09:10 Abnormal lab findings: Abnormal lab results WBC 15.2 K/mcL (4.3-11.1) H 07/20/17 09:00 RBC 3.08 M/mcL (3.82-4.97) L 07/20/17 09:00 Hgb 7.7 g/dL (11.5-15.4) L 07/20/17 09:00 Hct 28.3 % (35.3-44.9) L 07/20/17 09:00 MCH 25.0 pg (28.0-33.3) L 07/20/17 09:00 MCHC 27.2 g/dL (31.6-35.5) L 07/20/17 09:00 RDW 20.8 % (11.5-14.5) H 07/20/17 09:00 Neutrophils # 11.8 K/mcL (1.6-8.9) H 07/20/17 09:00 Nucleated RBCs/100 WBC 0.5 /100 WBC (0) H 07/20/17 09:00 Large Platelets Present (Not Present) A 07/08/17 05:02 Polychromasia 1+ (Not Present) A 07/19/17 08:15 Hypochromasia Present (Not Present) A 07/20/17 09:00 Poikilocytosis 1+ (Not Present) A 07/15/17 03:10 Anisocytosis 1+ (Not Present) A 07/20/17 09:00 Microcytosis Present (Not Present) A 07/15/17 03:10 Macrocytosis Present (Not Present) A 07/13/17 04:00 Spherocytes 1+ (Not Present) A 07/13/17 04:00 Stomatocytes 1+ (Not Present) A 07/13/17 04:00 PT 15.5 Seconds (9.4-12.1) H 07/11/17 09:10 ABG pCO2 81 mmHg (35-45) H* 07/15/17 04:50 ABG pO2 50 mmHg (85-104) L* 07/15/17 04:50 ABG HCO3 50 mEq/L (21-27) H 07/15/17 04:50 ABG Total CO2 52 mEq/L (20-26) H 07/15/17 04:50 ABG O2 Saturation 82 % (95-98) L 07/15/17 04:50 ABG Base Excess 22 mEq/L (-2 to 3) H 07/15/17 04:50 VBG pCO2 80 mmHg (41-51) H* 07/14/17 17:15 VBG pO2 181 mmHg (25-50) H 07/14/17 17:15 VBG HCO3 48 mEq/L (21-27) H 07/14/17 17:15 Sodium 148 mEq/L (136-145) H 07/19/17 08:15 Potassium 3.2 mEq/L (3.5-5.1) L 07/19/17 08:15 Chloride 96 mEq/L (98-107) L 07/19/17 08:15 Carbon Dioxide > 45 mEq/L (23-29) H* 07/19/17 08:15 BUN 22 mg/dL (6-20) H 07/19/17 08:15 Creatinine 0.43 mg/dL (0.60-1.20) L 07/19/17 08:15 BUN/Creatinine Ratio 51 (6-26) H 07/19/17 08:15 POC Glucose 248 (58-89) H 07/19/17 19:11 Calculated Osmolality 310 (280-300) H 07/19/17 08:15 Calcium 8.4 mg/dL (8.6-10.3) L 07/19/17 08:15 Venous Ioniz Calcium 1.02 mmol/L (1.15-1.35) L 07/16/17 08:45 B-Natriuretic Peptide 863 pg/mL (Less than 100) H 07/04/17 14:31 Pleural Appearance Bloody (Clear) A 07/12/17 08:47 - Clinical Findings Intake & Output: Intake & Output 07/19/17 07/20/17 07/20/17 23:59 07:59 15:59 Intake Total 1210 / 1210 360 / 360 Output Total 1900 / 1900 850 / 850 Balance -690 / -690 -490 / -490 Weight 190.9 kg Consult Discharge Plan - Plan Instructions: Heart Failure (DC) Additional Instructions: Decrease fluid intake. Continue with Lasix 40 mg 3 times a day. Prednisone taper as follows: 40 mg daily for 4 days, 30 mg for 4 days, 20 mg for 4 days and 10 mg for 4 days. Complete 2 more days of cefdinir Referrals: Aleksey Huggins DO [Primary Care Provider] - Prescriptions: Cefdinir [Omnicef] 300 mg PO BID #4 capsule predniSONE [PredniSONE] 10 mg PO DAILY 16 Days tablet - Attending Attestation I examined this patient and my medical decision-making was reviewed with the Resident Physician. I agree with the documented findings, disposition and treatment plan as described except to the extent set forth below. Patient seen and examined. Labs, radiology, chart personally reviewed. Agree with resident's history and physical, assessment, plan with following comments: SAFETY AND HEALTH CONSULTANT: Patient follows commands, Pulmonary: Acceptable oxygenation and ventilation. Patient is doing better and to continue treatment with bronchodilators and repeat image to check on the progress and noninvasive ventilation and also physical therapy. Cardiovascular: stable GI: Nutrition per dietary and GI prophylaxis per routine Heme: DVT prophylaxis per routine ID: Continue antibiotics and plan to de-escalation Renal; urine out put and renal funtion reviewed Endorcine: blood glucose is monitored Lines: all lines checked and no evidence of infections Skin: skin care to prevent pressure ulcers per nursing routine care Patient is still waiting to be transferred to the floor <Aleksey Huggins - Last Filed: 07/20/17 10:58> Date of Encounter: 07/20/17 Time of Encounter: 07:30 Assessment and Plan (1) Acute respiratory failure with hypoxia and hypercapnia Current Visit: Yes Status: Acute Continues to require BiPAP and high flow nasal O2; attempting to taper down to baseline level (5Lpm at home) Cont BiPAP as needed during day and necessarily at night Still having productive cough; cont NAC Completed course of IV Vanco Follow WBC; downtrending on prior labs -- cont monitoring Tapering steroids; (on day 4 of taper) -- 40 mg daily for 4 days, 30 mg for 4 days, 20 mg for 4 days, and 10 mg for 4 days Negative fluid balance (-165) -- Cont IV Lasix at 40mg BID and fluid restriction -- Renal function normal/stable (2) Acute on chronic diastolic CHF (congestive heart failure) Current Visit: Yes Status: Acute Plans as above no signs of volume overload negative fluid balance CXR shows signs of pulmonary edema, but this is improved over prior study on 02/22 (3) Atrial fibrillation Current Visit: Yes Status: Chronic Still dysrhythmic Rate controlled; CCB as above [id number] = 4; not on oral anticoagulant, suspect due to chronic anemia -- trending Hgb which is down overnight; will likely need to see this controlled or stabilized before consideration of anticoag tx -- poor follow up; may need hospital consultation Qualifiers: Atrial fibrillation type: paroxysmal Qualified Code(s): I48.0 - Paroxysmal atrial fibrillation (4) HCAP (healthcare-associated pneumonia) Current Visit: Yes Status: Acute RLL; has been on broad-spectrum antibiotics; de-escalate to IV Vancomycin due to isolated C. striatum -- Vancomycin day 10 -- Afebrile overnight -- Stable respiratory status (5) COPD (chronic obstructive pulmonary disease) Current Visit: Yes Status: Acute Mucus plug found on BAL; C. striatum isolated plans as above Qualifiers: COPD type: chronic bronchitis Chronic bronchitis type: mixed simple and mucopurulent Qualified Code(s): J41.8 - Mixed simple and mucopurulent chronic bronchitis (6) Lung collapse Current Visit: Yes Status: Acute L lung showed re-expansion on follow up XR after BAL Repeat CXR on 07/20/17 shows fully expanded lungs with generally improved findings compared to prior on 07/15/17 FINDINGS: Prominent pulmonary vasculature and increased interstitial markings. Bilateral pleural effusions with bibasilar opacities. There is improved aeration of the right lung base. Cardiac silhouette appears enlarged. Osseous structures are unchanged. XR/XR chest 1V portable IMPRESSION: Findings of pulmonary edema with pleural effusions. Improved aeration of the right lung base. (7) Anemia Current Visit: Yes Status: Acute Hgb remains stable with normal MCV Continue to follow hgb Qualifiers: Anemia type: unspecified type Qualified Code(s): D64.9 - Anemia, unspecified (8) Morbid obesity with BMI of 60.0-69.9, adult Current Visit: Yes Status: Chronic Contributor to respiratory status PT saw and worked with patient 07/17/17 -- continue PT for duration of hospitalization -- Likely SNF disposition on discharge, supported by PT recommendations (9) Non-insulin dependent type 2 diabetes mellitus Current Visit: Yes Status: Chronic On diabetic diet Cont medium dose SSI Add basal insulin -- Detemir 10U HS FSBG still reaching mid 200's -- will increase HS basal to... (10) Decubitus ulcer Current Visit: Yes Status: Acute Low grade with no signs of infection -- approximately 1.5 x 1.0 cm; stable exam Cont to monitor, cont Nystatin for barrier, and encourage positional changes Consider wound care consult in subsequent days if any worsening noted on exam Care per nursing protocol Qualifiers: Pressure ulcer location: buttock Pressure ulcer stage: stage 2 Laterality : left Qualified Code(s): L89.322 - Pressure ulcer of left buttock, stage 2 (11) Urinary incontinence Current Visit: Yes Status: Acute Patient is receiving Lasix for dCHF and has negative fluid balance Has been catheterized for strict I/O monitoring Attempted removal of Villagomez last PM resulting in incontinence; Villagomez was soon replaced -- patient is presently immobile due to habitus and deconditioning; PT is working with patient and expects her to be ambulatory in next few days Catheter is having some dysfunction with retention that is not otherwise present without Villagomez; nursing notes occasional obstructive clots, but otherwise normal colored urine 07/19/17) Spoke with Urology (Dr. Mariano) who does not feel patient has true retention or pathologic hematuria -- incontinence attributed to bladder spasm and clots attributed to traumatic recatheterization -- requests call for formal consult if any gross hematuria or persistent urinary discoloration is present 07/20/17) No signs of hematuria in bag; consult urology if hematuria or clot obstruction recurs Qualifiers: Urinary Incontinence type: unspecified incontinence Qualified Code(s): R32 - Unspecified urinary incontinence (12) DVT prophylaxis Current Visit: Yes Status: Acute Sub Q Lovenox; cont at current dose despite weight due to recent low hgb Subjective Principal diagnosis: Acute on chronic respiratory failure Interval history: Comfortable in bed with HOB elevated. Currently saturating high 90s on BiPAP; otherwise still saturating low 90s on 15Lpm high flow via nasal cannula. States was able to get to EOB with PT. No acute complaints. No overnight events per nursing. Pending transfer to step down unit. Objective PUL Vital signs: Last Vital Signs Temp 98.1 F 07/20/17 03:00 Pulse 66 07/20/17 07:06 Resp 21 07/20/17 07:06 BP 111/69 07/20/17 00:00 Pulse Ox 96 07/20/17 07:06 CONSTITUTIONAL: Alert and oriented X3, well-nourished, well appearing, in no apparent distress HEAD: Normocephalic; atraumatic. EYES: PERRL, no scleral icterus, no drainage, no conjunctival injection, no conjunctival pallor NOSE: The nose is normal in appearance without rhinorrhea Oropharynx: pink/moist RESP: NRD without use of accessory musculature, speaks full sentences without dyspneic interruption, CTA b/l with no wheezes/rales/rhonchi CARD: normal rate, irregular rhythm; no murmurs, rubs, or gallop ABD: grossly normal, soft, non-tender : villagomez catheter in place; no evidence of clots or hematuria in bag SKIN: no pallor/diaphoresis,mottling,jaundice,cyanosis; small unchanged skin abrasion near left gluteal fold (stage 1 ulcer without signs of infection -- 1.5 cm x 1 cm) EXT: Rad pulses 2+ and symmetrical; no lateralizing edema; no other lesions seen PSYCH: appropriate mood/affect Results - Laboratory Findings CBC and BMP: 07/20/17 09:00 07/20/17 09:00 ABG ABG pH 7.40 pH Units (7.32-7.45) 07/15/17 04:50 ABG pCO2 81 mmHg (35-45) H* 07/15/17 04:50 ABG pO2 50 mmHg (85-104) L* 07/15/17 04:50 ABG O2 Saturation 82 % (95-98) L 07/15/17 04:50 PT/INR, D-dimer PT 15.5 Seconds (9.4-12.1) H 07/11/17 09:10 Abnormal lab findings: Abnormal lab results WBC 16.8 K/mcL (4.3-11.1) H 07/19/17 08:15 RBC 3.16 M/mcL (3.82-4.97) L 07/19/17 08:15 Hgb 7.9 g/dL (11.5-15.4) L 07/19/17 08:15 Hct 29.5 % (35.3-44.9) L 07/19/17 08:15 MCH 25.0 pg (28.0-33.3) L 07/19/17 08:15 MCHC 26.8 g/dL (31.6-35.5) L 07/19/17 08:15 RDW 20.5 % (11.5-14.5) H 07/19/17 08:15 Neutrophils # 13.4 K/mcL (1.6-8.9) H 07/19/17 08:15 Nucleated RBCs/100 WBC 0.5 /100 WBC (0) H 07/19/17 08:15 Large Platelets Present (Not Present) A 07/08/17 05:02 Polychromasia 1+ (Not Present) A 07/19/17 08:15 Hypochromasia Present (Not Present) A 07/19/17 08:15 Poikilocytosis 1+ (Not Present) A 07/15/17 03:10 Anisocytosis 1+ (Not Present) A 07/19/17 08:15 Microcytosis Present (Not Present) A 07/15/17 03:10 Macrocytosis Present (Not Present) A 07/13/17 04:00 Spherocytes 1+ (Not Present) A 07/13/17 04:00 Stomatocytes 1+ (Not Present) A 07/13/17 04:00 PT 15.5 Seconds (9.4-12.1) H 07/11/17 09:10 ABG pCO2 81 mmHg (35-45) H* 07/15/17 04:50 ABG pO2 50 mmHg (85-104) L* 07/15/17 04:50 ABG HCO3 50 mEq/L (21-27) H 07/15/17 04:50 ABG Total CO2 52 mEq/L (20-26) H 07/15/17 04:50 ABG O2 Saturation 82 % (95-98) L 07/15/17 04:50 ABG Base Excess 22 mEq/L (-2 to 3) H 07/15/17 04:50 VBG pCO2 80 mmHg (41-51) H* 07/14/17 17:15 VBG pO2 181 mmHg (25-50) H 07/14/17 17:15 VBG HCO3 48 mEq/L (21-27) H 07/14/17 17:15 Sodium 148 mEq/L (136-145) H 07/19/17 08:15 Potassium 3.2 mEq/L (3.5-5.1) L 07/19/17 08:15 Chloride 96 mEq/L (98-107) L 07/19/17 08:15 Carbon Dioxide > 45 mEq/L (23-29) H* 07/19/17 08:15 BUN 22 mg/dL (6-20) H 07/19/17 08:15 Creatinine 0.43 mg/dL (0.60-1.20) L 07/19/17 08:15 BUN/Creatinine Ratio 51 (6-26) H 07/19/17 08:15 POC Glucose 248 (58-89) H 07/19/17 19:11 Calculated Osmolality 310 (280-300) H 07/19/17 08:15 Calcium 8.4 mg/dL (8.6-10.3) L 07/19/17 08:15 Venous Ioniz Calcium 1.02 mmol/L (1.15-1.35) L 07/16/17 08:45 B-Natriuretic Peptide 863 pg/mL (Less than 100) H 07/04/17 14:31 Pleural Appearance Bloody (Clear) A 07/12/17 08:47 - Clinical Findings Intake & Output: Intake & Output 07/19/17 07/20/17 07/20/17 23:59 07:59 15:59 Intake Total 1210 / 1210 360 / 360 Output Total 1900 / 1900 850 / 850 Balance -690 / -690 -490 / -490 Weight 190.9 kg - VTE Documentation of Mechanical Device: Intermittent pneumatic compression device
[2017-07-20] MEDS: Acetylcysteine 10% 2 ML INHSOL IH SCH ×3 (08:39→23:16)
[2017-07-20] MEDS: Aspirin 325 MG TABLET PO SCH (08:46)
[2017-07-20] MEDS: Nicotine 14 MG PATCH.TD24 TD SCH (08:46)
[2017-07-20] MEDS: Diltiazem CD (24hr) 180 MG CAPSULE PO SCH (08:47)
[2017-07-20] MEDS: Furosemide 40 MG/4 ML VIAL IVP SCH (08:47)
[2017-07-20] MEDS: Insulin LISPRO 300 UNITS/3 ML VIAL SQ SCH ×4 (08:48→22:02)
[2017-07-20] MEDS: Nystatin POWDER 30 GM BOTTLE TP SCH ×2 (08:48→22:02)
[2017-07-20] MEDS ORDERED: predniSONE 20 MG TABLET PO SCH (09:00)
[2017-07-20 09:18] LABS: Basophils % 0.1 %; Eosinophils % 0.7 %; Hemoglobin 7.7 g/dL (11.5-15.4); Nucleated Red Blood Cells 0.5 /100 WBC (0); Red Cell Distribution Width 20.8 % (11.5-14.5)
[2017-07-20 09:20] LABS: Eosinophils # 0.1 K/mcL (0.0-0.6); Hematocrit 28.3 % (35.3-44.9); Immature Granulocytes % 1.3 % (0-4); Mean Corpuscular HGB Conc 27.2 g/dL (31.6-35.5); Mean Corpuscular Volume 91.9 fL (83.0-100.0); Mean Platelet Volume 10.5 fL (9.4-12.4); Monocytes # 1.1 K/mcL (0.0-1.3); Monocytes % 7.4 %; Neutrophils # 11.8 K/mcL (1.6-8.9); Platelet Count 185 K/mcL (140-400); Red Blood Count 3.08 M/mcL (3.82-4.97); Segmented Neutrophils % 77.5 %
[2017-07-20 09:29] LABS: Anisocytosis 1+ (Not Present); Hypochromasia Present (Not Present); Platelet Estimate Normal (Normal)
[2017-07-20 10:15] LABS: BUN/Creatinine Ratio 44 (6-26); Blood Urea Nitrogen 19 mg/dL (6-20); Calcium 8.5 mg/dL (8.6-10.3); Carbon Dioxide 44 mEq/L (23-29); Chloride 97 mEq/L (98-107); Glucose 118 mg/dL (70-105); Osmolality,Calculated 309 (280-300); Potassium 3.2 mEq/L (3.5-5.1); Sodium 148 mEq/L (136-145); eGFR For African Americans > 60 (> 60); eGFR For Non-African Americans > 60 (> 60)
--- NOTE | 2017-07-20 13:30 | Internal Med Progress Note ---
Date of Encounter: 07/20/17 Time of Encounter: 13:28 - Assessment and plan (1) Acute respiratory failure with hypoxia and hypercapnia Current Visit: Yes Status: Acute Assessment and plan: Acute on chronic hypoxic and hypercapnic respiratory failure secondary to acute COPD exacerbation triggered by possible Corynebacterium striatum pneumonia , mucus plugging and left lung atelectasis in combination of acute diastolic CHF exacerbation , right > left pleural effusion Collapse, reexpanded completed 10 days of Vancomycin IV lasix , prednisone taper still on 15 Lt high flow NS BIPAP fluid restriction Was in the ICU Bronchoscopy showed atelectasis in the left upper and left lower lobes, erythema in the left mainstem bronchus, also left upper lobe and left lower lobe , mucous plugs found. CT chest showed: 1. No acute pulmonary artery embolism. 2. Indeterminate endobronchial foci within the distal left mainstem bronchus and origin to the right middle lobe with associated dense regions of consolidation and volume loss. 3. Bilateral pleural effusions with right basilar atelectasis or developing infection. wean off oxygen 10 Lt ( was on 15 Lt) (2) Acute on chronic diastolic CHF (congestive heart failure) Current Visit: Yes Status: Acute (3) Atrial fibrillation Current Visit: Yes Status: Chronic Assessment and plan: Still dysrhythmic Rate controlled; CCB as above [id number] = 4; not on oral anticoagulant, suspect due to chronic anemia -- trending Hgb which is down overnight; will likely need to see this controlled or stabilized before consideration of anticoag tx -- poor follow up Qualifiers: Atrial fibrillation type: paroxysmal Qualified Code(s): I48.0 - Paroxysmal atrial fibrillation (4) HCAP (healthcare-associated pneumonia) Current Visit: Yes Status: Acute (5) COPD (chronic obstructive pulmonary disease) Current Visit: Yes Status: Acute Assessment and plan: Steroids Qualifiers: COPD type: chronic bronchitis Chronic bronchitis type: mixed simple and mucopurulent Qualified Code(s): J41.8 - Mixed simple and mucopurulent chronic bronchitis (6) Lung collapse Current Visit: Yes Status: Acute (7) Anemia Current Visit: Yes Status: Acute Assessment and plan: Stable Qualifiers: Anemia type: unspecified type Qualified Code(s): D64.9 - Anemia, unspecified (8) Morbid obesity with BMI of 60.0-69.9, adult Current Visit: Yes Status: Chronic (9) Non-insulin dependent type 2 diabetes mellitus Current Visit: Yes Status: Chronic Assessment and plan: Insulin sliding scale Levemir 10 units (10) Decubitus ulcer Current Visit: Yes Status: Acute Assessment and plan: LoLow grade with no signs of infection -- approximately 1.5 x 1.0 cm; stable exam Cont to monitor, cont Nystatin for barrier, and encourage positional changes Consider wound care consultw grade with no signs of infection -- approximately 1.5 x 1.0 cm; stable exam Cont to monitor, cont Nystatin for barrier, and encourage positional changes Consider wound care consulted Qualifiers: Pressure ulcer location: buttock Pressure ulcer stage: stage 1 Laterality : left Qualified Code(s): L89.321 - Pressure ulcer of left buttock, stage 1 (11) Urinary incontinence Current Visit: Yes Status: Acute Assessment and plan: ncontinence attributed to bladder spasm and clots attributed to traumatic recatheterization. Needs Urology follow up as outpatient, formal consult if any gross hematuria or persistent urinary discoloration is present Qualifiers: Urinary Incontinence type: unspecified incontinence Qualified Code(s): R32 - Unspecified urinary incontinence (12) DVT prophylaxis Current Visit: Yes Status: Acute Assessment and plan: lovenox - Subjective Interval history: Still short of breath, coughing and bringing up less phlegm, not complaining of chills anymore, fevers recorded, no abdominal pain, no diarrhea or dysuria. No chest pain - Constitutional Vitals: Temp Pulse Resp BP Pulse Ox 98.7 F 70 36 111/69 91 07/20/17 09:17 07/20/17 12:00 07/20/17 13:17 07/20/17 00:00 07/20/17 13:17 General appearance: Present: A&O X 3, morbidly obese, no acute distress, answers questions appropriately Exam: - Head Head exam: Present: atraumatic, normocephalic - Eye Eye exam: Present: PERRL, conjuntiva pink, sclera anicteric Pupils: Present: PERRL - Neck Neck exam general surgery: Present: supple, trachea midline. Absent: lymphadenopathy - Respiratory Respiratory exam: Present: CTAB, rales (right basilar crackles). Absent: accessory muscle use, rhonchi, wheezes - Cardiovascular Cardiovascular exam: Present: RRR, +S1, +S2. Absent: diastolic murmur, gallop, rubs, systolic murmur - GI/Abdominal GI/Abdominal exam: Present: distended, normal bowel sounds, soft, no peritoneal signs. Absent: tenderness - Extremities Exam Extremities exam: Present: pedal edema (+3 pitting edema improving in both lower extremities), warm, radial pulses palpable and symmetrical. Absent: calf tenderness, cyanotic - Neurological Exam Neurological exam: Present: CN II-XII intact, oriented X3, no focal deficits. Absent: pronater drift, facial droop, speech deficit - Skin Skin exam: Present: dry, intact Internal Medicine: Result - Labs CBC & Chem 7: 07/20/17 09:00 07/20/17 09:00 Labs: Short CBC 07/20/17 Range/Units 09:00 WBC 15.2 H (4.3-11.1) K/mcL Hgb 7.7 L (11.5-15.4) g/dL Hct 28.3 L (35.3-44.9) % Plt Count 185 (140-400) K/mcL Neutrophils # 11.8 H (1.6-8.9) K/mcL BMP 07/20/17 09:00 Sodium 148 H Potassium 3.2 L Chloride 97 L Carbon Dioxide 44 H* BUN 19 Creatinine 0.43 L Glucose 118 H Calcium 8.5 L - ABG Interpretation ABG results: ABG ABG pH 7.40 pH Units (7.32-7.45) 07/15/17 04:50 ABG pCO2 81 mmHg (35-45) H* 07/15/17 04:50 ABG pO2 50 mmHg (85-104) L* 07/15/17 04:50 ABG O2 Saturation 82 % (95-98) L 07/15/17 04:50 PT/INR, D-dimer PT 15.5 Seconds (9.4-12.1) H 07/11/17 09:10 - Impressions Impressions Chest X-Ray 07/20/17 08:30 IMPRESSION: Findings of pulmonary edema with pleural effusions. Improved aeration of the right lung base. D/ / Db Hernandez MD / Db Hernandez MD Interpreting Provider: Db Hernandez MD - VTE Documentation of Mechanical Device: Intermittent pneumatic compression device Consult Discharge Plan - Plan Instructions: Heart Failure (DC) Additional Instructions: Decrease fluid intake. Continue with Lasix 40 mg 3 times a day. Prednisone taper as follows: 40 mg daily for 4 days, 30 mg for 4 days, 20 mg for 4 days and 10 mg for 4 days. Complete 2 more days of cefdinir Referrals: Aleksey Huggins DO [Primary Care Provider] - Prescriptions: Cefdinir [Omnicef] 300 mg PO BID #4 capsule predniSONE [PredniSONE] 10 mg PO DAILY 16 Days tablet
[2017-07-20] MEDS: Furosemide 40 MG TABLET PO SCH (16:14)
[2017-07-20] MEDS ORDERED: Insulin DETEMIR 100 UNIT/ML X5UNITS SQ SCH (21:00)
[2017-07-21] MEDS: Insulin DETEMIR 100 UNIT/ML X5UNITS SQ SCH ×3 (00:07→22:14)
[2017-07-21] MEDS: Ipratropium/Albuterol Neb 3 ML IH SCH ×6 (03:51→23:34)
[2017-07-21] MEDS: *HR* Enoxaparin 40 MG/0.4 ML SYRINGE SQ SCH (04:34)
[2017-07-21 05:17] LABS: Basophils % 0.1 %; Hematocrit 27.9 % (35.3-44.9); Red Cell Distribution Width 20.8 % (11.5-14.5)
[2017-07-21 05:18] LABS: Eosinophils # 0.1 K/mcL (0.0-0.6); Eosinophils % 0.8 %; Hemoglobin 7.7 g/dL (11.5-15.4); Immature Granulocytes % 1.2 % (0-4); Lymphocytes # 1.7 K/mcL (0.6-4.6); Lymphocytes % 11.9 %; Mean Corpuscular HGB Conc 27.6 g/dL (31.6-35.5); Mean Corpuscular Hemoglobin 24.8 pg (28.0-33.3); Mean Platelet Volume 10.8 fL (9.4-12.4); Monocytes % 6.8 %; Neutrophils # 11.3 K/mcL (1.6-8.9); Nucleated Red Blood Cells 0.3 /100 WBC (0); Platelet Count 194 K/mcL (140-400); Segmented Neutrophils % 79.2 %
[2017-07-21 05:44] LABS: BUN/Creatinine Ratio 45 (6-26); Blood Urea Nitrogen 18 mg/dL (6-20); Calcium 8.5 mg/dL (8.6-10.3); Carbon Dioxide 45 mEq/L (23-29); Chloride 97 mEq/L (98-107); Glucose 139 mg/dL (70-105); Osmolality,Calculated 304 (280-300); Potassium 3.6 mEq/L (3.5-5.1); Sodium 145 mEq/L (136-145); eGFR For African Americans > 60 (> 60); eGFR For Non-African Americans > 60 (> 60)
[2017-07-21 06:54] LABS: Anisocytosis 1+ (Not Present); Hypochromasia Present (Not Present); Platelet Estimate Normal (Normal)
[2017-07-21] MEDS ORDERED: predniSONE 10 MG TABLET PO SCH (09:00)
[2017-07-21] MEDS ORDERED: Ipratropium/Albuterol Neb 3 ML IH PRN (09:17)
--- NOTE | 2017-07-21 09:25 | Internal Med Progress Note ---
Date of Encounter: 07/21/17 Time of Encounter: 09:23 - Assessment and plan (1) Acute respiratory failure with hypoxia and hypercapnia Current Visit: Yes Status: Acute Assessment and plan: Acute on chronic hypoxic and hypercapnic respiratory failure secondary to acute COPD exacerbation triggered by possible Corynebacterium striatum pneumonia , mucus plugging and left lung atelectasis in combination of acute diastolic CHF exacerbation , right > left pleural effusion Collapse, reexpanded completed 10 days of Vancomycin IV lasix , prednisone taper still on 10 Lt high flow NS ( was on 15 Lt in the ICU) BIPAP fluid restriction Was in the ICU Bronchoscopy showed atelectasis in the left upper and left lower lobes, erythema in the left mainstem bronchus, also left upper lobe and left lower lobe , mucous plugs found. CT chest showed: 1. No acute pulmonary artery embolism. 2. Indeterminate endobronchial foci within the distal left mainstem bronchus and origin to the right middle lobe with associated dense regions of consolidation and volume loss. 3. Bilateral pleural effusions with right basilar atelectasis or developing infection. (2) Acute on chronic diastolic CHF (congestive heart failure) Current Visit: Yes Status: Acute (3) Atrial fibrillation Current Visit: Yes Status: Chronic Assessment and plan: Still dysrhythmic Rate controlled; CCB as above [id number] = 4; not on oral anticoagulant, suspect due to chronic anemia -- trending Hgb which is down overnight; will likely need to see this controlled or stabilized before consideration of anticoag tx -- poor follow up Qualifiers: Atrial fibrillation type: paroxysmal Qualified Code(s): I48.0 - Paroxysmal atrial fibrillation (4) HCAP (healthcare-associated pneumonia) Current Visit: Yes Status: Acute (5) COPD (chronic obstructive pulmonary disease) Current Visit: Yes Status: Acute Assessment and plan: Steroids Qualifiers: COPD type: chronic bronchitis Chronic bronchitis type: mixed simple and mucopurulent Qualified Code(s): J41.8 - Mixed simple and mucopurulent chronic bronchitis (6) Lung collapse Current Visit: Yes Status: Acute (7) Anemia Current Visit: Yes Status: Acute Assessment and plan: Stable Qualifiers: Anemia type: unspecified type Qualified Code(s): D64.9 - Anemia, unspecified (8) Morbid obesity with BMI of 60.0-69.9, adult Current Visit: Yes Status: Chronic (9) Non-insulin dependent type 2 diabetes mellitus Current Visit: Yes Status: Chronic Assessment and plan: Insulin sliding scale Levemir 10 units (10) Decubitus ulcer Current Visit: Yes Status: Acute Assessment and plan: LoLow grade with no signs of infection -- approximately 1.5 x 1.0 cm; stable exam Cont to monitor, cont Nystatin for barrier, and encourage positional changes Consider wound care consultw grade with no signs of infection -- approximately 1.5 x 1.0 cm; stable exam Cont to monitor, cont Nystatin for barrier, and encourage positional changes Consider wound care consulted Qualifiers: Pressure ulcer location: buttock Pressure ulcer stage: stage 1 Laterality : left Qualified Code(s): L89.321 - Pressure ulcer of left buttock, stage 1 (11) Urinary incontinence Current Visit: Yes Status: Acute Assessment and plan: ncontinence attributed to bladder spasm and clots attributed to traumatic recatheterization. Needs Urology follow up as outpatient, formal consult if any gross hematuria or persistent urinary discoloration is present Qualifiers: Urinary Incontinence type: unspecified incontinence Qualified Code(s): R32 - Unspecified urinary incontinence (12) Constipation Current Visit: Yes Status: Acute Assessment and plan: Use lactulose may use tap water enema if lactulose not effective - Subjective Interval history: Still feeling very short of breath, coughing and bringing up less phlegm, not complaining of chills anymore, fevers recorded, no abdominal pain, no diarrhea or dysuria. No chest pain. Complaining of constipation - Constitutional Vitals: Temp Pulse Resp BP Pulse Ox 97.8 F 81 14 105/62 96 07/21/17 06:44 07/21/17 06:44 07/21/17 06:44 07/21/17 06:44 07/21/17 06:44 General appearance: Present: A&O X 3, morbidly obese, no acute distress, answers questions appropriately Exam: - Head Head exam: Present: atraumatic, normocephalic - Eye Eye exam: Present: PERRL, conjuntiva pink, sclera anicteric Pupils: Present: PERRL - Neck Neck exam general surgery: Present: supple, trachea midline. Absent: lymphadenopathy - Respiratory Respiratory exam: Present: CTAB, rales (right basilar crackles). Absent: accessory muscle use, rhonchi, wheezes - Cardiovascular Cardiovascular exam: Present: RRR, +S1, +S2. Absent: diastolic murmur, gallop, rubs, systolic murmur - GI/Abdominal GI/Abdominal exam: Present: distended, normal bowel sounds, soft, no peritoneal signs. Absent: tenderness - Extremities Exam Extremities exam: Present: pedal edema (+3 pitting edema improving in both lower extremities), warm, radial pulses palpable and symmetrical. Absent: calf tenderness, cyanotic - Neurological Exam Neurological exam: Present: CN II-XII intact, oriented X3, no focal deficits. Absent: pronater drift, facial droop, speech deficit - Skin Skin exam: Present: dry, intact Internal Medicine: Result - Labs CBC & Chem 7: 07/21/17 04:00 07/21/17 04:00 Labs: Short CBC 07/20/17 07/21/17 Range/Units 09:00 04:00 WBC 15.2 H 14.3 H (4.3-11.1) K/mcL Hgb 7.7 L 7.7 L (11.5-15.4) g/dL Hct 28.3 L 27.9 L (35.3-44.9) % Plt Count 185 194 (140-400) K/mcL Neutrophils # 11.8 H 11.3 H (1.6-8.9) K/mcL BMP 07/20/17 07/20/17 07/21/17 09:00 16:30 04:00 Sodium 148 H 145 Potassium 3.2 L 3.8 3.6 Chloride 97 L 97 L Carbon Dioxide 44 H* 45 H* BUN 19 18 Creatinine 0.43 L 0.40 L Glucose 118 H 139 H Calcium 8.5 L 8.5 L - ABG Interpretation ABG results: ABG ABG pH 7.40 pH Units (7.32-7.45) 07/15/17 04:50 ABG pCO2 81 mmHg (35-45) H* 07/15/17 04:50 ABG pO2 50 mmHg (85-104) L* 07/15/17 04:50 ABG O2 Saturation 82 % (95-98) L 07/15/17 04:50 PT/INR, D-dimer PT 15.5 Seconds (9.4-12.1) H 07/11/17 09:10 - VTE Documentation of Mechanical Device: Intermittent pneumatic compression device Consult Discharge Plan - Plan Instructions: Heart Failure (DC) Additional Instructions: Decrease fluid intake. Continue with Lasix 40 mg 3 times a day. Prednisone taper as follows: 40 mg daily for 4 days, 30 mg for 4 days, 20 mg for 4 days and 10 mg for 4 days. Complete 2 more days of cefdinir Referrals: Aleksey Huggins DO [Primary Care Provider] - Prescriptions: Cefdinir [Omnicef] 300 mg PO BID #4 capsule predniSONE [PredniSONE] 10 mg PO DAILY 16 Days tablet
[2017-07-21] MEDS: Insulin LISPRO 300 UNITS/3 ML VIAL SQ SCH ×4 (09:44→22:14)
[2017-07-21] MEDS: Furosemide 40 MG TABLET PO SCH ×2 (09:54→16:41)
[2017-07-21] MEDS: Diltiazem CD (24hr) 180 MG CAPSULE PO SCH (09:55)
[2017-07-21] MEDS: Aspirin 325 MG TABLET PO SCH (09:55)
[2017-07-21] MEDS: predniSONE 10 MG TABLET PO SCH (09:56)
[2017-07-21] MEDS: Lactulose Oral Soln 20 GM/30 ML UDC PO SCH ×2 (09:57→12:04)
[2017-07-21] MEDS: Nystatin POWDER 30 GM BOTTLE TP SCH ×2 (10:02→22:14)
[2017-07-21] MEDS: Nicotine 14 MG PATCH.TD24 TD SCH (10:11)
[2017-07-21] MEDS: Acetylcysteine 10% 2 ML INHSOL IH SCH ×3 (11:05→23:35)
[2017-07-22] MEDS: Ipratropium/Albuterol Neb 3 ML IH SCH ×6 (03:30→23:24)
[2017-07-22 04:59] LABS: Mean Corpuscular Hemoglobin 24.8 pg (28.0-33.3)
[2017-07-22 05:01] LABS: Hematocrit 28.3 % (35.3-44.9); Hemoglobin 7.9 g/dL (11.5-15.4); Mean Corpuscular HGB Conc 27.9 g/dL (31.6-35.5); Mean Platelet Volume 11.1 fL (9.4-12.4); Platelet Count 200 K/mcL (140-400); Red Blood Count 3.18 M/mcL (3.82-4.97); Red Cell Distribution Width 20.9 % (11.5-14.5)
[2017-07-22 05:13] LABS: BUN/Creatinine Ratio 39 (6-26); Blood Urea Nitrogen 16 mg/dL (6-20); Calcium 8.5 mg/dL (8.6-10.3); Carbon Dioxide 41 mEq/L (23-29); Chloride 97 mEq/L (98-107); Glucose 93 mg/dL (70-105); Osmolality,Calculated 299 (280-300); Potassium 3.4 mEq/L (3.5-5.1); Sodium 144 mEq/L (136-145); eGFR For African Americans > 60 (> 60); eGFR For Non-African Americans > 60 (> 60)
[2017-07-22] MEDS: *HR* Enoxaparin 40 MG/0.4 ML SYRINGE SQ SCH (05:30)
[2017-07-22] MEDS: Acetylcysteine 10% 2 ML INHSOL IH SCH ×3 (07:36→23:25)
[2017-07-22] MEDS: predniSONE 10 MG TABLET PO SCH (08:28)
[2017-07-22] MEDS: Diltiazem CD (24hr) 180 MG CAPSULE PO SCH (08:28)
[2017-07-22] MEDS: Nicotine 14 MG PATCH.TD24 TD SCH (08:29)
[2017-07-22] MEDS: Aspirin 325 MG TABLET PO SCH (08:29)
[2017-07-22] MEDS: Furosemide 40 MG TABLET PO SCH ×2 (08:29→16:50)
[2017-07-22] MEDS: Insulin LISPRO 300 UNITS/3 ML VIAL SQ SCH ×4 (08:30→22:55)
[2017-07-22] MEDS: Nystatin POWDER 30 GM BOTTLE TP SCH ×2 (10:51→22:54)
--- NOTE | 2017-07-22 13:05 | Internal Med Progress Note ---
Date of Encounter: 07/22/17 Time of Encounter: 12:58 - Assessment and plan (1) Acute respiratory failure with hypoxia and hypercapnia Current Visit: Yes Status: Acute Assessment and plan: Secondary to COPD exacerbation from pneumonia and mucous plugging and left lung atelectasis along with CHF exacerbation. Patient has been treated with intravenous vancomycin. She has also been treated for CHF with Lasix. Is on prednisone. Remains on high flow nasal cannula. Requiring BiPAP and CPAP intermittently. Will evaluate for home BiPAP use with overnight qualification study. High risk for complications. Remains full code. Awaiting placement to skilled rehabilitation. (2) Acute on chronic diastolic CHF (congestive heart failure) Current Visit: Yes Status: Acute Assessment and plan: Has had excellent negative fluid balance with Lasix. On oral Lasix presently. (3) Constipation Current Visit: Yes Status: Resolved Assessment and plan: Improved. Patient having bowel movements now. Qualifiers: Constipation type: slow transit constipation Qualified Code(s): K59.01 - Slow transit constipation (4) Anemia Current Visit: Yes Status: Chronic Assessment and plan: Stable hemoglobin at 7.9. We will check iron, folic acid and B12 levels. Qualifiers: Anemia type: unspecified type Qualified Code(s): D64.9 - Anemia, unspecified (5) COPD (chronic obstructive pulmonary disease) Current Visit: Yes Status: Acute Assessment and plan: With acute exacerbation. Treated with bronchodilators and is on steroid taper. Qualifiers: COPD type: chronic bronchitis Chronic bronchitis type: mixed simple and mucopurulent Qualified Code(s): J41.8 - Mixed simple and mucopurulent chronic bronchitis (6) Atrial fibrillation Current Visit: Yes Status: Chronic Assessment and plan: Rate controlled. Not on medical anticoagulation due to anemia. Qualifiers: Atrial fibrillation type: paroxysmal Qualified Code(s): I48.0 - Paroxysmal atrial fibrillation (7) Decubitus ulcer Current Visit: Yes Status: Acute Assessment and plan: Local wound care. Frequent repositioning. Minimize pressure. Qualifiers: Pressure ulcer location: buttock Pressure ulcer stage: stage 2 Laterality : left Qualified Code(s): L89.322 - Pressure ulcer of left buttock, stage 2 (8) HCAP (healthcare-associated pneumonia) Current Visit: Yes Status: Resolved Assessment and plan: Completed treatment with vancomycin. (9) Lung collapse Current Visit: Yes Status: Resolved (10) Non-insulin dependent type 2 diabetes mellitus Current Visit: Yes Status: Chronic Assessment and plan: Blood sugars improved today. Continue current insulin regimen. (11) Urinary incontinence Current Visit: Yes Status: Acute Assessment and plan: Outpatient follow-up with urology. Possibly discharge with Leigh catheter in place. Qualifiers: Urinary Incontinence type: unspecified incontinence Qualified Code(s): R32 - Unspecified urinary incontinence - Subjective Interval history: Patient is lying in bed. Appears comfortable. She reports that her breathing is better. On 11 L O2 supplementation via nasal cannula at this time. Was taken off BiPAP earlier this morning. Denies any chest pain. No palpitations. - Constitutional Vitals: Temp Pulse Resp BP Pulse Ox 98.6 F 77 18 100/68 93 07/22/17 10:42 07/22/17 10:42 07/22/17 11:34 07/22/17 10:42 07/22/17 11:34 General appearance: Present: A&O X 3, morbidly obese, no acute distress, answers questions appropriately - Respiratory Respiratory exam: Present: prolonged expiratory phase. Absent: accessory muscle use, rales, rhonchi, wheezes Additional comments: Diminished breath sounds bilaterally. - Cardiovascular Cardiovascular exam: Present: RRR, +S1, +S2. Absent: diastolic murmur, gallop, rubs, systolic murmur - GI/Abdominal GI/Abdominal exam: Present: normal bowel sounds, soft, no peritoneal signs. Absent: distended, tenderness - Extremities Exam Extremities exam: Present: warm, radial pulses palpable and symmetrical. Absent : calf tenderness, cyanotic, pedal edema - Neurological Exam Neurological exam: Present: alert, oriented X3, no focal deficits. Absent: facial droop, speech deficit - Skin Skin exam: Present: dry, intact Internal Medicine: Result - Labs CBC & Chem 7: 07/22/17 04:28 07/22/17 04:28 Labs: Short CBC 07/22/17 Range/Units 04:28 WBC 12.8 H (4.3-11.1) K/mcL Hgb 7.9 L (11.5-15.4) g/dL Hct 28.3 L (35.3-44.9) % Plt Count 200 (140-400) K/mcL BMP 07/22/17 04:28 Sodium 144 Potassium 3.4 L Chloride 97 L Carbon Dioxide 41 H* BUN 16 Creatinine 0.41 L Glucose 93 Calcium 8.5 L - ABG Interpretation ABG results: ABG ABG pH 7.40 pH Units (7.32-7.45) 07/15/17 04:50 ABG pCO2 81 mmHg (35-45) H* 07/15/17 04:50 ABG pO2 50 mmHg (85-104) L* 07/15/17 04:50 ABG O2 Saturation 82 % (95-98) L 07/15/17 04:50 PT/INR, D-dimer PT 15.5 Seconds (9.4-12.1) H 07/11/17 09:10 - VTE Documentation of Mechanical Device: Intermittent pneumatic compression device Consult Discharge Plan - Plan Instructions: Heart Failure (DC) Additional Instructions: Decrease fluid intake. Continue with Lasix 40 mg 3 times a day. Prednisone taper as follows: 40 mg daily for 4 days, 30 mg for 4 days, 20 mg for 4 days and 10 mg for 4 days. Complete 2 more days of cefdinir Referrals: Aleksey Huggins DO [Primary Care Provider] - Prescriptions: Cefdinir [Omnicef] 300 mg PO BID #4 capsule predniSONE [PredniSONE] 10 mg PO DAILY 16 Days tablet
[2017-07-22] MEDS: Insulin DETEMIR 100 UNIT/ML X5UNITS SQ SCH (22:54)
[2017-07-23] MEDS: Ipratropium/Albuterol Neb 3 ML IH SCH ×6 (04:05→23:57)
[2017-07-23 05:30] LABS: % Iron Saturation 6 % (15-50); Ferritin 30 ng/ml (10-120); Iron 27 mcg/dL (50-170); Transferrin 313 mg/dL (203-362)
[2017-07-23 05:55] LABS: Folate 6.4 ng/mL (3.0-16.0)
[2017-07-23] MEDS: *HR* Enoxaparin 40 MG/0.4 ML SYRINGE SQ SCH (06:55)
[2017-07-23] MEDS: Acetylcysteine 10% 2 ML INHSOL IH SCH ×3 (07:24→23:57)
[2017-07-23] MEDS: Diltiazem CD (24hr) 180 MG CAPSULE PO SCH (08:45)
[2017-07-23] MEDS: predniSONE 10 MG TABLET PO SCH (08:45)
[2017-07-23] MEDS: Insulin LISPRO 300 UNITS/3 ML VIAL SQ SCH ×4 (08:45→22:30)
[2017-07-23] MEDS: Nicotine 14 MG PATCH.TD24 TD SCH (08:46)
[2017-07-23] MEDS: Aspirin 325 MG TABLET PO SCH (08:46)
[2017-07-23] MEDS: Furosemide 40 MG TABLET PO SCH ×2 (08:46→16:47)
[2017-07-23] MEDS: Nystatin POWDER 30 GM BOTTLE TP SCH ×2 (08:47→22:29)
--- NOTE | 2017-07-23 11:02 | Internal Med Progress Note ---
Date of Encounter: 07/23/17 Time of Encounter: 09:00 - Assessment and plan (1) Acute respiratory failure with hypoxia and hypercapnia Current Visit: Yes Status: Acute Assessment and plan: Secondary to COPD exacerbation from pneumonia and mucous plugging and left lung atelectasis along with CHF exacerbation. Continue to wean FiO2 as tolerated. Patient is currently on high flow nasal cannula at 10 L/m. Did qualify for home BiPAP use. We will discuss with [employer] school social [employer] teacher and make arrangements for this tomorrow. Awaiting placement to skilled rehabilitation. Continue treating underlying conditions with Lasix and prednisone. Moderate risk for complications (2) Acute on chronic diastolic CHF (congestive heart failure) Current Visit: Yes Status: Acute Assessment and plan: Good negative fluid balance overall. Continue Lasix. (3) Constipation Current Visit: Yes Status: Resolved Assessment and plan: Resolved Qualifiers: Constipation type: slow transit constipation Qualified Code(s): K59.01 - Slow transit constipation (4) Anemia Current Visit: Yes Status: Chronic Assessment and plan: Iron deficiency anemia. She will need colonoscopy which can be done as outpatient as her blood counts have remained fairly stable. Will place her on iron replacement therapy. Also has low normal vitamin B12 levels. We will replace. Qualifiers: Anemia type: unspecified type Qualified Code(s): D64.9 - Anemia, unspecified (5) COPD (chronic obstructive pulmonary disease) Current Visit: Yes Status: Acute Assessment and plan: Improving. Continue steroid taper. Continue bronchodilators and O2 supplementation Qualifiers: COPD type: chronic bronchitis Chronic bronchitis type: mixed simple and mucopurulent Qualified Code(s): J41.8 - Mixed simple and mucopurulent chronic bronchitis (6) Atrial fibrillation Current Visit: Yes Status: Chronic Assessment and plan: Remains controlled. Not on anticoagulation due to anemia Qualifiers: Atrial fibrillation type: paroxysmal Qualified Code(s): I48.0 - Paroxysmal atrial fibrillation (7) Decubitus ulcer Current Visit: Yes Status: Acute Assessment and plan: Continue local wound care along with frequent repositioning and pressure reduction Qualifiers: Pressure ulcer location: buttock Pressure ulcer stage: stage 2 Laterality : left Qualified Code(s): L89.322 - Pressure ulcer of left buttock, stage 2 (8) HCAP (healthcare-associated pneumonia) Current Visit: Yes Status: Resolved Assessment and plan: Resolved (9) Lung collapse Current Visit: Yes Status: Resolved (10) Non-insulin dependent type 2 diabetes mellitus Current Visit: Yes Status: Chronic Assessment and plan: Controlled. Continue current insulin sliding scale regimen. We will change Levemir dosage to 10 units twice a day instead of 20 units at bedtime. (11) Urinary incontinence Current Visit: Yes Status: Acute Assessment and plan: Leigh catheter in place. Will arrange for outpatient follow-up with urology at discharge. Qualifiers: Urinary Incontinence type: unspecified incontinence Qualified Code(s): R32 - Unspecified urinary incontinence - Subjective Interval history: Patient is feeling much better today. Comfortable. Shortness of breath stable. No new complaints at this time. No chest pain. No palpitations. - Constitutional Vitals: Temp Pulse Resp BP Pulse Ox 97.5 F L 63 26 103/65 100 07/23/17 07:21 07/23/17 07:21 07/23/17 07:24 07/23/17 07:21 07/23/17 07:24 General appearance: Present: A&O X 3, morbidly obese, no acute distress, answers questions appropriately - Respiratory Respiratory exam: Present: decreased breath sounds (Diminished at both bases), prolonged expiratory phase, wheezes. Absent: accessory muscle use, rales, rhonchi - Cardiovascular Cardiovascular exam: Present: RRR, +S1, +S2. Absent: diastolic murmur, gallop, rubs, systolic murmur - GI/Abdominal GI/Abdominal exam: Present: normal bowel sounds, soft, no peritoneal signs. Absent: distended, tenderness - Extremities Exam Extremities exam: Present: warm, radial pulses palpable and symmetrical. Absent : calf tenderness, cyanotic, pedal edema - Neurological Exam Neurological exam: Present: alert, CN II-XII intact, oriented X3, no focal deficits. Absent: facial droop, speech deficit Internal Medicine: Result - Labs CBC & Chem 7: 07/22/17 04:28 07/22/17 04:28 - ABG Interpretation ABG results: ABG ABG pH 7.40 pH Units (7.32-7.45) 07/15/17 04:50 ABG pCO2 81 mmHg (35-45) H* 07/15/17 04:50 ABG pO2 50 mmHg (85-104) L* 07/15/17 04:50 ABG O2 Saturation 82 % (95-98) L 07/15/17 04:50 PT/INR, D-dimer PT 15.5 Seconds (9.4-12.1) H 07/11/17 09:10 - VTE Documentation of Mechanical Device: Intermittent pneumatic compression device Consult Discharge Plan - Plan Instructions: Heart Failure (DC) Additional Instructions: Decrease fluid intake. Continue with Lasix 40 mg 3 times a day. Prednisone taper as follows: 40 mg daily for 4 days, 30 mg for 4 days, 20 mg for 4 days and 10 mg for 4 days. Complete 2 more days of cefdinir Referrals: Aleksey Huggins DO [Primary Care Provider] - Prescriptions: Cefdinir [Omnicef] 300 mg PO BID #4 capsule predniSONE [PredniSONE] 10 mg PO DAILY 16 Days tablet
[2017-07-23] MEDS: Cyanocobalamin (B-12) 1,000 MCG TABLET PO SCH (11:54)
[2017-07-23] MEDS: Insulin DETEMIR 100 UNIT/ML X5UNITS SQ SCH ×2 (11:55→22:28)
[2017-07-24] MEDS: Ipratropium/Albuterol Neb 3 ML IH SCH ×6 (03:54→23:00)
[2017-07-24 04:14] LABS: Basophils % 0.1 %; Eosinophils # 0.2 K/mcL (0.0-0.6); Eosinophils % 1.3 %; Hematocrit 27.5 % (35.3-44.9); Hemoglobin 7.6 g/dL (11.5-15.4); Immature Granulocytes % 0.9 % (0-4); Lymphocytes # 1.8 K/mcL (0.6-4.6); Lymphocytes % 15.5 %; Mean Corpuscular HGB Conc 27.6 g/dL (31.6-35.5); Mean Corpuscular Hemoglobin 24.9 pg (28.0-33.3); Mean Corpuscular Volume 90.2 fL (83.0-100.0); Monocytes # 0.7 K/mcL (0.0-1.3); Neutrophils # 8.8 K/mcL (1.6-8.9); Nucleated Red Blood Cells 0.5 /100 WBC (0); Platelet Count 179 K/mcL (140-400); Red Blood Count 3.05 M/mcL (3.82-4.97); Red Cell Distribution Width 21.5 % (11.5-14.5); Segmented Neutrophils % 76.2 %
[2017-07-24 04:37] LABS: BUN/Creatinine Ratio 40 (6-26); Blood Urea Nitrogen 18 mg/dL (6-20); Calcium 8.3 mg/dL (8.6-10.3); Carbon Dioxide 36 mEq/L (23-29); Chloride 98 mEq/L (98-107); Glucose 129 mg/dL (70-105); Osmolality,Calculated 302 (280-300); Potassium 3.5 mEq/L (3.5-5.1); Sodium 144 mEq/L (136-145); eGFR For African Americans > 60 (> 60); eGFR For Non-African Americans > 60 (> 60)
[2017-07-24 04:40] LABS: Hypochromasia Present (Not Present); Platelet Estimate Slight Decrease (Normal)
[2017-07-24 04:41] LABS: Anisocytosis 1+ (Not Present)
[2017-07-24] MEDS: *HR* Enoxaparin 40 MG/0.4 ML SYRINGE SQ SCH (05:30)
[2017-07-24] MEDS: Acetylcysteine 10% 2 ML INHSOL IH SCH ×3 (07:44→22:57)
[2017-07-24] MEDS: Insulin LISPRO 300 UNITS/3 ML VIAL SQ SCH ×4 (08:04→21:53)
[2017-07-24] MEDS ORDERED: predniSONE 20 MG TABLET PO SCH (09:00)
[2017-07-24] MEDS: Furosemide 40 MG TABLET PO SCH ×2 (10:06→17:14)
[2017-07-24] MEDS: Cyanocobalamin (B-12) 1,000 MCG TABLET PO SCH (10:06)
[2017-07-24] MEDS: predniSONE 20 MG TABLET PO SCH (10:06)
[2017-07-24] MEDS: Diltiazem CD (24hr) 180 MG CAPSULE PO SCH (10:06)
[2017-07-24] MEDS: Aspirin 325 MG TABLET PO SCH (10:07)
[2017-07-24] MEDS: Nicotine 14 MG PATCH.TD24 TD SCH (10:08)
[2017-07-24] MEDS: Insulin DETEMIR 100 UNIT/ML X5UNITS SQ SCH ×2 (10:09→21:50)
[2017-07-24] MEDS: Nystatin POWDER 30 GM BOTTLE TP SCH ×2 (10:10→21:51)
--- NOTE | 2017-07-24 15:30 | Discharge Summary ---
Orders not resulted at time of discharge: Pending orders 07/12/17 08:47 AFB Culture, Respiratory [TB] Routine AFB Smear [TB] Routine Fungal Culture [MYC] Routine 07/14/17 16:35 Ionized Calcium,venous blood Routine Date of Encounter: 07/24/17 Time of Encounter: 15:22 - Discharge Diagnosis (1) Acute respiratory failure with hypoxia and hypercapnia Priority: Primary Status: Acute Comments: Acute on chronic hypoxic and hypercapnic respiratory failure secondary to acute COPD exacerbation triggered by possible Corynebacterium striatum pneumonia , mucus plugging and left lung atelectasis in combination of acute diastolic CHF exacerbation , right > left pleural effusion left lung collapsed and reexpanded (2) Acute on chronic diastolic CHF (congestive heart failure) Current Visit: Yes Status: Acute (3) Atrial fibrillation Current Visit: Yes Status: Chronic Assessment and plan: Qualifiers: Atrial fibrillation type: paroxysmal Qualified Code(s): I48.0 - Paroxysmal atrial fibrillation (4) HCAP (healthcare-associated pneumonia) Current Visit: Yes Status: Acute (5) COPD (chronic obstructive pulmonary disease) Current Visit: Yes Status: Acute Assessment and plan: Steroids Qualifiers: COPD type: chronic bronchitis Chronic bronchitis type: mixed simple and mucopurulent Qualified Code(s): J41.8 - Mixed simple and mucopurulent chronic bronchitis (6) Lung collapse Current Visit: Yes Status: Acute (7) Anemia Current Visit: Yes Status: Acute Assessment and plan: Stable Qualifiers: Anemia type: unspecified type Qualified Code(s): D64.9 - Anemia, unspecified (8) Morbid obesity with BMI of 60.0-69.9, adult Current Visit: Yes Status: Chronic (9) Non-insulin dependent type 2 diabetes mellitus Current Visit: Yes Status: Chronic Assessment and plan: (10) Decubitus ulcer Current Visit: Yes Status: Acute Assessment and plan: LoLow grade with no signs of infection -- approximately 1.5 x 1.0 cm; stable exam Cont to monitor, cont Nystatin for barrier, and encourage positional changes Consider wound care consultw grade with no signs of infection -- approximately 1.5 x 1.0 cm; stable exam Cont to monitor, cont Nystatin for barrier, and encourage positional changes Consider wound care consulted Hospital course: Ms. Kyle is a 56 year old female slick a PMHx of chronic respiratory failure/ COPD on 4-5L home O2 and CPAP, dCHF, a fib, DM not insulin-dependent, GERD, HLD , HTN, Moderate MR and TR, Severe Pulmonary HTN who was brought in by EMS for SOB. She was found with a pulse ox in the 70s in the field. She was placed on BiPAP. Patient was transitioned to ED biPAP and was sating in the low 90s. Patient was somnolent at time but arousable and able to communicate answer questions appropriately. Lab work in the ED was significant for bicarb 37, LA 3.7 repeat 1.1, negative troponin, BNP 863, and VBG of pH 7.22/pco2 104/po2 144/ hco3 43, repeat 7.17/119/100/43. CXR showed: "Vascular engorgement and cephalization is demonstrated with bilateral peribronchial cuffing and perivascular haziness. Bibasilar consolidation and bilateral pleural effusion. " Patient received Duonebs, 40mg IV lasix, and 125mg Solumedrol in the ED. The patient was continued on Solu-Medrol, Rocephin and her Lasix increased, also was developing episodes of hypotension in the morning and her Cardizem and Lopressor were held because of that reason. CT chest showed: 1. No acute pulmonary artery embolism. 2. Indeterminate endobronchial foci within the distal left mainstem bronchus and origin to the right middle lobe with associated dense regions of consolidation and volume loss. 3. Bilateral pleural effusions with right basilar atelectasis or developing infection. Was trasferred to the ICU and kept on BIPAP Bronchoscopy showed atelectasis in the left upper and left lower lobes, erythema in the left mainstem bronchus, also left upper lobe and left lower lobe , mucous plugs found. completed 10 days of Vancomycin IV to treat Corynebacterium striatum isolated on a sputum culture after a bronchoscopy. Stable on lasix and prednisone taper was on 15 Lt of high flow NS in the ICU fluid restriction [id number] = 4; not on oral anticoagulant, suspect due to chronic anemia -- trending Hgb which is down overnight; will likely need to see this controlled or stabilized before consideration of anticoag tx -- poor follow up Currently on 7 Lt, was given the option to stay another day but prefers to be discharged to an ECF on high flow NC - Time Spent with Patient Total time spent providing and/or coordinating discharge services: Greater than 30 minutes (40 min) - Discharge Medications Prescriptions: Oxycodone HCl 5 mg PO Q6H 7 Days #28 tablet predniSONE [PredniSONE] 10 mg PO DAILY 14 Days tablet Home Medications: Albuterol Sulfate [Proair Hfa] 2 puff IH Q4H PRN 09/08/15 [History] Aspirin 325 mg PO DAILY #60 tablet 09/19/15 [Rx] Ipratropium/Albuterol Neb [Duoneb] 3 ml IH [id number] PRN inh 12/08/16 [Rx] Fluticasone/Vilanterol [Breo Ellipta 100-25 Mcg INH] 1 puff IH DAILY 04/22/17 [ History] Albuterol Neb [Proventil Neb] 2.5 mg IH [id number] inhsol 04/26/17 [Rx] Melatonin 3 mg PO HS PRN tablet 04/26/17 [Rx] Nicotine Patch [Nicoderm] 14 mg TD Q24H patch.td24 04/26/17 [Rx] Oxygen 5 l NS AD 07/04/17 [History] Acetaminophen [Tylenol] 650 mg PO Q6HR PRN tablet 07/24/17 [Rx] Aspirin 325 mg PO DAILY tablet 07/24/17 [Rx] Diltiazem CD (24hr) [Cardizem CD] 360 mg PO DAILY cap.er.24h 07/24/17 [Rx] Ferrous Sulfate 325 mg PO BIDWM tablet 07/24/17 [Rx] Furosemide [Lasix] 40 mg PO BIDDIURETIC tablet 07/24/17 [Rx] Insulin DETEMIR [Levemir] 10 unit SQ BID [id number] 07/24/17 [Rx] Ipratropium/Albuterol Neb [Duoneb] 3 ml IH Q4H PRN inhsol 07/24/17 [Rx] Metoprolol [Lopressor] 50 mg PO BID tablet 07/24/17 [Rx] Nystatin POWDER [Nystop] 1 appl TP BID bottle 07/24/17 [Rx] Omeprazole [PriLOSEC] 20 mg PO DAILY@0730 capsule. 07/24/17 [Rx] Oxycodone HCl 5 mg PO Q6H 7 Days #28 tablet 07/24/17 [Rx] Potassium Chloride 40 meq PO DAILY tab.er.prt 07/24/17 [Rx] Simvastatin [Zocor] 40 mg PO HS tablet 07/24/17 [Rx] predniSONE [PredniSONE] 10 mg PO DAILY 14 Days tablet 07/24/17 [Rx] Allergies/Adverse Reactions: 3 Allergy/AdvReac Type Severity Reaction Status Date / Time Penicillins Allergy Rash Verified 03/21/17 21:50 Date of admission: 07/05/17 05:18 Primary care physician: Aleksey Huggins DO Consults: 07/06/17 07:27 Consult to Glazing Machine Operator [CONS] Routine Reason for SW Consult: needs BSC on discharge. 07/06/17 15:16 Consult to Occupational Therapy [CONS] Routine Comment: Evaluate, develop and implement POC Reason for Consult: Patient wants rehab at discharge Consult to Physical Therapy [CONS] Routine Comment: Evaluate, develop and implement POC Reason for Consult: Patient wants rehab at discharge 07/07/17 13:39 Consult to Respiratory Therapy [CONS] Routine Reason for Consult: bipap qualification Call Completed: No 07/10/17 15:12 Consult to Pulmonology [CONS] Routine Consulting Provider: [facility] [place] Reason for Consult: left endobronchial debri, resp failure, hypoxia Call Completed: Yes 07/10/17 16:35 Consult to Invasive Line Access Team [CONS] Routine Reason for Consult: limited access Line Type: EPIV 07/11/17 08:37 Consult to Interventional Radiology [CONS] Routine Consulting Provider: Radiology Interventional [place] Reason for Consult: Left pleural effusion on CTA chest. Eval for pleurocentesis. Time Notified: 08:38 Call Completed: Yes - Constitutional Vitals: Temp Pulse Resp BP Pulse Ox 98.2 F 88 18 114/85 96 07/24/17 10:45 07/24/17 10:45 07/24/17 10:45 07/24/17 10:45 07/24/17 12:36 General appearance: Present: A&O X 3, morbidly obese, no acute distress, answers questions appropriately Exam: - Head Head exam: Present: atraumatic, normocephalic - Eye Eye exam: Present: PERRL, conjuntiva pink, sclera anicteric Pupils: Present: PERRL - Neck Neck exam general surgery: Present: supple, trachea midline. Absent: lymphadenopathy - Respiratory Respiratory exam: Present: CTAB, rales (right basilar crackles). Absent: accessory muscle use, rhonchi, wheezes - Cardiovascular Cardiovascular exam: Present: RRR, +S1, +S2. Absent: diastolic murmur, gallop, rubs, systolic murmur - GI/Abdominal GI/Abdominal exam: Present: distended, normal bowel sounds, soft, no peritoneal signs. Absent: tenderness - Extremities Exam Extremities exam: Present: pedal edema (+3 pitting edema improving in both lower extremities), warm, radial pulses palpable and symmetrical. Absent: calf tenderness, cyanotic - Neurological Exam Neurological exam: Present: CN II-XII intact, oriented X3, no focal deficits. Absent: pronater drift, facial droop, speech deficit - Skin Skin exam: Present: dry, intact - Patient Status Disposition: Transfer SNF Condition: Good - Discharge Instructions Instructions: Heart Failure (DC) Follow Up With: Aleksey Huggins DO [Primary Care Provider] - Additional Instructions: Decrease fluid intake. Continue with Lasix 40 mg 2 times a day. Prednisone taper as follows: 20 mg daily for 7 days, then 10 mg for 7 days, BIPAP at night and as needed - Diet and Activity Activity: wear oxygen at all times Diet: diabetic diet - VTE Documentation of Mechanical Device: Intermittent pneumatic compression device
--- NOTE | 2017-07-24 16:46 | Physician Discharge Referral ---
[facility] Referral Info Provider in Charge after Transfer: PCP - Diagnosis (1) Acute respiratory failure with hypoxia and hypercapnia Status: Acute - Transfer Medications Prescriptions: Oxycodone HCl 5 mg PO Q6H 7 Days #28 tablet predniSONE [PredniSONE] 10 mg PO DAILY 14 Days tablet Home Medications: Albuterol Sulfate [Proair Hfa] 2 puff IH Q4H PRN 09/08/15 [History] Aspirin 325 mg PO DAILY #60 tablet 09/19/15 [Rx] Ipratropium/Albuterol Neb [Duoneb] 3 ml IH [id number] PRN inh 12/08/16 [Rx] Fluticasone/Vilanterol [Breo Ellipta 100-25 Mcg INH] 1 puff IH DAILY 04/22/17 [ History] Albuterol Neb [Proventil Neb] 2.5 mg IH [id number] inhsol 04/26/17 [Rx] Melatonin 3 mg PO HS PRN tablet 04/26/17 [Rx] Nicotine Patch [Nicoderm] 14 mg TD Q24H patch.td24 04/26/17 [Rx] Oxygen 5 l NS AD 07/04/17 [History] Acetaminophen [Tylenol] 650 mg PO Q6HR PRN tablet 07/24/17 [Rx] Aspirin 325 mg PO DAILY tablet 07/24/17 [Rx] Diltiazem CD (24hr) [Cardizem CD] 360 mg PO DAILY cap.er.24h 07/24/17 [Rx] Ferrous Sulfate 325 mg PO BIDWM tablet 07/24/17 [Rx] Furosemide [Lasix] 40 mg PO BIDDIURETIC tablet 07/24/17 [Rx] Insulin DETEMIR [Levemir] 10 unit SQ BID [id number] 07/24/17 [Rx] Ipratropium/Albuterol Neb [Duoneb] 3 ml IH Q4H PRN inhsol 07/24/17 [Rx] Metoprolol [Lopressor] 50 mg PO BID tablet 07/24/17 [Rx] Nystatin POWDER [Nystop] 1 appl TP BID bottle 07/24/17 [Rx] Omeprazole [PriLOSEC] 20 mg PO DAILY@0730 capsule. 07/24/17 [Rx] Oxycodone HCl 5 mg PO Q6H 7 Days #28 tablet 07/24/17 [Rx] Potassium Chloride 40 meq PO DAILY tab.er.prt 07/24/17 [Rx] Simvastatin [Zocor] 40 mg PO HS tablet 07/24/17 [Rx] predniSONE [PredniSONE] 10 mg PO DAILY 14 Days tablet 07/24/17 [Rx] Allergies/Adverse Reactions: 3 Allergy/AdvReac Type Severity Reaction Status Date / Time Penicillins Allergy Rash Verified 03/21/17 21:50 - Respiratory Orders Oxygen / L per min ((7 Lt to keep sat between 88-92%)) Smoking Cessation: Smoking cessation has been advised. For more information, call the [place] Tobacco Quit Line at 9-295-ZBEL-NOW. - Advance Directives Code Status: Full Code - Treatments List/Other: Decrease fluid intake. Continue with Lasix 40 mg 2 times a day. Prednisone taper as follows: 20 mg daily for 7 days, then 10 mg for 7 days, BIPAP at night and as needed - Diet Orders No Added Salt (SELIN) CERTIFICATION: I certify that the transfer of the above named patient to an Extended Care Facility is necessary for the continuing treatment of the diagnosis listed. The above information is true and accurate reflection of patient's current condition. Confidential - Redisclosure prohibited without a patient's written consent.
[2017-07-25] MEDS: Ipratropium/Albuterol Neb 3 ML IH SCH ×4 (03:41→16:02)
[2017-07-25] MEDS: *HR* Enoxaparin 40 MG/0.4 ML SYRINGE SQ SCH (05:12)
[2017-07-25] MEDS: Acetylcysteine 10% 2 ML INHSOL IH SCH ×2 (08:14→16:02)
[2017-07-25] MEDS: Insulin LISPRO 300 UNITS/3 ML VIAL SQ SCH ×2 (08:23→11:45)
--- NOTE | 2017-07-25 08:26 | Internal Med Progress Note ---
<Terence Hand R - Last Filed: 07/25/17 12:45> Date of Encounter: 07/25/17 - Constitutional Vitals: Temp Pulse Resp BP Pulse Ox 97.9 F 73 15 109/74 97 07/25/17 10:21 07/25/17 10:21 07/25/17 10:21 07/25/17 10:21 07/25/17 10:21 Internal Medicine: Result - Labs CBC & Chem 7: 07/24/17 02:55 07/24/17 02:55 - ABG Interpretation ABG results: ABG ABG pH 7.40 pH Units (7.32-7.45) 07/15/17 04:50 ABG pCO2 81 mmHg (35-45) H* 07/15/17 04:50 ABG pO2 50 mmHg (85-104) L* 07/15/17 04:50 ABG O2 Saturation 82 % (95-98) L 07/15/17 04:50 PT/INR, D-dimer PT 15.5 Seconds (9.4-12.1) H 07/11/17 09:10 Consult Discharge Plan - Plan Instructions: Heart Failure (DC) Additional Instructions: Decrease fluid intake. Continue with Lasix 40 mg 2 times a day. Prednisone taper as follows: 20 mg daily for 7 days, then 10 mg for 7 days, BIPAP at night and as needed Referrals: Aleksey Huggins DO [Primary Care Provider] - Prescriptions: Oxycodone HCl 5 mg PO Q6H 7 Days #28 tablet predniSONE [PredniSONE] 10 mg PO DAILY 14 Days tablet - Attending Attestation I performed an dependent interview and examine this patient. I agree with the findings, assessment, and plan of Dr. Bennett, internal medicine international sales manager. Patient continues on high flow oxygen but clinically is doing much better. Continues with aggressive pulmonary toilet. He is diuresing well with regards to her acute on chronic diastolic CHF. She is on a beta thad. Patient has completed all antibiotics and is feeling much improved. We are working towards placement. She will need close follow-up. Heart failure discharge instructions. She will need to use BiPAP every evening and anytime she is napping. Pulses outlined above. (1) Acute respiratory failure with hypoxia and hypercapnia Current Visit: Yes Status: Acute Assessment and plan: -2/2 COPD exacerbation from pneumonia and mucous plugging and left lung atelectasis along w/ CHF exacerbation -Continue to wean FiO2 as tolerated -Patient is currently on high flow nasal cannula at 10 L/m -Did qualify for home BiPAP use -Awaiting placement to skilled rehabilitation Plan: -Acetylcysteine 10% 2 mL inhaled every 8 hours -DuoNebs 3 mL inhaled every 4 hours when necessary -Prednisone (2) Acute on chronic diastolic CHF (congestive heart failure) Current Visit: Yes Status: Acute Assessment and plan: -Good negative fluid balance overall -Lasix 40 mg by mouth twice a day -Fluid restriction diet (3) Anemia Current Visit: Yes Status: Chronic Assessment and plan: -Iron deficiency anemia -She will need colonoscopy which can be done as outpatient as her blood counts have remained fairly stable Plan: -Cyanocobalamin 1000 g by mouth daily -Ferrous sulfate 325 mg by mouth twice a day with meals Qualifiers: Anemia type: unspecified type Qualified Code(s): D64.9 - Anemia, unspecified (4) COPD (chronic obstructive pulmonary disease) Current Visit: Yes Status: Acute Assessment and plan: -Improving -Continue steroid taper -Continue bronchodilators and O2 supplementation Qualifiers: COPD type: chronic bronchitis Chronic bronchitis type: mixed simple and mucopurulent Qualified Code(s): J41.8 - Mixed simple and mucopurulent chronic bronchitis (5) Atrial fibrillation Current Visit: Yes Status: Chronic Assessment and plan: -Remains controlled -Lovenox 40 mg subcutaneous 0600 Qualifiers: Atrial fibrillation type: paroxysmal Qualified Code(s): I48.0 - Paroxysmal atrial fibrillation <Cristi Bennett - Last Filed: 07/25/17 16:00> Date of Encounter: 07/25/17 Time of Encounter: 08:26 - Assessment and plan (1) Acute respiratory failure with hypoxia and hypercapnia Current Visit: Yes Status: Acute Assessment and plan: -2/2 COPD exacerbation from pneumonia and mucous plugging and left lung atelectasis along w/ CHF exacerbation -Continue to wean FiO2 as tolerated -Patient is currently on high flow nasal cannula at 10 L/m -Did qualify for home BiPAP use -Awaiting placement to skilled rehabilitation Plan: -Acetylcysteine 10% 2 mL inhaled every 8 hours -DuoNebs 3 mL inhaled every 4 hours when necessary -Prednisone (2) Acute on chronic diastolic CHF (congestive heart failure) Current Visit: Yes Status: Acute Assessment and plan: -Good negative fluid balance overall -Lasix 40 mg by mouth twice a day -Fluid restriction diet (3) Anemia Current Visit: Yes Status: Chronic Assessment and plan: -Iron deficiency anemia -She will need colonoscopy which can be done as outpatient as her blood counts have remained fairly stable Plan: -Cyanocobalamin 1000 g by mouth daily -Ferrous sulfate 325 mg by mouth twice a day with meals Qualifiers: Anemia type: unspecified type Qualified Code(s): D64.9 - Anemia, unspecified (4) COPD (chronic obstructive pulmonary disease) Current Visit: Yes Status: Acute Assessment and plan: -Improving -Continue steroid taper -Continue bronchodilators and O2 supplementation Qualifiers: COPD type: chronic bronchitis Chronic bronchitis type: mixed simple and mucopurulent Qualified Code(s): J41.8 - Mixed simple and mucopurulent chronic bronchitis (5) Atrial fibrillation Current Visit: Yes Status: Chronic Assessment and plan: -Remains controlled -Lovenox 40 mg subcutaneous 0600 Qualifiers: Atrial fibrillation type: paroxysmal Qualified Code(s): I48.0 - Paroxysmal atrial fibrillation (6) Non-insulin dependent type 2 diabetes mellitus Current Visit: Yes Status: Chronic Assessment and plan: -Continue current insulin sliding scale regimen -Diabetic diet (7) Hypertension Current Visit: No Status: Chronic Assessment and plan: -Currently well controlled at this time -Cardizem CD 360 mg by mouth daily -Lopressor 50 mg by mouth twice a day Qualifiers: Hypertension type: essential hypertension Qualified Code(s): I10 - Essential (primary) hypertension (8) Decubitus ulcer Current Visit: Yes Status: Acute Assessment and plan: -Continue local wound care along with frequent repositioning and pressure reduction Qualifiers: Pressure ulcer location: buttock Pressure ulcer stage: stage 2 Laterality : left Qualified Code(s): L89.322 - Pressure ulcer of left buttock, stage 2 - Subjective Interval history: Patient was seen and examined at bedside this morning. States that she is feeling better today. Admits to mild, intermittent shortness of breath. Also has some swelling in the lower extremities. Denies fever, chills, nausea, vomiting, or sputum production. Discharge summary is finished; awaiting placement at this time. - Constitutional Vitals: Temp Pulse Resp BP Pulse Ox 98 F 72 12 113/73 100 07/25/17 04:36 07/25/17 06:41 07/25/17 08:18 07/25/17 06:41 07/25/17 08:18 General appearance: Present: A&O X 3, morbidly obese, no acute distress, answers questions appropriately - Head Head exam: Present: atraumatic, normocephalic - Eye Eye exam: Present: PERRL, conjuntiva pink, sclera anicteric Pupils: Present: PERRL - Neck Neck exam general surgery: Present: supple, trachea midline. Absent: lymphadenopathy - Respiratory Respiratory exam: Present: prolonged expiratory phase, rales. Absent: accessory muscle use, rhonchi, wheezes - Cardiovascular Cardiovascular exam: Present: RRR, +S1, +S2. Absent: diastolic murmur, gallop, rubs, systolic murmur - GI/Abdominal GI/Abdominal exam: Present: normal bowel sounds, soft, no peritoneal signs. Absent: distended, tenderness - Extremities Exam Extremities exam: Present: pedal edema, warm, radial pulses palpable and symmetrical. Absent: calf tenderness, cyanotic - Neurological Exam Neurological exam: Present: CN II-XII intact, oriented X3, no focal deficits. Absent: pronater drift, facial droop, speech deficit - Skin Skin exam: Present: dry, intact Internal Medicine: Result - Labs CBC & Chem 7: 07/24/17 02:55 07/24/17 02:55 - ABG Interpretation ABG results: ABG ABG pH 7.40 pH Units (7.32-7.45) 07/15/17 04:50 ABG pCO2 81 mmHg (35-45) H* 07/15/17 04:50 ABG pO2 50 mmHg (85-104) L* 07/15/17 04:50 ABG O2 Saturation 82 % (95-98) L 07/15/17 04:50 PT/INR, D-dimer PT 15.5 Seconds (9.4-12.1) H 07/11/17 09:10 - VTE Documentation of Mechanical Device: Intermittent pneumatic compression device
[2017-07-25] MEDS: Aspirin 325 MG TABLET PO SCH (08:30)
[2017-07-25] MEDS: predniSONE 20 MG TABLET PO SCH (08:31)
[2017-07-25] MEDS: Furosemide 40 MG TABLET PO SCH ×2 (08:31→17:33)
[2017-07-25] MEDS: Diltiazem CD (24hr) 180 MG CAPSULE PO SCH (08:31)
[2017-07-25] MEDS: Cyanocobalamin (B-12) 1,000 MCG TABLET PO SCH (08:31)
[2017-07-25] MEDS: Nicotine 14 MG PATCH.TD24 TD SCH (08:31)
[2017-07-25] MEDS: Nystatin POWDER 30 GM BOTTLE TP SCH (08:40)
[2017-07-25] MEDS: Insulin DETEMIR 100 UNIT/ML X5UNITS SQ SCH (10:10)
[2017-07-25 10:28] VITALS: BP 109/74
[2017-07-27] MEDS ORDERED: predniSONE 10 MG TABLET PO SCH ×2 (09:00)
== END 2017-07-25 18:15 | DRG 194 ==
LOC: 2SOUTHHOLD 14:31 → EMEROO 14:31 → 2SOUTHHOLD 19:39 → SUATTDRO 07-05 05:18 → 2SOUTHHOLD 07-05 14:34 → 2NENU 07-05 16:26 → ICNU 07-10 18:46 → 2NENU 07-20 18:07
PROVIDERS: ADMIT Nurse Practitioner Family; ATTEND Internal Medicine
PROC: ENDOBFB (2017-07-12 08:30)

== ENCOUNTER 2017-09-20 20:53 | Observation (INO) ==
[2017-09-20] MEDS ORDERED: Ipratropium/Albuterol Neb 3 ML IH ONE (21:15)
[2017-09-20] MEDS ORDERED: methylPREDNISolone 125 MG/2 ML VIAL IVP ONE (21:15)
[2017-09-20 21:34] LABS: Basophils % 0.2 %; Eosinophils # 0.3 K/mcL (0.0-0.6); Eosinophils % 2.3 %; Hemoglobin 9.6 g/dL (11.5-15.4); Immature Granulocytes % 0.5 % (0-4); Lymphocytes % 13.8 %; Mean Corpuscular Hemoglobin 27.4 pg (28.0-33.3); Mean Corpuscular Volume 88.6 fL (83.0-100.0); Mean Platelet Volume 9.4 fL (9.4-12.4); Monocytes # 0.8 K/mcL (0.0-1.3); Monocytes % 5.7 %; Neutrophils # 11.4 K/mcL (1.6-8.9); Platelet Count 462 K/mcL (140-400); Red Cell Distribution Width 18.1 % (11.5-14.5); Segmented Neutrophils % 77.5 %
--- NOTE | 2017-09-20 21:36 | Emergency Department Note ---
Disposition Clinical Impression: COPD exacerbation Fever Qualifiers: Fever type: unspecified Qualified Code(s): R50.9 - Fever, unspecified Acute and chronic respiratory failure Qualifiers: Respiratory failure complication: unspecified whether with hypoxia or hypercapnia Qualified Code(s): J96.20 - Acute and chronic respiratory failure, unspecified whether with hypoxia or hypercapnia Disposition: Admitted As Inpatient Condition: Fair SOB HPI - General Chief Complaint: ED Shortness of Breath/Dyspnea Stated Complaint: Juanjose Time Seen by Provider: 09/20/17 20:55 Source: patient, EMS Mode of arrival: EMS Limitations: no limitations Nursing Notes Reviewed: Yes Vital Signs Reviewed: Yes - History of Present Illness 56-year-old female history of oxygen-dependent COPD presents to the ER with a chief complaint of shortness of breath. Patient states she has had a cough for a few days. Today they were moving her from one bed to another at her nursing facility and she was off oxygen and felt more short of breath. States that she thinks she got really short of breath because she was being moved. She denies any chest pain. No fevers or vomiting. No recent hospitalizations. Denies prior history of CAD, DVT or pulmonary embolism. No other complaints. Pt Subjective Complaint: shortness of breath Onset (ago): day(s) Improves with: nothing Worsens with: nothing Known history of: COPD Associated symptoms: Reports: cough Treatment prior to arrival: oxygen, bronchodilator Cough present: Yes Cough Description: Involuntary Cough Frequency: Intermittent - Related Data Home oxygen amount: other (6 L) Home Medications Medication Instructions Recorded Confirmed Albuterol Sulfate [Proair Hfa] 2 puff IH Q4H PRN 09/08/15 07/04/17 Fluticasone/Vilanterol [Breo 1 puff IH DAILY 04/22/17 07/04/17 Ellipta 100-25 Mcg INH] Oxygen 5 l NS AD 07/04/17 07/04/17 Previous Rx's Medication Instructions Recorded Aspirin 325 mg PO DAILY #60 tablet 09/19/15 Ipratropium/Albuterol Neb [Duoneb] 3 ml IH [id number] PRN inh 12/08/16 Albuterol Neb [Proventil Neb] 2.5 mg IH [id number] inhsol 04/26/17 Melatonin 3 mg PO HS PRN tablet 04/26/17 Nicotine Patch [Nicoderm] 14 mg TD Q24H patch.td24 04/26/17 Acetaminophen [Tylenol] 650 mg PO Q6HR PRN tablet 07/24/17 Aspirin 325 mg PO DAILY tablet 07/24/17 Diltiazem CD (24hr) [Cardizem CD] 360 mg PO DAILY cap.er.24h 07/24/17 Ferrous Sulfate 325 mg PO BIDWM tablet 07/24/17 Furosemide [Lasix] 40 mg PO BIDDIURETIC tablet 07/24/17 Insulin DETEMIR [Levemir] 10 unit SQ BID [id number] 07/24/17 Ipratropium/Albuterol Neb [Duoneb] 3 ml IH Q4H PRN inhsol 07/24/17 Metoprolol [Lopressor] 50 mg PO BID tablet 07/24/17 Nystatin POWDER [Nystop] 1 appl TP BID bottle 07/24/17 Omeprazole [PriLOSEC] 20 mg PO DAILY@0730 capsule. 07/24/17 Oxycodone HCl 5 mg PO Q6H 7 Days #28 tablet 07/24/17 Potassium Chloride 40 meq PO DAILY tab.er.prt 07/24/17 Simvastatin [Zocor] 40 mg PO HS tablet 07/24/17 predniSONE [PredniSONE] 10 mg PO DAILY 14 Days tablet 07/24/17 Allergies Allergy/AdvReac Type Severity Reaction Status Date / Time Penicillins Allergy Rash Verified 03/21/17 21:50 All systems ED: reviewed and negative except as stated. Constitutional: Denies: fever Cardiovascular: Denies: chest pain Respiratory: Reports: dyspnea. Denies: sputum production Gastrointestinal: Denies: nausea, vomiting Past Medical History - Past Medical History Attestation: Yes The following information was validated with the patient. Source: patient Medical history: Reports: arthritis, asthma, atrial fibrillation, CHF, COPD, diabetes, GERD, hyperlipidemia, hypertension, osteoporosis, valvular heart disease, other Surgical history: Reports: non-contributory, other Psychiatric history: Reports: no psych history - Social History Smoking Status: Former smoker Smokeless Tobacco Status: No Alcohol use: Reports: rarely Drug use: Reports: none Physical Exam - General Limitations: no limitations General appearance: alert, in no apparent distress - Head Head exam: atraumatic, normocephalic - Eye Eye exam: Present: normal appearance - ENT ENT exam: normal exam - Neck Neck exam: Present: normal inspection - Chest Chest inspection: Present: normal inspection, symmetric chest wall rise - Respiratory Respiratory exam: Present: wheezes (Diffuse end-expiratory wheezing) - Cardiovascular Cardiovascular exam: Present: regular rate, normal rhythm, normal heart sounds - Abdominal Exam Abdominal exam: Present: soft, Non-Tender. Absent: tenderness - Extremities Exam Extremities exam: Present: normal inspection, full ROM - Expanded Upper Extremity Exam Shoulder exam: Present: normal inspection, full ROM Arm exam: Present: normal inspection, full ROM Elbow exam: Present: normal inspection, full ROM Forearm/Wrist exam: Present: normal inspection, full ROM Hand exam: Present: normal inspection, full ROM - Expanded Lower Extremity Exam Hip/Pelvis exam: Present: normal inspection, full ROM Upper leg exam: Present: normal inspection, full ROM Knee exam: Present: normal inspection, full ROM Lower leg exam: Present: normal inspection, full ROM Ankle exam: Present: normal inspection, full ROM, swelling (2+ lower extremity pitting edema) Foot/toe exam: Present: normal inspection, full ROM - Skin Skin exam: Present: warm, dry Course Course Narrative: Patient seen and examined. Vital signs reviewed. Febrile here. Plan for EKG, chest x-ray as well as labs. Patient given DuoNeb treatments and Solu-Medrol. - Reevaluation(s) Reevaluation #1: 88% on 6 L nasal cannula. BiPAP ordered. Vital Signs Temperature 100.8 F H 09/20/17 20:57 Pulse Rate 97 09/20/17 20:57 Respiratory Rate 22 09/20/17 20:57 Blood Pressure 136/63 09/20/17 20:57 O2 Sat by Pulse Oximetry 94 09/20/17 20:57 Temperature 100.8 F H 09/20/17 20:57 Pulse Rate 107 09/21/17 00:27 Respiratory Rate 26 09/21/17 00:52 Blood Pressure 99/66 09/21/17 00:52 O2 Sat by Pulse Oximetry 97 09/21/17 00:27 Oxygen Delivery Oxygen Delivery Bipap Shortness of Breath/Dyspnea - MDM Narrative Medical decision making narrative: 56-year-old female with shortness of breath. Worsened today when she was moved at her nursing facility. Required increasing oxygen requirements here currently on BiPAP. EKG is unchanged that ischemic findings. Chest x-ray does not show evidence of pneumonia. She does have a leukocytosis. Troponin normal. She is febrile here given Tylenol. DuoNeb nebs and steroids for COPD exacerbation as well as Levaquin. Patient admitted for acute on chronic respiratory failure, COPD exacerbation. - Lab Data Lab results reviewed: Yes I reviewed the patient's lab results. Result diagrams: 09/20/17 21:23 09/20/17 21:23 Lab Results 09/20/17 09/20/17 09/20/17 Range/Units 21:23 21:23 21:23 WBC 14.7 H (4.3-11.1) K/mcL RBC 3.50 L (3.82-4.97) M/mcL Hgb 9.6 L (11.5-15.4) g/dL Hct 31.0 L (35.3-44.9) % MCV 88.6 (83.0-100.0) fL MCH 27.4 L (28.0-33.3) pg MCHC 31.0 L (31.6-35.5) g/dL RDW 18.1 H (11.5-14.5) % Plt Count 462 H (140-400) K/mcL MPV 9.4 (9.4-12.4) fL Immature Gran % 0.5 (0-4) % Seg Neutrophils % 77.5 % Lymphocytes % 13.8 % Monocytes % 5.7 % Eosinophils % 2.3 % Basophils % 0.2 % Neutrophils # 11.4 H (1.6-8.9) K/mcL Lymphocytes # 2.0 (0.6-4.6) K/mcL Monocytes # 0.8 (0.0-1.3) K/mcL Eosinophils # 0.3 (0.0-0.6) K/mcL Basophils # 0.0 (0.0-0.2) K/mcL Sodium 137 (136-145) mEq/L Potassium 3.3 L (3.5-5.1) mEq/L Chloride 95 L (98-107) mEq/L Carbon Dioxide 31 H (23-29) mEq/L BUN 12 (6-20) mg/dL Creatinine 0.64 (0.60-1.20) mg/dL Est GFR ( Amer) > 60 (> 60) Est GFR (Non-Af Amer) > 60 (> 60) BUN/Creatinine Ratio 19 (6-26) Glucose 114 H (70-105) mg/dL Calculated Osmolality 285 (280-300) Lactic Acid (0.5-2.2) mmol/L Calcium 9.0 (8.6-10.3) mg/dL Troponin I < 0.03 (< 0.04) ng/mL B-Natriuretic Peptide 340 H (Less than 100) pg/mL Urine Color (Yellow) Urine Clarity (Clear) Urine pH (5.0-8.0) pH Units Ur Specific [place] (1.010-1.025) Urine Protein (Neg-Trace) mg/dL Urine Glucose (UA) (Normal) mg/dL Urine Ketones (Negative) mg/dL Urine Blood (Negative) Urine Nitrite (Negative) Urine Bilirubin (Negative) Urine Urobilinogen (Normal) mg/dL Ur Leukocyte Esterase (Negative) Urine Microscopic RBC (0-3) per hpf Urine Microscopic WBC (0-3) per hpf Ur Squamous Epith Cells (None-Few) per lpf Urine Bacteria (None-Few) per hpf Hyaline Casts (None-Few) per lpf Ur Culture Indicated? (NO) 09/20/17 09/21/17 Range/Units 22:13 00:21 WBC (4.3-11.1) K/mcL RBC (3.82-4.97) M/mcL Hgb (11.5-15.4) g/dL Hct (35.3-44.9) % MCV (83.0-100.0) fL MCH (28.0-33.3) pg MCHC (31.6-35.5) g/dL RDW (11.5-14.5) % Plt Count (140-400) K/mcL MPV (9.4-12.4) fL Immature Gran % (0-4) % Seg Neutrophils % % Lymphocytes % % Monocytes % % Eosinophils % % Basophils % % Neutrophils # (1.6-8.9) K/mcL Lymphocytes # (0.6-4.6) K/mcL Monocytes # (0.0-1.3) K/mcL Eosinophils # (0.0-0.6) K/mcL Basophils # (0.0-0.2) K/mcL Sodium (136-145) mEq/L Potassium (3.5-5.1) mEq/L Chloride (98-107) mEq/L Carbon Dioxide (23-29) mEq/L BUN (6-20) mg/dL Creatinine (0.60-1.20) mg/dL Est GFR ( Amer) (> 60) Est GFR (Non-Af Amer) (> 60) BUN/Creatinine Ratio (6-26) Glucose (70-105) mg/dL Calculated Osmolality (280-300) Lactic Acid 1.7 (0.5-2.2) mmol/L Calcium (8.6-10.3) mg/dL Troponin I (< 0.04) ng/mL B-Natriuretic Peptide (Less than 100) pg/mL Urine Color Dark Yellow (Yellow) Urine Clarity Cloudy A (Clear) Urine pH 5.5 (5.0-8.0) pH Units Ur Specific [place] 1.018 (1.010-1.025) Urine Protein 100 H (Neg-Trace) mg/dL Urine Glucose (UA) Normal (Normal) mg/dL Urine Ketones Trace H (Negative) mg/dL Urine Blood Moderate H (Negative) Urine Nitrite Negative (Negative) Urine Bilirubin Small H (Negative) Urine Urobilinogen Normal (Normal) mg/dL Ur Leukocyte Esterase Moderate H (Negative) Urine Microscopic RBC 30-50 H (0-3) per hpf Urine Microscopic WBC TNTC H (0-3) per hpf Ur Squamous Epith Cells Moderate H (None-Few) per lpf Urine Bacteria Moderate H (None-Few) per hpf Hyaline Casts None Seen (None-Few) per lpf Ur Culture Indicated? YES A (NO) - Radiology Data Radiology results reviewed: Yes I reviewed the patient's radiology results. Chest X-Ray 09/20/17 21:15 IMPRESSION: Stable portable study. D/ / Miriam Gavin Cha, MD / Miriam Gavin Cha, MD Interpreting Provider: Miriam Gavin Cha, MD - EKG Data EKG attestation: Yes I reviewed and interpreted this EKG. EKG results narrative: EKG demonstrates atrial fibrillation with a rate of 102. Normal axis. Normal intervals. Normal R-wave progression. Low voltage. No gross ST elevations or depressions. No acute ischemic findings. S.Latia - [place] Situation: Demographics, MOA Background: Presenting Complaint, Relevant PMH, Meds, & Allergies Assessment: Vital Signs, Course and respsone to treatment, Exam Concerns, Patient/Family Expectation, Pertinant Lab Results Recommendation: Barrier(s) to disposition, Recommendation based on pending studies, treatments, or consults [place] Report Given to: Dr. Duc Robbins Repor Time: 00:27 (Request replace potassium and respiratory infection panel)
[2017-09-20] MEDS ORDERED: Acetaminophen 325 MG TABLET PO ONE (21:37)
--- NOTE | 2017-09-20 21:56 | Emergency Department Note ---
START Narrative - START START: I examined this patient and my medical decision-making was reviewed with the Resident Physician. I agree with the documented findings, disposition and treatment plan as described except to the extent set forth below. 56 yo F here for sob. +cough. +yellow sputum production. + fevers from rehab facility. hx of copd on chronic 6L O2. will workup for pneumonia vs copd flare up duonebs. cxr
[2017-09-20 22:00] LABS: BUN/Creatinine Ratio 19 (6-26); Blood Urea Nitrogen 12 mg/dL (6-20); Carbon Dioxide 31 mEq/L (23-29); Chloride 95 mEq/L (98-107); Glucose 114 mg/dL (70-105); Osmolality,Calculated 285 (280-300); Potassium 3.3 mEq/L (3.5-5.1); Sodium 137 mEq/L (136-145); eGFR For African Americans > 60 (> 60); eGFR For Non-African Americans > 60 (> 60)
[2017-09-20 22:01] LABS: Troponin I < 0.03 ng/mL (< 0.04)
[2017-09-20] MEDS ORDERED: *HR* FentaNYL (PF) 100 MCG/2 ML VIAL IVP ONE (23:01)
[2017-09-20] MEDS ORDERED: Levofloxacin 750 MG/150 ML 750 MG/150 ML BAG IVPB ONE (23:35)
[2017-09-21 00:32] LABS: Bilirubin,Urine Small (Negative); Blood,Urine Moderate (Negative); Clarity,Urine Cloudy (Clear); Color,Urine Dark Yellow (Yellow); Glucose,Urine (UA) Normal (Normal); Ketones,Urine Trace mg/dL (Negative); Leukocyte Esterase,Urine Moderate (Negative); Nitrite,Urine Negative (Negative); PH,Urine 5.5 pH Units (5.0-8.0); Protein,Urine 100 mg/dL (Neg-Trace); Specific Gravity,Urine 1.018 (1.010-1.025); Urobilinogen,Urine Normal (Normal)
[2017-09-21 00:49] LABS: Bacteria,Urine Moderate per hpf (None-Few); Hyaline Casts,Urine None Seen per lpf (None-Few); RBC,Urine 30-50 per hpf (0-3); Squamous Epithelial Cell,Urine Moderate per lpf (None-Few); WBC,Urine TNTC per hpf (0-3)
[2017-09-21] MEDS ORDERED: Naloxone 0.4 MG/ML INJ IVP PRN (02:24)
--- NOTE | 2017-09-21 02:26 | Internal Med History&Physical ---
<Padilla Gannon - Last Filed: 09/21/17 03:22> Date of Encounter: 09/21/17 Time of Encounter: 02:26 Internal Medicine - H&P: HPI Chief complaint: SOB Admitted From: Emergency Dept Plans for Post Hospital Care: Transfer Inp Rehab Fac History of present illness: Ms. Kyle is a 56 year old female w/ pmh of COPD 6L dependent, morbid obesity , asthma, afib, chf, copd, t2dm, GERD, hld, htn, valvular heart disease presents with 1 day progressively worsening SOB at rest. Patient is currently at a rehab facility. She woke up this morning with SOB, and is has increasingly gotten worse throughout the day. She has had to increase her home O2 of 6L to improve her symptoms. She's had associated yellow phlegm productive cough for the last couple of days and feels like she may have had a fever at that time. PAtient denies calf pain, chest pain, diaphoresis, nausea, vomiting, PND, orthopnea.. Past Med Surg Social Fam HX - Past Medical History Medical history: arthritis, asthma, atrial fibrillation, CHF, COPD, diabetes, GERD, hyperlipidemia, hypertension, osteoporosis, valvular heart disease, other Psychiatric history: no psych history - Past Surgical History Surgical History: other - Social History Smoking Status: Former smoker Smokeless Tobacco Status: No Alcohol use: rarely Drug use: none - Family History Mother Living Status: Hx Family Cardiac Disorders: Yes Hx Family Endocrine Disorder: Yes (DM) Father Living Status: Hx Family Respiratory Disorders: Yes (Asthma, COPD, Emphysema) Internal Medicine - H&P: Meds Albuterol Sulfate [Proair Hfa] 2 puff IH Q4H PRN 09/08/15 [History] Aspirin 325 mg PO DAILY #60 tablet 09/19/15 [Rx] Ipratropium/Albuterol Neb [Duoneb] 3 ml IH [id number] PRN inh 12/08/16 [Rx] Fluticasone/Vilanterol [Breo Ellipta 100-25 Mcg INH] 1 puff IH DAILY 04/22/17 [ History] Albuterol Neb [Proventil Neb] 2.5 mg IH [id number] inhsol 04/26/17 [Rx] Melatonin 3 mg PO HS PRN tablet 12/20/17 [Rx] Nicotine Patch [Nicoderm] 14 mg TD Q24H patch.td24 04/26/17 [Rx] Oxygen 5 l NS AD 07/04/17 [History] Acetaminophen [Tylenol] 650 mg PO Q6HR PRN tablet 07/24/17 [Rx] Aspirin 325 mg PO DAILY tablet 07/24/17 [Rx] Diltiazem CD (24hr) [Cardizem CD] 360 mg PO DAILY cap.er.24h 07/24/17 [Rx] Ferrous Sulfate 325 mg PO BIDWM tablet 07/24/17 [Rx] Furosemide [Lasix] 40 mg PO BIDDIURETIC tablet 07/24/17 [Rx] Insulin DETEMIR [Levemir] 10 unit SQ BID [id number] 07/24/17 [Rx] Ipratropium/Albuterol Neb [Duoneb] 3 ml IH Q4H PRN inhsol 07/24/17 [Rx] Metoprolol [Lopressor] 50 mg PO BID tablet 07/24/17 [Rx] Nystatin POWDER [Nystop] 1 appl TP BID bottle 07/24/17 [Rx] Omeprazole [PriLOSEC] 20 mg PO DAILY@0730 capsule. 07/24/17 [Rx] Oxycodone HCl 5 mg PO Q6H 7 Days #28 tablet 07/24/17 [Rx] Potassium Chloride 40 meq PO DAILY tab.er.prt 07/24/17 [Rx] Simvastatin [Zocor] 40 mg PO HS tablet 07/24/17 [Rx] predniSONE [PredniSONE] 10 mg PO DAILY 14 Days tablet 07/24/17 [Rx] 3 Allergy/AdvReac Type Severity Reaction Status Date / Time Penicillins Allergy Rash Verified 03/21/17 21:50 All Systems PM: A 10-system review of systems was performed and is negative for pertinent findings except as documented above in the HPI. - Constitutional Constitutional: fatigue, lethargy, weakness, no anorexia, no chills, no excessive sweating, no fever(s), no night sweats - EENT Eyes: no change in vision, no discharge, no pain, no photophobia Ears: no ear discharge, no ear pain, no tinnitus Nose, mouth and throat: no dysphagia, no nasal discharge, no neck pain, no sore throat - Cardiovascular Cardiovascular ROS IM: dyspnea on exertion, no chest pain, no claudication, no diaphoresis, no dyspnea, no edema, no irregular heart rhythm, no lightheadedness , no orthopnea, no palpitations, no paroxysmal nocturnal dyspnea, no syncope - Respiratory Respiratory: dyspnea on exertion, chest congestion, change in phlegm color, no cough, no dyspnea, no hemoptysis, no wheezing, no snoring, no pain on inspiration, no excessive phlegm production - Gastrointestinal Gastrointestinal: no abdominal pain, no diarrhea, no hematemesis, no hematochezia, no melena, no nausea, no vomiting - Genitourinary Genitourinary: no change in urinary stream, no dysuria, no flank pain, no hematuria - Musculoskeletal Musculoskeletal ROS IM: no numbness, no tingling - Integumentary Integumentary IM: no rash, no unusual bruising - Neurological Neurological ROS: no confusion, no convulsions, no focal weakness, no numbness, no tingling, no tremor(s) - Psychiatric Psychiatric: no anxiety, no confusion, no depression - Hematologic/Lymphatic Hematologic/Lymphatic: no easy bruising - Constitutional Vitals: Temp Pulse Resp BP Pulse Ox 100.8 F H 107 26 99/66 97 09/20/17 20:57 09/21/17 00:27 09/21/17 00:52 09/21/17 00:52 09/21/17 00:27 General appearance: Present: A&O X 3, morbidly obese, pleasant, no acute distress, answers questions appropriately - Head Head exam: Present: atraumatic, normocephalic - Eye Eye exam: Present: PERRL, conjuntiva pink, sclera anicteric Pupils: Present: PERRL - Neck Neck exam general surgery: Present: supple, trachea midline. Absent: lymphadenopathy - Respiratory Respiratory exam: Present: decreased breath sounds. Absent: accessory muscle use, chest wall tenderness, prolonged expiratory phase, rales, respiratory distress, rhonchi, stridor, wheezes, tachypnea - Cardiovascular Cardiovascular exam: Present: distant heart sounds, RRR. Absent: diastolic murmur, gallop, irregular rhythm, rubs, +S3, systolic murmur, tachycardia - GI/Abdominal GI/Abdominal exam: Present: normal bowel sounds, soft, no peritoneal signs. Absent: bruit, diminished bowel sounds, distended, firm, guarding, hepatomegaly , pulsatile mass, rebound, rigid, splenomegaly, tenderness - Extremities Exam Extremities exam: Present: warm, radial pulses palpable and symmetrical. Absent : calf tenderness, cyanotic, pedal edema - Neurological Exam Neurological exam: Present: CN II-XII intact, oriented X3, no focal deficits. Absent: pronater drift, facial droop, speech deficit - Skin Skin exam: Present: dry, intact Internal Med - H&P Results - Labs CBC & Chem 7: 09/21/17 02:39 09/20/17 21:23 - Assessment and plan (1) Acute exacerbation of chronic obstructive airways disease Current Visit: Yes Status: Acute Assessment and plan: 1 day worsening COPD exacerbation requiring more O2. Patient quit smoking 3 months ago, and breathing has improved in the last couple of months. TYE and OHS can be contributing to SOB. PAtient was transferred from a nursing facility. Last abx administration was in august. Patient had leukocytosis on admission. CXR showed no acute processes. Will prophylactically treat for COPD exacerbation and work up as Viral infection. - O2 support goal SpO2 88-92% - Bipap at night - viral panel pending - o2 monitoring - continue steroids, levaquin, duonebs (2) Atrial fibrillation Current Visit: Yes Status: Chronic Assessment and plan: currently controlled. continue home rx Qualifiers: Atrial fibrillation type: paroxysmal Qualified Code(s): I48.0 - Paroxysmal atrial fibrillation (3) Diabetes mellitus Current Visit: Yes Status: Chronic Assessment and plan: hold home rx. administer low SSI Qualifiers: Diabetes mellitus type: type 2 Diabetes mellitus long term care administrator insulin use: without fdc use Diabetes mellitus complication status: with hyperglycemia Qualified Code(s): E11.65 - Type 2 diabetes mellitus with hyperglycemia (4) DVT prophylaxis Current Visit: Yes Status: Acute Assessment and plan: sq heparin (5) HLD (hyperlipidemia) Current Visit: Yes Status: Acute Assessment and plan: continue home rx Qualifiers: Hyperlipidemia type: pure hypercholesterolemia Qualified Code(s): E78.00 - Pure hypercholesterolemia, unspecified; E78.0 - Pure hypercholesterolemia (6) Hypertension Current Visit: Yes Status: Chronic Assessment and plan: stable, continue home rx Qualifiers: Hypertension type: essential hypertension Qualified Code(s): I10 - Essential (primary) hypertension (7) Hypokalemia Current Visit: Yes Status: Acute Assessment and plan: mild decreased in ED, replenished IV in ed. recheck in AM (8) Morbid obesity Current Visit: Yes Status: Chronic Assessment and plan: discussed benefits of weight loss with patient. to be followed up outpatient (9) Obesity hypoventilation syndrome Current Visit: Yes Status: Chronic Assessment and plan: see above (10) TYE (obstructive sleep apnea) Current Visit: Yes Status: Chronic Assessment and plan: see above (11) Tobacco abuse Current Visit: Yes Status: Acute Assessment and plan: patient request patch, home patch 14. (12) Urinary incontinence Current Visit: Yes Status: Acute Assessment and plan: villagomez cath placement. - strict I/O Qualifiers: Urinary Incontinence type: unspecified incontinence Qualified Code(s): R32 - Unspecified urinary incontinence (13) Congestive heart failure Current Visit: Yes Status: Acute Assessment and plan: unlikely chf exacerbation. no clinical signs. will continue home rx Qualifiers: Qualified Code(s): I50.9 - Heart failure, unspecified - Time Spent With Patient Total time spent is greater than 50% in coordination of care (as documented) at patient's floor/unit and/or counseling patient: <[email or web address] - Last Filed: 09/21/17 04:36> Date of Encounter: 09/21/17 Internal Medicine - H&P: HPI History of present illness: Ms. Kyle is a 56 year old female All Systems PM: A 10-system review of systems was performed and is negative for pertinent findings except as documented above in the HPI. - Constitutional Vitals: Temp Pulse Resp BP Pulse Ox 98.6 F 92 19 105/51 95 09/21/17 02:13 09/21/17 02:13 09/21/17 03:17 09/21/17 02:13 09/21/17 03:17 Internal Med - H&P Results - Labs CBC & Chem 7: 09/21/17 02:39 09/21/17 02:39 - Attending Attestation Pt independently seen and examined at bedside Presented for ECF for acute on chronic respiratory failure secondary to COPD exacerbation. was found to have a UTI in ER continue systemic steroids, bronchodilator support, IV abx monitor O2 sat, goal O2 sat: 88-92% bipap support f/u blood and urine culture continue home meds Case discussed with resident physician Padilla Gannon, I agree with his documented findings, assessment, and plan except as listed above. - Assessment and plan (1) Acute exacerbation of chronic obstructive airways disease Current Visit: Yes Status: Acute (2) DVT prophylaxis Current Visit: Yes Status: Acute (3) Atrial fibrillation Current Visit: Yes Status: Chronic Qualifiers: Atrial fibrillation type: paroxysmal Qualified Code(s): I48.0 - Paroxysmal atrial fibrillation (4) Morbid obesity Current Visit: Yes Status: Chronic (5) TYE (obstructive sleep apnea) Current Visit: Yes Status: Chronic (6) Hypokalemia Current Visit: Yes Status: Acute (7) Tobacco abuse Current Visit: Yes Status: Acute (8) Hypertension Current Visit: Yes Status: Chronic Qualifiers: Hypertension type: essential hypertension Qualified Code(s): I10 - Essential (primary) hypertension (9) Diabetes mellitus Current Visit: Yes Status: Chronic Qualifiers: Diabetes mellitus type: type 2 Diabetes mellitus fdc insulin use: without fdc use Diabetes mellitus complication status: with hyperglycemia Qualified Code(s): E11.65 - Type 2 diabetes mellitus with hyperglycemia (10) Obesity hypoventilation syndrome Current Visit: Yes Status: Chronic (11) HLD (hyperlipidemia) Current Visit: Yes Status: Acute Qualifiers: Hyperlipidemia type: pure hypercholesterolemia Qualified Code(s): E78.00 - Pure hypercholesterolemia, unspecified; E78.0 - Pure hypercholesterolemia (12) Urinary incontinence Current Visit: Yes Status: Acute Qualifiers: Urinary Incontinence type: unspecified incontinence Qualified Code(s): R32 - Unspecified urinary incontinence (13) Congestive heart failure Current Visit: Yes Status: Acute Qualifiers: Qualified Code(s): I50.9 - Heart failure, unspecified - Time Spent With Patient Total time spent is greater than 50% in coordination of care (as documented) at patient's floor/unit and/or counseling patient:
[2017-09-21] MEDS ORDERED: Melatonin 3 MG TABLET PO PRN (02:44)
[2017-09-21] MEDS ORDERED: Acetaminophen 325 MG TABLET PO PRN ×2 (02:44→13:49)
[2017-09-21] MEDS ORDERED: *HR* Dextrose 50 % in Water (Syg) 50 ML SYRINGE IVP PRN (02:46)
[2017-09-21] MEDS ORDERED: Dextrose Gel 15 GM/37.5 ML TUBE PO PRN ×2 (02:46)
[2017-09-21] MEDS ORDERED: D5% in Water 1,000 ML IVC PRN (02:46)
[2017-09-21 03:09] LABS: Adenovirus Not Detected (Not Detect); Bordetella Pertussis Not Detected (Not Detect); Chlamydophila pneumoniae Not Detected (Not Detect); Coronavirus 229E Not Detected (Not Detect); Coronavirus HKU1 Not Detected (Not Detect); Coronavirus NL63 Not Detected (Not Detect); Coronavirus OC43 Not Detected (Not Detect); Human Metapneumovirus Not Detected (Not Detect); Human Rhinovirus/Enterovirus Not Detected (Not Detect); Influenza A Subtype 2009 H1 Not Detected (Not Detect); Influenza A Untypeable Not Detected (Not Detect); Influenza B Not Detected (Not Detect); Mycoplasma pneumoniae Not Detected (Not Detect); Parainfluenza Virus 1 Not Detected (Not Detect); Parainfluenza Virus 2 Not Detected (Not Detect); Parainfluenza Virus 3 Not Detected (Not Detect); Parainfluenza Virus 4 Not Detected (Not Detect); Respiratory Syncytial Virus Not Detected (Not Detect)
[2017-09-21] MEDS: Ipratropium/Albuterol Neb 3 ML IH SCH ×4 (03:17→19:33)
[2017-09-21 03:19] LABS: Basophils % 0.1 %; Eosinophils % 0.1 %; Hematocrit 29.1 % (35.3-44.9); Immature Granulocytes % 0.7 % (0-4); Lymphocytes # 1.1 K/mcL (0.6-4.6); Lymphocytes % 6.3 %; Mean Corpuscular HGB Conc 30.9 g/dL (31.6-35.5); Mean Corpuscular Hemoglobin 27.4 pg (28.0-33.3); Mean Corpuscular Volume 88.4 fL (83.0-100.0); Mean Platelet Volume 9.9 fL (9.4-12.4); Monocytes # 0.3 K/mcL (0.0-1.3); Monocytes % 1.7 %; Neutrophils # 15.3 K/mcL (1.6-8.9); Platelet Count 460 K/mcL (140-400); Red Blood Count 3.29 M/mcL (3.82-4.97); Red Cell Distribution Width 17.7 % (11.5-14.5); Segmented Neutrophils % 91.1 %
[2017-09-21] MEDS: *HR* OxyCODONE Immed Rel 5 MG TABLET PO SCH ×2 (03:29→09:55)
[2017-09-21 03:36] LABS: Alanine Aminotransferase 3 Units/L (7-52); Albumin 2.8 g/dL (3.5-5.7); Albumin/Globulin Ratio 0.6 (1.1-2.2); Alkaline Phosphatase 68 Units/L (34-104); Aspartate Amino Transferase 7 Units/L (13-39); BUN/Creatinine Ratio 19 (6-26); Bilirubin,Total 0.8 mg/dL (0.3-1.0); Blood Urea Nitrogen 12 mg/dL (6-20); Calcium 8.7 mg/dL (8.6-10.3); Carbon Dioxide 28 mEq/L (23-29); Chloride 95 mEq/L (98-107); Globulin 4.4 g/dL (2.4-3.5); Glucose 182 mg/dL (70-105); Osmolality,Calculated 284 (280-300); Sodium 135 mEq/L (136-145); Total Protein 7.2 g/dL (6.4-8.9); eGFR For African Americans > 60 (> 60); eGFR For Non-African Americans > 60 (> 60)
[2017-09-21] MEDS: *HR* Heparin 5,000 UNIT/ML VIAL SQ SCH ×2 (06:23→17:50)
[2017-09-21] MEDS ORDERED: [Breo Ellipta 100-25 Mcg IH SCH (09:00)
[2017-09-21] MEDS ORDERED: Nicotine 14 MG PATCH.TD24 TD SCH (09:00)
[2017-09-21] MEDS: Diltiazem CD (24hr) 180 MG CAPSULE PO SCH ×2 (09:55→10:00)
[2017-09-21] MEDS: Furosemide 40 MG TABLET PO SCH ×2 (09:56→17:50)
[2017-09-21] MEDS: levoFLOXacin 750 MG TABLET PO SCH (09:56)
[2017-09-21] MEDS: methylPREDNISolone 125 MG/2 ML VIAL IVP SCH ×2 (09:56→17:50)
[2017-09-21] MEDS: Nystatin POWDER 30 GM BOTTLE TP SCH (09:57)
[2017-09-21] MEDS: Nicotine 14 MG PATCH.TD24 TD SCH (10:08)
[2017-09-21] MEDS: Insulin LISPRO 300 UNITS/3 ML VIAL SQ SCH ×4 (10:12→21:40)
--- NOTE | 2017-09-21 11:54 | Event Note ---
Date of Encounter: 09/21/17 Time of Encounter: 11:53 Patient continues to have shortness of breath and wheezing. Also reported fever last night prior to arrival here. She is Concerned that she may be developing pneumonia. Continue treatment for acute on chronic respiratory failure and COPD exacerbation. Continue bronchodilators, steroids. Leukocytosis worse today likely due to steroid use. We will monitor for now. Continue levofloxacin.
[2017-09-21] MEDS ORDERED: *HR* OxyCODONE Immed Rel 5 MG TABLET PO PRN (13:48)
[2017-09-21] MEDS: Budesonide/Formoterol 80/4.5 MDI IH SCH (19:34)
[2017-09-21] MEDS ORDERED: Insulin LISPRO 300 UNITS/3 ML VIAL SQ SCH (21:00)
[2017-09-21] MEDS: Insulin DETEMIR 100 UNIT/ML X5UNITS SQ SCH (21:40)
[2017-09-22] MEDS: methylPREDNISolone 125 MG/2 ML VIAL IVP SCH ×2 (00:34→08:40)
[2017-09-22] MEDS: Nystatin POWDER 30 GM BOTTLE TP SCH ×3 (00:36→20:44)
[2017-09-22] MEDS: *HR* Heparin 5,000 UNIT/ML VIAL SQ SCH ×2 (05:10→17:45)
[2017-09-22] MEDS: Ipratropium/Albuterol Neb 3 ML IH SCH ×4 (05:13→21:02)
[2017-09-22] MEDS: Insulin LISPRO 300 UNITS/3 ML VIAL SQ SCH ×6 (08:34→20:43)
[2017-09-22] MEDS: Nicotine 14 MG PATCH.TD24 TD SCH (08:36)
[2017-09-22] MEDS: Diltiazem CD (24hr) 180 MG CAPSULE PO SCH (08:37)
[2017-09-22] MEDS: levoFLOXacin 750 MG TABLET PO SCH (08:37)
[2017-09-22] MEDS: Furosemide 40 MG TABLET PO SCH (08:37)
[2017-09-22] MEDS: Aspirin 325 MG TABLET PO SCH (08:38)
[2017-09-22] MEDS: Insulin DETEMIR 100 UNIT/ML X5UNITS SQ SCH ×2 (08:45→20:43)
[2017-09-22] MEDS: Budesonide/Formoterol 80/4.5 MDI IH SCH ×2 (10:42→21:02)
--- NOTE | 2017-09-22 15:32 | Internal Med Progress Note ---
Date of Encounter: 09/22/17 Time of Encounter: 10:15 - Assessment and plan (1) Acute exacerbation of chronic obstructive airways disease Current Visit: Yes Status: Acute Assessment and plan: Continue bronchodilators. We will transition to oral steroids. O2 supplementation. We will use BiPAP as needed. Wean FiO2 as tolerated. Moderate risk for complications. (2) Atrial fibrillation Current Visit: Yes Status: Chronic Assessment and plan: Rate controlled. Not on anticoagulation at this time. Qualifiers: Atrial fibrillation type: paroxysmal Qualified Code(s): I48.0 - Paroxysmal atrial fibrillation (3) Morbid obesity Current Visit: Yes Status: Chronic (4) TYE (obstructive sleep apnea) Current Visit: Yes Status: Chronic (5) Hypokalemia Current Visit: Yes Status: Acute Assessment and plan: Continue repletion (6) Tobacco abuse Current Visit: Yes Status: Chronic Assessment and plan: On nicotine patch (7) Hypertension Current Visit: Yes Status: Chronic Assessment and plan: Blood pressure is well controlled Qualifiers: Hypertension type: essential hypertension Qualified Code(s): I10 - Essential (primary) hypertension (8) Diabetes mellitus Current Visit: Yes Status: Chronic Assessment and plan: Will increase insulin regimen as patient's blood sugars remain elevated. Place on nutritional coverage in addition to long-acting insulin sliding scale coverage Qualifiers: Diabetes mellitus type: type 2 Diabetes mellitus senior care insulin use: without superintendent marine oil terminal use Diabetes mellitus complication status: with hyperglycemia Qualified Code(s): E11.65 - Type 2 diabetes mellitus with hyperglycemia (9) Obesity hypoventilation syndrome Current Visit: Yes Status: Chronic Assessment and plan: BiPAP use as needed (10) HLD (hyperlipidemia) Current Visit: Yes Status: Chronic Assessment and plan: Continue simvastatin Qualifiers: Hyperlipidemia type: mixed hyperlipidemia Qualified Code(s): E78.2 - Mixed hyperlipidemia (11) Urinary incontinence Current Visit: Yes Status: Acute Assessment and plan: Leigh catheter has been in place. Urine is growing gram-negative rods. Continue levofloxacin Qualifiers: Urinary Incontinence type: unspecified incontinence Qualified Code(s): R32 - Unspecified urinary incontinence (12) Congestive heart failure Current Visit: Yes Status: Chronic Assessment and plan: not in acute exacerbation. Continue Lasix. Will resume home dose at 60 mg by mouth twice a day Qualifiers: Heart failure type: diastolic Heart failure chronicity: chronic Qualified Code(s): I50.32 - Chronic diastolic (congestive) heart failure (13) DVT prophylaxis Current Visit: Yes Status: Acute Assessment and plan: Continue subcutaneous heparin - Time Spent With Patient Total time spent is greater than 50% in coordination of care (as documented) at patient's floor/unit and/or counseling patient: - Subjective Interval history: Patient is feeling somewhat better today. Continues to require increased O2 supplementation about her baseline. Does report wheezing. No dysuria or hematuria. No nausea or vomiting. No chest pain. - Constitutional Vitals: Temp Pulse Resp BP Pulse Ox 97.9 F 74 20 107/66 95 09/22/17 11:35 09/22/17 11:35 09/22/17 11:35 09/22/17 11:35 09/22/17 11:35 General appearance: Present: A&O X 3, morbidly obese, pleasant, no acute distress, answers questions appropriately - Respiratory Respiratory exam: Present: decreased breath sounds (Diminished breath sounds bilaterally), prolonged expiratory phase, wheezes. Absent: accessory muscle use , rales, rhonchi - Cardiovascular Cardiovascular exam: Present: RRR, +S1, +S2. Absent: diastolic murmur, gallop, rubs, systolic murmur - GI/Abdominal GI/Abdominal exam: Present: normal bowel sounds, soft, no peritoneal signs. Absent: distended, tenderness - Extremities Exam Extremities exam: Present: warm, radial pulses palpable and symmetrical. Absent : calf tenderness, cyanotic, pedal edema - Neurological Exam Neurological exam: Present: alert, oriented X3, no focal deficits, strengths equal and symetr throughout. Absent: facial droop, speech deficit Internal Medicine: Result - Labs CBC & Chem 7: 09/21/17 02:39 09/21/17 02:39 Consult Discharge Plan - Plan Referrals: Aleksey Huggins DO [Primary Care Provider] -
--- NOTE | 2017-09-22 22:55 | Electrocardiograph Report ---
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
[2017-09-23] MEDS: Ipratropium/Albuterol Neb 3 ML IH SCH ×4 (03:59→22:02)
[2017-09-23 04:57] LABS: Basophils % 0.1 %; Hematocrit 28.4 % (35.3-44.9); Hemoglobin 8.4 g/dL (11.5-15.4); Immature Granulocytes % 1.3 % (0-4); Lymphocytes % 6.3 %; Mean Corpuscular HGB Conc 29.6 g/dL (31.6-35.5); Mean Corpuscular Volume 91.3 fL (83.0-100.0); Mean Platelet Volume 9.8 fL (9.4-12.4); Monocytes # 0.7 K/mcL (0.0-1.3); Monocytes % 4.3 %; Neutrophils # 14.5 K/mcL (1.6-8.9); Platelet Count 533 K/mcL (140-400); Red Blood Count 3.11 M/mcL (3.82-4.97); Red Cell Distribution Width 17.9 % (11.5-14.5)
[2017-09-23 05:20] LABS: BUN/Creatinine Ratio 41 (6-26); Blood Urea Nitrogen 25 mg/dL (6-20); Calcium 8.9 mg/dL (8.6-10.3); Carbon Dioxide 35 mEq/L (23-29); Chloride 101 mEq/L (98-107); Glucose 258 mg/dL (70-105); Osmolality,Calculated 305 (280-300); Potassium 3.6 mEq/L (3.5-5.1); Sodium 141 mEq/L (136-145); eGFR For African Americans > 60 (> 60); eGFR For Non-African Americans > 60 (> 60)
[2017-09-23] MEDS: *HR* Heparin 5,000 UNIT/ML VIAL SQ SCH ×2 (05:29→17:42)
[2017-09-23] MEDS: levoFLOXacin 750 MG TABLET PO SCH (08:02)
[2017-09-23] MEDS: Aspirin 325 MG TABLET PO SCH (08:03)
[2017-09-23] MEDS: Insulin LISPRO 300 UNITS/3 ML VIAL SQ SCH ×7 (08:03→20:48)
[2017-09-23] MEDS: Nicotine 14 MG PATCH.TD24 TD SCH (08:04)
[2017-09-23] MEDS: Diltiazem CD (24hr) 180 MG CAPSULE PO SCH (08:14)
[2017-09-23] MEDS ORDERED: predniSONE 20 MG TABLET PO SCH (09:00)
[2017-09-23] MEDS: Insulin DETEMIR 100 UNIT/ML X5UNITS SQ SCH ×2 (09:16→20:47)
[2017-09-23] MEDS: Nystatin POWDER 30 GM BOTTLE TP SCH ×2 (09:17→20:49)
[2017-09-23] MEDS: Budesonide/Formoterol 80/4.5 MDI IH SCH ×2 (10:04→22:02)
--- NOTE | 2017-09-23 13:31 | Internal Med Progress Note ---
Date of Encounter: 09/23/17 Time of Encounter: 13:29 - Assessment and plan (1) Acute exacerbation of chronic obstructive airways disease Current Visit: Yes Status: Acute Assessment and plan: Improving overall. Patient back on her baseline home oxygen. Will continue O2 supplementation. Transitioned to oral steroids. Continue Levaquin (2) Atrial fibrillation Current Visit: Yes Status: Chronic Assessment and plan: Rate controlled. Not on anticoagulation due to anemia Qualifiers: Atrial fibrillation type: paroxysmal Qualified Code(s): I48.0 - Paroxysmal atrial fibrillation (3) Morbid obesity Current Visit: Yes Status: Chronic (4) TYE (obstructive sleep apnea) Current Visit: Yes Status: Chronic Assessment and plan: Use BiPAP as needed. (5) Hypokalemia Current Visit: Yes Status: Resolved (6) Tobacco abuse Current Visit: Yes Status: Chronic Assessment and plan: On nicotine patch (7) Hypertension Current Visit: Yes Status: Chronic Assessment and plan: Blood pressure is well controlled at this time Qualifiers: Hypertension type: essential hypertension Qualified Code(s): I10 - Essential (primary) hypertension (8) Diabetes mellitus Current Visit: Yes Status: Chronic Assessment and plan: Blood sugars remain elevated. We will increase long-acting insulin dosage to 15 units twice daily. Also increase nutritional coverage to 10 units 3 times a day. Continue high correctional scale. Qualifiers: Diabetes mellitus type: type 2 Diabetes mellitus care home insulin use: without terminal superintendent use Diabetes mellitus complication status: with hyperglycemia Qualified Code(s): E11.65 - Type 2 diabetes mellitus with hyperglycemia (9) Obesity hypoventilation syndrome Current Visit: Yes Status: Chronic (10) HLD (hyperlipidemia) Current Visit: Yes Status: Chronic Assessment and plan: Continue simvastatin Qualifiers: Hyperlipidemia type: mixed hyperlipidemia Qualified Code(s): E78.2 - Mixed hyperlipidemia (11) Urinary incontinence Current Visit: Yes Status: Chronic Assessment and plan: Leigh catheter in place. We will attempt voiding trial today. Qualifiers: Urinary Incontinence type: unspecified incontinence Qualified Code(s): R32 - Unspecified urinary incontinence (12) Congestive heart failure Current Visit: Yes Status: Chronic Assessment and plan: Has had good negative fluid balance during this hospital stay. Continue Lasix 60 mg twice daily Qualifiers: Heart failure type: diastolic Heart failure chronicity: chronic Qualified Code(s): I50.32 - Chronic diastolic (congestive) heart failure (13) DVT prophylaxis Current Visit: Yes Status: Acute Assessment and plan: On subcutaneous heparin (14) Urinary tract infection Current Visit: Yes Status: Acute Assessment and plan: Urine culture growing Acinetobacter sensitive to Levaquin. Continue Levaquin. Will DC Leigh catheter if possible Qualifiers: Urinary tract infection type: acute cystitis Hematuria presence: with hematuria Qualified Code(s): N30.01 - Acute cystitis with hematuria - Time Spent With Patient Total time spent is greater than 50% in coordination of care (as documented) at patient's floor/unit and/or counseling patient: - Subjective Interval history: Patient is feeling much better today. Denies any chest pain or palpitations. Is currently on 6 L nasal cannula which is her baseline. No fever reported overnight. No nausea or vomiting. No dysuria or hematuria. - Constitutional Vitals: Temp Pulse Resp BP Pulse Ox 98.2 F 61 16 104/68 97 09/23/17 11:00 09/23/17 11:00 09/23/17 11:00 09/23/17 11:00 09/23/17 11:00 General appearance: Present: A&O X 3, morbidly obese, pleasant, no acute distress, answers questions appropriately - Neck Neck exam general surgery: Present: supple, trachea midline. Absent: lymphadenopathy - Respiratory Respiratory exam: Present: decreased breath sounds (Diminished breath sounds bilaterally), wheezes. Absent: accessory muscle use, rales, rhonchi - Cardiovascular Cardiovascular exam: Present: RRR, +S1, +S2. Absent: diastolic murmur, gallop, rubs, systolic murmur - GI/Abdominal GI/Abdominal exam: Present: normal bowel sounds, soft, no peritoneal signs. Absent: distended, tenderness - Extremities Exam Extremities exam: Present: warm, radial pulses palpable and symmetrical. Absent : calf tenderness, cyanotic, pedal edema - Neurological Exam Neurological exam: Present: CN II-XII intact, oriented X3, no focal deficits. Absent: facial droop, speech deficit Internal Medicine: Result - Labs CBC & Chem 7: 09/23/17 04:23 09/23/17 04:23 Labs: Short CBC 09/23/17 Range/Units 04:23 WBC 16.4 H (4.3-11.1) K/mcL Hgb 8.4 L (11.5-15.4) g/dL Hct 28.4 L (35.3-44.9) % Plt Count 533 H (140-400) K/mcL Neutrophils # 14.5 H (1.6-8.9) K/mcL BMP 09/23/17 04:23 Sodium 141 Potassium 3.6 Chloride 101 Carbon Dioxide 35 H BUN 25 H Creatinine 0.61 Glucose 258 H Calcium 8.9 Consult Discharge Plan - Plan Referrals: Aleksey Huggins DO [Primary Care Provider] -
[2017-09-24] MEDS: Ipratropium/Albuterol Neb 3 ML IH SCH ×4 (04:07→21:39)
[2017-09-24 04:34] LABS: Basophils % 0.2 %; Hematocrit 28.8 % (35.3-44.9); Hemoglobin 8.5 g/dL (11.5-15.4); Immature Granulocytes % 1.7 % (0-4); Lymphocytes # 1.8 K/mcL (0.6-4.6); Lymphocytes % 13.3 %; Mean Corpuscular HGB Conc 29.5 g/dL (31.6-35.5); Mean Corpuscular Hemoglobin 26.7 pg (28.0-33.3); Mean Corpuscular Volume 90.6 fL (83.0-100.0); Mean Platelet Volume 9.5 fL (9.4-12.4); Monocytes # 0.7 K/mcL (0.0-1.3); Monocytes % 5.5 %; Neutrophils # 10.8 K/mcL (1.6-8.9); Platelet Count 516 K/mcL (140-400); Red Blood Count 3.18 M/mcL (3.82-4.97); Red Cell Distribution Width 17.8 % (11.5-14.5); Segmented Neutrophils % 79.3 %
[2017-09-24 04:54] LABS: BUN/Creatinine Ratio 44 (6-26); Blood Urea Nitrogen 27 mg/dL (6-20); Carbon Dioxide 35 mEq/L (23-29); Chloride 103 mEq/L (98-107); Glucose 211 mg/dL (70-105); Osmolality,Calculated 307 (280-300); Potassium 3.6 mEq/L (3.5-5.1); Sodium 143 mEq/L (136-145); eGFR For African Americans > 60 (> 60); eGFR For Non-African Americans > 60 (> 60)
[2017-09-24] MEDS: *HR* Heparin 5,000 UNIT/ML VIAL SQ SCH ×2 (05:19→17:45)
[2017-09-24] MEDS: Insulin LISPRO 300 UNITS/3 ML VIAL SQ SCH ×7 (08:13→20:48)
[2017-09-24] MEDS: Aspirin 325 MG TABLET PO SCH (08:30)
[2017-09-24] MEDS: Insulin DETEMIR 100 UNIT/ML X5UNITS SQ SCH ×2 (08:30→20:49)
[2017-09-24] MEDS: Diltiazem CD (24hr) 180 MG CAPSULE PO SCH (08:30)
[2017-09-24] MEDS: predniSONE 20 MG TABLET PO SCH (08:31)
[2017-09-24] MEDS: Nicotine 14 MG PATCH.TD24 TD SCH (08:31)
[2017-09-24] MEDS: levoFLOXacin 750 MG TABLET PO SCH (08:32)
[2017-09-24] MEDS: Nystatin POWDER 30 GM BOTTLE TP SCH ×2 (08:32→20:49)
[2017-09-24] MEDS: Budesonide/Formoterol 80/4.5 MDI IH SCH ×2 (10:14→21:39)
--- NOTE | 2017-09-24 10:46 | Internal Med Progress Note ---
Date of Encounter: 09/24/17 Time of Encounter: 10:40 - Assessment and plan (1) Acute exacerbation of chronic obstructive airways disease Current Visit: Yes Status: Acute Assessment and plan: Will continue to treat with prednisone, Levaquin and bronchodilators. Taper steroids. If patient continues to do well, she should be stable for discharge tomorrow once her insurance authorization completed. (2) Atrial fibrillation Current Visit: Yes Status: Chronic Assessment and plan: Rate controlled. Not on anticoagulation due to anemia Qualifiers: Atrial fibrillation type: paroxysmal Qualified Code(s): I48.0 - Paroxysmal atrial fibrillation (3) Morbid obesity Current Visit: Yes Status: Chronic (4) TYE (obstructive sleep apnea) Current Visit: Yes Status: Chronic Assessment and plan: Use CPAP when lying down (5) Hypokalemia Current Visit: Yes Status: Resolved (6) Tobacco abuse Current Visit: Yes Status: Chronic (7) Hypertension Current Visit: Yes Status: Chronic Assessment and plan: Remains well controlled. Qualifiers: Hypertension type: essential hypertension Qualified Code(s): I10 - Essential (primary) hypertension (8) Diabetes mellitus Current Visit: Yes Status: Chronic Assessment and plan: Improved control. Continue current insulin regimen. Qualifiers: Diabetes mellitus type: type 2 Diabetes mellitus extermination supervisor insulin use: without extermination supervisor use Diabetes mellitus complication status: with hyperglycemia Qualified Code(s): E11.65 - Type 2 diabetes mellitus with hyperglycemia (9) Obesity hypoventilation syndrome Current Visit: Yes Status: Chronic (10) HLD (hyperlipidemia) Current Visit: Yes Status: Chronic Assessment and plan: Continue simvastatin Qualifiers: Hyperlipidemia type: mixed hyperlipidemia Qualified Code(s): E78.2 - Mixed hyperlipidemia (11) Urinary incontinence Current Visit: Yes Status: Chronic Assessment and plan: Will DC Leigh catheter today and do a voiding trial. Qualifiers: Urinary Incontinence type: unspecified incontinence Qualified Code(s): R32 - Unspecified urinary incontinence (12) Congestive heart failure Current Visit: Yes Status: Chronic Assessment and plan: Continue oral Lasix Qualifiers: Heart failure type: diastolic Heart failure chronicity: chronic Qualified Code(s): I50.32 - Chronic diastolic (congestive) heart failure (13) DVT prophylaxis Current Visit: Yes Status: Acute Assessment and plan: On subcutaneous heparin (14) Urinary tract infection Current Visit: Yes Status: Acute Assessment and plan: With Acinetobacter. Continue Levaquin Qualifiers: Urinary tract infection type: acute cystitis Hematuria presence: with hematuria Qualified Code(s): N30.01 - Acute cystitis with hematuria - Time Spent With Patient Total time spent is greater than 50% in coordination of care (as documented) at patient's floor/unit and/or counseling patient: - Subjective Interval history: Patient continues to improve. Denies any chest pain or palpitations. Breathing is better now. On 6 L nasal cannula. No dysuria. - Constitutional Vitals: Temp Pulse Resp BP Pulse Ox 97.2 F L 82 16 112/74 98 09/24/17 07:16 09/24/17 07:16 09/24/17 07:16 09/24/17 07:16 09/24/17 07:16 General appearance: Present: A&O X 3, morbidly obese, pleasant, no acute distress, answers questions appropriately - Neck Neck exam general surgery: Present: supple, trachea midline. Absent: lymphadenopathy - Respiratory Respiratory exam: Present: prolonged expiratory phase, wheezes (Bilateral). Absent: accessory muscle use, rales, rhonchi - Cardiovascular Cardiovascular exam: Present: RRR, +S1, +S2. Absent: diastolic murmur, gallop, rubs, systolic murmur - GI/Abdominal GI/Abdominal exam: Present: normal bowel sounds, soft, no peritoneal signs. Absent: distended, tenderness - Extremities Exam Extremities exam: Present: warm, radial pulses palpable and symmetrical. Absent : calf tenderness, cyanotic, pedal edema Internal Medicine: Result - Labs CBC & Chem 7: 09/24/17 04:10 09/24/17 04:10 Labs: Short CBC 09/24/17 Range/Units 04:10 WBC 13.6 H (4.3-11.1) K/mcL Hgb 8.5 L (11.5-15.4) g/dL Hct 28.8 L (35.3-44.9) % Plt Count 516 H (140-400) K/mcL Neutrophils # 10.8 H (1.6-8.9) K/mcL BMP 09/24/17 04:10 Sodium 143 Potassium 3.6 Chloride 103 Carbon Dioxide 35 H BUN 27 H Creatinine 0.61 Glucose 211 H Calcium 9.0 Consult Discharge Plan - Plan Referrals: Aleksey Huggins DO [Primary Care Provider] -
[2017-09-25] MEDS: Ipratropium/Albuterol Neb 3 ML IH SCH ×3 (03:31→16:34)
[2017-09-25] MEDS: *HR* Heparin 5,000 UNIT/ML VIAL SQ SCH ×2 (05:08→17:29)
[2017-09-25] MEDS: Insulin LISPRO 300 UNITS/3 ML VIAL SQ SCH ×6 (08:48→17:25)
[2017-09-25] MEDS: predniSONE 20 MG TABLET PO SCH (08:56)
[2017-09-25] MEDS: Aspirin 325 MG TABLET PO SCH (08:56)
[2017-09-25] MEDS: Diltiazem CD (24hr) 180 MG CAPSULE PO SCH (08:57)
[2017-09-25] MEDS: levoFLOXacin 750 MG TABLET PO SCH (08:57)
[2017-09-25] MEDS: Nicotine 14 MG PATCH.TD24 TD SCH (08:58)
[2017-09-25] MEDS: Insulin DETEMIR 100 UNIT/ML X5UNITS SQ SCH (08:59)
[2017-09-25] MEDS: Nystatin POWDER 30 GM BOTTLE TP SCH (09:00)
[2017-09-25] MEDS: Budesonide/Formoterol 80/4.5 MDI IH SCH (11:01)
--- NOTE | 2017-09-25 12:49 | Discharge Summary ---
- NOTES TO OUTPATIENT PROVIDER Notes to Outpatient Provider: Patient admitted with acute on chronic respiratory failure due to acute COPD exacerbation and UTI. Treated with IV antibiotics, bronchodilators and steroids. Improving overall. Urine culture positive for wrist and Enterobacter. Likely related to urinary catheter. Urinary catheter has been. Patient is voiding normally now. She will be discharged to skilled rehabilitation once she is accepted there. Date of Encounter: 09/25/17 Time of Encounter: 12:40 - Discharge Diagnosis (1) Acute exacerbation of chronic obstructive airways disease Priority: Primary Status: Acute (2) Atrial fibrillation Priority: Secondary Status: Chronic Qualifiers: Atrial fibrillation type: paroxysmal Qualified Code(s): I48.0 - Paroxysmal atrial fibrillation (3) Morbid obesity Priority: Secondary Status: Chronic (4) TYE (obstructive sleep apnea) Priority: Secondary Status: Chronic (5) Hypokalemia Priority: Secondary Status: Resolved (6) Tobacco abuse Priority: Secondary Status: Chronic (7) Hypertension Priority: Secondary Status: Chronic Qualifiers: Hypertension type: essential hypertension Qualified Code(s): I10 - Essential (primary) hypertension (8) Diabetes mellitus Priority: Secondary Status: Chronic Qualifiers: Diabetes mellitus type: type 2 Diabetes mellitus [facility] insulin use: without termite technician use Diabetes mellitus complication status: with hyperglycemia Qualified Code(s): E11.65 - Type 2 diabetes mellitus with hyperglycemia (9) Obesity hypoventilation syndrome Priority: Secondary Status: Chronic (10) HLD (hyperlipidemia) Priority: Secondary Status: Chronic Qualifiers: Hyperlipidemia type: mixed hyperlipidemia Qualified Code(s): E78.2 - Mixed hyperlipidemia (11) Urinary incontinence Priority: Secondary Status: Resolved Qualifiers: Urinary Incontinence type: unspecified incontinence Qualified Code(s): R32 - Unspecified urinary incontinence (12) Congestive heart failure Priority: Secondary Status: Chronic Qualifiers: Heart failure type: diastolic Heart failure chronicity: chronic Qualified Code(s): I50.32 - Chronic diastolic (congestive) heart failure (13) DVT prophylaxis Priority: Secondary Status: Acute (14) Urinary tract infection Priority: Secondary Status: Acute Assessment and Plan: Related to indwelling villagomez catheter Qualifiers: Urinary tract infection type: acute cystitis Hematuria presence: with hematuria Qualified Code(s): N30.01 - Acute cystitis with hematuria Hospital course: Ms. Kyle is a 56 year old female patient with history of asthma, A. fib, CHF , COPD, diabetes was hospitalized here with acute on chronic respiratory failure related to acute COPD exacerbation. She was started on treatment with intravenous steroids, Levaquin and bronchodilators along with increased supplemental oxygen. Her urine symptoms slowly improved. Her urine culture was positive for Acinetobacter sensitive to Levaquin. Her Villagomez catheter was removed. She is now doing much better. She is clinically stable to be discharged back to skilled rehabilitation at this time. She will continue to be on O2 supplementation at 6 L/m which is her baseline. She will complete a short course of prednisone and will also complete 14 day antibiotic therapy with Levaquin. Discharge discussed with: patient, nurse, case management - Time Spent with Patient Total time spent providing and/or coordinating discharge services: Greater than 30 minutes (40 min) - Discharge Medications Prescriptions: Lactobacillus Acidophilus [Acidophilus] 1 each PO BID #20 capsule levoFLOXacin [Levaquin] 750 mg PO DAILY #10 tablet predniSONE [PredniSONE] 10 mg PO DAILY 8 Days tablet Home Medications: Albuterol Sulfate [Proair Hfa] 2 puff IH Q4H PRN 09/08/15 [History] Aspirin 325 mg PO DAILY #60 tablet 09/19/15 [Rx] Ipratropium/Albuterol Neb [Duoneb] 3 ml IH [id number] PRN inh 12/08/16 [Rx] Fluticasone/Vilanterol [Breo Ellipta 100-25 Mcg INH] 1 puff IH DAILY 04/22/17 [ History] Albuterol Neb [Proventil Neb] 2.5 mg IH [id number] inhsol 04/26/17 [Rx] Nicotine Patch [Nicoderm] 14 mg TD Q24H patch.td24 04/26/17 [Rx] Oxygen 5 l NS AD 07/04/17 [History] Acetaminophen [Tylenol] 650 mg PO Q6HR PRN tablet 07/24/17 [Rx] Diltiazem CD (24hr) [Cardizem CD] 360 mg PO DAILY cap.er.24h 07/24/17 [Rx] Ferrous Sulfate 325 mg PO BIDWM tablet 07/24/17 [Rx] Metoprolol [Lopressor] 50 mg PO BID tablet 07/24/17 [Rx] Omeprazole [PriLOSEC] 20 mg PO DAILY@0730 capsule. 07/24/17 [Rx] Simvastatin [Zocor] 40 mg PO HS tablet 07/24/17 [Rx] Furosemide [Lasix] 60 mg PO BID 09/21/17 [History] Glucagon, Human Recombinant [Glucagen] 1 mg IV ONCE PRN 09/21/17 [History] Insulin Glargine [Lantus] 10 units SQ BID 09/21/17 [History] Insulin LISPRO [Humalog] 0 unit SQ TIDWM 09/21/17 [History] Nystatin POWDER [Nystop] 1 appl TP BID 09/21/17 [History] Ondansetron HCl 4 mg PO Q8H PRN 09/21/17 [History] Oxybutynin Chloride [Ditropan Xl] 5 mg PO DAILY 09/21/17 [History] Potassium Chloride [K-Tab ER] 20 meq PO BID 09/21/17 [History] Lactobacillus Acidophilus [Acidophilus] 1 each PO BID #20 capsule 09/25/17 [Rx] levoFLOXacin [Levaquin] 750 mg PO DAILY #10 tablet 09/25/17 [Rx] predniSONE [PredniSONE] 10 mg PO DAILY 8 Days tablet 09/25/17 [Rx] Allergies/Adverse Reactions: 3 Allergy/AdvReac Type Severity Reaction Status Date / Time Penicillins Allergy Rash Verified 09/21/17 10:03 Date of admission: 09/21/17 00:35 Primary care physician: Aleksey Huggisn DO Discharging clinician: Krystal Tavarez Anticipated date of discharge: 09/25/17 - Constitutional Vitals: Temp Pulse Resp BP Pulse Ox 98.1 F 78 18 102/69 96 09/25/17 10:53 09/25/17 10:53 09/25/17 11:06 09/25/17 10:53 09/25/17 11:06 General appearance: Present: A&O X 3, morbidly obese, pleasant, no acute distress, answers questions appropriately - Neck Neck exam general surgery: Present: supple, trachea midline. Absent: lymphadenopathy - Respiratory Respiratory exam: Present: prolonged expiratory phase, wheezes (Mild wheezing). Absent: accessory muscle use, rales, rhonchi - Cardiovascular Cardiovascular exam: Present: RRR, +S1, +S2. Absent: diastolic murmur, gallop, rubs, systolic murmur - GI/Abdominal GI/Abdominal exam: Present: normal bowel sounds, soft, no peritoneal signs. Absent: distended, tenderness - Extremities Exam Extremities exam: Present: warm, radial pulses palpable and symmetrical. Absent : calf tenderness, cyanotic, pedal edema - Patient Status Disposition: Transfer SNF Condition: Good Functional capacity at discharge: wheelchair bound Overall status at discharge: patient is progressing back to baseline - Discharge Instructions Instructions: Acute Respiratory Distress Syndrome (DC), Chronic Obstructive Pulmonary Disease (DC) Follow Up With: Aleksey Huggins DO [Primary Care Provider] - (1-2 weeks) - Diet and Activity Activity: increase activity as tolerated Diet: diabetic diet, low fat, low cholesterol, low salt diet
--- NOTE | 2017-09-25 12:55 | Physician Discharge Referral ---
ExtendedCare Referral Info Provider in Charge after Transfer: PCP Institutional Level of Care: Skilled - Diagnosis (1) Acute exacerbation of chronic obstructive airways disease Priority: Primary Status: Acute (2) Atrial fibrillation Priority: Secondary Status: Chronic (3) Morbid obesity Priority: Secondary Status: Chronic (4) TYE (obstructive sleep apnea) Priority: Secondary Status: Chronic (5) Hypokalemia Priority: Secondary Status: Resolved (6) Tobacco abuse Priority: Secondary Status: Chronic (7) Hypertension Priority: Secondary Status: Chronic (8) Diabetes mellitus Priority: Secondary Status: Chronic (9) Obesity hypoventilation syndrome Priority: Secondary Status: Chronic (10) HLD (hyperlipidemia) Priority: Secondary Status: Chronic (11) Urinary incontinence Priority: Secondary Status: Resolved (12) Congestive heart failure Priority: Secondary Status: Chronic (13) DVT prophylaxis Priority: Secondary Status: Acute (14) Urinary tract infection Priority: Secondary Status: Acute Prognosis: Fair Aware of Diagnosis: Patient Aware of Prognosis: Patient - Transfer Medications Prescriptions: Lactobacillus Acidophilus [Acidophilus] 1 each PO BID #20 capsule levoFLOXacin [Levaquin] 750 mg PO DAILY #10 tablet predniSONE [PredniSONE] 10 mg PO DAILY 8 Days tablet Home Medications: Albuterol Sulfate [Proair Hfa] 2 puff IH Q4H PRN 09/08/15 [History] Aspirin 325 mg PO DAILY #60 tablet 09/19/15 [Rx] Ipratropium/Albuterol Neb [Duoneb] 3 ml IH [id number] PRN inh 12/08/16 [Rx] Fluticasone/Vilanterol [Breo Ellipta 100-25 Mcg INH] 1 puff IH DAILY 04/22/17 [ History] Albuterol Neb [Proventil Neb] 2.5 mg IH [id number] inhsol 04/26/17 [Rx] Nicotine Patch [Nicoderm] 14 mg TD Q24H patch.td24 04/26/17 [Rx] Oxygen 5 l NS AD 07/04/17 [History] Acetaminophen [Tylenol] 650 mg PO Q6HR PRN tablet 07/24/17 [Rx] Diltiazem CD (24hr) [Cardizem CD] 360 mg PO DAILY cap.er.24h 07/24/17 [Rx] Ferrous Sulfate 325 mg PO BIDWM tablet 07/24/17 [Rx] Metoprolol [Lopressor] 50 mg PO BID tablet 07/24/17 [Rx] Omeprazole [PriLOSEC] 20 mg PO DAILY@0730 capsule. 07/24/17 [Rx] Simvastatin [Zocor] 40 mg PO HS tablet 07/24/17 [Rx] Furosemide [Lasix] 60 mg PO BID 09/21/17 [History] Glucagon, Human Recombinant [Glucagen] 1 mg IV ONCE PRN 09/21/17 [History] Insulin Glargine [Lantus] 10 units SQ BID 09/21/17 [History] Insulin LISPRO [Humalog] 0 unit SQ TIDWM 09/21/17 [History] Nystatin POWDER [Nystop] 1 appl TP BID 09/21/17 [History] Ondansetron HCl 4 mg PO Q8H PRN 09/21/17 [History] Oxybutynin Chloride [Ditropan Xl] 5 mg PO DAILY 09/21/17 [History] Potassium Chloride [K-Tab ER] 20 meq PO BID 09/21/17 [History] Lactobacillus Acidophilus [Acidophilus] 1 each PO BID #20 capsule 09/25/17 [Rx] levoFLOXacin [Levaquin] 750 mg PO DAILY #10 tablet 09/25/17 [Rx] predniSONE [PredniSONE] 10 mg PO DAILY 8 Days tablet 09/25/17 [Rx] Allergies/Adverse Reactions: 3 Allergy/AdvReac Type Severity Reaction Status Date / Time Penicillins Allergy Rash Verified 09/21/17 10:03 - Respiratory Orders Oxygen / L per min (6) Smoking Cessation: Smoking cessation has been advised. For more information, call the [place] Tobacco Quit Line at 2-609-OQCX-NOW. - Ancillary Orders May consult with Dentist, Card Assembler, Digital Ad Trafficker PRN - Advance Directives Code Status: Full Code - Mobility Orders Ambulate (per PT) - Rehabiliation Orders Rehab Potential: Fair Rehab Orders: Evaluation for Physical Therapy, Evaluation for Occupational Therapy - Diet Orders No Concentrated Sweets (diabetic), Cardiac CERTIFICATION: I certify that the transfer of the above named patient to an Extended Care Facility is necessary for the continuing treatment of the diagnosis listed. The above information is true and accurate reflection of patient's current condition. Confidential - Redisclosure prohibited without a patient's written consent.
[2017-09-25 16:45] VITALS: BP 116/69
== END 2017-09-25 18:05 ==
LOC: EMEROO 20:53 → 3ANU 20:53 → SUATTDRO 09-21 00:35 → 3ANU 09-21 01:12
PROVIDERS: ADMIT Internal Medicine; ATTEND Internal Medicine

== ENCOUNTER 2017-10-30 03:08 | Inpatient (IN) ==
[2017-10-30] MEDS ORDERED: Ipratropium/Albuterol Neb 3 ML IH ONE (03:11)
[2017-10-30] MEDS ORDERED: methylPREDNISolone 125 MG/2 ML VIAL IVP ONE (03:11)
[2017-10-30 03:40] LABS: Basophils % 0.2 %; Hematocrit 33.6 % (35.3-44.9); Immature Granulocytes % 1.2 % (0-4); Lymphocytes # 0.9 K/mcL (0.6-4.6); Lymphocytes % 5.3 %; Mean Corpuscular HGB Conc 29.8 g/dL (31.6-35.5); Mean Corpuscular Hemoglobin 28.4 pg (28.0-33.3); Mean Corpuscular Volume 95.5 fL (83.0-100.0); Mean Platelet Volume 9.9 fL (9.4-12.4); Monocytes # 0.6 K/mcL (0.0-1.3); Monocytes % 3.2 %; Platelet Count 494 K/mcL (140-400); Red Blood Count 3.52 M/mcL (3.82-4.97); Red Cell Distribution Width 18.7 % (11.5-14.5); Segmented Neutrophils % 90.1 %
[2017-10-30 04:01] LABS: BUN/Creatinine Ratio 17 (6-26); Blood Urea Nitrogen 18 mg/dL (6-20); Calcium 9.1 mg/dL (8.6-10.3); Carbon Dioxide 30 mEq/L (23-29); Chloride 103 mEq/L (98-107); Glucose 266 mg/dL (70-105); Osmolality,Calculated 305 (280-300); Potassium 4.2 mEq/L (3.5-5.1); Sodium 142 mEq/L (136-145); Troponin I < 0.03 ng/mL (< 0.04); eGFR For African Americans > 60 (> 60); eGFR For Non-African Americans 56 (> 60)
[2017-10-30] MEDS ORDERED: Furosemide 40 MG/4 ML VIAL IVP ONE (04:28)
[2017-10-30] MEDS ORDERED: Nitroglycerin 0.4 MG TAB.SUBL SL PRN (04:36)
--- NOTE | 2017-10-30 05:50 | Emergency Department Note ---
Disposition Clinical Impression: COPD exacerbation CHF exacerbation Qualifiers: Heart failure type: unspecified Qualified Code(s): I50.9 - Heart failure, unspecified Disposition: Admitted As Inpatient Condition: Fair Referrals: Aleksey Huggins DO [Primary Care Provider] - Forms: ED Satisfaction Letter Time of Disposition: 06:46 SOB HPI - General Chief Complaint: ED Shortness of Breath/Dyspnea Stated Complaint: SOB, AFIB Time Seen by Provider: 10/30/17 03:11 Source: patient, EMS Limitations: no limitations - History of Present Illness Patient is a 56-year-old female who presents to [facility] ED with a chief complaint of difficulty breathing. States her symptoms have been worsening over the last 5 days. She has a history of COPD as well as CHF. Denies any chest pain. No recent fevers or chills. She has had a cough but has not been productive. Denies any abdominal pain, problems with urination or bowel movements. No nausea or vomiting. Patient is on baseline 5 L home oxygen and uses BiPAP at night. Pt Subjective Complaint: shortness of breath Onset (ago): day(s) (5) Severity: moderate Consistency/Duration: gradually worsening Improves with: nothing Worsens with: exertion Known history of: COPD, congestive heart failure Associated symptoms: Reports: cough. Denies: chest pain, fever, wheezing, nausea/vomiting, abdominal pain Treatment prior to arrival: oxygen, bronchodilator Cough present: Yes Cough Description: Involuntary Cough Frequency: Intermittent Sputum production: No - Related Data Home oxygen amount: other (5L) Home Medications Medication Instructions Recorded Confirmed Albuterol Sulfate [Proair Hfa] 2 puff IH Q4H PRN 09/08/15 09/21/17 Fluticasone/Vilanterol [Breo 1 puff IH DAILY 04/22/17 09/21/17 Ellipta 100-25 Mcg INH] Oxygen 5 l NS AD 07/04/17 09/21/17 Furosemide [Lasix] 60 mg PO BID 09/21/17 09/21/17 Glucagon, Human Recombinant 1 mg IV ONCE PRN 09/21/17 09/21/17 [Glucagen] Insulin Glargine [Lantus] 10 units SQ BID 09/21/17 09/21/17 Insulin LISPRO [Humalog] 0 unit SQ TIDWM 09/21/17 09/21/17 Nystatin POWDER [Nystop] 1 appl TP BID 09/21/17 09/21/17 Ondansetron HCl 4 mg PO Q8H PRN 09/21/17 09/21/17 Oxybutynin Chloride [Ditropan Xl] 5 mg PO DAILY 09/21/17 09/21/17 Potassium Chloride [K-Tab ER] 20 meq PO BID 09/21/17 09/21/17 Previous Rx's Medication Instructions Recorded Aspirin 325 mg PO DAILY #60 tablet 09/19/15 Ipratropium/Albuterol Neb [Duoneb] 3 ml IH [id number] PRN inh 12/08/16 Albuterol Neb [Proventil Neb] 2.5 mg IH [id number] inhsol 04/26/17 Nicotine Patch [Nicoderm] 14 mg TD Q24H patch.td24 04/26/17 Acetaminophen [Tylenol] 650 mg PO Q6HR PRN tablet 07/24/17 Diltiazem CD (24hr) [Cardizem CD] 360 mg PO DAILY cap.er.24h 07/24/17 Ferrous Sulfate 325 mg PO BIDWM tablet 07/24/17 Metoprolol [Lopressor] 50 mg PO BID tablet 07/24/17 Omeprazole [PriLOSEC] 20 mg PO DAILY@0730 capsule. 07/24/17 Simvastatin [Zocor] 40 mg PO HS tablet 07/24/17 Lactobacillus Acidophilus 1 each PO BID #20 capsule 09/25/17 [Acidophilus] levoFLOXacin [Levaquin] 750 mg PO DAILY #10 tablet 09/25/17 predniSONE [PredniSONE] 10 mg PO DAILY 8 Days tablet 09/25/17 Allergies Allergy/AdvReac Type Severity Reaction Status Date / Time Penicillins Allergy Rash Verified 09/21/17 10:03 All systems ED: reviewed and negative except as stated. Past Medical History - Past Medical History Attestation: Yes The following information was validated with the patient. Source: patient Medical history: Reports: arthritis, asthma, atrial fibrillation, CHF, COPD, diabetes, GERD, hyperlipidemia, hypertension, osteoporosis, valvular heart disease Surgical history: Reports: other Psychiatric history: Reports: no psych history - Social History Smoking Status: Former smoker Smokeless Tobacco Status: No Alcohol use: Reports: rarely Drug use: Reports: none Physical Exam - General Limitations: no limitations General appearance: alert, in distress, obese - Head Head exam: atraumatic, normocephalic, normal inspection - Eye Eye exam: Present: normal appearance, EOMI - ENT ENT exam: normal exam, normal oropharynx, mucous membranes moist - Neck Neck exam: Present: normal inspection, full ROM, trachea midline - Chest Chest inspection: Present: normal inspection, symmetric chest wall rise - Respiratory Respiratory exam: Present: wheezes (Diffuse) - Cardiovascular Cardiovascular exam: Present: regular rate, irregular rhythm - Abdominal Exam Abdominal exam: Present: soft, Non-Tender. Absent: tenderness, distention, guarding, rebound, rigidity - Extremities Exam Extremities exam: Present: normal inspection, full ROM. Absent: tenderness, pedal edema - Back Exam Back exam: Present: normal inspection, full ROM. Absent: tenderness - Neurological Exam Neurological exam: Present: alert, oriented X3 - Psychiatric Psychiatric exam: Present: normal affect, normal mood - Skin Skin exam: Present: warm, dry, intact, normal color Course Course Narrative: Patient seen and examined. Shortness of breath worse over the last 5 days. Patient with diffuse wheezes. Triple DuoNeb therapy ordered as well as 125 mg Solu-Medrol. We will treat for COPD exacerbation. Cardiopulmonary workup initiated. - Reevaluation(s) Reevaluation #1: Patient's chest x-ray shows signs of congestive heart failure. Her BNP is elevated in the 900s. 40 mg of IV Lasix given. Will give patient a dose of nitroglycerin and start her on BiPAP therapy. Time: 05:52 Reevaluation #2: Patient looking much more comfortable on BiPAP. We will admit to hospitalist for COPD/CHF exacerbation. I discussed with the hospitalist Dr. Barbour who has accepted patient for admission. Time: 06:43 Vital Signs Temperature 98.6 F 10/30/17 03:11 Pulse Rate 79 10/30/17 03:11 Respiratory Rate 28 10/30/17 03:11 Blood Pressure 123/82 10/30/17 03:11 O2 Sat by Pulse Oximetry 93 10/30/17 03:11 Temperature 98.6 F 10/30/17 03:11 Pulse Rate 86 10/30/17 04:32 Respiratory Rate 18 10/30/17 06:25 Blood Pressure 126/71 10/30/17 06:25 O2 Sat by Pulse Oximetry 99 10/30/17 06:02 Oxygen Delivery Oxygen Delivery Bipap Shortness of Breath/Dyspnea - Medical Records Medical records reviewed: Yes I reviewed the patient's medical records. - Lab Data Lab results reviewed: Yes I reviewed the patient's lab results. Result diagrams: 10/30/17 03:25 10/30/17 03:25 Lab Results 10/30/17 10/30/17 10/30/17 Range/Units 03:25 03:25 03:25 WBC 17.8 H (4.3-11.1) K/mcL RBC 3.52 L (3.82-4.97) M/mcL Hgb 10.0 L (11.5-15.4) g/dL Hct 33.6 L (35.3-44.9) % MCV 95.5 (83.0-100.0) fL MCH 28.4 (28.0-33.3) pg MCHC 29.8 L (31.6-35.5) g/dL RDW 18.7 H (11.5-14.5) % Plt Count 494 H (140-400) K/mcL MPV 9.9 (9.4-12.4) fL Immature Gran % 1.2 (0-4) % Seg Neutrophils % 90.1 % Lymphocytes % 5.3 % Monocytes % 3.2 % Eosinophils % 0.0 % Basophils % 0.2 % Neutrophils # 16.0 H (1.6-8.9) K/mcL Lymphocytes # 0.9 (0.6-4.6) K/mcL Monocytes # 0.6 (0.0-1.3) K/mcL Eosinophils # 0.0 (0.0-0.6) K/mcL Basophils # 0.0 (0.0-0.2) K/mcL Sodium 142 (136-145) mEq/L Potassium 4.2 (3.5-5.1) mEq/L Chloride 103 (98-107) mEq/L Carbon Dioxide 30 H (23-29) mEq/L BUN 18 (6-20) mg/dL Creatinine 1.03 (0.60-1.20) mg/dL Est GFR ( Amer) > 60 (> 60) Est GFR (Non-Af Amer) 56 L (> 60) BUN/Creatinine Ratio 17 (6-26) Glucose 266 H (70-105) mg/dL Calculated Osmolality 305 H (280-300) Lactic Acid (0.5-2.2) mmol/L Calcium 9.1 (8.6-10.3) mg/dL Troponin I < 0.03 (< 0.04) ng/mL B-Natriuretic Peptide 929 H (Less than 100) pg/mL 10/30/17 Range/Units 03:39 WBC (4.3-11.1) K/mcL RBC (3.82-4.97) M/mcL Hgb (11.5-15.4) g/dL Hct (35.3-44.9) % MCV (83.0-100.0) fL MCH (28.0-33.3) pg MCHC (31.6-35.5) g/dL RDW (11.5-14.5) % Plt Count (140-400) K/mcL MPV (9.4-12.4) fL Immature Gran % (0-4) % Seg Neutrophils % % Lymphocytes % % Monocytes % % Eosinophils % % Basophils % % Neutrophils # (1.6-8.9) K/mcL Lymphocytes # (0.6-4.6) K/mcL Monocytes # (0.0-1.3) K/mcL Eosinophils # (0.0-0.6) K/mcL Basophils # (0.0-0.2) K/mcL Sodium (136-145) mEq/L Potassium (3.5-5.1) mEq/L Chloride (98-107) mEq/L Carbon Dioxide (23-29) mEq/L BUN (6-20) mg/dL Creatinine (0.60-1.20) mg/dL Est GFR ( Amer) (> 60) Est GFR (Non-Af Amer) (> 60) BUN/Creatinine Ratio (6-26) Glucose (70-105) mg/dL Calculated Osmolality (280-300) Lactic Acid 1.8 (0.5-2.2) mmol/L Calcium (8.6-10.3) mg/dL Troponin I (< 0.04) ng/mL B-Natriuretic Peptide (Less than 100) pg/mL - Radiology Data Radiology results reviewed: Yes I reviewed the patient's radiology results. Chest X-Ray 10/30/17 03:11 IMPRESSION: Cardiomegaly and bilateral interstitial opacities suggesting interstitial pulmonary edema secondary to congestive heart failure. D/ / Richard Jones / Richard Jones Interpreting Provider: Richard Jones - EKG Data EKG attestation: Yes I reviewed and interpreted this EKG. EKG results narrative: EKG done at 321 shows atrial fibrillation with a rate of [address] elevation or depression. Normal axis. Low voltage throughout.
--- NOTE | 2017-10-30 06:23 | Emergency Department Note ---
Disposition Clinical Impression: COPD exacerbation CHF exacerbation Qualifiers: Heart failure type: unspecified Qualified Code(s): I50.9 - Heart failure, unspecified Disposition: Admitted As Inpatient Condition: Fair General Adult HPI - General Chief complaint: ED Shortness of Breath/Dyspnea Stated complaint: SOB, AFIB Time Seen by Provider: 10/30/17 03:11 Source: patient, EMS Limitations: no limitations Nursing Notes Reviewed: Yes Vital Signs Reviewed: Yes - History of Present Illness Pain Scale: 0 - Related Data Home Medications Medication Instructions Recorded Confirmed Albuterol Sulfate [Proair Hfa] 2 puff IH Q4H PRN 09/08/15 09/21/17 Fluticasone/Vilanterol [Breo 1 puff IH DAILY 04/22/17 09/21/17 Ellipta 100-25 Mcg INH] Oxygen 5 l NS AD 07/04/17 09/21/17 Furosemide [Lasix] 60 mg PO BID 09/21/17 09/21/17 Glucagon, Human Recombinant 1 mg IV ONCE PRN 09/21/17 09/21/17 [Glucagen] Insulin Glargine [Lantus] 10 units SQ BID 09/21/17 09/21/17 Insulin LISPRO [Humalog] 0 unit SQ TIDWM 09/21/17 09/21/17 Nystatin POWDER [Nystop] 1 appl TP BID 09/21/17 09/21/17 Ondansetron HCl 4 mg PO Q8H PRN 09/21/17 09/21/17 Oxybutynin Chloride [Ditropan Xl] 5 mg PO DAILY 09/21/17 09/21/17 Potassium Chloride [K-Tab ER] 20 meq PO BID 09/21/17 09/21/17 Previous Rx's Medication Instructions Recorded Aspirin 325 mg PO DAILY #60 tablet 09/19/15 Ipratropium/Albuterol Neb [Duoneb] 3 ml IH [id number] PRN inh 12/08/16 Albuterol Neb [Proventil Neb] 2.5 mg IH [id number] inhsol 04/26/17 Nicotine Patch [Nicoderm] 14 mg TD Q24H patch.td24 04/26/17 Acetaminophen [Tylenol] 650 mg PO Q6HR PRN tablet 07/24/17 Diltiazem CD (24hr) [Cardizem CD] 360 mg PO DAILY cap.er.24h 07/24/17 Ferrous Sulfate 325 mg PO BIDWM tablet 07/24/17 Metoprolol [Lopressor] 50 mg PO BID tablet 07/24/17 Omeprazole [PriLOSEC] 20 mg PO DAILY@0730 capsule.dr 07/24/17 Simvastatin [Zocor] 40 mg PO HS tablet 07/24/17 Lactobacillus Acidophilus 1 each PO BID #20 capsule 09/25/17 [Acidophilus] levoFLOXacin [Levaquin] 750 mg PO DAILY #10 tablet 09/25/17 predniSONE [PredniSONE] 10 mg PO DAILY 8 Days tablet 09/25/17 Allergies Allergy/AdvReac Type Severity Reaction Status Date / Time Penicillins Allergy Rash Verified 09/21/17 10:03 Past Medical History - Past Medical History Medical history: Reports: arthritis, asthma, atrial fibrillation, CHF, COPD, diabetes, GERD, hyperlipidemia, hypertension, osteoporosis, valvular heart disease Surgical history: Reports: other Psychiatric history: Reports: no psych history - Social History Smoking Status: Former smoker Smokeless Tobacco Status: No Alcohol use: Reports: rarely Drug use: Reports: none Physical Exam - General Limitations: no limitations General appearance: alert, in distress, obese Course Vital Signs Temperature 98.6 F 10/30/17 03:11 Pulse Rate 79 10/30/17 03:11 Respiratory Rate 28 10/30/17 03:11 Blood Pressure 123/82 10/30/17 03:11 O2 Sat by Pulse Oximetry 93 10/30/17 03:11 Temperature 97.6 F 10/30/17 06:56 Pulse Rate 79 10/30/17 06:56 Respiratory Rate 26 10/30/17 06:56 Blood Pressure 121/76 10/30/17 06:56 O2 Sat by Pulse Oximetry 100 10/30/17 06:56 Oxygen Delivery Oxygen Delivery Bipap Medical Decision Making - Lab Data Result diagrams: 10/30/17 03:25 10/30/17 03:25 Lab Results 10/30/17 10/30/17 10/30/17 Range/Units 03:25 03:25 03:25 WBC 17.8 H (4.3-11.1) K/mcL RBC 3.52 L (3.82-4.97) M/mcL Hgb 10.0 L (11.5-15.4) g/dL Hct 33.6 L (35.3-44.9) % MCV 95.5 (83.0-100.0) fL MCH 28.4 (28.0-33.3) pg MCHC 29.8 L (31.6-35.5) g/dL RDW 18.7 H (11.5-14.5) % Plt Count 494 H (140-400) K/mcL MPV 9.9 (9.4-12.4) fL Immature Gran % 1.2 (0-4) % Seg Neutrophils % 90.1 % Lymphocytes % 5.3 % Monocytes % 3.2 % Eosinophils % 0.0 % Basophils % 0.2 % Neutrophils # 16.0 H (1.6-8.9) K/mcL Lymphocytes # 0.9 (0.6-4.6) K/mcL Monocytes # 0.6 (0.0-1.3) K/mcL Eosinophils # 0.0 (0.0-0.6) K/mcL Basophils # 0.0 (0.0-0.2) K/mcL Sodium 142 (136-145) mEq/L Potassium 4.2 (3.5-5.1) mEq/L Chloride 103 (98-107) mEq/L Carbon Dioxide 30 H (23-29) mEq/L BUN 18 (6-20) mg/dL Creatinine 1.03 (0.60-1.20) mg/dL Est GFR ( Amer) > 60 (> 60) Est GFR (Non-Af Amer) 56 L (> 60) BUN/Creatinine Ratio 17 (6-26) Glucose 266 H (70-105) mg/dL Calculated Osmolality 305 H (280-300) Lactic Acid (0.5-2.2) mmol/L Calcium 9.1 (8.6-10.3) mg/dL Troponin I < 0.03 (< 0.04) ng/mL B-Natriuretic Peptide 929 H (Less than 100) pg/mL 10/30/17 Range/Units 03:39 WBC (4.3-11.1) K/mcL RBC (3.82-4.97) M/mcL Hgb (11.5-15.4) g/dL Hct (35.3-44.9) % MCV (83.0-100.0) fL MCH (28.0-33.3) pg MCHC (31.6-35.5) g/dL RDW (11.5-14.5) % Plt Count (140-400) K/mcL MPV (9.4-12.4) fL Immature Gran % (0-4) % Seg Neutrophils % % Lymphocytes % % Monocytes % % Eosinophils % % Basophils % % Neutrophils # (1.6-8.9) K/mcL Lymphocytes # (0.6-4.6) K/mcL Monocytes # (0.0-1.3) K/mcL Eosinophils # (0.0-0.6) K/mcL Basophils # (0.0-0.2) K/mcL Sodium (136-145) mEq/L Potassium (3.5-5.1) mEq/L Chloride (98-107) mEq/L Carbon Dioxide (23-29) mEq/L BUN (6-20) mg/dL Creatinine (0.60-1.20) mg/dL Est GFR ( Amer) (> 60) Est GFR (Non-Af Amer) (> 60) BUN/Creatinine Ratio (6-26) Glucose (70-105) mg/dL Calculated Osmolality (280-300) Lactic Acid 1.8 (0.5-2.2) mmol/L Calcium (8.6-10.3) mg/dL Troponin I (< 0.04) ng/mL B-Natriuretic Peptide (Less than 100) pg/mL Critical Care Time Critical Care Time: Yes Total Critical Care Time: 35 Attestation: Critical care performed: Time is exclusive of separately billable procedures. Time includes: direct patient care, patient reassessment, coordination of patient care, interpretation of data (laboratory data, radiology data, and respiratory data), review of patient's medical records, medical consultation and documentation of patient care. Procedures included in critical care time: Procedures excluded from critical care time: Attestation Statement - Attestation Attestation: I, Nick Pablo MD, personally evaluated this patient and discussed their management with the resident physician. I reviewed the resident's note and agree with the documented findings, medical decision making, and plan of care. 56-year-old female presents [facility] the emergency department [facility] a local [facility] with a complaint of increased shortness of breath over the past several days getting progressively worse. Some cough but no fever. No sputum production. No chest pain. Patient has history of COPD and also CHF. She wears oxygen at 5 L/m. On examination patient is a well-developed morbidly obese female in no acute distress. She is alert and oriented 3. There is no cyanosis or diaphoresis. Breath sounds are decreased with scattered bilateral expiratory and inspiratory wheezes. Heart irregularly irregular with a normal rate. Abdomen soft and nontender with normal bowel sounds. Bilateral pitting edema. Labs reviewed. WBC 17.8. Troponin less than 0.03. BNP 929. EKG shows atrial fibrillation with ventricular rate is 77. Low voltage QRS. No significant change from prior EKG dated 09/20/2017. Chest x-ray shows: Cardiomegaly and bilateral interstitial opacities suggesting interstitial pulmonary edema secondary to congestive heart failure. Patient received IV Lasix. The hospitalist, Dr. Barbour, was consulted and accepted admission of the patient.
[2017-10-30] MEDS ORDERED: Levofloxacin 500 MG/100 ML 500 MG/100 ML BAG IVPB ONE (06:43)
--- NOTE | 2017-10-30 10:33 | Internal Med History&Physical ---
Date of Encounter: 10/30/17 Time of Encounter: 08:00 Internal Medicine - H&P: HPI Chief complaint: Shortness of breath Plans for Post Hospital Care: Home History of present illness: Patient is a 56-year-old female with past medical history significant for diastolic heart failure, atrial fibrillation, diabetes, O2 dependent (6 L) COPD and TYE who presents to the ER on 10/30/17 due to shortness of breath. Patient reports a 5 day history of shortness of breath with wheezing and a nonproductive cough. In addition, patient reports that she thinks that she has had some lower extremity edema and also thinks she might have had some weight gain. Patient decided to come to the ER for evaluation. In the ER, patient was found to have leukocytosis with white blood cell count of 17.8 in addition to elevated BNP of 929 and vascular congestion on chest x- ray. Patient received 1 dose of IV Solu-Medrol, furosemide and dual nebs in the ER. Patient will be admitted to medical surgical floor for acute on chronic diastolic heart failure and COPD exacerbation. Past Med Surg Social Fam HX - Past Medical History Medical history: arthritis, asthma, atrial fibrillation, CHF, COPD, diabetes, GERD, hyperlipidemia, hypertension, osteoporosis, valvular heart disease Additional medical history: Smoker Psychiatric history: no psych history - Past Surgical History Surgical History: other Additional surgical history: Tubal ligation - Social History Smoking Status: Former smoker Smokeless Tobacco Status: No Alcohol use: rarely Drug use: none - Family History Mother Living Status: Hx Family Cardiac Disorders: Yes Hx Family Endocrine Disorder: Yes (DM) Father Living Status: Hx Family Respiratory Disorders: Yes (Asthma, COPD, Emphysema) Internal Medicine - H&P: Meds Albuterol Sulfate [Proair Hfa] 2 puff IH Q4H PRN 09/08/15 [History] Aspirin 325 mg PO DAILY #60 tablet 09/19/15 [Rx] Fluticasone/Vilanterol [Breo Ellipta 100-25 Mcg INH] 1 puff IH DAILY 04/22/17 [ History] Nicotine Patch [Nicoderm] 14 mg TD Q24H patch.td24 04/26/17 [Rx] Oxygen 5 l NS AD 07/04/17 [History] Acetaminophen [Tylenol] 650 mg PO Q6HR PRN tablet 07/24/17 [Rx] Diltiazem CD (24hr) [Cardizem CD] 360 mg PO DAILY cap.er.24h 07/24/17 [Rx] Ferrous Sulfate 325 mg PO BIDWM tablet 07/24/17 [Rx] Metoprolol [Lopressor] 50 mg PO BID tablet 07/24/17 [Rx] Furosemide [Lasix] 60 mg PO BID 09/21/17 [History] Glucagon, Human Recombinant [Glucagen] 1 mg IV ONCE PRN 09/21/17 [History] Insulin LISPRO [Humalog] 0 unit SQ TIDWM 09/21/17 [History] Nystatin POWDER [Nystop] 1 appl TP BID 09/21/17 [History] Ondansetron HCl 4 mg PO Q8H PRN 09/21/17 [History] Oxybutynin Chloride [Ditropan Xl] 5 mg PO DAILY 09/21/17 [History] Potassium Chloride [K-Tab ER] 20 meq PO BID 09/21/17 [History] Lactobacillus Acidophilus [Acidophilus] 1 each PO BID #20 capsule 09/25/17 [Rx] Albuterol Neb [Proventil Neb] 2.5 mg IH Q4H 10/30/17 [History] Ipratropium/Albuterol Neb [Duoneb] 3 ml IH Q4H PRN 10/30/17 [History] Omeprazole [PriLOSEC] 20 mg PO DAILY 10/30/17 [History] Simvastatin [Zocor] 10 mg PO DAILY 10/30/17 [History] Spironolactone [Aldactone] 25 mg PO DAILY 10/30/17 [History] 3 Allergy/AdvReac Type Severity Reaction Status Date / Time Penicillins Allergy Rash Verified 10/30/17 10:24 All Systems PM: A 10-system review of systems was performed and is negative for pertinent findings except as documented above in the HPI. - Constitutional Vitals: Temp Pulse Resp BP Pulse Ox 97.6 F 79 26 121/76 100 10/30/17 06:56 10/30/17 06:56 10/30/17 06:56 10/30/17 06:56 10/30/17 08:13 General appearance: Present: A&O X 3, no acute distress - Eye Eye exam: Present: normal appearance - ENT ENT exam: Present: mucous membranes moist - Respiratory Respiratory exam: Present: wheezes. Absent: accessory muscle use, rales, rhonchi - Cardiovascular Cardiovascular exam: Present: RRR, +S1, +S2. Absent: diastolic murmur, gallop, rubs, systolic murmur - GI/Abdominal GI/Abdominal exam: Present: normal bowel sounds, soft, no peritoneal signs. Absent: distended, tenderness - Extremities Exam Extremities exam: Absent: pedal edema - Neurological Exam Neurological exam: Present: oriented X3 - Psychiatric Psychiatric exam: Present: normal mood - Skin Skin exam: Present: normal color Internal Med - H&P Results - Labs CBC & Chem 7: 10/30/17 03:25 18 03:25 - Assessment and plan (1) Acute on chronic diastolic CHF (congestive heart failure) Current Visit: No Status: Acute Assessment and plan: Patient with a 5 day history of shortness of breath with lower leg extremity edema In the ER, patient was found to have an elevated BNP of 929 and vascular congestion on chest x-ray. Will initiate IV diuresis with Lasix 80 mg twice daily with strict I's and O's and fluid restriction (2) COPD exacerbation Current Visit: Yes Status: Acute Assessment and plan: Patient still reports a 5 day history of wheezing with nonproductive cough In the ER, patient was found to have leukocytosis with white blood cell count of 17.8 and lung exam did reveal bilateral expiratory wheezes Will treat with IV Solu-Medrol, IV azithromycin and DuoNeb's (3) Atrial fibrillation Current Visit: No Status: Chronic Assessment and plan: Rate controlled; continue Cardizem and metoprolol Patient not on oral anticoagulation due to history of poor follow-up; her CHADS- Vasc score is 2 Qualifiers: Atrial fibrillation type: paroxysmal Qualified Code(s): I48.0 - Paroxysmal atrial fibrillation (4) Diabetes mellitus Current Visit: No Status: Chronic Assessment and plan: Coverage with sliding-scale insulin Qualifiers: Diabetes mellitus type: type 2 Diabetes mellitus supervisor intermediates insulin use: without jail use Diabetes mellitus complication status: with hyperglycemia Qualified Code(s): E11.65 - Type 2 diabetes mellitus with hyperglycemia (5) HLD (hyperlipidemia) Current Visit: No Status: Chronic Assessment and plan: Continue statin Qualifiers: Hyperlipidemia type: mixed hyperlipidemia Qualified Code(s): E78.2 - Mixed hyperlipidemia (6) Anemia Current Visit: No Status: Chronic Assessment and plan: Patient with chronic anemia secondary to iron deficiency Continue iron supplementation Qualifiers: Anemia type: unspecified type Qualified Code(s): D64.9 - Anemia, unspecified (7) TYE (obstructive sleep apnea) Current Visit: No Status: Chronic Assessment and plan: Patient to wear CPAP daily at bedtime (8) Obesity hypoventilation syndrome Current Visit: No Status: Chronic Assessment and plan: NIPPV daily at bedtime as above (9) Morbid obesity with BMI of 60.0-69.9, adult Current Visit: No Status: Chronic Assessment and plan: Lifestyle modifications (10) DVT prophylaxis Current Visit: No Status: Acute Assessment and plan: Subcutaneous heparin - Time Spent With Patient Total time spent is greater than 50% in coordination of care (as documented) at patient's floor/unit and/or counseling patient:
[2017-10-30] MEDS ORDERED: Naloxone 0.4 MG/ML INJ IVP PRN (11:04)
[2017-10-30] MEDS ORDERED: *HR* Dextrose 50 % in Water (Syg) 50 ML SYRINGE IVP PRN (11:12)
[2017-10-30] MEDS ORDERED: Dextrose Gel 15 GM/37.5 ML TUBE PO PRN ×2 (11:12)
[2017-10-30] MEDS ORDERED: D5% in Water 1,000 ML IVC PRN (11:12)
[2017-10-30] MEDS ORDERED: Acetaminophen 325 MG TABLET PO PRN (11:13)
[2017-10-30] MEDS ORDERED: NON-FORMULARY MEDICATION 1 EACH EACH (Oxygen [Oxygen] 5 L) NS SCH (11:15)
[2017-10-30] MEDS: Ipratropium/Albuterol Neb 3 ML IH SCH ×4 (11:37→23:50)
[2017-10-30] MEDS: Insulin LISPRO 300 UNITS/3 ML VIAL SQ SCH ×3 (12:16→21:22)
[2017-10-30] MEDS: Nicotine 14 MG PATCH.TD24 TD SCH (12:16)
[2017-10-30] MEDS: Azithromycin 500 MG in D5% in Water 250 ML IVPB SCH (12:16)
[2017-10-30] MEDS: MethylPREDNISolone 40 MG/ML VIAL IVP SCH (15:27)
[2017-10-30] MEDS ORDERED: Perflutren Lipid Microsphere 1.3 ML in 0.9 % Sodium Chloride 8.7 ML IVP ONE (15:27)
--- NOTE | 2017-10-30 16:21 | Electrocardiograph Report ---
[address] [place] [address] Test Date: 2017-10-30 Pat Name: Shanda Kyle Department: 104 Room: 2A31 Gender: F Assistant Department Manager: VERONIQUE : 1960 Requested By: Sylvia Kincaid Order Number: [id number] Reading MD: Ranjana Gifford Measurements Intervals [place] Rate: 77 P: VT: 0 QRS: 28 QRSD: 91 T: -1 QT: 381 QTc: 412 Interpretive Statements ATRIAL FIBRILLATION LOW QRS VOLTAGE POSSIBLE ANTERIOR MYOCARDIAL INFARCTION, OF INDETERMINATE AGE Electronically Signed On 10-30-2017 16:19:34 EDT by Ranjana Gifford
[2017-10-30] MEDS ORDERED: Furosemide 80 MG in 0.9 % Sodium Chloride 50 ML IVPB SCH (17:00)
[2017-10-30] MEDS: Furosemide 40 MG/4 ML VIAL IVP SCH (17:01)
[2017-10-30] MEDS: Lactobacillus 1 EACH CAP.SPRINK PO SCH (20:37)
[2017-10-31] MEDS: MethylPREDNISolone 40 MG/ML VIAL IVP SCH ×4 (00:02→23:58)
[2017-10-31] MEDS: Ipratropium/Albuterol Neb 3 ML IH SCH ×6 (03:35→23:03)
[2017-10-31 07:21] LABS: Basophils % 0.2 %; Hematocrit 32.5 % (35.3-44.9); Hemoglobin 9.6 g/dL (11.5-15.4); Immature Granulocytes % 3.3 % (0-4); Lymphocytes # 0.9 K/mcL (0.6-4.6); Lymphocytes % 7.1 %; Mean Corpuscular HGB Conc 29.5 g/dL (31.6-35.5); Mean Corpuscular Hemoglobin 28.1 pg (28.0-33.3); Mean Platelet Volume 9.8 fL (9.4-12.4); Monocytes # 0.5 K/mcL (0.0-1.3); Monocytes % 4.1 %; Nucleated Red Blood Cells 0.2 /100 WBC (0); Platelet Count 411 K/mcL (140-400); Red Blood Count 3.42 M/mcL (3.82-4.97); Red Cell Distribution Width 18.6 % (11.5-14.5); Segmented Neutrophils % 85.3 %
[2017-10-31] MEDS: Budesonide/Formoterol 160/4.5 MDI IH SCH ×2 (07:32→19:30)
[2017-10-31 07:44] LABS: BUN/Creatinine Ratio 33 (6-26); Blood Urea Nitrogen 26 mg/dL (6-20); Carbon Dioxide 31 mEq/L (23-29); Chloride 105 mEq/L (98-107); Glucose 198 mg/dL (70-105); Osmolality,Calculated 306 (280-300); Potassium 3.9 mEq/L (3.5-5.1); Sodium 143 mEq/L (136-145); eGFR For African Americans > 60 (> 60); eGFR For Non-African Americans > 60 (> 60)
[2017-10-31] MEDS: Furosemide 40 MG/4 ML VIAL IVP SCH ×2 (08:04→16:32)
[2017-10-31] MEDS: Lactobacillus 1 EACH CAP.SPRINK PO SCH ×2 (08:05→20:31)
[2017-10-31] MEDS: Diltiazem CD (24hr) 180 MG CAPSULE PO SCH (08:05)
[2017-10-31] MEDS: Aspirin 325 MG TABLET PO SCH (08:05)
[2017-10-31] MEDS: Insulin LISPRO 300 UNITS/3 ML VIAL SQ SCH ×4 (08:06→20:35)
[2017-10-31] MEDS: Spironolactone 25 MG TABLET PO SCH (08:06)
--- NOTE | 2017-10-31 10:34 | Internal Med Progress Note ---
Date of Encounter: 10/31/17 Time of Encounter: 10:33 - Assessment and plan (1) DVT prophylaxis Current Visit: Yes Status: Acute Assessment and plan: Subcutaneous heparin (2) Atrial fibrillation Current Visit: Yes Status: Chronic Assessment and plan: Rate controlled; continue Cardizem and metoprolol Patient not on oral anticoagulation due to history of poor follow-up; her CHADS- Vasc score is 2 Qualifiers: Atrial fibrillation type: paroxysmal Qualified Code(s): I48.0 - Paroxysmal atrial fibrillation (3) TYE (obstructive sleep apnea) Current Visit: Yes Status: Chronic Assessment and plan: Patient to wear CPAP daily at bedtime (4) Morbid obesity with BMI of 60.0-69.9, adult Current Visit: Yes Status: Chronic Assessment and plan: Lifestyle modifications (5) Anemia Current Visit: Yes Status: Chronic Assessment and plan: Patient with chronic anemia secondary to iron deficiency Continue iron supplementation Qualifiers: Anemia type: unspecified type Qualified Code(s): D64.9 - Anemia, unspecified (6) Acute on chronic diastolic CHF (congestive heart failure) Current Visit: Yes Status: Acute Assessment and plan: Patient with a 5 day history of shortness of breath with lower leg extremity edema In the ER, patient was found to have an elevated BNP of 929 and vascular congestion on chest x-ray. I/O -6.5L Continue lasix, fluid restriction, daily weight (7) Diabetes mellitus Current Visit: Yes Status: Chronic Assessment and plan: Coverage with sliding-scale insulin Qualifiers: Diabetes mellitus type: type 2 Diabetes mellitus care home insulin use: without care home use Diabetes mellitus complication status: with hyperglycemia Qualified Code(s): E11.65 - Type 2 diabetes mellitus with hyperglycemia (8) Obesity hypoventilation syndrome Current Visit: Yes Status: Chronic Assessment and plan: NIPPV daily at bedtime as above (9) HLD (hyperlipidemia) Current Visit: Yes Status: Chronic Assessment and plan: Continue statin Qualifiers: Hyperlipidemia type: mixed hyperlipidemia Qualified Code(s): E78.2 - Mixed hyperlipidemia (10) COPD exacerbation Current Visit: Yes Status: Acute Assessment and plan: NO wheezing at this tme Continue current management with duonebs, azithromycin, change solumedrol to prednisone a.m - Time Spent With Patient Total time spent is greater than 50% in coordination of care (as documented) at patient's floor/unit and/or counseling patient: - Subjective Interval history: 56-year-old female with past medical history significant for diastolic heart failure, atrial fibrillation, diabetes, O2 dependent (6 L) COPD and TYE who presents to the ER on 10/30/17 due to shortness of breath She is seen and evaluated at bedside She is still complaining of SOB at rest She is being managed for COPDE and CHFE I/O is negative 6.5 L She is O2 dependent and currently at baseline Leukocytosis seems to be chronic, although patient was on steroids for 2 days prior to admission and has also been on steroids, she is afebrile, no new cough , SOB is at baseline - Constitutional Vitals: Temp Pulse Resp BP Pulse Ox 98.4 F 86 19 154/86 94 10/31/17 07:19 10/31/17 07:19 10/31/17 07:34 10/31/17 07:19 10/31/17 08:23 General appearance: Present: A&O X 3, morbidly obese, no acute distress Exam: pink puffer - Head Head exam: Present: atraumatic, normocephalic - Eye Eye exam: Present: PERRL, conjuntiva pink, sclera anicteric Pupils: Present: PERRL - Neck Neck exam general surgery: Present: supple, trachea midline. Absent: lymphadenopathy - Respiratory Additional comments: diminished breath sounds bilaterally, few scattered crackles no wheezing pink puffer - Cardiovascular Cardiovascular exam: Present: RRR, +S1, +S2. Absent: diastolic murmur, gallop, rubs, systolic murmur - GI/Abdominal GI/Abdominal exam: Present: normal bowel sounds, soft, no peritoneal signs. Absent: distended, tenderness - Extremities Exam Extremities exam: Present: pedal edema - Neurological Exam Neurological exam: Present: alert, CN II-XII intact, oriented X3, no focal deficits. Absent: pronater drift, facial droop, speech deficit - Skin Skin exam: Present: dry, intact Internal Medicine: Result - Labs CBC & Chem 7: 10/31/17 06:50 10/31/17 06:50 Labs: Short CBC 10/31/17 Range/Units 06:50 WBC 12.9 H (4.3-11.1) K/mcL Hgb 9.6 L (11.5-15.4) g/dL Hct 32.5 L (35.3-44.9) % Plt Count 411 H (140-400) K/mcL Neutrophils # 11.0 H (1.6-8.9) K/mcL BMP 10/31/17 06:50 Sodium 143 Potassium 3.9 Chloride 105 Carbon Dioxide 31 H BUN 26 H Creatinine 0.80 Glucose 198 H Calcium 9.0 - Impressions Impressions Echocardiogram 10/30/17 11:12 Impressions: LVEF 55%. Mildly dilated left ventricle. Indeterminate diastolic function. Mildly dilated RV with normal function. Mild mitral regurgitation. Mild tricuspid regurgitation. Mild pulmonic regurgitation. Mild pulmonary hypertension. Left Ventricular Wall Motion: Rest Echo Findings All wall segments showed normal motion. Findings: Study Quality * Technically sub-optimal due to body habitus. ECG Findings * Atrial fibrillation. Left Ventricle * LVEF 55%. * Mildly dilated left ventricle. * Indeterminate diastolic function. Right Ventricle * Mildly dilated RV with normal function. Left Atrium * Mildly dilated left atrium. Right Atrium * Moderately dilated right atrium. Aortic Valve * No aortic regurgitation. * Aortic valve not well visualized. * No aortic stenosis. Mitral Valve * Normal mitral valve structure. * No mitral stenosis. * Mild mitral regurgitation. Tricuspid Valve * Tricuspid valve not well visualized. * Mild tricuspid regurgitation. * Estimated RA pressure is 20 mmHg. * Estimated RVSP is 47 mmHg. * Mild pulmonary hypertension. Pulmonic Valve * Pulmonic valve is not well visualized. * No pulmonic stenosis. * Mild pulmonic regurgitation. Pulmonary Artery * Pulmonary artery not well visualized. Aorta * Normally sized aortic root. Pericardium * There is no pericardial effusion present. Interatrial Septum * No evidence of PFO by color Doppler. IVC * The IVC is dilated. * < 50% respiratory change. Consult Discharge Plan - Plan Referrals: Aleksey Huggins DO [Primary Care Provider] -
[2017-10-31] MEDS: Nicotine 14 MG PATCH.TD24 TD SCH (11:40)
[2017-10-31] MEDS: Azithromycin 500 MG in D5% in Water 250 ML IVPB SCH (11:41)
[2017-10-31] MEDS ORDERED: Insulin DETEMIR 100 UNIT/ML X5UNITS SQ SCH (21:00)
[2017-11-01] MEDS: Ipratropium/Albuterol Neb 3 ML IH SCH ×6 (03:56→23:49)
[2017-11-01 05:07] LABS: Basophils % 0.2 %; Hematocrit 33.6 % (35.3-44.9); Hemoglobin 10.2 g/dL (11.5-15.4); Immature Granulocytes % 3.3 % (0-4); Lymphocytes # 0.8 K/mcL (0.6-4.6); Lymphocytes % 7.2 %; Mean Corpuscular HGB Conc 30.4 g/dL (31.6-35.5); Mean Corpuscular Hemoglobin 28.8 pg (28.0-33.3); Mean Corpuscular Volume 94.9 fL (83.0-100.0); Mean Platelet Volume 9.8 fL (9.4-12.4); Monocytes # 0.4 K/mcL (0.0-1.3); Monocytes % 3.4 %; Nucleated Red Blood Cells 0.3 /100 WBC (0); Platelet Count 396 K/mcL (140-400); Red Blood Count 3.54 M/mcL (3.82-4.97); Red Cell Distribution Width 17.9 % (11.5-14.5); Segmented Neutrophils % 85.9 %
[2017-11-01 05:26] LABS: BUN/Creatinine Ratio 49 (6-26); Blood Urea Nitrogen 31 mg/dL (6-20); Calcium 9.1 mg/dL (8.6-10.3); Carbon Dioxide 32 mEq/L (23-29); Chloride 101 mEq/L (98-107); Glucose 234 mg/dL (70-105); Osmolality,Calculated 306 (280-300); Sodium 141 mEq/L (136-145); eGFR For African Americans > 60 (> 60); eGFR For Non-African Americans > 60 (> 60)
[2017-11-01] MEDS: Budesonide/Formoterol 160/4.5 MDI IH SCH ×2 (07:24→19:56)
[2017-11-01] MEDS: Spironolactone 25 MG TABLET PO SCH (08:04)
[2017-11-01] MEDS: Insulin LISPRO 300 UNITS/3 ML VIAL SQ SCH ×4 (08:04→22:10)
[2017-11-01] MEDS: Aspirin 325 MG TABLET PO SCH (08:04)
[2017-11-01] MEDS: Diltiazem CD (24hr) 180 MG CAPSULE PO SCH (08:04)
[2017-11-01] MEDS: predniSONE 20 MG TABLET PO SCH (08:04)
[2017-11-01] MEDS: Lactobacillus 1 EACH CAP.SPRINK PO SCH ×2 (08:04→22:09)
[2017-11-01] MEDS: Furosemide 40 MG/4 ML VIAL IVP SCH ×2 (08:05→16:37)
[2017-11-01] MEDS: Insulin DETEMIR 100 UNIT/ML X5UNITS SQ SCH ×2 (11:23→22:10)
[2017-11-01] MEDS: Azithromycin 500 MG in D5% in Water 250 ML IVPB SCH (11:23)
[2017-11-01] MEDS: Nicotine 14 MG PATCH.TD24 TD SCH (11:23)
--- NOTE | 2017-11-01 11:36 | Internal Med Progress Note ---
Date of Encounter: 11/01/17 Time of Encounter: 09:35 - Assessment and plan (1) DVT prophylaxis Current Visit: Yes Status: Acute Assessment and plan: Subcutaneous heparin (2) Atrial fibrillation Current Visit: Yes Status: Chronic Assessment and plan: Rate controlled; continue Cardizem and metoprolol Patient not on oral anticoagulation due to history of poor follow-up; her CHADS- Vasc score is 2 Qualifiers: Atrial fibrillation type: paroxysmal Qualified Code(s): I48.0 - Paroxysmal atrial fibrillation (3) TYE (obstructive sleep apnea) Current Visit: Yes Status: Chronic Assessment and plan: Patient to wear CPAP daily at bedtime (4) Morbid obesity with BMI of 60.0-69.9, adult Current Visit: Yes Status: Chronic Assessment and plan: Lifestyle modifications (5) Anemia Current Visit: Yes Status: Chronic Assessment and plan: Patient with chronic anemia secondary to iron deficiency Continue iron supplementation Qualifiers: Anemia type: unspecified type Qualified Code(s): D64.9 - Anemia, unspecified (6) Acute on chronic diastolic CHF (congestive heart failure) Current Visit: Yes Status: Acute Assessment and plan: Patient with a 5 day history of shortness of breath with lower leg extremity edema In the ER, patient was found to have an elevated BNP of 929 and vascular congestion on chest x-ray. I/O -11.5 Continue lasix, fluid restriction, daily weight change lasix to home po dose tmrw a.m (7) Diabetes mellitus Current Visit: Yes Status: Chronic Assessment and plan: Coverage with sliding-scale insulin and levemir BID Qualifiers: Diabetes mellitus type: type 2 Diabetes mellitus wort extractor insulin use: without wort extractor use Diabetes mellitus complication status: with hyperglycemia Qualified Code(s): E11.65 - Type 2 diabetes mellitus with hyperglycemia (8) Obesity hypoventilation syndrome Current Visit: Yes Status: Chronic Assessment and plan: NIPPV daily at bedtime as above (9) HLD (hyperlipidemia) Current Visit: Yes Status: Chronic Assessment and plan: Continue statin Qualifiers: Hyperlipidemia type: mixed hyperlipidemia Qualified Code(s): E78.2 - Mixed hyperlipidemia (10) COPD exacerbation Current Visit: Yes Status: Acute Assessment and plan: NO wheezing at this tme Continue current management with duonebs, azithromycin, continue prednisone - Time Spent With Patient Total time spent is greater than 50% in coordination of care (as documented) at patient's floor/unit and/or counseling patient: - Subjective Interval history: 56-year-old female with past medical history significant for diastolic heart failure, atrial fibrillation, diabetes, O2 dependent (6 L) COPD and TYE who presents to the ER on 10/30/17 due to shortness of breath She is seen and evaluated at bedside She has no new complains this a.m She is being managed for COPDE and CHFE I/O is negative 11.5L She is O2 dependent and currently at baseline Leukocytosis seems to be chronic, although patient was on steroids for 2 days prior to admission and has also been on steroids, she is afebrile, no new cough , SOB is at baseline, and leukocytosis is improving Plan is to remove Leigh catheter Awaiting precert for SNF placement - Constitutional Vitals: Temp Pulse Resp BP Pulse Ox 97.9 F 75 20 124/71 99 11/01/17 11:13 11/01/17 11:13 11/01/17 11:13 11/01/17 11:13 11/01/17 11:13 General appearance: Present: A&O X 3, morbidly obese, no acute distress - Head Head exam: Present: atraumatic, normocephalic - Eye Eye exam: Present: PERRL, conjuntiva pink, sclera anicteric Pupils: Present: PERRL - Neck Neck exam general surgery: Present: supple, trachea midline. Absent: lymphadenopathy - Respiratory Respiratory exam: Present: CTAB. Absent: accessory muscle use, rales, rhonchi, wheezes - Cardiovascular Cardiovascular exam: Present: RRR, +S1, +S2. Absent: diastolic murmur, gallop, rubs, systolic murmur - GI/Abdominal GI/Abdominal exam: Present: normal bowel sounds, soft, no peritoneal signs. Absent: distended, tenderness - Extremities Exam Extremities exam: Present: pedal edema, warm, radial pulses palpable and symmetrical. Absent: calf tenderness, cyanotic - Neurological Exam Neurological exam: Present: alert, CN II-XII intact, oriented X3, no focal deficits. Absent: pronater drift, facial droop, speech deficit - Skin Skin exam: Present: dry, intact Internal Medicine: Result - Labs CBC & Chem 7: 11/01/17 04:41 11/01/17 04:41 Labs: Short CBC 11/01/17 Range/Units 04:41 WBC 11.6 H (4.3-11.1) K/mcL Hgb 10.2 L (11.5-15.4) g/dL Hct 33.6 L (35.3-44.9) % Plt Count 396 (140-400) K/mcL Neutrophils # 10.0 H (1.6-8.9) K/mcL BMP 11/01/17 04:41 Sodium 141 Potassium 4.0 Chloride 101 Carbon Dioxide 32 H BUN 31 H Creatinine 0.63 Glucose 234 H Calcium 9.1 Consult Discharge Plan - Plan Referrals: Aleksey Huggins DO [Primary Care Provider] -
[2017-11-01] MEDS: *HR* Heparin 5,000 UNIT/ML VIAL SQ SCH (22:10)
[2017-11-02] MEDS: Ipratropium/Albuterol Neb 3 ML IH SCH ×3 (03:51→11:09)
[2017-11-02] MEDS: *HR* Heparin 5,000 UNIT/ML VIAL SQ SCH (05:43)
[2017-11-02 07:10] VITALS: BP 126/87
[2017-11-02] MEDS: Budesonide/Formoterol 160/4.5 MDI IH SCH (07:40)
[2017-11-02] MEDS: Insulin LISPRO 300 UNITS/3 ML VIAL SQ SCH ×2 (08:07→11:49)
[2017-11-02] MEDS: Diltiazem CD (24hr) 180 MG CAPSULE PO SCH (08:11)
[2017-11-02] MEDS: predniSONE 20 MG TABLET PO SCH (08:12)
[2017-11-02] MEDS: Spironolactone 25 MG TABLET PO SCH (08:12)
[2017-11-02] MEDS: Lactobacillus 1 EACH CAP.SPRINK PO SCH (08:12)
[2017-11-02] MEDS: Aspirin 325 MG TABLET PO SCH (08:12)
[2017-11-02] MEDS: Insulin DETEMIR 100 UNIT/ML X5UNITS SQ SCH (08:15)
[2017-11-02] MEDS ORDERED: Furosemide 20 MG TABLET PO SCH (09:00)
[2017-11-02] MEDS: Furosemide 40 MG/4 ML VIAL IVP SCH (09:47)
--- NOTE | 2017-11-02 11:24 | Discharge Summary ---
- NOTES TO OUTPATIENT PROVIDER Notes to Outpatient Provider: Patient admitted and managed for acute on chronic diaastolic CHF, and COPDE. Holliday been adequately diuressed, she is discharged on prednisone and azithromycin, she needs 2 more days of azithromycin and prednsione . Other chronic medical conditions are stable Date of Encounter: 11/02/17 Time of Encounter: 11:10 - Discharge Diagnosis (1) DVT prophylaxis Priority: Primary Status: Acute (2) Atrial fibrillation Priority: Secondary Status: Chronic Qualifiers: Atrial fibrillation type: paroxysmal Qualified Code(s): I48.0 - Paroxysmal atrial fibrillation (3) TYE (obstructive sleep apnea) Priority: Secondary Status: Chronic (4) Morbid obesity with BMI of 60.0-69.9, adult Priority: Secondary Status: Chronic (5) Anemia Priority: Secondary Status: Chronic Qualifiers: Anemia type: unspecified type Qualified Code(s): D64.9 - Anemia, unspecified (6) Acute on chronic diastolic CHF (congestive heart failure) Priority: Primary Status: Acute (7) Diabetes mellitus Priority: Secondary Status: Chronic Qualifiers: Diabetes mellitus type: type 2 Diabetes mellitus superintendent [employer] insulin use: without superintendent [employer] use Diabetes mellitus complication status: with hyperglycemia Qualified Code(s): E11.65 - Type 2 diabetes mellitus with hyperglycemia (8) Obesity hypoventilation syndrome Priority: Secondary Status: Chronic (9) HLD (hyperlipidemia) Priority: Secondary Status: Chronic Qualifiers: Hyperlipidemia type: mixed hyperlipidemia Qualified Code(s): E78.2 - Mixed hyperlipidemia (10) COPD exacerbation Priority: Primary Status: Acute Hospital course: Ms. Kyle is a 56 year old female with PMH of TYE/OHS, CRF on home O2, MOrbid Obsiety with BMI 61, Afib, Anemia of chronic disease, DM, HLD, HTN She was in her usual state of health [facility] of [facility], cough, worsening leg edema, and weight gain. Work up was significant for leukocytosis with white blood cell count of 17.8 in addition to elevated BNP of 929 and vascular congestion on chest x-ray. Patient received 1 dose of IV Solu-Medrol, furosemide and dual nebs in the ER. She was admitted inpatient for management of acute on chronic resp failure secondary to CHFE and COPDE. She continued to be managed with high dose diuretics, steroids, duonebs, azithromycin She has made adequate diuresis with negative 12.6 L and near resolution of pedal edema. She is seen and examined this morning, in no form of distress, back to baseline , chest is CTAB, labs are satisfactory She is discharged back to [facility] in stable clinical condition Complete 2 more days of azithromycin and prednisone at [facility]. Other chronic medical conditions remained stable, home meds resumed Discharge discussed with: patient, nurse, social work, case management - Time Spent with Patient Total time spent providing and/or coordinating discharge services: Greater than 30 minutes - Discharge Medications Home Medications: Albuterol Sulfate [Proair Hfa] 2 puff IH Q4H PRN 09/08/15 [History] Aspirin 325 mg PO DAILY #60 tablet 09/19/15 [Rx] Fluticasone/Vilanterol [Breo Ellipta 100-25 Mcg INH] 1 puff IH DAILY 04/22/17 [ History] Nicotine Patch [Nicoderm] 14 mg TD Q24H patch.td24 04/26/17 [Rx] Oxygen 5 l NS AD 07/04/17 [History] Acetaminophen [Tylenol] 650 mg PO Q6HR PRN tablet 07/24/17 [Rx] Diltiazem CD (24hr) [Cardizem CD] 360 mg PO DAILY cap.er.24h 07/24/17 [Rx] Ferrous Sulfate 325 mg PO BIDWM tablet 07/24/17 [Rx] Metoprolol [Lopressor] 50 mg PO BID tablet 07/24/17 [Rx] Furosemide [Lasix] 60 mg PO BID 09/21/17 [History] Glucagon, Human Recombinant [Glucagen] 1 mg IV ONCE PRN 09/21/17 [History] Insulin LISPRO [Humalog] 0 - 10 unit SQ TIDWM 09/21/17 [History] Nystatin POWDER [Nystop] 1 appl TP BID 09/21/17 [History] Ondansetron HCl 4 mg PO Q8H PRN 09/21/17 [History] Oxybutynin Chloride [Ditropan Xl] 5 mg PO DAILY 09/21/17 [History] Potassium Chloride [K-Tab ER] 20 meq PO BID 09/21/17 [History] Lactobacillus Acidophilus [Acidophilus] 1 each PO BID #20 capsule 09/25/17 [Rx] Albuterol Neb [Proventil Neb] 2.5 mg IH Q4H 10/30/17 [History] Ipratropium/Albuterol Neb [Duoneb] 3 ml IH Q4H PRN 10/30/17 [History] Omeprazole [PriLOSEC] 20 mg PO DAILY 10/30/17 [History] Simvastatin [Zocor] 10 mg PO DAILY 10/30/17 [History] Spironolactone [Aldactone] 25 mg PO DAILY 10/30/17 [History] Insulin Glargine [Lantus] 10 unit SQ BID 11/01/17 [History] Azithromycin [Zithromax] 500 mg PO Q24H tablet 11/02/17 [Rx] predniSONE [PredniSONE] 40 mg PO DAILY tablet 11/02/17 [Rx] Allergies/Adverse Reactions: 3 Allergy/AdvReac Type Severity Reaction Status Date / Time Penicillins Allergy Rash Verified 10/30/17 10:24 Date of admission: 10/31/17 12:43 Primary care physician: Aleksey Huggins DO Discharging clinician: Beau Weir Anticipated date of discharge: 11/02/17 - Constitutional Vitals: Temp Pulse Resp BP Pulse Ox 98.1 F 70 16 126/87 99 11/02/17 07:08 11/02/17 07:08 11/02/17 07:40 11/02/17 07:08 11/02/17 07:40 General appearance: Present: A&O X 3, morbidly obese, no acute distress - Head Head exam: Present: atraumatic, normocephalic - Eye Eye exam: Present: PERRL, conjuntiva pink, sclera anicteric Pupils: Present: PERRL - Neck Neck exam general surgery: Present: supple, trachea midline. Absent: lymphadenopathy - Respiratory Respiratory exam: Present: CTAB. Absent: accessory muscle use, rales, rhonchi, wheezes - Cardiovascular Cardiovascular exam: Present: RRR, +S1, +S2. Absent: diastolic murmur, gallop, rubs, systolic murmur - GI/Abdominal GI/Abdominal exam: Present: normal bowel sounds, soft, no peritoneal signs. Absent: distended, tenderness - Extremities Exam Extremities exam: Present: pedal edema (1+ , improved from admission), warm, radial pulses palpable and symmetrical. Absent: calf tenderness, cyanotic - Neurological Exam Neurological exam: Present: alert, CN II-XII intact, oriented X3, no focal deficits. Absent: pronater drift, facial droop, speech deficit - Skin Skin exam: Present: dry, intact - Patient Status Disposition: Transfer SNF Condition: Good Functional capacity at discharge: uses cane/walker - Discharge Instructions Instructions: Heart Failure (DC), Chronic Obstructive Pulmonary Disease (DC) Follow Up With: Aleksey Huggins DO [Primary Care Provider] - ([facility]) Forms: ED Satisfaction Letter - Diet and Activity Activity: resume usual activities as tolerated, wear oxygen at all times Diet: low fat, low cholesterol, low salt diet
[2017-11-02] MEDS: Nicotine 14 MG PATCH.TD24 TD SCH (11:48)
[2017-11-02] MEDS: Azithromycin 500 MG in D5% in Water 250 ML IVPB SCH (11:49)
--- NOTE | 2017-11-02 12:57 | Physician Discharge Referral ---
ExtendedCare Referral Info Transfer To: SNF Provider in Charge: Carey Weir Provider in Charge after Transfer: PCP Institutional Level of Care: Skilled - Diagnosis (1) DVT prophylaxis Priority: Primary Status: Acute (2) Atrial fibrillation Priority: Secondary Status: Chronic (3) TYE (obstructive sleep apnea) Priority: Secondary Status: Chronic (4) Morbid obesity with BMI of 60.0-69.9, adult Priority: Secondary Status: Chronic (5) Anemia Priority: Secondary Status: Chronic (6) Acute on chronic diastolic CHF (congestive heart failure) Priority: Primary Status: Resolved (7) Diabetes mellitus Priority: Secondary Status: Chronic (8) Obesity hypoventilation syndrome Priority: Secondary Status: Chronic (9) HLD (hyperlipidemia) Priority: Secondary Status: Chronic (10) COPD exacerbation Priority: Primary Status: Acute Prognosis: Fair Aware of Diagnosis: Patient Aware of Prognosis: Patient - Transfer Medications Home Medications: Albuterol Sulfate [Proair Hfa] 2 puff IH Q4H PRN 09/08/15 [History] Aspirin 325 mg PO DAILY #60 tablet 09/19/15 [Rx] Fluticasone/Vilanterol [Breo Ellipta 100-25 Mcg INH] 1 puff IH DAILY 04/22/17 [ History] Nicotine Patch [Nicoderm] 14 mg TD Q24H patch.td24 04/26/17 [Rx] Oxygen 5 l NS AD 07/04/17 [History] Acetaminophen [Tylenol] 650 mg PO Q6HR PRN tablet 07/24/17 [Rx] Diltiazem CD (24hr) [Cardizem CD] 360 mg PO DAILY cap.er.24h 07/24/17 [Rx] Ferrous Sulfate 325 mg PO BIDWM tablet 07/24/17 [Rx] Metoprolol [Lopressor] 50 mg PO BID tablet 07/24/17 [Rx] Furosemide [Lasix] 60 mg PO BID 09/21/17 [History] Glucagon, Human Recombinant [Glucagen] 1 mg IV ONCE PRN 09/21/17 [History] Insulin LISPRO [Humalog] 0 - 10 unit SQ TIDWM 09/21/17 [History] Nystatin POWDER [Nystop] 1 appl TP BID 09/21/17 [History] Ondansetron HCl 4 mg PO Q8H PRN 09/21/17 [History] Oxybutynin Chloride [Ditropan Xl] 5 mg PO DAILY 09/21/17 [History] Potassium Chloride [K-Tab ER] 20 meq PO BID 09/21/17 [History] Lactobacillus Acidophilus [Acidophilus] 1 each PO BID #20 capsule 09/25/17 [Rx] Albuterol Neb [Proventil Neb] 2.5 mg IH Q4H 10/30/17 [History] Ipratropium/Albuterol Neb [Duoneb] 3 ml IH Q4H PRN 10/30/17 [History] Omeprazole [PriLOSEC] 20 mg PO DAILY 10/30/17 [History] Simvastatin [Zocor] 10 mg PO DAILY 10/30/17 [History] Spironolactone [Aldactone] 25 mg PO DAILY 10/30/17 [History] Insulin Glargine [Lantus] 10 unit SQ BID 11/01/17 [History] Azithromycin [Zithromax] 500 mg PO Q24H tablet 11/02/17 [Rx] predniSONE [PredniSONE] 40 mg PO DAILY tablet 11/02/17 [Rx] Allergies/Adverse Reactions: 3 Allergy/AdvReac Type Severity Reaction Status Date / Time Penicillins Allergy Rash Verified 10/30/17 10:24 - Respiratory Orders Oxygen / L per min Smoking Cessation: Smoking cessation has been advised. For more information, call the [place] Tobacco Quit Line at 5-695-NJAFNOW. - Advance Directives Code Status: Full Code - Diet Orders No Concentrated Sweets, Cardiac CERTIFICATION: I certify that the transfer of the above named patient to an Extended Care Facility is necessary for the continuing treatment of the diagnosis listed. The above information is true and accurate reflection of patient's current condition. Confidential - Redisclosure prohibited without a patient's written consent.
[2017-11-03] MEDS ORDERED: Azithromycin 250 MG TABLET PO SCH (12:00)
== END 2017-11-02 15:17 | DRG 194 ==
LOC: 2ANU 03:08 → EMEROO 03:08 → SUATTDRO 06:17 → 2ANU 06:35
PROVIDERS: ADMIT Internal Medicine; ATTEND Internal Medicine

== ENCOUNTER 2018-08-22 11:33 | Inpatient (IN) ==
[2018-08-22] MEDS ORDERED: Artificial Tears SOLN 15 ML BOTTLE BOTH EYES PRN (14:20)
[2018-08-22] MEDS ORDERED: Naloxone 0.4 MG/ML INJ IVP PRN (14:41)
[2018-08-22] MEDS ORDERED: 0.9 % Sodium Chloride 1,000 ML IVC SCH (14:45)
[2018-08-22] MEDS ORDERED: D5% in Water 1,000 ML IVC PRN (14:49)
[2018-08-22] MEDS ORDERED: Dextrose Gel 15 GM/37.5 ML TUBE PO PRN ×2 (14:49)
[2018-08-22] MEDS ORDERED: *HR* Dextrose 50 % in Water (Syg) 50 ML SYRINGE IVP PRN (14:49)
--- NOTE | 2018-08-22 14:53 | Pulmonology History & Physical ---
<Nathan Quiñones - Last Filed: 08/22/18 15:17> Date of Encounter: 08/22/18 Time of Encounter: 14:53 Assessment and Plan (1) Acute on chronic respiratory failure with hypoxia and hypercapnia Current visit: Yes Status: Acute Patient presented via EMS to [facility] for shortness of breath She was found to be in acute hypoxic respiratory failure and was quickly intubated Blood gas demonstrated hypercapnia and respiratory acidosis with likely component of metabolic acidosis as well Patient has history of COPD, heart failure, repeated hospitalizations for pneumonia and respiratory failure Patient also demonstrated tachycardia, hypotension, fever correlating with suspicion for sepsis Most likely source is pneumonia, chest x-ray was suspicious for infiltrate Lactic acid was less than 2 Most likely diagnosis is acute respiratory failure secondary to pneumonia or COPD exacerbation with underlying heart failure This is complicated by suspected sepsis secondary to pneumonia Patient was given 1 dose of vancomycin, Levaquin, aztreonam at [facility] Patient was also given 5 L cumulatively from [facility] and transport She was also started on levophed at [facility] for pressure support Maintain mechanical ventilation and propofol for sedation Repeat ABG and titrate vent settings accordingly Transition to cefepime IV 2 g every 8 hours Continue levophed for pressure support Will not continue maintenance fluids at this time to avoid fluid overload (2) Sepsis Current visit: No Status: Suspected Suspected sepsis secondary to suspected pneumonia Blood cultures drawn at [facility], pending Currently treating with IV cefepime 2 g every 8 hours Not currently getting maintenance fluids, patient had 5 L prior to arrival and has history of heart failure Qualifiers: Sepsis type: sepsis due to unspecified organism Qualified Code(s): A41.9 - Sepsis, unspecified organism (3) COPD (chronic obstructive pulmonary disease) Current visit: Yes Status: Acute Patient has history of COPD with multiple occurrences of hospitalizations for exacerbation Patient is likely an exacerbation now Mechanically ventilated IV Solu-Medrol 40 mg every 8 hours Scheduled DuoNeb's Qualifiers: COPD type: unspecified COPD Qualified Code(s): J44.9 - Chronic obstructive pulmonary disease, unspecified (4) Chronic a-fib Current visit: No Status: Chronic Patient has history of chronic atrial fibrillation on home Cardizem Patient is currently minimally tachycardic and hypotensive We will hold rate control for now and resume when blood pressure can tolerate or if patient does not RVR Patient is not on anticoagulation at home (5) Pneumonia Current visit: Yes Status: Suspected Pneumonia suspected Currently on cefepime We will repeat chest x-ray in a.m. Qualifiers: Pneumonia type: due to unspecified organism Laterality: unspecified laterality Lung location: unspecified part of lung Qualified Code(s): J18.9 - Pneumonia, unspecified organism (6) Congestive heart failure Current visit: Yes Status: Chronic History of heart failure Most recent echocardiogram in October 2017 demonstrated indeterminate diastolic function and EF 55% We will continue to monitor fluid status, consider repeat echo Qualifiers: Heart failure type: unspecified Heart failure chronicity: chronic Qualified Code(s): I50.9 - Heart failure, unspecified (7) Diabetes mellitus Current visit: No Status: Chronic Every 6 hours Accu-Chek and low-dose sliding scale insulin Qualifiers: Diabetes mellitus type: type 2 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 Apparently EMS was called to the patient's house for shortness of breath. She presented to [facility] reporting history of recent cough and hospitalization a month ago for similar issue. She was immediately intubated on arrival and right femoral central line was placed. Patient was assumed to be septic due to tachycardia, hypotension, fever. She was started on fluids, vancomycin, Levaquin, aztreonam. ABG demonstrated respiratory acidosis, metabolic acidosis. Chest x-ray was suspicious for infiltrate. Labs showed elevated white count. [facility] called [facility] ICU to discuss transfer. [facility] was asked to stabilize the patient with vent settings to titrate pH closer to normal. PH was able to be elevated to 7.1 prior to discharge but ED physician felt transfer was more advantageous than further treatment of pH. She was given a amp of bicarbonate and started on Levophed before transfer. On arrival patient is sedated and ventilating appropriately on mechanical ventilation. Review of systems and Family history not obtainable secondary to endotracheal intubation and altered mental status. Past Med Surg Social Fam HX - Past Medical History Medical history: arthritis, asthma, atrial fibrillation, CHF, COPD, diabetes, GERD, hyperlipidemia, hypertension, osteoporosis, valvular heart disease Additional medical history: Smoker Psychiatric history: no psych history - Past Surgical History Surgical History: other Additional surgical history: Tubal ligation - Social History Smoking Status: Former smoker Smokeless Tobacco Status: No Alcohol use: rarely Drug use: none - Family History Father Living Status: Hx Family Respiratory Disorders: Yes (Asthma, COPD, Emphysema) Mother Living Status: Hx Family Cardiac Disorders: Yes Hx Family Endocrine Disorder: Yes (DM) Medications and Allergies RX: Albuterol Sulfate [Proair Hfa] 2 puff IH Q4H PRN 09/08/15 [History] RX: Aspirin 325 mg PO DAILY #60 tablet 09/19/15 [Rx] RX: Oxygen 2 - 5 l NS AD 07/04/17 [History] RX: Acetaminophen [Tylenol] 650 mg PO Q6HR PRN tablet 07/24/17 [Rx] RX: Diltiazem CD (24hr) [Cardizem CD] 360 mg PO DAILY cap.er.24h 07/24/17 [Rx] RX: Metoprolol [Lopressor] 50 mg PO BID tablet 07/24/17 [Rx] RX: Ipratropium/Albuterol Neb [Duoneb] 3 ml IH Q4H PRN 10/30/17 [History] RX: Simvastatin [Zocor] 10 mg PO DAILY 10/30/17 [History] RX: Ferrous Sulfate 324 mg PO BID 07/14/18 [History] RX: Furosemide [Lasix] 80 mg PO BID 07/14/18 [History] RX: Potassium Chloride [Klor-Con 10] 20 meq PO BID 07/14/18 [History] RX: Sennosides [Senna] 8.6 mg PO BID 07/14/18 [History] RX: Tramadol HCl [Ultram] 50 mg PO BID PRN 07/14/18 [History] levoFLOXacin [Levofloxacin] 500 mg PO DAILY 08/22/18 [History] predniSONE [PredniSONE] 10 mg PO AD 08/22/18 [History] Allergy/AdvReac Type Severity Reaction Status Date / Time Penicillins Allergy Rash Verified 07/14/18 11:38 ROS unobtainable: due to endotracheal tube, due to mental status All Systems: The remainder of the systems were reviewed and are negative Physical Examination General appearance: no acute distress, asleep Eyes: nonicteric ENT: oropharynx moist Neck: supple Effort: other (Mechanical ventilation, patient not tachypneic or breathing over vent) Inspection: normal Auscultation: bilateral: wheezes, rhonchi Cardiovascular: irregular rhythm, other (Tachycardic rate and irregular rhythm, likely atrial fibrillation, low 100s) <Walter Interiano M - Last Filed: 08/23/18 23:56> Date of Encounter: 08/22/18 History of Present Illness HPI: Ms. Mccormick is a 57 year old female All Systems: The remainder of the systems were reviewed and are negative Physical Examination Vital Signs: Vital Signs, Last 4 Hours Temp Pulse Resp BP Pulse Ox 08/22/18 16:00 98 14 84/57 93 08/22/18 15:52 99 08/22/18 15:15 18 92/64 95 08/22/18 15:00 98.7 F 100 18 92/61 95 08/22/18 14:15 98.7 F 104 18 92/64 95 08/22/18 14:00 99 18 77/60 94 Results - Laboratory Findings CBC and BMP: 08/23/18 03:30 08/23/18 03:30 ABG ABG pH 7.24 pH Units (7.32-7.45) L D 08/22/18 15:28 ABG pCO2 70 mmHg (35-45) H* D 08/22/18 15:28 ABG pO2 87 mmHg (85-104) D 08/22/18 15:28 ABG O2 Saturation 94 % (95-98) L 08/22/18 15:28 Abnormal lab findings: Abnormal lab results ABG pH 7.24 pH Units (7.32-7.45) L D 08/22/18 15:28 ABG pCO2 70 mmHg (35-45) H* D 08/22/18 15:28 ABG HCO3 30 mEq/L (21-27) H 08/22/18 15:28 ABG Total CO2 32 mEq/L (20-26) H 08/22/18 15:28 ABG O2 Saturation 94 % (95-98) L 08/22/18 15:28 - Attending Attestation I examined this patient and my medical decision-making was reviewed with the Resident Physician. I agree with the documented findings, disposition and treatment plan as described except to the extent set forth below. Patient seen and examined. Labs, radiology, chart personally reviewed. I was called by [facility] physician regarding this patient and she was intubated with severe respiratory acidosis and she is known to our service with her advance lung disease. I have advised physician to give attempt to correct PH before transportation and givej bicarbonate prior to transfer. Agree with resident's history and physical, assessment, plan with following comments: BEEF TAGGER: Patient is follows commands, patient is on sedation for the vent synchrony and will add fentanyl to propofol Pulmonary: Acceptable oxygenation and ventilation. Patient has very advanced underlying lung disease with extremely elevated PCO2. She still having acute on chronic respiratory acidosis and I have changed vent setting improve her ventilation and oxygenation. I am hoping this will be easy and not difficult extubation due to her comorbidities. Patient was treated as COPD exacerbation and she might even end up with tracheostomy. Cardiovascular: relatively low BP, but MAP is acceptable, could be related to sedation GI: Nutrition per dietary and GI prophylaxis per routine Heme: DVT prophylaxis per routine ID: Continue antibiotics and plan to de-escalation Renal; urine out put and renal funtion reviewed Endorcine: blood glucose is monitored Lines: all lines checked and no evidence of infections Skin: skin care to prevent pressure ulcers per nursing routine care Prognosis is very poor for this patient I spent 45 min of Critical Care time with this patient. It involved decision making of high complexity to assess, manipulate, and support vital organ system failure and/or to prevent further life threatening deterioration of the patien t's condition. The time involved in the performance of separately reportable procedures was not counted toward critical care time.
[2018-08-22] MEDS: Ipratropium/Albuterol Neb 3 ML IH SCH ×3 (15:15→23:20)
[2018-08-22 15:32] LABS: ABG Base Excess 0 mEq/L (-2 to 3); ABG HCO3 30 mEq/L (21-27); ABG Oxygen Saturation 94 % (95-98); ABG PCO2 70 mmHg (35-45); ABG PH 7.24 pH Units (7.32-7.45); ABG PO2 87 mmHg (85-104); ABG TCO2 32 mEq/L (20-26); Blood Gas Modality ASSIST CONTROL; Blood Gas PEEP 5 cm H2O; Blood Gas Respiration Rate 18; Blood Gas VT 550 cc
[2018-08-22] MEDS: Artificial Tears SOLN 15 ML BOTTLE BOTH EYES SCH ×2 (16:15→19:48)
[2018-08-22] MEDS: Cefepime HCl 2,000 MG in 0.9 % Sodium Chloride Mini Bag 100 ML IVPB SCH (16:15)
[2018-08-22] MEDS: Norepinephrine 4 MG in D5% in Water 250 ML IVC SCH ×2 (16:16→21:51)
[2018-08-22] MEDS: Pantoprazole 40 MG VIAL IVP SCH (16:16)
[2018-08-22] MEDS: FentaNYL (PF) 1,000 MCG in 0.9 % Sodium Chloride 80 ML IVC SCH (17:06)
[2018-08-22 17:19] LABS: Adenovirus DETECTED (Not Detect); Bordetella Pertussis Not Detected (Not Detect); Chlamydophila pneumoniae Not Detected (Not Detect); Coronavirus 229E Not Detected (Not Detect); Coronavirus HKU1 Not Detected (Not Detect); Coronavirus NL63 Not Detected (Not Detect); Coronavirus OC43 Not Detected (Not Detect); Human Metapneumovirus Not Detected (Not Detect); Human Rhinovirus/Enterovirus Not Detected (Not Detect); Influenza A Subtype 2009 H1 Not Detected (Not Detect); Influenza A Untypeable Not Detected (Not Detect); Influenza B Not Detected (Not Detect); Mycoplasma pneumoniae Not Detected (Not Detect); Parainfluenza Virus 1 Not Detected (Not Detect); Parainfluenza Virus 2 Not Detected (Not Detect); Parainfluenza Virus 3 Not Detected (Not Detect); Parainfluenza Virus 4 Not Detected (Not Detect); Respiratory Syncytial Virus Not Detected (Not Detect)
[2018-08-22] MEDS: Insulin LISPRO 300 UNITS/3 ML VIAL SQ SCH (17:47)
[2018-08-22] MEDS: *HR* Heparin 5,000 UNIT/ML VIAL SQ SCH (17:47)
[2018-08-22] MEDS: Clotrimazole 1% CRM 15 GM TUBE TP SCH (19:49)
[2018-08-22] MEDS: Chlorhexidine Rinse 15 ML MOUTHWASH MM SCH (19:50)
[2018-08-23] MEDS: Insulin LISPRO 300 UNITS/3 ML VIAL SQ SCH ×4 (00:14→18:00)
[2018-08-23] MEDS: Cefepime HCl 2,000 MG in 0.9 % Sodium Chloride Mini Bag 100 ML IVPB SCH ×3 (00:18→16:13)
[2018-08-23] MEDS: Artificial Tears SOLN 15 ML BOTTLE BOTH EYES SCH ×6 (00:21→20:42)
[2018-08-23] MEDS ORDERED: *HR* Metoprolol 5 MG/5 ML VIAL IVP ONE (01:06)
[2018-08-23] MEDS: Norepinephrine 4 MG in D5% in Water 250 ML IVC SCH ×5 (02:29→16:13)
[2018-08-23] MEDS: FentaNYL (PF) 1,000 MCG in 0.9 % Sodium Chloride 80 ML IVC SCH ×2 (03:21→16:10)
[2018-08-23] MEDS: Levalbuterol Neb 0.63 MG/3 ML IH SCH ×4 (03:43→22:25)
[2018-08-23 03:44] LABS: Hematocrit 42.6 % (35.3-44.9); Hemoglobin 12.7 g/dL (11.5-15.4); Mean Corpuscular HGB Conc 29.8 g/dL (31.6-35.5); Mean Corpuscular Hemoglobin 31.8 pg (28.0-33.3); Mean Platelet Volume 10.2 fL (9.4-12.4); Platelet Count 242 K/mcL (140-400); Red Cell Distribution Width 16.9 % (11.5-14.5)
[2018-08-23 03:45] LABS: Mean Corpuscular Volume 106.5 fL (83.0-100.0)
[2018-08-23 04:01] LABS: BUN/Creatinine Ratio 25 (6-26); Blood Urea Nitrogen 19 mg/dL (6-20); Calcium 8.2 mg/dL (8.6-10.3); Carbon Dioxide 28 mEq/L (23-29); Chloride 109 mEq/L (98-107); Glucose 107 mg/dL (70-105); Osmolality,Calculated 301 (280-300); Potassium 4.4 mEq/L (3.5-5.1); Sodium 144 mEq/L (136-145); eGFR For Non-African Americans > 60 (> 60)
[2018-08-23 04:41] LABS: ABG Base Excess -1 mEq/L (-2 to 3); ABG HCO3 28 mEq/L (21-27); ABG Oxygen Saturation 94 % (95-98); ABG PCO2 65 mmHg (35-45); ABG PH 7.25 pH Units (7.32-7.45); ABG PO2 84 mmHg (85-104); ABG TCO2 30 mEq/L (20-26); Blood Gas Modality ASSIST CONTROL; Blood Gas PEEP 8 cm H2O; Blood Gas Respiration Rate 14; Blood Gas VT 600 cc
[2018-08-23] MEDS: *HR* Heparin 5,000 UNIT/ML VIAL SQ SCH ×2 (06:21→18:03)
[2018-08-23] MEDS: Chlorhexidine Rinse 15 ML MOUTHWASH MM SCH ×2 (07:40→20:43)
[2018-08-23] MEDS: Pantoprazole 40 MG VIAL IVP SCH (07:40)
[2018-08-23] MEDS: Clotrimazole 1% CRM 15 GM TUBE TP SCH ×2 (07:43→20:43)
--- NOTE | 2018-08-23 08:15 | Pulmonology Progress Note ---
<Annetta Díaz - Last Filed: 08/23/18 13:16> Date of Encounter: 08/23/18 Time of Encounter: 07:05 Assessment and Plan (1) Acute on chronic respiratory failure with hypoxia and hypercapnia Current Visit: Yes Status: Acute - Acute on chronic respiratory failure with hypoxia and hypercapnia with suspected etiology of pneumonia, likely exacerbating his chronic obstructive pulmonary disease--CHF is an additional complicating factor - ABG this morning not significantly changed from yesterday - Repeat CXR: Worsening multi-lobar airspace opacities of right lung, small bilateral pleural effusions - Continue mechanical ventilation, re-evaluate respiratory status in the morning - Continue Solu-Medrol 40 mg IV Q8H - Continue cefepime 2 g IVPB Q8H, day 2 - Start vancomycin 2 g IVPB Q12H - Xopenex Q6H (2) Sepsis Current Visit: Yes Status: Suspected SIRS criteria met: Temp 101.4, HR > 90, RR > 20, WBC > 12 Etiology: Most likely d/t PNA Causative organism: suspect MRSA WBC 15.7 Lactic acid 1 - Repeat CXR: Worsening multi-lobar airspace opacities of right lung, small bilateral pleural effusions (+) MRSA nasal swab Adenovirus detected by PCR - Continue cefepime 2 g IVPB Q8H, day 2 - Start vancomycin 2 g IVPB Q12H Plan - Continue current antibiotics, course depends on clinical picture and will de- escalate when able Qualifiers: Sepsis type: sepsis due to unspecified organism Qualified Code(s): A41.9 - Sepsis, unspecified organism (3) Pneumonia Current Visit: Yes Status: Suspected Imaging and plan as above Qualifiers: Pneumonia type: due to methicillin-resistant Staphylococcus aureus (MRSA) Laterality: unspecified laterality Lung location: unspecified part of lung Qualified Code(s): J15.212 - Pneumonia due to Methicillin resistant Staphylococcus aureus (4) COPD (chronic obstructive pulmonary disease) Current Visit: Yes Status: Acute As above Qualifiers: COPD type: chronic bronchitis Chronic bronchitis type: mixed simple and mucopurulent Qualified Code(s): J41.8 - Mixed simple and mucopurulent chronic bronchitis (5) Chronic a-fib Current Visit: Yes Status: Chronic - Diltiazem drip started this morning for rate control - Propofol drip for sedation changed to Precedex d/t hypotension Subjective Interval history: Patient seen and examined this morning at bedside. She is sedated and on mechanical ventilation. Overnight, became quite tachycardic with HR reportedly reaching into 150'sto 160's. HR showed modest response to 2.5 mg IV lopressor. Lactic acid was checked overnight as well and returned within normal limits. Objective PUL Vital signs: Last Vital Signs Temp 100.4 F H 08/23/18 04:36 Pulse 119 08/23/18 06:00 Resp 14 08/23/18 07:14 BP 78/62 08/23/18 06:47 Pulse Ox 94 08/23/18 07:14 General appearance: no acute distress ENT: oropharynx dry Effort: normal Auscultation: left: wheezes Cardiovascular: other (tachycardia, irregular rhythm) Gastrointestinal: absent bowel sounds, soft, non-distended Extremities: no edema, no clubbing, pulses normal, cyanosis (toes bilaterally) unable to assess due to mental status Ventilator Settings Ventilator Settings: Ventilator Settings, Last 8 Hours Ventilator Tidal Volume 600 Setting Ventilator Tidal Volume 600 Setting Ventilator Tidal Volume 600 Setting Ventilator Tidal Volume 600 Setting Ventilator Tidal Volume 600 Setting Ventilator Tidal Volume 600 Setting Ventilator Tidal Volume 600 Setting Ventilator Tidal Volume 600 Setting Ventilator Tidal Volume 600 Setting Ventilator Tidal Volume 600 Setting Ventilator Respiratory Rate 14 Setting Ventilator Respiratory Rate 14 Setting Ventilator Respiratory Rate 14 Setting Ventilator Respiratory Rate 14 Setting Ventilator Respiratory Rate 14 Setting Ventilator Respiratory Rate 14 Setting Ventilator Respiratory Rate 14 Setting Ventilator Respiratory Rate 14 Setting Ventilator Respiratory Rate 14 Setting Ventilator Respiratory Rate 14 Setting Actual Respiratory Rate 14 Actual Respiratory Rate 14 Actual Respiratory Rate 14 Actual Respiratory Rate 14 Actual Respiratory Rate 14 Actual Respiratory Rate 14 Actual Respiratory Rate 14 Actual Respiratory Rate 15 Actual Respiratory Rate 14 Positive End Expiratory 8 Pressure Positive End Expiratory 8 Pressure Positive End Expiratory 8 Pressure Positive End Expiratory 8 Pressure Positive End Expiratory 8 Pressure Positive End Expiratory 8 Pressure Positive End Expiratory 8 Pressure Positive End Expiratory 8 Pressure Positive End Expiratory 8 Pressure Positive End Expiratory 8 Pressure Peak Inspiratory Airway 40 Pressure Peak Inspiratory Airway 42 Pressure Peak Inspiratory Airway 39 Pressure Peak Inspiratory Airway 48 Pressure Peak Inspiratory Airway 48 Pressure Peak Inspiratory Airway 48 Pressure Peak Inspiratory Airway 43 Pressure Peak Inspiratory Airway 45 Pressure Peak Inspiratory Airway 39 Pressure Results - Laboratory Findings CBC and BMP: 08/23/18 03:30 08/23/18 03:30 ABG ABG pH 7.25 pH Units (7.32-7.45) L 08/23/18 04:37 ABG pCO2 65 mmHg (35-45) H 08/23/18 04:37 ABG pO2 84 mmHg (85-104) L 08/23/18 04:37 ABG O2 Saturation 94 % (95-98) L 08/23/18 04:37 Abnormal lab findings: Abnormal lab results WBC 15.7 K/mcL (4.3-11.1) H 08/23/18 03:30 MCV 106.5 fL (83.0-100.0) H 08/23/18 03:30 MCHC 29.8 g/dL (31.6-35.5) L 08/23/18 03:30 RDW 16.9 % (11.5-14.5) H 08/23/18 03:30 ABG pH 7.25 pH Units (7.32-7.45) L 08/23/18 04:37 ABG pCO2 65 mmHg (35-45) H 08/23/18 04:37 ABG pO2 84 mmHg (85-104) L 08/23/18 04:37 ABG HCO3 28 mEq/L (21-27) H 08/23/18 04:37 ABG Total CO2 30 mEq/L (20-26) H 08/23/18 04:37 ABG O2 Saturation 94 % (95-98) L 08/23/18 04:37 Chloride 109 mEq/L (98-107) H 08/23/18 03:30 Glucose 107 mg/dL (70-105) H 08/23/18 03:30 POC Glucose 110 mg/dL (70-99) H 08/23/18 05:49 Calculated Osmolality 301 (280-300) H 08/23/18 03:30 Calcium 8.2 mg/dL (8.6-10.3) L 08/23/18 03:30 Nasal Screen MRSA (PCR) Positive (Negative) A 08/22/18 15:20 Adenovirus (PCR) DETECTED (Not Detect) A 08/22/18 15:20 - Clinical Findings Intake & Output: Intake & Output 08/22/18 08/23/18 08/23/18 23:59 07:59 15:59 Intake Total 754 / 754 908.0 / 908.0 Output Total 1025 / 1025 380 / 380 Balance -271 / -271 528.0 / 528.0 Weight 175.6 kg Consult Discharge Plan - Plan Referrals: NONE,PCP [Primary Care Provider] - <Walter Interiano M - Last Filed: 08/24/18 00:43> Date of Encounter: 08/23/18 Objective PUL Vital signs: Last Vital Signs Temp 99.4 F 08/23/18 08:00 Pulse 128 08/23/18 09:00 Resp 14 08/23/18 09:44 BP 76/52 08/23/18 09:00 Pulse Ox 93 08/23/18 09:44 Ventilator Settings Ventilator Settings: Ventilator Settings, Last 8 Hours Ventilator Tidal Volume 620 Setting Ventilator Tidal Volume 600 Setting Ventilator Tidal Volume 600 Setting Ventilator Tidal Volume 600 Setting Ventilator Tidal Volume 600 Setting Ventilator Tidal Volume 600 Setting Ventilator Tidal Volume 600 Setting Ventilator Tidal Volume 600 Setting Ventilator Tidal Volume 600 Setting Ventilator Tidal Volume 600 Setting Ventilator Tidal Volume 600 Setting Ventilator Tidal Volume 600 Setting Ventilator Respiratory Rate 14 Setting Ventilator Respiratory Rate 14 Setting Ventilator Respiratory Rate 14 Setting Ventilator Respiratory Rate 14 Setting Ventilator Respiratory Rate 14 Setting Ventilator Respiratory Rate 14 Setting Ventilator Respiratory Rate 14 Setting Ventilator Respiratory Rate 14 Setting Ventilator Respiratory Rate 14 Setting Ventilator Respiratory Rate 14 Setting Ventilator Respiratory Rate 14 Setting Ventilator Respiratory Rate 14 Setting Actual Respiratory Rate 14 Actual Respiratory Rate 14 Actual Respiratory Rate 14 Actual Respiratory Rate 14 Actual Respiratory Rate 14 Actual Respiratory Rate 14 Actual Respiratory Rate 14 Actual Respiratory Rate 14 Actual Respiratory Rate 14 Actual Respiratory Rate 14 Actual Respiratory Rate 14 Positive End Expiratory 8 Pressure Positive End Expiratory 8 Pressure Positive End Expiratory 8 Pressure Positive End Expiratory 8 Pressure Positive End Expiratory 8 Pressure Positive End Expiratory 8 Pressure Positive End Expiratory 8 Pressure Positive End Expiratory 8 Pressure Positive End Expiratory 8 Pressure Positive End Expiratory 8 Pressure Positive End Expiratory 8 Pressure Positive End Expiratory 8 Pressure Peak Inspiratory Airway 46 Pressure Peak Inspiratory Airway 40 Pressure Peak Inspiratory Airway 40 Pressure Peak Inspiratory Airway 40 Pressure Peak Inspiratory Airway 40 Pressure Peak Inspiratory Airway 42 Pressure Peak Inspiratory Airway 39 Pressure Peak Inspiratory Airway 48 Pressure Peak Inspiratory Airway 48 Pressure Peak Inspiratory Airway 48 Pressure Peak Inspiratory Airway 43 Pressure Results - Laboratory Findings CBC and BMP: 08/23/18 03:30 08/23/18 03:30 ABG ABG pH 7.25 pH Units (7.32-7.45) L 08/23/18 04:37 ABG pCO2 65 mmHg (35-45) H 08/23/18 04:37 ABG pO2 84 mmHg (85-104) L 08/23/18 04:37 ABG O2 Saturation 94 % (95-98) L 08/23/18 04:37 Abnormal lab findings: Abnormal lab results WBC 15.7 K/mcL (4.3-11.1) H 08/23/18 03:30 MCV 106.5 fL (83.0-100.0) H 08/23/18 03:30 MCHC 29.8 g/dL (31.6-35.5) L 08/23/18 03:30 RDW 16.9 % (11.5-14.5) H 08/23/18 03:30 ABG pH 7.25 pH Units (7.32-7.45) L 08/23/18 04:37 ABG pCO2 65 mmHg (35-45) H 08/23/18 04:37 ABG pO2 84 mmHg (85-104) L 08/23/18 04:37 ABG HCO3 28 mEq/L (21-27) H 08/23/18 04:37 ABG Total CO2 30 mEq/L (20-26) H 08/23/18 04:37 ABG O2 Saturation 94 % (95-98) L 08/23/18 04:37 Chloride 109 mEq/L (98-107) H 08/23/18 03:30 Glucose 107 mg/dL (70-105) H 08/23/18 03:30 POC Glucose 110 mg/dL (70-99) H 08/23/18 05:49 Calculated Osmolality 301 (280-300) H 08/23/18 03:30 Calcium 8.2 mg/dL (8.6-10.3) L 08/23/18 03:30 Nasal Screen MRSA (PCR) Positive (Negative) A 08/22/18 15:20 Adenovirus (PCR) DETECTED (Not Detect) A 08/22/18 15:20 - Clinical Findings Intake & Output: Intake & Output 08/22/18 08/23/18 08/23/18 23:59 07:59 15:59 Intake Total 754 / 754 908.0 / 908.0 100 / 100 Output Total 1025 / 1025 730 / 730 Balance -271 / -271 178.0 / 178.0 100 / 100 Weight 175.6 kg - Attending Attestation I examined this patient and my medical decision-making was reviewed with the Resident Physician. I agree with the documented findings, disposition and treatment plan as described except to the extent set forth below. Patient seen and examined. Labs, radiology, chart personally reviewed. Agree with resident's history and physical, assessment, plan with following comments: CONTENT SPECIALIST: Patient does not follows commands, Patient remain sedated and need vent synchrony Pulmonary: Acceptable oxygenation and still issues with ventilation and have changed vent setting to help that and help with lowering PEEPi. I suspect with her underlying lung disease, it will be difficult to completely help her PEEPi. Lowering her PEEP and hopefully she would be able to tolerate SBT soon. There is a possibility it might be a difficult extubation due to her morbid obesity and advance lung disease. Cardiovascular: Patient was started on cardizam drip for her tachycardia, which I suspect it is related to her underlying advance lung disease and even bronchodilators. May need more cardiac evaluation GI: Nutrition per dietary and GI prophylaxis per routine Heme: DVT prophylaxis per routine ID: Continue antibiotics and plan to de-escalation Renal; urine out put and renal funtion reviewed Endorcine: blood glucose is monitored Lines: all lines checked and no evidence of infections Skin: skin care to prevent pressure ulcers per nursing routine care Prognosis is poor I spent 40 min of Critical Care time with this patient. It involved decision making of high complexity to assess, manipulate, and support vital organ system failure and/or to prevent further life threatening deterioration of the patient's condition. The time involved in the performance of separately reportable procedures was not counted toward critical care time.
[2018-08-23] MEDS ORDERED: Levalbuterol 1 PUFF INHALER IH SCH (10:00)
[2018-08-23] MEDS: Dexmedetomidine HCl 400 MCG/100 ML MLS IVC SCH ×5 (10:14→22:16)
--- NOTE | 2018-08-23 11:09 | Palliative - Consult Note ---
Date of Encounter: 08/23/18 Time of Encounter: 10:30 - Assessment and Plan (1) Goals of care, counseling/discussion Current Visit: Yes Status: Acute Assessment and plan: Called patient michael and KORINA Downey. Patient currently lives with Shayan. Daughter Ling is aware of patients admission per Shayan. Shayan reports that patient is enrolled in home hospice care with [facility]. States that prior to admit that they visited the home to assess the patient for dyspnea. I updated Shayan on patients condition and need for intubation and mechanical ventilation and vasopressor support. Shayan became emotional and states that patient desires to have all medical interventions necessary to maintain body functions and life. Confirmed desires to remain FULL CODE and receive CPR, Defibrillation, ACLS medications and vasopressors. Shayan confirmed. States that patient desires antibiotics and all aspects of care. I called [facility] to provide update to them on patients admission. Patient enrolled with them over the past month for terminal diagnosis of end-stage- COPD. Palliative care will continue to follow patients status from a distance as GOC are clear and full care is desired. Patient remains FULL CODE. (2) Acute and chronic respiratory failure Current Visit: No Status: Acute Assessment and plan: Pulmonology following. Patient intubated. Qualifiers: Qualified Code(s): J96.21 - Acute and chronic respiratory failure with hypoxia; J96.22 - Acute and chronic respiratory failure with hypercapnia (3) Morbid obesity with BMI of 70 and over, adult Current Visit: No Status: Chronic (4) Atrial fibrillation Current Visit: No Status: Chronic Qualifiers: Qualified Code(s): I48.0 - Paroxysmal atrial fibrillation Palliative-CN HPI - Data of Consult Patient: new to practice Consult date: 08/23/18 Requesting Physician: Walter Interiano MD Primary Care Provider: PCP NONE - Consult Narrative Palliative Care/Comfort Measures: Palliative care Reason for consult: Goals of care. Patient enrolled in hospice History of present illness: Ms. Mccormick is a 57 year old female admitted from home for acute respiratory failure. Patient transported to [facility] from [facility] per EMS. Patient intubated and admitted to ICU. At the time of consult, the patient is intubated, receiving sedation. PMH obtained via telephone from michael Downey. Patient is morbidly obese in no acute distress. Patient with significant history of COPD, CHF, DM. Labs revealed positive for adenovirus. Patient receiving antibiotics and vasopressor support for possible sepsis. Palliative care consult is for [facility] discussion as patient is currently enrolled in hospice care with [facility]. Patient is FULL CODE. CC: Walter Interiano MD - Time Spent with Patient Time: Total time spent is greater than 50% in coordination of care (as documented) at patient's floor/unit and/or counseling patient: Time with patient: 45 minutes Past Med Surg Social Fam HX - Past Medical History Source: old records reviewed, obtained from family, nursing notes reviewed Medical history: arthritis, asthma, atrial fibrillation, CHF, COPD, diabetes, GERD, hyperlipidemia, hypertension, osteoporosis, valvular heart disease Additional medical history: Smoker Psychiatric history: no psych history - Past Surgical History Surgical History: other Additional surgical history: Tubal ligation - Social History Smoking Status: Former smoker Smokeless Tobacco Status: No Alcohol use: rarely Drug use: none - Family History Mother Living Status: Hx Family Cardiac Disorders: Yes Hx Family Endocrine Disorder: Yes (DM) Father Living Status: Hx Family Respiratory Disorders: Yes (Asthma, COPD, Emphysema) Medications and Allergies Albuterol Sulfate [Proair Hfa] 2 puff IH Q4H PRN 09/08/15 [History] Aspirin 325 mg PO DAILY #60 tablet 09/19/15 [Rx] Oxygen 2 - 5 l NS AD 07/04/17 [History] Acetaminophen [Tylenol] 650 mg PO Q6HR PRN tablet 07/24/17 [Rx] Diltiazem CD (24hr) [Cardizem CD] 360 mg PO DAILY cap.er.24h 07/24/17 [Rx] Metoprolol [Lopressor] 50 mg PO BID tablet 07/24/17 [Rx] Ipratropium/Albuterol Neb [Duoneb] 3 ml IH Q4H PRN 10/30/17 [History] Simvastatin [Zocor] 10 mg PO DAILY 10/30/17 [History] Ferrous Sulfate 324 mg PO BID 07/14/18 [History] Furosemide [Lasix] 80 mg PO BID 07/14/18 [History] Potassium Chloride [Klor-Con 10] 20 meq PO BID 07/14/18 [History] Sennosides [Senna] 8.6 mg PO BID 07/14/18 [History] Tramadol HCl [Ultram] 50 mg PO BID PRN 07/14/18 [History] levoFLOXacin [Levofloxacin] 500 mg PO DAILY 08/22/18 [History] predniSONE [PredniSONE] 10 mg PO AD 08/22/18 [History] Allergy/AdvReac Type Severity Reaction Status Date / Time Penicillins Allergy Rash Verified 07/14/18 11:38 ROS unobtainable: due to mental status - Constitutional Constitutional ROS PAL: fever(s) - EENT Eyes: requires corrective lenses - Cardiovascular Cardiovascular ROS: edema, irregular heart rhythm, pedal edema - Respiratory Respiratory: dyspnea on exertion - Musculoskeletal Musculoskeletal ROS IM: muscle weakness, myalgias - Neurological Neurological ROS: weakness Palliative Care-Exam - Constitutional Vitals: Temp Pulse Resp BP Pulse Ox 99.4 F 126 14 89/59 93 08/23/18 10:00 08/23/18 10:00 08/23/18 10:00 08/23/18 10:00 08/23/18 10:00 General appearance: Present: no acute distress - Head Head Exam: Present: atraumatic, normal inspection - Eye Eye exam: Present: PERRL Pupils: Present: PERRL - ENT ENT exam: Present: mucous membranes moist - Expanded ENT Exam Mouth Exam: Present: moist (ET tube intact and secure) - Respiratory Respiratory exam: Present: decreased breath sounds - Expanded Respiratory Exam Location: decreased breath sounds: Left, Right, Lower - Cardiovascular Cardiovascular exam: Present: irregular rhythm - Expanded Cardiovascular Exam Peripheral pulses: 1+: Femoral (L) PM, Femoral (R) PM, Posterior Tibialis (L), Posterior Tibialis (R), Dorsalis Pedis (L) PM, Dorsalis Pedis (R) PM, 2+: Carotid (L) PM, Carotid (R) PM, Radial (L), Radial (R) - GI/Abdominal Exam GI/Abdominal exam: Present: diminished bowel sounds, soft - Rectal Rectal exam: Present: deferred - Catheter Type: Urethral (Leigh) - Neurological Exam Neurological exam: Present: altered (sedated for ventilator management) Internal Medicine - CN: Reslt - Labs CBC & Chem 7: 08/23/18 03:30 08/23/18 03:30 Labs: Short CBC 08/23/18 Range/Units 03:30 WBC 15.7 H (4.3-11.1) K/mcL Hgb 12.7 (11.5-15.4) g/dL Hct 42.6 (35.3-44.9) % Plt Count 242 (140-400) K/mcL BMP 08/23/18 03:30 Sodium 144 Potassium 4.4 Chloride 109 H Carbon Dioxide 28 BUN 19 Creatinine 0.77 Glucose 107 H Calcium 8.2 L - ABG Interpretation ABG results: ABG ABG pH 7.25 pH Units (7.32-7.45) L 08/23/18 04:37 ABG pCO2 65 mmHg (35-45) H 08/23/18 04:37 ABG pO2 84 mmHg (85-104) L 08/23/18 04:37 ABG O2 Saturation 94 % (95-98) L 08/23/18 04:37 - Impressions Impressions Chest X-Ray 08/22/18 14:20 IMPRESSION: Mild basilar interstitial changes, possibly mild edema with small effusions. Satisfactory position of endotracheal tube. D/ / Tevin Ruiz MD / Tevin Ruiz MD Interpreting Provider: Tevin Ruiz MD X-Ray 08/22/18 14:20 IMPRESSION: Enteric catheter in appropriate position with tip in the distal gastric body. D/ / Tevin Ruiz MD / Tevin Ruiz MD Interpreting Provider: Tevin Ruiz MD Chest X-Ray 08/23/18 04:00 IMPRESSION: 1. Worsening multi lobar airspace opacities in the right lung. 2. Stable mild enlargement of the cardiac silhouette. 3. Small bilateral pleural effusions. D/ / Erasto Reid MD / Erasto Reid MD Interpreting Provider: Erasto Reid MD Consult Discharge Plan - Plan Referrals: NONE,PCP [Primary Care Provider] - Palliative Quality Palliative Quality: Screen for Code Status: Yes, Screen for Goals of Care: Yes, Screen for Pain: Yes, If Pain Regimen Started, Initiate Bowel Regimen: Yes, Screen for Nausea/Vomitting: Yes Code Status: 08/22/18 14:41 Resuscitation Status: Active [RES] Routine Comment: Resuscitation Status: Full Code
[2018-08-23] MEDS: MethylPREDNISolone 40 MG/ML VIAL IVP SCH (16:14)
[2018-08-23] MEDS: Norepinephrine 8 MG in D5% in Water 250 ML IVC SCH (18:58)
[2018-08-23] MEDS ORDERED: Acetaminophen IV 1,000 MG/100 ML INFUS..BTL IVPB ONE (23:47)
[2018-08-24] MEDS: Cefepime HCl 2,000 MG in 0.9 % Sodium Chloride Mini Bag 100 ML IVPB SCH ×4 (00:15→23:29)
[2018-08-24] MEDS: MethylPREDNISolone 40 MG/ML VIAL IVP SCH ×4 (00:16→23:36)
[2018-08-24] MEDS: Insulin LISPRO 300 UNITS/3 ML VIAL SQ SCH ×5 (00:17→23:42)
[2018-08-24] MEDS: Artificial Tears SOLN 15 ML BOTTLE BOTH EYES SCH ×7 (00:17→23:40)
[2018-08-24] MEDS: Dexmedetomidine HCl 400 MCG/100 ML MLS IVC SCH ×8 (00:59→23:35)
[2018-08-24] MEDS: Levalbuterol Neb 0.63 MG/3 ML IH SCH ×4 (03:10→21:19)
[2018-08-24] MEDS: Norepinephrine 8 MG in D5% in Water 250 ML IVC SCH (03:35)
[2018-08-24 04:00] LABS: Hematocrit 41.9 % (35.3-44.9); Hemoglobin 12.8 g/dL (11.5-15.4); Mean Corpuscular HGB Conc 30.5 g/dL (31.6-35.5); Mean Corpuscular Hemoglobin 31.2 pg (28.0-33.3); Mean Corpuscular Volume 102.2 fL (83.0-100.0); Mean Platelet Volume 10.3 fL (9.4-12.4); Platelet Count 214 K/mcL (140-400); Red Cell Distribution Width 16.3 % (11.5-14.5)
[2018-08-24 04:11] LABS: BUN/Creatinine Ratio 19 (6-26); Blood Urea Nitrogen 15 mg/dL (6-20); Calcium 8.2 mg/dL (8.6-10.3); Carbon Dioxide 27 mEq/L (23-29); Chloride 108 mEq/L (98-107); Glucose 230 mg/dL (70-105); Osmolality,Calculated 298 (280-300); Potassium 4.6 mEq/L (3.5-5.1); Sodium 140 mEq/L (136-145); eGFR For Non-African Americans > 60 (> 60)
[2018-08-24 04:45] LABS: Lymphocytes # 0.4 K/mcL (0.6-4.6); Neutrophils # 9.2 K/mcL (1.6-8.9)
[2018-08-24 04:46] LABS: Anisocytosis 1+ (Not Present); Platelet Estimate Normal (Normal)
[2018-08-24 04:47] LABS: Macrocytosis Present (Not Present)
[2018-08-24 04:48] LABS: ABG Base Excess 1 mEq/L (-2 to 3); ABG HCO3 27 mEq/L (21-27); ABG Oxygen Saturation 97 % (95-98); ABG PCO2 51 mmHg (35-45); ABG PH 7.33 pH Units (7.32-7.45); ABG PO2 97 mmHg (85-104); ABG TCO2 29 mEq/L (20-26); Blood Gas PEEP 8 cm H2O; Blood Gas Respiration Rate 14; Blood Gas VT 620 cc
[2018-08-24] MEDS: *HR* Heparin 5,000 UNIT/ML VIAL SQ SCH ×2 (05:22→17:04)
[2018-08-24] MEDS: FentaNYL (PF) 1,000 MCG in 0.9 % Sodium Chloride 80 ML IVC SCH ×2 (05:23→21:09)
[2018-08-24] MEDS: Chlorhexidine Rinse 15 ML MOUTHWASH MM SCH ×2 (08:06→20:40)
[2018-08-24] MEDS: Clotrimazole 1% CRM 15 GM TUBE TP SCH ×2 (08:06→20:38)
[2018-08-24] MEDS: Pantoprazole 40 MG VIAL IVP SCH (08:24)
--- NOTE | 2018-08-24 12:44 | Pulmonology Progress Note ---
Date of Encounter: 08/24/18 Time of Encounter: 07:00 Assessment and Plan (1) Pneumonia Current Visit: Yes Status: Acute To continue broad-spectrum antibiotics. Qualifiers: Pneumonia type: due to unspecified organism Laterality: unspecified laterality Lung location: unspecified part of lung Qualified Code(s): J18.9 - Pneumonia, unspecified organism (2) Acute exacerbation of chronic obstructive airways disease Current Visit: No Status: Acute Patient presented with acute exacerbation of COPD secondary to adenovirus pneumonia now complicated by possible bacterial pneumonia suspected MRSA pneumonia we will continue with broad-spectrum antibiotic coverage, steroids. (3) Acute and chronic respiratory failure Current Visit: No Status: Acute Patient has acute on chronic hypoxic hypercapnic respiratory failure secondary to COPD exacerbation due to adenovirus pneumonia possible secondary bacterial p neumonia complicated by acute on chronic diastolic heart failure. Qualifiers: Respiratory failure complication: hypoxia and hypercapnia Qualified Code(s): J96.21 - Acute and chronic respiratory failure with hypoxia; J96.22 - Acute and chronic respiratory failure with hypercapnia (4) DVT prophylaxis Current Visit: Yes Status: Acute Continue the current regimen of prophylaxis. (5) Atrial fibrillation Current Visit: No Status: Chronic Rate controlled now. Qualifiers: Atrial fibrillation type: chronic Qualified Code(s): I48.2 - Chronic atrial fibrillation (6) Morbid obesity Current Visit: No Status: Chronic Patient morbid obesity is complicating the current episode of acute and chronic respiratory failure might be a difficult extubation. Subjective Principal diagnosis: acute exacerbation of COPD with pneumonia Interval history: Patient did not have any acute events overnight. Objective PUL Vital signs: Last Vital Signs Temp 103.1 F H 08/24/18 12:14 Pulse 92 08/24/18 11:00 Resp 16 08/24/18 11:35 BP 117/7 08/24/18 11:00 Pulse Ox 94 08/24/18 11:35 General appearance: asleep Auscultation: bilateral: diminished breath sounds, wheezes (scattered wheezes) Cardiovascular: irregular rhythm Extremities: edema unable to assess due to mental status Ventilator Settings Ventilator Settings: Ventilator Settings, Last 8 Hours Ventilator Tidal Volume 620 Setting Ventilator Tidal Volume 620 Setting Ventilator Tidal Volume 620 Setting Ventilator Tidal Volume 620 Setting Ventilator Tidal Volume 620 Setting Ventilator Tidal Volume 620 Setting Ventilator Tidal Volume 620 Setting Ventilator Tidal Volume 620 Setting Ventilator Tidal Volume 620 Setting Ventilator Tidal Volume 620 Setting Ventilator Respiratory Rate 14 Setting Ventilator Respiratory Rate 14 Setting Ventilator Respiratory Rate 14 Setting Ventilator Respiratory Rate 14 Setting Ventilator Respiratory Rate 14 Setting Ventilator Respiratory Rate 14 Setting Ventilator Respiratory Rate 14 Setting Ventilator Respiratory Rate 14 Setting Ventilator Respiratory Rate 14 Setting Ventilator Respiratory Rate 14 Setting Actual Respiratory Rate 16 Actual Respiratory Rate 17 Actual Respiratory Rate 15 Actual Respiratory Rate 15 Actual Respiratory Rate 15 Actual Respiratory Rate 15 Actual Respiratory Rate 15 Actual Respiratory Rate 15 Actual Respiratory Rate 15 Actual Respiratory Rate 16 Positive End Expiratory 8 Pressure Positive End Expiratory 8 Pressure Positive End Expiratory 8 Pressure Positive End Expiratory 8 Pressure Positive End Expiratory 8 Pressure Positive End Expiratory 8 Pressure Positive End Expiratory 8 Pressure Positive End Expiratory 8 Pressure Positive End Expiratory 8 Pressure Positive End Expiratory 8 Pressure Peak Inspiratory Airway 35 Pressure Peak Inspiratory Airway 35 Pressure Peak Inspiratory Airway 33 Pressure Peak Inspiratory Airway 34 Pressure Peak Inspiratory Airway 33 Pressure Peak Inspiratory Airway 34 Pressure Peak Inspiratory Airway 31 Pressure Peak Inspiratory Airway 33 Pressure Peak Inspiratory Airway 33 Pressure Peak Inspiratory Airway 37 Pressure Results - Laboratory Findings CBC and BMP: 08/24/18 03:45 08/24/18 03:45 ABG ABG pH 7.33 pH Units (7.32-7.45) 08/24/18 04:45 ABG pCO2 51 mmHg (35-45) H 08/24/18 04:45 ABG pO2 97 mmHg (85-104) 08/24/18 04:45 ABG O2 Saturation 97 % (95-98) 08/24/18 04:45 Abnormal lab findings: Abnormal lab results MCV 102.2 fL (83.0-100.0) H 08/24/18 03:45 MCHC 30.5 g/dL (31.6-35.5) L 08/24/18 03:45 RDW 16.3 % (11.5-14.5) H 08/24/18 03:45 Band Neutrophils % 16.0 % (0-4) H 08/24/18 03:45 Metamyelocytes % 2.0 % (0) H 08/24/18 03:45 Neutrophils # 9.2 K/mcL (1.6-8.9) H 08/24/18 03:45 Lymphocytes # 0.4 K/mcL (0.6-4.6) L 08/24/18 03:45 Anisocytosis 1+ (Not Present) A 08/24/18 03:45 Macrocytosis Present (Not Present) A 08/24/18 03:45 ABG pCO2 51 mmHg (35-45) H 08/24/18 04:45 ABG Total CO2 29 mEq/L (20-26) H 08/24/18 04:45 Chloride 108 mEq/L (98-107) H 08/24/18 03:45 Glucose 230 mg/dL (70-105) H 08/24/18 03:45 POC Glucose 189 mg/dL (70-99) H 08/23/18 23:13 Calcium 8.2 mg/dL (8.6-10.3) L 08/24/18 03:45 Nasal Screen MRSA (PCR) Positive (Negative) A 08/22/18 15:20 Adenovirus (PCR) DETECTED (Not Detect) A 08/22/18 15:20 - Clinical Findings Intake & Output: Intake & Output 08/23/18 08/24/18 08/24/18 23:59 07:59 15:59 Intake Total 936 / 936 1553 / 1553 406 / 406 Output Total 1650 / 1650 400 / 400 350 / 350 Balance -714 / -714 1153 / 1153 56 / 56 Weight 168.3 kg 168.3 kg Consult Discharge Plan - Plan Referrals: NONE,PCP [Primary Care Provider] - Critical Care Time Critical Care Time: Yes Total Critical Care Time: 40 Attestation: I spent 40 minutes of Critical Care time with this patient. It involved decision making of high complexity to assess, manipulate, and support vital organ system failure and/or to prevent further life threatening deterioration of the patient's condition. The time involved in the performance of separately reportable procedures was not counted toward critical care time.
[2018-08-25] MEDS: Dexmedetomidine HCl 400 MCG/100 ML MLS IVC SCH ×7 (02:54→22:20)
[2018-08-25] MEDS: Artificial Tears SOLN 15 ML BOTTLE BOTH EYES SCH ×6 (02:56→23:35)
[2018-08-25] MEDS: Levalbuterol Neb 0.63 MG/3 ML IH SCH ×4 (04:39→21:17)
[2018-08-25 05:17] LABS: ABG Base Excess 4 mEq/L (-2 to 3); ABG HCO3 30 mEq/L (21-27); ABG Oxygen Saturation 98 % (95-98); ABG PCO2 47 mmHg (35-45); ABG PH 7.41 pH Units (7.32-7.45); ABG PO2 97 mmHg (85-104); ABG TCO2 31 mEq/L (20-26); Blood Gas PEEP 8 cm H2O; Blood Gas Respiration Rate 14; Blood Gas VT 620 cc
[2018-08-25] MEDS: *HR* Heparin 5,000 UNIT/ML VIAL SQ SCH ×2 (05:18→17:25)
[2018-08-25] MEDS: Insulin LISPRO 300 UNITS/3 ML VIAL SQ SCH ×4 (05:22→23:34)
[2018-08-25] MEDS: MetroNIDAZOLE 500 MG/100 ML 500 MG/100 ML BAG IVPB SCH ×3 (08:39→23:34)
[2018-08-25] MEDS: Cefepime HCl 2,000 MG in 0.9 % Sodium Chloride Mini Bag 100 ML IVPB SCH ×3 (08:39→23:33)
[2018-08-25] MEDS: Chlorhexidine Rinse 15 ML MOUTHWASH MM SCH ×2 (08:40→20:31)
[2018-08-25] MEDS: MethylPREDNISolone 40 MG/ML VIAL IVP SCH ×3 (08:40→23:34)
[2018-08-25] MEDS: Clotrimazole 1% CRM 15 GM TUBE TP SCH ×2 (08:41→20:33)
[2018-08-25] MEDS: Pantoprazole 40 MG VIAL IVP SCH (08:41)
[2018-08-25 09:49] LABS: Basophils % 0.1 %; Hematocrit 34.5 % (35.3-44.9); Immature Granulocytes % 0.7 % (0-4); Lymphocytes % 9.1 %; Mean Corpuscular HGB Conc 31.3 g/dL (31.6-35.5); Mean Corpuscular Hemoglobin 31.8 pg (28.0-33.3); Mean Corpuscular Volume 101.5 fL (83.0-100.0); Mean Platelet Volume 10.3 fL (9.4-12.4); Monocytes # 0.5 K/mcL (0.0-1.3); Monocytes % 4.7 %; Neutrophils # 9.3 K/mcL (1.6-8.9); Platelet Count 190 K/mcL (140-400); Red Cell Distribution Width 16.3 % (11.5-14.5); Segmented Neutrophils % 85.4 %
[2018-08-25 09:50] LABS: Hemoglobin 10.8 g/dL (11.5-15.4)
[2018-08-25] MEDS: FentaNYL (PF) 1,000 MCG in 0.9 % Sodium Chloride 80 ML IVC SCH ×2 (10:04→22:24)
[2018-08-25 10:08] LABS: BUN/Creatinine Ratio 33 (6-26); Blood Urea Nitrogen 25 mg/dL (6-20); Calcium 8.3 mg/dL (8.6-10.3); Carbon Dioxide 28 mEq/L (23-29); Chloride 110 mEq/L (98-107); Glucose 182 mg/dL (70-105); Osmolality,Calculated 303 (280-300); Potassium 4.6 mEq/L (3.5-5.1); Sodium 142 mEq/L (136-145); eGFR For Non-African Americans > 60 (> 60)
[2018-08-25] MEDS ORDERED: Acetaminophen IV 500 MG/50 ML INFUS..BTL IVPB ONE (10:28)
--- NOTE | 2018-08-25 10:34 | Pulmonology Progress Note ---
Date of Encounter: 08/25/18 Time of Encounter: 07:30 Assessment and Plan (1) Pneumonia Current Visit: Yes Status: Acute To continue broad-spectrum antibiotics. with spiking temperature possible pneumonia to rule out other intrabdominal infection it is very difficult she wont fit in the CT scanner because of her abdominal girth Qualifiers: Pneumonia type: due to unspecified organism Laterality: unspecified laterality Lung location: unspecified part of lung Qualified Code(s): J18.9 - Pneumonia, unspecified organism (2) Acute exacerbation of chronic obstructive airways disease Current Visit: No Status: Acute Patient presented with acute exacerbation of COPD secondary to adenovirus pneumonia now complicated by possible bacterial pneumonia suspected MRSA pneumonia we will continue with broad-spectrum antibiotic coverage, steroids. 08/25 Patient still has wheezing nonsuppressed with adenovirus for COPD exacerbation complicated by pneumonia . Prolonged course patient has increased work due to both increased resistance and compliance.To continue the current management. (3) Acute and chronic respiratory failure Current Visit: No Status: Acute Patient has acute on chronic hypoxic hypercapnic respiratory failure secondary to COPD exacerbation due to adenovirus pneumonia possible secondary bacterial pneumonia complicated by acute on chronic diastolic heart failure. Qualifiers: Respiratory failure complication: hypoxia and hypercapnia Qualified Code(s): J96.21 - Acute and chronic respiratory failure with hypoxia; J96.22 - Acute and chronic respiratory failure with hypercapnia (4) DVT prophylaxis Current Visit: Yes Status: Acute Continue the current regimen of prophylaxis. (5) Atrial fibrillation Current Visit: No Status: Chronic Rate controlled now. Qualifiers: Atrial fibrillation type: chronic Qualified Code(s): I48.2 - Chronic atrial fibrillation (6) Morbid obesity Current Visit: No Status: Chronic Patient morbid obesity is complicating the current episode of acute and chronic respiratory failure might be a difficult extubation. (7) Acute on chronic diastolic heart failure Current Visit: Yes Status: Acute Patient has acute on chronic diastolic heart failure to continue diuresis. Subjective Principal diagnosis: acute exacerbation of COPD with pneumonia Interval history: Patient did not have any acute events overnight. Patient had two spikes of fever blood culture were ordered Objective PUL Vital signs: Last Vital Signs Temp 101.1 F H 08/25/18 08:24 Pulse 82 08/25/18 10:00 Resp 16 08/25/18 10:00 BP 112/77 08/25/18 10:00 Pulse Ox 94 08/25/18 10:00 General appearance: asleep Auscultation: bilateral: diminished breath sounds, rales (scattered rales ) Cardiovascular: irregular rhythm Gastrointestinal: hypoactive bowel sounds Integumentary: erythema Extremities: edema unable to assess due to mental status Ventilator Settings Ventilator Settings: Ventilator Settings, Last 8 Hours Ventilator Tidal Volume 620 Setting Ventilator Tidal Volume 620 Setting Ventilator Tidal Volume 620 Setting Ventilator Tidal Volume 620 Setting Ventilator Tidal Volume 620 Setting Ventilator Tidal Volume 620 Setting Ventilator Tidal Volume 620 Setting Ventilator Tidal Volume 620 Setting Ventilator Tidal Volume 620 Setting Ventilator Tidal Volume 620 Setting Ventilator Tidal Volume 620 Setting Ventilator Tidal Volume 620 Setting Ventilator Tidal Volume 620 Setting Ventilator Respiratory Rate 14 Setting Ventilator Respiratory Rate 14 Setting Ventilator Respiratory Rate 14 Setting Ventilator Respiratory Rate 14 Setting Ventilator Respiratory Rate 14 Setting Ventilator Respiratory Rate 14 Setting Ventilator Respiratory Rate 14 Setting Ventilator Respiratory Rate 14 Setting Ventilator Respiratory Rate 14 Setting Ventilator Respiratory Rate 14 Setting Ventilator Respiratory Rate 14 Setting Ventilator Respiratory Rate 14 Setting Ventilator Respiratory Rate 14 Setting Actual Respiratory Rate 16 Actual Respiratory Rate 15 Actual Respiratory Rate 14 Actual Respiratory Rate 16 Actual Respiratory Rate 16 Actual Respiratory Rate 16 Actual Respiratory Rate 16 Actual Respiratory Rate 16 Actual Respiratory Rate 16 Actual Respiratory Rate 16 Actual Respiratory Rate 16 Actual Respiratory Rate 16 Positive End Expiratory 8 Pressure Positive End Expiratory 8 Pressure Positive End Expiratory 8 Pressure Positive End Expiratory 8 Pressure Positive End Expiratory 8 Pressure Positive End Expiratory 8 Pressure Positive End Expiratory 8 Pressure Positive End Expiratory 8 Pressure Positive End Expiratory 8 Pressure Positive End Expiratory 8 Pressure Positive End Expiratory 8 Pressure Positive End Expiratory 8 Pressure Positive End Expiratory 8 Pressure Peak Inspiratory Airway 35 Pressure Peak Inspiratory Airway 32 Pressure Peak Inspiratory Airway 32 Pressure Peak Inspiratory Airway 33 Pressure Peak Inspiratory Airway 32 Pressure Peak Inspiratory Airway 28 Pressure Peak Inspiratory Airway 31 Pressure Peak Inspiratory Airway 33 Pressure Results - Laboratory Findings CBC and BMP: 08/25/18 07:37 08/25/18 07:37 ABG ABG pH 7.41 pH Units (7.32-7.45) 08/25/18 05:09 ABG pCO2 47 mmHg (35-45) H 08/25/18 05:09 ABG pO2 97 mmHg (85-104) 08/25/18 05:09 ABG O2 Saturation 98 % (95-98) 08/25/18 05:09 Abnormal lab findings: Abnormal lab results RBC 3.40 M/mcL (3.82-4.97) L 08/25/18 07:37 Hgb 10.8 g/dL (11.5-15.4) L D 08/25/18 07:37 Hct 34.5 % (35.3-44.9) L 08/25/18 07:37 MCV 101.5 fL (83.0-100.0) H 08/25/18 07:37 MCHC 31.3 g/dL (31.6-35.5) L 08/25/18 07:37 RDW 16.3 % (11.5-14.5) H 08/25/18 07:37 Band Neutrophils % 16.0 % (0-4) H 08/24/18 03:45 Metamyelocytes % 2.0 % (0) H 08/24/18 03:45 Neutrophils # 9.3 K/mcL (1.6-8.9) H 08/25/18 07:37 Anisocytosis 1+ (Not Present) A 08/24/18 03:45 Macrocytosis Present (Not Present) A 08/24/18 03:45 ABG pCO2 47 mmHg (35-45) H 08/25/18 05:09 ABG HCO3 30 mEq/L (21-27) H 08/25/18 05:09 ABG Total CO2 31 mEq/L (20-26) H 08/25/18 05:09 ABG Base Excess 4 mEq/L (-2 to 3) H 08/25/18 05:09 Chloride 110 mEq/L (98-107) H 08/25/18 07:37 BUN 25 mg/dL (6-20) H 08/25/18 07:37 BUN/Creatinine Ratio 33 (6-26) H 08/25/18 07:37 Glucose 182 mg/dL (70-105) H 08/25/18 07:37 POC Glucose 187 mg/dL (70-99) H 08/25/18 05:22 Calculated Osmolality 303 (280-300) H 08/25/18 07:37 Calcium 8.3 mg/dL (8.6-10.3) L 08/25/18 07:37 Nasal Screen MRSA (PCR) Positive (Negative) A 08/22/18 15:20 Vancomycin Trough 41 mcg/mL (5-10) H 08/24/18 19:02 Adenovirus (PCR) DETECTED (Not Detect) A 08/22/18 15:20 - Clinical Findings Intake & Output: Intake & Output 08/24/18 08/25/18 08/25/18 23:59 07:59 15:59 Intake Total 610 / 610 300 / 300 440 / 440 Output Total 350 / 350 400 / 400 195 / 195 Balance 260 / 260 -100 / -100 245 / 245 Weight 168 kg Consult Discharge Plan - Plan Referrals: NONE,PCP [Primary Care Provider] -
[2018-08-25 11:40] LABS: Bilirubin,Urine Negative (Negative); Blood,Urine Negative (Negative); Clarity,Urine Clear (Clear); Color,Urine Yellow (Yellow); Glucose,Urine (UA) Normal (Normal); Ketones,Urine Negative (Negative); Leukocyte Esterase,Urine Negative (Negative); Nitrite,Urine Negative (Negative); Protein,Urine 30 mg/dL (Neg-Trace); Specific Gravity,Urine 1.027 (1.010-1.025); Urobilinogen,Urine Normal (Normal)
[2018-08-25 11:43] LABS: Bacteria,Urine None Seen per hpf (None-Few); Hyaline Casts,Urine Few per lpf (None-Few); RBC,Urine 0-3 per hpf (0-3); Squamous Epithelial Cell,Urine Many per lpf (None-Few)
--- NOTE | 2018-08-25 14:12 | Palliative Progress Note ---
Date of Encounter: 08/25/18 Time of Encounter: 10:00 - Assessment and plan (1) Acute and chronic respiratory failure Current Visit: No Status: Acute Assessment and plan: Patient remains intubated and sedated. Management per Pulmonary ICU team. Qualifiers: Respiratory failure complication: hypoxia and hypercapnia Qualified Code(s): J96.21 - Acute and chronic respiratory failure with hypoxia; J96.22 - Acute and chronic respiratory failure with hypercapnia (2) Goals of care, counseling/discussion Current Visit: Yes Status: Acute Assessment and plan: Patient to remain FULL CODE with full aggressive treatment. (3) Palliative care encounter Current Visit: Yes Status: Acute (4) Morbid obesity with BMI of 70 and over, adult Current Visit: No Status: Chronic (5) Constipation Current Visit: Yes Status: Acute Assessment and plan: Patient has had no bowel movement since admission. Requested ICU team, Dr. Quiñones and Dr. Espinal, consider KUB prior to intiating bowel regimen to r/o ileus. Qualifiers: Constipation type: slow transit constipation Qualified Code(s): K59.01 - Slow transit constipation (6) Fever Current Visit: No Status: Acute Assessment and plan: Patient had continued to have fevers greater than 101F, ordered Tylenol. Qualifiers: Fever type: unspecified Qualified Code(s): R50.9 - Fever, unspecified (7) Chronic a-fib Current Visit: Yes Status: Chronic - Time Spent With Patient Total time spent is greater than 50% in coordination of care (as documented) at patient's floor/unit and/or counseling patient: less than 15 minutes - Subjective Interval history: Patient lying in bed with eyes closed upon arrival for assessment. Patient remains intubated and sedated. Patient has had no bowel movement, primary RN presented concern for Ileus. Patient also tachypneic, with sedation infusing. Patient suffering from continued elevated fevers, despite antibiotic treatment. - Constitutional Vitals: Abnormal lab results RBC 3.40 M/mcL (3.82-4.97) L 08/25/18 07:37 Hgb 10.8 g/dL (11.5-15.4) L D 08/25/18 07:37 Hct 34.5 % (35.3-44.9) L 08/25/18 07:37 MCV 101.5 fL (83.0-100.0) H 08/25/18 07:37 MCHC 31.3 g/dL (31.6-35.5) L 08/25/18 07:37 RDW 16.3 % (11.5-14.5) H 08/25/18 07:37 Band Neutrophils % 16.0 % (0-4) H 08/24/18 03:45 Metamyelocytes % 2.0 % (0) H 08/24/18 03:45 Neutrophils # 9.3 K/mcL (1.6-8.9) H 08/25/18 07:37 Anisocytosis 1+ (Not Present) A 08/24/18 03:45 Macrocytosis Present (Not Present) A 08/24/18 03:45 ABG pCO2 47 mmHg (35-45) H 08/25/18 05:09 ABG HCO3 30 mEq/L (21-27) H 08/25/18 05:09 ABG Total CO2 31 mEq/L (20-26) H 08/25/18 05:09 ABG Base Excess 4 mEq/L (-2 to 3) H 08/25/18 05:09 Chloride 110 mEq/L (98-107) H 08/25/18 07:37 BUN 25 mg/dL (6-20) H 08/25/18 07:37 BUN/Creatinine Ratio 33 (6-26) H 08/25/18 07:37 Glucose 182 mg/dL (70-105) H 08/25/18 07:37 POC Glucose 169 mg/dL (70-99) H 08/25/18 11:13 Calculated Osmolality 303 (280-300) H 08/25/18 07:37 Calcium 8.3 mg/dL (8.6-10.3) L 08/25/18 07:37 Ur Specific [place] 1.027 (1.010-1.025) H 08/25/18 11:17 Urine Protein 30 mg/dL (Neg-Trace) H 08/25/18 11:17 Urine Microscopic WBC 3-5 per hpf (0-3) H 08/25/18 11:17 Ur Squamous Epith Cells Many per lpf (None-Few) H 08/25/18 11:17 Nasal Screen MRSA (PCR) Positive (Negative) A 08/22/18 15:20 Vancomycin Trough 41 mcg/mL (5-10) H 08/24/18 19:02 Adenovirus (PCR) DETECTED (Not Detect) A 08/22/18 15:20 General appearance: Present: morbidly obese, no acute distress - Head Head exam: Present: atraumatic, normal inspection - Eye Eye exam: Present: normal appearance, PERRL. Absent: nystagmus, periorbital s welling, periorbital tenderness - ENT ENT exam: Present: mucous membranes moist, normal external ear exam - Neck Neck exam: Present: normal inspection - Respiratory Respiratory exam: Present: decreased breath sounds, rhonchi - Cardiovascular Cardiovascular exam: Present: irregular rhythm - GI/Abdominal GI/Abdominal exam: Present: diminished bowel sounds - Rectal Rectal exam: Present: deferred - Extremities Exam Extremities exam: Present: pedal edema. Absent: tenderness - Neurological Exam Neurological exam: Present: altered - Psychiatric Psychiatric exam: Present: flat affect - Skin Skin exam: Present: dry, warm. Absent: intact Palliative Quality Palliative Quality: Screen for Code Status: Yes, Screen for Goals of Care: Yes, Screen for Pain: Yes, If Pain Regimen Started, Initiate Bowel Regimen: Yes, Screen for Nausea/Vomitting: Yes Code Status: 08/22/18 14:41 Resuscitation Status: Active [RES] Routine Comment: Resuscitation Status: Full Code - Labs CBC & Chem 7: 08/25/18 07:37 08/25/18 07:37 Labs: Laboratory Results - last 24 hr 08/24/18 08/24/18 08/24/18 05:30 11:16 19:02 WBC RBC Hgb Hct MCV MCH MCHC RDW Plt Count MPV Immature Gran % Seg Neutrophils % Lymphocytes % Monocytes % Eosinophils % Basophils % Neutrophils # Lymphocytes # Monocytes # Eosinophils # Basophils # ABG pH ABG pCO2 ABG pO2 ABG HCO3 ABG Total CO2 ABG O2 Saturation ABG Base Excess Respiration Rate O2 Delivery Device Inspired O2 Tidal Volume PEEP Sodium Potassium Chloride Carbon Dioxide BUN Creatinine Est GFR ( Amer) Est GFR (Non-Af Amer) BUN/Creatinine Ratio Glucose POC Glucose 212 H 195 H Calculated Osmolality Calcium Urine Color Urine Clarity Urine pH Ur Specific [place] Urine Protein Urine Glucose (UA) Urine Ketones Urine Blood Urine Nitrite Urine Bilirubin Urine Urobilinogen Ur Leukocyte Esterase Urine Microscopic RBC Urine Microscopic WBC Ur Squamous Epith Cells Urine Bacteria Hyaline Casts Ur Culture Indicated? Vancomycin Trough 41 H 08/24/18 08/24/18 08/25/18 19:03 23:42 05:09 WBC RBC Hgb Hct MCV MCH MCHC RDW Plt Count MPV Immature Gran % Seg Neutrophils % Lymphocytes % Monocytes % Eosinophils % Basophils % Neutrophils # Lymphocytes # Monocytes # Eosinophils # Basophils # ABG pH 7.41 ABG pCO2 47 H ABG pO2 97 ABG HCO3 30 H ABG Total CO2 31 H ABG O2 Saturation 98 ABG Base Excess 4 H Respiration Rate 14 O2 Delivery Device Adult Vent Inspired O2 50.0 Tidal Volume 620 PEEP 8 Sodium Potassium Chloride Carbon Dioxide BUN Creatinine Est GFR ( Amer) Est GFR (Non-Af Amer) BUN/Creatinine Ratio Glucose POC Glucose 224 H 220 H Calculated Osmolality Calcium Urine Color Urine Clarity Urine pH Ur Specific [place] Urine Protein Urine Glucose (UA) Urine Ketones Urine Blood Urine Nitrite Urine Bilirubin Urine Urobilinogen Ur Leukocyte Esterase Urine Microscopic RBC Urine Microscopic WBC Ur Squamous Epith Cells Urine Bacteria Hyaline Casts Ur Culture Indicated? Vancomycin Trough 08/25/18 08/25/18 08/25/18 05:22 07:37 07:37 WBC 10.9 RBC 3.40 L Hgb 10.8 L D Hct 34.5 L MCV 101.5 H MCH 31.8 MCHC 31.3 L RDW 16.3 H Plt Count 190 MPV 10.3 Immature Gran % 0.7 Seg Neutrophils % 85.4 Lymphocytes % 9.1 Monocytes % 4.7 Eosinophils % 0.0 Basophils % 0.1 Neutrophils # 9.3 H Lymphocytes # 1.0 Monocytes # 0.5 Eosinophils # 0.0 Basophils # 0.0 ABG pH ABG pCO2 ABG pO2 ABG HCO3 ABG Total CO2 ABG O2 Saturation ABG Base Excess Respiration Rate O2 Delivery Device Inspired O2 Tidal Volume PEEP Sodium 142 Potassium 4.6 Chloride 110 H Carbon Dioxide 28 BUN 25 H Creatinine 0.75 Est GFR ( Amer) > 60 Est GFR (Non-Af Amer) > 60 BUN/Creatinine Ratio 33 H Glucose 182 H POC Glucose 187 H Calculated Osmolality 303 H Calcium 8.3 L Urine Color Urine Clarity Urine pH Ur Specific [place] Urine Protein Urine Glucose (UA) Urine Ketones Urine Blood Urine Nitrite Urine Bilirubin Urine Urobilinogen Ur Leukocyte Esterase Urine Microscopic RBC Urine Microscopic WBC Ur Squamous Epith Cells Urine Bacteria Hyaline Casts Ur Culture Indicated? Vancomycin Trough 08/25/18 08/25/18 11:13 11:17 WBC RBC Hgb Hct MCV MCH MCHC RDW Plt Count MPV Immature Gran % Seg Neutrophils % Lymphocytes % Monocytes % Eosinophils % Basophils % Neutrophils # Lymphocytes # Monocytes # Eosinophils # Basophils # ABG pH ABG pCO2 ABG pO2 ABG HCO3 ABG Total CO2 ABG O2 Saturation ABG Base Excess Respiration Rate O2 Delivery Device Inspired O2 Tidal Volume PEEP Sodium Potassium Chloride Carbon Dioxide BUN Creatinine Est GFR ( Amer) Est GFR (Non-Af Amer) BUN/Creatinine Ratio Glucose POC Glucose 169 H Calculated Osmolality Calcium Urine Color Yellow Urine Clarity Clear Urine pH 6.0 Ur Specific [place] 1.027 H Urine Protein 30 H Urine Glucose (UA) Normal Urine Ketones Negative Urine Blood Negative Urine Nitrite Negative Urine Bilirubin Negative Urine Urobilinogen Normal Ur Leukocyte Esterase Negative Urine Microscopic RBC 0-3 Urine Microscopic WBC 3-5 H Ur Squamous Epith Cells Many H Urine Bacteria None Seen Hyaline Casts Few Ur Culture Indicated? NO Vancomycin Trough - Impressions Impressions Chest X-Ray 08/25/18 07:37 IMPRESSION: Mild pulmonary vascular congestion similar to the prior study. Small to moderate right basilar atelectasis or pneumonia. Clearing of most of the opacity in the right apex. D/ / Trey Hinkle MD / Trey Hinkle MD Interpreting Provider: Trey Hinkle MD X-Ray 08/25/18 10:27 IMPRESSION: No bowel obstruction or pneumoperitoneum. D/ / Rolan Timmons MD / Rolan Timmons MD Interpreting Provider: Rolan Timmons MD - ABG Interpretation ABG results: ABG ABG pH 7.41 pH Units (7.32-7.45) 08/25/18 05:09 ABG pCO2 47 mmHg (35-45) H 08/25/18 05:09 ABG pO2 97 mmHg (85-104) 08/25/18 05:09 ABG O2 Saturation 98 % (95-98) 08/25/18 05:09 Palliative Scale - Palliative Performance Scale How ambulatory is this patient?: Totally bed bound What is patient's level of activity and evidence of disease?: Unable to do any activity, Extensive disease How much self-care assistance does patient require?: Total care How much oral intake does the patient have?: Mouth care only What is this patient's level of consciousness?: Drowsy or coma with or without confusion Palliative Performance Score: 10 % Consult Discharge Plan - Plan Referrals: NONE,PCP [Primary Care Provider] -
[2018-08-25] MEDS ORDERED: Acetaminophen 650 MG RECTAL SUPP RC PRN (14:19)
[2018-08-25] MEDS: Norepinephrine 8 MG in D5% in Water 250 ML IVC SCH (19:16)
[2018-08-25] MEDS ORDERED: Furosemide 40 MG/4 ML VIAL IVP ONE (22:11)
[2018-08-26] MEDS: Dexmedetomidine HCl 400 MCG/100 ML MLS IVC SCH ×7 (01:08→22:11)
[2018-08-26 03:11] LABS: Basophils % 0.1 %; Hematocrit 36.4 % (35.3-44.9); Hemoglobin 11.2 g/dL (11.5-15.4); Immature Granulocytes % 0.9 % (0-4); Lymphocytes # 0.7 K/mcL (0.6-4.6); Lymphocytes % 7.4 %; Mean Corpuscular HGB Conc 30.8 g/dL (31.6-35.5); Mean Corpuscular Hemoglobin 31.3 pg (28.0-33.3); Mean Corpuscular Volume 101.7 fL (83.0-100.0); Mean Platelet Volume 10.2 fL (9.4-12.4); Monocytes # 0.4 K/mcL (0.0-1.3); Monocytes % 4.7 %; Neutrophils # 8.1 K/mcL (1.6-8.9); Platelet Count 181 K/mcL (140-400); Red Blood Count 3.58 M/mcL (3.82-4.97); Red Cell Distribution Width 16.2 % (11.5-14.5); Segmented Neutrophils % 86.9 %
[2018-08-26] MEDS: Artificial Tears SOLN 15 ML BOTTLE BOTH EYES SCH ×6 (03:26→23:12)
[2018-08-26 03:32] LABS: BUN/Creatinine Ratio 41 (6-26); Blood Urea Nitrogen 33 mg/dL (6-20); Calcium 8.6 mg/dL (8.6-10.3); Carbon Dioxide 26 mEq/L (23-29); Chloride 114 mEq/L (98-107); Glucose 188 mg/dL (70-105); Osmolality,Calculated 298 (280-300); Potassium 4.3 mEq/L (3.5-5.1); Sodium 138 mEq/L (136-145); eGFR For Non-African Americans > 60 (> 60)
[2018-08-26] MEDS: Levalbuterol Neb 0.63 MG/3 ML IH SCH ×4 (04:21→22:14)
[2018-08-26 04:47] LABS: ABG Base Excess 3 mEq/L (-2 to 3); ABG HCO3 29 mEq/L (21-27); ABG Oxygen Saturation 98 % (95-98); ABG PCO2 51 mmHg (35-45); ABG PH 7.37 pH Units (7.32-7.45); ABG PO2 109 mmHg (85-104); ABG TCO2 31 mEq/L (20-26); Blood Gas PEEP 8 cm H2O; Blood Gas Respiration Rate 14; Blood Gas VT 620 cc
[2018-08-26] MEDS: *HR* Heparin 5,000 UNIT/ML VIAL SQ SCH ×2 (05:13→17:12)
[2018-08-26] MEDS: Insulin LISPRO 300 UNITS/3 ML VIAL SQ SCH ×4 (05:14→23:12)
[2018-08-26] MEDS ORDERED: Furosemide 40 MG/4 ML VIAL IVP ONE ×2 (08:17→21:00)
[2018-08-26] MEDS: Pantoprazole 40 MG VIAL IVP SCH (08:42)
[2018-08-26] MEDS: Cefepime HCl 2,000 MG in 0.9 % Sodium Chloride Mini Bag 100 ML IVPB SCH ×3 (08:42→23:13)
[2018-08-26] MEDS: Chlorhexidine Rinse 15 ML MOUTHWASH MM SCH ×2 (08:43→20:27)
[2018-08-26] MEDS: MetroNIDAZOLE 500 MG/100 ML 500 MG/100 ML BAG IVPB SCH ×3 (08:43→23:12)
[2018-08-26] MEDS: MethylPREDNISolone 40 MG/ML VIAL IVP SCH ×3 (08:43→23:13)
[2018-08-26] MEDS: Clotrimazole 1% CRM 15 GM TUBE TP SCH ×2 (08:44→20:28)
--- NOTE | 2018-08-26 11:18 | Event Note ---
Date of Encounter: 08/26/18 Time of Encounter: 11:15 Spoke with patient's primary RN. Patient now has no bowel sounds. ICU team evaluating for need of CT. No family at bedside. Palliative care will continue to follow at a distance. No needs identified today.
[2018-08-26] MEDS: FentaNYL (PF) 1,000 MCG in 0.9 % Sodium Chloride 80 ML IVC SCH ×2 (11:33→21:27)
[2018-08-26] MEDS ORDERED: Metoclopramide 10 MG/10 ML UD.LIQ GTUBE SCH (12:00)
--- NOTE | 2018-08-26 12:27 | Pulmonology Progress Note ---
Date of Encounter: 08/26/18 Time of Encounter: 08:00 Assessment and Plan (1) Pneumonia Current Visit: Yes Status: Acute To continue broad-spectrum antibiotics. with spiking temperature possible pneumonia to rule out other intrabdominal infection it is very difficult she wont fit in the CT scanner because of her abdominal girth 08/26 patient did not spike that high temperature which was spiking,will Plan on bronchoscopy with BAL tomorrow. Qualifiers: Pneumonia type: due to unspecified organism Laterality: unspecified laterality Lung location: unspecified part of lung Qualified Code(s): J18.9 - Pneumonia, unspecified organism (2) Acute exacerbation of chronic obstructive airways disease Current Visit: No Status: Acute Patient presented with acute exacerbation of COPD secondary to adenovirus pneumonia now complicated by possible bacterial pneumonia suspected MRSA pneumonia we will continue with broad-spectrum antibiotic coverage, steroids. 08/25 Patient still has wheezing nonsuppressed with adenovirus for COPD exacerbation complicated by pneumonia . Prolonged course patient has increased work due to both increased resistance and compliance.To continue the current management. 08/26 patient still has increased resistive work and patient has poor compliance because of hydrostatic pulmonary edema will need more diuresis and continue steroids and scheduled bronchodilators. (3) Acute and chronic respiratory failure Current Visit: No Status: Acute Patient has acute on chronic hypoxic hypercapnic respiratory failure secondary to COPD exacerbation due to adenovirus pneumonia possible secondary bacterial pneumonia complicated by acute on chronic diastolic heart failure. To continue d iuresis and antibiotics. Qualifiers: Respiratory failure complication: hypoxia and hypercapnia Qualified Code(s): J96.21 - Acute and chronic respiratory failure with hypoxia; J96.22 - Acute and chronic respiratory failure with hypercapnia (4) DVT prophylaxis Current Visit: Yes Status: Acute Continue the current regimen of prophylaxis. (5) Atrial fibrillation Current Visit: No Status: Chronic Rate controlled now. Qualifiers: Atrial fibrillation type: chronic Qualified Code(s): I48.2 - Chronic atrial fibrillation (6) Morbid obesity Current Visit: No Status: Chronic Patient morbid obesity is complicating the current episode of acute and chronic respiratory failure might be a difficult extubation. (7) Acute on chronic diastolic heart failure Current Visit: Yes Status: Acute Patient has acute on chronic diastolic heart failure to continue diuresis. Will need more diuretic diuresis because increased work due to poor compliance hope this compliance will improve with continued diuresis. Subjective Principal diagnosis: acute exacerbation of COPD with pneumonia Interval history: Patient did not have any acute events overnight. patient failed CPAP trial. Objective PUL Vital signs: Last Vital Signs Temp 101.2 F H 08/26/18 08:39 Pulse 96 08/26/18 12:00 Resp 14 08/26/18 12:00 BP 135/87 08/26/18 12:00 Pulse Ox 93 08/26/18 12:00 Effort: mildly labored Auscultation: bilateral: wheezes, rales Cardiovascular: irregular rhythm Gastrointestinal: hypoactive bowel sounds Integumentary: other (chronic skin changes ) Extremities: other (chronic lymphedema changes ) unable to assess due to mental status Ventilator Settings Ventilator Settings: Ventilator Settings, Last 8 Hours Ventilator Tidal Volume 620 Setting Ventilator Tidal Volume 620 Setting Ventilator Tidal Volume 620 Setting Ventilator Tidal Volume 620 Setting Ventilator Tidal Volume 620 Setting Ventilator Tidal Volume 620 Setting Ventilator Tidal Volume 620 Setting Ventilator Tidal Volume 620 Setting Ventilator Tidal Volume 620 Setting Ventilator Tidal Volume 620 Setting Ventilator Tidal Volume 620 Setting Ventilator Tidal Volume 620 Setting Ventilator Tidal Volume 620 Setting Ventilator Respiratory Rate 14 Setting Ventilator Respiratory Rate 14 Setting Ventilator Respiratory Rate 14 Setting Ventilator Respiratory Rate 14 Setting Ventilator Respiratory Rate 14 Setting Ventilator Respiratory Rate 14 Setting Ventilator Respiratory Rate 14 Setting Ventilator Respiratory Rate 14 Setting Ventilator Respiratory Rate 14 Setting Ventilator Respiratory Rate 14 Setting Ventilator Respiratory Rate 14 Setting Ventilator Respiratory Rate 14 Setting Ventilator Respiratory Rate 14 Setting Actual Respiratory Rate 14 Actual Respiratory Rate 14 Actual Respiratory Rate 16 Actual Respiratory Rate 14 Actual Respiratory Rate 16 Actual Respiratory Rate 15 Actual Respiratory Rate 17 Actual Respiratory Rate 20 Actual Respiratory Rate 14 Actual Respiratory Rate 14 Positive End Expiratory 8 Pressure Positive End Expiratory 8 Pressure Positive End Expiratory 8 Pressure Positive End Expiratory 7.2 Pressure Positive End Expiratory 8 Pressure Positive End Expiratory 8 Pressure Positive End Expiratory 8.5 Pressure Positive End Expiratory 8.0 Pressure Positive End Expiratory 8 Pressure Positive End Expiratory 8 Pressure Positive End Expiratory 8 Pressure Positive End Expiratory 8 Pressure Positive End Expiratory 8 Pressure Peak Inspiratory Airway 33 Pressure Peak Inspiratory Airway 36 Pressure Peak Inspiratory Airway 36 Pressure Peak Inspiratory Airway 39 Pressure Results - Laboratory Findings CBC and BMP: 08/26/18 03:00 08/26/18 03:00 ABG ABG pH 7.37 pH Units (7.32-7.45) 08/26/18 04:44 ABG pCO2 51 mmHg (35-45) H 08/26/18 04:44 ABG pO2 109 mmHg (85-104) H 08/26/18 04:44 ABG O2 Saturation 98 % (95-98) 08/26/18 04:44 Abnormal lab findings: Abnormal lab results RBC 3.58 M/mcL (3.82-4.97) L 08/26/18 03:00 Hgb 11.2 g/dL (11.5-15.4) L 08/26/18 03:00 MCV 101.7 fL (83.0-100.0) H 08/26/18 03:00 MCHC 30.8 g/dL (31.6-35.5) L 08/26/18 03:00 RDW 16.2 % (11.5-14.5) H 08/26/18 03:00 Band Neutrophils % 16.0 % (0-4) H 08/24/18 03:45 Metamyelocytes % 2.0 % (0) H 08/24/18 03:45 Anisocytosis 1+ (Not Present) A 08/24/18 03:45 Macrocytosis Present (Not Present) A 08/24/18 03:45 ABG pCO2 51 mmHg (35-45) H 08/26/18 04:44 ABG pO2 109 mmHg (85-104) H 08/26/18 04:44 ABG HCO3 29 mEq/L (21-27) H 08/26/18 04:44 ABG Total CO2 31 mEq/L (20-26) H 08/26/18 04:44 Chloride 114 mEq/L (98-107) H 08/26/18 03:00 BUN 33 mg/dL (6-20) H 08/26/18 03:00 BUN/Creatinine Ratio 41 (6-26) H 08/26/18 03:00 Glucose 188 mg/dL (70-105) H 08/26/18 03:00 POC Glucose 189 mg/dL (70-99) H 08/26/18 05:12 Ur Specific [place] 1.027 (1.010-1.025) H 08/25/18 11:17 Urine Protein 30 mg/dL (Neg-Trace) H 08/25/18 11:17 Urine Microscopic WBC 3-5 per hpf (0-3) H 08/25/18 11:17 Ur Squamous Epith Cells Many per lpf (None-Few) H 08/25/18 11:17 Nasal Screen MRSA (PCR) Positive (Negative) A 08/22/18 15:20 Vancomycin Trough 41 mcg/mL (5-10) H 08/24/18 19:02 Adenovirus (PCR) DETECTED (Not Detect) A 08/22/18 15:20 - Microbiology Findings Microbiology Findings: Microbiology, Last 48 Hours 08/25/18 17:30 Sputum Culture - Preliminary Trachea 08/25/18 09:01 Blood Culture - Preliminary Peripheral Venipuncture Culture is incubating and being continuously monitored for growth. Final report to follow. - Clinical Findings Intake & Output: Intake & Output 08/25/18 08/26/18 08/26/18 23:59 07:59 15:59 Intake Total 685 / 685 400 / 400 750 / 750 Output Total 970 / 970 600 / 600 250 / 250 Balance -285 / -285 -200 / -200 500 / 500 Consult Discharge Plan - Plan Referrals: NONE,PCP [Primary Care Provider] -
[2018-08-26] MEDS: Metoclopramide 10 MG/2 ML VIAL IVP SCH (17:12)
[2018-08-26] MEDS: Bisacodyl 10 MG RECTAL SUPPOSITORY RC SCH (17:13)
[2018-08-26] MEDS: Norepinephrine 8 MG in D5% in Water 250 ML IVC SCH (18:59)
[2018-08-26 20:55] LABS: BUN/Creatinine Ratio 52 (6-26); Blood Urea Nitrogen 44 mg/dL (6-20); Calcium 8.7 mg/dL (8.6-10.3); Carbon Dioxide 22 mEq/L (23-29); Chloride 112 mEq/L (98-107); Glucose 179 mg/dL (70-105); Magnesium 2.3 mg/dL (1.6-2.6); Osmolality,Calculated 316 (280-300); Potassium 4.4 mEq/L (3.5-5.1); Sodium 145 mEq/L (136-145); eGFR For Non-African Americans > 60 (> 60)
[2018-08-27] MEDS: Dexmedetomidine HCl 400 MCG/100 ML MLS IVC SCH ×7 (01:27→21:38)
[2018-08-27] MEDS: Artificial Tears SOLN 15 ML BOTTLE BOTH EYES SCH ×6 (03:16→23:07)
[2018-08-27] MEDS: Levalbuterol Neb 0.63 MG/3 ML IH SCH ×5 (03:38→23:46)
[2018-08-27 05:08] LABS: Hematocrit 36.1 % (35.3-44.9); Hemoglobin 11.2 g/dL (11.5-15.4); Immature Granulocytes % 0.6 % (0-4); Lymphocytes # 0.5 K/mcL (0.6-4.6); Lymphocytes % 5.1 %; Mean Corpuscular Hemoglobin 31.5 pg (28.0-33.3); Mean Corpuscular Volume 101.7 fL (83.0-100.0); Mean Platelet Volume 10.5 fL (9.4-12.4); Monocytes # 0.5 K/mcL (0.0-1.3); Monocytes % 5.2 %; Neutrophils # 8.4 K/mcL (1.6-8.9); Platelet Count 177 K/mcL (140-400); Red Blood Count 3.55 M/mcL (3.82-4.97); Red Cell Distribution Width 15.9 % (11.5-14.5); Segmented Neutrophils % 89.1 %
[2018-08-27] MEDS: Metoclopramide 10 MG/2 ML VIAL IVP SCH ×2 (05:12→17:36)
[2018-08-27] MEDS: Insulin LISPRO 300 UNITS/3 ML VIAL SQ SCH ×4 (05:12→23:16)
[2018-08-27] MEDS: *HR* Heparin 5,000 UNIT/ML VIAL SQ SCH ×2 (05:12→17:36)
[2018-08-27 05:29] LABS: BUN/Creatinine Ratio 55 (6-26); Blood Urea Nitrogen 47 mg/dL (6-20); Calcium 8.8 mg/dL (8.6-10.3); Carbon Dioxide 25 mEq/L (23-29); Chloride 111 mEq/L (98-107); Glucose 180 mg/dL (70-105); Osmolality,Calculated 319 (280-300); Potassium 4.2 mEq/L (3.5-5.1); Sodium 146 mEq/L (136-145); eGFR For Non-African Americans > 60 (> 60)
[2018-08-27 05:42] LABS: ABG Base Excess 2 mEq/L (-2 to 3); ABG HCO3 28 mEq/L (21-27); ABG Oxygen Saturation 96 % (95-98); ABG PCO2 47 mmHg (35-45); ABG PH 7.38 pH Units (7.32-7.45); ABG PO2 84 mmHg (85-104); ABG TCO2 30 mEq/L (20-26); Blood Gas Modality ASSIST CONTROL; Blood Gas PEEP 5 cm H2O; Blood Gas Respiration Rate 18; Blood Gas VT 450 cc
[2018-08-27] MEDS: FentaNYL (PF) 1,000 MCG in 0.9 % Sodium Chloride 80 ML IVC SCH ×2 (06:21→17:25)
[2018-08-27] MEDS: Cefepime HCl 2,000 MG in 0.9 % Sodium Chloride Mini Bag 100 ML IVPB SCH ×3 (08:56→23:08)
[2018-08-27] MEDS: Chlorhexidine Rinse 15 ML MOUTHWASH MM SCH ×2 (08:56→19:40)
[2018-08-27] MEDS: Pantoprazole 40 MG VIAL IVP SCH (08:56)
[2018-08-27] MEDS: Bisacodyl 10 MG RECTAL SUPPOSITORY RC SCH (08:57)
[2018-08-27] MEDS: MethylPREDNISolone 40 MG/ML VIAL IVP SCH ×3 (08:57→23:08)
[2018-08-27] MEDS: MetroNIDAZOLE 500 MG/100 ML 500 MG/100 ML BAG IVPB SCH ×3 (08:57→23:07)
[2018-08-27] MEDS: Furosemide 40 MG/4 ML VIAL IVP SCH ×2 (08:59→16:37)
[2018-08-27] MEDS: Clotrimazole 1% CRM 15 GM TUBE TP SCH ×2 (09:01→19:41)
--- NOTE | 2018-08-27 14:24 | Event Note ---
Date of Encounter: 08/27/18 Time of Encounter: 14:19 Was informed by nursing staff that patient's right femoral central venous catheter was a 16 cm catheter. The catheter was placed at [facility] emergency department prior to transfer to [facility] ICU. The catheter was immediately pulled.
--- NOTE | 2018-08-27 15:58 | Palliative Progress Note ---
Date of Encounter: 08/27/18 Time of Encounter: 13:00 - Assessment and plan (1) Dyspnea Current Visit: Yes Status: Acute Assessment and plan: Continues treatment for Resp failure/pneumonia with IV atb/bronchdilators/vent support. FIO2 remains at 60% with PEEP 8. Monitor. If she would be extubated later in the week, and family does not want reintubation, will likely need opioids available for air hunger/dyspnea. (2) Constipation Current Visit: Yes Status: Acute Assessment and plan: Currently with greatly diminished bowel sounds and no BM documented. On Senokot and Reglan. Monitor. Qualifiers: Constipation type: slow transit constipation Qualified Code(s): K59.01 - Slow transit constipation (3) Goals of care, counseling/discussion Current Visit: Yes Status: Acute Assessment and plan: Dr. Jensen, Dr. Quiñones, primary nurse Malika and I met with family trish merritt pt son, daughter, brother, and spouses. Meeting time was 35 minutes. They were updated on clinical status and complications of not tolerating CPAP trials, continued fluid overload, and GI issues. They understand that she is unable to be imaged by CT here at [place] r/t [facility]. Malika has been communicating with outside facilities re: their ability to image pt. Family does not means to travel long distances if she were to be transferred. Discussion also entailed her respiratory disease, fluid overload, and if patient would desire/be in agreement with tracheostomy if unable to successfully extubate. Son, Shayan, does not believe that his mother would want that, and the likely placement at subacute hospital or nursing facility. Discussed how ultimately, this would not reverse her respiratory disease. Family verbalized understanding. They are asking for a few more days of treatment, to see if she improves. Will likely have to re-meet Mon/, depending on the clinical picture at that time. Will continue to follow (4) Acute and chronic respiratory failure Current Visit: No Status: Acute Qualifiers: Respiratory failure complication: hypoxia and hypercapnia Qualified Code(s): J96.21 - Acute and chronic respiratory failure with hypoxia; J96.22 - Acute and chronic respiratory failure with hypercapnia (5) Pulmonary edema Current Visit: No Status: Acute Qualifiers: Chronicity: acute Qualified Code(s): J81.0 - Acute pulmonary edema (6) Palliative care encounter Current Visit: Yes Status: Acute - Time Spent With Patient Total time spent is greater than 50% in coordination of care (as documented) at patient's floor/unit and/or counseling patient: Greater than 35 minutes (Total time with patient face to face and meeting with family 50 min) - Subjective Interval history: Patient remains intubated and sedated, does open eyes when name called, appears anxious. Failed CPAP trial again this am r/t afib/rvr. Temp max last 24 hours 100.6. Blood pressure stable. Multiple family members have arrived. - Constitutional Vitals: Abnormal lab results RBC 3.55 M/mcL (3.82-4.97) L 08/27/18 04:30 Hgb 11.2 g/dL (11.5-15.4) L 08/27/18 04:30 MCV 101.7 fL (83.0-100.0) H 08/27/18 04:30 MCHC 31.0 g/dL (31.6-35.5) L 08/27/18 04:30 RDW 15.9 % (11.5-14.5) H 08/27/18 04:30 Band Neutrophils % 16.0 % (0-4) H 08/24/18 03:45 Metamyelocytes % 2.0 % (0) H 08/24/18 03:45 Lymphocytes # 0.5 K/mcL (0.6-4.6) L 08/27/18 04:30 Anisocytosis 1+ (Not Present) A 08/24/18 03:45 Macrocytosis Present (Not Present) A 08/24/18 03:45 ABG pCO2 47 mmHg (35-45) H 08/27/18 05:35 ABG pO2 84 mmHg (85-104) L 08/27/18 05:35 ABG HCO3 28 mEq/L (21-27) H 08/27/18 05:35 ABG Total CO2 30 mEq/L (20-26) H 08/27/18 05:35 Sodium 146 mEq/L (136-145) H 08/27/18 04:30 Chloride 111 mEq/L (98-107) H 08/27/18 04:30 BUN 47 mg/dL (6-20) H 08/27/18 04:30 BUN/Creatinine Ratio 55 (6-26) H 08/27/18 04:30 Glucose 180 mg/dL (70-105) H 08/27/18 04:30 POC Glucose 189 mg/dL (70-99) H 08/27/18 12:05 Calculated Osmolality 319 (280-300) H 08/27/18 04:30 Ur Specific [place] 1.027 (1.010-1.025) H 08/25/18 11:17 Urine Protein 30 mg/dL (Neg-Trace) H 08/25/18 11:17 Urine Microscopic WBC 3-5 per hpf (0-3) H 08/25/18 11:17 Ur Squamous Epith Cells Many per lpf (None-Few) H 08/25/18 11:17 Nasal Screen MRSA (PCR) Positive (Negative) A 08/22/18 15:20 Vancomycin Trough 16 mcg/mL (5-10) H 08/27/18 04:30 Adenovirus (PCR) DETECTED (Not Detect) A 08/22/18 15:20 General appearance: Present: morbidly obese - Respiratory Respiratory exam: Present: decreased breath sounds Additional comments: Breath sounds coarse throughout - Cardiovascular Cardiovascular exam: Present: irregular rhythm - GI/Abdominal GI/Abdominal exam: Present: diminished bowel sounds, distended, soft - Additional comments: Leigh intact - Extremities Exam Additional comments: 2+ edema bilateral lower extremities - Neurological Exam Additional comments: Awakens easily, did answer few yes/no questions, would not follow commands for me. - Skin Skin exam: Present: dry, warm Palliative Quality Palliative Quality: Screen for Code Status: Yes, Screen for Goals of Care: Yes, Screen for Pain: Yes, If Pain Regimen Started, Initiate Bowel Regimen: Yes, Screen for Nausea/Vomitting: Yes Code Status: 08/22/18 14:41 Resuscitation Status: Active [RES] Routine Comment: Resuscitation Status: Full Code - Labs CBC & Chem 7: 08/27/18 04:30 08/27/18 04:30 Labs: Laboratory Results - last 24 hr 08/26/18 08/26/18 08/26/18 18:35 20:27 23:00 WBC RBC Hgb Hct MCV MCH MCHC RDW Plt Count MPV Immature Gran % Seg Neutrophils % Lymphocytes % Monocytes % Eosinophils % Basophils % Neutrophils # Lymphocytes # Monocytes # Eosinophils # Basophils # ABG pH ABG pCO2 ABG pO2 ABG HCO3 ABG Total CO2 ABG O2 Saturation ABG Base Excess Respiration Rate O2 Delivery Device Blood Gas Modality Inspired O2 Tidal Volume PEEP Sodium 145 Potassium 4.4 Chloride 112 H Carbon Dioxide 22 L BUN 44 H Creatinine 0.84 Est GFR ( Amer) > 60 Est GFR (Non-Af Amer) > 60 BUN/Creatinine Ratio 52 H Glucose 179 H POC Glucose 185 H 167 H Calculated Osmolality 316 H Lactic Acid Calcium 8.7 Magnesium 2.3 Vancomycin Trough 08/27/18 08/27/18 08/27/18 04:30 04:30 04:30 WBC 9.4 RBC 3.55 L Hgb 11.2 L Hct 36.1 MCV 101.7 H MCH 31.5 MCHC 31.0 L RDW 15.9 H Plt Count 177 MPV 10.5 Immature Gran % 0.6 Seg Neutrophils % 89.1 Lymphocytes % 5.1 Monocytes % 5.2 Eosinophils % 0.0 Basophils % 0.0 Neutrophils # 8.4 Lymphocytes # 0.5 L Monocytes # 0.5 Eosinophils # 0.0 Basophils # 0.0 ABG pH ABG pCO2 ABG pO2 ABG HCO3 ABG Total CO2 ABG O2 Saturation ABG Base Excess Respiration Rate O2 Delivery Device Blood Gas Modality Inspired O2 Tidal Volume PEEP Sodium 146 H Potassium 4.2 Chloride 111 H Carbon Dioxide 25 BUN 47 H Creatinine 0.86 Est GFR ( Amer) > 60 Est GFR (Non-Af Amer) > 60 BUN/Creatinine Ratio 55 H Glucose 180 H POC Glucose Calculated Osmolality 319 H Lactic Acid Calcium 8.8 Magnesium Vancomycin Trough 16 H 08/27/18 08/27/18 08/27/18 05:12 05:35 11:39 WBC RBC Hgb Hct MCV MCH MCHC RDW Plt Count MPV Immature Gran % Seg Neutrophils % Lymphocytes % Monocytes % Eosinophils % Basophils % Neutrophils # Lymphocytes # Monocytes # Eosinophils # Basophils # ABG pH 7.38 ABG pCO2 47 H ABG pO2 84 L ABG HCO3 28 H ABG Total CO2 30 H ABG O2 Saturation 96 ABG Base Excess 2 Respiration Rate 18 O2 Delivery Device ET Tube Blood Gas Modality ASSIST CONTROL Inspired O2 60.0 Tidal Volume 450 PEEP 5 Sodium Potassium Chloride Carbon Dioxide BUN Creatinine Est GFR ( Amer) Est GFR (Non-Af Amer) BUN/Creatinine Ratio Glucose POC Glucose 174 H Calculated Osmolality Lactic Acid 0.8 Calcium Magnesium Vancomycin Trough 08/27/18 12:05 WBC RBC Hgb Hct MCV MCH MCHC RDW Plt Count MPV Immature Gran % Seg Neutrophils % Lymphocytes % Monocytes % Eosinophils % Basophils % Neutrophils # Lymphocytes # Monocytes # Eosinophils # Basophils # ABG pH ABG pCO2 ABG pO2 ABG HCO3 ABG Total CO2 ABG O2 Saturation ABG Base Excess Respiration Rate O2 Delivery Device Blood Gas Modality Inspired O2 Tidal Volume PEEP Sodium Potassium Chloride Carbon Dioxide BUN Creatinine Est GFR ( Amer) Est GFR (Non-Af Amer) BUN/Creatinine Ratio Glucose POC Glucose 189 H Calculated Osmolality Lactic Acid Calcium Magnesium Vancomycin Trough - Impressions Impressions Chest X-Ray 08/27/18 05:00 IMPRESSION: Mild edema with small left pleural effusion and left basilar atelectasis. D/ / 08/27/2018 07:23:33 [facility] Interpreting Provider: Jaun Smith MD - ABG Interpretation ABG results: ABG ABG pH 7.38 pH Units (7.32-7.45) 08/27/18 05:35 ABG pCO2 47 mmHg (35-45) H 08/27/18 05:35 ABG pO2 84 mmHg (85-104) L 08/27/18 05:35 ABG O2 Saturation 96 % (95-98) 08/27/18 05:35 Palliative Scale - Palliative Performance Scale How ambulatory is this patient?: Totally bed bound What is patient's level of activity and evidence of disease?: Unable to do any activity, Extensive disease How much self-care assistance does patient require?: Total care How much oral intake does the patient have?: Mouth care only What is this patient's level of consciousness?: Drowsy or coma with or without confusion Palliative Performance Score: 10 % Consult Discharge Plan - Plan Referrals: NONE,PCP [Primary Care Provider] -
--- NOTE | 2018-08-27 16:57 | Pulmonology Progress Note ---
Date of Encounter: 08/27/18 Time of Encounter: 08:00 Assessment and Plan (1) Pneumonia Current Visit: Yes Status: Acute To continue broad-spectrum antibiotics. with spiking temperature possible pneumonia to rule out other intrabdominal infection it is very difficult she wont fit in the CT scanner because of her abdominal girth 08/26 patient did not spike that high temperature which was spiking,will Plan on bronchoscopy with BAL tomorrow. 08/27 Patient is not spiking fever today with not much secretions in the endotracheal tube . Patient has this almost absent bowel sounds could not get CT abdomen pelvis because of the abdominal Try calling different hospitals only [facility] will accept the patient and family declined it. Qualifiers: Pneumonia type: due to unspecified organism Laterality: unspecified laterality Lung location: unspecified part of lung Qualified Code(s): J18.9 - Pneumonia, unspecified organism (2) Acute exacerbation of chronic obstructive airways disease Current Visit: No Status: Acute Patient presented with acute exacerbation of COPD secondary to adenovirus pneumonia now complicated by possible bacterial pneumonia suspected MRSA p [place] we will continue with broad-spectrum antibiotic coverage, steroids. 08/25 Patient still has wheezing nonsuppressed with adenovirus for COPD exacerbation complicated by pneumonia . Prolonged course patient has increased work due to both increased resistance and compliance.To continue the current management. 08/26 patient still has increased resistive work and patient has poor compliance because of hydrostatic pulmonary edema will need more diuresis and continue steroids and scheduled bronchodilators. 08/29 to continue current bronchodilators and steroids treating for pneumonia continue with diuresis patient was put on regular spontaneous breathing trial failed and I am trying Smart care Pressure support ventilation. (3) Acute and chronic respiratory failure Current Visit: No Status: Acute Patient has acute on chronic hypoxic hypercapnic respiratory failure secondary to COPD exacerbation due to adenovirus pneumonia possible secondary bacterial pneumonia complicated by acute on chronic diastolic heart failure. To continue diuresis and antibiotics. Qualifiers: Respiratory failure complication: hypoxia and hypercapnia Qualified Code(s): J96.21 - Acute and chronic respiratory failure with hypoxia; J96.22 - Acute and chronic respiratory failure with hypercapnia (4) DVT prophylaxis Current Visit: Yes Status: Acute Continue the current regimen of prophylaxis. (5) Atrial fibrillation Current Visit: No Status: Chronic Rate controlled now. Qualifiers: Atrial fibrillation type: chronic Qualified Code(s): I48.2 - Chronic atrial fibrillation (6) Morbid obesity Current Visit: No Status: Chronic Patient morbid obesity is complicating the current episode of acute and chronic respiratory failure might be a difficult extubation. (7) Acute on chronic diastolic heart failure Current Visit: Yes Status: Acute Patient has acute on chronic diastolic heart failure to continue diuresis. Will need more diuretic diuresis because increased work due to poor compliance hope this compliance will improve with continued diuresis. Subjective Principal diagnosis: acute exacerbation of COPD with pneumonia Interval history: Patient did not have any acute events overnight. patient failed CPAP trial tolerated 15 minutes , tried smart care could not tolerate with Atrial fibrillation with RVR Objective PUL Vital signs: Last Vital Signs Temp 99.2 F 08/27/18 15:20 Pulse 90 08/27/18 16:00 Resp 14 08/27/18 16:00 BP 142/81 08/27/18 16:00 Pulse Ox 93 08/27/18 16:00 General appearance: lethargic Auscultation: bilateral: diminished breath sounds, rales Cardiovascular: irregular rhythm Gastrointestinal: absent bowel sounds Integumentary: erythema unable to assess due to mental status Ventilator Settings Ventilator Settings: Ventilator Settings, Last 8 Hours Ventilator Tidal Volume 620 Setting Ventilator Tidal Volume 620 Setting Ventilator Tidal Volume 620 Setting Ventilator Tidal Volume 620 Setting Ventilator Tidal Volume 620 Setting Ventilator Tidal Volume 620 Setting Ventilator Tidal Volume 620 Setting Ventilator Tidal Volume 620 Setting Ventilator Tidal Volume 620 Setting Ventilator Tidal Volume 650 Setting Ventilator Respiratory Rate 14 Setting Ventilator Respiratory Rate 14 Setting Ventilator Respiratory Rate 14 Setting Ventilator Respiratory Rate 14 Setting Ventilator Respiratory Rate 14 Setting Ventilator Respiratory Rate 14 Setting Ventilator Respiratory Rate 14 Setting Ventilator Respiratory Rate 14 Setting Ventilator Respiratory Rate 14 Setting Ventilator Respiratory Rate 14 Setting Actual Respiratory Rate 16 Actual Respiratory Rate 16 Actual Respiratory Rate 15 Actual Respiratory Rate 14 Actual Respiratory Rate 16 Actual Respiratory Rate 16 Actual Respiratory Rate 16 Actual Respiratory Rate 17 Actual Respiratory Rate 16 Actual Respiratory Rate 20 Actual Respiratory Rate 21 Actual Respiratory Rate 15 Positive End Expiratory 8 Pressure Positive End Expiratory 8 Pressure Positive End Expiratory 8 Pressure Positive End Expiratory 8 Pressure Positive End Expiratory 8 Pressure Positive End Expiratory 8 Pressure Positive End Expiratory 8 Pressure Positive End Expiratory 8 Pressure Positive End Expiratory 8 Pressure Positive End Expiratory 8 Pressure Positive End Expiratory 8 Pressure Positive End Expiratory 8 Pressure Peak Inspiratory Airway 37 Pressure Peak Inspiratory Airway 36 Pressure Peak Inspiratory Airway 40 Pressure Peak Inspiratory Airway 36 Pressure Peak Inspiratory Airway 31 Pressure Peak Inspiratory Airway 32 Pressure Peak Inspiratory Airway 20 Pressure Peak Inspiratory Airway 33 Pressure Peak Inspiratory Airway 19 Pressure Peak Inspiratory Airway 20 Pressure Peak Inspiratory Airway 21 Pressure Peak Inspiratory Airway 33 Pressure Results - Laboratory Findings CBC and BMP: 08/27/18 04:30 08/27/18 04:30 ABG ABG pH 7.38 pH Units (7.32-7.45) 08/27/18 05:35 ABG pCO2 47 mmHg (35-45) H 08/27/18 05:35 ABG pO2 84 mmHg (85-104) L 08/27/18 05:35 ABG O2 Saturation 96 % (95-98) 08/27/18 05:35 Abnormal lab findings: Abnormal lab results RBC 3.55 M/mcL (3.82-4.97) L 08/27/18 04:30 Hgb 11.2 g/dL (11.5-15.4) L 08/27/18 04:30 MCV 101.7 fL (83.0-100.0) H 08/27/18 04:30 MCHC 31.0 g/dL (31.6-35.5) L 08/27/18 04:30 RDW 15.9 % (11.5-14.5) H 08/27/18 04:30 Band Neutrophils % 16.0 % (0-4) H 08/24/18 03:45 Metamyelocytes % 2.0 % (0) H 08/24/18 03:45 Lymphocytes # 0.5 K/mcL (0.6-4.6) L 08/27/18 04:30 Anisocytosis 1+ (Not Present) A 08/24/18 03:45 Macrocytosis Present (Not Present) A 08/24/18 03:45 ABG pCO2 47 mmHg (35-45) H 08/27/18 05:35 ABG pO2 84 mmHg (85-104) L 08/27/18 05:35 ABG HCO3 28 mEq/L (21-27) H 08/27/18 05:35 ABG Total CO2 30 mEq/L (20-26) H 08/27/18 05:35 Sodium 146 mEq/L (136-145) H 08/27/18 04:30 Chloride 111 mEq/L (98-107) H 08/27/18 04:30 BUN 47 mg/dL (6-20) H 08/27/18 04:30 BUN/Creatinine Ratio 55 (6-26) H 08/27/18 04:30 Glucose 180 mg/dL (70-105) H 08/27/18 04:30 POC Glucose 189 mg/dL (70-99) H 08/27/18 12:05 Calculated Osmolality 319 (280-300) H 08/27/18 04:30 Ur Specific Stamps 1.027 (1.010-1.025) H 08/25/18 11:17 Urine Protein 30 mg/dL (Neg-Trace) H 08/25/18 11:17 Urine Microscopic WBC 3-5 per hpf (0-3) H 08/25/18 11:17 Ur Squamous Epith Cells Many per lpf (None-Few) H 08/25/18 11:17 Nasal Screen MRSA (PCR) Positive (Negative) A 08/22/18 15:20 Vancomycin Trough 16 mcg/mL (5-10) H 08/27/18 04:30 Adenovirus (PCR) DETECTED (Not Detect) A 08/22/18 15:20 - Microbiology Findings Microbiology Findings: Microbiology, Last 48 Hours 08/27/18 11:39 Blood Culture - Preliminary Peripheral Venipuncture Culture is incubating and being continuously monitored for growth. Final report to follow. 08/25/18 17:30 Sputum Culture - Preliminary Trachea - Clinical Findings Intake & Output: Intake & Output 08/27/18 08/27/18 08/27/18 07:59 15:59 23:59 Intake Total 660 / 660 520 / 520 Output Total 1600 / 1600 1200 / 1200 Balance -940 / -940 -680 / -680 Weight 173.7 kg Consult Discharge Plan - Plan Referrals: NONE,PCP [Primary Care Provider] - Critical Care Time Critical Care Time: Yes Total Critical Care Time: 32 Attestation: I spent 32 minutes of Critical Care time with this patient. It involved decision making of high complexity to assess, manipulate, and support vital organ system failure and/or to prevent further life threatening deterioration of the patient's condition. The time involved in the performance of separately reportable procedures was not counted toward critical care time.
[2018-08-27] MEDS: Norepinephrine 8 MG in D5% in Water 250 ML IVC SCH (19:34)
[2018-08-28] MEDS: Dexmedetomidine HCl 400 MCG/100 ML MLS IVC SCH ×7 (00:32→22:24)
[2018-08-28] MEDS: Artificial Tears SOLN 15 ML BOTTLE BOTH EYES SCH ×6 (03:05→23:17)
[2018-08-28] MEDS: Levalbuterol Neb 0.63 MG/3 ML IH SCH ×6 (03:29→23:10)
[2018-08-28] MEDS: FentaNYL (PF) 1,000 MCG in 0.9 % Sodium Chloride 80 ML IVC SCH ×2 (04:02→12:35)
[2018-08-28 04:46] LABS: ABG Base Excess 4 mEq/L (-2 to 3); ABG HCO3 30 mEq/L (21-27); ABG Oxygen Saturation 92 % (95-98); ABG PCO2 51 mmHg (35-45); ABG PH 7.37 pH Units (7.32-7.45); ABG PO2 66 mmHg (85-104); ABG TCO2 32 mEq/L (20-26); Blood Gas Modality PRVC; Blood Gas PEEP 8 cm H2O; Blood Gas Respiration Rate 14; Blood Gas VT 620 cc
[2018-08-28 05:00] LABS: Hematocrit 36.6 % (35.3-44.9); Hemoglobin 11.3 g/dL (11.5-15.4); Lymphocytes # 0.3 K/mcL (0.6-4.6); Lymphocytes % 2.3 %; Mean Corpuscular HGB Conc 30.9 g/dL (31.6-35.5); Mean Corpuscular Hemoglobin 31.7 pg (28.0-33.3); Mean Corpuscular Volume 102.5 fL (83.0-100.0); Mean Platelet Volume 10.2 fL (9.4-12.4); Monocytes # 0.6 K/mcL (0.0-1.3); Monocytes % 4.5 %; Neutrophils # 11.2 K/mcL (1.6-8.9); Platelet Count 177 K/mcL (140-400); Red Blood Count 3.57 M/mcL (3.82-4.97); Red Cell Distribution Width 15.5 % (11.5-14.5); Segmented Neutrophils % 92.2 %
[2018-08-28 05:20] LABS: BUN/Creatinine Ratio 61 (6-26); Blood Urea Nitrogen 46 mg/dL (6-20); Calcium 8.8 mg/dL (8.6-10.3); Carbon Dioxide 28 mEq/L (23-29); Chloride 112 mEq/L (98-107); Glucose 241 mg/dL (70-105); Osmolality,Calculated 324 (280-300); Sodium 147 mEq/L (136-145); eGFR For Non-African Americans > 60 (> 60)
[2018-08-28] MEDS: Metoclopramide 10 MG/2 ML VIAL IVP SCH ×4 (06:11→23:17)
[2018-08-28] MEDS: *HR* Heparin 5,000 UNIT/ML VIAL SQ SCH ×2 (06:11→17:56)
[2018-08-28] MEDS: Insulin LISPRO 300 UNITS/3 ML VIAL SQ SCH ×4 (06:13→23:18)
[2018-08-28] MEDS: Bisacodyl 10 MG RECTAL SUPPOSITORY RC SCH (08:43)
[2018-08-28] MEDS: Clotrimazole 1% CRM 15 GM TUBE TP SCH ×2 (08:43→19:24)
[2018-08-28] MEDS: MetroNIDAZOLE 500 MG/100 ML 500 MG/100 ML BAG IVPB SCH ×3 (08:43→23:16)
[2018-08-28] MEDS: Furosemide 40 MG/4 ML VIAL IVP SCH ×2 (08:48→16:08)
[2018-08-28] MEDS: Chlorhexidine Rinse 15 ML MOUTHWASH MM SCH ×2 (08:48→19:23)
[2018-08-28] MEDS: Pantoprazole 40 MG VIAL IVP SCH (08:48)
[2018-08-28] MEDS: MethylPREDNISolone 40 MG/ML VIAL IVP SCH ×2 (08:48→17:42)
[2018-08-28] MEDS: Cefepime HCl 2,000 MG in 0.9 % Sodium Chloride Mini Bag 100 ML IVPB SCH ×3 (08:49→23:17)
[2018-08-28 16:45] LABS: INR 1.4; Prothrombin Time 16.1 Seconds (9.4-12.1)
[2018-08-28 16:47] LABS: Activated Partial Thrombo Time 22.6 Seconds (26.0-36.0)
[2018-08-28] MEDS: Norepinephrine 8 MG in D5% in Water 250 ML IVC SCH (17:57)
--- NOTE | 2018-08-28 18:45 | Pulmonology Progress Note ---
Date of Encounter: 08/28/18 Time of Encounter: 08:00 Assessment and Plan (1) Pneumonia Current Visit: Yes Status: Acute To continue broad-spectrum antibiotics. with spiking temperature possible pneumonia to rule out other intrabdominal infection it is very difficult she wont fit in the CT scanner because of her abdominal girth 08/26 patient did not spike that high temperature which was spiking,will Plan on bronchoscopy with BAL tomorrow. 08/27 Patient is not spiking fever today with not much secretions in the endotracheal tube . Patient has this almost absent bowel sounds could not get CT abdomen pelvis because of the abdominal Try calling different hospitals only [facility] will accept the patient and family declined it. 08/28 plan for bronchoscopy today. She is having increased oxygen requirements no spike of fever. We will hold off bronchoscopy through endotracheal tube not much secretions Qualifiers: Pneumonia type: due to unspecified organism Laterality: unspecified la terality Lung location: unspecified part of lung Qualified Code(s): J18.9 - Pneumonia, unspecified organism (2) Acute exacerbation of chronic obstructive airways disease Current Visit: No Status: Acute Patient presented with acute exacerbation of COPD secondary to adenovirus pneumonia now complicated by possible bacterial pneumonia suspected MRSA pneumonia we will continue with broad-spectrum antibiotic coverage, steroids. 08/25 Patient still has wheezing nonsuppressed with adenovirus for COPD exacerbation complicated by pneumonia . Prolonged course patient has increased work due to both increased resistance and compliance.To continue the current management. 08/26 patient still has increased resistive work and patient has poor compliance because of hydrostatic pulmonary edema will need more diuresis and continue steroids and scheduled bronchodilators. 08/27 to continue current bronchodilators and steroids treating for pneumonia continue with diuresis patient was put on regular spontaneous breathing trial failed and I am trying Smart care Pressure support ventilation. 08/28 continue bronchodilators to reduce the dose of steroids to continue diuresis. As tolerated try spontaneous breathing trial patient did better than previous days. Patient also developing critical illness myopathy. It also contributing to her feeling of CPAP trial (3) Acute and chronic respiratory failure Current Visit: No Status: Acute Patient has acute on chronic hypoxic hypercapnic respiratory failure secondary to COPD exacerbation due to adenovirus pneumonia possible secondary bacterial pneumonia complicated by acute on chronic diastolic heart failure. To continue diuresis and antibiotics. 08/28 to continue aggressive diuresis, antibiotics and steroids patient respiratory muscle weakness also contributing to difficulty liberation from the ventilator. Need to keep electrolytes within normal limits at his potassium, magnesium and phosphorus. Qualifiers: Respiratory failure complication: hypoxia and hypercapnia Qualified Code(s): J96.21 - Acute and chronic respiratory failure with hypoxia; J96.22 - Acute and chronic respiratory failure with hypercapnia (4) DVT prophylaxis Current Visit: Yes Status: Acute Continue the current regimen of prophylaxis. (5) Atrial fibrillation Current Visit: No Status: Chronic Rate controlled now.. Will increase the dose of the drip when tried for CPAP trial. Will be a challenge to change to by mouth medications then has difficulty in gut absorption Qualifiers: Atrial fibrillation type: chronic Qualified Code(s): I48.2 - Chronic atrial fibrillation (6) Morbid obesity Current Visit: No Status: Chronic Patient morbid obesity is complicating the current episode of acute and chronic respiratory failure might be a difficult extubation. (7) Acute on chronic diastolic heart failure Current Visit: Yes Status: Acute Patient has acute on chronic diastolic heart failure to continue diuresis. Will need more diuretic diuresis because increased work due to poor compliance hope this compliance will improve with continued diuresis. 08/28 to continue diuresis. As tolerated. Subjective Principal diagnosis: acute exacerbation of COPD with pneumonia Interval history: Patient did not have any acute events overnight. patient failed CPAP trial tolerated 15 minutes , tried smart care could not tolerate with Atrial fibrillation with RVR 08/28 patient did not have any acute events overnight patient was diuresed tried smart care today patient tolerated initially and her work of breathing incre ased. Objective PUL Vital signs: Last Vital Signs Temp 100.2 F H 08/28/18 15:41 Pulse 14 08/28/18 18:00 Resp 14 08/28/18 18:00 BP 116/75 08/28/18 18:00 Pulse Ox 97 08/28/18 18:00 Auscultation: bilateral: diminished breath sounds (Basilar diminished breath sounds), rales (Scattered rales) Cardiovascular: irregular rhythm Gastrointestinal: absent bowel sounds, soft Extremities: no edema unable to assess due to mental status Ventilator Settings Ventilator Settings: Ventilator Settings, Last 8 Hours Ventilator Tidal Volume 620 Setting Ventilator Tidal Volume 620 Setting Ventilator Tidal Volume 620 Setting Ventilator Tidal Volume 620 Setting Ventilator Tidal Volume 620 Setting Ventilator Tidal Volume 620 Setting Ventilator Tidal Volume 620 Setting Ventilator Tidal Volume 620 Setting Ventilator Tidal Volume 620 Setting Ventilator Tidal Volume 620 Setting Ventilator Tidal Volume 620 Setting Ventilator Tidal Volume 620 Setting Ventilator Tidal Volume 620 Setting Ventilator Respiratory Rate 14 Setting Ventilator Respiratory Rate 14 Setting Ventilator Respiratory Rate 14 Setting Ventilator Respiratory Rate 14 Setting Ventilator Respiratory Rate 14 Setting Ventilator Respiratory Rate 14 Setting Ventilator Respiratory Rate 14 Setting Ventilator Respiratory Rate 14 Setting Ventilator Respiratory Rate 14 Setting Ventilator Respiratory Rate 14 Setting Ventilator Respiratory Rate 14 Setting Ventilator Respiratory Rate 14 Setting Ventilator Respiratory Rate 14 Setting Actual Respiratory Rate 14 Actual Respiratory Rate 14 Actual Respiratory Rate 14 Actual Respiratory Rate 14 Actual Respiratory Rate 14 Actual Respiratory Rate 14 Actual Respiratory Rate 14 Actual Respiratory Rate 14 Actual Respiratory Rate 14 Actual Respiratory Rate 14 Actual Respiratory Rate 16 Actual Respiratory Rate 14 Actual Respiratory Rate 14 Positive End Expiratory 8 Pressure Positive End Expiratory 8 Pressure Positive End Expiratory 8 Pressure Positive End Expiratory 8 Pressure Positive End Expiratory 8 Pressure Positive End Expiratory 8 Pressure Positive End Expiratory 8 Pressure Positive End Expiratory 8 Pressure Positive End Expiratory 8 Pressure Positive End Expiratory 8 Pressure Positive End Expiratory 8 Pressure Positive End Expiratory 8 Pressure Positive End Expiratory 8 Pressure Peak Inspiratory Airway 20 Pressure Peak Inspiratory Airway 37 Pressure Peak Inspiratory Airway 20 Pressure Peak Inspiratory Airway 20 Pressure Peak Inspiratory Airway 32 Pressure Peak Inspiratory Airway 20 Pressure Peak Inspiratory Airway 20 Pressure Peak Inspiratory Airway 30 Pressure Peak Inspiratory Airway 20 Pressure Peak Inspiratory Airway 20 Pressure Peak Inspiratory Airway 40 Pressure Peak Inspiratory Airway 20 Pressure Peak Inspiratory Airway 20 Pressure Results - Laboratory Findings CBC and BMP: 08/28/18 04:45 08/28/18 04:45 ABG ABG pH 7.37 pH Units (7.32-7.45) 08/28/18 04:42 ABG pCO2 51 mmHg (35-45) H 08/28/18 04:42 ABG pO2 66 mmHg (85-104) L 08/28/18 04:42 ABG O2 Saturation 92 % (95-98) L 08/28/18 04:42 PT/INR, D-dimer PT 16.1 Seconds (9.4-12.1) H 08/28/18 16:20 Abnormal lab findings: Abnormal lab results WBC 12.2 K/mcL (4.3-11.1) H 08/28/18 04:45 RBC 3.57 M/mcL (3.82-4.97) L 08/28/18 04:45 Hgb 11.3 g/dL (11.5-15.4) L 08/28/18 04:45 MCV 102.5 fL (83.0-100.0) H 08/28/18 04:45 MCHC 30.9 g/dL (31.6-35.5) L 08/28/18 04:45 RDW 15.5 % (11.5-14.5) H 08/28/18 04:45 Band Neutrophils % 16.0 % (0-4) H 08/24/18 03:45 Metamyelocytes % 2.0 % (0) H 08/24/18 03:45 Neutrophils # 11.2 K/mcL (1.6-8.9) H 08/28/18 04:45 Lymphocytes # 0.3 K/mcL (0.6-4.6) L 08/28/18 04:45 Anisocytosis 1+ (Not Present) A 08/24/18 03:45 Macrocytosis Present (Not Present) A 08/24/18 03:45 PT 16.1 Seconds (9.4-12.1) H 08/28/18 16:20 APTT 22.6 Seconds (26.0-36.0) L 08/28/18 16:20 ABG pCO2 51 mmHg (35-45) H 08/28/18 04:42 ABG pO2 66 mmHg (85-104) L 08/28/18 04:42 ABG HCO3 30 mEq/L (21-27) H 08/28/18 04:42 ABG Total CO2 32 mEq/L (20-26) H 08/28/18 04:42 ABG O2 Saturation 92 % (95-98) L 08/28/18 04:42 ABG Base Excess 4 mEq/L (-2 to 3) H 08/28/18 04:42 Sodium 147 mEq/L (136-145) H 08/28/18 04:45 Chloride 112 mEq/L (98-107) H 08/28/18 04:45 BUN 46 mg/dL (6-20) H 08/28/18 04:45 BUN/Creatinine Ratio 61 (6-26) H 08/28/18 04:45 Glucose 241 mg/dL (70-105) H 08/28/18 04:45 POC Glucose 219 mg/dL (70-99) H 08/28/18 17:38 Calculated Osmolality 324 (280-300) H 08/28/18 04:45 Ur Specific [place] 1.027 (1.010-1.025) H 08/25/18 11:17 Urine Protein 30 mg/dL (Neg-Trace) H 08/25/18 11:17 Urine Microscopic WBC 3-5 per hpf (0-3) H 08/25/18 11:17 Ur Squamous Epith Cells Many per lpf (None-Few) H 08/25/18 11:17 Nasal Screen MRSA (PCR) Positive (Negative) A 08/22/18 15:20 Vancomycin Trough 20 mcg/mL (5-10) H 08/28/18 04:45 Adenovirus (PCR) DETECTED (Not Detect) A 08/22/18 15:20 - Microbiology Findings Microbiology Findings: Microbiology, Last 48 Hours 08/27/18 11:39 Blood Culture - Preliminary Peripheral Venipuncture Culture is incubating and being continuously monitored for growth. Final report to follow. 08/25/18 17:30 Sputum Culture - Final Trachea Hemalatha albicans - Clinical Findings Intake & Output: Intake & Output 08/28/18 08/28/18 08/28/18 07:59 15:59 23:59 Intake Total 725 / 725 625 / 625 200 / 200 Output Total 500 / 500 1700 / 1700 Balance 225 / 225 -1075 / -1075 200 / 200 Weight 172.7 kg Consult Discharge Plan - Plan Referrals: NONE,PCP [Primary Care Provider] -
[2018-08-29] MEDS: FentaNYL (PF) 1,000 MCG in 0.9 % Sodium Chloride 80 ML IVC SCH ×3 (00:10→15:10)
[2018-08-29] MEDS: Dexmedetomidine HCl 400 MCG/100 ML MLS IVC SCH ×7 (01:40→22:58)
[2018-08-29] MEDS: Levalbuterol Neb 0.63 MG/3 ML IH SCH ×6 (03:15→23:56)
[2018-08-29] MEDS: Artificial Tears SOLN 15 ML BOTTLE BOTH EYES SCH ×6 (03:20→23:04)
[2018-08-29 03:45] LABS: Basophils % 0.1 %; Hematocrit 36.9 % (35.3-44.9); Hemoglobin 11.2 g/dL (11.5-15.4); Immature Granulocytes % 1.3 % (0-4); Lymphocytes # 0.3 K/mcL (0.6-4.6); Lymphocytes % 1.8 %; Mean Corpuscular HGB Conc 30.4 g/dL (31.6-35.5); Mean Corpuscular Hemoglobin 31.5 pg (28.0-33.3); Mean Corpuscular Volume 103.9 fL (83.0-100.0); Mean Platelet Volume 10.4 fL (9.4-12.4); Monocytes # 0.6 K/mcL (0.0-1.3); Monocytes % 4.3 %; Nucleated Red Blood Cells 0.1 /100 WBC (0); Platelet Count 188 K/mcL (140-400); Red Blood Count 3.55 M/mcL (3.82-4.97); Red Cell Distribution Width 15.5 % (11.5-14.5); Segmented Neutrophils % 92.5 %
[2018-08-29 04:05] LABS: BUN/Creatinine Ratio 66 (6-26); Blood Urea Nitrogen 40 mg/dL (6-20); Carbon Dioxide 27 mEq/L (23-29); Chloride 116 mEq/L (98-107); Glucose 267 mg/dL (70-105); Osmolality,Calculated 331 (280-300); Potassium 3.6 mEq/L (3.5-5.1); Sodium 151 mEq/L (136-145); eGFR For Non-African Americans > 60 (> 60)
[2018-08-29 04:14] LABS: ABG Base Excess 6 mEq/L (-2 to 3); ABG HCO3 33 mEq/L (21-27); ABG Oxygen Saturation 94 % (95-98); ABG PCO2 62 mmHg (35-45); ABG PH 7.34 pH Units (7.32-7.45); ABG PO2 77 mmHg (85-104); ABG TCO2 35 mEq/L (20-26); Blood Gas PEEP 8 cm H2O; Blood Gas Respiration Rate 14; Blood Gas VT 620 cc
[2018-08-29] MEDS: Insulin LISPRO 300 UNITS/3 ML VIAL SQ SCH ×5 (05:32→23:14)
[2018-08-29] MEDS: MethylPREDNISolone 40 MG/ML VIAL IVP SCH ×2 (05:33→17:23)
[2018-08-29] MEDS: Metoclopramide 10 MG/2 ML VIAL IVP SCH ×4 (05:33→23:09)
[2018-08-29] MEDS: *HR* Heparin 5,000 UNIT/ML VIAL SQ SCH ×3 (05:34→20:45)
--- NOTE | 2018-08-29 08:06 | Pulmonology Progress Note ---
<MoonKirby W - Last Filed: 08/29/18 09:14> Date of Encounter: 08/29/18 Objective PUL Vital signs: Last Vital Signs Temp 99.3 F 08/29/18 07:55 Pulse 122 08/29/18 08:00 Resp 26 08/29/18 08:00 BP 127/81 08/29/18 08:00 Pulse Ox 95 08/29/18 08:00 Ventilator Settings Ventilator Settings: Ventilator Settings, Last 8 Hours Ventilator Tidal Volume 550 Setting Ventilator Tidal Volume 550 Setting Ventilator Tidal Volume 550 Setting Ventilator Tidal Volume 620 Setting Ventilator Tidal Volume 620 Setting Ventilator Tidal Volume 620 Setting Ventilator Tidal Volume 620 Setting Ventilator Tidal Volume 620 Setting Ventilator Tidal Volume 620 Setting Ventilator Tidal Volume 620 Setting Ventilator Tidal Volume 620 Setting Ventilator Tidal Volume 620 Setting Ventilator Respiratory Rate 14 Setting Ventilator Respiratory Rate 14 Setting Ventilator Respiratory Rate 14 Setting Ventilator Respiratory Rate 14 Setting Ventilator Respiratory Rate 14 Setting Ventilator Respiratory Rate 14 Setting Ventilator Respiratory Rate 14 Setting Ventilator Respiratory Rate 14 Setting Ventilator Respiratory Rate 14 Setting Ventilator Respiratory Rate 14 Setting Ventilator Respiratory Rate 14 Setting Actual Respiratory Rate 14 Actual Respiratory Rate 14 Actual Respiratory Rate 14 Actual Respiratory Rate 14 Actual Respiratory Rate 14 Actual Respiratory Rate 14 Actual Respiratory Rate 14 Actual Respiratory Rate 14 Actual Respiratory Rate 16 Actual Respiratory Rate 16 Positive End Expiratory 8 Pressure Positive End Expiratory 8 Pressure Positive End Expiratory 8 Pressure Positive End Expiratory 8 Pressure Positive End Expiratory 8 Pressure Positive End Expiratory 8 Pressure Positive End Expiratory 8 Pressure Positive End Expiratory 8 Pressure Positive End Expiratory 8 Pressure Positive End Expiratory 8 Pressure Positive End Expiratory 8 Pressure Peak Inspiratory Airway 31 Pressure Peak Inspiratory Airway 31 Pressure Peak Inspiratory Airway 31 Pressure Peak Inspiratory Airway 31 Pressure Peak Inspiratory Airway 38 Pressure Peak Inspiratory Airway 34 Pressure Peak Inspiratory Airway 34 Pressure Peak Inspiratory Airway 35 Pressure Peak Inspiratory Airway 36 Pressure Peak Inspiratory Airway 32 Pressure Results - Laboratory Findings CBC and BMP: 08/29/18 03:30 08/29/18 03:30 ABG ABG pH 7.34 pH Units (7.32-7.45) 08/29/18 04:11 ABG pCO2 62 mmHg (35-45) H 08/29/18 04:11 ABG pO2 77 mmHg (85-104) L 08/29/18 04:11 ABG O2 Saturation 94 % (95-98) L 08/29/18 04:11 PT/INR, D-dimer PT 16.1 Seconds (9.4-12.1) H 08/28/18 16:20 Abnormal lab findings: Abnormal lab results WBC 14.1 K/mcL (4.3-11.1) H 08/29/18 03:30 RBC 3.55 M/mcL (3.82-4.97) L 08/29/18 03:30 Hgb 11.2 g/dL (11.5-15.4) L 08/29/18 03:30 MCV 103.9 fL (83.0-100.0) H 08/29/18 03:30 MCHC 30.4 g/dL (31.6-35.5) L 08/29/18 03:30 RDW 15.5 % (11.5-14.5) H 08/29/18 03:30 Band Neutrophils % 16.0 % (0-4) H 08/24/18 03:45 Metamyelocytes % 2.0 % (0) H 08/24/18 03:45 Neutrophils # 13.0 K/mcL (1.6-8.9) H 08/29/18 03:30 Lymphocytes # 0.3 K/mcL (0.6-4.6) L 08/29/18 03:30 Nucleated RBCs/100 WBC 0.1 /100 WBC (0) H 08/29/18 03:30 Anisocytosis 1+ (Not Present) A 08/24/18 03:45 Macrocytosis Present (Not Present) A 08/24/18 03:45 PT 16.1 Seconds (9.4-12.1) H 08/28/18 16:20 APTT 22.6 Seconds (26.0-36.0) L 08/28/18 16:20 ABG pCO2 62 mmHg (35-45) H 08/29/18 04:11 ABG pO2 77 mmHg (85-104) L 08/29/18 04:11 ABG HCO3 33 mEq/L (21-27) H 08/29/18 04:11 ABG Total CO2 35 mEq/L (20-26) H 08/29/18 04:11 ABG O2 Saturation 94 % (95-98) L 08/29/18 04:11 ABG Base Excess 6 mEq/L (-2 to 3) H 08/29/18 04:11 Sodium 151 mEq/L (136-145) H 08/29/18 03:30 Chloride 116 mEq/L (98-107) H 08/29/18 03:30 BUN 40 mg/dL (6-20) H 08/29/18 03:30 BUN/Creatinine Ratio 66 (6-26) H 08/29/18 03:30 Glucose 267 mg/dL (70-105) H 08/29/18 03:30 POC Glucose 254 mg/dL (70-99) H 08/28/18 23:14 Calculated Osmolality 331 (280-300) H 08/29/18 03:30 Calcium 8.0 mg/dL (8.6-10.3) L 08/29/18 03:30 Ur Specific [place] 1.027 (1.010-1.025) H 08/25/18 11:17 Urine Protein 30 mg/dL (Neg-Trace) H 08/25/18 11:17 Urine Microscopic WBC 3-5 per hpf (0-3) H 08/25/18 11:17 Ur Squamous Epith Cells Many per lpf (None-Few) H 08/25/18 11:17 Nasal Screen MRSA (PCR) Positive (Negative) A 08/22/18 15:20 Vancomycin Trough 20 mcg/mL (5-10) H 08/28/18 04:45 Adenovirus (PCR) DETECTED (Not Detect) A 08/22/18 15:20 - Microbiology Findings Microbiology Findings: Microbiology, Last 48 Hours 08/27/18 11:39 Blood Culture - Preliminary Peripheral Venipuncture Culture is incubating and being continuously monitored for growth. Final report to follow. 08/25/18 17:30 Sputum Culture - Final Trachea Hemalatha albicans - Clinical Findings Intake & Output: Intake & Output 08/28/18 08/29/18 08/29/18 23:59 07:59 15:59 Intake Total 750 / 750 525 / 525 300 / 300 Output Total 1450 / 1450 375 / 375 Balance -700 / -700 150 / 150 300 / 300 Weight 172.4 kg Consult Discharge Plan - Plan Referrals: NONE,PCP [Primary Care Provider] - - Attending Attestation I examined this patient and my medical decision-making was reviewed with the Resident Physician. I agree with the documented findings, disposition and treatment plan as described except to the extent set forth below. We independently had [id number] contact with the patient I spent 32min of Critical Care time with this patient. It involved decision making of high complexity to assess, manipulate, and support vital organ system failure and/or to prevent further life threatening deterioration of the patient's condition. The time involved in the performance of separately reportable procedures was not counted toward critical care time. Patient seen and examined at bedside Labs, radiology, chart personally reviewed. Management was reviewed during multidisciplinary critical care rounds. 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: Increasing agitation although patient able to follow commands and cooperate to some degree with examination today while on vent unfortunately we will have to increase sedation to improve the ventilator dyssynchrony as well as tachycardia Pulm: Acute on chronic hypoxic hypercapnic respiratory failure secondary to his pneumonia and CHF acceptable gas exchange today but patient remains on high tidal volume this is an part because of her super morbid obesity and atelectasis however we will decrease the amount of tidal volume to get closer to levels that would be required for extubation permissive hypercarbia for now otherwise she has acceptable oxygenation. We will continue diuresis as tolerated by kidney function. Continue treatment for COPD exacerbation. She is not a candidate for spontaneous breathing trial today because of agitation and tachycardia however we will reassess daily Cards: Atrial fibrillation work with RVR on diltiazem acceptable blood pressure heart rate remains persistently elevated but generally at goal < 120 GI: GI prophylaxis given while on vent Nutrition: Patient has ileus unfortunately she is not a candidate for abdominal CT here but bowel sounds are hypoactive and abdomen is otherwise soft there is no grimacing to deep palpation. We will try to decrease narcotics work on balancing electrolytes and continue bowel regimen will also try to restart trickle enteral nutrition Renal: Worsening hypernatremia start free water through GI. UOP Monitored, Cont to Trend sCr and monitor Electrolytes. We will continue to trend the creatinine and sodium at this point in order to liberate from that I think will need more aggressive diuresis and we will have to monitor the sodium very closely ID: She is been treated with broad-spectrum antibiotics for pneumonia unfortunately white count continues to trend up plan to reculture and we will switch antibiotics to have more anaerobic lung penetration Heme/Onc: DVT prophylaxis given; platelets and hemoglobin are stable Endo: Glucose Monitored she remains hyperglycemic we will increase basal bolus dosing of insulin Integ/MSK: Skin Care per routine ICU Nursing Protocol to prevent ulcers. Lines: All lines examined without evidence of infection : Dispo: Remain in ICU for critical illness CODE: Full code family updated including her son Shayan <Rei Mariano - Last Filed: 08/29/18 12:15> Date of Encounter: 08/29/18 Time of Encounter: 08:06 Assessment and Plan (1) Acute and chronic respiratory failure Current Visit: Yes Status: Acute Patient has acute on chronic respiratory failure likely secondary to pneumonia and acute exacerbation of the patient's COPD. Patient is currently on the ventilator and sedated. Patient did become more agitated this morning and required propofol. Patient is currently on Flagyl, vancomycin and cefepime for antibiotic regimen. Patient's most recent ABG shows a pH of 7.34, PCO2 62, PO2 77, bicarbonate 33, total CO2 of 35. Ventilator settings was DC/AC with a tidal volume of 550, respiratory rate of 14, PEEP of 8 and FiO2 of 50%. Qualifiers: Respiratory failure complication: hypoxia and hypercapnia Qualified Code(s): J96.21 - Acute and chronic respiratory failure with hypoxia; J96.22 - Acute and chronic respiratory failure with hypercapnia (2) Acute exacerbation of chronic obstructive airways disease Current Visit: Yes Status: Acute Patient has a COPD exacerbation likely secondary to patient's underlying pneumonia. Patient will receive bronchodilators and steroids. Patient is on antibiotics for the underlying pneumonia. Patient was unable to tolerate CPAP trial yesterday. We will continue to monitor the patient's transfer status for potential for weaning of sedation, decreased ventilator settings and possible extubation. (3) Acute on chronic diastolic heart failure Current Visit: Yes Status: Acute Patient is acute on chronic diastolic heart failure. We will continue diuresis as tolerated. (4) Pneumonia Current Visit: Yes Status: Acute Patient does have evidence of pneumonia on chest x-ray. It does appear that it has mildly worsened on the right. Patient is currently on vancomycin, Flagyl and cefepime. We will continue to monitor the patient's respiratory status and de-escalate the antibiotics as appropriate. Qualifiers: Pneumonia type: due to unspecified organism Laterality: unspecified laterality Lung location: unspecified part of lung Qualified Code(s): J18.9 - Pneumonia, unspecified organism (5) Hypernatremia Current Visit: Yes Status: Acute Patient had a hypernatremia of 151. Patient is a free water deficit of 3.6 L to correct the patient down to 145. Patient will be given 300 mL of free water every 6 hours. (6) Atrial fibrillation Current Visit: No Status: Chronic Patient has a history of atrial fibrillation. The patient is currently receiving a Cardizem drip at 15 mg per hour. Patient has been rate controlled. Most recent heart rate was 86 bpm. Qualifiers: Atrial fibrillation type: chronic Qualified Code(s): I48.2 - Chronic atrial fibrillation (7) Morbid obesity Current Visit: No Status: Chronic Patient has a BMI of 59.5. Also due to the patient having a significantly elevated BMI there is decreased ability for further imaging. Patient was unable to have a CT scan of the abdomen and pelvis due to the patient's abdominal girth. His minor sinning that the patient's family did not want her transferred to an outside facility for further imaging due to having lack of ability to travel to where the patient will be eventually transferred. (8) DVT prophylaxis Current Visit: Yes Status: Acute Patient has heparin 5000 units subcutaneous every 8 hours ordered for DVT prophylaxis. Subjective Principal diagnosis: acute exacerbation of COPD with pneumonia Interval history: There are no acute events noted over night. The patient is sedated on the ventilator so further history is unable to be obtained from the patient. Objective PUL Vital signs: Last Vital Signs Temp 99.3 F 08/29/18 07:55 Pulse 86 08/29/18 06:00 Resp 14 08/29/18 07:13 BP 127/79 08/29/18 06:00 Pulse Ox 95 08/29/18 07:13 General appearance: other (Patient is intubated and sedated. She is able to open her eyes and becomes agitated at times.) Eyes: nonicteric Auscultation: bilateral: other (Course breath sounds bilaterally.) Cardiovascular: regular rate and rhythm Gastrointestinal: normoactive bowel sounds, soft, other (Patient does have bruising over the abdomen from her subcutaneous heparin shots.) Extremities: edema (1+ pitting edema bilateral lower extremity's.) Musculoskeletal: no deformities other (Unable to fully assess due to the patient having sedation and being intubated.) other (Unable to fully assess due to the patient being sedated and intubated.) Ventilator Settings Ventilator Settings: Ventilator Settings, Last 8 Hours Ventilator Tidal Volume 550 Setting Ventilator Tidal Volume 620 Setting Ventilator Tidal Volume 620 Setting Ventilator Tidal Volume 620 Setting Ventilator Tidal Volume 620 Setting Ventilator Tidal Volume 620 Setting Ventilator Tidal Volume 620 Setting Ventilator Tidal Volume 620 Setting Ventilator Tidal Volume 620 Setting Ventilator Tidal Volume 620 Setting Ventilator Tidal Volume 620 Setting Ventilator Tidal Volume 620 Setting Ventilator Respiratory Rate 14 Setting Ventilator Respiratory Rate 14 Setting Ventilator Respiratory Rate 14 Setting Ventilator Respiratory Rate 14 Setting Ventilator Respiratory Rate 14 Setting Ventilator Respiratory Rate 14 Setting Ventilator Respiratory Rate 14 Setting Ventilator Respiratory Rate 14 Setting Ventilator Respiratory Rate 14 Setting Ventilator Respiratory Rate 14 Setting Ventilator Respiratory Rate 14 Setting Actual Respiratory Rate 14 Actual Respiratory Rate 14 Actual Respiratory Rate 14 Actual Respiratory Rate 14 Actual Respiratory Rate 14 Actual Respiratory Rate 14 Actual Respiratory Rate 16 Actual Respiratory Rate 16 Actual Respiratory Rate 16 Actual Respiratory Rate 14 Positive End Expiratory 8 Pressure Positive End Expiratory 8 Pressure Positive End Expiratory 8 Pressure Positive End Expiratory 8 Pressure Positive End Expiratory 8 Pressure Positive End Expiratory 8 Pressure Positive End Expiratory 8 Pressure Positive End Expiratory 8 Pressure Positive End Expiratory 8 Pressure Positive End Expiratory 8 Pressure Positive End Expiratory 8 Pressure Peak Inspiratory Airway 31 Pressure Peak Inspiratory Airway 31 Pressure Peak Inspiratory Airway 38 Pressure Peak Inspiratory Airway 34 Pressure Peak Inspiratory Airway 34 Pressure Peak Inspiratory Airway 35 Pressure Peak Inspiratory Airway 36 Pressure Peak Inspiratory Airway 32 Pressure Peak Inspiratory Airway 31 Pressure Peak Inspiratory Airway 37 Pressure Results - Laboratory Findings CBC and BMP: 08/29/18 03:30 08/29/18 03:30 ABG ABG pH 7.34 pH Units (7.32-7.45) 08/29/18 04:11 ABG pCO2 62 mmHg (35-45) H 08/29/18 04:11 ABG pO2 77 mmHg (85-104) L 08/29/18 04:11 ABG O2 Saturation 94 % (95-98) L 08/29/18 04:11 PT/INR, D-dimer PT 16.1 Seconds (9.4-12.1) H 08/28/18 16:20 Abnormal lab findings: Abnormal lab results WBC 14.1 K/mcL (4.3-11.1) H 08/29/18 03:30 RBC 3.55 M/mcL (3.82-4.97) L 08/29/18 03:30 Hgb 11.2 g/dL (11.5-15.4) L 08/29/18 03:30 MCV 103.9 fL (83.0-100.0) H 08/29/18 03:30 MCHC 30.4 g/dL (31.6-35.5) L 08/29/18 03:30 RDW 15.5 % (11.5-14.5) H 08/29/18 03:30 Band Neutrophils % 16.0 % (0-4) H 08/24/18 03:45 Metamyelocytes % 2.0 % (0) H 08/24/18 03:45 Neutrophils # 13.0 K/mcL (1.6-8.9) H 08/29/18 03:30 Lymphocytes # 0.3 K/mcL (0.6-4.6) L 08/29/18 03:30 Nucleated RBCs/100 WBC 0.1 /100 WBC (0) H 08/29/18 03:30 Anisocytosis 1+ (Not Present) A 08/24/18 03:45 Macrocytosis Present (Not Present) A 08/24/18 03:45 PT 16.1 Seconds (9.4-12.1) H 08/28/18 16:20 APTT 22.6 Seconds (26.0-36.0) L 08/28/18 16:20 ABG pCO2 62 mmHg (35-45) H 08/29/18 04:11 ABG pO2 77 mmHg (85-104) L 08/29/18 04:11 ABG HCO3 33 mEq/L (21-27) H 08/29/18 04:11 ABG Total CO2 35 mEq/L (20-26) H 08/29/18 04:11 ABG O2 Saturation 94 % (95-98) L 08/29/18 04:11 ABG Base Excess 6 mEq/L (-2 to 3) H 08/29/18 04:11 Sodium 151 mEq/L (136-145) H 08/29/18 03:30 Chloride 116 mEq/L (98-107) H 08/29/18 03:30 BUN 40 mg/dL (6-20) H 08/29/18 03:30 BUN/Creatinine Ratio 66 (6-26) H 08/29/18 03:30 Glucose 267 mg/dL (70-105) H 08/29/18 03:30 POC Glucose 254 mg/dL (70-99) H 08/28/18 23:14 Calculated Osmolality 331 (280-300) H 08/29/18 03:30 Calcium 8.0 mg/dL (8.6-10.3) L 08/29/18 03:30 Ur Specific [place] 1.027 (1.010-1.025) H 08/25/18 11:17 Urine Protein 30 mg/dL (Neg-Trace) H 08/25/18 11:17 Urine Microscopic WBC 3-5 per hpf (0-3) H 08/25/18 11:17 Ur Squamous Epith Cells Many per lpf (None-Few) H 08/25/18 11:17 Nasal Screen MRSA (PCR) Positive (Negative) A 08/22/18 15:20 Vancomycin Trough 20 mcg/mL (5-10) H 08/28/18 04:45 Adenovirus (PCR) DETECTED (Not Detect) A 08/22/18 15:20 - Microbiology Findings Microbiology Findings: Microbiology, Last 48 Hours 08/27/18 11:39 Blood Culture - Preliminary Peripheral Venipuncture Culture is incubating and being continuously monitored for growth. Final report to follow. 08/25/18 17:30 Sputum Culture - Final Trachea Hemalatha albicans - Diagnostic Findings Chest x-ray: report reviewed, image reviewed - Clinical Findings Intake & Output: Intake & Output 08/28/18 08/29/18 08/29/18 23:59 07:59 15:59 Intake Total 750 / 750 525 / 525 Output Total 1450 / 1450 375 / 375 Balance -700 / -700 150 / 150 Weight 172.4 kg
[2018-08-29] MEDS: Clotrimazole 1% CRM 15 GM TUBE TP SCH ×2 (08:18→20:46)
[2018-08-29] MEDS: Pantoprazole 40 MG VIAL IVP SCH (08:18)
[2018-08-29] MEDS: Cefepime HCl 2,000 MG in 0.9 % Sodium Chloride Mini Bag 100 ML IVPB SCH ×3 (08:19→23:05)
[2018-08-29] MEDS: Chlorhexidine Rinse 15 ML MOUTHWASH MM SCH ×2 (08:19→20:45)
[2018-08-29] MEDS: Bisacodyl 10 MG RECTAL SUPPOSITORY RC SCH (08:20)
[2018-08-29] MEDS: MetroNIDAZOLE 500 MG/100 ML 500 MG/100 ML BAG IVPB SCH (08:20)
[2018-08-29] MEDS: Furosemide 40 MG/4 ML VIAL IVP SCH ×2 (08:20→16:11)
[2018-08-29 09:40] LABS: ABG Base Excess 5 mEq/L (-2 to 3); ABG HCO3 33 mEq/L (21-27); ABG Oxygen Saturation 85 % (95-98); ABG PCO2 63 mmHg (35-45); ABG PH 7.33 pH Units (7.32-7.45); ABG PO2 56 mmHg (85-104); ABG TCO2 35 mEq/L (20-26); Blood Gas Respiration Rate 14; Blood Gas VT 550 cc
[2018-08-29] MEDS ORDERED: Potassium Chloride Elixir 20 MEQ/15 ML UDC GTUBE ONE (11:59)
[2018-08-29] MEDS: Clindamycin 600 MG/50 ML 600 MG/50 ML IV.SOLN IVPB SCH ×2 (16:10→23:05)
[2018-08-29] MEDS: Norepinephrine 8 MG in D5% in Water 250 ML IVC SCH (17:23)
[2018-08-29 18:10] LABS: BUN/Creatinine Ratio 60 (6-26); Blood Urea Nitrogen 41 mg/dL (6-20); Carbon Dioxide 30 mEq/L (23-29); Chloride 112 mEq/L (98-107); Glucose 331 mg/dL (70-105); Osmolality,Calculated 333 (280-300); Sodium 150 mEq/L (136-145); eGFR For Non-African Americans > 60 (> 60)
[2018-08-29] MEDS ORDERED: Insulin DETEMIR 100 UNIT/ML X5UNITS SQ SCH (21:00)
[2018-08-30] MEDS: FentaNYL (PF) 1,000 MCG in 0.9 % Sodium Chloride 80 ML IVC SCH ×2 (01:10→12:30)
[2018-08-30] MEDS: Levalbuterol Neb 0.63 MG/3 ML IH SCH ×6 (03:21→23:26)
[2018-08-30] MEDS: Dexmedetomidine HCl 400 MCG/100 ML MLS IVC SCH ×5 (03:30→21:41)
[2018-08-30] MEDS: Insulin LISPRO 300 UNITS/3 ML VIAL SQ SCH ×6 (03:57→23:31)
[2018-08-30] MEDS: Artificial Tears SOLN 15 ML BOTTLE BOTH EYES SCH ×6 (03:57→23:30)
[2018-08-30 04:40] LABS: ABG Base Excess 7 mEq/L (-2 to 3); ABG HCO3 35 mEq/L (21-27); ABG Oxygen Saturation 94 % (95-98); ABG PCO2 70 mmHg (35-45); ABG PH 7.31 pH Units (7.32-7.45); ABG PO2 81 mmHg (85-104); ABG TCO2 37 mEq/L (20-26); Blood Gas Modality VC; Blood Gas PEEP 8 cm H2O; Blood Gas Respiration Rate 14; Blood Gas VT 550 cc
[2018-08-30 05:17] LABS: Basophils % 0.2 %; Hematocrit 42.6 % (35.3-44.9); Immature Granulocytes % 2.3 % (0-4); Lymphocytes # 0.3 K/mcL (0.6-4.6); Lymphocytes % 1.9 %; Mean Corpuscular HGB Conc 28.2 g/dL (31.6-35.5); Mean Corpuscular Hemoglobin 31.9 pg (28.0-33.3); Mean Platelet Volume 10.2 fL (9.4-12.4); Monocytes % 3.9 %; Neutrophils # 15.2 K/mcL (1.6-8.9); Nucleated Red Blood Cells 0.1 /100 WBC (0); Platelet Count 196 K/mcL (140-400); Red Blood Count 3.76 M/mcL (3.82-4.97); Red Cell Distribution Width 15.3 % (11.5-14.5); Segmented Neutrophils % 91.7 %
[2018-08-30 05:25] LABS: Mean Corpuscular Volume 113.3 fL (83.0-100.0); Monocytes # 0.7 K/mcL (0.0-1.3)
[2018-08-30] MEDS: *HR* Heparin 5,000 UNIT/ML VIAL SQ SCH ×3 (05:32→21:07)
[2018-08-30] MEDS: Metoclopramide 10 MG/2 ML VIAL IVP SCH ×4 (05:32→23:31)
[2018-08-30] MEDS: MethylPREDNISolone 40 MG/ML VIAL IVP SCH (05:32)
[2018-08-30 05:37] LABS: BUN/Creatinine Ratio 69 (6-26); Blood Urea Nitrogen 42 mg/dL (6-20); Carbon Dioxide 32 mEq/L (23-29); Chloride 112 mEq/L (98-107); Glucose 288 mg/dL (70-105); Osmolality,Calculated 331 (280-300); Potassium 3.8 mEq/L (3.5-5.1); Sodium 150 mEq/L (136-145); eGFR For Non-African Americans > 60 (> 60)
[2018-08-30 06:13] LABS: Platelet Estimate Normal (Normal)
[2018-08-30] MEDS: Cefepime HCl 2,000 MG in 0.9 % Sodium Chloride Mini Bag 100 ML IVPB SCH ×3 (08:11→23:30)
[2018-08-30] MEDS: Chlorhexidine Rinse 15 ML MOUTHWASH MM SCH ×2 (08:11→20:52)
[2018-08-30] MEDS: Furosemide 40 MG/4 ML VIAL IVP SCH (08:11)
[2018-08-30] MEDS: Pantoprazole 40 MG VIAL IVP SCH (08:11)
[2018-08-30] MEDS: Clindamycin 600 MG/50 ML 600 MG/50 ML IV.SOLN IVPB SCH ×3 (08:11→23:30)
[2018-08-30] MEDS: Bisacodyl 10 MG RECTAL SUPPOSITORY RC SCH (08:12)
[2018-08-30] MEDS: Clotrimazole 1% CRM 15 GM TUBE TP SCH ×2 (08:12→20:52)
--- NOTE | 2018-08-30 09:54 | Pulmonology Progress Note ---
Date of Encounter: 08/30/18 Time of Encounter: 09:54 Assessment and Plan (1) Acute respiratory failure with hypoxia and hypercapnia Current Visit: No Status: Acute I spent 31 min of Critical Care time with this patient. It involved decision making of high complexity to assess, manipulate, and support vital organ system failure and/or to prevent further life threatening deterioration of the patient's condition. The time involved in the performance of separately reportable procedures was not counted toward critical care time. Patient seen and examined at bedside Labs, radiology, chart personally reviewed. Below reflects my systems basis assessment and plan for this critically ill patient GLOBE MOUNTER: Multifactorial encephalopathy including sepsis and suspected ICU delirium she remains on sedation unfortunately is unable to be lifted because of agitation which drives up her heart rate will continue to sedate with propofol and fentanyl along with Precedex for goal [place] of 3 Pulm: Acute on chronic hypoxic hypercapnic respiratory failure remains on vent persistent acceptable hypercarbia increase tidal volume because of obesity otherwise acceptable gas exchange today she is not a candidate for spontaneous 3 trial because of encephalopathy. Additionally respiratory status is complicated by COPD exacerbation because of hyperglycemia will stop systemic glucocorticoids given that she has received over 8 days plan also to continue bronchodilators. I discussed with the family that likely patient would need tracheostomy placement and they are all in agreement that the patient would not want this and they will will not move in this direction should clinical course not improve. Cards: Atrial fibrillation with RVR rate controlled at this time however continue to titrate notable blocking agent GI: GI prophylaxis given while on vent patient has ileus without bowel movement plan to repeat enema today along with the addition of lactulose abdomen is soft although bowel sounds are not auscultated patient cannot fit into our CT scan of her further evaluation and abdominal exam is otherwise benign Nutrition: The patient has enteral nutrition which is been prescribed by dietary continue to advance to goal Renal: UOP Monitored, Cont to Trend sCr and monitor Electrolytes. ID: Persistent leukocytosis and I suspect is secondary to pneumonia patient risk for drug resistant organisms plan for bronchoscopy today with BAL continue broad -spectrum antibiotics Heme/Onc: DVT prophylaxis given H&H monitored and stable platelets stable Endo: Glucose Monitored remains hyperglycemic secondary to diabetes unfortunat [place] we will have to start insulin infusion Integ/MSK: Skin Care per routine ICU Nursing Protocol to prevent ulcers. Lines: All lines examined without evidence of infection : Dispo: We will continue to monitor in the ICU for critical illness full code I updated the patient's son Shayan on the phone who also gave consent for bronchoscopy CODE: full code prognosis remains guarded (2) Acute exacerbation of chronic obstructive airways disease Current Visit: Yes Status: Acute (3) Morbid obesity with BMI of 70 and over, adult Current Visit: No Status: Chronic (4) Atrial fibrillation Current Visit: No Status: Chronic Qualifiers: Atrial fibrillation type: chronic Qualified Code(s): I48.2 - Chronic atrial fibrillation (5) TYE (obstructive sleep apnea) Current Visit: No Status: Chronic (6) Acute diastolic (congestive) heart failure Current Visit: No Status: Acute (7) Pneumonia Current Visit: Yes Status: Acute Qualifiers: Pneumonia type: due to unspecified organism Laterality: unspecified laterality Lung location: unspecified part of lung Qualified Code(s): J18.9 - Pneumonia, unspecified organism (8) Goals of care, counseling/discussion Current Visit: Yes Status: Acute Subjective Principal diagnosis: acute exacerbation of COPD with pneumonia Interval history: Patient has been afebrile overnight she has had runs of A. fib with RVR but currently is rate controlled she still requiring high doses of sedative otherwise she becomes quite agitated and heart rate will increase. No family at bedside. Objective PUL Vital signs: Last Vital Signs Temp 99.0 F 08/30/18 08:38 Pulse 79 08/30/18 06:00 Resp 14 08/30/18 07:38 BP 117/53 08/30/18 07:38 Pulse Ox 98 08/30/18 07:38 The patient is intubated and sedated she appears comfortable when I am in the room her pupils are equal round and reactive to light endotracheal tube is noted in satisfactory position there is no central venous catheter she does have a neck is supple without evidence of JVD she has bilateral breath sounds although they are diminished because of body habitus she is a morbidly obese abdomen which is soft nondistended and there is no grimacing to deep palpation there is no auscultated bowel sounds she has heart sounds that are audible however irregular irregular without audible murmur she has bilateral lower extremity edema her distal extremities are warm there are pulses palpable she does not follow commands she does spontaneously move all extremities and she is able to localized pain Ventilator Settings Ventilator Settings: Ventilator Settings, Last 8 Hours Ventilator Tidal Volume 550 Setting Ventilator Tidal Volume 550 Setting Ventilator Tidal Volume 550 Setting Ventilator Tidal Volume 550 Setting Ventilator Tidal Volume 550 Setting Ventilator Tidal Volume 550 Setting Ventilator Tidal Volume 550 Setting Ventilator Tidal Volume 550 Setting Ventilator Tidal Volume 550 Setting Ventilator Respiratory Rate 14 Setting Ventilator Respiratory Rate 14 Setting Ventilator Respiratory Rate 14 Setting Ventilator Respiratory Rate 14 Setting Ventilator Respiratory Rate 14 Setting Ventilator Respiratory Rate 14 Setting Ventilator Respiratory Rate 14 Setting Ventilator Respiratory Rate 14 Setting Ventilator Respiratory Rate 14 Setting Actual Respiratory Rate 14 Actual Respiratory Rate 14 Actual Respiratory Rate 14 Actual Respiratory Rate 14 Actual Respiratory Rate 14 Actual Respiratory Rate 14 Actual Respiratory Rate 14 Actual Respiratory Rate 14 Positive End Expiratory 8 Pressure Positive End Expiratory 8 Pressure Positive End Expiratory 8 Pressure Positive End Expiratory 8 Pressure Positive End Expiratory 8 Pressure Positive End Expiratory 8 Pressure Positive End Expiratory 8 Pressure Positive End Expiratory 8 Pressure Positive End Expiratory 8 Pressure Peak Inspiratory Airway 37 Pressure Peak Inspiratory Airway 27 Pressure Peak Inspiratory Airway 33 Pressure Peak Inspiratory Airway 27 Pressure Peak Inspiratory Airway 27 Pressure Peak Inspiratory Airway 36 Pressure Peak Inspiratory Airway 27 Pressure Peak Inspiratory Airway 27 Pressure Results - Laboratory Findings CBC and BMP: 08/30/18 04:56 08/30/18 04:56 ABG ABG pH 7.31 pH Units (7.32-7.45) L 08/30/18 04:31 ABG pCO2 70 mmHg (35-45) H* 08/30/18 04:31 ABG pO2 81 mmHg (85-104) L 08/30/18 04:31 ABG O2 Saturation 94 % (95-98) L 08/30/18 04:31 PT/INR, D-dimer PT 16.1 Seconds (9.4-12.1) H 08/28/18 16:20 Abnormal lab findings: Abnormal lab results WBC 16.6 K/mcL (4.3-11.1) H 08/30/18 04:56 RBC 3.76 M/mcL (3.82-4.97) L 08/30/18 04:56 MCV 113.3 fL (83.0-100.0) H D 08/30/18 04:56 MCHC 28.2 g/dL (31.6-35.5) L 08/30/18 04:56 RDW 15.3 % (11.5-14.5) H 08/30/18 04:56 Band Neutrophils % 16.0 % (0-4) H 08/24/18 03:45 Metamyelocytes % 2.0 % (0) H 08/24/18 03:45 Neutrophils # 15.2 K/mcL (1.6-8.9) H 08/30/18 04:56 Lymphocytes # 0.3 K/mcL (0.6-4.6) L 08/30/18 04:56 Nucleated RBCs/100 WBC 0.1 /100 WBC (0) H 08/30/18 04:56 Anisocytosis 1+ (Not Present) A 08/24/18 03:45 Macrocytosis Present (Not Present) A 08/24/18 03:45 PT 16.1 Seconds (9.4-12.1) H 08/28/18 16:20 APTT 22.6 Seconds (26.0-36.0) L 08/28/18 16:20 ABG pH 7.31 pH Units (7.32-7.45) L 08/30/18 04:31 ABG pCO2 70 mmHg (35-45) H* 08/30/18 04:31 ABG pO2 81 mmHg (85-104) L 08/30/18 04:31 ABG HCO3 35 mEq/L (21-27) H 08/30/18 04:31 ABG Total CO2 37 mEq/L (20-26) H 08/30/18 04:31 ABG O2 Saturation 94 % (95-98) L 08/30/18 04:31 ABG Base Excess 7 mEq/L (-2 to 3) H 08/30/18 04:31 Sodium 150 mEq/L (136-145) H 08/30/18 04:56 Chloride 112 mEq/L (98-107) H 08/30/18 04:56 Carbon Dioxide 32 mEq/L (23-29) H 08/30/18 04:56 BUN 42 mg/dL (6-20) H 08/30/18 04:56 BUN/Creatinine Ratio 69 (6-26) H 08/30/18 04:56 Glucose 288 mg/dL (70-105) H 08/30/18 04:56 POC Glucose 278 mg/dL (70-99) H 08/30/18 03:27 Calculated Osmolality 331 (280-300) H 08/30/18 04:56 Ur Specific [place] 1.027 (1.010-1.025) H 08/25/18 11:17 Urine Protein 30 mg/dL (Neg-Trace) H 08/25/18 11:17 Urine Microscopic WBC 3-5 per hpf (0-3) H 08/25/18 11:17 Ur Squamous Epith Cells Many per lpf (None-Few) H 08/25/18 11:17 Nasal Screen MRSA (PCR) Positive (Negative) A 08/22/18 15:20 Vancomycin Trough 13 mcg/mL (5-10) H 08/29/18 16:59 Adenovirus (PCR) DETECTED (Not Detect) A 08/22/18 15:20 - Microbiology Findings Microbiology Findings: Microbiology, Last 48 Hours 08/29/18 07:50 Urine Culture - Final Urine,[place] No growth. 08/29/18 07:38 Blood Culture - Preliminary Peripheral Venipuncture Culture is incubating and being continuously monitored for growth. Final report to follow. 08/29/18 07:45 Blood Culture - Preliminary Peripheral Venipuncture Culture is incubating and being continuously radha tored for growth. Final report to follow. 08/27/18 11:39 Blood Culture - Preliminary Peripheral Venipuncture Culture is incubating and being continuously monitored for growth. Final report to follow. 08/25/18 17:30 Sputum Culture - Final Trachea Hemalatha albicans - Diagnostic Findings Chest x-ray: report reviewed, image reviewed - Clinical Findings Intake & Output: Intake & Output 08/29/18 08/30/18 08/30/18 23:59 07:59 15:59 Intake Total 800 / 800 510 / 510 Output Total 1600 / 1600 525 / 525 175 / 175 Balance -800 / -800 -15 / -15 -175 / -175 Weight 173.8 kg Consult Discharge Plan - Plan Referrals: NONE,PCP [Primary Care Provider] -
[2018-08-30] MEDS ORDERED: Milk and Molasses Enema 200 ML RC ONE (11:00)
[2018-08-30] MEDS: Insulin Human Regular 100 UNIT in 0.9 % Sodium Chloride 100 ML IVC SCH ×2 (12:30→23:00)
[2018-08-30] MEDS: Lactulose Oral Soln 20 GM/30 ML UDC PO SCH ×2 (13:13→20:52)
[2018-08-30 18:45] LABS: Appearance of Body Fluid Slightly Hazy (Clear); Volume of Body Fluid 15 mL
[2018-08-30] MEDS: Norepinephrine 8 MG in D5% in Water 250 ML IVC SCH (19:00)
[2018-08-31] MEDS: Dexmedetomidine HCl 400 MCG/100 ML MLS IVC SCH ×6 (02:17→23:20)
[2018-08-31] MEDS: Artificial Tears SOLN 15 ML BOTTLE BOTH EYES SCH ×6 (03:32→23:19)
[2018-08-31] MEDS: Levalbuterol Neb 0.63 MG/3 ML IH SCH ×6 (03:33→23:51)
[2018-08-31] MEDS: Insulin LISPRO 300 UNITS/3 ML VIAL SQ SCH (03:33)
[2018-08-31 05:21] LABS: ABG Base Excess 8 mEq/L (-2 to 3); ABG HCO3 37 mEq/L (21-27); ABG Oxygen Saturation 93 % (95-98); ABG PCO2 68 mmHg (35-45); ABG PH 7.34 pH Units (7.32-7.45); ABG PO2 75 mmHg (85-104); ABG TCO2 39 mEq/L (20-26); Blood Gas Modality PRVC; Blood Gas PEEP 8 cm H2O; Blood Gas Respiration Rate 14; Blood Gas VT 550 cc
[2018-08-31] MEDS: Metoclopramide 10 MG/2 ML VIAL IVP SCH ×4 (06:11→23:19)
[2018-08-31] MEDS: *HR* Heparin 5,000 UNIT/ML VIAL SQ SCH ×3 (06:12→20:18)
--- NOTE | 2018-08-31 06:43 | Pulmonology Progress Note ---
Date of Encounter: 08/31/18 Time of Encounter: 06:43 Assessment and Plan (1) Acute respiratory failure with hypoxia and hypercapnia Current Visit: No Status: Acute I spent 32 min of Critical Care time with this patient. It involved decision making of high complexity to assess, manipulate, and support vital organ system failure and/or to prevent further life threatening deterioration of the patient's condition. The time involved in the performance of separately reportable procedures was not counted toward critical care time. Patient seen and examined at bedside Labs, radiology, chart personally reviewed. Below reflects my systems basis assessment and plan for this critically ill patient [employer]MENT[employer] INSPECTOR: Multifactorial encephalopathy including sepsis and suspected ICU delirium she remains on sedation unfortunately is unable to be lifted because of agitation which drives up her heart rate will continue to sedate with propofol and fentanyl along with Precedex for goal [place] of 3 Pulm: Acute on chronic hypoxic hypercapnic respiratory failure remains on vent persistent acceptable hypercarbia increase tidal volume because of obesity otherwise acceptable gas exchange today she is not a candidate for spontaneous breathing trial because of encephalopathy. S/p Bronch 08/30 with some mucoid secretions in RML/RLL which were suctioned. Suspect PNA Cards: Atrial fibrillation with RVR rate controlled at this time however continue to titrate david blocking agent' this in large part is s/t Anxiety GI: GI prophylaxis given while on vent patient has ileus without bowel movement plan to repeat enema today along with the addition of lactulose abdomen is soft although bowel sounds are not auscultated patient cannot fit into our CT scan of her further evaluation and abdominal exam is otherwise benign cont to increase bowel regimen Nutrition: The patient has enteral nutrition which is been prescribed by dietary continue to advance to goal Renal: Hypernatremia improving; UOP Monitored, Cont to Trend sCr and monitor Electrolytes. ID: Persistent leukocytosis and I suspect is secondary to pneumonia (enterobacter ?Drug resistance) will switch to meropenem Heme/Onc: DVT prophylaxis given H&H monitored and stable platelets stable Endo: Glucose Monitored better glycemic coverage on insulin infusion will continue to monitor Integ/MSK: Skin Care per routine ICU Nursing Protocol to prevent ulcers. Lines: All lines examined without evidence of infection : Dispo: We will continue to monitor in the ICU for critical illness full code CODE: full code prognosis remains guarded to poor. I suspect agent would need tracheostomy placement which the family is decidedly against (2) Acute exacerbation of chronic obstructive airways disease Current Visit: Yes Status: Acute (3) Morbid obesity with BMI of 70 and over, adult Current Visit: No Status: Chronic (4) Atrial fibrillation Current Visit: No Status: Chronic Qualifiers: Atrial fibrillation type: chronic Qualified Code(s): I48.2 - Chronic atrial fibrillation (5) TYE (obstructive sleep apnea) Current Visit: No Status: Chronic (6) Acute diastolic (congestive) heart failure Current Visit: No Status: Acute (7) Pneumonia Current Visit: Yes Status: Acute Qualifiers: Pneumonia type: due to unspecified organism Laterality: unspecified laterality Lung location: unspecified part of lung Qualified Code(s): J18.9 - Pneumonia, unspecified organism (8) Goals of care, counseling/discussion Current Visit: Yes Status: Acute Subjective Principal diagnosis: acute exacerbation of COPD with pneumonia Interval history: Patient has been afebrile overnight she has had runs of A. fib with RVR but currently is rate controlled it appears that her artery will go up whenever sedation is lifted. Still has not had a bowel movement Objective PUL Vital signs: Last Vital Signs Temp 99.0 F 08/31/18 03:45 Pulse 91 08/31/18 06:00 Resp 14 08/31/18 06:00 BP 104/70 08/31/18 06:00 Pulse Ox 96 08/31/18 06:00 General appearance: other (Sedated on vent no evidence of agitation) Eyes: nonicteric ENT: other (Endotracheal tube noted) Auscultation: bilateral: other (Air entry bilaterally she has generally diminished breath sounds because of body habitus percent of some faint crackles bilaterally as well) Cardiovascular: other (Irregular rate and rhythm) Gastrointestinal: soft, other (No grimace to palpation hypoactive bowel sounds) Integumentary: other (Noted skin breakdown in the left inguinal region) Extremities: pulses normal, edema pupils equal and round, unable to assess due to mental status other (She is sedated) Ventilator Settings Ventilator Settings: Ventilator Settings, Last 8 Hours Ventilator Tidal Volume 550 Setting Ventilator Tidal Volume 550 Setting Ventilator Tidal Volume 550 Setting Ventilator Tidal Volume 550 Setting Ventilator Tidal Volume 550 Setting Ventilator Tidal Volume 550 Setting Ventilator Tidal Volume 550 Setting Ventilator Tidal Volume 550 Setting Ventilator Tidal Volume 550 Setting Ventilator Tidal Volume 550 Setting Ventilator Tidal Volume 550 Setting Ventilator Tidal Volume 550 Setting Ventilator Tidal Volume 550 Setting Ventilator Respiratory Rate 14 Setting Ventilator Respiratory Rate 14 Setting Ventilator Respiratory Rate 14 Setting Ventilator Respiratory Rate 14 Setting Ventilator Respiratory Rate 14 Setting Ventilator Respiratory Rate 14 Setting Ventilator Respiratory Rate 14 Setting Ventilator Respiratory Rate 14 Setting Ventilator Respiratory Rate 14 Setting Ventilator Respiratory Rate 14 Setting Ventilator Respiratory Rate 14 Setting Ventilator Respiratory Rate 14 Setting Ventilator Respiratory Rate 14 Setting Actual Respiratory Rate 14 Actual Respiratory Rate 14 Actual Respiratory Rate 14 Actual Respiratory Rate 14 Actual Respiratory Rate 15 Actual Respiratory Rate 14 Actual Respiratory Rate 14 Actual Respiratory Rate 14 Actual Respiratory Rate 14 Actual Respiratory Rate 14 Actual Respiratory Rate 14 Actual Respiratory Rate 14 Positive End Expiratory 8 Pressure Positive End Expiratory 8 Pressure Positive End Expiratory 8 Pressure Positive End Expiratory 8 Pressure Positive End Expiratory 8 Pressure Positive End Expiratory 8 Pressure Positive End Expiratory 8 Pressure Positive End Expiratory 8 Pressure Positive End Expiratory 8 Pressure Positive End Expiratory 8 Pressure Positive End Expiratory 8 Pressure Positive End Expiratory 8 Pressure Positive End Expiratory 8 Pressure Peak Inspiratory Airway 31 Pressure Peak Inspiratory Airway 26 Pressure Peak Inspiratory Airway 26 Pressure Peak Inspiratory Airway 28 Pressure Peak Inspiratory Airway 34 Pressure Peak Inspiratory Airway 31 Pressure Peak Inspiratory Airway 31 Pressure Peak Inspiratory Airway 31 Pressure Peak Inspiratory Airway 31 Pressure Peak Inspiratory Airway 33 Pressure Peak Inspiratory Airway 32 Pressure Peak Inspiratory Airway 31 Pressure Results - Laboratory Findings CBC and BMP: 08/31/18 08:32 08/31/18 08:32 ABG ABG pH 7.34 pH Units (7.32-7.45) 08/31/18 05:18 ABG pCO2 68 mmHg (35-45) H 08/31/18 05:18 ABG pO2 75 mmHg (85-104) L 08/31/18 05:18 ABG O2 Saturation 93 % (95-98) L 08/31/18 05:18 PT/INR, D-dimer PT 16.1 Seconds (9.4-12.1) H 08/28/18 16:20 Abnormal lab findings: Abnormal lab results WBC 16.6 K/mcL (4.3-11.1) H 08/30/18 04:56 RBC 3.76 M/mcL (3.82-4.97) L 08/30/18 04:56 MCV 113.3 fL (83.0-100.0) H D 08/30/18 04:56 MCHC 28.2 g/dL (31.6-35.5) L 08/30/18 04:56 RDW 15.3 % (11.5-14.5) H 08/30/18 04:56 Band Neutrophils % 16.0 % (0-4) H 08/24/18 03:45 Metamyelocytes % 2.0 % (0) H 08/24/18 03:45 Neutrophils # 15.2 K/mcL (1.6-8.9) H 08/30/18 04:56 Lymphocytes # 0.3 K/mcL (0.6-4.6) L 08/30/18 04:56 Nucleated RBCs/100 WBC 0.1 /100 WBC (0) H 08/30/18 04:56 Anisocytosis 1+ (Not Present) A 08/24/18 03:45 Macrocytosis Present (Not Present) A 08/24/18 03:45 PT 16.1 Seconds (9.4-12.1) H 08/28/18 16:20 APTT 22.6 Seconds (26.0-36.0) L 08/28/18 16:20 ABG pCO2 68 mmHg (35-45) H 08/31/18 05:18 ABG pO2 75 mmHg (85-104) L 08/31/18 05:18 ABG HCO3 37 mEq/L (21-27) H 08/31/18 05:18 ABG Total CO2 39 mEq/L (20-26) H 08/31/18 05:18 ABG O2 Saturation 93 % (95-98) L 08/31/18 05:18 ABG Base Excess 8 mEq/L (-2 to 3) H 08/31/18 05:18 Sodium 150 mEq/L (136-145) H 08/30/18 04:56 Chloride 112 mEq/L (98-107) H 08/30/18 04:56 Carbon Dioxide 32 mEq/L (23-29) H 08/30/18 04:56 BUN 42 mg/dL (6-20) H 08/30/18 04:56 BUN/Creatinine Ratio 69 (6-26) H 08/30/18 04:56 Glucose 288 mg/dL (70-105) H 08/30/18 04:56 POC Glucose 129 mg/dL (70-99) H 08/31/18 00:05 Calculated Osmolality 331 (280-300) H 08/30/18 04:56 Ur Specific [place] 1.027 (1.010-1.025) H 08/25/18 11:17 Urine Protein 30 mg/dL (Neg-Trace) H 08/25/18 11:17 Urine Microscopic WBC 3-5 per hpf (0-3) H 08/25/18 11:17 Ur Squamous Epith Cells Many per lpf (None-Few) H 08/25/18 11:17 Fluid Appearance Slightly Hazy (Clear) A 08/30/18 Unknown Nasal Screen MRSA (PCR) Positive (Negative) A 08/22/18 15:20 Vancomycin Trough 13 mcg/mL (5-10) H 08/29/18 16:59 Adenovirus (PCR) DETECTED (Not Detect) A 08/22/18 15:20 - Microbiology Findings Microbiology Findings: Microbiology, Last 48 Hours 08/30/18 Unknown Respiratory Culture - Preliminary Right Lower Lobe Lung 08/30/18 Unknown Fungal Culture - Preliminary Right Lower Lobe Lung Culture is incubating. 08/25/18 09:01 Blood Culture - Final Peripheral Venipuncture No growth. Final report. 08/29/18 07:50 Urine Culture - Final Urine,[place] No growth. 08/29/18 07:38 Blood Culture - Preliminary Peripheral Venipuncture Culture is incubating and being continuously monitored for growth. Final report to follow. 08/29/18 07:45 Blood Culture - Preliminary Peripheral Venipuncture Culture is incubating and being continuously monitored for growth. Final report to follow. - Clinical Findings Intake & Output: Intake & Output 08/30/18 08/30/18 08/31/18 15:59 23:59 07:59 Intake Total 1213 / 1213 2198.0 / 2198.0 1022.5 / 1022.5 Output Total 1425 / 1425 450 / 450 300 / 300 Balance -212 / -212 1748.0 / 1748.0 722.5 / 722.5 Weight 171 kg Consult Discharge Plan - Plan Referrals: NONE,PCP [Primary Care Provider] -
[2018-08-31] MEDS: FentaNYL (PF) 1,000 MCG in 0.9 % Sodium Chloride 80 ML IVC SCH ×2 (07:04→20:20)
[2018-08-31] MEDS: Pantoprazole 40 MG VIAL IVP SCH (07:53)
[2018-08-31] MEDS: Lactulose Oral Soln 20 GM/30 ML UDC PO SCH ×2 (07:53→20:18)
[2018-08-31] MEDS: Chlorhexidine Rinse 15 ML MOUTHWASH MM SCH ×2 (07:53→20:18)
[2018-08-31] MEDS: Cefepime HCl 2,000 MG in 0.9 % Sodium Chloride Mini Bag 100 ML IVPB SCH (07:53)
[2018-08-31] MEDS: Clindamycin 600 MG/50 ML 600 MG/50 ML IV.SOLN IVPB SCH (07:54)
[2018-08-31] MEDS: Bisacodyl 10 MG RECTAL SUPPOSITORY RC SCH (08:01)
[2018-08-31] MEDS: Clotrimazole 1% CRM 15 GM TUBE TP SCH ×2 (08:01→20:18)
[2018-08-31] MEDS ORDERED: Aminoglycoside Consult 1 EACH MC ONE (08:38)
[2018-08-31 08:50] LABS: Hematocrit 38.2 % (35.3-44.9); Hemoglobin 11.7 g/dL (11.5-15.4); Mean Corpuscular HGB Conc 30.6 g/dL (31.6-35.5); Mean Corpuscular Hemoglobin 31.9 pg (28.0-33.3); Mean Platelet Volume 10.8 fL (9.4-12.4); Nucleated Red Blood Cells 0.3 /100 WBC (0); Platelet Count 233 K/mcL (140-400); Red Blood Count 3.67 M/mcL (3.82-4.97); Red Cell Distribution Width 15.3 % (11.5-14.5)
[2018-08-31 09:02] LABS: BUN/Creatinine Ratio 69 (6-26); Blood Urea Nitrogen 38 mg/dL (6-20); Calcium 8.6 mg/dL (8.6-10.3); Carbon Dioxide 30 mEq/L (23-29); Chloride 113 mEq/L (98-107); Glucose 194 mg/dL (70-105); Osmolality,Calculated 320 (280-300); Potassium 4.3 mEq/L (3.5-5.1); Sodium 148 mEq/L (136-145); eGFR For Non-African Americans > 60 (> 60)
[2018-08-31 09:26] LABS: Mean Corpuscular Volume 104.1 fL (83.0-100.0)
[2018-08-31 09:27] LABS: Lymphocytes # 2.2 K/mcL (0.6-4.6); Monocytes # 1.3 K/mcL (0.0-1.3); Neutrophils # 18.1 K/mcL (1.6-8.9); Platelet Estimate Normal (Normal)
[2018-08-31 09:28] LABS: Hypochromasia Present (Not Present)
[2018-08-31] MEDS: Meropenem 1,000 MG in Water for inj. (sterile) 20 ML 20 ML IVP SCH ×2 (15:18→23:19)
[2018-08-31] MEDS ORDERED: Ringers Solution, Lactated 1,000 ML ONE (15:39)
--- NOTE | 2018-08-31 16:26 | Event Note ---
Date of Encounter: 08/31/18 Time of Encounter: 11:00 Patient remains sedated and on vent support. Increasing leukocytosis today. No family present during my visit. Palliative following clinical course at a distance. Will likely need to remeet with family early next week if no improvement as she has started her 2nd week of intubation.
[2018-08-31] MEDS: Norepinephrine 8 MG in D5% in Water 250 ML IVC SCH (17:42)
[2018-09-01] MEDS: Dexmedetomidine HCl 400 MCG/100 ML MLS IVC SCH ×6 (03:20→21:57)
[2018-09-01] MEDS: Insulin Human Regular 100 UNIT in 0.9 % Sodium Chloride 100 ML IVC SCH (04:00)
[2018-09-01] MEDS: FentaNYL (PF) 1,000 MCG in 0.9 % Sodium Chloride 80 ML IVC SCH ×2 (04:00→16:02)
[2018-09-01] MEDS: Artificial Tears SOLN 15 ML BOTTLE BOTH EYES SCH ×6 (04:00→23:07)
[2018-09-01 05:05] LABS: ABG Base Excess 7 mEq/L (-2 to 3); ABG HCO3 36 mEq/L (21-27); ABG Oxygen Saturation 97 % (95-98); ABG PCO2 69 mmHg (35-45); ABG PH 7.32 pH Units (7.32-7.45); ABG PO2 104 mmHg (85-104); ABG TCO2 38 mEq/L (20-26); Blood Gas PEEP 8 cm H2O; Blood Gas Respiration Rate 14; Blood Gas VT 550 cc
[2018-09-01] MEDS: Metoclopramide 10 MG/2 ML VIAL IVP SCH ×4 (05:30→23:07)
[2018-09-01] MEDS: *HR* Heparin 5,000 UNIT/ML VIAL SQ SCH ×3 (05:30→19:43)
[2018-09-01] MEDS: Levalbuterol Neb 0.63 MG/3 ML IH SCH ×6 (07:11→23:25)
[2018-09-01 07:40] LABS: BUN/Creatinine Ratio 67 (6-26); Blood Urea Nitrogen 31 mg/dL (6-20); Calcium 8.5 mg/dL (8.6-10.3); Carbon Dioxide 30 mEq/L (23-29); Chloride 109 mEq/L (98-107); Glucose 153 mg/dL (70-105); Osmolality,Calculated 314 (280-300); Potassium 3.4 mEq/L (3.5-5.1); Sodium 147 mEq/L (136-145); eGFR For Non-African Americans > 60 (> 60)
[2018-09-01] MEDS: Chlorhexidine Rinse 15 ML MOUTHWASH MM SCH ×2 (07:45→19:43)
[2018-09-01] MEDS: Bisacodyl 10 MG RECTAL SUPPOSITORY RC SCH (07:46)
[2018-09-01] MEDS: Meropenem 1,000 MG in Water for inj. (sterile) 20 ML 20 ML IVP SCH ×3 (07:46→23:06)
[2018-09-01] MEDS: Lactulose Oral Soln 20 GM/30 ML UDC PO SCH ×2 (07:46→19:44)
[2018-09-01] MEDS: Pantoprazole 40 MG VIAL IVP SCH (07:46)
[2018-09-01] MEDS: Clotrimazole 1% CRM 15 GM TUBE TP SCH ×2 (07:47→19:44)
--- NOTE | 2018-09-01 08:22 | Pulmonology Progress Note ---
Date of Encounter: 09/01/18 Time of Encounter: 08:22 Assessment and Plan (1) Acute respiratory failure with hypoxia and hypercapnia Current Visit: No Status: Acute Patient seen and examined at bedside Labs, radiology, chart personally reviewed. Below reflects my systems basis assessment and plan for this critically ill patient UNDER CUTTER: Multifactorial encephalopathy including sepsis and suspected ICU delirium she remains on sedation unfortunately is unable to be lifted because of agitation which drives up her heart rate will continue to sedate with propofol and fentanyl along with Precedex for goal Hallie of 3; will also address her Seroquel twice a day and scheduled Ativan and attempt to get off propofol Pulm: Acute on chronic hypoxic hypercapnic respiratory failure remains on vent persistent acceptable hypercarbia increase tidal volume because of obesity otherwise acceptable gas exchange today she is not a candidate for spontaneous breathing trial because of encephalopathy. S/p Bronch 08/30 with some mucoid secretions in RML/RLL which were suctioned. Suspect PNA Cards: Atrial fibrillation with RVR rate controlled at this time however continue to titrate david blocking as needed this is mediated large part from anxiety GI: GI prophylaxis given while on vent patient has ileus is resolving Nutrition: The patient has enteral nutrition which is been prescribed by dietary continue to advance to goal Renal: Hypernatremia improving; UOP Monitored, Cont to Trend sCr and monitor Electrolytes. ID: Patient being treated for Enterobacter pneumonia had persistent leukocytosis and was switched to meropenem yesterday from Zosyn white count is trending down now Heme/Onc: DVT prophylaxis given H&H monitored and stable platelets stable Endo: Glucose Monitored better glycemic coverage on insulin infusion will continue to monitor Integ/MSK: Skin Care per routine ICU Nursing Protocol to prevent ulcers. Lines: All lines examined without evidence of infection : Dispo: We will continue to monitor in the ICU for critical illness full code CODE: full code prognosis remains guarded to poor. I suspect agent would need tracheostomy placement which the family is decidedly against (2) Acute exacerbation of chronic obstructive airways disease Current Visit: Yes Status: Acute (3) Morbid obesity with BMI of 70 and over, adult Current Visit: No Status: Chronic (4) Atrial fibrillation Current Visit: No Status: Chronic Qualifiers: Atrial fibrillation type: chronic Qualified Code(s): I48.2 - Chronic atrial fibrillation (5) TYE (obstructive sleep apnea) Current Visit: No Status: Chronic (6) Acute diastolic (congestive) heart failure Current Visit: No Status: Acute (7) Pneumonia Current Visit: Yes Status: Acute Qualifiers: Pneumonia type: due to unspecified organism Laterality: unspecified laterality Lung location: unspecified part of lung Qualified Code(s): J18.9 - Pneumonia, unspecified organism (8) Goals of care, counseling/discussion Current Visit: Yes Status: Acute Subjective Principal diagnosis: acute exacerbation of COPD with pneumonia Interval history: Sedation was lifted and patient appeared to be able to follow commands but quickly became anxious with the spike in heart rate up into the 180s to 200s at time she is very anxious appearing during these moments denying of any chest pain or any pain in general. She was able to have several bowel movements over the last 24 hours Objective PUL Vital signs: Last Vital Signs Temp 98.9 F 09/01/18 07:15 Pulse 86 09/01/18 07:00 Resp 14 09/01/18 07:52 BP 85/61 09/01/18 07:00 Pulse Ox 96 09/01/18 07:52 General appearance: other (When I examined her she was sedated on vent and comfortable appearing) Eyes: nonicteric ENT: other (ET tube noted in satisfactory position) Neck: supple Auscultation: bilateral: diminished breath sounds Cardiovascular: irregular rhythm Gastrointestinal: hypoactive bowel sounds Integumentary: other (Noted to have skin breakdown in the right inguinal region underneath the pannus) Extremities: pink and warm, no ischemia or petechiae, edema Musculoskeletal: no deformities other (Recent noted to spontaneously move all extremities pupils are equal round and reactive to light) other (Sedated) Ventilator Settings Ventilator Settings: Ventilator Settings, Last 8 Hours Ventilator Tidal Volume 550 Setting Ventilator Tidal Volume 550 Setting Ventilator Tidal Volume 550 Setting Ventilator Tidal Volume 550 Setting Ventilator Tidal Volume 550 Setting Ventilator Tidal Volume 550 Setting Ventilator Tidal Volume 550 Setting Ventilator Tidal Volume 550 Setting Ventilator Tidal Volume 550 Setting Ventilator Respiratory Rate 14 Setting Ventilator Respiratory Rate 14 Setting Ventilator Respiratory Rate 14 Setting Ventilator Respiratory Rate 14 Setting Ventilator Respiratory Rate 14 Setting Ventilator Respiratory Rate 14 Setting Ventilator Respiratory Rate 14 Setting Ventilator Respiratory Rate 14 Setting Ventilator Respiratory Rate 14 Setting Actual Respiratory Rate 14 Actual Respiratory Rate 14 Actual Respiratory Rate 20 Actual Respiratory Rate 16 Actual Respiratory Rate 16 Actual Respiratory Rate 20 Actual Respiratory Rate 16 Actual Respiratory Rate 16 Actual Respiratory Rate 16 Positive End Expiratory 8 Pressure Positive End Expiratory 8 Pressure Positive End Expiratory 8 Pressure Positive End Expiratory 8 Pressure Positive End Expiratory 8 Pressure Positive End Expiratory 8 Pressure Positive End Expiratory 8 Pressure Positive End Expiratory 8 Pressure Positive End Expiratory 8 Pressure Peak Inspiratory Airway 32 Pressure Peak Inspiratory Airway 31 Pressure Peak Inspiratory Airway 31 Pressure Peak Inspiratory Airway 31 Pressure Peak Inspiratory Airway 32 Pressure Peak Inspiratory Airway 32 Pressure Peak Inspiratory Airway 28 Pressure Results - Laboratory Findings CBC and BMP: 09/01/18 04:22 09/01/18 04:22 ABG ABG pH 7.32 pH Units (7.32-7.45) 09/01/18 05:01 ABG pCO2 69 mmHg (35-45) H 09/01/18 05:01 ABG pO2 104 mmHg (85-104) 09/01/18 05:01 ABG O2 Saturation 97 % (95-98) 09/01/18 05:01 PT/INR, D-dimer PT 16.1 Seconds (9.4-12.1) H 08/28/18 16:20 Abnormal lab findings: Abnormal lab results WBC 21.6 K/mcL (4.3-11.1) H 08/31/18 08:32 RBC 3.67 M/mcL (3.82-4.97) L 08/31/18 08:32 Hgb 11.2 g/dL (11.5-15.4) L 08/29/18 03:30 Hct 34.5 % (35.3-44.9) L 08/25/18 07:37 MCV 104.1 fL (83.0-100.0) H D 08/31/18 08:32 MCHC 30.6 g/dL (31.6-35.5) L 08/31/18 08:32 RDW 15.3 % (11.5-14.5) H 08/31/18 08:32 16.0 % (0-4) H 08/24/18 03:45 2.0 % (0) H 08/24/18 03:45 18.1 K/mcL (1.6-8.9) H 08/31/18 08:32 0.3 K/mcL (0.6-4.6) L 08/30/18 04:56 Nucleated RBCs/100 WBC 0.3 /100 WBC (0) H 08/31/18 08:32 Present (Not Present) A 08/31/18 08:32 1+ (Not Present) A 08/24/18 03:45 Present (Not Present) A 08/24/18 03:45 PT 16.1 Seconds (9.4-12.1) H 08/28/18 16:20 APTT 22.6 Seconds (26.0-36.0) L 08/28/18 16:20 ABG pH 7.31 pH Units (7.32-7.45) L 08/30/18 04:31 ABG pCO2 69 mmHg (35-45) H 09/01/18 05:01 ABG pO2 75 mmHg (85-104) L 08/31/18 05:18 ABG HCO3 36 mEq/L (21-27) H 09/01/18 05:01 ABG Total CO2 38 mEq/L (20-26) H 09/01/18 05:01 ABG O2 Saturation 93 % (95-98) L 08/31/18 05:18 ABG Base Excess 7 mEq/L (-2 to 3) H 09/01/18 05:01 Sodium 147 mEq/L (136-145) H 09/01/18 04:22 Potassium 3.4 mEq/L (3.5-5.1) L 09/01/18 04:22 Chloride 109 mEq/L (98-107) H 09/01/18 04:22 Carbon Dioxide 30 mEq/L (23-29) H 09/01/18 04:22 BUN 31 mg/dL (6-20) H 09/01/18 04:22 0.46 mg/dL (0.60-1.20) L 09/01/18 04:22 67 (6-26) H 09/01/18 04:22 Glucose 153 mg/dL (70-105) H 09/01/18 04:22 POC Glucose 153 mg/dL (70-99) H 09/01/18 07:56 314 (280-300) H 09/01/18 04:22 Calcium 8.5 mg/dL (8.6-10.3) L 09/01/18 04:22 Ur Specific [place] 1.027 (1.010-1.025) H 08/25/18 11:17 30 mg/dL (Neg-Trace) H 08/25/18 11:17 3-5 per hpf (0-3) H 08/25/18 11:17 Ur Squamous Epith Cells Many per lpf (None-Few) H 08/25/18 11:17 Fluid Appearance Slightly Hazy (Clear) A 08/30/18 Unknown Positive (Negative) A 08/22/18 15:20 Vancomycin Trough 13 mcg/mL (5-10) H 08/29/18 16:59 DETECTED (Not Detect) A 08/22/18 15:20 - Microbiology Findings Microbiology Findings: Microbiology, Last 48 Hours 08/30/18 Unknown Acid Fast Stain - Final Right Lower Lobe Lung 08/30/18 Unknown Respiratory Culture - Preliminary Right Lower Lobe Lung 08/30/18 Unknown Fungal Culture - Preliminary Right Lower Lobe Lung Culture is incubating. 08/25/18 09:01 Blood Culture - Final Peripheral Venipuncture No growth. Final report. 08/29/18 07:50 Urine Culture - Final Urine,[place] No growth. - Clinical Findings Intake & Output: Intake & Output 08/31/18 09/01/18 09/01/18 23:59 07:59 15:59 Intake Total 1560.02 / 4821.40 3047.6 / 3103.6 56 / 3103.6 Output Total 400 / 2125 1175 / 1175 Balance 1160.02 / 2696.40 1872.6 / 1928.6 56 / 1928.6 Consult Discharge Plan - Plan Referrals: NONE,PCP [Primary Care Provider] -
[2018-09-01 08:30] LABS: Hematocrit 34.6 % (35.3-44.9); Hemoglobin 10.4 g/dL (11.5-15.4); Mean Corpuscular HGB Conc 30.1 g/dL (31.6-35.5); Mean Corpuscular Hemoglobin 31.7 pg (28.0-33.3); Mean Corpuscular Volume 105.5 fL (83.0-100.0); Nucleated Red Blood Cells 0.2 /100 WBC (0); Platelet Count 202 K/mcL (140-400); Red Blood Count 3.28 M/mcL (3.82-4.97); Red Cell Distribution Width 15.3 % (11.5-14.5)
[2018-09-01] MEDS ORDERED: *HR* Midazolam HCl 2 MG/2 ML VIAL IVP ONE (08:32)
[2018-09-01 09:09] LABS: Lymphocytes # 1.6 K/mcL (0.6-4.6); Monocytes # 0.3 K/mcL (0.0-1.3)
[2018-09-01 09:10] LABS: Platelet Estimate Normal (Normal); Polychromasia 1+ (Not Present)
[2018-09-01 09:11] LABS: Basophilic Stippling 1+ (Not Present)
--- NOTE | 2018-09-01 11:47 | Event Note ---
Date of Encounter: 09/01/18 Time of Encounter: 11:30 Chart review completed. Alterations to medications for anxiety change by primary team. Patient remained sedated and intubated on ventilator, at this time. No family present at bedside. Palliative care will continue to follow at a distance. Primary nurse denies needs at this time.
[2018-09-01] MEDS: *HR* LORazepam 2 MG/ML VIAL IVP SCH ×2 (15:06→23:07)
[2018-09-01] MEDS: Furosemide 40 MG/4 ML VIAL IVP SCH (15:06)
[2018-09-01] MEDS: Norepinephrine 8 MG in D5% in Water 250 ML IVC SCH (16:44)
[2018-09-02] MEDS: FentaNYL (PF) 1,000 MCG in 0.9 % Sodium Chloride 80 ML IVC SCH ×4 (00:01→21:33)
[2018-09-02] MEDS: Dexmedetomidine HCl 400 MCG/100 ML MLS IVC SCH ×7 (02:32→22:36)
[2018-09-02] MEDS: Insulin Human Regular 100 UNIT in 0.9 % Sodium Chloride 100 ML IVC SCH ×2 (03:05→21:56)
[2018-09-02] MEDS: Levalbuterol Neb 0.63 MG/3 ML IH SCH ×6 (03:32→23:35)
[2018-09-02 04:33] LABS: Hematocrit 38.5 % (35.3-44.9); Hemoglobin 11.6 g/dL (11.5-15.4); Mean Corpuscular HGB Conc 30.1 g/dL (31.6-35.5); Mean Corpuscular Hemoglobin 31.3 pg (28.0-33.3); Mean Corpuscular Volume 103.8 fL (83.0-100.0); Nucleated Red Blood Cells 1.2 /100 WBC (0); Platelet Count 246 K/mcL (140-400); Red Blood Count 3.71 M/mcL (3.82-4.97); Red Cell Distribution Width 15.5 % (11.5-14.5)
[2018-09-02 04:44] LABS: INR 1.1; Prothrombin Time 12.7 Seconds (9.4-12.1)
[2018-09-02 04:46] LABS: Activated Partial Thrombo Time 22.5 Seconds (26.0-36.0)
[2018-09-02 04:48] LABS: BUN/Creatinine Ratio 59 (6-26); Blood Urea Nitrogen 22 mg/dL (6-20); Calcium 8.5 mg/dL (8.6-10.3); Carbon Dioxide 33 mEq/L (23-29); Chloride 106 mEq/L (98-107); Glucose 105 mg/dL (70-105); Osmolality,Calculated 302 (280-300); Potassium 3.7 mEq/L (3.5-5.1); Sodium 144 mEq/L (136-145); eGFR For Non-African Americans > 60 (> 60)
[2018-09-02 04:51] LABS: ABG Base Excess 10 mEq/L (-2 to 3); ABG HCO3 37 mEq/L (21-27); ABG Oxygen Saturation 89 % (95-98); ABG PCO2 60 mmHg (35-45); ABG PH 7.39 pH Units (7.32-7.45); ABG PO2 60 mmHg (85-104); ABG TCO2 39 mEq/L (20-26); Blood Gas Modality ASSIST CONTROL; Blood Gas PEEP 8 cm H2O; Blood Gas Respiration Rate 14; Blood Gas VT 550 cc
[2018-09-02 05:14] LABS: Basophils # 0.4 K/mcL (0.0-0.2); Eosinophils # 0.4 K/mcL (0.0-0.6); Lymphocytes # 4.4 K/mcL (0.6-4.6); Neutrophils # 13.9 K/mcL (1.6-8.9)
[2018-09-02] MEDS: *HR* Heparin 5,000 UNIT/ML VIAL SQ SCH ×3 (05:25→21:25)
[2018-09-02] MEDS: Metoclopramide 10 MG/2 ML VIAL IVP SCH ×4 (05:25→23:55)
[2018-09-02] MEDS: Artificial Tears SOLN 15 ML BOTTLE BOTH EYES SCH ×6 (05:26→23:55)
[2018-09-02] MEDS: Meropenem 1,000 MG in Water for inj. (sterile) 20 ML 20 ML IVP SCH ×3 (08:38→23:54)
[2018-09-02] MEDS: *HR* LORazepam 2 MG/ML VIAL IVP SCH ×5 (08:38→23:55)
[2018-09-02] MEDS: Chlorhexidine Rinse 15 ML MOUTHWASH MM SCH ×2 (08:38→21:24)
[2018-09-02] MEDS: Pantoprazole 40 MG VIAL IVP SCH (08:38)
[2018-09-02] MEDS: Lactulose Oral Soln 20 GM/30 ML UDC PO SCH ×2 (08:38→21:18)
[2018-09-02] MEDS: Clotrimazole 1% CRM 15 GM TUBE TP SCH ×2 (08:39→21:24)
[2018-09-02] MEDS: Bisacodyl 10 MG RECTAL SUPPOSITORY RC SCH (08:39)
[2018-09-02] MEDS: Furosemide 40 MG/4 ML VIAL IVP SCH ×2 (08:39→16:31)
--- NOTE | 2018-09-02 12:49 | Pulmonology Progress Note ---
Date of Encounter: 09/02/18 Time of Encounter: 07:00 Assessment and Plan (1) Acute respiratory failure with hypoxia and hypercapnia Current Visit: No Status: Acute Patient seen and examined at bedside Labs, radiology, chart personally reviewed. Below reflects my systems basis assessment and plan for this complex patient being managed in the intensive care unit [employer]OLDER: Multifactorial encephalopathy including sepsis and suspected ICU delirium she remains on sedation unfortunately is unable to be lifted because of agitation which drives up her heart rate will continue to sedate with propofol and fentanyl along with Precedex for goal Hallie of 3; Plan to titrate Seroquel twice a day and increase frequencey of scheduled Ativan and attempt to get off propofol Pulm: Acute on chronic hypoxic hypercapnic respiratory failure remains on vent persistent acceptable hypercarbia increase tidal volume because of obesity othe rwise acceptable gas exchange today she is not a candidate for spontaneous breathing trial because of encephalopathy. S/p Bronch 08/30 with some mucoid secretions in RML/RLL which were suctioned. Suspect PNA Cards: Atrial fibrillation with RVR rate controlled at this time however continu e to titrate david blocking as needed this is mediated large part from anxiety GI: GI prophylaxis given while on vent patient has ileus has resolved Nutrition: The patient has enteral nutrition which is been prescribed by dietary continue to advance to goal Renal: Hypernatremia resolved; UOP Monitored, Cont to Trend sCr and monitor Electrolytes. ID: Patient being treated for Enterobacter pneumonia had persistent leukocytosis and was switched to meropenem09/01 from Zosyn white count up slightly today remains afebrile cultures otherwise negative continue to monitor Heme/Onc: DVT prophylaxis given H&H monitored and stable platelets stable Endo: Glucose Monitored adequate glycemic coverage on insulin infusion will co ntinue to monitor Integ/MSK: Skin Care per routine ICU Nursing Protocol to prevent ulcers. Lines: All lines examined without evidence of infection : Dispo: We will continue to monitor in the ICU CODE: full code prognosis remains guarded to poor. I suspect agent would need tracheostomy placement which the family is decidedly against (2) Acute exacerbation of chronic obstructive airways disease Current Visit: Yes Status: Acute (3) Morbid obesity with BMI of 70 and over, adult Current Visit: No Status: Chronic (4) Atrial fibrillation Current Visit: No Status: Chronic Qualifiers: Atrial fibrillation type: chronic Qualified Code(s): I48.2 - Chronic atrial fibrillation (5) TYE (obstructive sleep apnea) Current Visit: No Status: Chronic (6) Acute diastolic (congestive) heart failure Current Visit: No Status: Acute (7) Pneumonia Current Visit: Yes Status: Acute Qualifiers: Pneumonia type: due to unspecified organism Laterality: unspecified laterality Lung location: unspecified part of lung Qualified Code(s): J18.9 - Pneumonia, unspecified organism (8) Goals of care, counseling/discussion Current Visit: Yes Status: Acute Subjective Principal diagnosis: acute exacerbation of COPD with pneumonia Interval history: Remains agitated once sedation is lifted. Hemodynamically stable except for periods of atrial fibrillation with RVR with rates as high as 200 off sedation Objective PUL Vital signs: Last Vital Signs Temp 99.6 F 09/02/18 12:34 Pulse 80 09/02/18 11:00 Resp 16 09/02/18 09:00 BP 74/48 09/02/18 09:00 Pulse Ox 95 09/02/18 09:00 General appearance: other (Sedated appears comfortable) Eyes: nonicteric ENT: other (Endotracheal tube noted satisfactory position) Auscultation: bilateral: diminished breath sounds Gastrointestinal: hypoactive bowel sounds, soft Integumentary: other (She has not noted skin breakdown and inguinal regions bilaterally underneath the pannus) Extremities: no cyanosis, pink and warm, pulses normal, edema Musculoskeletal: no deformities pupils equal and round, other (She does have spontaneous movements of all extremities) other (Sedated) Ventilator Settings Ventilator Settings: Ventilator Settings, Last 8 Hours Ventilator Tidal Volume 550 Setting Ventilator Tidal Volume 550 Setting Ventilator Tidal Volume 550 Setting Ventilator Tidal Volume 550 Setting Ventilator Tidal Volume 550 Setting Ventilator Tidal Volume 550 Setting Ventilator Tidal Volume 550 Setting Ventilator Respiratory Rate 14 Setting Ventilator Respiratory Rate 14 Setting Ventilator Respiratory Rate 14 Setting Ventilator Respiratory Rate 14 Setting Ventilator Respiratory Rate 14 Setting Ventilator Respiratory Rate 14 Setting Ventilator Respiratory Rate 14 Setting Actual Respiratory Rate 16 Actual Respiratory Rate 16 Actual Respiratory Rate 18 Actual Respiratory Rate 18 Actual Respiratory Rate 17 Actual Respiratory Rate 24 Positive End Expiratory 8 Pressure Positive End Expiratory 8 Pressure Positive End Expiratory 8 Pressure Positive End Expiratory 8 Pressure Positive End Expiratory 8 Pressure Positive End Expiratory 8 Pressure Positive End Expiratory 8 Pressure Peak Inspiratory Airway 33 Pressure Peak Inspiratory Airway 32 Pressure Peak Inspiratory Airway 31 Pressure Peak Inspiratory Airway 35 Pressure Peak Inspiratory Airway 35 Pressure Results - Laboratory Findings CBC and BMP: 09/02/18 04:13 09/02/18 04:13 ABG ABG pH 7.39 pH Units (7.32-7.45) 09/02/18 04:49 ABG pCO2 60 mmHg (35-45) H 09/02/18 04:49 ABG pO2 60 mmHg (85-104) L 09/02/18 04:49 ABG O2 Saturation 89 % (95-98) L 09/02/18 04:49 PT/INR, D-dimer PT 12.7 Seconds (9.4-12.1) H 09/02/18 04:13 Abnormal lab findings: Abnormal lab results WBC 19.9 K/mcL (4.3-11.1) H 09/02/18 04:13 RBC 3.71 M/mcL (3.82-4.97) L 09/02/18 04:13 Hgb 10.4 g/dL (11.5-15.4) L 09/01/18 04:22 Hct 34.6 % (35.3-44.9) L 09/01/18 04:22 MCV 103.8 fL (83.0-100.0) H 09/02/18 04:13 MCHC 30.1 g/dL (31.6-35.5) L 09/02/18 04:13 RDW 15.5 % (11.5-14.5) H 09/02/18 04:13 16.0 % (0-4) H 08/24/18 03:45 2.0 % (0) H 08/24/18 03:45 4.0 % (0) H 09/02/18 04:13 13.9 K/mcL (1.6-8.9) H 09/02/18 04:13 0.3 K/mcL (0.6-4.6) L 08/30/18 04:56 0.4 K/mcL (0.0-0.2) H 09/02/18 04:13 Nucleated RBCs/100 WBC 1.2 /100 WBC (0) H 09/02/18 04:13 1+ (Not Present) A 09/01/18 04:22 Present (Not Present) A 08/31/18 08:32 1+ (Not Present) A 09/01/18 04:22 1+ (Not Present) A 08/24/18 03:45 Present (Not Present) A 08/24/18 03:45 PT 12.7 Seconds (9.4-12.1) H 09/02/18 04:13 APTT 22.5 Seconds (26.0-36.0) L 09/02/18 04:13 ABG pH 7.31 pH Units (7.32-7.45) L 08/30/18 04:31 ABG pCO2 60 mmHg (35-45) H 09/02/18 04:49 ABG pO2 60 mmHg (85-104) L 09/02/18 04:49 ABG HCO3 37 mEq/L (21-27) H 09/02/18 04:49 ABG Total CO2 39 mEq/L (20-26) H 09/02/18 04:49 ABG O2 Saturation 89 % (95-98) L 09/02/18 04:49 ABG Base Excess 10 mEq/L (-2 to 3) H 09/02/18 04:49 Sodium 147 mEq/L (136-145) H 09/01/18 04:22 Potassium 3.4 mEq/L (3.5-5.1) L 09/01/18 04:22 Chloride 109 mEq/L (98-107) H 09/01/18 04:22 Carbon Dioxide 33 mEq/L (23-29) H 09/02/18 04:13 BUN 22 mg/dL (6-20) H 09/02/18 04:13 0.37 mg/dL (0.60-1.20) L 09/02/18 04:13 59 (6-26) H 09/02/18 04:13 Glucose 153 mg/dL (70-105) H 09/01/18 04:22 POC Glucose 204 mg/dL (70-99) H 09/02/18 12:28 302 (280-300) H 09/02/18 04:13 Calcium 8.5 mg/dL (8.6-10.3) L 09/02/18 04:13 Ur Specific [place] 1.027 (1.010-1.025) H 08/25/18 11:17 30 mg/dL (Neg-Trace) H 08/25/18 11:17 3-5 per hpf (0-3) H 08/25/18 11:17 Ur Squamous Epith Cells Many per lpf (None-Few) H 08/25/18 11:17 Fluid Appearance Slightly Hazy (Clear) A 08/30/18 Unknown Positive (Negative) A 08/22/18 15:20 Vancomycin Trough 13 mcg/mL (5-10) H 08/29/18 16:59 DETECTED (Not Detect) A 08/22/18 15:20 - Microbiology Findings Microbiology Findings: Microbiology, Last 48 Hours 08/30/18 Unknown Respiratory Culture - Final Right Lower Lobe Lung 08/27/18 11:39 Blood Culture - Final Peripheral Venipuncture No growth. Final report. 08/30/18 Unknown Acid Fast Stain - Final Right Lower Lobe Lung - Clinical Findings Intake & Output: Intake & Output 09/01/18 09/02/18 09/02/18 23:59 07:59 15:59 Intake Total 1672.5 / 6000.1 1304.5 / 1930.5 626 / 1930.5 Output Total 2525 / 4550 400 / 1650 1250 / 1650 Balance -852.5 / 1450.1 904.5 / 280.5 -624 / 280.5 Weight 176.4 kg Consult Discharge Plan - Plan Referrals: NONE,PCP [Primary Care Provider] -
[2018-09-02 15:34] LABS: Influenza A PCR Body Fluid NOT DETECTED; Influenza B PCR Body Fluid NOT DETECTED; RVP Body Fluid Source BAL
[2018-09-03] MEDS: Dexmedetomidine HCl 400 MCG/100 ML MLS IVC SCH ×5 (01:54→17:30)
[2018-09-03] MEDS: Levalbuterol Neb 0.63 MG/3 ML IH SCH ×4 (03:42→15:52)
[2018-09-03 03:59] LABS: Basophils % 0.1 %; Eosinophils # 0.1 K/mcL (0.0-0.6); Eosinophils % 0.5 %; Hematocrit 34.5 % (35.3-44.9); Hemoglobin 10.5 g/dL (11.5-15.4); Immature Granulocytes % 13.8 % (0-4); Lymphocytes # 1.6 K/mcL (0.6-4.6); Lymphocytes % 10.3 %; Mean Corpuscular HGB Conc 30.4 g/dL (31.6-35.5); Mean Corpuscular Hemoglobin 31.3 pg (28.0-33.3); Mean Corpuscular Volume 102.7 fL (83.0-100.0); Mean Platelet Volume 10.8 fL (9.4-12.4); Monocytes # 0.7 K/mcL (0.0-1.3); Monocytes % 4.4 %; Nucleated Red Blood Cells 1.3 /100 WBC (0); Platelet Count 197 K/mcL (140-400); Red Blood Count 3.36 M/mcL (3.82-4.97); Red Cell Distribution Width 15.8 % (11.5-14.5); Segmented Neutrophils % 70.9 %
[2018-09-03 04:17] LABS: BUN/Creatinine Ratio 57 (6-26); Blood Urea Nitrogen 21 mg/dL (6-20); Calcium 8.1 mg/dL (8.6-10.3); Carbon Dioxide 37 mEq/L (23-29); Chloride 105 mEq/L (98-107); Glucose 132 mg/dL (70-105); Osmolality,Calculated 301 (280-300); Potassium 3.3 mEq/L (3.5-5.1); Sodium 143 mEq/L (136-145); eGFR For Non-African Americans > 60 (> 60)
[2018-09-03 04:26] LABS: Platelet Estimate Normal (Normal)
[2018-09-03] MEDS: Metoclopramide 10 MG/2 ML VIAL IVP SCH ×3 (04:45→16:33)
[2018-09-03] MEDS: *HR* Heparin 5,000 UNIT/ML VIAL SQ SCH (04:45)
[2018-09-03] MEDS: *HR* LORazepam 2 MG/ML VIAL IVP SCH ×2 (04:45→07:43)
[2018-09-03 04:59] LABS: ABG Base Excess 13 mEq/L (-2 to 3); ABG HCO3 39 mEq/L (21-27); ABG Oxygen Saturation 92 % (95-98); ABG PCO2 59 mmHg (35-45); ABG PH 7.43 pH Units (7.32-7.45); ABG PO2 63 mmHg (85-104); ABG TCO2 41 mEq/L (20-26); Blood Gas Modality ASSIST CONTROL; Blood Gas PEEP 8 cm H2O; Blood Gas Respiration Rate 14; Blood Gas VT 550 cc
[2018-09-03] MEDS: Artificial Tears SOLN 15 ML BOTTLE BOTH EYES SCH ×4 (05:07→16:15)
[2018-09-03] MEDS: FentaNYL (PF) 1,000 MCG in 0.9 % Sodium Chloride 80 ML IVC SCH ×2 (05:47→12:30)
[2018-09-03] MEDS: Norepinephrine 8 MG in D5% in Water 250 ML IVC SCH (07:28)
[2018-09-03] MEDS: Furosemide 40 MG/4 ML VIAL IVP SCH ×2 (07:43→16:33)
[2018-09-03] MEDS: Meropenem 1,000 MG in Water for inj. (sterile) 20 ML 20 ML IVP SCH ×2 (07:43→16:33)
[2018-09-03] MEDS: Pantoprazole 40 MG VIAL IVP SCH (07:43)
[2018-09-03] MEDS: Bisacodyl 10 MG RECTAL SUPPOSITORY RC SCH (07:44)
[2018-09-03] MEDS: Chlorhexidine Rinse 15 ML MOUTHWASH MM SCH (07:44)
[2018-09-03] MEDS: Lactulose Oral Soln 20 GM/30 ML UDC PO SCH (07:44)
[2018-09-03] MEDS: Clotrimazole 1% CRM 15 GM TUBE TP SCH (07:44)
[2018-09-03] MEDS ORDERED: *HR* LORazepam 2 MG/ML VIAL IVP PRN ×2 (08:04→18:24)
--- NOTE | 2018-09-03 09:55 | Pulmonology Progress Note ---
<Nathan Quiñones - Last Filed: 09/03/18 18:18> Date of Encounter: 09/03/18 Time of Encounter: 09:55 Assessment and Plan (1) Acute on chronic respiratory failure with hypoxia and hypercapnia Current Visit: Yes Status: Acute Respiratory failure secondary to pneumonia and/or COPD exacerbation and or encephalopathy Decision was made with family to transition patient to DNR/CC and she was transferred to palliative unit Patient was extubated and started on BiPAP with considerable respiratory distress, Comfort Care measures put in place for respiratory distress (2) Sepsis Current Visit: Yes Status: Suspected Comfort Care Qualifiers: Sepsis type: sepsis due to unspecified organism Qualified Code(s): A41.9 - Sepsis, unspecified organism (3) COPD (chronic obstructive pulmonary disease) Current Visit: Yes Status: Acute Supplemental oxygen Qualifiers: COPD type: unspecified COPD Qualified Code(s): J44.9 - Chronic obstructive pulmonary disease, unspecified (4) Chronic a-fib Current Visit: Yes Status: Chronic Comfort Care (5) Pneumonia Current Visit: Yes Status: Suspected Comfort Care Qualifiers: Pneumonia type: due to methicillin-resistant Staphylococcus aureus (MRSA) Laterality: unspecified laterality Lung location: unspecified part of lung Qualified Code(s): J15.212 - Pneumonia due to Methicillin resistant Staphylococcus aureus (6) Congestive heart failure Current Visit: Yes Status: Chronic Comfort Care Qualifiers: Heart failure type: unspecified Heart failure chronicity: chronic Qualified Code(s): I50.9 - Heart failure, unspecified (7) Diabetes mellitus Current Visit: No Status: Chronic Qualifiers: Diabetes mellitus type: type 2 Diabetes mellitus 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 Patient was extubated and decision was made to transfer to palliative unit. Objective PUL Vital signs: Last Vital Signs Temp 100.6 F H 09/03/18 08:37 Pulse 87 09/03/18 08:00 Resp 20 09/03/18 08:00 BP 93/66 09/03/18 08:00 Pulse Ox 94 09/03/18 08:00 General appearance: agitated, appears uncomfortable Eyes: icteric Neck: supple Effort: very labored (Accessory muscle use) Auscultation: bilateral: rhonchi Cardiovascular: other (Unable to auscultate secondary to body habitus and respiratory sounds, however monitor indicates atrial fibrillation with tachycardia) Gastrointestinal: absent bowel sounds, soft (Morbidly obese) Integumentary: other (Intertriginous dermatitis present diffusely) Extremities: edema Musculoskeletal: no deformities unable to assess due to mental status Ventilator Settings Ventilator Settings: Ventilator Settings, Last 8 Hours Ventilator Tidal Volume 550 Setting Ventilator Tidal Volume 600 Setting Ventilator Tidal Volume 600 Setting Ventilator Tidal Volume 550 Setting Ventilator Tidal Volume 550 Setting Ventilator Tidal Volume 550 Setting Ventilator Tidal Volume 550 Setting Ventilator Tidal Volume 550 Setting Ventilator Tidal Volume 550 Setting Ventilator Tidal Volume 550 Setting Ventilator Tidal Volume 550 Setting Ventilator Tidal Volume 550 Setting Ventilator Respiratory Rate 14 Setting Ventilator Respiratory Rate 10 Setting Ventilator Respiratory Rate 10 Setting Ventilator Respiratory Rate 14 Setting Ventilator Respiratory Rate 14 Setting Ventilator Respiratory Rate 14 Setting Ventilator Respiratory Rate 14 Setting Ventilator Respiratory Rate 14 Setting Ventilator Respiratory Rate 14 Setting Ventilator Respiratory Rate 14 Setting Ventilator Respiratory Rate 14 Setting Ventilator Respiratory Rate 14 Setting Actual Respiratory Rate 21 Actual Respiratory Rate 18 Actual Respiratory Rate 20 Actual Respiratory Rate 22 Actual Respiratory Rate 22 Actual Respiratory Rate 20 Actual Respiratory Rate 19 Actual Respiratory Rate 18 Actual Respiratory Rate 18 Positive End Expiratory 8 Pressure Positive End Expiratory 8 Pressure Positive End Expiratory 8 Pressure Positive End Expiratory 8 Pressure Positive End Expiratory 8 Pressure Positive End Expiratory 8 Pressure Positive End Expiratory 8 Pressure Positive End Expiratory 8 Pressure Positive End Expiratory 8 Pressure Positive End Expiratory 8 Pressure Positive End Expiratory 8 Pressure Peak Inspiratory Airway 39 Pressure Peak Inspiratory Airway 42 Pressure Peak Inspiratory Airway 36 Pressure Peak Inspiratory Airway 36 Pressure Peak Inspiratory Airway 36 Pressure Peak Inspiratory Airway 34 Pressure Peak Inspiratory Airway 34 Pressure Peak Inspiratory Airway 36 Pressure Peak Inspiratory Airway 36 Pressure Results - Laboratory Findings CBC and BMP: 09/03/18 03:36 09/03/18 03:36 ABG ABG pH 7.43 pH Units (7.32-7.45) 09/03/18 04:55 ABG pCO2 59 mmHg (35-45) H 09/03/18 04:55 ABG pO2 63 mmHg (85-104) L 09/03/18 04:55 ABG O2 Saturation 92 % (95-98) L 09/03/18 04:55 PT/INR, D-dimer PT 12.7 Seconds (9.4-12.1) H 09/02/18 04:13 Abnormal lab findings: Abnormal lab results WBC 15.5 K/mcL (4.3-11.1) H 09/03/18 03:36 RBC 3.36 M/mcL (3.82-4.97) L 09/03/18 03:36 Hgb 10.5 g/dL (11.5-15.4) L 09/03/18 03:36 Hct 34.5 % (35.3-44.9) L 09/03/18 03:36 MCV 102.7 fL (83.0-100.0) H 09/03/18 03:36 MCHC 30.4 g/dL (31.6-35.5) L 09/03/18 03:36 RDW 15.8 % (11.5-14.5) H 09/03/18 03:36 Immature Gran % 13.8 % (0-4) H 09/03/18 03:36 16.0 % (0-4) H 08/24/18 03:45 2.0 % (0) H 08/24/18 03:45 4.0 % (0) H 09/02/18 04:13 11.0 K/mcL (1.6-8.9) H 09/03/18 03:36 0.3 K/mcL (0.6-4.6) L 08/30/18 04:56 0.4 K/mcL (0.0-0.2) H 09/02/18 04:13 Nucleated RBCs/100 WBC 1.3 /100 WBC (0) H 09/03/18 03:36 1+ (Not Present) A 09/01/18 04:22 Present (Not Present) A 08/31/18 08:32 1+ (Not Present) A 09/01/18 04:22 1+ (Not Present) A 08/24/18 03:45 Present (Not Present) A 08/24/18 03:45 PT 12.7 Seconds (9.4-12.1) H 09/02/18 04:13 APTT 22.5 Seconds (26.0-36.0) L 09/02/18 04:13 ABG pH 7.31 pH Units (7.32-7.45) L 08/30/18 04:31 ABG pCO2 59 mmHg (35-45) H 09/03/18 04:55 ABG pO2 63 mmHg (85-104) L 09/03/18 04:55 ABG HCO3 39 mEq/L (21-27) H 09/03/18 04:55 ABG Total CO2 41 mEq/L (20-26) H 09/03/18 04:55 ABG O2 Saturation 92 % (95-98) L 09/03/18 04:55 ABG Base Excess 13 mEq/L (-2 to 3) H 09/03/18 04:55 Sodium 147 mEq/L (136-145) H 09/01/18 04:22 Potassium 3.3 mEq/L (3.5-5.1) L 09/03/18 03:36 Chloride 109 mEq/L (98-107) H 09/01/18 04:22 Carbon Dioxide 37 mEq/L (23-29) H 09/03/18 03:36 BUN 21 mg/dL (6-20) H 09/03/18 03:36 0.37 mg/dL (0.60-1.20) L 09/03/18 03:36 57 (6-26) H 09/03/18 03:36 Glucose 132 mg/dL (70-105) H 09/03/18 03:36 POC Glucose 179 mg/dL (70-99) H 09/03/18 09:40 301 (280-300) H 09/03/18 03:36 Calcium 8.1 mg/dL (8.6-10.3) L 09/03/18 03:36 Ur Specific [place] 1.027 (1.010-1.025) H 08/25/18 11:17 30 mg/dL (Neg-Trace) H 08/25/18 11:17 3-5 per hpf (0-3) H 08/25/18 11:17 Ur Squamous Epith Cells Many per lpf (None-Few) H 08/25/18 11:17 Fluid Appearance Slightly Hazy (Clear) A 08/30/18 Unknown Positive (Negative) A 08/22/18 15:20 Vancomycin Trough 13 mcg/mL (5-10) H 08/29/18 16:59 DETECTED (Not Detect) A 08/22/18 15:20 - Microbiology Findings Microbiology Findings: Microbiology, Last 48 Hours 08/29/18 07:45 Blood Culture - Final Peripheral Venipuncture No growth. Final report. 08/29/18 07:38 Blood Culture - Final Peripheral Venipuncture No growth. Final report. 08/30/18 Unknown Respiratory Culture - Final Right Lower Lobe Lung 08/27/18 11:39 Blood Culture - Final Peripheral Venipuncture No growth. Final report. - Clinical Findings Intake & Output: Intake & Output 09/02/18 09/03/18 09/03/18 23:59 07:59 15:59 Intake Total 1252.0 / 3953.5 1100 / 1411 311 / 1411 Output Total 2600 / 4250 100 / 225 125 / 225 Balance -1348.0 / -296.5 1000 / 1186 186 / 1186 Weight 177.2 kg Consult Discharge Plan - Plan Referrals: NONE,PCP [Primary Care Provider] - <Walter Interiano M - Last Filed: 09/03/18 22:06> Date of Encounter: 09/03/18 Objective PUL Vital signs: Last Vital Signs Temp 100.6 F H 09/03/18 08:37 Pulse 87 09/03/18 08:00 Resp 20 09/03/18 08:00 BP 93/66 09/03/18 08:00 Pulse Ox 94 09/03/18 08:00 Ventilator Settings Ventilator Settings: Ventilator Settings, Last 8 Hours Ventilator Tidal Volume 550 Setting Ventilator Tidal Volume 600 Setting Ventilator Tidal Volume 600 Setting Ventilator Tidal Volume 550 Setting Ventilator Tidal Volume 550 Setting Ventilator Tidal Volume 550 Setting Ventilator Tidal Volume 550 Setting Ventilator Tidal Volume 550 Setting Ventilator Tidal Volume 550 Setting Ventilator Tidal Volume 550 Setting Ventilator Tidal Volume 550 Setting Ventilator Respiratory Rate 14 Setting Ventilator Respiratory Rate 10 Setting Ventilator Respiratory Rate 10 Setting Ventilator Respiratory Rate 14 Setting Ventilator Respiratory Rate 14 Setting Ventilator Respiratory Rate 14 Setting Ventilator Respiratory Rate 14 Setting Ventilator Respiratory Rate 14 Setting Ventilator Respiratory Rate 14 Setting Ventilator Respiratory Rate 14 Setting Ventilator Respiratory Rate 14 Setting Actual Respiratory Rate 21 Actual Respiratory Rate 18 Actual Respiratory Rate 20 Actual Respiratory Rate 22 Actual Respiratory Rate 22 Actual Respiratory Rate 20 Actual Respiratory Rate 19 Actual Respiratory Rate 18 Positive End Expiratory 8 Pressure Positive End Expiratory 8 Pressure Positive End Expiratory 8 Pressure Positive End Expiratory 8 Pressure Positive End Expiratory 8 Pressure Positive End Expiratory 8 Pressure Positive End Expiratory 8 Pressure Positive End Expiratory 8 Pressure Positive End Expiratory 8 Pressure Positive End Expiratory 8 Pressure Peak Inspiratory Airway 39 Pressure Peak Inspiratory Airway 42 Pressure Peak Inspiratory Airway 36 Pressure Peak Inspiratory Airway 36 Pressure Peak Inspiratory Airway 36 Pressure Peak Inspiratory Airway 34 Pressure Peak Inspiratory Airway 34 Pressure Peak Inspiratory Airway 36 Pressure Results - Laboratory Findings CBC and BMP: 09/03/18 03:36 09/03/18 03:36 ABG ABG pH 7.43 pH Units (7.32-7.45) 09/03/18 04:55 ABG pCO2 59 mmHg (35-45) H 09/03/18 04:55 ABG pO2 63 mmHg (85-104) L 09/03/18 04:55 ABG O2 Saturation 92 % (95-98) L 09/03/18 04:55 PT/INR, D-dimer PT 12.7 Seconds (9.4-12.1) H 09/02/18 04:13 Abnormal lab findings: Abnormal lab results WBC 15.5 K/mcL (4.3-11.1) H 09/03/18 03:36 RBC 3.36 M/mcL (3.82-4.97) L 09/03/18 03:36 Hgb 10.5 g/dL (11.5-15.4) L 09/03/18 03:36 Hct 34.5 % (35.3-44.9) L 09/03/18 03:36 MCV 102.7 fL (83.0-100.0) H 09/03/18 03:36 MCHC 30.4 g/dL (31.6-35.5) L 09/03/18 03:36 RDW 15.8 % (11.5-14.5) H 09/03/18 03:36 Immature Gran % 13.8 % (0-4) H 09/03/18 03:36 16.0 % (0-4) H 08/24/18 03:45 2.0 % (0) H 08/24/18 03:45 4.0 % (0) H 09/02/18 04:13 11.0 K/mcL (1.6-8.9) H 09/03/18 03:36 0.3 K/mcL (0.6-4.6) L 08/30/18 04:56 0.4 K/mcL (0.0-0.2) H 09/02/18 04:13 Nucleated RBCs/100 WBC 1.3 /100 WBC (0) H 09/03/18 03:36 1+ (Not Present) A 09/01/18 04:22 Present (Not Present) A 08/31/18 08:32 1+ (Not Present) A 09/01/18 04:22 1+ (Not Present) A 08/24/18 03:45 Present (Not Present) A 08/24/18 03:45 PT 12.7 Seconds (9.4-12.1) H 09/02/18 04:13 APTT 22.5 Seconds (26.0-36.0) L 09/02/18 04:13 ABG pH 7.31 pH Units (7.32-7.45) L 08/30/18 04:31 ABG pCO2 59 mmHg (35-45) H 09/03/18 04:55 ABG pO2 63 mmHg (85-104) L 09/03/18 04:55 ABG HCO3 39 mEq/L (21-27) H 09/03/18 04:55 ABG Total CO2 41 mEq/L (20-26) H 09/03/18 04:55 ABG O2 Saturation 92 % (95-98) L 09/03/18 04:55 ABG Base Excess 13 mEq/L (-2 to 3) H 09/03/18 04:55 Sodium 147 mEq/L (136-145) H 09/01/18 04:22 Potassium 3.3 mEq/L (3.5-5.1) L 09/03/18 03:36 Chloride 109 mEq/L (98-107) H 09/01/18 04:22 Carbon Dioxide 37 mEq/L (23-29) H 09/03/18 03:36 BUN 21 mg/dL (6-20) H 09/03/18 03:36 0.37 mg/dL (0.60-1.20) L 09/03/18 03:36 57 (6-26) H 09/03/18 03:36 Glucose 132 mg/dL (70-105) H 09/03/18 03:36 POC Glucose 179 mg/dL (70-99) H 09/03/18 09:40 301 (280-300) H 09/03/18 03:36 Calcium 8.1 mg/dL (8.6-10.3) L 09/03/18 03:36 Ur Specific [place] 1.027 (1.010-1.025) H 08/25/18 11:17 30 mg/dL (Neg-Trace) H 08/25/18 11:17 3-5 per hpf (0-3) H 08/25/18 11:17 Ur Squamous Epith Cells Many per lpf (None-Few) H 08/25/18 11:17 Fluid Appearance Slightly Hazy (Clear) A 08/30/18 Unknown Positive (Negative) A 08/22/18 15:20 Vancomycin Trough 13 mcg/mL (5-10) H 08/29/18 16:59 DETECTED (Not Detect) A 08/22/18 15:20 - Microbiology Findings Microbiology Findings: Microbiology, Last 48 Hours 08/29/18 07:45 Blood Culture - Final Peripheral Venipuncture No growth. Final report. 08/29/18 07:38 Blood Culture - Final Peripheral Venipuncture No growth. Final report. 08/30/18 Unknown Respiratory Culture - Final Right Lower Lobe Lung 08/27/18 11:39 Blood Culture - Final Peripheral Venipuncture No growth. Final report. - Clinical Findings Intake & Output: Intake & Output 09/02/18 09/03/18 09/03/18 23:59 07:59 15:59 Intake Total 1252.0 / 3953.5 1100 / 1411 311 / 1411 Output Total 2600 / 4250 100 / 225 125 / 225 Balance -1348.0 / -296.5 1000 / 1186 186 / 1186 Weight 177.2 kg - Attending Attestation I examined this patient and my medical decision-making was reviewed with the Resident Physician. I agree with the documented findings, disposition and treatment plan as described except to the extent set forth below. Patient seen and examined. Labs, radiology, chart personally reviewed. Agree with resident's history and physical, assessment, plan with following comments: MANAGER COMMUNICATION: Patient doesn't follows commands, Patient is on schedule Ativan and PRN Pulmonary: Acceptable oxygenation and still not optimal ventilation and changed vent setting with some improvement in PEEPi, however due to her advance lung disease, I feel this is probably her condition and not sure if she will improve. I had discussed with son and rest of the family about her condition and according to the son, she doesn't want to live like this and we talked about extubation and no plan for any trach/PEG and we agreed to extubate her to BiPAP as there is evidence to support that and they all agreed with the plan and no re-intubation. Cardiovascular: Patient relatively stable GI: Nutrition per dietary and GI prophylaxis per routine Heme: DVT prophylaxis per routine ID: Continue antibiotics and plan to de-escalation Renal; urine out put and renal function reviewed Endorcine: blood glucose is monitored Lines: all lines checked and no evidence of infections Skin: skin care to prevent pressure ulcers per nursing routine care. I spent 32 min of Critical Care time with this patient. It involved decision making of high complexity to assess, manipulate, and support vital organ system failure and/or to prevent further life threatening deterioration of the patient's condition. The time involved in the performance of separately reportable procedures was not counted toward critical care time.
[2018-09-03 10:08] LABS: RSV PCR Body Fluid NOT DETECTED
[2018-09-03 12:45] LABS: HSV Source BAL
--- NOTE | 2018-09-03 14:08 | Palliative Progress Note ---
Date of Encounter: 09/03/18 Time of Encounter: 14:00 - Assessment and plan (1) Dyspnea Current Visit: Yes Status: Acute Assessment and plan: Remains on vent - will likely be extubated this afternoon to bipap. NOt to be reintubated. If does poorly, recommend starting low dose opioids for breathlessness. (2) Constipation Current Visit: Yes Status: Acute Assessment and plan: Resolved - having BM's and was tolerating tube feeding Qualifiers: Constipation type: slow transit constipation Qualified Code(s): K59.01 - Slow transit constipation (3) Goals of care, counseling/discussion Current Visit: Yes Status: Acute Assessment and plan: Discussed with son Shayan via telephone, and he did arrive to hospital. Dr. Interiano and Dr. Quiñones and I have all spoke with son as well as patient's daughter and brother regarding goals of care. Son maintains that patient would not want tracheostomy. Discussed code status after extubation, and they do not want patient to be reintubated or resusciatated. Code status transitioned to DNR/DNI. If patient does poorly, will likely transition to comfort care. Will continue to follow closely. (4) Acute and chronic respiratory failure Current Visit: Yes Status: Acute Qualifiers: Respiratory failure complication: hypoxia and hypercapnia Qualified Code(s): J96.21 - Acute and chronic respiratory failure with hypoxia; J96.22 - Acute and chronic respiratory failure with hypercapnia (5) Pulmonary edema Current Visit: No Status: Acute Qualifiers: Chronicity: acute Qualified Code(s): J81.0 - Acute pulmonary edema (6) Palliative care encounter Current Visit: Yes Status: Acute - Time Spent With Patient Total time spent is greater than 50% in coordination of care (as documented) at patient's floor/unit and/or counseling patient: - Subjective Interval history: Patient remains sedated on vent. Primary nurse weaning sedation down as will l ikely be extubated later this afternoon. Remains hypotensive. WBC 15.5. - Constitutional Vitals: Abnormal lab results WBC 15.5 K/mcL (4.3-11.1) H 09/03/18 03:36 RBC 3.36 M/mcL (3.82-4.97) L 09/03/18 03:36 Hgb 10.5 g/dL (11.5-15.4) L 09/03/18 03:36 Hct 34.5 % (35.3-44.9) L 09/03/18 03:36 MCV 102.7 fL (83.0-100.0) H 09/03/18 03:36 MCHC 30.4 g/dL (31.6-35.5) L 09/03/18 03:36 RDW 15.8 % (11.5-14.5) H 09/03/18 03:36 Immature Gran % 13.8 % (0-4) H 09/03/18 03:36 16.0 % (0-4) H 08/24/18 03:45 2.0 % (0) H 08/24/18 03:45 4.0 % (0) H 09/02/18 04:13 11.0 K/mcL (1.6-8.9) H 09/03/18 03:36 0.3 K/mcL (0.6-4.6) L 08/30/18 04:56 0.4 K/mcL (0.0-0.2) H 09/02/18 04:13 Nucleated RBCs/100 WBC 1.3 /100 WBC (0) H 09/03/18 03:36 1+ (Not Present) A 09/01/18 04:22 Present (Not Present) A 08/31/18 08:32 1+ (Not Present) A 09/01/18 04:22 1+ (Not Present) A 08/24/18 03:45 Present (Not Present) A 08/24/18 03:45 PT 12.7 Seconds (9.4-12.1) H 09/02/18 04:13 APTT 22.5 Seconds (26.0-36.0) L 09/02/18 04:13 ABG pH 7.31 pH Units (7.32-7.45) L 08/30/18 04:31 ABG pCO2 59 mmHg (35-45) H 09/03/18 04:55 ABG pO2 63 mmHg (85-104) L 09/03/18 04:55 ABG HCO3 39 mEq/L (21-27) H 09/03/18 04:55 ABG Total CO2 41 mEq/L (20-26) H 09/03/18 04:55 ABG O2 Saturation 92 % (95-98) L 09/03/18 04:55 ABG Base Excess 13 mEq/L (-2 to 3) H 09/03/18 04:55 Sodium 147 mEq/L (136-145) H 09/01/18 04:22 Potassium 3.3 mEq/L (3.5-5.1) L 09/03/18 03:36 Chloride 109 mEq/L (98-107) H 09/01/18 04:22 Carbon Dioxide 37 mEq/L (23-29) H 09/03/18 03:36 BUN 21 mg/dL (6-20) H 09/03/18 03:36 0.37 mg/dL (0.60-1.20) L 09/03/18 03:36 57 (6-26) H 09/03/18 03:36 Glucose 132 mg/dL (70-105) H 09/03/18 03:36 POC Glucose 189 mg/dL (70-99) H 09/03/18 13:48 301 (280-300) H 09/03/18 03:36 Calcium 8.1 mg/dL (8.6-10.3) L 09/03/18 03:36 Ur Specific [facility] 1.027 (1.010-1.025) H 08/25/18 11:17 30 mg/dL (Neg-Trace) H 08/25/18 11:17 3-5 per hpf (0-3) H 08/25/18 11:17 Ur Squamous Epith Cells Many per lpf (None-Few) H 08/25/18 11:17 Fluid Appearance Slightly Hazy (Clear) A 08/30/18 Unknown Positive (Negative) A 08/22/18 15:20 Vancomycin Trough 13 mcg/mL (5-10) H 08/29/18 16:59 DETECTED (Not Detect) A 08/22/18 15:20 General appearance: Present: no acute distress - Respiratory Respiratory exam: Present: decreased breath sounds, CTAB - Cardiovascular Cardiovascular exam: Present: tachycardia - GI/Abdominal GI/Abdominal exam: Present: normal bowel sounds, soft - Additional comments: Leigh with clear yellow urine - Extremities Exam Additional comments: generalized edema all extremities - Neurological Exam Additional comments: Remains sedated on vent. - Skin Skin exam: Present: dry, pallor, warm Palliative Quality Palliative Quality: Screen for Code Status: Yes, Screen for Goals of Care: Yes, Screen for Pain: Yes, If Pain Regimen Started, Initiate Bowel Regimen: Yes, Screen for Nausea/Vomitting: Yes Code Status: 08/22/18 14:41 Resuscitation Status: Active [RES] Routine Comment: Resuscitation Status: Full Code 09/03/18 14:05 DNR [Resuscitation Status: Active] [RES] Routine Comment: Resuscitation Status: [id number] - Labs CBC & Chem 7: 09/03/18 03:36 09/03/18 03:36 Labs: Laboratory Results - last 24 hr 08/30/18 09/02/18 09/02/18 Unknown 14:20 15:12 WBC RBC Hgb Hct MCV MCH MCHC RDW Plt Count MPV Immature Gran % Seg Neutrophils % Lymphocytes % Monocytes % Eosinophils % Basophils % Neutrophils # Lymphocytes # Monocytes # Eosinophils # Basophils # Nucleated RBCs/100 WBC Platelet Estimate Sample Site ABG pH ABG pCO2 ABG pO2 ABG HCO3 ABG Total CO2 ABG O2 Saturation ABG Base Excess Respiration Rate O2 Delivery Device Blood Gas Modality Inspired O2 Tidal Volume PEEP Sodium Potassium Chloride Carbon Dioxide BUN Creatinine Est GFR ( Amer) Est GFR (Non-Af Amer) BUN/Creatinine Ratio Glucose POC Glucose 157 H 139 H Calculated Osmolality Calcium Magnesium Fluid Source BAL Influenza Type A (PCR) NOT DETECTED Influenza Type B (PCR) NOT DETECTED RSV (PCR) NOT DETECTED 09/02/18 09/02/18 09/02/18 16:06 18:30 18:55 WBC RBC Hgb Hct MCV MCH MCHC RDW Plt Count MPV Immature Gran % Seg Neutrophils % Lymphocytes % Monocytes % Eosinophils % Basophils % Neutrophils # Lymphocytes # Monocytes # Eosinophils # Basophils # Nucleated RBCs/100 WBC Platelet Estimate Sample Site ABG pH ABG pCO2 ABG pO2 ABG HCO3 ABG Total CO2 ABG O2 Saturation ABG Base Excess Respiration Rate O2 Delivery Device Blood Gas Modality Inspired O2 Tidal Volume PEEP Sodium Potassium Chloride Carbon Dioxide BUN Creatinine Est GFR ( Amer) Est GFR (Non-Af Amer) BUN/Creatinine Ratio Glucose POC Glucose 136 H 171 H 179 H Calculated Osmolality Calcium Magnesium Fluid Source Influenza Type A (PCR) Influenza Type B (PCR) RSV (PCR) 09/02/18 09/02/18 09/02/18 19:59 20:26 21:54 WBC RBC Hgb Hct MCV MCH MCHC RDW Plt Count MPV Immature Gran % Seg Neutrophils % Lymphocytes % Monocytes % Eosinophils % Basophils % Neutrophils # Lymphocytes # Monocytes # Eosinophils # Basophils # Nucleated RBCs/100 WBC Platelet Estimate Sample Site ABG pH ABG pCO2 ABG pO2 ABG HCO3 ABG Total CO2 ABG O2 Saturation ABG Base Excess Respiration Rate O2 Delivery Device Blood Gas Modality Inspired O2 Tidal Volume PEEP Sodium Potassium Chloride Carbon Dioxide BUN Creatinine Est GFR ( Amer) Est GFR (Non-Af Amer) BUN/Creatinine Ratio Glucose POC Glucose 203 H 211 H 153 H Calculated Osmolality Calcium Magnesium Fluid Source Influenza Type A (PCR) Influenza Type B (PCR) RSV (PCR) 09/02/18 09/03/18 09/03/18 23:02 00:02 01:58 WBC RBC Hgb Hct MCV MCH MCHC RDW Plt Count MPV Immature Gran % Seg Neutrophils % Lymphocytes % Monocytes % Eosinophils % Basophils % Neutrophils # Lymphocytes # Monocytes # Eosinophils # Basophils # Nucleated RBCs/100 WBC Platelet Estimate Sample Site ABG pH ABG pCO2 ABG pO2 ABG HCO3 ABG Total CO2 ABG O2 Saturation ABG Base Excess Respiration Rate O2 Delivery Device Blood Gas Modality Inspired O2 Tidal Volume PEEP Sodium Potassium Chloride Carbon Dioxide BUN Creatinine Est GFR ( Amer) Est GFR (Non-Af Amer) BUN/Creatinine Ratio Glucose POC Glucose 143 H 137 H 124 H Calculated Osmolality Calcium Magnesium Fluid Source Influenza Type A (PCR) Influenza Type B (PCR) RSV (PCR) 09/03/18 09/03/18 09/03/18 03:02 03:36 03:36 WBC 15.5 H RBC 3.36 L Hgb 10.5 L Hct 34.5 L MCV 102.7 H MCH 31.3 MCHC 30.4 L RDW 15.8 H Plt Count 197 MPV 10.8 Immature Gran % 13.8 H Seg Neutrophils % 70.9 Lymphocytes % 10.3 Monocytes % 4.4 Eosinophils % 0.5 Basophils % 0.1 Neutrophils # 11.0 H Lymphocytes # 1.6 Monocytes # 0.7 Eosinophils # 0.1 Basophils # 0.0 Nucleated RBCs/100 WBC 1.3 H Platelet Estimate Normal Sample Site ABG pH ABG pCO2 ABG pO2 ABG HCO3 ABG Total CO2 ABG O2 Saturation ABG Base Excess Respiration Rate O2 Delivery Device Blood Gas Modality Inspired O2 Tidal Volume PEEP Sodium 143 Potassium 3.3 L Chloride 105 Carbon Dioxide 37 H BUN 21 H Creatinine 0.37 L Est GFR ( Amer) > 60 Est GFR (Non-Af Amer) > 60 BUN/Creatinine Ratio 57 H Glucose 132 H POC Glucose 122 H Calculated Osmolality 301 H Calcium 8.1 L Magnesium Fluid Source Influenza Type A (PCR) Influenza Type B (PCR) RSV (PCR) 09/03/18 09/03/18 09/03/18 03:36 04:01 04:55 WBC RBC Hgb Hct MCV MCH MCHC RDW Plt Count MPV Immature Gran % Seg Neutrophils % Lymphocytes % Monocytes % Eosinophils % Basophils % Neutrophils # Lymphocytes # Monocytes # Eosinophils # Basophils # Nucleated RBCs/100 WBC Platelet Estimate Sample Site L Radial ABG pH 7.43 ABG pCO2 59 H ABG pO2 63 L ABG HCO3 39 H ABG Total CO2 41 H ABG O2 Saturation 92 L ABG Base Excess 13 H Respiration Rate 14 O2 Delivery Device Adult Vent Blood Gas Modality ASSIST CONTROL Inspired O2 60.0 Tidal Volume 550 PEEP 8 Sodium Potassium Chloride Carbon Dioxide BUN Creatinine Est GFR ( Amer) Est GFR (Non-Af Amer) BUN/Creatinine Ratio Glucose POC Glucose 126 H Calculated Osmolality Calcium Magnesium 1.6 Fluid Source Influenza Type A (PCR) Influenza Type B (PCR) RSV (PCR) 09/03/18 09/03/18 09/03/18 05:01 07:11 08:06 WBC RBC Hgb Hct MCV MCH MCHC RDW Plt Count MPV Immature Gran % Seg Neutrophils % Lymphocytes % Monocytes % Eosinophils % Basophils % Neutrophils # Lymphocytes # Monocytes # Eosinophils # Basophils # Nucleated RBCs/100 WBC Platelet Estimate Sample Site ABG pH ABG pCO2 ABG pO2 ABG HCO3 ABG Total CO2 ABG O2 Saturation ABG Base Excess Respiration Rate O2 Delivery Device Blood Gas Modality Inspired O2 Tidal Volume PEEP Sodium Potassium Chloride Carbon Dioxide BUN Creatinine Est GFR ( Amer) Est GFR (Non-Af Amer) BUN/Creatinine Ratio Glucose POC Glucose 150 H 137 H 152 H Calculated Osmolality Calcium Magnesium Fluid Source Influenza Type A (PCR) Influenza Type B (PCR) RSV (PCR) 09/03/18 09/03/18 09/03/18 09:40 10:51 13:48 WBC RBC Hgb Hct MCV MCH MCHC RDW Plt Count MPV Immature Gran % Seg Neutrophils % Lymphocytes % Monocytes % Eosinophils % Basophils % Neutrophils # Lymphocytes # Monocytes # Eosinophils # Basophils # Nucleated RBCs/100 WBC Platelet Estimate Sample Site ABG pH ABG pCO2 ABG pO2 ABG HCO3 ABG Total CO2 ABG O2 Saturation ABG Base Excess Respiration Rate O2 Delivery Device Blood Gas Modality Inspired O2 Tidal Volume PEEP Sodium Potassium Chloride Carbon Dioxide BUN Creatinine Est GFR ( Amer) Est GFR (Non-Af Amer) BUN/Creatinine Ratio Glucose POC Glucose 179 H 201 H 189 H Calculated Osmolality Calcium Magnesium Fluid Source Influenza Type A (PCR) Influenza Type B (PCR) RSV (PCR) - ABG Interpretation ABG results: ABG ABG pH 7.43 pH Units (7.32-7.45) 09/03/18 04:55 ABG pCO2 59 mmHg (35-45) H 09/03/18 04:55 ABG pO2 63 mmHg (85-104) L 09/03/18 04:55 ABG O2 Saturation 92 % (95-98) L 09/03/18 04:55 PT/INR, D-dimer PT 12.7 Seconds (9.4-12.1) H 09/02/18 04:13 Palliative Scale - Palliative Performance Scale How ambulatory is this patient?: Totally bed bound What is patient's level of activity and evidence of disease?: Unable to do any activity, Extensive disease How much self-care assistance does patient require?: Total care How much oral intake does the patient have?: Mouth care only What is this patient's level of consciousness?: Drowsy or coma with or without confusion Palliative Performance Score: 10 % Consult Discharge Plan - Plan Referrals: NONE,PCP [Primary Care Provider] -
[2018-09-03] MEDS ORDERED: *HR* Metoprolol 5 MG/5 ML VIAL IVP ONE (14:36)
[2018-09-03] MEDS ORDERED: *HR* FentaNYL (PF) 100 MCG/2 ML VIAL IVP PRN ×2 (17:14→18:24)
[2018-09-03] MEDS ORDERED: Acetaminophen 650 MG RECTAL SUPP RC PRN (18:24)
[2018-09-03] MEDS ORDERED: FentaNYL (PF) 1,000 MCG in 0.9 % Sodium Chloride 80 ML IVC SCH (18:30)
[2018-09-03] MEDS ORDERED: Atropine 1% Opth Drops 100 DROP/5 ML BOTTLE SL PRN (18:32)
[2018-09-03] MEDS ORDERED: Levalbuterol Neb 0.63 MG/3 ML IH SCH (20:00)
[2018-09-03 20:16] VITALS: BP 108/65
[2018-09-03] MEDS ORDERED: Levalbuterol Neb 0.63 MG/3 ML IH PRN (20:28)
[2018-09-03] MEDS ORDERED: Clotrimazole 1% CRM 15 GM TUBE TP SCH (21:00)
--- NOTE | 2018-09-03 23:06 | Death Note ---
Pronouncement Note - Date and Time of Date of : 09/03/18 Time of : 20:35 - PCOD Preliminary cause of : Cardiac arrest - Additional Data Confirmation of : no pulse, no respirations, no heart sounds, pupils fixed and dilated Family: at bedside Attending/PCP notified?: No Attending physician: Smita Jensen MD Was code activated?: No Autopsy requested?: No gas examiner notified?: Yes Organ bank notified?: Yes Advance directives: Yes
--- NOTE | 2018-09-03 23:13 | Death Note ---
Discharge Sum: Summary - Date and Time Date of admission: 08/22/18 13:56 Date of : 09/03/18 Time of : 20:35 - Summary Details: The patient was moved from the critical service to the palliative floor due to poor prognosis and was placed on comfort care. I was informed by the RN that the patient became unresponsive and went into asystole. I examined the patient and noted fixed, dilated pupils. No spontaneous breathing movements were observed. There was silence on cardiac auscultation for one minute. Rhythm strip showed asystole. She was pronounced at 2035hrs on 09/03/2018 with family members at bedside. - Additional Data Confirmation of as documented by pronouncing clinician: no pulse, no respirations, no heart sounds, pupils fixed and dilated Family: at bedside Attending/PCP notified?: No Attending physician: Smita Jensen MD Was code activated?: No Autopsy requested?: No estate tax examiner notified?: Yes Organ bank notified?: No Advance directives: Yes Hospice patient?: Yes Discharge Sum: Diag - PCOD Probable Cause of : Cardiac arrest Discharge Sum: Prov - Provider Primary care physician: PCP NONE Admitting clinician: Walter Interiano Attending physician on admission: Walter Interiano Consults: 08/23/18 10:32 Consult to Palliative Care [CONS] Routine Comment: Consulting Provider: Palliative Care Christin Reason for Consult: Goals of care, [facility] hospice patient Call Completed: No Pronouncing clinician: Anil Amaya
[2018-09-04] MEDS ORDERED: Meropenem 1,000 MG in Water for inj. (sterile) 20 ML 20 ML IVP SCH
[2018-09-04] MEDS ORDERED: Metoclopramide 10 MG/2 ML VIAL IVP SCH
[2018-09-04] MEDS ORDERED: Bisacodyl 10 MG RECTAL SUPPOSITORY RC SCH (09:00)
== END 2018-09-03 20:35 | disposition expired | DRG 720 ==
LOC: ICNU 13:56 → SUATTDRO 13:56 → 2ANU 09-03 18:23
PROVIDERS: ADMIT Internal Medicine Pulmonary Disease; ATTEND Internal Medicine Pulmonary Disease